=== PATIENT | female | born 1935 | race African-American/Black ===

== ENCOUNTER 2020-01-30 13:42 | Inpatient (IN) | payer OTHER ==
[~2020-01-30] VITALS: Ht 154.9 cm; Wt 57.8 kg
[2020-01-30 13:50] VITALS: BP 86/47
[2020-01-30] MEDS ORDERED: AMLODIPINE BESY10 MG ORAL (13:59)
[2020-01-30] MEDS ORDERED: ATORVASTATIN CA40 MG GT (14:00)
--- NOTE | 2020-01-30 14:12 | Emergency Room Report ---
History of Present Illness General Chief Complaint: General Complaint Source: Medical Record, EMS Present Illness HPI Patient is a 84-year-old female brought in by EMS from her extended care facility past medical history of CVA, hemiplegia, diabetes, COPD, renal insufficiency, hyperlipidemia, hypothyroidism, GERD, CHF, and pacemaker in place who was brought into the ER for hypotension. Patient is nonverbal and therefore unable to obtain further history at this time. Patient given 300 cc of IV fluids by EMS. Patient now has blood pressure in the 90s. COVID-19 risk:Travel to affect: No Has patient experienced bliss: No Coronavirus symptoms experienc: Fever (T>100.4F or >38C) Allergies: Coded Allergies: No Known Allergies (Unverified , 01/30/20) Patient History Reviewed Nursing Documentation: PMH: Agreed; PSxH: Agreed Review of Systems All Other Systems: negative except mentioned in HPI Physical Exam Vital Signs Date Time Temp Pulse Resp B/P (MAP) Pulse Ox O2 Delivery O2 Flow Rate FiO2 01/30/20 13:43 98.1 102 18 86/47 (60) 95 Room Air Sp02 EP Interpretation: reviewed, normal General Appearance: other - Contracted elderly female nonverbal responsive to pain Head: normocephalic, atraumatic Eyes: bilateral eye normal inspection, bilateral eye PERRL ENT: normal ENT inspection Neck: full range of motion, supple/symm/no masses Respiratory: chest non-tender, lungs clear, normal breath sounds, speaking full sentences Cardiovascular #1: tachycardia Gastrointestinal: non tender, soft, other - Tube in place Rectal: deferred Genitourinary: other - Tovar catheter in place Psychiatric: other - Able to assess due to the fact the patient is nonverbal Skin: no rash Medical Decision Making Last Vital Signs Date Time Temp Pulse Resp B/P (MAP) Pulse Ox O2 Delivery O2 Flow Rate FiO2 01/30/20 13:43 98.1 102 18 86/47 (60) 95 Room Air Tamia Kruse M.D. Jan 30, 2020 14:12
[2020-01-30 14:15] VITALS: BP 90/53
[2020-01-30] MEDS ORDERED: LEVOTHYROXINE75 MCG GT (14:19)
[2020-01-30] MEDS ORDERED: DOCUSATE SODIU100 MG ORAL (14:19)
[2020-01-30] MEDS ORDERED: LACTULOSE20 GM/301 GT (14:19)
[2020-01-30] MEDS ORDERED: TYLENOL325 MG GT (14:19)
[2020-01-30] MEDS ORDERED: FAMOTIDINE20 MG ORAL (14:19)
[2020-01-30] MEDS ORDERED: LOVENOX10 M3 SUBQ (14:19)
[2020-01-30] MEDS ORDERED: MULTIVITAMINS1 EAC8 GT (14:19)
[2020-01-30] MEDS ORDERED: BISACODYL10 M1 RC (14:19)
[2020-01-30] MEDS ORDERED: CATAPRES0.1 MG GT (14:19)
[2020-01-30] MEDS ORDERED: IPRATROPIU0.2 MG/1 M HHN (14:19)
--- NOTE | 2020-01-30 14:32 | Emergency Room Report ---
History of Present Illness General Chief Complaint: General Complaint Source: Medical Record, EMS Present Illness COVID-19 risk:Travel to affect: No Has patient experienced bliss: No Coronavirus symptoms experienc: Fever (T>100.4F or >38C) Allergies: Coded Allergies: No Known Allergies (Unverified , 01/30/20) Physical Exam Vital Signs Date Time Temp Pulse Resp B/P (MAP) Pulse Ox O2 Delivery O2 Flow Rate FiO2 01/30/20 13:43 98.1 102 18 86/47 (60) 95 Room Air Procedures Critical Care Time Critical Care Time Total critical care time: Approximately 40 minutes. Due to a high probability of clinically significant, life threatening deterioration, the patient required my highest level of preparedness to intervene emergently and I personally spent this critical care time directly and personally managing the patient. This critical care time included obtaining a history; examining the patient; pulse oximetry; ordering and review of studies; arranging urgent treatment with development of a management plan; evaluation of patient's response to treatment ; frequent reassessment; and, discussions with other providers.This critical care time was performed to assess and manage the high probability of imminent, life-threatening deterioration that could result in multi-organ failure. It was exclusive of separately billable procedures and treating other patients and teaching time. Please see MDM section and the rest of the note for further information on patient assessment and treatment. Medical Decision Making Diagnostic Impression: Primary Impression: Septic shock Additional Impressions: Elevated troponin Anemia ER Course Patient has been pancultured. Patient's blood pressure improved with IV fluids. Patient's chest x-ray demonstrates no acute cardiopulmonary pathology. Patient started on vancomycin as well as cefepime for sepsis.Covid-19 swab sent. Patient also has elevated troponin. EKG demonstrates no ST elevation. Patient given aspirin. Patient has anemia not currently requiring emergent blood transfusion. Patient to be admitted to stepdown floor in critical but improved condition Laboratory Tests Test 01/30/20 15:00 01/30/20 15:50 01/30/20 16:00 Arterial Blood pH 7.482 (7.350-7.450) Arterial Blood Partial Pressure CO2 34.5 mmHg (35.0-45.0) L Arterial Blood Partial Pressure O2 96.7 mmHg (75.0-100.0) Arterial Blood HCO3 25.2 mmol/L (22.0-26.0) Arterial Blood Oxygen Saturation 97.8 % (95-100) Arterial Blood Base Excess 1.8 (-2-2) Lakhwinder Test Positive White Blood Count 31.5 K/UL (4.8-10.8) *H Red Blood Count 2.85 M/UL (4.20-5.40) L Hemoglobin 8.2 G/DL (12.0-16.0) L Hematocrit 25.0 % (37.0-47.0) L Mean Corpuscular Volume 88 FL (80-99) Mean Corpuscular Hemoglobin 28.7 PG (27.0-31.0) Mean Corpuscular Hemoglobin Concent 32.7 G/DL (32.0-36.0) Red Cell Distribution Width 15.6 % (11.6-14.8) H Platelet Count 153 K/UL (150-450) Mean Platelet Volume 8.6 FL (6.5-10.1) Neutrophils (%) (Auto) % (45.0-75.0) Lymphocytes (%) (Auto) % (20.0-45.0) Monocytes (%) (Auto) % (1.0-10.0) Eosinophils (%) (Auto) % (0.0-3.0) Basophils (%) (Auto) % (0.0-2.0) Neutrophils % (Manual) Pending Lymphocytes % (Manual) Pending Platelet Estimate Pending Platelet Morphology Pending Prothrombin Time 11.9 SEC (9.30-11.50) H Prothrombin Time INR 1.1 (0.9-1.1) Activated Partial Thromboplast Time 32 SEC (23-33) Sodium Level 137 MMOL/L (136-145) Potassium Level 5.1 MMOL/L (3.5-5.1) Chloride Level 103 MMOL/L (98-107) Carbon Dioxide Level 26 MMOL/L (21-32) Anion Gap 8 mmol/L (5-15) Blood Urea Nitrogen 49 mg/dL (7-18) H Creatinine 1.1 MG/DL (0.55-1.30) Estimated Glomerular Filtration Rate 57.7 mL/min (>60) Glucose Level 89 MG/DL (74-106) Lactic Acid Level 2.30 mmol/L (0.4-2.0) H Calcium Level 8.1 MG/DL (8.5-10.1) L Phosphorus Level 3.0 MG/DL (2.5-4.9) Magnesium Level 2.0 MG/DL (1.8-2.4) Total Bilirubin 0.2 MG/DL (0.2-1.0) Aspartate Amino Transferase (AST) 57 U/L (15-37) H Alanine Aminotransferase (ALT) 38 U/L (12-78) Alkaline Phosphatase 135 U/L (46-116) H Troponin I 0.128 ng/mL (0.000-0.056) Pro-B-Type Natriuretic Peptide > 92901 pg/mL (0-125) H Total Protein 5.6 G/DL (6.4-8.2) L Albumin 1.4 G/DL (3.4-5.0) L Globulin 4.2 g/dL Albumin/Globulin Ratio 0.3 (1.0-2.7) L Urine Color Pending Urine Appearance Pending Urine pH Pending Urine Specific [place] Pending Urine Protein Pending Urine Glucose (UA) Pending Urine Ketones Pending Urine Blood Pending Urine Nitrite Pending Urine Bilirubin Pending Urine Urobilinogen Pending Urine Leukocyte Esterase Pending Microbiology Date/Time Source Procedure Growth Status 01/30/20 15:40 Nasal Nares - Final Complete 01/30/20 15:40 Nasal Nares - Final Complete EKG Diagnostic Results EKG Time: 14:21 EP Interpretation: MD Aixa Rate: normal Rhythm: other - atrial sensed v-paced rhythm ST Segments: no acute changes ASA given to the pt in ED: No Rhythm Strip Diag. Results Rhythm Strip Time: 14:31 EP Interpretation: yes - MD Aixa Rate: 96 Rhythm: no PVC's, no ectopy, other - paced rhythm Last Vital Signs Date Time Temp Pulse Resp B/P (MAP) Pulse Ox O2 Delivery O2 Flow Rate FiO2 01/30/20 13:43 98.1 102 18 86/47 (60) 95 Room Air Disposition: ADMITTED INPATIENT Condition: Serious Physician Consult: Dr. Poly MD to admit to Step down unit in critical improved condition Sepsis Event Note Focused Exam Allergies: Coded Allergies: No Known Allergies (Unverified , 01/30/20) Date Exam Occurred: Jan 30, 2020 Time Exam Occurred: 16:00 Laboratory Studies Laboratory Tests Test 01/30/20 15:00 3/18/20 15:50 01/30/20 16:00 Arterial Blood pH 7.482 (7.350-7.450) Arterial Blood Partial Pressure CO2 34.5 mmHg (35.0-45.0) L Arterial Blood Partial Pressure O2 96.7 mmHg (75.0-100.0) Arterial Blood HCO3 25.2 mmol/L (22.0-26.0) Arterial Blood Oxygen Saturation 97.8 % (95-100) Arterial Blood Base Excess 1.8 (-2-2) Lakhwinder Test Positive White Blood Count 31.5 K/UL (4.8-10.8) *H Red Blood Count 2.85 M/UL (4.20-5.40) L Hemoglobin 8.2 G/DL (12.0-16.0) L Hematocrit 25.0 % (37.0-47.0) L Mean Corpuscular Volume 88 FL (80-99) Mean Corpuscular Hemoglobin 28.7 PG (27.0-31.0) Mean Corpuscular Hemoglobin Concent 32.7 G/DL (32.0-36.0) Red Cell Distribution Width 15.6 % (11.6-14.8) H Platelet Count 153 K/UL (150-450) Mean Platelet Volume 8.6 FL (6.5-10.1) Neutrophils (%) (Auto) % (45.0-75.0) Lymphocytes (%) (Auto) % (20.0-45.0) Monocytes (%) (Auto) % (1.0-10.0) Eosinophils (%) (Auto) % (0.0-3.0) Basophils (%) (Auto) % (0.0-2.0) Neutrophils % (Manual) Pending Lymphocytes % (Manual) Pending Platelet Estimate Pending Platelet Morphology Pending Prothrombin Time 11.9 SEC (9.30-11.50) H Prothromb Time International Ratio 1.1 (0.9-1.1) Activated Partial Thromboplast Time 32 SEC (23-33) Sodium Level 137 MMOL/L (136-145) Potassium Level 5.1 MMOL/L (3.5-5.1) Chloride Level 103 MMOL/L (98-107) Carbon Dioxide Level 26 MMOL/L (21-32) Anion Gap 8 mmol/L (5-15) Blood Urea Nitrogen 49 mg/dL (7-18) H Creatinine 1.1 MG/DL (0.55-1.30) Estimat Glomerular Filtration Rate 57.7 mL/min (>60) Glucose Level 89 MG/DL (74-106) Lactic Acid Level 2.30 mmol/L (0.4-2.0) H Calcium Level 8.1 MG/DL (8.5-10.1) L Phosphorus Level 3.0 MG/DL (2.5-4.9) Magnesium Level 2.0 MG/DL (1.8-2.4) Total Bilirubin 0.2 MG/DL (0.2-1.0) Aspartate Amino Transf (AST/SGOT) 57 U/L (15-37) H Alanine Aminotransferase (ALT/SGPT) 38 U/L (12-78) Alkaline Phosphatase 135 U/L (46-116) H Troponin I 0.128 ng/mL (0.000-0.056) Pro-B-Type Natriuretic Peptide > 49879 pg/mL (0-125) H Total Protein 5.6 G/DL (6.4-8.2) L Albumin 1.4 G/DL (3.4-5.0) L Globulin 4.2 g/dL Albumin/Globulin Ratio 0.3 (1.0-2.7) L Urine Color Pending Urine Appearance Pending Urine pH Pending Urine Specific [place] Pending Urine Protein Pending Urine Glucose (UA) Pending Urine Ketones Pending Urine Blood Pending Urine Nitrite Pending Urine Bilirubin Pending Urine Urobilinogen Pending Urine Leukocyte Esterase Pending Vital Signs Last 24 Hour Vital Signs Date Time Temp Pulse Resp B/P (MAP) Pulse Ox O2 Delivery O2 Flow Rate FiO2 01/30/20 13:50 98 18 Room Air 01/30/20 13:50 98.1 98 18 86/47 95 Room Air 01/30/20 13:43 98.1 102 18 86/47 (60) 95 Room Air Respiratory Exam: Clear Cardiovascular Exam: RRR Capillary Refill: Less Than 2 Seconds Peripheral Pulse: Strong Pulse Location: Carotid Skin Exam: Normal Tamia Gonzalez M.D. Jan 30, 2020 14:32
--- NOTE | 2020-01-30 15:04 | Diagnostic Imaging Report ---
Indication: Dyspnea Comparison: None A single view chest radiograph was obtained. Findings: No definite infiltrate or pulmonary vascular congestion identified. There is a pacemaker on the right. The heart is enlarged. The aorta is mildly enlarged consistent with atherosclerotic vascular disease. The bones are osteopenic. There are thoracic vertebral enthesophytes at multiple levels. Impression: No acute disease
[2020-01-30 15:30] VITALS: BP 92/48
[2020-01-30 16:41] LABS: ANION GAP 8 mmol/L (5-15); BLOOD UREA NITROGEN 49 mg/dL (7-18); CALCIUM 8.1 MG/DL (8.5-10.1); CARBON DIOXIDE 26 MMOL/L (21-32); CHLORIDE 103 MMOL/L (98-107); CREATININE 1.1 MG/DL (0.55-1.30); POTASSIUM 5.1 MMOL/L (3.5-5.1); SODIUM 137 MMOL/L (136-145)
[2020-01-30 16:45] LABS: HEMOGLOBIN 8.2 G/DL (12.0-16.0); INR 1.1 (0.9-1.1); MEAN CORPUSCULAR VOLUME 88 FL (80-99); PLATELET COUNT 153 K/UL (150-450); RED BLOOD COUNT 2.85 M/UL (4.20-5.40); RED CELL DISTRIBUTION WIDTH 15.6 % (11.6-14.8)
[2020-01-30 16:48] LABS: WHITE BLOOD COUNT 31.5 K/UL (4.8-10.8)
[2020-01-30 16:51] LABS: ALANINE AMINOTRANSFERASE 38 U/L (12-78); ALBUMIN 1.4 G/DL (3.4-5.0); ALBUMIN/GLOBULIN RATIO 0.3 (1.0-2.7); ALKALINE PHOSPHATASE 135 U/L (46-116); ASPARTATE AMINO TRANSFERASE 57 U/L (15-37); BILIRUBIN,TOTAL 0.2 MG/DL (0.2-1.0)
[2020-01-30] MEDS ORDERED: Cefepime 2gm ONE ×2 (16:56→17:30)
[2020-01-30] MEDS ORDERED: Cefepime HCl 2 GM in D5W 55 ML IVPB ONE (17:00)
[2020-01-30] MEDS ORDERED: Vancomycin 1.25gm/NS Premix 275 ML IVPB ONE (17:00)
[2020-01-30] MEDS ORDERED: Vancomycin 1.25gm/NS Premix 275 ML IVPB SCH (17:00)
[2020-01-30 17:10] VITALS: BP 101/52
[2020-01-30] MEDS ORDERED: Aspirin Baby 81mg NG STA (17:11)
[2020-01-30 18:07] LABS: APPEARANCE,URINE CLEAR; BILIRUBIN, URINE NEGATIVE (NEGATIVE); COLOR,URINE PALE YELLOW; GLUCOSE, URINE (UA) NEGATIVE (NEGATIVE); KETONES,URINE NEGATIVE (NEGATIVE); LEUKOCYTE ESTERASE ,URINE 3+ (NEGATIVE); NITRITE,URINE NEGATIVE (NEGATIVE); PH,URINE 6 (4.5-8.0); PROTEIN,URINE 3+ (NEGATIVE); UROBILINOGEN,URINE NORMAL MG/DL (0.0-1.0)
--- NOTE | 2020-01-30 18:48 | History and Physical ---
History of Present Illness General Date patient seen: Jan 30, 2020 Time patient seen: 18:41 Reason for Hospitalization: General Complaint Present Illness HPI 84-year-old female brought in by EMS from SNF with hypotension, she has past medical history of CVA, hemiplegia, DM, COPD, CKD, hyperlipidemia, hypothyroidism, GERD, unspecified CHF, S/p PPM Patient is nonverbal and therefore unable to obtain further history at this time. Information obtained from ED physician and chart review. Patient given fluid bolus in ED with improvement in hypotension. Lactate found to be elevated, also found to have minimal pyuria. CXR clear. Influenza swab negative. Given vanco and cefepime and referred for admission. Of note, COVID19 also sent in ER. Allergies: Coded Allergies: No Known Allergies (Unverified , 01/30/20) Medication History Scheduled Amlodipine Besylate* (Amlodipine Besylate*), 10 MG ORAL DAILY, (Reported) Atorvastatin Calcium* (Atorvastatin Calcium*), 40 MG GT BEDTIME, (Reported) Bisacodyl (Bisacodyl), 10 MG RC DAILY, (Reported) Clonidine Hcl* (Catapres*), 0.1 MG GT EVERY 6 HOURS, (Reported) Docusate Sodium* (Docusate Sodium*), 100 MG ORAL DAILY, (Reported) Enoxaparin* (Lovenox*), 300 MG SUBQ DAILY, (Reported) Famotidine* (Pepcid 20mg tablet*), 20 MG ORAL DAILY, (Reported) Levothyroxine Sodium* (Levothyroxine Sodium*), 25 MCG GT DAILY, (Reported) Multivitamin With Minerals (Multivitamins With Minerals*), 1 TAB GT DAILY, ( Reported) Scheduled PRN Acetaminophen (Tylenol), 650 MG GT Q6H PRN for Prn Pain/Headache/Temp > 101, ( Reported) Ipratropium Barry 0.5MG/2.5ML (Ipratropium Barry 0.5MG/2.5ML), 0.5 MG HHN Q6H PRN for Shortness of Breath, (Reported) Miscellaneous Medications Lactulose (Lactulose*), 20 ML GT, (Reported) Patient History Healthcare decision maker N Resuscitation status Advanced Directive on File Review of Systems ROS Narrative Unable to obtain due to medical condition Physical Exam General Appearance: alert, lethargic, confused HEENT: atraumatic, anicteric Neck: supple, normal inspection Respiratory/Chest: lungs clear, normal breath sounds, no respiratory distress Cardiovascular/Chest: normal rate, regular rhythm Abdomen: non tender, soft, no organomegaly Extremities: non-tender, normal inspection Neurologic: no motor/sensory deficits, alert Last 24 Hour Vital Signs Date Time Temp Pulse Resp B/P (MAP) Pulse Ox O2 Delivery O2 Flow Rate FiO2 01/30/20 17:10 97.9 89 18 101/52 99 Nasal Cannula 2.0 01/30/20 15:30 98.0 92 17 92/48 97 Nasal Cannula 2.0 01/30/20 14:15 95 18 90/53 100 Nasal Cannula 2.0 01/30/20 13:50 98 18 Room Air 01/30/20 13:50 98.1 98 18 86/47 95 Room Air 01/30/20 13:43 98.1 102 18 86/47 (60) 95 Room Air Laboratory Tests Test 01/30/20 15:00 01/30/20 15:50 01/30/20 16:40 Arterial Blood pH 7.482 (7.350-7.450) Arterial Blood Partial Pressure CO2 34.5 mmHg (35.0-45.0) L Arterial Blood Partial Pressure O2 96.7 mmHg (75.0-100.0) Arterial Blood HCO3 25.2 mmol/L (22.0-26.0) Arterial Blood Oxygen Saturation 97.8 % (95-100) Arterial Blood Base Excess 1.8 (-2-2) Lakhwinder Test Positive White Blood Count 31.5 K/UL (4.8-10.8) *H Red Blood Count 2.85 M/UL (4.20-5.40) L Hemoglobin 8.2 G/DL (12.0-16.0) L Hematocrit 25.0 % (37.0-47.0) L Mean Corpuscular Volume 88 FL (80-99) Mean Corpuscular Hemoglobin 28.7 PG (27.0-31.0) Mean Corpuscular Hemoglobin Concent 32.7 G/DL (32.0-36.0) Red Cell Distribution Width 15.6 % (11.6-14.8) H Platelet Count 153 K/UL (150-450) Mean Platelet Volume 8.6 FL (6.5-10.1) Neutrophils (%) (Auto) % (45.0-75.0) Lymphocytes (%) (Auto) % (20.0-45.0) Monocytes (%) (Auto) % (1.0-10.0) Eosinophils (%) (Auto) % (0.0-3.0) Basophils (%) (Auto) % (0.0-2.0) Differential Total Cells Counted 100 Neutrophils % (Manual) 65 % (45-75) Lymphocytes % (Manual) 7 % (20-45) L Monocytes % (Manual) 6 % (1-10) Eosinophils % (Manual) 0 % (0-3) Basophils % (Manual) 1 % (0-2) Band Neutrophils 21 % (0-8) H Platelet Estimate Adequate Platelet Morphology Normal Hypochromasia 1+ Anisocytosis 1+ Prothrombin Time 11.9 SEC (9.30-11.50) H Prothromb Time International Ratio 1.1 (0.9-1.1) Activated Partial Thromboplast Time 32 SEC (23-33) Sodium Level 137 MMOL/L (136-145) Potassium Level 5.1 MMOL/L (3.5-5.1) Chloride Level 103 MMOL/L (98-107) Carbon Dioxide Level 26 MMOL/L (21-32) Anion Gap 8 mmol/L (5-15) Blood Urea Nitrogen 49 mg/dL (7-18) H Creatinine 1.1 MG/DL (0.55-1.30) Estimat Glomerular Filtration Rate 57.7 mL/min (>60) Glucose Level 89 MG/DL (74-106) Lactic Acid Level 2.30 mmol/L (0.4-2.0) H Calcium Level 8.1 MG/DL (8.5-10.1) L Phosphorus Level 3.0 MG/DL (2.5-4.9) Magnesium Level 2.0 MG/DL (1.8-2.4) Total Bilirubin 0.2 MG/DL (0.2-1.0) Aspartate Amino Transf (AST/SGOT) 57 U/L (15-37) H Alanine Aminotransferase (ALT/SGPT) 38 U/L (12-78) Alkaline Phosphatase 135 U/L (46-116) H Troponin I 0.128 ng/mL (0.000-0.056) Pro-B-Type Natriuretic Peptide > 59139 pg/mL (0-125) H Total Protein 5.6 G/DL (6.4-8.2) L Albumin 1.4 G/DL (3.4-5.0) L Globulin 4.2 g/dL Albumin/Globulin Ratio 0.3 (1.0-2.7) L Urine Color Pale yellow Urine Appearance Clear Urine pH 6 (4.5-8.0) Urine Specific [place] 1.010 (1.005-1.035) Urine Protein 3+ (NEGATIVE) H Urine Glucose (UA) Negative (NEGATIVE) Urine Ketones Negative (NEGATIVE) Urine Blood 4+ (NEGATIVE) H Urine Nitrite Negative (NEGATIVE) Urine Bilirubin Negative (NEGATIVE) Urine Urobilinogen Normal MG/DL (0.0-1.0) Urine Leukocyte Esterase 3+ (NEGATIVE) H Urine RBC 0-2 /HPF (0 - 2) Urine WBC 2-4 /HPF (0 - 2) Urine Squamous Epithelial Cells Few /LPF (NONE/OCC) Urine Bacteria Few /HPF (NONE) Microbiology Date/Time Source Procedure Growth Status 01/30/20 15:40 Nasal Nares - Final Complete 01/30/20 15:40 Nasal Nares - Final Complete Height (Feet): 5 Height (Inches): 2.00 Weight (Pounds): 130 Assessment/Plan Assessment/Plan: 84 year old woman with history of CVA, hemiplegia, DM, COPD, CKD, hyperlipidemia , hypothyroidism, GERD, unspecified CHF, S/p PPM brought in from SNF with hypotension, found to be septic with leukocytosis and minimal pyuria #Sepsis #Possible UTI #Hypotension #Elevated lactate #Leukocytosis -admitted to [facility], inpatient -cardiac monitoring -continue broad spectrum antibiotics, IV saline -hold anti-hypertensives -follow up COVID 19 sent in ED, less likely -Droplet precautions for now -ID consulted #HTN #HLD #Uncspecifed CHF #Elevated BNP #S/p PPM -hold BP meds as above -check TTE -monitor closely for evidence of fluid overload -consult Cardiology #history of CVA #Likely underlying dementia #Possible acute metabolic encephalopathy due to sepsis -supportive care -monitor mentation -fall precautions, aspiration precautions -PT/OT/SUGAR TRUCKER -Frequent orienting #Unspecified CKD -monitor renal function #Hypothyroidism -cont levothyroxine I spent 70 minutes on this patient's case, and >50% was dedicated to counseling and/or care coordination. Carmine Major MD Jan 30, 2020 18:48
[2020-01-30] MEDS ORDERED: Albuterol/Ipratropium 3ml neb HHN PRN (19:00)
[2020-01-30] MEDS ORDERED: DiphenhydrAMINE 25mg Tab ORAL PRN (19:00)
[2020-01-30 20:00] VITALS: BP 130/71
[2020-01-30] MEDS ORDERED: Vancomycin 1.25gm/NS Premix IVPB ONE (20:30)
[2020-01-30] MEDS: Docusate 100mg cap ORAL SCH (20:30)
[2020-01-30] MEDS ORDERED: Cefepime HCl 1 GM in D5W 55 ML IVPB SCH (21:00)
[2020-01-30] MEDS: Heparin 5000 units/ml inj SUBQ SCH (21:00)
[2020-01-30] MEDS: Atorvastatin 20mg tab ORAL SCH (21:14)
[2020-01-31] VITALS: BP 125/51
[2020-01-31 04:00] VITALS: BP 101/47
[2020-01-31 05:10] LABS: HEMATOCRIT 23.4 % (37.0-47.0); HEMOGLOBIN 7.8 G/DL (12.0-16.0); MEAN CORPUSCULAR VOLUME 85 FL (80-99); PLATELET COUNT 140 K/UL (150-450); RED BLOOD COUNT 2.74 M/UL (4.20-5.40); RED CELL DISTRIBUTION WIDTH 13.7 % (11.6-14.8)
[2020-01-31 05:29] LABS: WHITE BLOOD COUNT 34.5 K/UL (4.8-10.8)
[2020-01-31 05:32] LABS: ANION GAP 12 mmol/L (5-15); BLOOD UREA NITROGEN 41 mg/dL (7-18); CALCIUM 8.3 MG/DL (8.5-10.1); CARBON DIOXIDE 23 MMOL/L (21-32); CHLORIDE 108 MMOL/L (98-107); POTASSIUM 3.6 MMOL/L (3.5-5.1); SODIUM 143 MMOL/L (136-145)
[2020-01-31] MEDS: Levothyroxine 25mcg tab ORAL SCH (06:07)
[2020-01-31 07:48] VITALS: BP 128/67
[2020-01-31] MEDS: Docusate 100mg cap ORAL SCH ×2 (09:00→20:22)
[2020-01-31] MEDS: Heparin 5000 units/ml inj SUBQ SCH ×2 (09:43→20:22)
--- NOTE | 2020-01-31 11:28 | Consultation ---
History of Present Illness General Date patient seen: Jan 31, 2020 Time patient seen: 11:20 Chief Complaint: General Complaint Present Illness HPI 84-year-old female brought in by EMS from SNF with hypotension, she has past medical history of CVA, hemiplegia, DM, COPD, CKD, hyperlipidemia, hypothyroidism, GERD, unspecified CHF, S/p PPM Patient is nonverbal Patient given fluid bolus in ED with improvement in hypotension. Lactate found to be elevated, also found to have minimal pyuria. CXR clear. Influenza swab negative. Given vanco and cefepime and referred for admission. Cardiology consulted for CHF Allergies: Coded Allergies: No Known Allergies (Unverified , 01/30/20) Medication History Scheduled Amlodipine Besylate* (Amlodipine Besylate*), 10 MG ORAL DAILY, (Reported) Atorvastatin Calcium* (Atorvastatin Calcium*), 40 MG GT BEDTIME, (Reported) Bisacodyl (Bisacodyl), 10 MG RC DAILY, (Reported) Clonidine Hcl* (Catapres*), 0.1 MG GT EVERY 6 HOURS, (Reported) Docusate Sodium* (Docusate Sodium*), 100 MG ORAL DAILY, (Reported) Enoxaparin* (Lovenox*), 300 MG SUBQ DAILY, (Reported) Famotidine* (Pepcid 20mg tablet*), 20 MG ORAL DAILY, (Reported) Levothyroxine Sodium* (Levothyroxine Sodium*), 25 MCG GT DAILY, (Reported) Multivitamin With Minerals (Multivitamins With Minerals*), 1 TAB GT DAILY, ( Reported) Scheduled PRN Acetaminophen (Tylenol), 650 MG GT Q6H PRN for Prn Pain/Headache/Temp > 101, ( Reported) Ipratropium [place] 0.5MG/2.5ML (Ipratropium [place] 0.5MG/2.5ML), 0.5 MG HHN Q6H PRN for Shortness of Breath, (Reported) Miscellaneous Medications Lactulose (Lactulose*), 20 ML GT, (Reported) Patient History Healthcare decision maker N Resuscitation status Full Code Advanced Directive on File Review of Systems Constitutional: Reports: no symptoms Eye: Reports: no symptoms ENT: Reports: no symptoms Respiratory: Reports: no symptoms Cardiovascular: Reports: no symptoms Gastrointestinal: Reports: no symptoms Genitourinary: Reports: no symptoms Musculoskeletal: Reports: no symptoms Skin: Reports: no symptoms Psychiatric: Reports: no symptoms Neurological: Reports: no symptoms Endocrine: Reports: no symptoms Hematologic/Lymphatic: Reports: no symptoms Physical Exam General Appearance: lethargic, confused Lines, tubes and drains: peripheral HEENT: normocephalic, atraumatic, anicteric, mucous membranes moist, PERRL Neck: non-tender, normal alignment, supple, normal inspection Respiratory/Chest: chest wall non-tender, lungs clear Cardiovascular/Chest: normal peripheral pulses, normal rate, regular rhythm Abdomen: normal bowel sounds, non tender, soft, no organomegaly, no mass Extremities: normal range of motion, non-tender, normal inspection, no calf tenderness, normal capillary refill, non-pitting Skin Exam: normal pigmentation, warm/dry, cyanotic Neurologic: marker delivery II-XII grossly normal, no motor/sensory deficits Last 24 Hour Vital Signs Date Time Temp Pulse Resp B/P (MAP) Pulse Ox O2 Delivery O2 Flow Rate FiO2 01/31/20 08:00 Nasal Cannula 2.0 01/31/20 08:00 107 01/31/20 07:48 98.1 109 22 128/67 (87) 100 01/31/20 04:00 Nasal Cannula 2.0 01/31/20 04:00 118 01/31/20 04:00 98.6 118 22 101/47 (65) 96 01/31/20 00:00 115 01/31/20 00:00 98.2 119 24 125/51 (75) 96 01/31/20 00:00 Nasal Cannula 2.0 01/30/20 20:58 Nasal Cannula 2.0 01/30/20 20:36 121 01/30/20 20:00 98.0 118 24 130/71 (90) 96 01/30/20 19:45 97.9 89 18 101/52 99 Nasal Cannula 2.0 01/30/20 17:10 97.9 89 18 101/52 99 Nasal Cannula 2.0 01/30/20 15:30 98.0 92 17 92/48 97 Nasal Cannula 2.0 01/30/20 14:15 95 18 90/53 100 Nasal Cannula 2.0 01/30/20 13:50 98 18 Room Air 01/30/20 13:50 98.1 98 18 86/47 95 Room Air 01/30/20 13:43 98.1 102 18 86/47 (60) 95 Room Air Intake and Output 01/30/20 01/31/20 19:00 07:00 Intake Total 0 ml 640 ml Output Total 1000 ml Balance 0 ml -360 ml Intake Oral 0 ml IV Total 600 ml Tube Feeding 40 ml Output Urine Total 1000 ml # Bowel Movements 3 Laboratory Tests Test 01/30/20 15:00 01/30/20 15:50 01/30/20 16:40 01/30/20 19:30 Arterial Blood pH 7.482 (7.350-7.450) Arterial Blood Partial Pressure CO2 34.5 mmHg (35.0-45.0) L Arterial Blood Partial Pressure O2 96.7 mmHg (75.0-100.0) Arterial Blood HCO3 25.2 mmol/L (22.0-26.0) Arterial Blood Oxygen Saturation 97.8 % (95-100) Arterial Blood Base Excess 1.8 (-2-2) Lakhwinder Test Positive White Blood Count 31.5 K/UL (4.8-10.8) *H Red Blood Count 2.85 M/UL (4.20-5.40) L Hemoglobin 8.2 G/DL (12.0-16.0) L Hematocrit 25.0 % (37.0-47.0) L Mean Corpuscular Volume 88 FL (80-99) Mean Corpuscular Hemoglobin 28.7 PG (27.0-31.0) Mean Corpuscular Hemoglobin Concent 32.7 G/DL (32.0-36.0) Red Cell Distribution Width 15.6 % (11.6-14.8) H Platelet Count 153 K/UL (150-450) Mean Platelet Volume 8.6 FL (6.5-10.1) Neutrophils (%) (Auto) % (45.0-75.0) Lymphocytes (%) (Auto) % (20.0-45.0) Monocytes (%) (Auto) % (1.0-10.0) Eosinophils (%) (Auto) % (0.0-3.0) Basophils (%) (Auto) % (0.0-2.0) Differential Total Cells Counted 100 Neutrophils % (Manual) 65 % (45-75) Lymphocytes % (Manual) 7 % (20-45) L Monocytes % (Manual) 6 % (1-10) Eosinophils % (Manual) 0 % (0-3) Basophils % (Manual) 1 % (0-2) Band Neutrophils 21 % (0-8) H Platelet Estimate Adequate Platelet Morphology Normal Hypochromasia 1+ Anisocytosis 1+ Prothrombin Time 11.9 SEC (9.30-11.50) H Prothromb Time International Ratio 1.1 (0.9-1.1) Activated Partial Thromboplast Time 32 SEC (23-33) Sodium Level 137 MMOL/L (136-145) Potassium Level 5.1 MMOL/L (3.5-5.1) Chloride Level 103 MMOL/L (98-107) Carbon Dioxide Level 26 MMOL/L (21-32) Anion Gap 8 mmol/L (5-15) Blood Urea Nitrogen 49 mg/dL (7-18) H Creatinine 1.1 MG/DL (0.55-1.30) Estimat Glomerular Filtration Rate 57.7 mL/min (>60) Glucose Level 89 MG/DL (74-106) Lactic Acid Level 2.30 mmol/L (0.4-2.0) H 3.20 mmol/L (0.66-2.22) H Calcium Level 8.1 MG/DL (8.5-10.1) L Phosphorus Level 3.0 MG/DL (2.5-4.9) Magnesium Level 2.0 MG/DL (1.8-2.4) Total Bilirubin 0.2 MG/DL (0.2-1.0) Aspartate Amino Transf (AST/SGOT) 57 U/L (15-37) H Alanine Aminotransferase (ALT/SGPT) 38 U/L (12-78) Alkaline Phosphatase 135 U/L (46-116) H Troponin I 0.128 ng/mL (0.000-0.056) Pro-B-Type Natriuretic Peptide > 46133 pg/mL (0-125) H Total Protein 5.6 G/DL (6.4-8.2) L Albumin 1.4 G/DL (3.4-5.0) L Globulin 4.2 g/dL Albumin/Globulin Ratio 0.3 (1.0-2.7) L Urine Color Pale yellow Urine Appearance Clear Urine pH 6 (4.5-8.0) Urine Specific [place] 1.010 (1.005-1.035) Urine Protein 3+ (NEGATIVE) H Urine Glucose (UA) Negative (NEGATIVE) Urine Ketones Negative (NEGATIVE) Urine Blood 4+ (NEGATIVE) H Urine Nitrite Negative (NEGATIVE) Urine Bilirubin Negative (NEGATIVE) Urine Urobilinogen Normal MG/DL (0.0-1.0) Urine Leukocyte Esterase 3+ (NEGATIVE) H Urine RBC 0-2 /HPF (0 - 2) Urine WBC 2-4 /HPF (0 - 2) Urine Squamous Epithelial Cells Few /LPF (NONE/OCC) Urine Bacteria Few /HPF (NONE) Test 01/31/20 04:00 White Blood Count 34.5 K/UL (4.8-10.8) *H Red Blood Count 2.74 M/UL (4.20-5.40) L Hemoglobin 7.8 G/DL (12.0-16.0) L Hematocrit 23.4 % (37.0-47.0) L Mean Corpuscular Volume 85 FL (80-99) Mean Corpuscular Hemoglobin 28.4 PG (27.0-31.0) Mean Corpuscular Hemoglobin Concent 33.2 G/DL (32.0-36.0) Red Cell Distribution Width 13.7 % (11.6-14.8) Platelet Count 140 K/UL (150-450) L Mean Platelet Volume 7.1 FL (6.5-10.1) Neutrophils (%) (Auto) % (45.0-75.0) Lymphocytes (%) (Auto) % (20.0-45.0) Monocytes (%) (Auto) % (1.0-10.0) Eosinophils (%) (Auto) % (0.0-3.0) Basophils (%) (Auto) % (0.0-2.0) Differential Total Cells Counted 100 Neutrophils % (Manual) 64 % (45-75) Lymphocytes % (Manual) 2 % (20-45) L Monocytes % (Manual) 6 % (1-10) Eosinophils % (Manual) 2 % (0-3) Basophils % (Manual) 1 % (0-2) Promyelocytes % % (0-0) Band Neutrophils 25 % (0-8) H Platelet Estimate Decreased L Platelet Morphology Normal Hypochromasia 1+ Sodium Level 143 MMOL/L (136-145) Potassium Level 3.6 MMOL/L (3.5-5.1) Chloride Level 108 MMOL/L (98-107) H Carbon Dioxide Level 23 MMOL/L (21-32) Anion Gap 12 mmol/L (5-15) Blood Urea Nitrogen 41 mg/dL (7-18) H Creatinine 1.0 MG/DL (0.55-1.30) Estimat Glomerular Filtration Rate > 60 mL/min (>60) Glucose Level 58 MG/DL (74-106) L Lactic Acid Level 1.10 mmol/L (0.4-2.0) Calcium Level 8.3 MG/DL (8.5-10.1) L Microbiology Date/Time Source Procedure Growth Status 01/30/20 16:40 Blood Blood Culture - Preliminary Resulted 01/30/20 16:40 Blood Blood Culture - Preliminary Resulted 01/30/20 15:40 Nasal Nares - Final Complete 01/30/20 15:40 Nasal Nares - Final Complete Height (Feet): 5 Height (Inches): 2.00 Weight (Pounds): 115 Medications Current Medications Medications (Trade) Dose Ordered Sig/[place] Route PRN Reason Start Time Stop Time Status Last Admin Dose Admin Acetaminophen (Tylenol) 650 mg Q4H PRN ORAL Mild Pain (Pain Scale 1-3) 01/30/20 19:00 02/29/20 18:59 Albuterol/ Ipratropium (Albuterol/ Ipratropium) 3 ml Q6H PRN HHN Shortness of Breath 01/30/20 19:00 02/04/20 18:59 Atorvastatin Calcium (Lipitor) 40 mg BEDTIME ORAL 01/30/20 21:00 04/29/20 20:59 01/30/20 21:14 Cefepime HCl 2 gm/ Dextrose 110 ml @ 220 mls/hr Q12H IV 01/31/20 17:00 02/07/20 16:59 Dextrose (Dextrose 50%) 25 ml Q30M PRN IV Hypoglycemia 01/30/20 19:00 04/29/20 18:59 Dextrose (Dextrose 50%) 50 ml Q30M PRN IV Hypoglycemia 01/30/20 19:00 04/29/20 18:59 Diphenhydramine HCl (Benadryl) 25 mg Q6H PRN ORAL Itching/Pruritis 01/30/20 19:00 02/29/20 18:59 Docusate Sodium (Colace) 100 mg EVERY 12 HOURS ORAL 01/30/20 21:00 02/29/20 20:59 Heparin Sodium (Porcine) (Heparin 5000 units/ml) 5,000 units EVERY 12 HOURS SUBQ 01/30/20 21:00 03/15/20 20:59 01/31/20 09:43 Levothyroxine Sodium (Synthroid) 25 mcg DAILY@0630 ORAL 01/31/20 06:30 03/01/20 06:29 01/31/20 06:07 Ondansetron HCl (Zofran) 4 mg Q6H PRN IVP Nausea & Vomiting 01/30/20 19:00 02/29/20 18:59 Sodium Chloride 1,000 ml @ 100 mls/hr Q10H IVLG 01/30/20 19:48 02/29/20 19:47 01/31/20 06:07 Vancomycin HCl (Vanco rx to dose) 1 ea DAILY PRN MISC Per rx protocol 01/30/20 19:00 02/29/20 18:59 Vancomycin HCl 750 mg/Sodium Chloride 275 ml @ 183.333 mls/hr Q24H IVPB 01/31/20 21:00 02/05/20 20:59 Assessment/Plan Status: stable Assessment/Plan: Assessment/Plan Assessment/Plan: CVA Non verbal DM COPD CKD CHF GERD Pacemaker Hypotension Sepsis -Monitor on telemetry -IV fluids for hypotension -Hold blood pressure medications -Hold diuresis for now - no signs of volume overload -Echocardiogram pending -Continue to trend troponin/EKG -If patient develops dynamic ECG changes will start heparin, no signs of ACS at this time -Empiric IV abx for elevated WBC, unlikey COVID due to lack of CXR findings and lack of leukopenia Dennis Crain MD Jan 31, 2020 11:28
[2020-01-31 12:00] VITALS: BP 126/59
--- NOTE | 2020-01-31 12:08 | Consultation ---
History of Present Illness General Date patient seen: Jan 31, 2020 Chief Complaint: General Complaint Present Illness HPI This is a 84-year-old female with multiple medical comorbidities who was brought in by EMS from her care facility for evaluation of hypotension. Patient with past medical history of CVA, hemiplegia, diabetes, COPD, renal insufficiency, hyperlipidemia, hypothyroidism, GERD, CHF, and pacemaker. Med list as below.. Patient is nonverbal and therefore unable to obtain further history at this time. She is seemingly comfortable tracking with eyes but no significant verbal aspects. On admission identified to have severe leukocytosis , lactic acidosis, abnormal labs. Given IV fluid resuscitation and admitted further care management. Potentially with abdominal pain on examination as during abdominal exam she retracts. Surgery called to evaluate and assist with care. Patient seen, patient evaluated, chart reviewed Allergies: Coded Allergies: No Known Allergies (Unverified , 01/30/20) Medication History Scheduled Amlodipine Besylate* (Amlodipine Besylate*), 10 MG ORAL DAILY, (Reported) Atorvastatin Calcium* (Atorvastatin Calcium*), 40 MG GT BEDTIME, (Reported) Bisacodyl (Bisacodyl), 10 MG RC DAILY, (Reported) Clonidine Hcl* (Catapres*), 0.1 MG GT EVERY 6 HOURS, (Reported) Docusate Sodium* (Docusate Sodium*), 100 MG ORAL DAILY, (Reported) Enoxaparin* (Lovenox*), 300 MG SUBQ DAILY, (Reported) Famotidine* (Pepcid 20mg tablet*), 20 MG ORAL DAILY, (Reported) Levothyroxine Sodium* (Levothyroxine Sodium*), 25 MCG GT DAILY, (Reported) Multivitamin With Minerals (Multivitamins With Minerals*), 1 TAB GT DAILY, ( Reported) Scheduled PRN Acetaminophen (Tylenol), 650 MG GT Q6H PRN for Prn Pain/Headache/Temp > 101, ( Reported) Ipratropium [place] 0.5MG/2.5ML (Ipratropium [place] 0.5MG/2.5ML), 0.5 MG HHN Q6H PRN for Shortness of Breath, (Reported) Miscellaneous Medications Lactulose (Lactulose*), 20 ML GT, (Reported) Patient History Limited by: medical condition History Provided By: Medical Record, PMD Healthcare decision maker N Resuscitation status Full Code Advanced Directive on File Past Medical/Surgical History Past Medical/Surgical History: (1) Septic shock (2) Anemia (3) Elevated troponin (4) Sepsis Review of Systems ROS Narrative Cannot obtain given patient's baseline medical condition and mental status currently Physical Exam General Appearance: mild distress Lines, tubes and drains: peripheral HEENT: normocephalic, atraumatic, anicteric, mucous membranes moist Neck: supple, normal inspection Respiratory/Chest: no respiratory distress, no accessory muscle use, decreased breath sounds Cardiovascular/Chest: normal rate, regular rhythm Abdomen: soft, no organomegaly, no mass Genitourinary/Rectal: normal rectal exam Extremities: non-tender, normal inspection, normal capillary refill Skin Exam: warm/dry Neurologic: no motor/sensory deficits, alert, unresponsiveness Last 24 Hour Vital Signs Date Time Temp Pulse Resp B/P (MAP) Pulse Ox O2 Delivery O2 Flow Rate FiO2 01/31/20 08:00 Nasal Cannula 2.0 01/31/20 08:00 107 01/31/20 07:48 98.1 109 22 128/67 (87) 100 01/31/20 04:00 Nasal Cannula 2.0 01/31/20 04:00 118 01/31/20 04:00 98.6 118 22 101/47 (65) 96 01/31/20 00:00 115 01/31/20 00:00 98.2 119 24 125/51 (75) 96 01/31/20 00:00 Nasal Cannula 2.0 01/30/20 20:58 Nasal Cannula 2.0 01/30/20 20:36 121 01/30/20 20:00 98.0 118 24 130/71 (90) 96 01/30/20 19:45 97.9 89 18 101/52 99 Nasal Cannula 2.0 01/30/20 17:10 97.9 89 18 101/52 99 Nasal Cannula 2.0 01/30/20 15:30 98.0 92 17 92/48 97 Nasal Cannula 2.0 01/30/20 14:15 95 18 90/53 100 Nasal Cannula 2.0 01/30/20 13:50 98 18 Room Air 01/30/20 13:50 98.1 98 18 86/47 95 Room Air 01/30/20 13:43 98.1 102 18 86/47 (60) 95 Room Air Intake and Output 01/30/20 01/31/20 19:00 07:00 Intake Total 0 ml 640 ml Output Total 1000 ml Balance 0 ml -360 ml Intake Oral 0 ml IV Total 600 ml Tube Feeding 40 ml Output Urine Total 1000 ml # Bowel Movements 3 Laboratory Tests Test 01/30/20 15:00 01/30/20 15:50 01/30/20 16:40 01/30/20 19:30 Arterial Blood pH 7.482 (7.350-7.450) Arterial Blood Partial Pressure CO2 34.5 mmHg (35.0-45.0) L Arterial Blood Partial Pressure O2 96.7 mmHg (75.0-100.0) Arterial Blood HCO3 25.2 mmol/L (22.0-26.0) Arterial Blood Oxygen Saturation 97.8 % (95-100) Arterial Blood Base Excess 1.8 (-2-2) Lakhwinder Test Positive White Blood Count 31.5 K/UL (4.8-10.8) *H Red Blood Count 2.85 M/UL (4.20-5.40) L Hemoglobin 8.2 G/DL (12.0-16.0) L Hematocrit 25.0 % (37.0-47.0) L Mean Corpuscular Volume 88 FL (80-99) Mean Corpuscular Hemoglobin 28.7 PG (27.0-31.0) Mean Corpuscular Hemoglobin Concent 32.7 G/DL (32.0-36.0) Red Cell Distribution Width 15.6 % (11.6-14.8) H Platelet Count 153 K/UL (150-450) Mean Platelet Volume 8.6 FL (6.5-10.1) Neutrophils (%) (Auto) % (45.0-75.0) Lymphocytes (%) (Auto) % (20.0-45.0) Monocytes (%) (Auto) % (1.0-10.0) Eosinophils (%) (Auto) % (0.0-3.0) Basophils (%) (Auto) % (0.0-2.0) Differential Total Cells Counted 100 Neutrophils % (Manual) 65 % (45-75) Lymphocytes % (Manual) 7 % (20-45) L Monocytes % (Manual) 6 % (1-10) Eosinophils % (Manual) 0 % (0-3) Basophils % (Manual) 1 % (0-2) Band Neutrophils 21 % (0-8) H Platelet Estimate Adequate Platelet Morphology Normal Hypochromasia 1+ Anisocytosis 1+ Prothrombin Time 11.9 SEC (9.30-11.50) H Prothromb Time International Ratio 1.1 (0.9-1.1) Activated Partial Thromboplast Time 32 SEC (23-33) Sodium Level 137 MMOL/L (136-145) Potassium Level 5.1 MMOL/L (3.5-5.1) Chloride Level 103 MMOL/L (98-107) Carbon Dioxide Level 26 MMOL/L (21-32) Anion Gap 8 mmol/L (5-15) Blood Urea Nitrogen 49 mg/dL (7-18) H Creatinine 1.1 MG/DL (0.55-1.30) Estimat Glomerular Filtration Rate 57.7 mL/min (>60) Glucose Level 89 MG/DL (74-106) Lactic Acid Level 2.30 mmol/L (0.4-2.0) H 3.20 mmol/L (0.66-2.22) H Calcium Level 8.1 MG/DL (8.5-10.1) L Phosphorus Level 3.0 MG/DL (2.5-4.9) Magnesium Level 2.0 MG/DL (1.8-2.4) Total Bilirubin 0.2 MG/DL (0.2-1.0) Aspartate Amino Transf (AST/SGOT) 57 U/L (15-37) H Alanine Aminotransferase (ALT/SGPT) 38 U/L (12-78) Alkaline Phosphatase 135 U/L (46-116) H Troponin I 0.128 ng/mL (0.000-0.056) Pro-B-Type Natriuretic Peptide > 69283 pg/mL (0-125) H Total Protein 5.6 G/DL (6.4-8.2) L Albumin 1.4 G/DL (3.4-5.0) L Globulin 4.2 g/dL Albumin/Globulin Ratio 0.3 (1.0-2.7) L Urine Color Pale yellow Urine Appearance Clear Urine pH 6 (4.5-8.0) Urine Specific [place] 1.010 (1.005-1.035) Urine Protein 3+ (NEGATIVE) H Urine Glucose (UA) Negative (NEGATIVE) Urine Ketones Negative (NEGATIVE) Urine Blood 4+ (NEGATIVE) H Urine Nitrite Negative (NEGATIVE) Urine Bilirubin Negative (NEGATIVE) Urine Urobilinogen Normal MG/DL (0.0-1.0) Urine Leukocyte Esterase 3+ (NEGATIVE) H Urine RBC 0-2 /HPF (0 - 2) Urine WBC 2-4 /HPF (0 - 2) Urine Squamous Epithelial Cells Few /LPF (NONE/OCC) Urine Bacteria Few /HPF (NONE) Test 01/31/20 04:00 White Blood Count 34.5 K/UL (4.8-10.8) *H Red Blood Count 2.74 M/UL (4.20-5.40) L Hemoglobin 7.8 G/DL (12.0-16.0) L Hematocrit 23.4 % (37.0-47.0) L Mean Corpuscular Volume 85 FL (80-99) Mean Corpuscular Hemoglobin 28.4 PG (27.0-31.0) Mean Corpuscular Hemoglobin Concent 33.2 G/DL (32.0-36.0) Red Cell Distribution Width 13.7 % (11.6-14.8) Platelet Count 140 K/UL (150-450) L Mean Platelet Volume 7.1 FL (6.5-10.1) Neutrophils (%) (Auto) % (45.0-75.0) Lymphocytes (%) (Auto) % (20.0-45.0) Monocytes (%) (Auto) % (1.0-10.0) Eosinophils (%) (Auto) % (0.0-3.0) Basophils (%) (Auto) % (0.0-2.0) Differential Total Cells Counted 100 Neutrophils % (Manual) 64 % (45-75) Lymphocytes % (Manual) 2 % (20-45) L Monocytes % (Manual) 6 % (1-10) Eosinophils % (Manual) 2 % (0-3) Basophils % (Manual) 1 % (0-2) Promyelocytes % % (0-0) Band Neutrophils 25 % (0-8) H Platelet Estimate Decreased L Platelet Morphology Normal Hypochromasia 1+ Sodium Level 143 MMOL/L (136-145) Potassium Level 3.6 MMOL/L (3.5-5.1) Chloride Level 108 MMOL/L (98-107) H Carbon Dioxide Level 23 MMOL/L (21-32) Anion Gap 12 mmol/L (5-15) Blood Urea Nitrogen 41 mg/dL (7-18) H Creatinine 1.0 MG/DL (0.55-1.30) Estimat Glomerular Filtration Rate > 60 mL/min (>60) Glucose Level 58 MG/DL (74-106) L Lactic Acid Level 1.10 mmol/L (0.4-2.0) Calcium Level 8.3 MG/DL (8.5-10.1) L Microbiology Date/Time Source Procedure Growth Status 01/30/20 16:40 Blood Blood Culture - Preliminary Resulted 01/30/20 16:40 Blood Blood Culture - Preliminary Resulted 01/30/20 15:40 Nasal Nares - Final Complete 01/30/20 15:40 Nasal Nares - Final Complete Height (Feet): 5 Height (Inches): 2.00 Weight (Pounds): 115 Medications Current Medications Medications (Trade) Dose Ordered Sig/[place] Route PRN Reason Start Time Stop Time Status Last Admin Dose Admin Acetaminophen (Tylenol) 650 mg Q4H PRN ORAL Mild Pain (Pain Scale 1-3) 01/30/20 19:00 02/29/20 18:59 Albuterol/ Ipratropium (Albuterol/ Ipratropium) 3 ml Q6H PRN HHN Shortness of Breath 01/30/20 19:00 02/04/20 18:59 Atorvastatin Calcium (Lipitor) 40 mg BEDTIME ORAL 01/30/20 21:00 04/29/20 20:59 01/30/20 21:14 Cefepime HCl 2 gm/ Dextrose 110 ml @ 220 mls/hr Q12H IV 01/31/20 17:00 02/07/20 16:59 Dextrose (Dextrose 50%) 25 ml Q30M PRN IV Hypoglycemia 01/30/20 19:00 04/29/20 18:59 Dextrose (Dextrose 50%) 50 ml Q30M PRN IV Hypoglycemia 01/30/20 19:00 04/29/20 18:59 Diphenhydramine HCl (Benadryl) 25 mg Q6H PRN ORAL Itching/Pruritis 01/30/20 19:00 02/29/20 18:59 Docusate Sodium (Colace) 100 mg EVERY 12 HOURS ORAL 01/30/20 21:00 02/29/20 20:59 Heparin Sodium (Porcine) (Heparin 5000 units/ml) 5,000 units EVERY 12 HOURS SUBQ 01/30/20 21:00 03/15/20 20:59 01/31/20 09:43 Levothyroxine Sodium (Synthroid) 25 mcg DAILY@0630 ORAL 01/31/20 06:30 03/01/20 06:29 01/31/20 06:07 Ondansetron HCl (Zofran) 4 mg Q6H PRN IVP Nausea & Vomiting 01/30/20 19:00 02/29/20 18:59 Sodium Chloride 1,000 ml @ 100 mls/hr Q10H IVLG 01/30/20 19:48 02/29/20 19:47 01/31/20 06:07 Vancomycin HCl (Vanco rx to dose) 1 ea DAILY PRN MISC Per rx protocol 01/30/20 19:00 02/29/20 18:59 Vancomycin HCl 750 mg/Sodium Chloride 275 ml @ 183.333 mls/hr Q24H IVPB 01/31/20 21:00 02/05/20 20:59 Assessment/Plan Problem List: (1) Septic shock Assessment & Plan: Patient presented to emergency department with sepsis hypotension tachycardia lactic acidosis leukocytosis. On IV antibiotics Labs improving IV hydration Continue tube feeds advance goal as tolerated Abdominal exam does elicit patient to retract a bit but she is not tender peritonitis or without rebound or significant guarding. Likely startle effect rather than intra-abdominal pathology will follow with serial exams continue with current care plan thank you for let me participate in patient's care ICD Codes: A41.9 - Sepsis, unspecified organism; R65.21 - Severe sepsis with septic shock SNOMED: 43355804 (2) Decubitus skin ulcer Assessment & Plan: 84-year-old female presented on admission with multiple decubitus skin ulcers and skin concerns. Patient identified to have a unstageable sacral lower back decubitus ulcer, periwound maceration, area of necrotic eschar soft, no drainage, no abscess, no foul odor ICD Codes: L89.90 - Pressure ulcer of unspecified site, unspecified stage SNOMED: 912280808 Luther Mercedes Jan 31, 2020 12:08
--- NOTE | 2020-01-31 13:13 | General Progress Note ---
Assessment/Plan Status: stable Assessment/Plan: 84 year old woman with history of CVA, hemiplegia, DM, COPD, CKD, hyperlipidemia , hypothyroidism, GERD, unspecified CHF, S/p PPM brought in from SNF with hypotension, found to be septic with leukocytosis and minimal pyuria #Sepsis #Possible UTI #Hypotension #Elevated lactate, improved #Leukocytosis, increased to 34K -continue inpatient level of care -cardiac monitoring -continue broad spectrum antibiotics, IV fluids -hold anti-hypertensives -follow up COVID 19 sent in ED, less likely -Droplet precautions for now -ID consult #HTN #HLD #Uncspecifed CHF #Elevated BNP #S/p PPM -hold BP meds as above -TTE pending -monitor closely for evidence of fluid overload -Cards eval appreciated #history of CVA #Likely underlying dementia #Possible acute metabolic encephalopathy due to sepsis -supportive care -monitor mentation -fall precautions, aspiration precautions -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 Subjective Date patient seen: Jan 31, 2020 ROS Limited/Unobtainable: Yes Allergies: Coded Allergies: No Known Allergies (Unverified , 01/30/20) Subjective Follow up for sepsis, unclear source. No acute events overnight. WBC remains elevated. Objective Last 24 Hour Vital Signs Date Time Temp Pulse Resp B/P (MAP) Pulse Ox O2 Delivery O2 Flow Rate FiO2 01/31/20 12:00 Nasal Cannula 2.0 01/31/20 11:53 113 01/31/20 08:00 Nasal Cannula 2.0 01/31/20 08:00 107 01/31/20 07:48 98.1 109 22 128/67 (87) 100 01/31/20 04:00 Nasal Cannula 2.0 01/31/20 04:00 118 01/31/20 04:00 98.6 118 22 101/47 (65) 96 01/31/20 00:00 115 01/31/20 00:00 98.2 119 24 125/51 (75) 96 01/31/20 00:00 Nasal Cannula 2.0 01/30/20 20:58 Nasal Cannula 2.0 01/30/20 20:36 121 01/30/20 20:00 98.0 118 24 130/71 (90) 96 01/30/20 19:45 97.9 89 18 101/52 99 Nasal Cannula 2.0 01/30/20 17:10 97.9 89 18 101/52 99 Nasal Cannula 2.0 01/30/20 15:30 98.0 92 17 92/48 97 Nasal Cannula 2.0 01/30/20 14:15 95 18 90/53 100 Nasal Cannula 2.0 01/30/20 13:50 98 18 Room Air 01/30/20 13:50 98.1 98 18 86/47 95 Room Air 01/30/20 13:43 98.1 102 18 86/47 (60) 95 Room Air Intake and Output 01/30/20 01/31/20 19:00 07:00 Intake Total 0 ml 640 ml Output Total 1000 ml Balance 0 ml -360 ml Intake Oral 0 ml IV Total 600 ml Tube Feeding 40 ml Output Urine Total 1000 ml # Bowel Movements 3 Laboratory Tests 01/30/20 15:00: Arterial Blood pH 7.482H, Arterial Blood Partial Pressure CO2 34.5L, Arterial Blood Partial Pressure O2 96.7, Arterial Blood HCO3 25.2, Arterial Blood Oxygen Saturation 97.8, Arterial Blood Base Excess 1.8, Lakhwinder Test Positive 01/30/20 15:50: White Blood Count 31.5*H, Red Blood Count 2.85L, Hemoglobin 8.2L, Hematocrit 25.0L, Mean Corpuscular Volume 88, Mean Corpuscular Hemoglobin 28.7, Mean Corpuscular Hemoglobin Concent 32.7, Red Cell Distribution Width 15.6H, Platelet Count 153, Mean Platelet Volume 8.6, Neutrophils (%) (Auto) , Lymphocytes (%) (Auto) , Monocytes (%) (Auto) , Eosinophils (%) (Auto) , Basophils (%) (Auto) , Differential Total Cells Counted 100, Neutrophils % ( Manual) 65, Lymphocytes % (Manual) 7L, Monocytes % (Manual) 6, Eosinophils % ( Manual) 0, Basophils % (Manual) 1, Band Neutrophils 21H, Platelet Estimate Adequate, Platelet Morphology Normal, Hypochromasia 1+, Anisocytosis 1+, Prothrombin Time 11.9H, Prothromb Time International Ratio 1.1, Activated Partial Thromboplast Time 32, Sodium Level 137, Potassium Level 5.1, Chloride Level 103, Carbon Dioxide Level 26, Anion Gap 8, Blood Urea Nitrogen 49H, Creatinine 1.1, Estimat Glomerular Filtration Rate 57.7, Glucose Level 89, Lactic Acid Level 2.30H, Calcium Level 8.1L, Phosphorus Level 3.0, Magnesium Level 2.0, Total Bilirubin 0.2, Aspartate Amino Transf (AST/SGOT) 57H, Alanine Aminotransferase (ALT/SGPT) 38, Alkaline Phosphatase 135H, Troponin I 0.128H, Pro-B-Type Natriuretic Peptide > 82795H, Total Protein 5.6L, Albumin 1.4L, Globulin 4.2, Albumin/Globulin Ratio 0.3L 01/30/20 16:40: Urine Color Pale yellow, Urine Appearance Clear, Urine pH 6, Urine Specific [place] 1.010, Urine Protein 3+H, Urine Glucose (UA) Negative, Urine Ketones Negative, Urine Blood 4+H, Urine Nitrite Negative, Urine Bilirubin Negative, Urine Urobilinogen Normal, Urine Leukocyte Esterase 3+H, Urine RBC 0-2, Urine WBC 2-4, Urine Squamous Epithelial Cells Few, Urine Bacteria Few 01/30/20 19:30: Lactic Acid Level 3.20H 01/31/20 04:00: White Blood Count 34.5*H, Red Blood Count 2.74L, Hemoglobin 7.8L, Hematocrit 23.4L, Mean Corpuscular Volume 85, Mean Corpuscular Hemoglobin 28.4, Mean Corpuscular Hemoglobin Concent 33.2, Red Cell Distribution Width 13.7, Platelet Count 140L, Mean Platelet Volume 7.1, Neutrophils (%) (Auto) , Lymphocytes (%) ( Auto) , Monocytes (%) (Auto) , Eosinophils (%) (Auto) , Basophils (%) (Auto) , Differential Total Cells Counted 100, Neutrophils % (Manual) 64, Lymphocytes % ( Manual) 2L, Monocytes % (Manual) 6, Eosinophils % (Manual) 2, Basophils % ( Manual) 1, Promyelocytes % , Band Neutrophils 25H, Platelet Estimate DecreasedL , Platelet Morphology Normal, Hypochromasia 1+, Sodium Level 143, Potassium Level 3.6, Chloride Level 108H, Carbon Dioxide Level 23, Anion Gap 12, Blood Urea Nitrogen 41H, Creatinine 1.0, Estimat Glomerular Filtration Rate > 60, Glucose Level 58L, Lactic Acid Level 1.10, Calcium Level 8.3L Height (Feet): 5 Height (Inches): 2.00 Weight (Pounds): 115 General Appearance: alert, confused Neck: supple Cardiovascular: normal rate, regular rhythm Respiratory/Chest: lungs clear, normal breath sounds Abdomen: non tender, soft Carmine Major MD Jan 31, 2020 13:13
[2020-01-31 16:00] VITALS: BP 137/87
[2020-01-31] MEDS ORDERED: Cefepime 2gm/D5W 110ml IV SCH ×4 (17:00)
[2020-01-31 20:00] VITALS: BP 133/82
[2020-01-31] MEDS: Atorvastatin 20mg tab ORAL SCH (20:40)
[2020-01-31] MEDS: Vancomycin 750mg/NS 275ml IVPB SCH ×2 (20:40)
--- NOTE | 2020-01-31 21:04 | Consultation ---
History of Present Illness General Date patient seen: Jan 31, 2020 Reason for Hospitalization: lethargy Present Illness HPI 84-year-old female brought in by EMS from SNF with hypotension, she has past medical history of CVA, hemiplegia, DM, COPD, CKD, hyperlipidemia, hypothyroidism, GERD, unspecified CHF, S/p PPM Patient is nonverbal and therefore unable to obtain further history at this time. Information obtained from ED physician and chart review. Patient given fluid bolus in ED with improvement in hypotension. Lactate found to be elevated, also found to have minimal pyuria. CXR clear. Influenza swab negative. Given vanco and cefepime and referred for admission Unable to give much history Allergies: Coded Allergies: No Known Allergies (Unverified , 01/30/20) Medication History Scheduled Amlodipine Besylate* (Amlodipine Besylate*), 10 MG ORAL DAILY, (Reported) Atorvastatin Calcium* (Atorvastatin Calcium*), 40 MG GT BEDTIME, (Reported) Bisacodyl (Bisacodyl), 10 MG RC DAILY, (Reported) Clonidine Hcl* (Catapres*), 0.1 MG GT EVERY 6 HOURS, (Reported) Docusate Sodium* (Docusate Sodium*), 100 MG ORAL DAILY, (Reported) Enoxaparin* (Lovenox*), 300 MG SUBQ DAILY, (Reported) Famotidine* (Pepcid 20mg tablet*), 20 MG ORAL DAILY, (Reported) Levothyroxine Sodium* (Levothyroxine Sodium*), 25 MCG GT DAILY, (Reported) Multivitamin With Minerals (Multivitamins With Minerals*), 1 TAB GT DAILY, ( Reported) Scheduled PRN Acetaminophen (Tylenol), 650 MG GT Q6H PRN for Prn Pain/Headache/Temp > 101, ( Reported) Ipratropium [place] 0.5MG/2.5ML (Ipratropium [place] 0.5MG/2.5ML), 0.5 MG HHN Q6H PRN for Shortness of Breath, (Reported) Miscellaneous Medications Lactulose (Lactulose*), 20 ML GT, (Reported) Patient History Healthcare decision maker N Resuscitation status Full Code Advanced Directive on File Review of Systems Review of Symptoms unable Physical Exam Physical Exam General appearance: lethargic Head: Normocephalic, without obvious abnormality, atraumatic Eyes: conjunctivae/corneas clear. PERRL, EOM's intact. Fundi benign Throat: Lips, mucosa, and tongue normal. Teeth and gums normal Neck: supple, symmetrical, trachea midline, no adenopathy, thyroid: not enlarged, symmetric, no tenderness/mass/nodules, no carotid bruit and no JVD Lungs: clear to auscultation bilaterally Heart: regular rate and rhythm, S1, S2 normal, no murmur, click, rub or gallop Abdomen: soft, non-tender. Bowel sounds normal. No masses, no organomegaly Extremities: extremities normal, atraumatic, no cyanosis or edema Pulses: 2+ and symmetric Skin: Skin color, texture, turgor normal. No rashes or lesions Neurologic: withdraws all UEs, TP in LEs, lethargic cc 35 min Last 24 Hour Vital Signs Date Time Temp Pulse Resp B/P (MAP) Pulse Ox O2 Delivery O2 Flow Rate FiO2 01/31/20 20:00 Nasal Cannula 2.0 01/31/20 20:00 97.0 108 18 133/82 (99) 98 01/31/20 16:00 96.8 118 22 137/87 (104) 100 01/31/20 16:00 Nasal Cannula 2.0 01/31/20 15:08 110 01/31/20 12:00 Nasal Cannula 2.0 01/31/20 12:00 96.8 110 20 126/59 (81) 100 01/31/20 11:53 113 01/31/20 08:00 Nasal Cannula 2.0 01/31/20 08:00 107 01/31/20 07:48 98.1 109 22 128/67 (87) 100 01/31/20 04:00 Nasal Cannula 2.0 01/31/20 04:00 118 01/31/20 04:00 98.6 118 22 101/47 (65) 96 01/31/20 00:00 115 01/31/20 00:00 98.2 119 24 125/51 (75) 96 01/31/20 00:00 Nasal Cannula 2.0 Intake and Output 01/30/20 01/31/20 19:00 07:00 Intake Total 0 ml 640 ml Output Total 1000 ml Balance 0 ml -360 ml Intake Oral 0 ml IV Total 600 ml Tube Feeding 40 ml Output Urine Total 1000 ml # Bowel Movements 3 Laboratory Tests Test 01/31/20 04:00 White Blood Count 34.5 K/UL (4.8-10.8) *H Red Blood Count 2.74 M/UL (4.20-5.40) L Hemoglobin 7.8 G/DL (12.0-16.0) L Hematocrit 23.4 % (37.0-47.0) L Mean Corpuscular Volume 85 FL (80-99) Mean Corpuscular Hemoglobin 28.4 PG (27.0-31.0) Mean Corpuscular Hemoglobin Concent 33.2 G/DL (32.0-36.0) Red Cell Distribution Width 13.7 % (11.6-14.8) Platelet Count 140 K/UL (150-450) L Mean Platelet Volume 7.1 FL (6.5-10.1) Neutrophils (%) (Auto) % (45.0-75.0) Lymphocytes (%) (Auto) % (20.0-45.0) Monocytes (%) (Auto) % (1.0-10.0) Eosinophils (%) (Auto) % (0.0-3.0) Basophils (%) (Auto) % (0.0-2.0) Differential Total Cells Counted 100 Neutrophils % (Manual) 64 % (45-75) Lymphocytes % (Manual) 2 % (20-45) L Monocytes % (Manual) 6 % (1-10) Eosinophils % (Manual) 2 % (0-3) Basophils % (Manual) 1 % (0-2) Promyelocytes % % (0-0) Band Neutrophils 25 % (0-8) H Platelet Estimate Decreased L Platelet Morphology Normal Hypochromasia 1+ Sodium Level 143 MMOL/L (136-145) Potassium Level 3.6 MMOL/L (3.5-5.1) Chloride Level 108 MMOL/L (98-107) H Carbon Dioxide Level 23 MMOL/L (21-32) Anion Gap 12 mmol/L (5-15) Blood Urea Nitrogen 41 mg/dL (7-18) H Creatinine 1.0 MG/DL (0.55-1.30) Estimat Glomerular Filtration Rate > 60 mL/min (>60) Glucose Level 58 MG/DL (74-106) L Lactic Acid Level 1.10 mmol/L (0.4-2.0) Calcium Level 8.3 MG/DL (8.5-10.1) L Height (Feet): 5 Height (Inches): 2.00 Weight (Pounds): 115 Medications Current Medications Medications (Trade) Dose Ordered Sig/More[place] Route PRN Reason Start Time Stop Time Status Last Admin Dose Admin Acetaminophen (Tylenol) 650 mg Q4H PRN ORAL Mild Pain (Pain Scale 1-3) 01/30/20 19:00 02/29/20 18:59 Albuterol/ Ipratropium (Albuterol/ Ipratropium) 3 ml Q6H PRN HHN Shortness of Breath 01/30/20 19:00 02/04/20 18:59 Atorvastatin Calcium (Lipitor) 40 mg BEDTIME ORAL 01/30/20 21:00 04/29/20 20:59 01/31/20 20:40 Cefepime HCl 2 gm/ Dextrose 110 ml @ 220 mls/hr Q12H IV 01/31/20 17:00 02/07/20 16:59 01/31/20 16:21 Dextrose (Dextrose 50%) 25 ml Q30M PRN IV Hypoglycemia 01/30/20 19:00 04/29/20 18:59 Dextrose (Dextrose 50%) 50 ml Q30M PRN IV Hypoglycemia 01/30/20 19:00 04/29/20 18:59 Diphenhydramine HCl (Benadryl) 25 mg Q6H PRN ORAL Itching/Pruritis 01/30/20 19:00 02/29/20 18:59 Docusate Sodium (Colace) 100 mg EVERY 12 HOURS ORAL 01/30/20 21:00 02/29/20 20:59 Heparin Sodium (Porcine) (Heparin 5000 units/ml) 5,000 units EVERY 12 HOURS SUBQ 01/30/20 21:00 03/15/20 20:59 01/31/20 09:43 Levothyroxine Sodium (Synthroid) 25 mcg DAILY@0630 ORAL 01/31/20 06:30 03/01/20 06:29 01/31/20 06:07 Ondansetron HCl (Zofran) 4 mg Q6H PRN IVP Nausea & Vomiting 01/30/20 19:00 02/29/20 18:59 Vancomycin HCl (Vanco rx to dose) 1 ea DAILY PRN MISC Per rx protocol 01/30/20 19:00 02/29/20 18:59 Vancomycin HCl 750 mg/Sodium Chloride 275 ml @ 183.333 mls/hr Q24H IVPB 01/31/20 21:00 02/05/20 20:59 01/31/20 20:40 Assessment/Plan Problem List: (1) Septic shock ICD Codes: A41.9 - Sepsis, unspecified organism; R65.21 - Severe sepsis with septic shock SNOMED: 64767097 (2) Anemia ICD Codes: D64.9 - Anemia, unspecified SNOMED: 091282711 (3) Elevated troponin ICD Codes: R79.89 - Other specified abnormal findings of blood chemistry; R65.21 - Severe sepsis with septic shock SNOMED: 146485478, 955849798, 642856036 (4) Sepsis ICD Codes: A41.9 - Sepsis, unspecified organism SNOMED: 07919692 (5) Decubitus skin ulcer ICD Codes: L89.90 - Pressure ulcer of unspecified site, unspecified stage SNOMED: 721673196 Assessment/Plan: Acute encephalopathy in the context of sepsis Dementia, likely vascular Hx of strokes Monitor neuro exam Delirium precautions atb m, broad spectrum FU cultures asa daily MIPS Hospital declaration INPATIENT level of care is warranted for this patient because patient is a 89 year old with who presents with suspicion of . I have a high level of concern because . Patient is at high risk for . Plan of care/treatment include . Patient care is expected to be greater than 2 midnights. OBSERVATION level of care is warranted for this patient. Patient is a 89 year old with who presents with . Patient will be admitted for 1 midnight, but if additional night(s) is/are necessary, patient will be converted to inpatient status for the entire hospitalization Disposition: Once the patient is stable to leave the hospital, I anticipate the patient will likely be discharged to the following environment: Estimated discharge date: I spent 70 minutes on this patient's case, and minutes was dedicated to counseling and/or care coordination. MIPS ([employer]it-based Incentive Payment System) Applicable CPT: 23657, 56236 CHECK ALL THAT ARE MET: Measure #5 (CHF): All ages. Prescribe JOVON/ARB upon discharge for patients with left ventricular systolic dysfunction. If not, the reason is clearly documented in the medical chart. Measure #8 (CHF): All ages. Prescribe a beta олег upon discharge for patients with left ventricular systolic dysfunction. If not, the reason is clearly documented in the medical chart. Measure #47 Advance care plan or surrogate decision maker documented in the medical record. Measure #130 The provider has documented, updated, or reviewed the patients current medication list and has documented it in the patients note. Measure #374 (All): Send report to referring provider. Measure #407(Sepsis due to MSSA bacteremia): Age 18+ Patient treated with a beta-lactam antibiotic (Nafcillin, Oxacillin or Cefazolin) as definitive therapy. MEDICAL COMPLEXITY High complexity medical decision making (need 2/3 categories) Problem - need 4 points Acute/new problem with new plan for workup (4 points, 1 max) Acute/new problem without additional workup (3 points, 1 max) Unstable chronic problem actively being managed (2 point each, 2 max) Stable chronic problem actively being managed (1 point each, 2 max) Self-limited/transient process (constipation, muscle ache, etc) (1 point each , 2 max) Data - need 4 points Reviewed labs/imaging studies (1 points, 2 max) Independent review of imaging (EKG, xrays, etc) (2 points, 2 max) Discussed case with consult/other MD/RN (2 points, 2 max) High Risk - qualify if have one of the following: Severe exacerbation of acute problem, acute mental status change, IV narcotics , monitoring drug levels (vancomycin, INR, tacrolimus etc) Luis Nash MD Jan 31, 2020 21:04
--- NOTE | 2020-01-31 21:31 | Infectious Diseases Prog Note ---
Assessment/Plan Assessment/Plan Full consult dictated: A) 1) gram neg bacteremia, ? uti, ? other source, severe leukocytosis, sepsis 2) being ruled out for covid-19 - low clinical suspicion 3) pmn noted P) 1) meropenem and vancomycin 2) f/u labs, check cultures 3) consider CT abdomen and pelvis once covid-19 ruled out 4) thank you Subjective Allergies: Coded Allergies: No Known Allergies (Unverified , 01/30/20) Objective Vital Signs Last 24 Hour Vital Signs Date Time Temp Pulse Resp B/P (MAP) Pulse Ox O2 Delivery O2 Flow Rate FiO2 01/31/20 20:00 Nasal Cannula 2.0 01/31/20 20:00 97.0 108 18 133/82 (99) 98 01/31/20 19:05 108 01/31/20 16:00 96.8 118 22 137/87 (104) 100 01/31/20 16:00 Nasal Cannula 2.0 01/31/20 15:08 110 01/31/20 12:00 Nasal Cannula 2.0 01/31/20 12:00 96.8 110 20 126/59 (81) 100 01/31/20 11:53 113 01/31/20 08:00 Nasal Cannula 2.0 01/31/20 08:00 107 01/31/20 07:48 98.1 109 22 128/67 (87) 100 01/31/20 04:00 Nasal Cannula 2.0 01/31/20 04:00 118 01/31/20 04:00 98.6 118 22 101/47 (65) 96 01/31/20 00:00 115 01/31/20 00:00 98.2 119 24 125/51 (75) 96 01/31/20 00:00 Nasal Cannula 2.0 Height (Feet): 5 Height (Inches): 2.00 Weight (Pounds): 115 Microbiology Date/Time Source Procedure Growth Status 01/30/20 16:40 Blood Blood Culture - Preliminary Resulted 01/30/20 16:40 Blood Blood Culture - Preliminary Resulted 01/30/20 15:40 Nasal Nares - Final Complete 01/30/20 15:40 Nasal Nares - Final Complete Laboratory Tests Test 01/31/20 04:00 White Blood Count 34.5 K/UL (4.8-10.8) *H Red Blood Count 2.74 M/UL (4.20-5.40) L Hemoglobin 7.8 G/DL (12.0-16.0) L Hematocrit 23.4 % (37.0-47.0) L Mean Corpuscular Volume 85 FL (80-99) Mean Corpuscular Hemoglobin 28.4 PG (27.0-31.0) Mean Corpuscular Hemoglobin Concent 33.2 G/DL (32.0-36.0) Red Cell Distribution Width 13.7 % (11.6-14.8) Platelet Count 140 K/UL (150-450) L Mean Platelet Volume 7.1 FL (6.5-10.1) Neutrophils (%) (Auto) % (45.0-75.0) Lymphocytes (%) (Auto) % (20.0-45.0) Monocytes (%) (Auto) % (1.0-10.0) Eosinophils (%) (Auto) % (0.0-3.0) Basophils (%) (Auto) % (0.0-2.0) Differential Total Cells Counted 100 Neutrophils % (Manual) 64 % (45-75) Lymphocytes % (Manual) 2 % (20-45) L Monocytes % (Manual) 6 % (1-10) Eosinophils % (Manual) 2 % (0-3) Basophils % (Manual) 1 % (0-2) Promyelocytes % % (0-0) Band Neutrophils 25 % (0-8) H Platelet Estimate Decreased L Platelet Morphology Normal Hypochromasia 1+ Sodium Level 143 MMOL/L (136-145) Potassium Level 3.6 MMOL/L (3.5-5.1) Chloride Level 108 MMOL/L (98-107) H Carbon Dioxide Level 23 MMOL/L (21-32) Anion Gap 12 mmol/L (5-15) Blood Urea Nitrogen 41 mg/dL (7-18) H Creatinine 1.0 MG/DL (0.55-1.30) Estimat Glomerular Filtration Rate > 60 mL/min (>60) Glucose Level 58 MG/DL (74-106) L Lactic Acid Level 1.10 mmol/L (0.4-2.0) Calcium Level 8.3 MG/DL (8.5-10.1) L Current Medications Medications (Trade) Dose Ordered Sig/[place] Route PRN Reason Start Time Stop Time Status Last Admin Dose Admin Acetaminophen (Tylenol) 650 mg Q4H PRN ORAL Mild Pain (Pain Scale 1-3) 01/30/20 19:00 02/29/20 18:59 Albuterol/ Ipratropium (Albuterol/ Ipratropium) 3 ml Q6H PRN HHN Shortness of Breath 01/30/20 19:00 02/04/20 18:59 Atorvastatin Calcium (Lipitor) 40 mg BEDTIME ORAL 01/30/20 21:00 04/29/20 20:59 01/31/20 20:40 Cefepime HCl 2 gm/ Dextrose 110 ml @ 220 mls/hr Q12H IV 01/31/20 17:00 02/07/20 16:59 01/31/20 16:21 Dextrose (Dextrose 50%) 25 ml Q30M PRN IV Hypoglycemia 01/30/20 19:00 04/29/20 18:59 Dextrose (Dextrose 50%) 50 ml Q30M PRN IV Hypoglycemia 01/30/20 19:00 04/29/20 18:59 Diphenhydramine HCl (Benadryl) 25 mg Q6H PRN ORAL Itching/Pruritis 01/30/20 19:00 02/29/20 18:59 Docusate Sodium (Colace) 100 mg EVERY 12 HOURS ORAL 01/30/20 21:00 02/29/20 20:59 Heparin Sodium (Porcine) (Heparin 5000 units/ml) 5,000 units EVERY 12 HOURS SUBQ 01/30/20 21:00 03/15/20 20:59 01/31/20 09:43 Levothyroxine Sodium (Synthroid) 25 mcg DAILY@0630 ORAL 01/31/20 06:30 03/01/20 06:29 01/31/20 06:07 Ondansetron HCl (Zofran) 4 mg Q6H PRN IVP Nausea & Vomiting 01/30/20 19:00 02/29/20 18:59 Vancomycin HCl (Vanco rx to dose) 1 ea DAILY PRN MISC Per rx protocol 01/30/20 19:00 02/29/20 18:59 Vancomycin HCl 750 mg/Sodium Chloride 275 ml @ 183.333 mls/hr Q24H IVPB 01/31/20 21:00 02/05/20 20:59 01/31/20 20:40 Abiodun Jacobo MD Jan 31, 2020 21:31
[2020-02-01] VITALS: BP 128/69
[2020-02-01 04:00] VITALS: BP 126/74
[2020-02-01 05:10] LABS: HEMATOCRIT 26.8 % (37.0-47.0); HEMOGLOBIN 8.9 G/DL (12.0-16.0); MEAN CORPUSCULAR VOLUME 85 FL (80-99); PLATELET COUNT 144 K/UL (150-450); RED BLOOD COUNT 3.16 M/UL (4.20-5.40); RED CELL DISTRIBUTION WIDTH 14.1 % (11.6-14.8)
[2020-02-01 05:22] LABS: WHITE BLOOD COUNT 38.2 K/UL (4.8-10.8)
[2020-02-01 05:43] LABS: ALANINE AMINOTRANSFERASE 43 U/L (12-78); ALBUMIN 1.5 G/DL (3.4-5.0); ALBUMIN/GLOBULIN RATIO 0.3 (1.0-2.7); ALKALINE PHOSPHATASE 175 U/L (46-116); AMYLASE 18 U/L (25-115); ANION GAP 11 mmol/L (5-15); ASPARTATE AMINO TRANSFERASE 93 U/L (15-37); BILIRUBIN,TOTAL 0.3 MG/DL (0.2-1.0); BLOOD UREA NITROGEN 32 mg/dL (7-18); CARBON DIOXIDE 24 MMOL/L (21-32); CHLORIDE 113 MMOL/L (98-107); CREATININE 0.8 MG/DL (0.55-1.30); POTASSIUM 3.4 MMOL/L (3.5-5.1); SODIUM 148 MMOL/L (136-145)
[2020-02-01] MEDS: Levothyroxine 25mcg tab ORAL SCH (05:59)
[2020-02-01 07:56] VITALS: BP 120/64
[2020-02-01] MEDS: Docusate 100mg cap ORAL SCH ×2 (09:00→20:01)
[2020-02-01] MEDS: Heparin 5000 units/ml inj SUBQ SCH ×2 (09:14→20:02)
--- NOTE | 2020-02-01 09:45 | Cardiology Progress Note ---
Assessment/Plan Status: stable Assessment/Plan Assessment/Plan Assessment/Plan: CVA Non verbal DM COPD CKD CHF GERD Pacemaker Hypotension Sepsis -Monitor on telemetry -IV fluids for hypotension -Hold blood pressure medications -Hold diuresis for now - no signs of volume overload -Echocardiogram normal LV function, PA pressure mild 38 mmHg, no significant valvular disease -Continue to trend troponin/EKG -If patient develops dynamic ECG changes will start heparin, no signs of ACS at this time -Empiric IV abx for elevated WBC, unlikey COVID due to lack of CXR findings and lack of leukopenia Subjective Cardiovascular: Reports: no symptoms Respiratory: Reports: no symptoms Gastrointestinal/Abdominal: Reports: no symptoms Genitourinary: Reports: no symptoms Subjective No acute events, Patient AAOx1 no distress tolerating tube feeds, WBC remains elevated, tachycardic Objective Last 24 Hour Vital Signs Date Time Temp Pulse Resp B/P (MAP) Pulse Ox O2 Delivery O2 Flow Rate FiO2 02/01/20 08:00 Nasal Cannula 2.0 02/01/20 08:00 2.0 02/01/20 07:56 98.1 118 20 120/64 (82) 100 02/01/20 04:00 97.8 105 20 126/74 (91) 99 02/01/20 04:00 Nasal Cannula 2.0 02/01/20 04:00 2.0 02/01/20 03:39 121 02/01/20 00:00 120 02/01/20 00:00 2.0 02/01/20 00:00 Nasal Cannula 2.0 02/01/20 00:00 97.5 101 18 128/69 (88) 98 01/31/20 20:00 2.0 01/31/20 20:00 Nasal Cannula 2.0 01/31/20 20:00 97.0 108 18 133/82 (99) 98 01/31/20 19:20 97 Nasal Cannula 2.0 28 01/31/20 19:20 81 24 97 Nasal Cannula 2.0 28 01/31/20 19:05 108 01/31/20 16:00 96.8 118 22 137/87 (104) 100 01/31/20 16:00 Nasal Cannula 2.0 01/31/20 15:08 110 01/31/20 12:00 Nasal Cannula 2.0 01/31/20 12:00 96.8 110 20 126/59 (81) 100 01/31/20 11:53 113 General Appearance: no apparent distress, alert EENT: PERRL/EOMI, normal ENT inspection Neck: non-tender, normal alignment, supple, normal inspection, no JVD Rhythm: NSR Cardiovascular: normal peripheral pulses, normal rate, regular rhythm Respiratory/Chest: chest wall non-tender, lungs clear, normal breath sounds, no respiratory distress, no accessory muscle use Abdomen: normal bowel sounds, non tender, soft, no organomegaly, no mass Extremities: normal range of motion, non-tender, normal inspection, no swelling 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 normal, no motor/sensory deficits Intake and Output 01/31/20 02/01/20 19:00 07:00 Intake Total 410 ml 986.666 ml Output Total 1200 ml 875 ml Balance -790 ml 111.666 ml Free Water 50 ml 50 ml IV Total 466.666 ml Tube Feeding 360 ml 470 ml Output Urine Total 1200 ml 875 ml # Bowel Movements 1 Laboratory Tests Test 02/01/20 04:10 White Blood Count 38.2 K/UL (4.8-10.8) *H Red Blood Count 3.16 M/UL (4.20-5.40) L Hemoglobin 8.9 G/DL (12.0-16.0) L Hematocrit 26.8 % (37.0-47.0) L Mean Corpuscular Volume 85 FL (80-99) Mean Corpuscular Hemoglobin 28.2 PG (27.0-31.0) Mean Corpuscular Hemoglobin Concent 33.3 G/DL (32.0-36.0) Red Cell Distribution Width 14.1 % (11.6-14.8) Platelet Count 144 K/UL (150-450) L Mean Platelet Volume 7.3 FL (6.5-10.1) Neutrophils (%) (Auto) % (45.0-75.0) Lymphocytes (%) (Auto) % (20.0-45.0) Monocytes (%) (Auto) % (1.0-10.0) Eosinophils (%) (Auto) % (0.0-3.0) Basophils (%) (Auto) % (0.0-2.0) Differential Total Cells Counted 100 Neutrophils % (Manual) 85 % (45-75) H Lymphocytes % (Manual) 3 % (20-45) L Monocytes % (Manual) 2 % (1-10) Eosinophils % (Manual) 0 % (0-3) Basophils % (Manual) 0 % (0-2) Band Neutrophils 10 % (0-8) H Platelet Estimate Decreased L Platelet Morphology Normal Anisocytosis 1+ Erythrocyte Sedimentation Rate 4 MM/HR (0-30) Prothrombin Time 10.8 SEC (9.30-11.50) Prothromb Time International Ratio 1.0 (0.9-1.1) Activated Partial Thromboplast Time 30 SEC (23-33) Sodium Level 148 MMOL/L (136-145) H Potassium Level 3.4 MMOL/L (3.5-5.1) L Chloride Level 113 MMOL/L (98-107) H Carbon Dioxide Level 24 MMOL/L (21-32) Anion Gap 11 mmol/L (5-15) Blood Urea Nitrogen 32 mg/dL (7-18) H Creatinine 0.8 MG/DL (0.55-1.30) Estimat Glomerular Filtration Rate > 60 mL/min (>60) Glucose Level 134 MG/DL (74-106) H Lactic Acid Level 1.10 mmol/L (0.4-2.0) Calcium Level 9.0 MG/DL (8.5-10.1) Total Bilirubin 0.3 MG/DL (0.2-1.0) Aspartate Amino Transf (AST/SGOT) 93 U/L (15-37) H Alanine Aminotransferase (ALT/SGPT) 43 U/L (12-78) Alkaline Phosphatase 175 U/L (46-116) H C-Reactive Protein, Quantitative 27.4 mg/dL (0.00-0.90) H Total Protein 6.4 G/DL (6.4-8.2) Albumin 1.5 G/DL (3.4-5.0) L Globulin 4.9 g/dL Albumin/Globulin Ratio 0.3 (1.0-2.7) L Amylase Level 18 U/L (25-115) L Lipase 102 U/L (73-393) Microbiology Date/Time Source Procedure Growth Status 01/30/20 16:40 Blood Blood Culture - Preliminary Gram Negative Bacillus 1 Resulted 01/30/20 16:40 Blood Blood Culture - Preliminary Gram Negative Bacillus 1 Resulted 01/30/20 15:40 Nasal Nares - Final Complete 01/30/20 15:40 Nasal Nares - Final Complete Dennis Crain MD Feb 01, 2020 09:45
--- NOTE | 2020-02-01 10:23 | Neurology Progress Note ---
Interim History Interim History ROS Limited/Unobtainable: Yes Interim History remains lethargic, vitals better Objective Physical Exam Last Vital Signs Date Time Temp Pulse Resp B/P (MAP) Pulse Ox O2 Delivery O2 Flow Rate FiO2 02/01/20 08:00 Nasal Cannula 2.0 02/01/20 08:00 122 02/01/20 07:56 98.1 20 120/64 (82) 100 01/31/20 19:20 28 Laboratory Tests Test 02/01/20 04:10 White Blood Count 38.2 K/UL (4.8-10.8) *H Red Blood Count 3.16 M/UL (4.20-5.40) L Hemoglobin 8.9 G/DL (12.0-16.0) L Hematocrit 26.8 % (37.0-47.0) L Mean Corpuscular Volume 85 FL (80-99) Mean Corpuscular Hemoglobin 28.2 PG (27.0-31.0) Mean Corpuscular Hemoglobin Concent 33.3 G/DL (32.0-36.0) Red Cell Distribution Width 14.1 % (11.6-14.8) Platelet Count 144 K/UL (150-450) L Mean Platelet Volume 7.3 FL (6.5-10.1) Neutrophils (%) (Auto) % (45.0-75.0) Lymphocytes (%) (Auto) % (20.0-45.0) Monocytes (%) (Auto) % (1.0-10.0) Eosinophils (%) (Auto) % (0.0-3.0) Basophils (%) (Auto) % (0.0-2.0) Differential Total Cells Counted 100 Neutrophils % (Manual) 85 % (45-75) H Lymphocytes % (Manual) 3 % (20-45) L Monocytes % (Manual) 2 % (1-10) Eosinophils % (Manual) 0 % (0-3) Basophils % (Manual) 0 % (0-2) Band Neutrophils 10 % (0-8) H Platelet Estimate Decreased L Platelet Morphology Normal Anisocytosis 1+ Erythrocyte Sedimentation Rate 4 MM/HR (0-30) Prothrombin Time 10.8 SEC (9.30-11.50) Prothromb Time International Ratio 1.0 (0.9-1.1) Activated Partial Thromboplast Time 30 SEC (23-33) Sodium Level 148 MMOL/L (136-145) H Potassium Level 3.4 MMOL/L (3.5-5.1) L Chloride Level 113 MMOL/L (98-107) H Carbon Dioxide Level 24 MMOL/L (21-32) Anion Gap 11 mmol/L (5-15) Blood Urea Nitrogen 32 mg/dL (7-18) H Creatinine 0.8 MG/DL (0.55-1.30) Estimat Glomerular Filtration Rate > 60 mL/min (>60) Glucose Level 134 MG/DL (74-106) H Lactic Acid Level 1.10 mmol/L (0.4-2.0) Calcium Level 9.0 MG/DL (8.5-10.1) Total Bilirubin 0.3 MG/DL (0.2-1.0) Aspartate Amino Transf (AST/SGOT) 93 U/L (15-37) H Alanine Aminotransferase (ALT/SGPT) 43 U/L (12-78) Alkaline Phosphatase 175 U/L (46-116) H C-Reactive Protein, Quantitative 27.4 mg/dL (0.00-0.90) H Total Protein 6.4 G/DL (6.4-8.2) Albumin 1.5 G/DL (3.4-5.0) L Globulin 4.9 g/dL Albumin/Globulin Ratio 0.3 (1.0-2.7) L Amylase Level 18 U/L (25-115) L Lipase 102 U/L (73-393) Head: normocophalic, atraumatic Neck: no rigidity EENT: benign Neurologic Exam Sensory: other - cc 35 min Objective lethargic, minimal withdraw in all 4 Impression/Recommendations Problems: (1) Septic shock (2) Anemia (3) Elevated troponin (4) Sepsis (5) Decubitus skin ulcer Status: stable Diagnostic Impression Acute encephalopathy in the context of sepsis Dementia, likely vascular Hx of strokes Monitor neuro exam Delirium precautions atb m, broad spectrum FU cultures asa daily Luis Nash MD Feb 01, 2020 10:23
--- NOTE | 2020-02-01 11:06 | Diagnostic Imaging Report ---
Indication: Abdominal pain Technique: Supine view of the abdomen Comparison: None Findings: There is a gastrostomy. Bowel gas pattern is unremarkable. No masses or unusual calcifications. Biventricular pacemaker is noted in the lower chest Impression: No acute process
--- NOTE | 2020-02-01 11:07 | Diagnostic Imaging Report ---
Indication: Cough Technique: One view of the chest Comparison: 01/30/2020 Findings: Lungs and pleural spaces are clear. The heart size is normal. There is a right chest biventricular pacemaker Impression: No acute process
[2020-02-01 11:36] VITALS: BP 140/76
--- NOTE | 2020-02-01 13:42 | General Progress Note ---
Assessment/Plan Status: stable Assessment/Plan: 84 year old woman with history of CVA, hemiplegia, DM, COPD, CKD, hyperlipidemia , hypothyroidism, GERD, unspecified CHF, S/p PPM brought in from SNF with hypotension, found to be septic with leukocytosis and minimal pyuria #Sepsis #Gram negative bacteremia, unclear sournce #Hypotension #Elevated lactate, improved #Leukocytosis -continue inpatient level of care -cardiac monitoring -continue broad spectrum antibiotics, IV fluids -hold anti-hypertensives -follow up COVID 19 sent in ED -follow up final blood cultures -Droplet precautions for now -ID consult appreciated #HTN #HLD #Uncspecifed CHF #Elevated BNP #S/p PPM -hold BP meds as above -monitor closely for evidence of fluid overload -Cards eval appreciated #history of CVA #Likely underlying dementia #Possible acute metabolic encephalopathy due to sepsis -supportive care -monitor mentation -fall precautions, aspiration precautions -PT/OT/RN PACU -Frequent 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 Subjective Date patient seen: Feb 01, 2020 Time patient seen: 13:00 ROS Limited/Unobtainable: Yes Allergies: Coded Allergies: No Known Allergies (Unverified , 01/30/20) Subjective Follow up for sepsis, gram negative bacteremia. No acute events overnight. WBC continues in increase Objective Last 24 Hour Vital Signs Date Time Temp Pulse Resp B/P (MAP) Pulse Ox O2 Delivery O2 Flow Rate FiO2 02/01/20 12:00 2.0 02/01/20 12:00 Nasal Cannula 2.0 02/01/20 11:36 97.7 109 20 140/76 (97) 100 02/01/20 08:00 Nasal Cannula 2.0 02/01/20 08:00 2.0 02/01/20 08:00 122 02/01/20 07:56 98.1 118 20 120/64 (82) 100 02/01/20 04:00 97.8 105 20 126/74 (91) 99 02/01/20 04:00 Nasal Cannula 2.0 02/01/20 04:00 2.0 02/01/20 03:39 121 02/01/20 00:00 120 3/20/20 00:00 2.0 02/01/20 00:00 Nasal Cannula 2.0 02/01/20 00:00 97.5 101 18 128/69 (88) 98 01/31/20 20:00 2.0 01/31/20 20:00 Nasal Cannula 2.0 01/31/20 20:00 97.0 108 18 133/82 (99) 98 01/31/20 19:20 97 Nasal Cannula 2.0 28 01/31/20 19:20 81 24 97 Nasal Cannula 2.0 28 01/31/20 19:05 108 01/31/20 16:00 96.8 118 22 137/87 (104) 100 01/31/20 16:00 Nasal Cannula 2.0 01/31/20 15:08 110 Intake and Output 01/31/20 02/01/20 19:00 07:00 Intake Total 410 ml 986.666 ml Output Total 1200 ml 875 ml Balance -790 ml 111.666 ml Free Water 50 ml 50 ml IV Total 466.666 ml Tube Feeding 360 ml 470 ml Output Urine Total 1200 ml 875 ml # Bowel Movements 1 Laboratory Tests 02/01/20 04:10: White Blood Count 38.2*H, Red Blood Count 3.16L, Hemoglobin 8.9L, Hematocrit 26.8L, Mean Corpuscular Volume 85, Mean Corpuscular Hemoglobin 28.2, Mean Corpuscular Hemoglobin Concent 33.3, Red Cell Distribution Width 14.1, Platelet Count 144L, Mean Platelet Volume 7.3, Neutrophils (%) (Auto) , Lymphocytes (%) ( Auto) , Monocytes (%) (Auto) , Eosinophils (%) (Auto) , Basophils (%) (Auto) , Differential Total Cells Counted 100, Neutrophils % (Manual) 85H, Lymphocytes % (Manual) 3L, Monocytes % (Manual) 2, Eosinophils % (Manual) 0, Basophils % ( Manual) 0, Band Neutrophils 10H, Platelet Estimate DecreasedL, Platelet Morphology Normal, Anisocytosis 1+, Erythrocyte Sedimentation Rate 4, Prothrombin Time 10.8, Prothromb Time International Ratio 1.0, Activated Partial Thromboplast Time 30, Sodium Level 148H, Potassium Level 3.4L, Chloride Level 113H, Carbon Dioxide Level 24, Anion Gap 11, Blood Urea Nitrogen 32H, Creatinine 0.8, Estimat Glomerular Filtration Rate > 60, Glucose Level 134H, Lactic Acid Level 1.10, Calcium Level 9.0, Total Bilirubin 0.3, Aspartate Amino Transf (AST/SGOT) 93H, Alanine Aminotransferase (ALT/SGPT) 43, Alkaline Phosphatase 175H, C-Reactive Protein, Quantitative 27.4H, Total Protein 6.4, Albumin 1.5L, Globulin 4.9, Albumin/Globulin Ratio 0.3L, Amylase Level 18L, Lipase 102 Height (Feet): 5 Height (Inches): 2.00 Weight (Pounds): 115 General Appearance: alert, confused Neck: normal alignment, supple Respiratory/Chest: lungs clear, normal breath sounds, no respiratory distress Abdomen: non tender, soft Carmine Major MD Feb 01, 2020 13:42
--- NOTE | 2020-02-01 15:18 | Surgery Progress Note ---
Surgery Progress Note Subjective Additional Comments no acute events exam stable labs noted Objective Last 24 Hour Vital Signs Date Time Temp Pulse Resp B/P (MAP) Pulse Ox O2 Delivery O2 Flow Rate FiO2 02/01/20 12:00 2.0 02/01/20 12:00 Nasal Cannula 2.0 02/01/20 12:00 117 02/01/20 11:36 97.7 109 20 140/76 (97) 100 02/01/20 08:00 Nasal Cannula 2.0 02/01/20 08:00 2.0 02/01/20 08:00 122 02/01/20 07:56 98.1 118 20 120/64 (82) 100 02/01/20 04:00 97.8 105 20 126/74 (91) 99 02/01/20 04:00 Nasal Cannula 2.0 02/01/20 04:00 2.0 02/01/20 03:39 121 02/01/20 00:00 120 02/01/20 00:00 2.0 02/01/20 00:00 Nasal Cannula 2.0 02/01/20 00:00 97.5 101 18 128/69 (88) 98 01/31/20 20:00 2.0 01/31/20 20:00 Nasal Cannula 2.0 01/31/20 20:00 97.0 108 18 133/82 (99) 98 01/31/20 19:20 97 Nasal Cannula 2.0 28 01/31/20 19:20 81 24 97 Nasal Cannula 2.0 28 01/31/20 19:05 108 01/31/20 16:00 96.8 118 22 137/87 (104) 100 01/31/20 16:00 Nasal Cannula 2.0 I&O Intake and Output 01/31/20 02/01/20 19:00 07:00 Intake Total 410 ml 1046.666 ml Output Total 1200 ml 875 ml Balance -790 ml 171.666 ml Free Water 50 ml 50 ml IV Total 466.666 ml Tube Feeding 360 ml 530 ml Output Urine Total 1200 ml 875 ml # Bowel Movements 1 Dressing: other Wound: other Drains: other Cardiovascular: RSR Respiratory: decreased breath sounds Abdomen: soft, non-tender, present bowel sounds Extremities: no cyanosis Laboratory Tests Test 02/01/20 04:10 White Blood Count 38.2 K/UL (4.8-10.8) *H Red Blood Count 3.16 M/UL (4.20-5.40) L Hemoglobin 8.9 G/DL (12.0-16.0) L Hematocrit 26.8 % (37.0-47.0) L Mean Corpuscular Volume 85 FL (80-99) Mean Corpuscular Hemoglobin 28.2 PG (27.0-31.0) Mean Corpuscular Hemoglobin Concent 33.3 G/DL (32.0-36.0) Red Cell Distribution Width 14.1 % (11.6-14.8) Platelet Count 144 K/UL (150-450) L Mean Platelet Volume 7.3 FL (6.5-10.1) Neutrophils (%) (Auto) % (45.0-75.0) Lymphocytes (%) (Auto) % (20.0-45.0) Monocytes (%) (Auto) % (1.0-10.0) Eosinophils (%) (Auto) % (0.0-3.0) Basophils (%) (Auto) % (0.0-2.0) Differential Total Cells Counted 100 Neutrophils % (Manual) 85 % (45-75) H Lymphocytes % (Manual) 3 % (20-45) L Monocytes % (Manual) 2 % (1-10) Eosinophils % (Manual) 0 % (0-3) Basophils % (Manual) 0 % (0-2) Band Neutrophils 10 % (0-8) H Platelet Estimate Decreased L Platelet Morphology Normal Anisocytosis 1+ Erythrocyte Sedimentation Rate 4 MM/HR (0-30) Prothrombin Time 10.8 SEC (9.30-11.50) Prothromb Time International Ratio 1.0 (0.9-1.1) Activated Partial Thromboplast Time 30 SEC (23-33) Sodium Level 148 MMOL/L (136-145) H Potassium Level 3.4 MMOL/L (3.5-5.1) L Chloride Level 113 MMOL/L (98-107) H Carbon Dioxide Level 24 MMOL/L (21-32) Anion Gap 11 mmol/L (5-15) Blood Urea Nitrogen 32 mg/dL (7-18) H Creatinine 0.8 MG/DL (0.55-1.30) Estimat Glomerular Filtration Rate > 60 mL/min (>60) Glucose Level 134 MG/DL (74-106) H Lactic Acid Level 1.10 mmol/L (0.4-2.0) Calcium Level 9.0 MG/DL (8.5-10.1) Total Bilirubin 0.3 MG/DL (0.2-1.0) Aspartate Amino Transf (AST/SGOT) 93 U/L (15-37) H Alanine Aminotransferase (ALT/SGPT) 43 U/L (12-78) Alkaline Phosphatase 175 U/L (46-116) H C-Reactive Protein, Quantitative 27.4 mg/dL (0.00-0.90) H Total Protein 6.4 G/DL (6.4-8.2) Albumin 1.5 G/DL (3.4-5.0) L Globulin 4.9 g/dL Albumin/Globulin Ratio 0.3 (1.0-2.7) L Amylase Level 18 U/L (25-115) L Lipase 102 U/L (73-393) Plan Problems: (1) Septic shock Assessment & Plan: Patient presented to emergency department with sepsis hypotension tachycardia lactic acidosis leukocytosis. On IV antibiotics Labs improving IV hydration Continue tube feeds advance goal as tolerated Abdominal exam does elicit patient to retract a bit but she is not tender peritonitis or without rebound or significant guarding. Likely startle effect rather than intra-abdominal pathology will follow with serial exams continue with current care plan thank you for let me participate in patient's care (2) Decubitus skin ulcer Assessment & Plan: 84-year-old female presented on admission with multiple decubitus skin ulcers and skin concerns. Patient identified to have a unstageable sacral lower back decubitus ulcer, periwound maceration, area of necrotic eschar soft, no drainage, no abscess, no foul odor Pt presented on admission with contractures, Multiple Pressure injuries.open DTPI sacrum.Wound is open at sacrococcygeal area(40%), with soft necrotic base ( L)5.5cm x (W)4.5cm. Surrounding base of wound is maroon and indurated. Total area of sacral DTPI measures(L) 12.5cm x (W)15cm. Non-blanching erythema periwound.In addition several small partial thickness wounds noted along Perineum.` Areas of hyperpigmentation noted to L and R trochanteric. Full thickness wound R knee.(L)1.1cm x (W)1.5cm.1 Base of wound 90% pink granulation,10% slough noted in center of wound. Borders are macerated.small amt serous exudate. No odor noted. No erythema or fluctuance noted periwound. Non-blanching erythema with fluctuance R heel. Unstageable pressure injury R hallux. Base of wound is 100% soft necrosis. Edges adherent and dry.No odor or exudate noted.Surrounding darker skin tone without erythema or fluctuance(L)2.6cm x (W)3cm. DTPI R Ankle(L)0.9cm x (W)1.6cm. Base of wound is fluctuant, maroon with marginal erythema. Periwound without erythema or fluctuance. Unstageable pressure injury distal/lateral R foot. Base of wound 100% soft necrosis with surrounding non-blanching erythema with fluctuance.(L)2cm x (W) 0.9cm. Stable dry eschar medial/lateral R foot (L)0.4cm x (W)0.8cm. Stable dry eschar lateral L heel.(L)1.9cm x (W)2.2cm. No erythema or fluctuance periwound. Unstable pressure injury medial/lateral L foot. Base of wound is 100% necrotic but dry.(L)0.7cm x (W)0.8cm. Unstageable pressure injury distal/lateral L foot. Base of wound is 100% necrotic but dry. (L)1.2cm x (W)1.6cm.non-blanching erythema without fluctuance periwound. Non-blanching erythema without fluctuance lateral L 5th metatarsal.(L)1.5cm x (W )0.5cm. Open DTPI L Hallux.Base of wound has mixed necrosis and slough with surrounding base of wound maroon with fluctuance. Non-blanching erythema without elevation in skin temp,or fluctuance periwound. Tx.plan: Cleanse Sacral wound with Saline. Apply TheraHoney. Apply Moisture Barrier Paste Periwound. Cover with Optifoam drsg. Change Daily and prn. Swab R nee with Betadine. Cover with Optifoam drsg every 3 days and prn. Swab wounds R foot with Betadine. Cover each wound with Optifoam drsg. Change every 3 days and prn. Swab wounds L foot with Betadine. Cover each wound with Optifoam drsg. Change every 3 days and prn. Reposition at least every 2hours or as tolerated. Place pillow between knees. Off-load heels with Pillow. APM/ARIEL Mattress. Luther Mercedes Feb 01, 2020 15:18
[2020-02-01 16:00] VITALS: BP 148/72
[2020-02-01 20:00] VITALS: BP 146/64
[2020-02-01] MEDS: Atorvastatin 20mg tab ORAL SCH (20:01)
[2020-02-01] MEDS: Vancomycin 750mg/NS 275ml IVPB SCH ×2 (20:01)
[2020-02-02] VITALS: BP 136/73
[2020-02-02 04:00] VITALS: BP 134/74
[2020-02-02 05:11] LABS: HEMATOCRIT 29.8 % (37.0-47.0); HEMOGLOBIN 10.1 G/DL (12.0-16.0); MEAN CORPUSCULAR VOLUME 85 FL (80-99); PLATELET COUNT 165 K/UL (150-450); RED CELL DISTRIBUTION WIDTH 14.3 % (11.6-14.8)
[2020-02-02 05:27] LABS: ANION GAP 9 mmol/L (5-15); BLOOD UREA NITROGEN 31 mg/dL (7-18); CALCIUM 8.9 MG/DL (8.5-10.1); CARBON DIOXIDE 29 MMOL/L (21-32); CHLORIDE 114 MMOL/L (98-107); CREATININE 0.7 MG/DL (0.55-1.30); POTASSIUM 3.5 MMOL/L (3.5-5.1); SODIUM 152 MMOL/L (136-145)
[2020-02-02 05:44] LABS: WHITE BLOOD COUNT 29.6 K/UL (4.8-10.8)
[2020-02-02] MEDS: Levothyroxine 25mcg tab ORAL SCH (05:59)
[2020-02-02 08:00] VITALS: BP 120/66
[2020-02-02] MEDS: Heparin 5000 units/ml inj SUBQ SCH ×2 (08:19→21:23)
[2020-02-02] MEDS: Docusate 100mg cap ORAL SCH (08:20)
[2020-02-02] MEDS ORDERED: Tubing IV Secondary IV ONE (10:12)
[2020-02-02] MEDS ORDERED: NS 275ml ONE ×2 (10:12→20:45)
[2020-02-02 12:00] VITALS: BP 137/68
[2020-02-02] MEDS ORDERED: Docusate 100mg cap ORAL PRN (12:45)
--- NOTE | 2020-02-02 13:16 | General Progress Note ---
Assessment/Plan Status: stable Assessment/Plan: 84 year old woman with history of CVA, hemiplegia, DM, COPD, CKD, hyperlipidemia , hypothyroidism, GERD, unspecified CHF, S/p PPM brought in from SNF with hypotension, found to be septic with leukocytosis and minimal pyuria #Sepsis #Gram negative bacteremia, unclear source #Hypotension - resolved #Elevated lactate, improved #Leukocytosis - downtrending -continue inpatient level of care -cardiac monitoring -continue broad spectrum antibiotics, IV fluids -hold anti-hypertensives -follow up COVID 19 sent in ED, pending -BCx + citrobacter -Droplet precautions for now -ID following - vanc/meropenum #Hypernatremia -Na 152 on 02/01 -start FWF 100 cc q6h -cont. 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 Subjective Allergies: Coded Allergies: No Known Allergies (Unverified , 01/30/20) Subjective Follow up for sepsis, gram negative bacteremia. No acute events overnight. WBC remains elevated, downtrending. Patient minimally verbal, denies any pain at this time. Per nurse, patient tolerating tube feeds. Objective Last 24 Hour Vital Signs Date Time Temp Pulse Resp B/P (MAP) Pulse Ox O2 Delivery O2 Flow Rate FiO2 02/02/20 12:00 2.0 02/02/20 12:00 Nasal Cannula 2.0 02/02/20 12:00 98.2 123 18 137/68 (91) 100 02/02/20 12:00 116 02/02/20 08:00 120 02/02/20 08:00 2.0 02/02/20 08:00 Nasal Cannula 2.0 02/02/20 08:00 98.1 119 18 120/66 (84) 99 02/02/20 04:00 Nasal Cannula 2.0 02/02/20 04:00 2.0 02/02/20 04:00 98.1 112 18 134/74 (94) 99 02/02/20 03:51 117 02/02/20 00:00 98.0 105 20 136/73 (94) 100 02/02/20 00:00 2.0 02/02/20 00:00 Nasal Cannula 2.0 02/01/20 23:36 110 02/01/20 20:00 129 02/01/20 20:00 97.9 108 20 146/64 (91) 100 02/01/20 20:00 Nasal Cannula 2.0 02/01/20 20:00 2.0 02/01/20 19:04 85 22 96 Nasal Cannula 2.0 28 02/01/20 19:04 96 Nasal Cannula 2.0 28 02/01/20 16:00 2.0 02/01/20 16:00 Nasal Cannula 2.0 02/01/20 16:00 123 02/01/20 16:00 97.7 110 20 148/72 (97) 100 Intake and Output 02/01/20 02/02/20 19:00 07:00 Intake Total 710 ml 1116.666 ml Output Total 750 ml 700 ml Balance -40 ml 416.666 ml Free Water 50 ml 50 ml IV Total 466.666 ml Tube Feeding 660 ml 600 ml Output Urine Total 750 ml 700 ml # Bowel Movements 3 4 Laboratory Tests 02/02/20 04:00: White Blood Count 29.6*H, Red Blood Count 3.50L, Hemoglobin 10.1L, Hematocrit 29.8L, Mean Corpuscular Volume 85, Mean Corpuscular Hemoglobin 28.8, Mean Corpuscular Hemoglobin Concent 33.8, Red Cell Distribution Width 14.3, Platelet Count 165, Mean Platelet Volume 7.1, Neutrophils (%) (Auto) , Lymphocytes (%) ( Auto) , Monocytes (%) (Auto) , Eosinophils (%) (Auto) , Basophils (%) (Auto) , Differential Total Cells Counted 100, Neutrophils % (Manual) 88H, Lymphocytes % (Manual) 4L, Monocytes % (Manual) 2, Eosinophils % (Manual) 0, Basophils % ( Manual) 0, Band Neutrophils 6, Platelet Estimate Adequate, Platelet Morphology Normal, Hypochromasia 1+, Sodium Level 152H, Potassium Level 3.5, Chloride Level 114H, Carbon Dioxide Level 29, Anion Gap 9, Blood Urea Nitrogen 31H, Creatinine 0.7, Estimat Glomerular Filtration Rate > 60, Glucose Level 123H, Calcium Level 8.9 Height (Feet): 5 Height (Inches): 2.00 Weight (Pounds): 115 Objective General Appearance: NAD, otherwise awake, alert, confused Neck: normal alignment, supple CV: RRR Respiratory: lungs clear, normal breath sounds, no respiratory distress Abdomen: non tender, soft, +PEG tube, c/d/i Ext: Contracted bilaterally, multiple abrasions wrapped in bandages C/D/I Lorna Uribe M.D. Feb 02, 2020 13:16
[2020-02-02 15:56] VITALS: BP 122/58
--- NOTE | 2020-02-02 17:47 | Neurology Progress Note ---
Interim History Interim History ROS Limited/Unobtainable: Yes Interim History Poor response, remains high NA Objective Physical Exam Last Vital Signs Date Time Temp Pulse Resp B/P (MAP) Pulse Ox O2 Delivery O2 Flow Rate FiO2 02/02/20 16:00 113 02/02/20 16:00 2.0 02/02/20 15:59 Nasal Cannula 02/02/20 15:56 99.5 18 122/58 (79) 100 02/01/20 19:04 28 Laboratory Tests Test 02/02/20 04:00 White Blood Count 29.6 K/UL (4.8-10.8) *H Red Blood Count 3.50 M/UL (4.20-5.40) L Hemoglobin 10.1 G/DL (12.0-16.0) L Hematocrit 29.8 % (37.0-47.0) L Mean Corpuscular Volume 85 FL (80-99) Mean Corpuscular Hemoglobin 28.8 PG (27.0-31.0) Mean Corpuscular Hemoglobin Concent 33.8 G/DL (32.0-36.0) Red Cell Distribution Width 14.3 % (11.6-14.8) Platelet Count 165 K/UL (150-450) Mean Platelet Volume 7.1 FL (6.5-10.1) Neutrophils (%) (Auto) % (45.0-75.0) Lymphocytes (%) (Auto) % (20.0-45.0) Monocytes (%) (Auto) % (1.0-10.0) Eosinophils (%) (Auto) % (0.0-3.0) Basophils (%) (Auto) % (0.0-2.0) Differential Total Cells Counted 100 Neutrophils % (Manual) 88 % (45-75) H Lymphocytes % (Manual) 4 % (20-45) L Monocytes % (Manual) 2 % (1-10) Eosinophils % (Manual) 0 % (0-3) Basophils % (Manual) 0 % (0-2) Band Neutrophils 6 % (0-8) Platelet Estimate Adequate Platelet Morphology Normal Hypochromasia 1+ Sodium Level 152 MMOL/L (136-145) H Potassium Level 3.5 MMOL/L (3.5-5.1) Chloride Level 114 MMOL/L (98-107) H Carbon Dioxide Level 29 MMOL/L (21-32) Anion Gap 9 mmol/L (5-15) Blood Urea Nitrogen 31 mg/dL (7-18) H Creatinine 0.7 MG/DL (0.55-1.30) Estimat Glomerular Filtration Rate > 60 mL/min (>60) Glucose Level 123 MG/DL (74-106) H Calcium Level 8.9 MG/DL (8.5-10.1) Head: normocophalic, atraumatic Neck: no rigidity EENT: benign Neurologic Exam Sensory: other - cc 35 min Objective lethargic, minimal withdraw in all 4 cc 35 min Impression/Recommendations Problems: (1) Septic shock (2) Anemia (3) Elevated troponin (4) Sepsis (5) Decubitus skin ulcer Status: stable Diagnostic Impression Acute encephalopathy in the context of sepsis Dementia, likely vascular Hx of strokes Monitor neuro exam Delirium precautions atb broad spectrum asa daily Luis Nash MD Feb 02, 2020 17:47
--- NOTE | 2020-02-02 18:49 | Infectious Diseases Prog Note ---
Assessment/Plan Assessment/Plan A) 1) citrobacter bacteremia, ? uti, ? other source, severe leukocytosis, sepsis 2) being ruled out for covid-19 - low clinical suspicion 3) dm, hyperlipidemia, ? htn, hypothyroidism, cva, anemia, hemiplegia, ckd, gerd , copd, chf, ppm 4) allergies - nkda, fh-nc, sh-negative, mar noted, notes and records noted 5) d/w RN P) 1) change to zosyn 2) await covid-19 testing 3) consider CT abdomen and pelvis once covid-19 ruled out - rule other source of citrobacter bacteremia 4) monitor labs 5) will f/u Subjective Constitutional: Denies: fever HEENT: Denies: congestion Respiratory: Denies: shortness of breath Cardiovascular: Denies: chest pain Gastrointestinal/Abdominal: Denies: nausea, vomiting, diarrhea Genitourinary: Reports: other - + john Neurologic: Denies: headache Psychiatric: Denies: depression Skin: Denies: rash Hematologic: Denies: bleeding Musculoskeletal: Denies: pain Allergies: Coded Allergies: No Known Allergies (Unverified , 01/30/20) Objective Vital Signs Last 24 Hour Vital Signs Date Time Temp Pulse Resp B/P (MAP) Pulse Ox O2 Delivery O2 Flow Rate FiO2 02/02/20 16:00 113 02/02/20 16:00 2.0 02/02/20 15:59 Nasal Cannula 2.0 02/02/20 15:56 99.5 126 18 122/58 (79) 100 02/02/20 12:00 2.0 02/02/20 12:00 Nasal Cannula 2.0 02/02/20 12:00 98.2 123 18 137/68 (91) 100 02/02/20 12:00 116 02/02/20 08:00 120 02/02/20 08:00 2.0 02/02/20 08:00 Nasal Cannula 2.0 02/02/20 08:00 98.1 119 18 120/66 (84) 99 02/02/20 04:00 Nasal Cannula 2.0 02/02/20 04:00 2.0 02/02/20 04:00 98.1 112 18 134/74 (94) 99 02/02/20 03:51 117 02/02/20 00:00 98.0 105 20 136/73 (94) 100 02/02/20 00:00 2.0 02/02/20 00:00 Nasal Cannula 2.0 02/01/20 23:36 110 02/01/20 20:00 129 02/01/20 20:00 97.9 108 20 146/64 (91) 100 02/01/20 20:00 Nasal Cannula 2.0 02/01/20 20:00 2.0 02/01/20 19:04 85 22 96 Nasal Cannula 2.0 28 02/01/20 19:04 96 Nasal Cannula 2.0 28 Height (Feet): 5 Height (Inches): 2.00 Weight (Pounds): 115 General Appearance: no acute distress HEENT: normocephalic, atraumatic, anicteric, mucous membranes moist Respiratory/Chest: lungs clear, normal breath sounds, no respiratory distress, no accessory muscle use Cardiovascular: normal rate, regular rhythm, no gallop/murmur, no JVD Abdomen: normal bowel sounds, soft, non tender, no organomegaly Genitourinary: other - + john - urine slt cloudy Extremities: no cyanosis Skin: no rash Neurologic/Psychiatric: religious healer II-XII grossly normal, alert, responsive, other - weak but reponsive Lymphatic: no neck adenopathy Musculoskeletal: no effusion Objective Chest x-ray - 02/01/20 - Procedure: XRAY Chest 1v Indication: Cough Technique: One view of the chest Comparison: 01/30/2020 Findings: Lungs and pleural spaces are clear. The heart size is normal. There is a right chest biventricular pacemaker Impression: No acute process Microbiology Date/Time Source Procedure Growth Status 01/30/20 16:40 Blood Blood Culture - Final Citrobacter Koseri Complete 01/30/20 15:45 Nasal Nares MRSA Culture - Final NO METHICILLIN RESISTANT STAPH AUREUS... Complete 01/30/20 15:45 Rectum VRE Culture - Final NO VANCOMYCIN RESISTANT ENTEROCOCCUS ... Complete Laboratory Tests Test 02/02/20 04:00 White Blood Count 29.6 K/UL (4.8-10.8) *H Red Blood Count 3.50 M/UL (4.20-5.40) L Hemoglobin 10.1 G/DL (12.0-16.0) L Hematocrit 29.8 % (37.0-47.0) L Mean Corpuscular Volume 85 FL (80-99) Mean Corpuscular Hemoglobin 28.8 PG (27.0-31.0) Mean Corpuscular Hemoglobin Concent 33.8 G/DL (32.0-36.0) Red Cell Distribution Width 14.3 % (11.6-14.8) Platelet Count 165 K/UL (150-450) Mean Platelet Volume 7.1 FL (6.5-10.1) Neutrophils (%) (Auto) % (45.0-75.0) Lymphocytes (%) (Auto) % (20.0-45.0) Monocytes (%) (Auto) % (1.0-10.0) Eosinophils (%) (Auto) % (0.0-3.0) Basophils (%) (Auto) % (0.0-2.0) Differential Total Cells Counted 100 Neutrophils % (Manual) 88 % (45-75) H Lymphocytes % (Manual) 4 % (20-45) L Monocytes % (Manual) 2 % (1-10) Eosinophils % (Manual) 0 % (0-3) Basophils % (Manual) 0 % (0-2) Band Neutrophils 6 % (0-8) Platelet Estimate Adequate Platelet Morphology Normal Hypochromasia 1+ Sodium Level 152 MMOL/L (136-145) H Potassium Level 3.5 MMOL/L (3.5-5.1) Chloride Level 114 MMOL/L (98-107) H Carbon Dioxide Level 29 MMOL/L (21-32) Anion Gap 9 mmol/L (5-15) Blood Urea Nitrogen 31 mg/dL (7-18) H Creatinine 0.7 MG/DL (0.55-1.30) Estimat Glomerular Filtration Rate > 60 mL/min (>60) Glucose Level 123 MG/DL (74-106) H Calcium Level 8.9 MG/DL (8.5-10.1) Current Medications Medications (Trade) Dose Ordered Sig/Moreno Route PRN Reason Start Time Stop Time Status Last Admin Dose Admin Acetaminophen (Tylenol) 650 mg Q4H PRN ORAL Mild Pain (Pain Scale 1-3) 01/30/20 19:00 02/29/20 18:59 Albuterol/ Ipratropium (Albuterol/ Ipratropium) 3 ml Q6H PRN HHN Shortness of Breath 3/18/20 19:00 02/04/20 18:59 Atorvastatin Calcium (Lipitor) 40 mg BEDTIME ORAL 01/30/20 21:00 04/29/20 20:59 02/01/20 20:01 Dextrose (Dextrose 50%) 25 ml Q30M PRN IV Hypoglycemia 01/30/20 19:00 04/29/20 18:59 Dextrose (Dextrose 50%) 50 ml Q30M PRN IV Hypoglycemia 01/30/20 19:00 04/29/20 18:59 Diphenhydramine HCl (Benadryl) 25 mg Q6H PRN ORAL Itching/Pruritis 01/30/20 19:00 02/29/20 18:59 Docusate Sodium (Colace) 100 mg Q12H PRN ORAL Constipation 02/02/20 12:45 03/03/20 12:44 Heparin Sodium (Porcine) (Heparin 5000 units/ml) 5,000 units EVERY 12 HOURS SUBQ 01/30/20 21:00 03/15/20 20:59 02/02/20 08:19 Levothyroxine Sodium (Synthroid) 25 mcg DAILY@0630 ORAL 01/31/20 06:30 03/01/20 06:29 02/02/20 05:59 Meropenem 1 gm/ Sodium Chloride 100 ml @ 200 mls/hr Q12H IVPB 01/31/20 22:00 02/05/20 21:59 02/02/20 10:47 Ondansetron HCl (Zofran) 4 mg Q6H PRN IVP Nausea & Vomiting 01/30/20 19:00 02/29/20 18:59 Vancomycin HCl (Vanco rx to dose) 1 ea DAILY PRN MISC Per rx protocol 01/30/20 19:00 02/29/20 18:59 Vancomycin HCl 750 mg/Sodium Chloride 275 ml @ 183.333 mls/hr Q24H IVPB 01/31/20 21:00 02/05/20 20:59 02/01/20 20:01 Abiodun Jacobo MD Feb 02, 2020 18:49
[2020-02-02] MEDS ORDERED: cefTRIAXone 1 GM in D5W 50 ML IVPB SCH (19:15)
--- NOTE | 2020-02-02 19:32 | Surgery Progress Note ---
Surgery Progress Note Subjective Additional Comments no acute events labs noted exam stable Objective Last 24 Hour Vital Signs Date Time Temp Pulse Resp B/P (MAP) Pulse Ox O2 Delivery O2 Flow Rate FiO2 02/02/20 16:00 113 02/02/20 16:00 2.0 02/02/20 15:59 Nasal Cannula 2.0 02/02/20 15:56 99.5 126 18 122/58 (79) 100 02/02/20 12:00 2.0 02/02/20 12:00 Nasal Cannula 2.0 02/02/20 12:00 98.2 123 18 137/68 (91) 100 02/02/20 12:00 116 02/02/20 08:00 120 02/02/20 08:00 2.0 02/02/20 08:00 Nasal Cannula 2.0 02/02/20 08:00 98.1 119 18 120/66 (84) 99 02/02/20 04:00 Nasal Cannula 2.0 02/02/20 04:00 2.0 02/02/20 04:00 98.1 112 18 134/74 (94) 99 02/02/20 03:51 117 02/02/20 00:00 98.0 105 20 136/73 (94) 100 02/02/20 00:00 2.0 02/02/20 00:00 Nasal Cannula 2.0 02/01/20 23:36 110 02/01/20 20:00 129 02/01/20 20:00 97.9 108 20 146/64 (91) 100 02/01/20 20:00 Nasal Cannula 2.0 02/01/20 20:00 2.0 I&O Intake and Output 02/01/20 02/02/20 19:00 07:00 Intake Total 710 ml 1116.666 ml Output Total 750 ml 700 ml Balance -40 ml 416.666 ml Free Water 50 ml 50 ml IV Total 466.666 ml Tube Feeding 660 ml 600 ml Output Urine Total 750 ml 700 ml # Bowel Movements 3 4 Dressing: other Wound: other Drains: other Cardiovascular: RSR Respiratory: decreased breath sounds Abdomen: soft, non-tender, present bowel sounds Extremities: no tenderness, no cyanosis Laboratory Tests Test 02/02/20 04:00 White Blood Count 29.6 K/UL (4.8-10.8) *H Red Blood Count 3.50 M/UL (4.20-5.40) L Hemoglobin 10.1 G/DL (12.0-16.0) L Hematocrit 29.8 % (37.0-47.0) L Mean Corpuscular Volume 85 FL (80-99) Mean Corpuscular Hemoglobin 28.8 PG (27.0-31.0) Mean Corpuscular Hemoglobin Concent 33.8 G/DL (32.0-36.0) Red Cell Distribution Width 14.3 % (11.6-14.8) Platelet Count 165 K/UL (150-450) Mean Platelet Volume 7.1 FL (6.5-10.1) Neutrophils (%) (Auto) % (45.0-75.0) Lymphocytes (%) (Auto) % (20.0-45.0) Monocytes (%) (Auto) % (1.0-10.0) Eosinophils (%) (Auto) % (0.0-3.0) Basophils (%) (Auto) % (0.0-2.0) Differential Total Cells Counted 100 Neutrophils % (Manual) 88 % (45-75) H Lymphocytes % (Manual) 4 % (20-45) L Monocytes % (Manual) 2 % (1-10) Eosinophils % (Manual) 0 % (0-3) Basophils % (Manual) 0 % (0-2) Band Neutrophils 6 % (0-8) Platelet Estimate Adequate Platelet Morphology Normal Hypochromasia 1+ Sodium Level 152 MMOL/L (136-145) H Potassium Level 3.5 MMOL/L (3.5-5.1) Chloride Level 114 MMOL/L (98-107) H Carbon Dioxide Level 29 MMOL/L (21-32) Anion Gap 9 mmol/L (5-15) Blood Urea Nitrogen 31 mg/dL (7-18) H Creatinine 0.7 MG/DL (0.55-1.30) Estimat Glomerular Filtration Rate > 60 mL/min (>60) Glucose Level 123 MG/DL (74-106) H Calcium Level 8.9 MG/DL (8.5-10.1) Plan Problems: (1) Septic shock Assessment & Plan: Patient presented to emergency department with sepsis hypotension tachycardia lactic acidosis leukocytosis. On IV antibiotics Labs improving IV hydration Continue tube feeds advance goal as tolerated Abdominal exam does elicit patient to retract a bit but she is not tender peritonitis or without rebound or significant guarding. Likely startle effect rather than intra-abdominal pathology will follow with serial exams continue with current care plan thank you for let me participate in patient's care (2) Decubitus skin ulcer Assessment & Plan: 84-year-old female presented on admission with multiple decubitus skin ulcers and skin concerns. Patient identified to have a unstageable sacral lower back decubitus ulcer, periwound maceration, area of necrotic eschar soft, no drainage, no abscess, no foul odor Pt presented on admission with contractures, Multiple Pressure injuries.open DTPI sacrum.Wound is open at sacrococcygeal area(40%), with soft necrotic base ( L)5.5cm x (W)4.5cm. Surrounding base of wound is maroon and indurated. Total area of sacral DTPI measures(L) 12.5cm x (W)15cm. Non-blanching erythema periwound.In addition several small partial thickness wounds noted along Perineum.` Areas of hyperpigmentation noted to L and R trochanteric. Full thickness wound R knee.(L)1.1cm x (W)1.5cm.1 Base of wound 90% pink granulation,10% slough noted in center of wound. Borders are macerated.small amt serous exudate. No odor noted. No erythema or fluctuance noted periwound. Non-blanching erythema with fluctuance R heel. Unstageable pressure injury R hallux. Base of wound is 100% soft necrosis. Edges adherent and dry.No odor or exudate noted.Surrounding darker skin tone without erythema or fluctuance(L)2.6cm x (W)3cm. DTPI R Ankle(L)0.9cm x (W)1.6cm. Base of wound is fluctuant, maroon with marginal erythema. Periwound without erythema or fluctuance. Unstageable pressure injury distal/lateral R foot. Base of wound 100% soft necrosis with surrounding non-blanching erythema with fluctuance.(L)2cm x (W) 0.9cm. Stable dry eschar medial/lateral R foot (L)0.4cm x (W)0.8cm. Stable dry eschar lateral L heel.(L)1.9cm x (W)2.2cm. No erythema or fluctuance periwound. Unstable pressure injury medial/lateral L foot. Base of wound is 100% necrotic but dry.(L)0.7cm x (W)0.8cm. Unstageable pressure injury distal/lateral L foot. Base of wound is 100% necrotic but dry. (L)1.2cm x (W)1.6cm.non-blanching erythema without fluctuance periwound. Non-blanching erythema without fluctuance lateral L 5th metatarsal.(L)1.5cm x (W )0.5cm. Open DTPI L Hallux.Base of wound has mixed necrosis and slough with surrounding base of wound maroon with fluctuance. Non-blanching erythema without elevation in skin temp,or fluctuance periwound. Tx.plan: Cleanse Sacral wound with Saline. Apply TheraHoney. Apply Moisture Barrier Paste Periwound. Cover with Optifoam drsg. Change Daily and prn. Swab R nee with Betadine. Cover with Optifoam drsg every 3 days and prn. Swab wounds R foot with Betadine. Cover each wound with Optifoam drsg. Change every 3 days and prn. Swab wounds L foot with Betadine. Cover each wound with Optifoam drsg. Change every 3 days and prn. Reposition at least every 2hours or as tolerated. Place pillow between knees. Off-load heels with Pillow. APM/ARIEL Mattress. DAILY ESTIMATED NEEDS: Needs based on Wounds, underweight 50kg 30-35 kcals/kg 6287-0021 total kcals 1.25-2 g protein/kg 63-100 g total protein 25-30 mL/kg 2713-5851 total fluid mLs NUTRITION DIAGNOSIS: Increased kcal and pro needs r/t underweight status and wound healing as evidenced by pt @85% [place] Body Weight w/ multiple wounds, eval pending, pt is PEG dep. CURRENT TF:Glucerna 1.5 @60ml x20 hrs ENTERAL NUTRITION RECOMMENDATIONS: Maintain current TF as tolerated: Glucerna 1.5 @60ml/hr x20 hrs to provide 1200ml, 1800 kcal, 99g pro, 911ml free H2o -> Monitor for hypoglycemia and need to change to non carb control formula -> Flush per MD. HOB over 30 degrees ADDITIONAL RECOMMENDATIONS: 1) On iso, per SNF pt is: 65 inches + 110#/50kg 2) Wound care: add MATT in 4oz H2O BID via GT F/up w/ WC eval 3) Maintain calibrated bed scale wts 4) Monitor for continued hypoglycemic events, need for D5 or TF change Luther Mercedes Feb 02, 2020 19:32
--- NOTE | 2020-02-02 19:45 | Consultation ---
DATE OF CONSULTATION: 02/02/2020 NOTE: CANCELED DICTATION Abiodun Jacobo M.D. DR: DIVYA JOB#: [id number] CC:
[2020-02-02 20:00] VITALS: BP 123/55
--- NOTE | 2020-02-02 20:00 | Consultation ---
DATE OF CONSULTATION: 01/31/2020 INFECTIOUS DISEASE CONSULTATION CONSULTING PHYSICIAN: Abiodun Jacobo M.D. ATTENDING PHYSICIAN: Isa Ponce M.D. REFERRING PHYSICIAN: Dr. Carmine Salgado. REASON FOR CONSULTATION: Gram-negative bacteremia, possible urinary tract infection, and severe leukocytosis and sepsis. CHIEF COMPLAINT: The patient's chief complaint coming into the hospital is sepsis, leukocytosis, rule out COVID-19 infection, also hypotension. HISTORY OF PRESENT ILLNESS: This is an 84-year-old female, who comes into [facility] with hypotension. She had an elevated lactic acid and possible urinary tract infection. Workup shows she had gram-negative bacteremia. The patient had a white count of over 30,000. Infectious Disease consultation is requested. The patient initially was started on vancomycin and meropenem for the gram-negative bacteremia, sepsis, and elevated white count. Initial chest x-ray showed no obvious pneumonia. MAR was noted. Orders were noted. Notes and records were reviewed. Case was discussed with RN. The patient is COVID-19 isolation. The patient will continue on vancomycin and meropenem for gram-negative bacteremia and sepsis for now. REVIEW OF SYSTEMS: CONSTITUTIONAL: The patient is not a very good historian. She has generalized fatigue and weakness. She is minimally responsive. She does have a Tovar. I do not think she has a central line. HEAD AND NECK: Could not be assessed. CARDIAC: No pressors. GASTROINTESTINAL: No nausea, vomiting, or diarrhea. GENITOURINARY: She has a Tovar. PULMONARY: Mild shortness of breath and cough. SKIN: No rash. NEUROLOGIC: No seizures. Generalized fatigue. Poorly responsive. She does have wounds that were reviewed. No seizure activity or maculopapular rash. PAST MEDICAL HISTORY: The patient's past medical history includes the following. The patient has a past medical history of diabetes, hyperlipidemia, possible hypertension, hypothyroidism, CVA, anemia, hemiplegia, wounds, chronic kidney disease, gastroesophageal reflux disease, chronic obstructive pulmonary disease, congestive heart failure, and permanent pacemaker. MEDICATIONS: Upon reviewing the MAR, he is on the following medications. He is on docusate, meropenem, vancomycin, levothyroxine, atorvastatin, heparin, albuterol treatments, acetaminophen, Zofran, diphenhydramine, and IV fluids. Outside medications were noted and reconciliated. ALLERGIES: No known drug allergies. No antibiotic allergies. SOCIAL HISTORY: Negative for smoking, alcohol, or drug abuse. FAMILY HISTORY: Noncontributory. PHYSICAL EXAMINATION: VITAL SIGNS: Temperature 98.1, pulse rate 109, respiratory rate 22, blood pressure 128/67, and saturation 100%. Respiratory rate as high as 24. GENERAL: Weak and lethargic. HEAD AND NECK: Oral exam, no thrush. Eye exam, no icterus. Normocephalic. Neck is supple. HEART: Regular. No gallop or murmur. ABDOMEN: Soft. Positive bowel sounds and nontender. LUNGS: Fairly clear bilaterally. No rhonchi or rales. SKIN: No rash. MUSCULOSKELETAL: No effusions. Legs are without cellulitis. PERIPHERAL VASCULAR: No cyanosis. GENITOURINARY: She has a Tovar. Urine is cloudy. LINE SITES: Without phlebitis. NEUROLOGIC: General weakness and lethargic. Multiple wounds were noted and reviewed. LABORATORY DATA: Laboratory data is as follows. White count 34.5 and hemoglobin 7.8. Creatinine is 1.0. CULTURES: Blood cultures grew out gram-negative rods. Identification is pending. UA had 3+ leukocyte esterase and only 0 to 2 white blood cells. IMAGING STUDIES: Chest x-ray showed no acute disease. Noted and reviewed. ASSESSMENT AND PLAN: 1. The patient has severe sepsis, elevated white count, SIRS criteria, and elevated lactic acid level. The patient's lactic acid was 3.2. The patient has gram-negative bacteremia and gram-negative sepsis. Most likely source is urine. She has had 3+ leukocyte esterase, however, she did not have any white cells. At this time, we will continue antibiotics, vancomycin and meropenem empirically for gram-negative bacteremia, sepsis, severe leukocytosis, SIRS criteria, questionable urinary tract infection, rule out other source. With regards to COVID-19, she is being ruled out for this. I have low suspicion for COVID-19 infection. Continue vancomycin and meropenem for gram-negative bacteremia and sepsis. Check cultures and laboratories. I would also consider a CT scan of the pelvis to rule out other source of gram-negative bacteremia once the patient's COVID-19 testing is back and the patient is being ruled out for COVID-19 infection. 2. The patient has history of diabetes. 3. Questionable hypertension. 4. Hyperlipidemia. 5. Blood pressure treatment per primary care team. 6. Hypothyroidism. 7. Thyroid supplementation and lipid treatment per primary care team. 8. CVA. 9. Weakness. 10. Anemia. 11. Chronic kidney disease. 12. Gastroesophageal reflux disease. 13. COPD. 14. Congestive heart failure. 15. Permanent pacemaker. 16. MAR is noted. 17. Case was discussed with RN. 18. Family history is noncontributory. 19. Social history is negative. 20. No known drug allergies. Abiodun Jacobo M.D. DR: JESSIE JOB#: [id number] CC:
[2020-02-02] MEDS: Atorvastatin 20mg tab ORAL SCH (21:22)
[2020-02-03] VITALS: BP 137/54
[2020-02-03 04:00] VITALS: BP 142/58
[2020-02-03 06:07] LABS: BASOPHILS % (AUTO) 0.8 % (0.0-2.0); EOSINOPHILS % (AUTO) 0.5 % (0.0-3.0); HEMATOCRIT 24.5 % (37.0-47.0); HEMOGLOBIN 8.2 G/DL (12.0-16.0); LYMPHOCYTES % (AUTO) 8.8 % (20.0-45.0); MEAN CORPUSCULAR VOLUME 87 FL (80-99); MONOCYTES % (AUTO) 7.4 % (1.0-10.0); NEUTROPHILS % (AUTO) 82.4 % (45.0-75.0); PLATELET COUNT 156 K/UL (150-450); RED BLOOD COUNT 2.83 M/UL (4.20-5.40); RED CELL DISTRIBUTION WIDTH 14.6 % (11.6-14.8); WHITE BLOOD COUNT 15.7 K/UL (4.8-10.8)
[2020-02-03] MEDS: Levothyroxine 25mcg tab ORAL SCH (06:30)
[2020-02-03 06:46] LABS: ALANINE AMINOTRANSFERASE 37 U/L (12-78); ALBUMIN 1.4 G/DL (3.4-5.0); ALBUMIN/GLOBULIN RATIO 0.3 (1.0-2.7); ALKALINE PHOSPHATASE 146 U/L (46-116); ANION GAP 10 mmol/L (5-15); ASPARTATE AMINO TRANSFERASE 36 U/L (15-37); BILIRUBIN,TOTAL 0.3 MG/DL (0.2-1.0); BLOOD UREA NITROGEN 34 mg/dL (7-18); CARBON DIOXIDE 27 MMOL/L (21-32); CHLORIDE 114 MMOL/L (98-107); CREATININE 0.9 MG/DL (0.55-1.30); POTASSIUM 3.9 MMOL/L (3.5-5.1); SODIUM 151 MMOL/L (136-145)
[2020-02-03 08:00] VITALS: BP 124/88
[2020-02-03] MEDS: Heparin 5000 units/ml inj SUBQ SCH ×2 (08:36→21:02)
--- NOTE | 2020-02-03 08:47 | General Progress Note ---
Assessment/Plan Status: stable Assessment/Plan: 84 year old woman with history of CVA, hemiplegia, DM, COPD, CKD, hyperlipidemia , hypothyroidism, GERD, unspecified CHF, S/p PPM brought in from SNF with hypotension, found to be septic with leukocytosis and minimal pyuria #Sepsis #Gram negative bacteremia, unclear source #Hypotension - resolved #Elevated lactate, improved #Leukocytosis - downtrending -continue inpatient level of care -cardiac monitoring -continue broad spectrum antibiotics, IV fluids -hold anti-hypertensives -follow up COVID 19 sent in ED, pending -BCx + citrobacter -Droplet precautions for now -ID following - d/c vanc/meropenum, start Zosyn #Hypernatremia -Na 152 on 02/01, 151 on -increase FWF 100 to 200 cc q6h -cont. 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 Subjective Allergies: Coded Allergies: No Known Allergies (Unverified , 01/30/20) Subjective Follow up for sepsis, gram negative bacteremia. No acute events overnight. WBC remains elevated, downtrending. Patient aphasic/non-verbal. At b/l per nurse. Objective Last 24 Hour Vital Signs Date Time Temp Pulse Resp B/P (MAP) Pulse Ox O2 Delivery O2 Flow Rate FiO2 02/03/20 08:00 98.1 126 18 124/88 (100) 100 02/03/20 04:00 98.3 110 18 142/58 (86) 98 02/03/20 04:00 Nasal Cannula 2.0 02/03/20 04:00 105 02/03/20 04:00 2.0 02/03/20 00:00 97.8 105 18 137/54 (81) 99 02/03/20 00:00 124 02/03/20 00:00 Nasal Cannula 2.0 02/03/20 00:00 2.0 02/02/20 20:00 Nasal Cannula 2.0 02/02/20 20:00 97.9 100 18 123/55 (77) 100 02/02/20 20:00 2.0 02/02/20 20:00 107 02/02/20 19:58 100 Nasal Cannula 2.0 28 02/02/20 19:58 107 20 100 Nasal Cannula 2.0 28 02/02/20 16:00 113 02/02/20 16:00 2.0 02/02/20 15:59 Nasal Cannula 2.0 02/02/20 15:56 99.5 126 18 122/58 (79) 100 02/02/20 12:00 2.0 02/02/20 12:00 Nasal Cannula 2.0 02/02/20 12:00 98.2 123 18 137/68 (91) 100 02/02/20 12:00 116 Intake and Output 02/02/20 02/03/20 19:00 07:00 Intake Total 860 ml 840 ml Output Total 625 ml 500 ml Balance 235 ml 340 ml Free Water 200 ml 200 ml IV Total 100 ml Tube Feeding 660 ml 540 ml Output Urine Total 625 ml 500 ml # Bowel Movements 2 1 Laboratory Tests 02/02/20 19:55: Vancomycin Level Trough 12.8H 02/03/20 05:00: White Blood Count 15.7H, Red Blood Count 2.83L, Hemoglobin 8.2L, Hematocrit 24.5L, Mean Corpuscular Volume 87, Mean Corpuscular Hemoglobin 29.0, Mean Corpuscular Hemoglobin Concent 33.4, Red Cell Distribution Width 14.6, Platelet Count 156, Mean Platelet Volume 6.9, Neutrophils (%) (Auto) 82.4H, Lymphocytes ( %) (Auto) 8.8L, Monocytes (%) (Auto) 7.4, Eosinophils (%) (Auto) 0.5, Basophils (%) (Auto) 0.8, Sodium Level 151H, Potassium Level 3.9, Chloride Level 114H, Carbon Dioxide Level 27, Anion Gap 10, Blood Urea Nitrogen 34H, Creatinine 0.9, Estimat Glomerular Filtration Rate > 60, Glucose Level 116H, Calcium Level 9.0, Total Bilirubin 0.3, Aspartate Amino Transf (AST/SGOT) 36, Alanine Aminotransferase (ALT/SGPT) 37, Alkaline Phosphatase 146H, Total Protein 6.1L, Albumin 1.4L, Globulin 4.7, Albumin/Globulin Ratio 0.3L Height (Feet): 5 Height (Inches): 2.00 Weight (Pounds): 115 Objective General Appearance: NAD, non-verbal, otherwise awake, alert Neck: normal alignment, supple CV: RRR Respiratory: lungs clear, normal breath sounds, no respiratory distress Abdomen: non tender, soft, +PEG tube, c/d/i Ext: Contracted bilaterally, multiple abrasions wrapped in bandages C/D/I Lorna Uribe M.D. Feb 03, 2020 08:47
--- NOTE | 2020-02-03 09:51 | Consultation ---
History of Present Illness General Date patient seen: Feb 03, 2020 Time patient seen: 09:51 Chief Complaint: General Complaint Reason for Consultation: Hypernatremia Present Illness HPI This is a 84 year old female with the past medical history of CVA, hemiplegia, DM, COPD, CKD, hyperlipidemia, hypothyroidism, GERD, unspecified CHF, S/p PPM brought in from SNF with hypotension, found to be septic with leukocytosis. she has been hypernatremic over the past few days. She has been tolerating tubefeeds. Further history limited due to baseline condition. Allergies: Coded Allergies: No Known Allergies (Unverified , 01/30/20) Medication History Scheduled Amlodipine Besylate* (Amlodipine Besylate*), 10 MG ORAL DAILY, (Reported) Atorvastatin Calcium* (Atorvastatin Calcium*), 40 MG GT BEDTIME, (Reported) Bisacodyl (Bisacodyl), 10 MG RC DAILY, (Reported) Clonidine Hcl* (Catapres*), 0.1 MG GT EVERY 6 HOURS, (Reported) Docusate Sodium* (Docusate Sodium*), 100 MG ORAL DAILY, (Reported) Enoxaparin* (Lovenox*), 300 MG SUBQ DAILY, (Reported) Famotidine* (Pepcid 20mg tablet*), 20 MG ORAL DAILY, (Reported) Levothyroxine Sodium* (Levothyroxine Sodium*), 25 MCG GT DAILY, (Reported) Multivitamin With Minerals (Multivitamins With Minerals*), 1 TAB GT DAILY, ( Reported) Scheduled PRN Acetaminophen (Tylenol), 650 MG GT Q6H PRN for Prn Pain/Headache/Temp > 101, ( Reported) Ipratropium Mccloud 0.5MG/2.5ML (Ipratropium Mccloud 0.5MG/2.5ML), 0.5 MG HHN Q6H PRN for Shortness of Breath, (Reported) Miscellaneous Medications Lactulose (Lactulose*), 20 ML GT, (Reported) Patient History Limited by: medical condition History Provided By: Medical Record Healthcare decision maker N Resuscitation status Full Code Advanced Directive on File Past Medical/Surgical History Past Medical/Surgical History: (1) Septic shock (2) Anemia (3) Elevated troponin (4) Sepsis (5) Decubitus skin ulcer Review of Systems ROS Narrative Unable to obtain due to AMS Physical Exam Last 24 Hour Vital Signs Date Time Temp Pulse Resp B/P (MAP) Pulse Ox O2 Delivery O2 Flow Rate FiO2 02/03/20 08:00 Nasal Cannula 2.0 02/03/20 08:00 98.1 126 18 124/88 (100) 100 02/03/20 08:00 2.0 02/03/20 08:00 126 02/03/20 04:00 98.3 110 18 142/58 (86) 98 02/03/20 04:00 Nasal Cannula 2.0 02/03/20 04:00 105 02/03/20 04:00 2.0 02/03/20 00:00 97.8 105 18 137/54 (81) 99 02/03/20 00:00 124 02/03/20 00:00 Nasal Cannula 2.0 02/03/20 00:00 2.0 02/02/20 20:00 Nasal Cannula 2.0 02/02/20 20:00 97.9 100 18 123/55 (77) 100 02/02/20 20:00 2.0 02/02/20 20:00 107 02/02/20 19:58 100 Nasal Cannula 2.0 28 02/02/20 19:58 107 20 100 Nasal Cannula 2.0 28 02/02/20 16:00 113 02/02/20 16:00 2.0 02/02/20 15:59 Nasal Cannula 2.0 02/02/20 15:56 99.5 126 18 122/58 (79) 100 02/02/20 12:00 2.0 02/02/20 12:00 Nasal Cannula 2.0 02/02/20 12:00 98.2 123 18 137/68 (91) 100 02/02/20 12:00 116 Intake and Output 02/02/20 02/03/20 19:00 07:00 Intake Total 860 ml 852.5 ml Output Total 625 ml 500 ml Balance 235 ml 352.5 ml Free Water 200 ml 200 ml IV Total 112.5 ml Tube Feeding 660 ml 540 ml Output Urine Total 625 ml 500 ml # Bowel Movements 2 1 Laboratory Tests Test 02/02/20 19:55 02/03/20 05:00 Vancomycin Level Trough 12.8 ug/mL (5.0-12.0) H White Blood Count 15.7 K/UL (4.8-10.8) H Red Blood Count 2.83 M/UL (4.20-5.40) L Hemoglobin 8.2 G/DL (12.0-16.0) L Hematocrit 24.5 % (37.0-47.0) L Mean Corpuscular Volume 87 FL (80-99) Mean Corpuscular Hemoglobin 29.0 PG (27.0-31.0) Mean Corpuscular Hemoglobin Concent 33.4 G/DL (32.0-36.0) Red Cell Distribution Width 14.6 % (11.6-14.8) Platelet Count 156 K/UL (150-450) Mean Platelet Volume 6.9 FL (6.5-10.1) Neutrophils (%) (Auto) 82.4 % (45.0-75.0) H Lymphocytes (%) (Auto) 8.8 % (20.0-45.0) L Monocytes (%) (Auto) 7.4 % (1.0-10.0) Eosinophils (%) (Auto) 0.5 % (0.0-3.0) Basophils (%) (Auto) 0.8 % (0.0-2.0) Sodium Level 151 MMOL/L (136-145) H Potassium Level 3.9 MMOL/L (3.5-5.1) Chloride Level 114 MMOL/L (98-107) H Carbon Dioxide Level 27 MMOL/L (21-32) Anion Gap 10 mmol/L (5-15) Blood Urea Nitrogen 34 mg/dL (7-18) H Creatinine 0.9 MG/DL (0.55-1.30) Estimat Glomerular Filtration Rate > 60 mL/min (>60) Glucose Level 116 MG/DL (74-106) H Calcium Level 9.0 MG/DL (8.5-10.1) Total Bilirubin 0.3 MG/DL (0.2-1.0) Aspartate Amino Transf (AST/SGOT) 36 U/L (15-37) Alanine Aminotransferase (ALT/SGPT) 37 U/L (12-78) Alkaline Phosphatase 146 U/L (46-116) H Total Protein 6.1 G/DL (6.4-8.2) L Albumin 1.4 G/DL (3.4-5.0) L Globulin 4.7 g/dL Albumin/Globulin Ratio 0.3 (1.0-2.7) L Height (Feet): 5 Height (Inches): 2.00 Weight (Pounds): 115 Medications Current Medications Medications (Trade) Dose Ordered Sig/More[place] Route PRN Reason Start Time Stop Time Status Last Admin Dose Admin Acetaminophen (Tylenol) 650 mg Q4H PRN ORAL Mild Pain (Pain Scale 1-3) 01/30/20 19:00 02/29/20 18:59 Albuterol/ Ipratropium (Albuterol/ Ipratropium) 3 ml Q6H PRN HHN Shortness of Breath 01/30/20 19:00 02/04/20 18:59 Atorvastatin Calcium (Lipitor) 40 mg BEDTIME ORAL 01/30/20 21:00 04/29/20 20:59 02/02/20 21:22 Dextrose (Dextrose 50%) 25 ml Q30M PRN IV Hypoglycemia 01/30/20 19:00 04/29/20 18:59 Dextrose (Dextrose 50%) 50 ml Q30M PRN IV Hypoglycemia 01/30/20 19:00 04/29/20 18:59 Diphenhydramine HCl (Benadryl) 25 mg Q6H PRN ORAL Itching/Pruritis 01/30/20 19:00 02/29/20 18:59 Docusate Sodium (Colace) 100 mg Q12H PRN ORAL Constipation 02/02/20 12:45 03/03/20 12:44 Heparin Sodium (Porcine) (Heparin 5000 units/ml) 5,000 units EVERY 12 HOURS SUBQ 01/30/20 21:00 03/15/20 20:59 02/03/20 08:36 Levothyroxine Sodium (Synthroid) 25 mcg DAILY@0630 ORAL 01/31/20 06:30 03/01/20 06:29 02/03/20 06:30 Ondansetron HCl (Zofran) 4 mg Q6H PRN IVP Nausea & Vomiting 01/30/20 19:00 02/29/20 18:59 Piperacillin Sod/ Tazobactam Sod 3.375 gm/Dextrose 100 ml @ 25 mls/hr EVERY 8 HOURS IVPB 02/02/20 22:00 02/07/20 21:59 02/03/20 06:30 Objective Narrative General Appearance: NAD, otherwise awake, alert, confused Neck: normal alignment, supple CV: RRR Respiratory: lungs clear, normal breath sounds, no respiratory distress Abdomen: non tender, soft, +PEG tube, c/d/i Ext: Contracted bilaterally, multiple abrasions wrapped in bandages C/D/I Assessment/Plan Diagnosis [place] I: #hypernatremia due to free water deficit of close to 3L #sepsis #h/o CVA with hemiplegia #DM #COPD # hyperlipidemia #hypothyroidism # GERD # unspecified CHF, S/p PPM - d5w 500cc x1 - increase free water flushes to [id number] - monitor bmp daily - continue abx - avoid nephrotoxins - strict I&Os - daily weights - monitor Cathy Petit M.D. Feb 03, 2020 09:51
[2020-02-03 12:00] VITALS: BP 143/80
--- NOTE | 2020-02-03 14:51 | Surgery Progress Note ---
Surgery Progress Note Subjective Additional Comments no acute events comfortable labs reviewed exam stale Objective Last 24 Hour Vital Signs Date Time Temp Pulse Resp B/P (MAP) Pulse Ox O2 Delivery O2 Flow Rate FiO2 02/03/20 12:00 98.2 115 20 143/80 (101) 100 02/03/20 12:00 2.0 02/03/20 12:00 117 02/03/20 12:00 Nasal Cannula 2.0 02/03/20 08:00 Nasal Cannula 2.0 02/03/20 08:00 98.1 126 18 124/88 (100) 100 02/03/20 08:00 2.0 02/03/20 08:00 126 02/03/20 04:00 98.3 110 18 142/58 (86) 98 02/03/20 04:00 Nasal Cannula 2.0 02/03/20 04:00 105 02/03/20 04:00 2.0 02/03/20 00:00 97.8 105 18 137/54 (81) 99 02/03/20 00:00 124 02/03/20 00:00 Nasal Cannula 2.0 02/03/20 00:00 2.0 02/02/20 20:00 Nasal Cannula 2.0 02/02/20 20:00 97.9 100 18 123/55 (77) 100 02/02/20 20:00 2.0 02/02/20 20:00 107 02/02/20 19:58 100 Nasal Cannula 2.0 28 02/02/20 19:58 107 20 100 Nasal Cannula 2.0 28 02/02/20 16:00 113 02/02/20 16:00 2.0 02/02/20 15:59 Nasal Cannula 2.0 02/02/20 15:56 99.5 126 18 122/58 (79) 100 I&O Intake and Output 02/02/20 02/03/20 19:00 07:00 Intake Total 860 ml 852.5 ml Output Total 625 ml 500 ml Balance 235 ml 352.5 ml Free Water 200 ml 200 ml IV Total 112.5 ml Tube Feeding 660 ml 540 ml Output Urine Total 625 ml 500 ml # Bowel Movements 2 1 Dressing: saturated, other Wound: other Drains: other Cardiovascular: RSR, other Respiratory: clear, decreased breath sounds, other Abdomen: non-tender, present bowel sounds Extremities: no cyanosis Laboratory Tests Test 02/02/20 19:55 02/03/20 05:00 Vancomycin Level Trough 12.8 ug/mL (5.0-12.0) H White Blood Count 15.7 K/UL (4.8-10.8) H Red Blood Count 2.83 M/UL (4.20-5.40) L Hemoglobin 8.2 G/DL (12.0-16.0) L Hematocrit 24.5 % (37.0-47.0) L Mean Corpuscular Volume 87 FL (80-99) Mean Corpuscular Hemoglobin 29.0 PG (27.0-31.0) Mean Corpuscular Hemoglobin Concent 33.4 G/DL (32.0-36.0) Red Cell Distribution Width 14.6 % (11.6-14.8) Platelet Count 156 K/UL (150-450) Mean Platelet Volume 6.9 FL (6.5-10.1) Neutrophils (%) (Auto) 82.4 % (45.0-75.0) H Lymphocytes (%) (Auto) 8.8 % (20.0-45.0) L Monocytes (%) (Auto) 7.4 % (1.0-10.0) Eosinophils (%) (Auto) 0.5 % (0.0-3.0) Basophils (%) (Auto) 0.8 % (0.0-2.0) Sodium Level 151 MMOL/L (136-145) H Potassium Level 3.9 MMOL/L (3.5-5.1) Chloride Level 114 MMOL/L (98-107) H Carbon Dioxide Level 27 MMOL/L (21-32) Anion Gap 10 mmol/L (5-15) Blood Urea Nitrogen 34 mg/dL (7-18) H Creatinine 0.9 MG/DL (0.55-1.30) Estimat Glomerular Filtration Rate > 60 mL/min (>60) Glucose Level 116 MG/DL (74-106) H Calcium Level 9.0 MG/DL (8.5-10.1) Total Bilirubin 0.3 MG/DL (0.2-1.0) Aspartate Amino Transf (AST/SGOT) 36 U/L (15-37) Alanine Aminotransferase (ALT/SGPT) 37 U/L (12-78) Alkaline Phosphatase 146 U/L (46-116) H Total Protein 6.1 G/DL (6.4-8.2) L Albumin 1.4 G/DL (3.4-5.0) L Globulin 4.7 g/dL Albumin/Globulin Ratio 0.3 (1.0-2.7) L Plan Problems: (1) Septic shock Assessment & Plan: Patient presented to emergency department with sepsis hypotension tachycardia lactic acidosis leukocytosis. On IV antibiotics Labs improving IV hydration Continue tube feeds advance goal as tolerated Abdominal exam does elicit patient to retract a bit but she is not tender peritonitis or without rebound or significant guarding. exam improved Likely startle effect rather than intra-abdominal pathology will follow with serial exams continue with current care plan thank you for let me participate in patient's care (2) Decubitus skin ulcer Assessment & Plan: 84-year-old female presented on admission with multiple decubitus skin ulcers and skin concerns. Patient identified to have a unstageable sacral lower back decubitus ulcer, periwound maceration, area of necrotic eschar soft, no drainage, no abscess, no foul odor Pt presented on admission with contractures, Multiple Pressure injuries.open DTPI sacrum.Wound is open at sacrococcygeal area(40%), with soft necrotic base ( L)5.5cm x (W)4.5cm. Surrounding base of wound is maroon and indurated. Total area of sacral DTPI measures(L) 12.5cm x (W)15cm. Non-blanching erythema periwound.In addition several small partial thickness wounds noted along Perineum.` Areas of hyperpigmentation noted to L and R trochanteric. Full thickness wound R knee.(L)1.1cm x (W)1.5cm.1 Base of wound 90% pink granulation,10% slough noted in center of wound. Borders are macerated.small amt serous exudate. No odor noted. No erythema or fluctuance noted periwound. Non-blanching erythema with fluctuance R heel. Unstageable pressure injury R hallux. Base of wound is 100% soft necrosis. Edges adherent and dry.No odor or exudate noted.Surrounding darker skin tone without erythema or fluctuance(L)2.6cm x (W)3cm. DTPI R Ankle(L)0.9cm x (W)1.6cm. Base of wound is fluctuant, maroon with marginal erythema. Periwound without erythema or fluctuance. Unstageable pressure injury distal/lateral R foot. Base of wound 100% soft necrosis with surrounding non-blanching erythema with fluctuance.(L)2cm x (W) 0.9cm. Stable dry eschar medial/lateral R foot (L)0.4cm x (W)0.8cm. Stable dry eschar lateral L heel.(L)1.9cm x (W)2.2cm. No erythema or fluctuance periwound. Unstable pressure injury medial/lateral L foot. Base of wound is 100% necrotic but dry.(L)0.7cm x (W)0.8cm. Unstageable pressure injury distal/lateral L foot. Base of wound is 100% necrotic but dry. (L)1.2cm x (W)1.6cm.non-blanching erythema without fluctuance periwound. Non-blanching erythema without fluctuance lateral L 5th metatarsal.(L)1.5cm x (W )0.5cm. Open DTPI L Hallux.Base of wound has mixed necrosis and slough with surrounding base of wound maroon with fluctuance. Non-blanching erythema without elevation in skin temp,or fluctuance periwound. Tx.plan: Cleanse Sacral wound with Saline. Apply TheraHoney. Apply Moisture Barrier Paste Periwound. Cover with Optifoam drsg. Change Daily and prn. Swab R nee with Betadine. Cover with Optifoam drsg every 3 days and prn. Swab wounds R foot with Betadine. Cover each wound with Optifoam drsg. Change every 3 days and prn. Swab wounds L foot with Betadine. Cover each wound with Optifoam drsg. Change every 3 days and prn. Reposition at least every 2hours or as tolerated. Place pillow between knees. Off-load heels with Pillow. APM/ARIEL Mattress. DAILY ESTIMATED NEEDS: Needs based on Wounds, underweight 50kg 30-35 kcals/kg 3211-8077 total kcals 1.25-2 g protein/kg 63-100 g total protein 25-30 mL/kg 2133-8099 total fluid mLs NUTRITION DIAGNOSIS: Increased kcal and pro needs r/t underweight status and wound healing as evidenced by pt @85% [place] Body Weight w/ multiple wounds, eval pending, pt is PEG dep. CURRENT TF:Glucerna 1.5 @60ml x20 hrs ENTERAL NUTRITION RECOMMENDATIONS: Maintain current TF as tolerated: Glucerna 1.5 @60ml/hr x20 hrs to provide 1200ml, 1800 kcal, 99g pro, 911ml free H2o -> Monitor for hypoglycemia and need to change to non carb control formula -> Flush per MD. HOB over 30 degrees ADDITIONAL RECOMMENDATIONS: 1) On iso, per SNF pt is: 65 inches + 110#/50kg 2) Wound care: add MATT in 4oz H2O BID via GT F/up w/ WC eval 3) Maintain calibrated bed scale wts 4) Monitor for continued hypoglycemic events, need for D5 or TF change Luther Mercedes Feb 03, 2020 14:51
[2020-02-03 16:00] VITALS: BP 124/61
--- NOTE | 2020-02-03 16:53 | Neurology Progress Note ---
Interim History Interim History ROS Limited/Unobtainable: Yes Interim History remains somnolent, open eyes only Objective Physical Exam Last Vital Signs Date Time Temp Pulse Resp B/P (MAP) Pulse Ox O2 Delivery O2 Flow Rate FiO2 02/03/20 12:00 98.2 115 20 143/80 (101) 100 02/03/20 12:00 2.0 02/03/20 12:00 Nasal Cannula 02/02/20 19:58 28 Laboratory Tests Test 02/02/20 19:55 02/03/20 05:00 Vancomycin Level Trough 12.8 ug/mL (5.0-12.0) H White Blood Count 15.7 K/UL (4.8-10.8) H Red Blood Count 2.83 M/UL (4.20-5.40) L Hemoglobin 8.2 G/DL (12.0-16.0) L Hematocrit 24.5 % (37.0-47.0) L Mean Corpuscular Volume 87 FL (80-99) Mean Corpuscular Hemoglobin 29.0 PG (27.0-31.0) Mean Corpuscular Hemoglobin Concent 33.4 G/DL (32.0-36.0) Red Cell Distribution Width 14.6 % (11.6-14.8) Platelet Count 156 K/UL (150-450) Mean Platelet Volume 6.9 FL (6.5-10.1) Neutrophils (%) (Auto) 82.4 % (45.0-75.0) H Lymphocytes (%) (Auto) 8.8 % (20.0-45.0) L Monocytes (%) (Auto) 7.4 % (1.0-10.0) Eosinophils (%) (Auto) 0.5 % (0.0-3.0) Basophils (%) (Auto) 0.8 % (0.0-2.0) Sodium Level 151 MMOL/L (136-145) H Potassium Level 3.9 MMOL/L (3.5-5.1) Chloride Level 114 MMOL/L (98-107) H Carbon Dioxide Level 27 MMOL/L (21-32) Anion Gap 10 mmol/L (5-15) Blood Urea Nitrogen 34 mg/dL (7-18) H Creatinine 0.9 MG/DL (0.55-1.30) Estimat Glomerular Filtration Rate > 60 mL/min (>60) Glucose Level 116 MG/DL (74-106) H Calcium Level 9.0 MG/DL (8.5-10.1) Total Bilirubin 0.3 MG/DL (0.2-1.0) Aspartate Amino Transf (AST/SGOT) 36 U/L (15-37) Alanine Aminotransferase (ALT/SGPT) 37 U/L (12-78) Alkaline Phosphatase 146 U/L (46-116) H Total Protein 6.1 G/DL (6.4-8.2) L Albumin 1.4 G/DL (3.4-5.0) L Globulin 4.7 g/dL Albumin/Globulin Ratio 0.3 (1.0-2.7) L Head: normocophalic, atraumatic Neck: no rigidity EENT: benign Neurologic Exam Sensory: other - cc 35 min Objective lethargic, minimal withdraw in all 4 cc 35 min Impression/Recommendations Problems: (1) Septic shock (2) Anemia (3) Elevated troponin (4) Sepsis (5) Decubitus skin ulcer Status: stable Diagnostic Impression Acute encephalopathy in the context of sepsis Dementia, likely vascular Hx of strokes Monitor neuro exam Delirium precautions atb broad spectrum asa daily Luis Nash MD Feb 03, 2020 16:53
[2020-02-03] MEDS ORDERED: Tubing IV Secondary IV ONE (18:38)
--- NOTE | 2020-02-03 18:42 | Cardiology Progress Note ---
Assessment/Plan Status: stable Assessment/Plan Assessment/Plan Assessment/Plan: CVA Non verbal DM COPD CKD CHF GERD Pacemaker Hypotension Sepsis -Monitor on telemetry -IV fluids for hypotension -Hold blood pressure medications -Hold diuresis for now - no signs of volume overload -Echocardiogram normal LV function, PA pressure mild 38 mmHg, no significant valvular disease -Continue to trend troponin/EKG -If patient develops dynamic ECG changes will start heparin, no signs of ACS at this time -Empiric IV abx for elevated WBC, unlikey COVID due to lack of CXR findings and lack of leukopenia Subjective Cardiovascular: Reports: no symptoms Respiratory: Reports: no symptoms Gastrointestinal/Abdominal: Reports: no symptoms Genitourinary: Reports: no symptoms Subjective No acute events, Patient AAOx1 no distress tolerating tube feeds, WBC remains elevated but has come down, tachycardic Objective Last 24 Hour Vital Signs Date Time Temp Pulse Resp B/P (MAP) Pulse Ox O2 Delivery O2 Flow Rate FiO2 02/03/20 16:00 98.6 117 18 124/61 (82) 100 02/03/20 16:00 127 02/03/20 16:00 Nasal Cannula 2.0 02/03/20 16:00 2.0 02/03/20 12:00 98.2 115 20 143/80 (101) 100 02/03/20 12:00 2.0 02/03/20 12:00 117 02/03/20 12:00 Nasal Cannula 2.0 02/03/20 08:00 Nasal Cannula 2.0 02/03/20 08:00 98.1 126 18 124/88 (100) 100 02/03/20 08:00 2.0 02/03/20 08:00 126 02/03/20 04:00 98.3 110 18 142/58 (86) 98 02/03/20 04:00 Nasal Cannula 2.0 02/03/20 04:00 105 02/03/20 04:00 2.0 02/03/20 00:00 97.8 105 18 137/54 (81) 99 02/03/20 00:00 124 02/03/20 00:00 Nasal Cannula 2.0 02/03/20 00:00 2.0 02/02/20 20:00 Nasal Cannula 2.0 02/02/20 20:00 97.9 100 18 123/55 (77) 100 02/02/20:00 2.0 02/02/20 20:00 107 02/02/20 19:58 100 Nasal Cannula 2.0 28 02/02/20 19:58 107 20 100 Nasal Cannula 2.0 28 General Appearance: no apparent distress, alert EENT: PERRL/EOMI, normal ENT inspection, TMs normal, pharynx normal Neck: non-tender, normal alignment, supple, normal inspection, no JVD Rhythm: NSR Cardiovascular: normal peripheral pulses, normal rate, regular rhythm Respiratory/Chest: chest wall non-tender, lungs clear, normal breath sounds, no respiratory distress Abdomen: normal bowel sounds, non tender, soft, no organomegaly 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, no motor/sensory deficits Intake and Output 02/02/20 02/03/20 19:00 07:00 Intake Total 860 ml 852.5 ml Output Total 625 ml 500 ml Balance 235 ml 352.5 ml Free Water 200 ml 200 ml IV Total 112.5 ml Tube Feeding 660 ml 540 ml Output Urine Total 625 ml 500 ml # Bowel Movements 2 1 Laboratory Tests Test 02/02/20 19:55 02/03/20 05:00 Vancomycin Level Trough 12.8 ug/mL (5.0-12.0) H White Blood Count 15.7 K/UL (4.8-10.8) H Red Blood Count 2.83 M/UL (4.20-5.40) L Hemoglobin 8.2 G/DL (12.0-16.0) L Hematocrit 24.5 % (37.0-47.0) L Mean Corpuscular Volume 87 FL (80-99) Mean Corpuscular Hemoglobin 29.0 PG (27.0-31.0) Mean Corpuscular Hemoglobin Concent 33.4 G/DL (32.0-36.0) Red Cell Distribution Width 14.6 % (11.6-14.8) Platelet Count 156 K/UL (150-450) Mean Platelet Volume 6.9 FL (6.5-10.1) Neutrophils (%) (Auto) 82.4 % (45.0-75.0) H Lymphocytes (%) (Auto) 8.8 % (20.0-45.0) L Monocytes (%) (Auto) 7.4 % (1.0-10.0) Eosinophils (%) (Auto) 0.5 % (0.0-3.0) Basophils (%) (Auto) 0.8 % (0.0-2.0) Sodium Level 151 MMOL/L (136-145) H Potassium Level 3.9 MMOL/L (3.5-5.1) Chloride Level 114 MMOL/L (98-107) H Carbon Dioxide Level 27 MMOL/L (21-32) Anion Gap 10 mmol/L (5-15) Blood Urea Nitrogen 34 mg/dL (7-18) H Creatinine 0.9 MG/DL (0.55-1.30) Estimat Glomerular Filtration Rate > 60 mL/min (>60) Glucose Level 116 MG/DL (74-106) H Calcium Level 9.0 MG/DL (8.5-10.1) Total Bilirubin 0.3 MG/DL (0.2-1.0) Aspartate Amino Transf (AST/SGOT) 36 U/L (15-37) Alanine Aminotransferase (ALT/SGPT) 37 U/L (12-78) Alkaline Phosphatase 146 U/L (46-116) H Total Protein 6.1 G/DL (6.4-8.2) L Albumin 1.4 G/DL (3.4-5.0) L Globulin 4.7 g/dL Albumin/Globulin Ratio 0.3 (1.0-2.7) L Dennis Crain MD Feb 03, 2020 18:42
[2020-02-03 20:00] VITALS: BP 139/79
[2020-02-03] MEDS: Atorvastatin 20mg tab ORAL SCH (21:00)
[2020-02-04] VITALS: BP 136/77
[2020-02-04 04:00] VITALS: BP 132/80
[2020-02-04] MEDS: Levothyroxine 25mcg tab ORAL SCH (05:48)
[2020-02-04 06:11] LABS: BASOPHILS % (AUTO) 1.7 % (0.0-2.0); EOSINOPHILS % (AUTO) 1.1 % (0.0-3.0); HEMATOCRIT 25.1 % (37.0-47.0); HEMOGLOBIN 8.3 G/DL (12.0-16.0); LYMPHOCYTES % (AUTO) 10.6 % (20.0-45.0); MEAN CORPUSCULAR VOLUME 86 FL (80-99); NEUTROPHILS % (AUTO) 77.6 % (45.0-75.0); PLATELET COUNT 192 K/UL (150-450); RED BLOOD COUNT 2.93 M/UL (4.20-5.40); RED CELL DISTRIBUTION WIDTH 14.3 % (11.6-14.8); WHITE BLOOD COUNT 12.5 K/UL (4.8-10.8)
[2020-02-04 06:23] LABS: ALANINE AMINOTRANSFERASE 41 U/L (12-78); ALBUMIN 1.4 G/DL (3.4-5.0); ALBUMIN/GLOBULIN RATIO 0.3 (1.0-2.7); ALKALINE PHOSPHATASE 119 U/L (46-116); ANION GAP 8 mmol/L (5-15); ASPARTATE AMINO TRANSFERASE 37 U/L (15-37); BILIRUBIN,TOTAL 0.3 MG/DL (0.2-1.0); BLOOD UREA NITROGEN 31 mg/dL (7-18); CALCIUM 8.9 MG/DL (8.5-10.1); CARBON DIOXIDE 30 MMOL/L (21-32); CHLORIDE 109 MMOL/L (98-107); CREATININE 0.8 MG/DL (0.55-1.30); POTASSIUM 4.2 MMOL/L (3.5-5.1); SODIUM 147 MMOL/L (136-145)
[2020-02-04 08:00] VITALS: BP 140/80
[2020-02-04] MEDS: Heparin 5000 units/ml inj SUBQ SCH ×2 (08:24→20:28)
--- NOTE | 2020-02-04 10:23 | Nephrology Progress Note ---
Assessment/Plan Plan #hypernatremia due to free water deficit of close to 3L #sepsis #h/o CVA with hemiplegia #DM #COPD # hyperlipidemia #hypothyroidism # GERD # unspecified CHF, S/p PPM - increased free water flushes to [id number] - monitor bmp daily - continue abx - avoid nephrotoxins - strict I&Os - daily weights - monitor lytes Subjective ROS Limited/Unobtainable: Yes Subjective No acute events overnight sodium downtrending WBC downtrending Objective Objective Last 24 Hour Vital Signs Date Time Temp Pulse Resp B/P (MAP) Pulse Ox O2 Delivery O2 Flow Rate FiO2 02/04/20 08:00 105 02/04/20 08:00 Nasal Cannula 2.0 02/04/20 08:00 2.0 02/04/20 08:00 98.1 112 18 140/80 (100) 100 02/04/20 07:00 112 20 100 Nasal Cannula 2.0 28 02/04/20 07:00 100 Nasal Cannula 2.0 28 02/04/20 04:00 Nasal Cannula 2.0 02/04/20 04:00 98.2 113 18 132/80 (97) 100 02/04/20 04:00 2.0 02/04/20 03:25 105 02/04/20 00:00 Nasal Cannula 2.0 02/04/20 00:00 98.6 115 19 136/77 (96) 100 02/03/20 23:35 113 02/03/20 20:02 Nasal Cannula 2.0 02/03/20 20:00 2.0 02/03/20 20:00 98.8 113 20 139/79 (99) 98 02/03/20 20:00 97 Nasal Cannula 2.0 28 02/03/20 20:00 110 20 97 Nasal Cannula 2.0 28 02/03/20 19:39 126 02/03/20 16:00 98.6 117 18 124/61 (82) 100 02/03/20 16:00 127 02/03/20 16:00 Nasal Cannula 2.0 02/03/20 16:00 2.0 02/03/20 12:00 98.2 115 20 143/80 (101) 100 02/03/20 12:00 2.0 02/03/20 12:00 117 02/03/20 12:00 Nasal Cannula 2.0 Intake and Output 02/03/20 02/04/20 19:00 07:00 Intake Total 1837.5 ml 1250.000 ml Output Total 750 ml 700 ml Balance 1087.5 ml 550.000 ml Free Water 400 ml 400 ml IV Total 717.5 ml 130.000 ml Tube Feeding 720 ml 720 ml Output Urine Total 750 ml 600 ml Stool Total 100 ml # Voids 1 # Bowel Movements 2 2 Laboratory Tests 02/04/20 05:15: White Blood Count 12.5H, Red Blood Count 2.93L, Hemoglobin 8.3L, Hematocrit 25.1L, Mean Corpuscular Volume 86, Mean Corpuscular Hemoglobin 28.4, Mean Corpuscular Hemoglobin Concent 33.2, Red Cell Distribution Width 14.3, Platelet Count 192, Mean Platelet Volume 6.8, Neutrophils (%) (Auto) 77.6H, Lymphocytes ( %) (Auto) 10.6L, Monocytes (%) (Auto) 9.0, Eosinophils (%) (Auto) 1.1, Basophils (%) (Auto) 1.7, Erythrocyte Sedimentation Rate 130H, Sodium Level 147H , Potassium Level 4.2, Chloride Level 109H, Carbon Dioxide Level 30, Anion Gap 8 , Blood Urea Nitrogen 31H, Creatinine 0.8, Estimat Glomerular Filtration Rate > 60, Glucose Level 126H, Calcium Level 8.9, Total Bilirubin 0.3, Aspartate Amino Transf (AST/SGOT) 37, Alanine Aminotransferase (ALT/SGPT) 41, Alkaline Phosphatase 119H, C-Reactive Protein, Quantitative 12.9H, Total Protein 6.0L, Albumin 1.4L, Globulin 4.6, Albumin/Globulin Ratio 0.3L Height (Feet): 5 Height (Inches): 2.00 Weight (Pounds): 115 Objective General Appearance: NAD, otherwise awake, alert, confused Neck: normal alignment, supple CV: RRR Respiratory: lungs clear, normal breath sounds, no respiratory distress Abdomen: non tender, soft, +PEG tube, c/d/i Ext: Contracted bilaterally, multiple abrasions wrapped in bandages C/D/I Cathy Fuller M.D. Feb 04, 2020 10:23
[2020-02-04 12:00] VITALS: BP 139/76
--- NOTE | 2020-02-04 15:20 | Surgery Progress Note ---
Surgery Progress Note Subjective Additional Comments [place] cute events comfortable stable labs noted exam unchanged Objective Last 24 Hour Vital Signs Date Time Temp Pulse Resp B/P (MAP) Pulse Ox O2 Delivery O2 Flow Rate FiO2 02/04/20 12:00 Nasal Cannula 2.0 02/04/20 12:00 107 02/04/20 12:00 98.6 116 18 139/76 (97) 100 02/04/20 12:00 2.0 02/04/20 08:00 105 02/04/20 08:00 Nasal Cannula 2.0 02/04/20 08:00 2.0 02/04/20 08:00 98.1 112 18 140/80 (100) 100 02/04/20 07:00 112 20 100 Nasal Cannula 2.0 28 02/04/20 07:00 100 Nasal Cannula 2.0 28 02/04/20 04:00 Nasal Cannula 2.0 02/04/20 04:00 98.2 113 18 132/80 (97) 100 02/04/20 04:00 2.0 02/04/20 03:25 105 02/04/20 00:00 Nasal Cannula 2.0 02/04/20 00:00 98.6 115 19 136/77 (96) 100 02/03/20 23:35 113 02/03/20 20:02 Nasal Cannula 2.0 02/03/20 20:00 2.0 02/03/20 20:00 98.8 113 20 139/79 (99) 98 02/03/20 20:00 97 Nasal Cannula 2.0 28 02/03/20 20:00 110 20 97 Nasal Cannula 2.0 28 02/03/20 19:39 126 02/03/20 16:00 98.6 117 18 124/61 (82) 100 02/03/20 16:00 127 02/03/20 16:00 Nasal Cannula 2.0 02/03/20 16:00 2.0 I&O Intake and Output 02/03/20 02/04/20 19:00 07:00 Intake Total 1837.5 ml 1250.000 ml Output Total 750 ml 700 ml Balance 1087.5 ml 550.000 ml Free Water 400 ml 400 ml IV Total 717.5 ml 130.000 ml Tube Feeding 720 ml 720 ml Output Urine Total 750 ml 600 ml Stool Total 100 ml # Voids 1 # Bowel Movements 2 2 Dressing: other Wound: other Drains: other Cardiovascular: RSR Respiratory: decreased breath sounds Abdomen: soft, non-tender, present bowel sounds Extremities: no cyanosis Laboratory Tests Test 02/04/20 05:15 White Blood Count 12.5 K/UL (4.8-10.8) H Red Blood Count 2.93 M/UL (4.20-5.40) L Hemoglobin 8.3 G/DL (12.0-16.0) L Hematocrit 25.1 % (37.0-47.0) L Mean Corpuscular Volume 86 FL (80-99) Mean Corpuscular Hemoglobin 28.4 PG (27.0-31.0) Mean Corpuscular Hemoglobin Concent 33.2 G/DL (32.0-36.0) Red Cell Distribution Width 14.3 % (11.6-14.8) Platelet Count 192 K/UL (150-450) Mean Platelet Volume 6.8 FL (6.5-10.1) Neutrophils (%) (Auto) 77.6 % (45.0-75.0) H Lymphocytes (%) (Auto) 10.6 % (20.0-45.0) L Monocytes (%) (Auto) 9.0 % (1.0-10.0) Eosinophils (%) (Auto) 1.1 % (0.0-3.0) Basophils (%) (Auto) 1.7 % (0.0-2.0) Erythrocyte Sedimentation Rate 130 MM/HR (0-30) H Sodium Level 147 MMOL/L (136-145) H Potassium Level 4.2 MMOL/L (3.5-5.1) Chloride Level 109 MMOL/L (98-107) H Carbon Dioxide Level 30 MMOL/L (21-32) Anion Gap 8 mmol/L (5-15) Blood Urea Nitrogen 31 mg/dL (7-18) H Creatinine 0.8 MG/DL (0.55-1.30) Estimat Glomerular Filtration Rate > 60 mL/min (>60) Glucose Level 126 MG/DL (74-106) H Calcium Level 8.9 MG/DL (8.5-10.1) Total Bilirubin 0.3 MG/DL (0.2-1.0) Aspartate Amino Transf (AST/SGOT) 37 U/L (15-37) Alanine Aminotransferase (ALT/SGPT) 41 U/L (12-78) Alkaline Phosphatase 119 U/L (46-116) H C-Reactive Protein, Quantitative 12.9 mg/dL (0.00-0.90) H Total Protein 6.0 G/DL (6.4-8.2) L Albumin 1.4 G/DL (3.4-5.0) L Globulin 4.6 g/dL Albumin/Globulin Ratio 0.3 (1.0-2.7) L Plan Problems: (1) Septic shock Assessment & Plan: Patient presented to emergency department with sepsis hypotension tachycardia lactic acidosis leukocytosis. On IV antibiotics Labs improving IV hydration Continue tube feeds advance goal as tolerated Abdominal exam does elicit patient to retract a bit but she is not tender peritonitis or without rebound or significant guarding. exam improved Likely startle effect rather than intra-abdominal pathology will follow with serial exams continue with current care plan thank you for let me participate in patient's care (2) Decubitus skin ulcer Assessment & Plan: 84-year-old female presented on admission with multiple decubitus skin ulcers and skin concerns. Patient identified to have a unstageable sacral lower back decubitus ulcer, periwound maceration, area of necrotic eschar soft, no drainage, no abscess, no foul odor Pt presented on admission with contractures, Multiple Pressure injuries.open DTPI sacrum.Wound is open at sacrococcygeal area(40%), with soft necrotic base ( L)5.5cm x (W)4.5cm. Surrounding base of wound is maroon and indurated. Total area of sacral DTPI measures(L) 12.5cm x (W)15cm. Non-blanching erythema periwound.In addition several small partial thickness wounds noted along Perineum.` Areas of hyperpigmentation noted to L and R trochanteric. Full thickness wound R knee.(L)1.1cm x (W)1.5cm.1 Base of wound 90% pink granulation,10% slough noted in center of wound. Borders are macerated.small amt serous exudate. No odor noted. No erythema or fluctuance noted periwound. Non-blanching erythema with fluctuance R heel. Unstageable pressure injury R hallux. Base of wound is 100% soft necrosis. Edges adherent and dry.No odor or exudate noted.Surrounding darker skin tone without erythema or fluctuance(L)2.6cm x (W)3cm. DTPI R Ankle(L)0.9cm x (W)1.6cm. Base of wound is fluctuant, maroon with marginal erythema. Periwound without erythema or fluctuance. Unstageable pressure injury distal/lateral R foot. Base of wound 100% soft necrosis with surrounding non-blanching erythema with fluctuance.(L)2cm x (W) 0.9cm. Stable dry eschar medial/lateral R foot (L)0.4cm x (W)0.8cm. Stable dry eschar lateral L heel.(L)1.9cm x (W)2.2cm. No erythema or fluctuance periwound. Unstable pressure injury medial/lateral L foot. Base of wound is 100% necrotic but dry.(L)0.7cm x (W)0.8cm. Unstageable pressure injury distal/lateral L foot. Base of wound is 100% necrotic but dry. (L)1.2cm x (W)1.6cm.non-blanching erythema without fluctuance periwound. Non-blanching erythema without fluctuance lateral L 5th metatarsal.(L)1.5cm x (W )0.5cm. Open DTPI L Hallux.Base of wound has mixed necrosis and slough with surrounding base of wound maroon with fluctuance. Non-blanching erythema without elevation in skin temp,or fluctuance periwound. Tx.plan: Cleanse Sacral wound with Saline. Apply TheraHoney. Apply Moisture Barrier Paste Periwound. Cover with Optifoam drsg. Change Daily and prn. Swab R nee with Betadine. Cover with Optifoam drsg every 3 days and prn. Swab wounds R foot with Betadine. Cover each wound with Optifoam drsg. Change every 3 days and prn. Swab wounds L foot with Betadine. Cover each wound with Optifoam drsg. Change every 3 days and prn. Reposition at least every 2hours or as tolerated. Place pillow between knees. Off-load heels with Pillow. APM/ARIEL Mattress. DAILY ESTIMATED NEEDS: Needs based on Wounds, underweight 50kg 30-35 kcals/kg 4045-9630 total kcals 1.25-2 g protein/kg 63-100 g total protein 25-30 mL/kg 3029-1695 total fluid mLs NUTRITION DIAGNOSIS: Increased kcal and pro needs r/t underweight status and wound healing as evidenced by pt @85% [place] Body Weight w/ multiple wounds, eval pending, pt is PEG dep. CURRENT TF:Glucerna 1.5 @60ml x20 hrs ENTERAL NUTRITION RECOMMENDATIONS: Maintain current TF as tolerated: Glucerna 1.5 @60ml/hr x20 hrs to provide 1200ml, 1800 kcal, 99g pro, 911ml free H2o -> Monitor for hypoglycemia and need to change to non carb control formula -> Flush per MD. HOB over 30 degrees ADDITIONAL RECOMMENDATIONS: 1) On iso, per SNF pt is: 65 inches + 110#/50kg 2) Wound care: add MATT in 4oz H2O BID via GT F/up w/ WC eval 3) Maintain calibrated bed scale wts 4) Monitor for continued hypoglycemic events, need for D5 or TF change Luther Mercedes Feb 04, 2020 15:20
[2020-02-04 16:00] VITALS: BP 135/75
--- NOTE | 2020-02-04 17:36 | General Progress Note ---
Assessment/Plan Status: stable Assessment/Plan: 84 year old woman with history of CVA, hemiplegia, DM, COPD, CKD, hyperlipidemia , hypothyroidism, GERD, unspecified CHF, S/p PPM brought in from SNF with hypotension, found to be septic with leukocytosis and minimal pyuria #Sepsis #Citrobacter bacteremia #Hypotension #Elevated lactate, improved #Leukocytosis, resolving -continue inpatient level of care -cardiac monitoring -continue ceftriaxone -cont to hold anti-hypertensives -follow up COVID 19 -Droplet precautions for now -ID following #HTN #HLD #Uncspecifed CHF #Elevated BNP #S/p PPM -cont to hold BP meds as above, will resume if pressures going up -monitor closely for evidence of fluid overload -Cards eval appreciated #history of CVA #Likely underlying dementia #Possible acute metabolic encephalopathy due to sepsis -supportive care -monitor mentation -fall precautions, aspiration precautions -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 Subjective Date patient seen: Feb 04, 2020 Time patient seen: 17:34 ROS Limited/Unobtainable: Yes Allergies: Coded Allergies: No Known Allergies (Unverified , 01/30/20) Subjective Follow up for sepsis, Citrobacter bacteremia. No acute events overnight. WBC improving. Objective Last 24 Hour Vital Signs Date Time Temp Pulse Resp B/P (MAP) Pulse Ox O2 Delivery O2 Flow Rate FiO2 02/04/20 16:00 Nasal Cannula 2.0 02/04/20 16:00 2.0 02/04/20 16:00 99.5 109 18 135/75 (95) 100 02/04/20 12:00 Nasal Cannula 2.0 02/04/20 12:00 107 02/04/20 12:00 98.6 116 18 139/76 (97) 100 02/04/20 12:00 2.0 02/04/20 08:00 105 02/04/20 08:00 Nasal Cannula 2.0 02/04/20 08:00 2.0 02/04/20 08:00 98.1 112 18 140/80 (100) 100 02/04/20 07:00 112 20 100 Nasal Cannula 2.0 28 02/04/20 07:00 100 Nasal Cannula 2.0 28 02/04/20 04:00 Nasal Cannula 2.0 02/04/20 04:00 98.2 113 18 132/80 (97) 100 02/04/20 04:00 2.0 02/04/20 03:25 105 02/04/20 00:00 Nasal Cannula 2.0 02/04/20 00:00 98.6 115 19 136/77 (96) 100 02/03/20 23:35 113 02/03/20 20:02 Nasal Cannula 2.0 02/03/20 20:00 2.0 02/03/20 20:00 98.8 113 20 139/79 (99) 98 02/03/20 20:00 97 Nasal Cannula 2.0 28 02/03/20 20:00 110 20 97 Nasal Cannula 2.0 28 02/03/20 19:39 126 Intake and Output 02/03/20 02/04/20 19:00 07:00 Intake Total 1837.5 ml 1250.000 ml Output Total 750 ml 700 ml Balance 1087.5 ml 550.000 ml Free Water 400 ml 400 ml IV Total 717.5 ml 130.000 ml Tube Feeding 720 ml 720 ml Output Urine Total 750 ml 600 ml Stool Total 100 ml # Voids 1 # Bowel Movements 2 2 Laboratory Tests 02/04/20 05:15: White Blood Count 12.5H, Red Blood Count 2.93L, Hemoglobin 8.3L, Hematocrit 25.1L, Mean Corpuscular Volume 86, Mean Corpuscular Hemoglobin 28.4, Mean Corpuscular Hemoglobin Concent 33.2, Red Cell Distribution Width 14.3, Platelet Count 192, Mean Platelet Volume 6.8, Neutrophils (%) (Auto) 77.6H, Lymphocytes ( %) (Auto) 10.6L, Monocytes (%) (Auto) 9.0, Eosinophils (%) (Auto) 1.1, Basophils (%) (Auto) 1.7, Erythrocyte Sedimentation Rate 130H, Sodium Level 147H , Potassium Level 4.2, Chloride Level 109H, Carbon Dioxide Level 30, Anion Gap 8 , Blood Urea Nitrogen 31H, Creatinine 0.8, Estimat Glomerular Filtration Rate > 60, Glucose Level 126H, Calcium Level 8.9, Total Bilirubin 0.3, Aspartate Amino Transf (AST/SGOT) 37, Alanine Aminotransferase (ALT/SGPT) 41, Alkaline Phosphatase 119H, C-Reactive Protein, Quantitative 12.9H, Total Protein 6.0L, Albumin 1.4L, Globulin 4.6, Albumin/Globulin Ratio 0.3L Height (Feet): 5 Height (Inches): 2.00 Weight (Pounds): 115 General Appearance: no apparent distress, alert, confused Cardiovascular: normal rate, regular rhythm Respiratory/Chest: lungs clear, normal breath sounds Abdomen: non tender, soft Carmine Major MD Feb 04, 2020 17:36
--- NOTE | 2020-02-04 19:16 | Infectious Diseases Prog Note ---
Assessment/Plan Assessment/Plan A) 1) citrobacter bacteremia, ? uti, ? other source, severe leukocytosis, sepsis, diarrhea, ? c.diff. 2) being ruled out for covid-19 - low clinical suspicion 3) dm, hyperlipidemia, ? htn, hypothyroidism, cva, anemia, hemiplegia, ckd, gerd , copd, chf, ppm 4) allergies - nkda, fh-nc, sh-negative, mar noted, notes and records noted 5) d/w RN P) 1) change to ceftriaxone and flagyl - day # 5 abx 2) await covid-19 testing 3) consider CT abdomen and pelvis once covid-19 ruled out - rule other source of citrobacter bacteremia 4) monitor labs 5) check c.diff. for diarrhea 6) will f/u Subjective Constitutional: Denies: fever HEENT: Denies: congestion Respiratory: Denies: shortness of breath Cardiovascular: Denies: chest pain Gastrointestinal/Abdominal: Denies: nausea, vomiting, diarrhea Genitourinary: Reports: other - + john Neurologic: Denies: headache Psychiatric: Denies: depression Skin: Denies: rash Hematologic: Denies: bleeding Musculoskeletal: Denies: pain Allergies: Coded Allergies: No Known Allergies (Unverified , 01/30/20) Objective Vital Signs Last 24 Hour Vital Signs Date Time Temp Pulse Resp B/P (MAP) Pulse Ox O2 Delivery O2 Flow Rate FiO2 02/04/20 16:00 Nasal Cannula 2.0 02/04/20 16:00 2.0 02/04/20 16:00 99.5 109 18 135/75 (95) 100 02/04/20 16:00 113 02/04/20 12:00 Nasal Cannula 2.0 02/04/20 12:00 107 02/04/20 12:00 98.6 116 18 139/76 (97) 100 02/04/20 12:00 2.0 02/04/20 08:00 105 02/04/20 08:00 Nasal Cannula 2.0 02/04/20 08:00 2.0 02/04/20 08:00 98.1 112 18 140/80 (100) 100 02/04/20 07:00 112 20 100 Nasal Cannula 2.0 28 02/04/20 07:00 100 Nasal Cannula 2.0 28 02/04/20 04:00 Nasal Cannula 2.0 02/04/20 04:00 98.2 113 18 132/80 (97) 100 02/04/20 04:00 2.0 02/04/20 03:25 105 02/04/20 00:00 Nasal Cannula 2.0 02/04/20 00:00 98.6 115 19 136/77 (96) 100 02/03/20 23:35 113 02/03/20 20:02 Nasal Cannula 2.0 02/03/20 20:00 2.0 02/03/20 20:00 98.8 113 20 139/79 (99) 98 02/03/20 20:00 97 Nasal Cannula 2.0 28 02/03/20 20:00 110 20 97 Nasal Cannula 2.0 28 02/03/20 19:39 126 Height (Feet): 5 Height (Inches): 2.00 Weight (Pounds): 115 General Appearance: no acute distress HEENT: normocephalic, atraumatic, anicteric, mucous membranes moist Respiratory/Chest: lungs clear, normal breath sounds, no respiratory distress Cardiovascular: normal rate, regular rhythm, no gallop/murmur, no JVD Abdomen: normal bowel sounds, soft, non tender, no organomegaly, non distended Genitourinary: other - + john Extremities: no cyanosis Skin: no rash 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 The heart size is normal. There is a right chest biventricular pacemaker Impression: No acute process Microbiology Date/Time Source Procedure Growth Status 01/30/20 16:40 Blood Blood Culture - Final Citrobacter Koseri Complete 01/30/20 15:45 Nasal Nares MRSA Culture - Final NO METHICILLIN RESISTANT STAPH AUREUS... Complete 01/30/20 15:45 Rectum VRE Culture - Final NO VANCOMYCIN RESISTANT ENTEROCOCCUS ... Complete Laboratory Tests Test 02/04/20 05:15 White Blood Count 12.5 K/UL (4.8-10.8) H Red Blood Count 2.93 M/UL (4.20-5.40) L Hemoglobin 8.3 G/DL (12.0-16.0) L Hematocrit 25.1 % (37.0-47.0) L Mean Corpuscular Volume 86 FL (80-99) Mean Corpuscular Hemoglobin 28.4 PG (27.0-31.0) Mean Corpuscular Hemoglobin Concent 33.2 G/DL (32.0-36.0) Red Cell Distribution Width 14.3 % (11.6-14.8) Platelet Count 192 K/UL (150-450) Mean Platelet Volume 6.8 FL (6.5-10.1) Neutrophils (%) (Auto) 77.6 % (45.0-75.0) H Lymphocytes (%) (Auto) 10.6 % (20.0-45.0) L Monocytes (%) (Auto) 9.0 % (1.0-10.0) Eosinophils (%) (Auto) 1.1 % (0.0-3.0) Basophils (%) (Auto) 1.7 % (0.0-2.0) Erythrocyte Sedimentation Rate 130 MM/HR (0-30) H Sodium Level 147 MMOL/L (136-145) H Potassium Level 4.2 MMOL/L (3.5-5.1) Chloride Level 109 MMOL/L (98-107) H Carbon Dioxide Level 30 MMOL/L (21-32) Anion Gap 8 mmol/L (5-15) Blood Urea Nitrogen 31 mg/dL (7-18) H Creatinine 0.8 MG/DL (0.55-1.30) Estimat Glomerular Filtration Rate > 60 mL/min (>60) Glucose Level 126 MG/DL (74-106) H Calcium Level 8.9 MG/DL (8.5-10.1) Total Bilirubin 0.3 MG/DL (0.2-1.0) Aspartate Amino Transf (AST/SGOT) 37 U/L (15-37) Alanine Aminotransferase (ALT/SGPT) 41 U/L (12-78) Alkaline Phosphatase 119 U/L (46-116) H C-Reactive Protein, Quantitative 12.9 mg/dL (0.00-0.90) H Total Protein 6.0 G/DL (6.4-8.2) L Albumin 1.4 G/DL (3.4-5.0) L Globulin 4.6 g/dL Albumin/Globulin Ratio 0.3 (1.0-2.7) L Current Medications Medications (Trade) Dose Ordered Sig/Moreno Route PRN Reason Start Time Stop Time Status Last Admin Dose Admin Acetaminophen (Tylenol) 650 mg Q4H PRN ORAL Mild Pain (Pain Scale 1-3) 01/30/20 19:00 02/29/20 18:59 Atorvastatin Calcium (Lipitor) 40 mg BEDTIME ORAL 01/30/20 21:00 04/29/20 20:59 02/03/20 21:00 Dextrose (Dextrose 50%) 25 ml Q30M PRN IV Hypoglycemia 01/30/20 19:00 04/29/20 18:59 Dextrose (Dextrose 50%) 50 ml Q30M PRN IV Hypoglycemia 01/30/20 19:00 04/29/20 18:59 Diphenhydramine HCl (Benadryl) 25 mg Q6H PRN ORAL Itching/Pruritis 01/30/20 19:00 02/29/20 18:59 Docusate Sodium (Colace) 100 mg Q12H PRN ORAL Constipation 02/02/20 12:45 03/03/20 12:44 Heparin Sodium (Porcine) (Heparin 5000 units/ml) 5,000 units EVERY 12 HOURS SUBQ 01/30/20 21:00 03/15/20 20:59 02/03/20 21:02 Levothyroxine Sodium (Synthroid) 25 mcg DAILY@0630 ORAL 01/31/20 06:30 03/01/20 06:29 02/04/20 05:48 Ondansetron HCl (Zofran) 4 mg Q6H PRN IVP Nausea & Vomiting 01/30/20 19:00 02/29/20 18:59 Piperacillin Sod/ Tazobactam Sod 3.375 gm/Dextrose 100 ml @ 25 mls/hr EVERY 8 HOURS IVPB 02/02/20 22:00 02/07/20 21:59 02/04/20 13:01 Abiodun Jacobo MD Feb 04, 2020 19:16
[2020-02-04 20:00] VITALS: BP 131/70
[2020-02-04] MEDS: cefTRIAXone 1 GM in D5W 50 ML IVPB SCH (20:36)
[2020-02-04] MEDS: Atorvastatin 20mg tab ORAL SCH (20:37)
--- NOTE | 2020-02-04 20:43 | Neurology Progress Note ---
Interim History Interim History ROS Limited/Unobtainable: Yes Interim History open eyes, does not follow, wbc improved Objective Physical Exam Last Vital Signs Date Time Temp Pulse Resp B/P (MAP) Pulse Ox O2 Delivery O2 Flow Rate FiO2 02/04/20 20:00 2.0 02/04/20 20:00 Nasal Cannula 02/04/20 20:00 99.5 112 16 131/70 (90) 100 02/04/20 19:08 28 Laboratory Tests Test 02/04/20 05:15 White Blood Count 12.5 K/UL (4.8-10.8) H Red Blood Count 2.93 M/UL (4.20-5.40) L Hemoglobin 8.3 G/DL (12.0-16.0) L Hematocrit 25.1 % (37.0-47.0) L Mean Corpuscular Volume 86 FL (80-99) Mean Corpuscular Hemoglobin 28.4 PG (27.0-31.0) Mean Corpuscular Hemoglobin Concent 33.2 G/DL (32.0-36.0) Red Cell Distribution Width 14.3 % (11.6-14.8) Platelet Count 192 K/UL (150-450) Mean Platelet Volume 6.8 FL (6.5-10.1) Neutrophils (%) (Auto) 77.6 % (45.0-75.0) H Lymphocytes (%) (Auto) 10.6 % (20.0-45.0) L Monocytes (%) (Auto) 9.0 % (1.0-10.0) Eosinophils (%) (Auto) 1.1 % (0.0-3.0) Basophils (%) (Auto) 1.7 % (0.0-2.0) Erythrocyte Sedimentation Rate 130 MM/HR (0-30) H Sodium Level 147 MMOL/L (136-145) H Potassium Level 4.2 MMOL/L (3.5-5.1) Chloride Level 109 MMOL/L (98-107) H Carbon Dioxide Level 30 MMOL/L (21-32) Anion Gap 8 mmol/L (5-15) Blood Urea Nitrogen 31 mg/dL (7-18) H Creatinine 0.8 MG/DL (0.55-1.30) Estimat Glomerular Filtration Rate > 60 mL/min (>60) Glucose Level 126 MG/DL (74-106) H Calcium Level 8.9 MG/DL (8.5-10.1) Total Bilirubin 0.3 MG/DL (0.2-1.0) Aspartate Amino Transf (AST/SGOT) 37 U/L (15-37) Alanine Aminotransferase (ALT/SGPT) 41 U/L (12-78) Alkaline Phosphatase 119 U/L (46-116) H C-Reactive Protein, Quantitative 12.9 mg/dL (0.00-0.90) H Total Protein 6.0 G/DL (6.4-8.2) L Albumin 1.4 G/DL (3.4-5.0) L Globulin 4.6 g/dL Albumin/Globulin Ratio 0.3 (1.0-2.7) L Head: normocophalic, atraumatic Neck: no rigidity EENT: benign Neurologic Exam Sensory: other - cc 35 min Objective lethargic, minimal withdraw in all 4 cc 35 min Impression/Recommendations Problems: (1) Septic shock (2) Anemia (3) Elevated troponin (4) Sepsis (5) Decubitus skin ulcer Status: stable Diagnostic Impression Acute encephalopathy in the context of sepsis Dementia, likely vascular Hx of strokes Monitor neuro exam Delirium precautions atb broad spectrum asa daily Luis Nash MD Feb 04, 2020 20:43
[2020-02-05] VITALS: BP 131/72
[2020-02-05 03:59] VITALS: BP_SYST 110; BP_SYST 148; BP_DIAS 67; BP_DIAS 76
[2020-02-05 05:14] LABS: EOSINOPHILS % (AUTO) 1.1 % (0.0-3.0); HEMATOCRIT 25.5 % (37.0-47.0); HEMOGLOBIN 8.4 G/DL (12.0-16.0); LYMPHOCYTES % (AUTO) 10.5 % (20.0-45.0); MEAN CORPUSCULAR VOLUME 85 FL (80-99); NEUTROPHILS % (AUTO) 78.4 % (45.0-75.0); PLATELET COUNT 259 K/UL (150-450); RED BLOOD COUNT 3.01 M/UL (4.20-5.40); RED CELL DISTRIBUTION WIDTH 14.5 % (11.6-14.8); WHITE BLOOD COUNT 14.4 K/UL (4.8-10.8)
[2020-02-05 05:46] LABS: ALANINE AMINOTRANSFERASE 54 U/L (12-78); ALBUMIN 1.4 G/DL (3.4-5.0); ALBUMIN/GLOBULIN RATIO 0.3 (1.0-2.7); ALKALINE PHOSPHATASE 120 U/L (46-116); ANION GAP 9 mmol/L (5-15); ASPARTATE AMINO TRANSFERASE 46 U/L (15-37); BILIRUBIN,TOTAL 0.1 MG/DL (0.2-1.0); BLOOD UREA NITROGEN 27 mg/dL (7-18); CALCIUM 8.5 MG/DL (8.5-10.1); CARBON DIOXIDE 27 MMOL/L (21-32); CHLORIDE 108 MMOL/L (98-107); CREATININE 0.8 MG/DL (0.55-1.30); PHOSPHORUS 3.2 MG/DL (2.5-4.9); POTASSIUM 4.4 MMOL/L (3.5-5.1); SODIUM 144 MMOL/L (136-145)
[2020-02-05] MEDS: Levothyroxine 25mcg tab ORAL SCH (05:55)
[2020-02-05 08:00] VITALS: BP 143/82
[2020-02-05] MEDS: Heparin 5000 units/ml inj SUBQ SCH ×2 (08:46→20:42)
--- NOTE | 2020-02-05 10:29 | Nephrology Progress Note ---
Assessment/Plan Plan #hypernatremia due to free water deficit of close to 3L #sepsis #h/o CVA with hemiplegia #DM #COPD # hyperlipidemia #hypothyroidism # GERD # unspecified CHF, S/p PPM - increase free water flushes to [id number] - monitor bmp daily - continue abx - avoid nephrotoxins - strict I&Os - daily weights - monitor lytes Subjective Subjective No acute events overnight sodium downtrending WBC 14.4 Objective Objective Last 24 Hour Vital Signs Date Time Temp Pulse Resp B/P (MAP) Pulse Ox O2 Delivery O2 Flow Rate FiO2 02/05/20 08:00 97.9 105 22 143/82 (102) 100 02/05/20 08:00 2.0 02/05/20 08:00 Nasal Cannula 2.0 02/05/20 07:43 112 02/05/20 04:00 2.0 02/05/20 04:00 108 02/05/20 04:00 Nasal Cannula 2.0 02/05/20 03:59 98.2 108 20 148/76 (100) 100 02/05/20 00:00 113 02/05/20 00:00 Nasal Cannula 2.0 02/05/20 00:00 98.4 110 18 131/72 (91) 100 02/04/20 20:00 2.0 02/04/20 20:00 114 02/04/20 20:00 Nasal Cannula 2.0 02/04/20 20:00 99.5 112 16 131/70 (90) 100 02/04/20 19:08 97 Nasal Cannula 2.0 28 02/04/20 19:08 108 20 97 Nasal Cannula 2.0 28 02/04/20 16:00 Nasal Cannula 2.0 02/04/20 16:00 2.0 02/04/20 16:00 99.5 109 18 135/75 (95) 100 02/04/20 16:00 113 02/04/20 12:00 Nasal Cannula 2.0 02/04/20 12:00 107 02/04/20 12:00 98.6 116 18 139/76 (97) 100 02/04/20 12:00 2.0 Intake and Output 02/04/20 02/05/20 19:00 07:00 Intake Total 640 ml 990 ml Output Total 1000 ml 605 ml Balance -360 ml 385 ml Free Water 100 ml 200 ml IV Total 250 ml Tube Feeding 540 ml 540 ml Output Urine Total 800 ml 600 ml Stool Total 200 ml 5 ml # Voids 1 # Bowel Movements 3 3 Laboratory Tests 02/05/20 03:40: White Blood Count 14.4H, Red Blood Count 3.01L, Hemoglobin 8.4L, Hematocrit 25.5L, Mean Corpuscular Volume 85, Mean Corpuscular Hemoglobin 27.8, Mean Corpuscular Hemoglobin Concent 32.8, Red Cell Distribution Width 14.5, Platelet Count 259, Mean Platelet Volume 6.3L, Neutrophils (%) (Auto) 78.4H, Lymphocytes (%) (Auto) 10.5L, Monocytes (%) (Auto) 9.0, Eosinophils (%) (Auto) 1.1, Basophils (%) (Auto) 1.0, Sodium Level 144, Potassium Level 4.4, Chloride Level 108H, Carbon Dioxide Level 27, Anion Gap 9, Blood Urea Nitrogen 27H, Creatinine 0.8, Estimat Glomerular Filtration Rate > 60, Glucose Level 108H, Calcium Level 8.5, Phosphorus Level 3.2, Magnesium Level 1.9, Total Bilirubin 0.1L, Aspartate Amino Transf (AST/SGOT) 46H, Alanine Aminotransferase (ALT/SGPT) 54, Alkaline Phosphatase 120H, Total Protein 6.6, Albumin 1.4L, Globulin 5.2, Albumin/ Globulin Ratio 0.3L Height (Feet): 5 Height (Inches): 2.00 Weight (Pounds): 120 Objective General Appearance: NAD, otherwise awake, alert, confused Neck: normal alignment, supple CV: RRR Respiratory: lungs clear, normal breath sounds, no respiratory distress Abdomen: non tender, soft, +PEG tube, c/d/i Ext: Contracted bilaterally, multiple abrasions wrapped in bandages C/D/I Cathy Fuller M.D. Feb 05, 2020 10:29
--- NOTE | 2020-02-05 11:13 | General Progress Note ---
Assessment/Plan Status: stable Assessment/Plan: 84 year old woman with history of CVA, hemiplegia, DM, COPD, CKD, hyperlipidemia , hypothyroidism, GERD, unspecified CHF, S/p PPM brought in from SNF with hypotension, found to be septic with leukocytosis and minimal pyuria #Sepsis #Citrobacter bacteremia #Hypotension #Elevated lactate, improved #Leukocytosis, resolving -continue inpatient level of care -cardiac monitoring -cont to hold anti-hypertensives -follow up COVID 19 -Droplet precautions for now -ID following: cont. 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 Subjective Allergies: Coded Allergies: No Known Allergies (Unverified , 01/30/20) Subjective Follow up for sepsis, gram negative bacteremia. No acute events overnight. Patient aphasic/non-verbal. At b/l per nurse. Objective Last 24 Hour Vital Signs Date Time Temp Pulse Resp B/P (MAP) Pulse Ox O2 Delivery O2 Flow Rate FiO2 02/05/20 08:00 97.9 105 22 143/82 (102) 100 02/05/20 08:00 2.0 02/05/20 08:00 Nasal Cannula 2.0 02/05/20 07:43 112 02/05/20 04:00 2.0 02/05/20 04:00 108 02/05/20 04:00 Nasal Cannula 2.0 02/05/20 03:59 98.2 108 20 148/76 (100) 100 02/05/20 00:00 113 02/05/20 00:00 Nasal Cannula 2.0 02/05/20 00:00 98.4 110 18 131/72 (91) 100 02/04/20 20:00 2.0 02/04/20 20:00 114 02/04/20 20:00 Nasal Cannula 2.0 02/04/20 20:00 99.5 112 16 131/70 (90) 100 02/04/20 19:08 97 Nasal Cannula 2.0 28 02/04/20 19:08 108 20 97 Nasal Cannula 2.0 28 02/04/20 16:00 Nasal Cannula 2.0 02/04/20 16:00 2.0 02/04/20 16:00 99.5 109 18 135/75 (95) 100 02/04/20 16:00 113 02/04/20 12:00 Nasal Cannula 2.0 02/04/20 12:00 107 02/04/20 12:00 98.6 116 18 139/76 (97) 100 02/04/20 12:00 2.0 Intake and Output 02/04/20 02/05/20 19:00 07:00 Intake Total 640 ml 990 ml Output Total 1000 ml 605 ml Balance -360 ml 385 ml Free Water 100 ml 200 ml IV Total 250 ml Tube Feeding 540 ml 540 ml Output Urine Total 800 ml 600 ml Stool Total 200 ml 5 ml # Voids 1 # Bowel Movements 3 3 Laboratory Tests 02/05/20 03:40: White Blood Count 14.4H, Red Blood Count 3.01L, Hemoglobin 8.4L, Hematocrit 25.5L, Mean Corpuscular Volume 85, Mean Corpuscular Hemoglobin 27.8, Mean Corpuscular Hemoglobin Concent 32.8, Red Cell Distribution Width 14.5, Platelet Count 259, Mean Platelet Volume 6.3L, Neutrophils (%) (Auto) 78.4H, Lymphocytes (%) (Auto) 10.5L, Monocytes (%) (Auto) 9.0, Eosinophils (%) (Auto) 1.1, Basophils (%) (Auto) 1.0, Sodium Level 144, Potassium Level 4.4, Chloride Level 108H, Carbon Dioxide Level 27, Anion Gap 9, Blood Urea Nitrogen 27H, Creatinine 0.8, Estimat Glomerular Filtration Rate > 60, Glucose Level 108H, Calcium Level 8.5, Phosphorus Level 3.2, Magnesium Level 1.9, Total Bilirubin 0.1L, Aspartate Amino Transf (AST/SGOT) 46H, Alanine Aminotransferase (ALT/SGPT) 54, Alkaline Phosphatase 120H, Total Protein 6.6, Albumin 1.4L, Globulin 5.2, Albumin/ Globulin Ratio 0.3L Height (Feet): 5 Height (Inches): 2.00 Weight (Pounds): 120 Objective General Appearance: NAD, non-verbal, otherwise awake, alert Neck: normal alignment, supple CV: RRR Respiratory: lungs clear, normal breath sounds, no respiratory distress Abdomen: non tender, soft, +PEG tube, c/d/i Ext: Contracted bilaterally, multiple abrasions wrapped in bandages C/D/I Lorna Uribe M.D. Feb 05, 2020 11:13
[2020-02-05 12:00] VITALS: BP 132/75
--- NOTE | 2020-02-05 13:24 | Surgery Progress Note ---
Surgery Progress Note Subjective Additional Comments no acute events labs noted exam stable eyes open but not meaningful responses Objective Last 24 Hour Vital Signs Date Time Temp Pulse Resp B/P (MAP) Pulse Ox O2 Delivery O2 Flow Rate FiO2 02/05/20 12:00 2.0 02/05/20 12:00 Nasal Cannula 2.0 02/05/20 12:00 98.4 115 20 132/75 (94) 100 02/05/20 08:00 97.9 105 22 143/82 (102) 100 02/05/20 08:00 2.0 02/05/20 08:00 Nasal Cannula 2.0 02/05/20 07:43 112 02/05/20 04:00 2.0 02/05/20 04:00 108 02/05/20 04:00 Nasal Cannula 2.0 02/05/20 03:59 98.2 108 20 148/76 (100) 100 02/05/20 00:00 113 02/05/20 00:00 Nasal Cannula 2.0 02/05/20 00:00 98.4 110 18 131/72 (91) 100 02/04/20 20:00 2.0 02/04/20 20:00 114 02/04/20 20:00 Nasal Cannula 2.0 02/04/20 20:00 99.5 112 16 131/70 (90) 100 02/04/20 19:08 97 Nasal Cannula 2.0 28 02/04/20 19:08 108 20 97 Nasal Cannula 2.0 28 02/04/20 16:00 Nasal Cannula 2.0 02/04/20 16:00 2.0 02/04/20 16:00 99.5 109 18 135/75 (95) 100 02/04/20 16:00 113 I&O Intake and Output 02/04/20 02/05/20 19:00 07:00 Intake Total 640 ml 990 ml Output Total 1000 ml 605 ml Balance -360 ml 385 ml Free Water 100 ml 200 ml IV Total 250 ml Tube Feeding 540 ml 540 ml Output Urine Total 800 ml 600 ml Stool Total 200 ml 5 ml # Voids 1 # Bowel Movements 3 3 Dressing: other Wound: other Drains: other Cardiovascular: RSR Respiratory: decreased breath sounds Abdomen: soft, non-tender Extremities: no cyanosis Laboratory Tests Test 02/05/20 03:40 White Blood Count 14.4 K/UL (4.8-10.8) H Red Blood Count 3.01 M/UL (4.20-5.40) L Hemoglobin 8.4 G/DL (12.0-16.0) L Hematocrit 25.5 % (37.0-47.0) L Mean Corpuscular Volume 85 FL (80-99) Mean Corpuscular Hemoglobin 27.8 PG (27.0-31.0) Mean Corpuscular Hemoglobin Concent 32.8 G/DL (32.0-36.0) Red Cell Distribution Width 14.5 % (11.6-14.8) Platelet Count 259 K/UL (150-450) Mean Platelet Volume 6.3 FL (6.5-10.1) L Neutrophils (%) (Auto) 78.4 % (45.0-75.0) H Lymphocytes (%) (Auto) 10.5 % (20.0-45.0) L Monocytes (%) (Auto) 9.0 % (1.0-10.0) Eosinophils (%) (Auto) 1.1 % (0.0-3.0) Basophils (%) (Auto) 1.0 % (0.0-2.0) Sodium Level 144 MMOL/L (136-145) Potassium Level 4.4 MMOL/L (3.5-5.1) Chloride Level 108 MMOL/L (98-107) H Carbon Dioxide Level 27 MMOL/L (21-32) Anion Gap 9 mmol/L (5-15) Blood Urea Nitrogen 27 mg/dL (7-18) H Creatinine 0.8 MG/DL (0.55-1.30) Estimat Glomerular Filtration Rate > 60 mL/min (>60) Glucose Level 108 MG/DL (74-106) H Calcium Level 8.5 MG/DL (8.5-10.1) Phosphorus Level 3.2 MG/DL (2.5-4.9) Magnesium Level 1.9 MG/DL (1.8-2.4) Total Bilirubin 0.1 MG/DL (0.2-1.0) L Aspartate Amino Transf (AST/SGOT) 46 U/L (15-37) H Alanine Aminotransferase (ALT/SGPT) 54 U/L (12-78) Alkaline Phosphatase 120 U/L (46-116) H Total Protein 6.6 G/DL (6.4-8.2) Albumin 1.4 G/DL (3.4-5.0) L Globulin 5.2 g/dL Albumin/Globulin Ratio 0.3 (1.0-2.7) L Plan Problems: (1) Septic shock Assessment & Plan: Patient presented to emergency department with sepsis hypotension tachycardia lactic acidosis leukocytosis. On IV antibiotics Labs improving IV hydration Continue tube feeds advance goal as tolerated Abdominal exam does elicit patient to retract a bit but she is not tender peritonitis or without rebound or significant guarding. exam improved Likely startle effect rather than intra-abdominal pathology will follow with serial exams continue with current care plan thank you for let me participate in patient's care (2) Decubitus skin ulcer Assessment & Plan: 84-year-old female presented on admission with multiple decubitus skin ulcers and skin concerns. Patient identified to have a unstageable sacral lower back decubitus ulcer, periwound maceration, area of necrotic eschar soft, no drainage, no abscess, no foul odor Pt presented on admission with contractures, Multiple Pressure injuries.open DTPI sacrum.Wound is open at sacrococcygeal area(40%), with soft necrotic base ( L)5.5cm x (W)4.5cm. Surrounding base of wound is maroon and indurated. Total area of sacral DTPI measures(L) 12.5cm x (W)15cm. Non-blanching erythema periwound.In addition several small partial thickness wounds noted along Perineum.` Areas of hyperpigmentation noted to L and R trochanteric. Full thickness wound R knee.(L)1.1cm x (W)1.5cm.1 Base of wound 90% pink granulation,10% slough noted in center of wound. Borders are macerated.small amt serous exudate. No odor noted. No erythema or fluctuance noted periwound. Non-blanching erythema with fluctuance R heel. Unstageable pressure injury R hallux. Base of wound is 100% soft necrosis. Edges adherent and dry.No odor or exudate noted.Surrounding darker skin tone without erythema or fluctuance(L)2.6cm x (W)3cm. DTPI R Ankle(L)0.9cm x (W)1.6cm. Base of wound is fluctuant, maroon with marginal erythema. Periwound without erythema or fluctuance. Unstageable pressure injury distal/lateral R foot. Base of wound 100% soft necrosis with surrounding non-blanching erythema with fluctuance.(L)2cm x (W) 0.9cm. Stable dry eschar medial/lateral R foot (L)0.4cm x (W)0.8cm. Stable dry eschar lateral L heel.(L)1.9cm x (W)2.2cm. No erythema or fluctuance periwound. Unstable pressure injury medial/lateral L foot. Base of wound is 100% necrotic but dry.(L)0.7cm x (W)0.8cm. Unstageable pressure injury distal/lateral L foot. Base of wound is 100% necrotic but dry. (L)1.2cm x (W)1.6cm.non-blanching erythema without fluctuance periwound. Non-blanching erythema without fluctuance lateral L 5th metatarsal.(L)1.5cm x (W )0.5cm. Open DTPI L Hallux.Base of wound has mixed necrosis and slough with surrounding base of wound maroon with fluctuance. Non-blanching erythema without elevation in skin temp,or fluctuance periwound. Tx.plan: Cleanse Sacral wound with Saline. Apply TheraHoney. Apply Moisture Barrier Paste Periwound. Cover with Optifoam drsg. Change Daily and prn. Swab R nee with Betadine. Cover with Optifoam drsg every 3 days and prn. Swab wounds R foot with Betadine. Cover each wound with Optifoam drsg. Change every 3 days and prn. Swab wounds L foot with Betadine. Cover each wound with Optifoam drsg. Change every 3 days and prn. Reposition at least every 2hours or as tolerated. Place pillow between knees. Off-load heels with Pillow. APM/ARIEL Mattress. DAILY ESTIMATED NEEDS: Needs based on Wounds, underweight 50kg 30-35 kcals/kg 1418-8705 total kcals 1.25-2 g protein/kg 63-100 g total protein 25-30 mL/kg 0144-4416 total fluid mLs NUTRITION DIAGNOSIS: Increased kcal and pro needs r/t underweight status and wound healing as evidenced by pt @85% [place] Body Weight w/ multiple wounds, eval pending, pt is PEG dep. CURRENT TF:Glucerna 1.5 @60ml x20 hrs ENTERAL NUTRITION RECOMMENDATIONS: Maintain current TF as tolerated: Glucerna 1.5 @60ml/hr x20 hrs to provide 1200ml, 1800 kcal, 99g pro, 911ml free H2o -> Monitor for hypoglycemia and need to change to non carb control formula -> Flush per MD. HOB over 30 degrees ADDITIONAL RECOMMENDATIONS: 1) On iso, per SNF pt is: 65 inches + 110#/50kg 2) Wound care: add MATT in 4oz H2O BID via GT F/up w/ WC eval 3) Maintain calibrated bed scale wts 4) Monitor for continued hypoglycemic events, need for D5 or TF change Luther Mercedes Feb 05, 2020 13:24
[2020-02-05 16:00] VITALS: BP 138/77
--- NOTE | 2020-02-05 17:20 | Neurology Progress Note ---
Interim History Interim History ROS Limited/Unobtainable: Yes Interim History open eyes, non verbal Objective Physical Exam Last Vital Signs Date Time Temp Pulse Resp B/P (MAP) Pulse Ox O2 Delivery O2 Flow Rate FiO2 02/05/20 16:00 99.1 117 22 138/77 (97) 100 02/05/20 16:00 Nasal Cannula 2.0 02/04/20 19:08 28 Laboratory Tests Test 02/05/20 03:40 White Blood Count 14.4 K/UL (4.8-10.8) H Red Blood Count 3.01 M/UL (4.20-5.40) L Hemoglobin 8.4 G/DL (12.0-16.0) L Hematocrit 25.5 % (37.0-47.0) L Mean Corpuscular Volume 85 FL (80-99) Mean Corpuscular Hemoglobin 27.8 PG (27.0-31.0) Mean Corpuscular Hemoglobin Concent 32.8 G/DL (32.0-36.0) Red Cell Distribution Width 14.5 % (11.6-14.8) Platelet Count 259 K/UL (150-450) Mean Platelet Volume 6.3 FL (6.5-10.1) L Neutrophils (%) (Auto) 78.4 % (45.0-75.0) H Lymphocytes (%) (Auto) 10.5 % (20.0-45.0) L Monocytes (%) (Auto) 9.0 % (1.0-10.0) Eosinophils (%) (Auto) 1.1 % (0.0-3.0) Basophils (%) (Auto) 1.0 % (0.0-2.0) Sodium Level 144 MMOL/L (136-145) Potassium Level 4.4 MMOL/L (3.5-5.1) Chloride Level 108 MMOL/L (98-107) H Carbon Dioxide Level 27 MMOL/L (21-32) Anion Gap 9 mmol/L (5-15) Blood Urea Nitrogen 27 mg/dL (7-18) H Creatinine 0.8 MG/DL (0.55-1.30) Estimat Glomerular Filtration Rate > 60 mL/min (>60) Glucose Level 108 MG/DL (74-106) H Calcium Level 8.5 MG/DL (8.5-10.1) Phosphorus Level 3.2 MG/DL (2.5-4.9) Magnesium Level 1.9 MG/DL (1.8-2.4) Total Bilirubin 0.1 MG/DL (0.2-1.0) L Aspartate Amino Transf (AST/SGOT) 46 U/L (15-37) H Alanine Aminotransferase (ALT/SGPT) 54 U/L (12-78) Alkaline Phosphatase 120 U/L (46-116) H Total Protein 6.6 G/DL (6.4-8.2) Albumin 1.4 G/DL (3.4-5.0) L Globulin 5.2 g/dL Albumin/Globulin Ratio 0.3 (1.0-2.7) L Head: normocophalic, atraumatic Neck: no rigidity EENT: benign Neurologic Exam Sensory: other - cc 35 min Objective lethargic, minimal withdraw in all 4 cc 35 min Impression/Recommendations Problems: (1) Septic shock (2) Anemia (3) Elevated troponin (4) Sepsis (5) Decubitus skin ulcer Status: stable Diagnostic Impression Acute encephalopathy in the context of sepsis Dementia, likely vascular Hx of strokes Monitor neuro exam Delirium precautions atb broad spectrum asa daily Luis Nash MD Feb 05, 2020 17:20
[2020-02-05 20:00] VITALS: BP 143/72
[2020-02-05] MEDS: cefTRIAXone 1 GM in D5W 50 ML IVPB SCH (20:41)
[2020-02-05] MEDS: Atorvastatin 20mg tab ORAL SCH (20:41)
--- NOTE | 2020-02-05 21:34 | Cardiology Progress Note ---
Assessment/Plan Status: stable Assessment/Plan Assessment/Plan Assessment/Plan: CVA Non verbal DM COPD CKD CHF GERD Pacemaker Hypotension Sepsis -Monitor on telemetry -IV fluids for hypotension -Hold blood pressure medications -Hold diuresis for now - no signs of volume overload -Echocardiogram normal LV function, PA pressure mild 38 mmHg, no significant valvular disease -Continue to trend troponin/EKG -If patient develops dynamic ECG changes will start heparin, no signs of ACS at this time -Empiric IV abx for elevated WBC, unlikey COVID due to lack of CXR findings and lack of leukopenia Subjective Cardiovascular: Reports: no symptoms Respiratory: Reports: no symptoms Gastrointestinal/Abdominal: Reports: no symptoms Genitourinary: Reports: no symptoms Subjective No acute events, Patient AAOx1 no distress tolerating tube feeds, WBC has cone, tachycardic remains albeit mild, No shortness of breath or distress Objective Last 24 Hour Vital Signs Date Time Temp Pulse Resp B/P (MAP) Pulse Ox O2 Delivery O2 Flow Rate FiO2 02/05/20 20:03 98 Nasal Cannula 2.0 28 02/05/20 20:03 109 19 98 Nasal Cannula 2.0 28 02/05/20 20:00 Nasal Cannula 2.0 02/05/20 20:00 2.0 02/05/20 20:00 98.4 110 20 143/72 (95) 100 02/05/20 19:31 110 02/05/20 16:00 99.1 117 22 138/77 (97) 100 02/05/20 16:00 Nasal Cannula 2.0 02/05/20 16:00 2.0 02/05/20 15:44 111 02/05/20 12:00 2.0 02/05/20 12:00 Nasal Cannula 2.0 02/05/20 12:00 98.4 115 20 132/75 (94) 100 02/05/20 11:52 108 02/05/20 08:00 97.9 105 22 143/82 (102) 100 02/05/20 08:00 2.0 02/05/20 08:00 Nasal Cannula 2.0 02/05/20 07:43 112 02/05/20 04:00 2.0 02/05/20 04:00 108 02/05/20 04:00 Nasal Cannula 2.0 02/05/20 03:59 98.2 108 20 148/76 (100) 100 02/05/20 00:00 113 02/05/20 00:00 Nasal Cannula 2.0 02/05/20 00:00 98.4 110 18 131/72 (91) 100 General Appearance: no apparent distress, lethargic EENT: PERRL/EOMI, normal ENT inspection, TMs normal, pharynx normal Neck: non-tender, normal alignment, supple, normal inspection, no JVD Cardiovascular: normal peripheral pulses, normal rate, regular rhythm, regularly irregular Respiratory/Chest: chest wall non-tender, lungs clear, normal breath sounds, no respiratory distress, no accessory muscle use, respiratory distress Abdomen: normal bowel sounds, non tender, soft, no organomegaly Extremities: normal range of motion, non-tender, normal inspection, no calf tenderness, no swelling 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0) Mean Corpuscular Hemoglobin Concent 32.8 G/DL (32.0-36.0) Red Cell Distribution Width 14.5 % (11.6-14.8) Platelet Count 259 K/UL (150-450) Mean Platelet Volume 6.3 FL (6.5-10.1) L Neutrophils (%) (Auto) 78.4 % (45.0-75.0) H Lymphocytes (%) (Auto) 10.5 % (20.0-45.0) L Monocytes (%) (Auto) 9.0 % (1.0-10.0) Eosinophils (%) (Auto) 1.1 % (0.0-3.0) Basophils (%) (Auto) 1.0 % (0.0-2.0) Sodium Level 144 MMOL/L (136-145) Potassium Level 4.4 MMOL/L (3.5-5.1) Chloride Level 108 MMOL/L (98-107) H Carbon Dioxide Level 27 MMOL/L (21-32) Anion Gap 9 mmol/L (5-15) Blood Urea Nitrogen 27 mg/dL (7-18) H Creatinine 0.8 MG/DL (0.55-1.30) Estimat Glomerular Filtration Rate > 60 mL/min (>60) Glucose Level 108 MG/DL (74-106) H Calcium Level 8.5 MG/DL (8.5-10.1) Phosphorus Level 3.2 MG/DL (2.5-4.9) Magnesium Level 1.9 MG/DL (1.8-2.4) Total Bilirubin 0.1 MG/DL (0.2-1.0) L Aspartate Amino Transf (AST/SGOT) 46 U/L (15-37) H Alanine Aminotransferase (ALT/SGPT) 54 U/L (12-78) Alkaline Phosphatase 120 U/L (46-116) H Total Protein 6.6 G/DL (6.4-8.2) Albumin 1.4 G/DL (3.4-5.0) L Globulin 5.2 g/dL Albumin/Globulin Ratio 0.3 (1.0-2.7) L Microbiology Date/Time Source Procedure Growth Status 02/03/20 04:15 Blood Blood Culture - Preliminary NO GROWTH AFTER 24 HOURS Resulted 02/04/20 19:00 Stool Clostridium difficile Toxin Assay - Final Complete FilsoDennis fletcher MD Feb 05, 2020 21:34
[2020-02-06] VITALS: BP 138/69
[2020-02-06 04:00] VITALS: BP 139/74
[2020-02-06 05:17] LABS: BASOPHILS % (AUTO) 0.7 % (0.0-2.0); EOSINOPHILS % (AUTO) 0.7 % (0.0-3.0); HEMATOCRIT 24.4 % (37.0-47.0); LYMPHOCYTES % (AUTO) 9.5 % (20.0-45.0); MEAN CORPUSCULAR VOLUME 85 FL (80-99); MONOCYTES % (AUTO) 6.7 % (1.0-10.0); NEUTROPHILS % (AUTO) 82.4 % (45.0-75.0); PLATELET COUNT 331 K/UL (150-450); RED BLOOD COUNT 2.87 M/UL (4.20-5.40); RED CELL DISTRIBUTION WIDTH 14.6 % (11.6-14.8); WHITE BLOOD COUNT 14.6 K/UL (4.8-10.8)
[2020-02-06 05:40] LABS: ALANINE AMINOTRANSFERASE 43 U/L (12-78); ALBUMIN 1.4 G/DL (3.4-5.0); ALBUMIN/GLOBULIN RATIO 0.3 (1.0-2.7); ALKALINE PHOSPHATASE 108 U/L (46-116); ANION GAP 5 mmol/L (5-15); ASPARTATE AMINO TRANSFERASE 38 U/L (15-37); BILIRUBIN,TOTAL 0.2 MG/DL (0.2-1.0); BLOOD UREA NITROGEN 34 mg/dL (7-18); CALCIUM 8.9 MG/DL (8.5-10.1); CARBON DIOXIDE 30 MMOL/L (21-32); CHLORIDE 109 MMOL/L (98-107); CREATININE 0.8 MG/DL (0.55-1.30); POTASSIUM 4.7 MMOL/L (3.5-5.1); SODIUM 144 MMOL/L (136-145)
[2020-02-06] MEDS: Levothyroxine 25mcg tab ORAL SCH (06:01)
[2020-02-06 08:00] VITALS: BP 123/69
[2020-02-06] MEDS: Heparin 5000 units/ml inj SUBQ SCH ×2 (08:03→20:18)
--- NOTE | 2020-02-06 09:15 | General Progress Note ---
Assessment/Plan Status: stable Assessment/Plan: 84 year old woman with history of CVA, hemiplegia, DM, COPD, CKD, hyperlipidemia , hypothyroidism, GERD, unspecified CHF, S/p PPM brought in from SNF with hypotension, found to be septic with leukocytosis and minimal pyuria #Sepsis #Citrobacter bacteremia #Hypotension #Elevated lactate, improved #Leukocytosis remains elevated #diarrhea -continue inpatient level of care -cardiac monitoring -suspect intraabdominal source -c diff negative -start imodium -cont to hold anti-hypertensives -follow up COVID 19 -Droplet precautions for now -ID following: cont. CTX, flagyl for possible GI source, if COVID negative, will obtain ct abd/pelvis #HTN #HLD #Uncspecifed CHF #Elevated BNP #S/p PPM -cont to hold BP meds as above, will resume if pressures going up -monitor closely for evidence of fluid overload -Echo w/normal EF -Cards eval appreciated #Hypernatremia - resolved -FWF at 200 cc q6 hr -Nephro following, appreciate recs #history of CVA #Likely underlying dementia #Possible acute metabolic encephalopathy due to sepsis -supportive care -monitor mentation -fall precautions, aspiration precautions -PT/OT/TRANSIT PLANNING DIRECTOR -Frequent orienting -Neurology following: recs appreciated #Unspecified CKD -monitor renal function #Hypothyroidism -cont levothyroxine I spent 35 minutes on this patient's case, and >50% was dedicated to counseling and/or care coordination. Subjective Allergies: Coded Allergies: No Known Allergies (Unverified , 01/30/20) Subjective Follow up for sepsis, gram negative bacteremia. No acute events overnight. Patient aphasic/non-verbal. Pt still w/loose stools otherwise at b/l per nurse. Objective Last 24 Hour Vital Signs Date Time Temp Pulse Resp B/P (MAP) Pulse Ox O2 Delivery O2 Flow Rate FiO2 02/06/20 08:00 97.7 114 18 123/69 (87) 100 02/06/20 07:26 100 Nasal Cannula 2.0 28 02/06/20 07:25 114 18 100 Nasal Cannula 2.0 28 02/06/20 04:00 4.0 02/06/20 04:00 98.0 116 18 139/74 (95) 100 02/06/20 04:00 Simple Mask 4.0 02/06/20 03:40 114 02/06/20 00:00 98.1 115 18 138/69 (92) 100 02/06/20 00:00 2.0 02/06/20 00:00 Simple Mask 4.0 02/05/20 23:27 115 02/05/20 20:03 98 Nasal Cannula 2.0 28 02/05/20 20:03 109 19 98 Nasal Cannula 2.0 28 02/05/20 20:00 Nasal Cannula 2.0 02/05/20 20:00 2.0 02/05/20 20:00 98.4 110 20 143/72 (95) 100 02/05/20 19:31 110 02/05/20 16:00 99.1 117 22 138/77 (97) 100 02/05/20 16:00 Nasal Cannula 2.0 02/05/20 16:00 2.0 02/05/20 15:44 111 02/05/20 12:00 2.0 02/05/20 12:00 Nasal Cannula 2.0 02/05/20 12:00 98.4 115 20 132/75 (94) 100 02/05/20 11:52 108 Intake and Output 02/05/20 02/06/20 19:00 07:00 Intake Total 1220 ml 1250 ml Output Total 900 ml 725 ml Balance 320 ml 525 ml Free Water 400 ml 400 ml IV Total 100 ml 250 ml Tube Feeding 720 ml 600 ml Output Urine Total 700 ml 525 ml Stool Total 200 ml 200 ml Laboratory Tests 02/06/20 04:40: White Blood Count 14.6H, Red Blood Count 2.87L, Hemoglobin 8.0L, Hematocrit 24.4L, Mean Corpuscular Volume 85, Mean Corpuscular Hemoglobin 28.0, Mean Corpuscular Hemoglobin Concent 32.9, Red Cell Distribution Width 14.6, Platelet Count 331, Mean Platelet Volume 6.2L, Neutrophils (%) (Auto) 82.4H, Lymphocytes (%) (Auto) 9.5L, Monocytes (%) (Auto) 6.7, Eosinophils (%) (Auto) 0.7, Basophils (%) (Auto) 0.7, Sodium Level 144, Potassium Level 4.7, Chloride Level 109H, Carbon Dioxide Level 30, Anion Gap 5, Blood Urea Nitrogen 34H, Creatinine 0.8, Estimat Glomerular Filtration Rate > 60, Glucose Level 150H, Calcium Level 8.9, Magnesium Level 1.9, Total Bilirubin 0.2, Aspartate Amino Transf (AST/SGOT ) 38H, Alanine Aminotransferase (ALT/SGPT) 43, Alkaline Phosphatase 108, Total Protein 6.2L, Albumin 1.4L, Globulin 4.8, Albumin/Globulin Ratio 0.3L Height (Feet): 5 Height (Inches): 2.00 Weight (Pounds): 128 Objective General Appearance: NAD, non-verbal, otherwise awake, alert Neck: normal alignment, supple CV: RRR Respiratory: lungs clear, normal breath sounds, no respiratory distress Abdomen: non tender, soft, +PEG tube, c/d/i Ext: Contracted bilaterally, multiple abrasions wrapped in bandages C/D/I Lorna Uribe M.D. Feb 06, 2020 09:15
--- NOTE | 2020-02-06 11:40 | Surgery Progress Note ---
Surgery Progress Note Subjective Additional Comments no acute events labs reviewed exam stable Objective Last 24 Hour Vital Signs Date Time Temp Pulse Resp B/P (MAP) Pulse Ox O2 Delivery O2 Flow Rate FiO2 02/06/20 08:00 97.7 114 18 123/69 (87) 100 02/06/20 08:00 2.0 02/06/20 08:00 Nasal Cannula 2.0 02/06/20 08:00 116 02/06/20 07:26 100 Nasal Cannula 2.0 28 02/06/20 07:25 114 18 100 Nasal Cannula 2.0 28 02/06/20 04:00 4.0 02/06/20 04:00 98.0 116 18 139/74 (95) 100 02/06/20 04:00 Simple Mask 4.0 02/06/20 03:40 114 02/06/20 00:00 98.1 115 18 138/69 (92) 100 02/06/20 00:00 2.0 02/06/20 00:00 Simple Mask 4.0 02/05/20 23:27 115 02/05/20 20:03 98 Nasal Cannula 2.0 28 02/05/20 20:03 109 19 98 Nasal Cannula 2.0 28 02/05/20 20:00 Nasal Cannula 2.0 02/05/20 20:00 2.0 02/05/20 20:00 98.4 110 20 143/72 (95) 100 02/05/20 19:31 110 02/05/20 16:00 99.1 117 22 138/77 (97) 100 02/05/20 16:00 Nasal Cannula 2.0 02/05/20 16:00 2.0 02/05/20 15:44 111 02/05/20 12:00 2.0 02/05/20 12:00 Nasal Cannula 2.0 02/05/20 12:00 98.4 115 20 132/75 (94) 100 02/05/20 11:52 108 I&O Intake and Output 02/05/20 02/06/20 19:00 07:00 Intake Total 1220 ml 1250 ml Output Total 900 ml 725 ml Balance 320 ml 525 ml Free Water 400 ml 400 ml IV Total 100 ml 250 ml Tube Feeding 720 ml 600 ml Output Urine Total 700 ml 525 ml Stool Total 200 ml 200 ml Dressing: saturated Wound: other Drains: other Cardiovascular: RSR Respiratory: decreased breath sounds Abdomen: soft, non-tender, present bowel sounds Extremities: no cyanosis Laboratory Tests Test 02/06/20 04:40 White Blood Count 14.6 K/UL (4.8-10.8) H Red Blood Count 2.87 M/UL (4.20-5.40) L Hemoglobin 8.0 G/DL (12.0-16.0) L Hematocrit 24.4 % (37.0-47.0) L Mean Corpuscular Volume 85 FL (80-99) Mean Corpuscular Hemoglobin 28.0 PG (27.0-31.0) Mean Corpuscular Hemoglobin Concent 32.9 G/DL (32.0-36.0) Red Cell Distribution Width 14.6 % (11.6-14.8) Platelet Count 331 K/UL (150-450) Mean Platelet Volume 6.2 FL (6.5-10.1) L Neutrophils (%) (Auto) 82.4 % (45.0-75.0) H Lymphocytes (%) (Auto) 9.5 % (20.0-45.0) L Monocytes (%) (Auto) 6.7 % (1.0-10.0) Eosinophils (%) (Auto) 0.7 % (0.0-3.0) Basophils (%) (Auto) 0.7 % (0.0-2.0) Sodium Level 144 MMOL/L (136-145) Potassium Level 4.7 MMOL/L (3.5-5.1) Chloride Level 109 MMOL/L (98-107) H Carbon Dioxide Level 30 MMOL/L (21-32) Anion Gap 5 mmol/L (5-15) Blood Urea Nitrogen 34 mg/dL (7-18) H Creatinine 0.8 MG/DL (0.55-1.30) Estimat Glomerular Filtration Rate > 60 mL/min (>60) Glucose Level 150 MG/DL (74-106) H Calcium Level 8.9 MG/DL (8.5-10.1) Magnesium Level 1.9 MG/DL (1.8-2.4) Total Bilirubin 0.2 MG/DL (0.2-1.0) Aspartate Amino Transf (AST/SGOT) 38 U/L (15-37) H Alanine Aminotransferase (ALT/SGPT) 43 U/L (12-78) Alkaline Phosphatase 108 U/L (46-116) Total Protein 6.2 G/DL (6.4-8.2) L Albumin 1.4 G/DL (3.4-5.0) L Globulin 4.8 g/dL Albumin/Globulin Ratio 0.3 (1.0-2.7) L Plan Problems: (1) Septic shock Assessment & Plan: Patient presented to emergency department with sepsis hypotension tachycardia lactic acidosis leukocytosis. On IV antibiotics Labs improving IV hydration Continue tube feeds advance goal as tolerated Abdominal exam does elicit patient to retract a bit but she is not tender peritonitis or without rebound or significant guarding. exam improved Likely startle effect rather than intra-abdominal pathology will follow with serial exams continue with current care plan thank you for let me participate in patient's care (2) Decubitus skin ulcer Assessment & Plan: 84-year-old female presented on admission with multiple decubitus skin ulcers and skin concerns. Patient identified to have a unstageable sacral lower back decubitus ulcer, periwound maceration, area of necrotic eschar soft, no drainage, no abscess, no foul odor Pt presented on admission with contractures, Multiple Pressure injuries.open DTPI sacrum.Wound is open at sacrococcygeal area(40%), with soft necrotic base ( L)5.5cm x (W)4.5cm. Surrounding base of wound is maroon and indurated. Total area of sacral DTPI measures(L) 12.5cm x (W)15cm. Non-blanching erythema periwound.In addition several small partial thickness wounds noted along Perineum.` Areas of hyperpigmentation noted to L and R trochanteric. Full thickness wound R knee.(L)1.1cm x (W)1.5cm.1 Base of wound 90% pink granulation,10% slough noted in center of wound. Borders are macerated.small amt serous exudate. No odor noted. No erythema or fluctuance noted periwound. Non-blanching erythema with fluctuance R heel. Unstageable pressure injury R hallux. Base of wound is 100% soft necrosis. Edges adherent and dry.No odor or exudate noted.Surrounding darker skin tone without erythema or fluctuance(L)2.6cm x (W)3cm. DTPI R Ankle(L)0.9cm x (W)1.6cm. Base of wound is fluctuant, maroon with marginal erythema. Periwound without erythema or fluctuance. Unstageable pressure injury distal/lateral R foot. Base of wound 100% soft necrosis with surrounding non-blanching erythema with fluctuance.(L)2cm x (W) 0.9cm. Stable dry eschar medial/lateral R foot (L)0.4cm x (W)0.8cm. Stable dry eschar lateral L heel.(L)1.9cm x (W)2.2cm. No erythema or fluctuance periwound. Unstable pressure injury medial/lateral L foot. Base of wound is 100% necrotic but dry.(L)0.7cm x (W)0.8cm. Unstageable pressure injury distal/lateral L foot. Base of wound is 100% necrotic but dry. (L)1.2cm x (W)1.6cm.non-blanching erythema without fluctuance periwound. Non-blanching erythema without fluctuance lateral L 5th metatarsal.(L)1.5cm x (W )0.5cm. Open DTPI L Hallux.Base of wound has mixed necrosis and slough with surrounding base of wound maroon with fluctuance. Non-blanching erythema without elevation in skin temp,or fluctuance periwound. Tx.plan: Cleanse Sacral wound with Saline. Apply TheraHoney. Apply Moisture Barrier Paste Periwound. Cover with Optifoam drsg. Change Daily and prn. Swab R nee with Betadine. Cover with Optifoam drsg every 3 days and prn. Swab wounds R foot with Betadine. Cover each wound with Optifoam drsg. Change every 3 days and prn. Swab wounds L foot with Betadine. Cover each wound with Optifoam drsg. Change every 3 days and prn. Reposition at least every 2hours or as tolerated. Place pillow between knees. Off-load heels with Pillow. APM/ARIEL Mattress. DAILY ESTIMATED NEEDS: Needs based on Wounds, underweight 50kg 30-35 kcals/kg 8735-2959 total kcals 1.25-2 g protein/kg 63-100 g total protein 25-30 mL/kg 9337-9584 total fluid mLs NUTRITION DIAGNOSIS: Increased kcal and pro needs r/t underweight status and wound healing as evidenced by pt @85% [place] Body Weight w/ multiple wounds, eval pending, pt is PEG dep. CURRENT TF:Glucerna 1.5 @60ml x20 hrs ENTERAL NUTRITION RECOMMENDATIONS: Maintain current TF as tolerated: Glucerna 1.5 @60ml/hr x20 hrs to provide 1200ml, 1800 kcal, 99g pro, 911ml free H2o -> Monitor for hypoglycemia and need to change to non carb control formula -> Flush per MD. HOB over 30 degrees ADDITIONAL RECOMMENDATIONS: 1) On iso, per SNF pt is: 65 inches + 110#/50kg 2) Wound care: add MATT in 4oz H2O BID via GT F/up w/ WC eval 3) Maintain calibrated bed scale wts 4) Monitor for continued hypoglycemic events, need for D5 or TF change Luther Mercedes Feb 06, 2020 11:40
[2020-02-06 12:00] VITALS: BP 121/72
--- NOTE | 2020-02-06 13:06 | Nephrology Progress Note ---
Assessment/Plan Plan #hypernatremia due to free water deficit of close to 3L #sepsis #h/o CVA with hemiplegia #DM #COPD # hyperlipidemia #hypothyroidism # GERD # unspecified CHF, S/p PPM - increased free water flushes to [id number] - monitor bmp daily - continue abx - avoid nephrotoxins - strict I&Os - daily weights - monitor lytes Subjective Subjective No acute events overnight continues to have loose stools labs reviewed Objective Objective Last 24 Hour Vital Signs Date Time Temp Pulse Resp B/P (MAP) Pulse Ox O2 Delivery O2 Flow Rate FiO2 02/06/20 12:00 2.0 02/06/20 12:00 Nasal Cannula 2.0 02/06/20 08:00 97.7 114 18 123/69 (87) 100 02/06/20 08:00 2.0 02/06/20 08:00 Nasal Cannula 2.0 02/06/20 08:00 116 02/06/20 07:26 100 Nasal Cannula 2.0 28 02/06/20 07:25 114 18 100 Nasal Cannula 2.0 28 02/06/20 04:00 4.0 02/06/20 04:00 98.0 116 18 139/74 (95) 100 02/06/20 04:00 Simple Mask 4.0 02/06/20 03:40 114 02/06/20 00:00 98.1 115 18 138/69 (92) 100 02/06/20 00:00 2.0 02/06/20 00:00 Simple Mask 4.0 02/05/20 23:27 115 02/05/20 20:03 98 Nasal Cannula 2.0 28 02/05/20 20:03 109 19 98 Nasal Cannula 2.0 28 02/05/20 20:00 Nasal Cannula 2.0 02/05/20 20:00 2.0 02/05/20 20:00 98.4 110 20 143/72 (95) 100 02/05/20 19:31 110 02/05/20 16:00 99.1 117 22 138/77 (97) 100 02/05/20 16:00 Nasal Cannula 2.0 02/05/20 16:00 2.0 02/05/20 15:44 111 Intake and Output 02/05/20 02/06/20 19:00 07:00 Intake Total 1220 ml 1250 ml Output Total 900 ml 725 ml Balance 320 ml 525 ml Free Water 400 ml 400 ml IV Total 100 ml 250 ml Tube Feeding 720 ml 600 ml Output Urine Total 700 ml 525 ml Stool Total 200 ml 200 ml Laboratory Tests 02/06/20 04:40: White Blood Count 14.6H, Red Blood Count 2.87L, Hemoglobin 8.0L, Hematocrit 24.4L, Mean Corpuscular Volume 85, Mean Corpuscular Hemoglobin 28.0, Mean Corpuscular Hemoglobin Concent 32.9, Red Cell Distribution Width 14.6, Platelet Count 331, Mean Platelet Volume 6.2L, Neutrophils (%) (Auto) 82.4H, Lymphocytes (%) (Auto) 9.5L, Monocytes (%) (Auto) 6.7, Eosinophils (%) (Auto) 0.7, Basophils (%) (Auto) 0.7, Sodium Level 144, Potassium Level 4.7, Chloride Level 109H, Carbon Dioxide Level 30, Anion Gap 5, Blood Urea Nitrogen 34H, Creatinine 0.8, Estimat Glomerular Filtration Rate > 60, Glucose Level 150H, Calcium Level 8.9, Magnesium Level 1.9, Total Bilirubin 0.2, Aspartate Amino Transf (AST/SGOT ) 38H, Alanine Aminotransferase (ALT/SGPT) 43, Alkaline Phosphatase 108, Total Protein 6.2L, Albumin 1.4L, Globulin 4.8, Albumin/Globulin Ratio 0.3L Height (Feet): 5 Height (Inches): 2.00 Weight (Pounds): 128 Objective General Appearance: NAD, otherwise awake, alert, confused Neck: normal alignment, supple CV: RRR Respiratory: lungs clear, normal breath sounds, no respiratory distress Abdomen: non tender, soft, +PEG tube, c/d/i Ext: Contracted bilaterally, multiple abrasions wrapped in bandages C/D/I Cathy Fuller M.D. Feb 06, 2020 13:06
[2020-02-06 16:00] VITALS: BP 124/68
--- NOTE | 2020-02-06 17:04 | Infectious Diseases Prog Note ---
Assessment/Plan Assessment/Plan A) 1) citrobacter bacteremia, ? uti, ? other source, severe leukocytosis, sepsis, diarrhea, ? c.diff. 2) being ruled out for covid-19 - low clinical suspicion, results pending 3) dm, hyperlipidemia, ? htn, hypothyroidism, cva, anemia, hemiplegia, ckd, gerd , copd, chf, ppm 4) allergies - nkda, fh-nc, sh-negative, mar noted, notes and records noted 5) d/w RN P) 1) ceftriaxone and flagyl - day # 7 abx 2) await covid-19 testing 3) consider CT abdomen and pelvis once covid-19 ruled out - rule other source of citrobacter bacteremia 4) monitor labs 5) check c.diff. for diarrhea 6) will f/u Subjective Constitutional: Denies: fever HEENT: Denies: congestion Respiratory: Denies: shortness of breath Cardiovascular: Denies: chest pain Gastrointestinal/Abdominal: Reports: diarrhea; Denies: nausea, vomiting Psychiatric: Reports: other - NA Skin: Denies: rash Hematologic: Denies: bleeding Musculoskeletal: Denies: pain Allergies: Coded Allergies: No Known Allergies (Unverified , 01/30/20) Objective Vital Signs Last 24 Hour Vital Signs Date Time Temp Pulse Resp B/P (MAP) Pulse Ox O2 Delivery O2 Flow Rate FiO2 02/06/20 16:00 Nasal Cannula 2.0 02/06/20 16:00 97.7 109 18 124/68 (86) 100 02/06/20 16:00 2.0 02/06/20 12:00 2.0 02/06/20 12:00 104 02/06/20 12:00 Nasal Cannula 2.0 02/06/20 12:00 97.7 108 18 121/72 (88) 100 02/06/20 08:00 97.7 114 18 123/69 (87) 100 02/06/20 08:00 2.0 02/06/20 08:00 Nasal Cannula 2.0 02/06/20 08:00 116 02/06/20 07:26 100 Nasal Cannula 2.0 28 02/06/20 07:25 114 18 100 Nasal Cannula 2.0 28 02/06/20 04:00 4.0 02/06/20 04:00 98.0 116 18 139/74 (95) 100 02/06/20 04:00 Simple Mask 4.0 02/06/20 03:40 114 02/06/20 00:00 98.1 115 18 138/69 (92) 100 02/06/20 00:00 2.0 02/06/20 00:00 Simple Mask 4.0 02/05/20 23:27 115 02/05/20 20:03 98 Nasal Cannula 2.0 28 02/05/20 20:03 109 19 98 Nasal Cannula 2.0 28 02/05/20 20:00 Nasal Cannula 2.0 02/05/20 20:00 2.0 02/05/20 20:00 98.4 110 20 143/72 (95) 100 02/05/20 19:31 110 Height (Feet): 5 Height (Inches): 2.00 Weight (Pounds): 128 General Appearance: no acute distress HEENT: normocephalic, atraumatic, anicteric Respiratory/Chest: lungs clear, normal breath sounds, no respiratory distress Cardiovascular: normal rate, regular rhythm, no gallop/murmur, no JVD Abdomen: normal bowel sounds, soft, non tender, no organomegaly, non distended Genitourinary: other - + john Extremities: no cyanosis Skin: no rash 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 The heart size is normal. There is a right chest biventricular pacemaker Impression: No acute process Microbiology Date/Time Source Procedure Growth Status 02/03/20 04:15 Blood Blood Culture - Preliminary NO GROWTH AFTER 48 HOURS Resulted 01/30/20 15:45 Nasal Nares MRSA Culture - Final NO METHICILLIN RESISTANT STAPH AUREUS... Complete 02/04/20 19:00 Stool Clostridium difficile Toxin Assay - Final Complete 01/30/20 15:45 Rectum VRE Culture - Final NO VANCOMYCIN RESISTANT ENTEROCOCCUS ... Complete Microbiology Date/Time Source Procedure Growth Status 02/04/20 19:00 Stool Clostridium difficile Toxin Assay - Final Complete Laboratory Tests Test 02/06/20 04:40 White Blood Count 14.6 K/UL (4.8-10.8) H Red Blood Count 2.87 M/UL (4.20-5.40) L Hemoglobin 8.0 G/DL (12.0-16.0) L Hematocrit 24.4 % (37.0-47.0) L Mean Corpuscular Volume 85 FL (80-99) Mean Corpuscular Hemoglobin 28.0 PG (27.0-31.0) Mean Corpuscular Hemoglobin Concent 32.9 G/DL (32.0-36.0) Red Cell Distribution Width 14.6 % (11.6-14.8) Platelet Count 331 K/UL (150-450) Mean Platelet Volume 6.2 FL (6.5-10.1) L Neutrophils (%) (Auto) 82.4 % (45.0-75.0) H Lymphocytes (%) (Auto) 9.5 % (20.0-45.0) L Monocytes (%) (Auto) 6.7 % (1.0-10.0) Eosinophils (%) (Auto) 0.7 % (0.0-3.0) Basophils (%) (Auto) 0.7 % (0.0-2.0) Sodium Level 144 MMOL/L (136-145) Potassium Level 4.7 MMOL/L (3.5-5.1) Chloride Level 109 MMOL/L (98-107) H Carbon Dioxide Level 30 MMOL/L (21-32) Anion Gap 5 mmol/L (5-15) Blood Urea Nitrogen 34 mg/dL (7-18) H Creatinine 0.8 MG/DL (0.55-1.30) Estimat Glomerular Filtration Rate > 60 mL/min (>60) Glucose Level 150 MG/DL (74-106) H Calcium Level 8.9 MG/DL (8.5-10.1) Magnesium Level 1.9 MG/DL (1.8-2.4) Total Bilirubin 0.2 MG/DL (0.2-1.0) Aspartate Amino Transf (AST/SGOT) 38 U/L (15-37) H Alanine Aminotransferase (ALT/SGPT) 43 U/L (12-78) Alkaline Phosphatase 108 U/L (46-116) Total Protein 6.2 G/DL (6.4-8.2) L Albumin 1.4 G/DL (3.4-5.0) L Globulin 4.8 g/dL Albumin/Globulin Ratio 0.3 (1.0-2.7) L Current Medications Medications (Trade) Dose Ordered Sig/Moreno Route PRN Reason Start Time Stop Time Status Last Admin Dose Admin Acetaminophen (Tylenol) 650 mg Q4H PRN ORAL Mild Pain (Pain Scale 1-3) 01/30/20 19:00 02/29/20 18:59 Atorvastatin Calcium (Lipitor) 40 mg BEDTIME ORAL 01/30/20 21:00 04/29/20 20:59 02/05/20 20:41 Ceftriaxone Sodium 1 gm/ Dextrose 50 ml @ 100 mls/hr Q24H IVPB 02/04/20 21:00 02/11/20 20:59 02/05/20 20:41 Dextrose (Dextrose 50%) 25 ml Q30M PRN IV Hypoglycemia 01/30/20 19:00 04/29/20 18:59 Dextrose (Dextrose 50%) 50 ml Q30M PRN IV Hypoglycemia 01/30/20 19:00 04/29/20 18:59 Diphenhydramine HCl (Benadryl) 25 mg Q6H PRN ORAL Itching/Pruritis 01/30/20 19:00 02/29/20 18:59 Docusate Sodium (Colace) 100 mg Q12H PRN ORAL Constipation 02/02/20 12:45 03/03/20 12:44 Heparin Sodium (Porcine) (Heparin 5000 units/ml) 5,000 units EVERY 12 HOURS SUBQ 01/30/20 21:00 03/15/20 20:59 02/05/20 20:42 Levothyroxine Sodium (Synthroid) 25 mcg DAILY@0630 ORAL 01/31/20 06:30 03/01/20 06:29 02/06/20 06:01 Loperamide HCl (Imodium) 2 mg PRN PRN NG Diarrhea 02/06/20 12:45 03/07/20 12:44 02/06/20 13:24 Metronidazole 100 ml @ 100 mls/hr Q8HR IVPB 02/04/20 22:00 02/11/20 21:59 02/06/20 13:24 Ondansetron HCl (Zofran) 4 mg Q6H PRN IVP Nausea & Vomiting 01/30/20 19:00 02/29/20 18:59 Abiodun Jacobo MD Feb 06, 2020 17:03
--- NOTE | 2020-02-06 18:21 | Neurology Progress Note ---
Interim History Interim History ROS Limited/Unobtainable: Yes Interim History remains somnolent, lose stools persist, non verbal Objective Physical Exam Last Vital Signs Date Time Temp Pulse Resp B/P (MAP) Pulse Ox O2 Delivery O2 Flow Rate FiO2 02/06/20 16:00 111 02/06/20 16:00 Nasal Cannula 2.0 02/06/20 16:00 97.7 18 124/68 (86) 100 02/06/20 07:26 28 Laboratory Tests Test 02/06/20 04:40 White Blood Count 14.6 K/UL (4.8-10.8) H Red Blood Count 2.87 M/UL (4.20-5.40) L Hemoglobin 8.0 G/DL (12.0-16.0) L Hematocrit 24.4 % (37.0-47.0) L Mean Corpuscular Volume 85 FL (80-99) Mean Corpuscular Hemoglobin 28.0 PG (27.0-31.0) Mean Corpuscular Hemoglobin Concent 32.9 G/DL (32.0-36.0) Red Cell Distribution Width 14.6 % (11.6-14.8) Platelet Count 331 K/UL (150-450) Mean Platelet Volume 6.2 FL (6.5-10.1) L Neutrophils (%) (Auto) 82.4 % (45.0-75.0) H Lymphocytes (%) (Auto) 9.5 % (20.0-45.0) L Monocytes (%) (Auto) 6.7 % (1.0-10.0) Eosinophils (%) (Auto) 0.7 % (0.0-3.0) Basophils (%) (Auto) 0.7 % (0.0-2.0) Sodium Level 144 MMOL/L (136-145) Potassium Level 4.7 MMOL/L (3.5-5.1) Chloride Level 109 MMOL/L (98-107) H Carbon Dioxide Level 30 MMOL/L (21-32) Anion Gap 5 mmol/L (5-15) Blood Urea Nitrogen 34 mg/dL (7-18) H Creatinine 0.8 MG/DL (0.55-1.30) Estimat Glomerular Filtration Rate > 60 mL/min (>60) Glucose Level 150 MG/DL (74-106) H Calcium Level 8.9 MG/DL (8.5-10.1) Magnesium Level 1.9 MG/DL (1.8-2.4) Total Bilirubin 0.2 MG/DL (0.2-1.0) Aspartate Amino Transf (AST/SGOT) 38 U/L (15-37) H Alanine Aminotransferase (ALT/SGPT) 43 U/L (12-78) Alkaline Phosphatase 108 U/L (46-116) Total Protein 6.2 G/DL (6.4-8.2) L Albumin 1.4 G/DL (3.4-5.0) L Globulin 4.8 g/dL Albumin/Globulin Ratio 0.3 (1.0-2.7) L Head: normocophalic, atraumatic Neck: no rigidity EENT: benign Neurologic Exam Sensory: other - cc 35 min Objective lethargic, minimal withdraw in all 4 cc 35 min Impression/Recommendations Problems: (1) Septic shock (2) Anemia (3) Elevated troponin (4) Sepsis (5) Decubitus skin ulcer Status: stable Diagnostic Impression Acute encephalopathy in the context of sepsis Dementia, likely vascular Hx of strokes Monitor neuro exam Delirium precautions atb broad spectrum asa daily Luis Nash MD Feb 06, 2020 18:21
[2020-02-06 20:00] VITALS: BP 133/71
[2020-02-06] MEDS: Atorvastatin 20mg tab ORAL SCH (20:30)
[2020-02-06] MEDS: cefTRIAXone 1 GM in D5W 50 ML IVPB SCH (20:31)
[2020-02-07] VITALS: BP 141/71
[2020-02-07 04:00] VITALS: BP 116/60
[2020-02-07 04:38] LABS: HEMATOCRIT 22.9 % (37.0-47.0); HEMOGLOBIN 7.5 G/DL (12.0-16.0); MEAN CORPUSCULAR VOLUME 85 FL (80-99); PLATELET COUNT 367 K/UL (150-450); RED BLOOD COUNT 2.68 M/UL (4.20-5.40); RED CELL DISTRIBUTION WIDTH 14.3 % (11.6-14.8); WHITE BLOOD COUNT 14.9 K/UL (4.8-10.8)
[2020-02-07 05:16] LABS: ALANINE AMINOTRANSFERASE 34 U/L (12-78); ALBUMIN 1.4 G/DL (3.4-5.0); ALBUMIN/GLOBULIN RATIO 0.3 (1.0-2.7); ALKALINE PHOSPHATASE 102 U/L (46-116); ANION GAP 5 mmol/L (5-15); ASPARTATE AMINO TRANSFERASE 32 U/L (15-37); BILIRUBIN,TOTAL 0.1 MG/DL (0.2-1.0); BLOOD UREA NITROGEN 37 mg/dL (7-18); CALCIUM 8.7 MG/DL (8.5-10.1); CARBON DIOXIDE 30 MMOL/L (21-32); CHLORIDE 110 MMOL/L (98-107); CREATININE 0.8 MG/DL (0.55-1.30); POTASSIUM 4.7 MMOL/L (3.5-5.1); SODIUM 145 MMOL/L (136-145)
[2020-02-07] MEDS: Levothyroxine 25mcg tab ORAL SCH (05:56)
[2020-02-07 08:00] VITALS: BP 140/89
[2020-02-07] MEDS: Heparin 5000 units/ml inj SUBQ SCH (09:00)
[2020-02-07] MEDS: Acetaminophen 650mg/20.3ml GT PRN (10:52)
--- NOTE | 2020-02-07 10:57 | Nephrology Progress Note ---
Assessment/Plan Plan #hypernatremia due to free water deficit of close to 3L #sepsis #h/o CVA with hemiplegia #DM #COPD # hyperlipidemia #hypothyroidism # GERD # unspecified CHF, S/p PPM - increased free water flushes to [id number] - monitor bmp daily - continue abx - avoid nephrotoxins - strict I&Os - daily weights - monitor lytes Subjective Subjective No acute events overnight continues to have loose stools- 6 today documented labs reviewed Objective Objective Last 24 Hour Vital Signs Date Time Temp Pulse Resp B/P (MAP) Pulse Ox O2 Delivery O2 Flow Rate FiO2 02/07/20 08:01 115 02/07/20 08:00 97.9 116 18 140/89 (106) 99 02/07/20 04:00 2.0 02/07/20 04:00 98.2 112 18 116/60 (78) 100 02/07/20 04:00 Nasal Cannula 2.0 02/07/20 03:33 112 02/07/20 00:00 Nasal Cannula 2.0 02/07/20 00:00 98.0 114 18 141/71 (94) 99 02/07/20 00:00 2.0 02/06/20 23:25 117 02/06/20 20:00 2.0 02/06/20 20:00 97.9 115 18 133/71 (91) 99 02/06/20 20:00 98 Nasal Cannula 2.0 28 02/06/20 20:00 Nasal Cannula 2.0 02/06/20 19:15 114 02/06/20 16:00 111 02/06/20 16:00 Nasal Cannula 2.0 02/06/20 16:00 97.7 109 18 124/68 (86) 100 02/06/20 16:00 2.0 02/06/20 12:00 2.0 02/06/20 12:00 104 02/06/20 12:00 Nasal Cannula 2.0 02/06/20 12:00 97.7 108 18 121/72 (88) 100 Intake and Output 02/06/20 02/07/20 19:00 07:00 Intake Total 1000 ml 1250 ml Output Total 1100 ml 900 ml Balance -100 ml 350 ml Free Water 400 ml 400 ml IV Total 250 ml Tube Feeding 600 ml 600 ml Output Urine Total 800 ml 725 ml Stool Total 300 ml 175 ml # Bowel Movements 3 3 Laboratory Tests 02/07/20 03:17: White Blood Count 14.9H, Red Blood Count 2.68L, Hemoglobin 7.5L, Hematocrit 22.9L, Mean Corpuscular Volume 85, Mean Corpuscular Hemoglobin 28.1, Mean Corpuscular Hemoglobin Concent 33.0, Red Cell Distribution Width 14.3, Platelet Count 367, Mean Platelet Volume 6.1L, Neutrophils (%) (Auto) , Lymphocytes (%) ( Auto) , Monocytes (%) (Auto) , Eosinophils (%) (Auto) , Basophils (%) (Auto) , Sodium Level 145, Potassium Level 4.7, Chloride Level 110H, Carbon Dioxide Level 30, Anion Gap 5, Blood Urea Nitrogen 37H, Creatinine 0.8, Estimat Glomerular Filtration Rate > 60, Glucose Level 140H, Calcium Level 8.7, Total Bilirubin 0.1L, Aspartate Amino Transf (AST/SGOT) 32, Alanine Aminotransferase ( ALT/SGPT) 34, Alkaline Phosphatase 102, Total Protein 6.2L, Albumin 1.4L, Globulin 4.8, Albumin/Globulin Ratio 0.3L 02/07/20 08:00: Stool Occult Blood [Pending] Height (Feet): 5 Height (Inches): 2.00 Weight (Pounds): 128 Objective General Appearance: NAD, otherwise awake, alert, confused Neck: normal alignment, supple CV: RRR Respiratory: lungs clear, normal breath sounds, no respiratory distress Abdomen: non tender, soft, +PEG tube, c/d/i Ext: Contracted bilaterally, multiple abrasions wrapped in bandages C/D/I Cathy Fuller M.D. Feb 07, 2020 10:57
[2020-02-07 12:00] VITALS: BP 120/60
--- NOTE | 2020-02-07 12:02 | Surgery Progress Note ---
Surgery Progress Note Subjective Additional Comments leukocytosis labs reviewed c diff negative micro noted blood cultures Objective Last 24 Hour Vital Signs Date Time Temp Pulse Resp B/P (MAP) Pulse Ox O2 Delivery O2 Flow Rate FiO2 02/07/20 08:01 115 02/07/20 08:00 97.9 116 18 140/89 (106) 99 02/07/20 08:00 Nasal Cannula 2.0 02/07/20 08:00 2.0 02/07/20 04:00 2.0 02/07/20 04:00 98.2 112 18 116/60 (78) 100 02/07/20 04:00 Nasal Cannula 2.0 02/07/20 03:33 112 02/07/20 00:00 Nasal Cannula 2.0 02/07/20 00:00 98.0 114 18 141/71 (94) 99 02/07/20 00:00 2.0 02/06/20 23:25 117 02/06/20 20:00 2.0 02/06/20 20:00 97.9 115 18 133/71 (91) 99 02/06/20 20:00 98 Nasal Cannula 2.0 28 02/06/20 20:00 Nasal Cannula 2.0 02/06/20 19:15 114 02/06/20 16:00 111 02/06/20 16:00 Nasal Cannula 2.0 02/06/20 16:00 97.7 109 18 124/68 (86) 100 02/06/20 16:00 2.0 I&O Intake and Output 02/06/20 02/07/20 19:00 07:00 Intake Total 1000 ml 1250 ml Output Total 1100 ml 900 ml Balance -100 ml 350 ml Free Water 400 ml 400 ml IV Total 250 ml Tube Feeding 600 ml 600 ml Output Urine Total 800 ml 725 ml Stool Total 300 ml 175 ml # Bowel Movements 3 3 Dressing: other Wound: other Drains: other Cardiovascular: RSR Respiratory: decreased breath sounds Abdomen: soft, non-tender, present bowel sounds Extremities: no tenderness, no cyanosis, other Laboratory Tests Test 02/07/20 03:17 02/07/20 08:00 White Blood Count 14.9 K/UL (4.8-10.8) H Red Blood Count 2.68 M/UL (4.20-5.40) L Hemoglobin 7.5 G/DL (12.0-16.0) L Hematocrit 22.9 % (37.0-47.0) L Mean Corpuscular Volume 85 FL (80-99) Mean Corpuscular Hemoglobin 28.1 PG (27.0-31.0) Mean Corpuscular Hemoglobin Concent 33.0 G/DL (32.0-36.0) Red Cell Distribution Width 14.3 % (11.6-14.8) Platelet Count 367 K/UL (150-450) Mean Platelet Volume 6.1 FL (6.5-10.1) L Neutrophils (%) (Auto) % (45.0-75.0) Lymphocytes (%) (Auto) % (20.0-45.0) Monocytes (%) (Auto) % (1.0-10.0) Eosinophils (%) (Auto) % (0.0-3.0) Basophils (%) (Auto) % (0.0-2.0) Sodium Level 145 MMOL/L (136-145) Potassium Level 4.7 MMOL/L (3.5-5.1) Chloride Level 110 MMOL/L (98-107) H Carbon Dioxide Level 30 MMOL/L (21-32) Anion Gap 5 mmol/L (5-15) Blood Urea Nitrogen 37 mg/dL (7-18) H Creatinine 0.8 MG/DL (0.55-1.30) Estimat Glomerular Filtration Rate > 60 mL/min (>60) Glucose Level 140 MG/DL (74-106) H Calcium Level 8.7 MG/DL (8.5-10.1) Total Bilirubin 0.1 MG/DL (0.2-1.0) L Aspartate Amino Transf (AST/SGOT) 32 U/L (15-37) Alanine Aminotransferase (ALT/SGPT) 34 U/L (12-78) Alkaline Phosphatase 102 U/L (46-116) Total Protein 6.2 G/DL (6.4-8.2) L Albumin 1.4 G/DL (3.4-5.0) L Globulin 4.8 g/dL Albumin/Globulin Ratio 0.3 (1.0-2.7) L Stool Occult Blood Positive (NEGATIVE) Plan Problems: (1) Septic shock Assessment & Plan: Patient presented to emergency department with sepsis hypotension tachycardia lactic acidosis leukocytosis. On IV antibiotics Labs improving IV hydration Continue tube feeds advance goal as tolerated Abdominal exam does elicit patient to retract a bit but she is not tender peritonitis or without rebound or significant guarding. exam improved Likely startle effect rather than intra-abdominal pathology will follow with serial exams continue with current care plan thank you for let me participate in patient's care leukocytosis. c diff negative. blood cultures noted abx as per ID (2) Decubitus skin ulcer Assessment & Plan: 84-year-old female presented on admission with multiple decubitus skin ulcers and skin concerns. Patient identified to have a unstageable sacral lower back decubitus ulcer, periwound maceration, area of necrotic eschar soft, no drainage, no abscess, no foul odor Pt presented on admission with contractures, Multiple Pressure injuries.open DTPI sacrum.Wound is open at sacrococcygeal area(40%), with soft necrotic base ( L)5.5cm x (W)4.5cm. Surrounding base of wound is maroon and indurated. Total area of sacral DTPI measures(L) 12.5cm x (W)15cm. Non-blanching erythema periwound.In addition several small partial thickness wounds noted along Perineum.` Areas of hyperpigmentation noted to L and R trochanteric. Full thickness wound R knee.(L)1.1cm x (W)1.5cm.1 Base of wound 90% pink granulation,10% slough noted in center of wound. Borders are macerated.small amt serous exudate. No odor noted. No erythema or fluctuance noted periwound. Non-blanching erythema with fluctuance R heel. Unstageable pressure injury R hallux. Base of wound is 100% soft necrosis. Edges adherent and dry.No odor or exudate noted.Surrounding darker skin tone without erythema or fluctuance(L)2.6cm x (W)3cm. DTPI R Ankle(L)0.9cm x (W)1.6cm. Base of wound is fluctuant, maroon with marginal erythema. Periwound without erythema or fluctuance. Unstageable pressure injury distal/lateral R foot. Base of wound 100% soft necrosis with surrounding non-blanching erythema with fluctuance.(L)2cm x (W) 0.9cm. Stable dry eschar medial/lateral R foot (L)0.4cm x (W)0.8cm. Stable dry eschar lateral L heel.(L)1.9cm x (W)2.2cm. No erythema or fluctuance periwound. Unstable pressure injury medial/lateral L foot. Base of wound is 100% necrotic but dry.(L)0.7cm x (W)0.8cm. Unstageable pressure injury distal/lateral L foot. Base of wound is 100% necrotic but dry. (L)1.2cm x (W)1.6cm.non-blanching erythema without fluctuance periwound. Non-blanching erythema without fluctuance lateral L 5th metatarsal.(L)1.5cm x (W )0.5cm. Open DTPI L Hallux.Base of wound has mixed necrosis and slough with surrounding base of wound maroon with fluctuance. Non-blanching erythema without elevation in skin temp,or fluctuance periwound. Tx.plan: Cleanse Sacral wound with Saline. Apply TheraHoney. Apply Moisture Barrier Paste Periwound. Cover with Optifoam drsg. Change Daily and prn. Swab R nee with Betadine. Cover with Optifoam drsg every 3 days and prn. Swab wounds R foot with Betadine. Cover each wound with Optifoam drsg. Change every 3 days and prn. Swab wounds L foot with Betadine. Cover each wound with Optifoam drsg. Change every 3 days and prn. Reposition at least every 2hours or as tolerated. Place pillow between knees. Off-load heels with Pillow. APM/ARIEL Mattress. DAILY ESTIMATED NEEDS: Needs based on Wounds, underweight 50kg 30-35 kcals/kg 5083-7449 total kcals 1.25-2 g protein/kg 63-100 g total protein 25-30 mL/kg 4190-5712 total fluid mLs NUTRITION DIAGNOSIS: Increased kcal and pro needs r/t underweight status and wound healing as evidenced by pt @85% [place] Body Weight w/ multiple wounds, eval pending, pt is PEG dep. CURRENT TF:Glucerna 1.5 @60ml x20 hrs ENTERAL NUTRITION RECOMMENDATIONS: Maintain current TF as tolerated: Glucerna 1.5 @60ml/hr x20 hrs to provide 1200ml, 1800 kcal, 99g pro, 911ml free H2o -> Monitor for hypoglycemia and need to change to non carb control formula -> Flush per MD. HOB over 30 degrees ADDITIONAL RECOMMENDATIONS: 1) On iso, per SNF pt is: 65 inches + 110#/50kg 2) Wound care: add MATT in 4oz H2O BID via GT F/up w/ WC eval 3) Maintain calibrated bed scale wts 4) Monitor for continued hypoglycemic events, need for D5 or TF change Luther Mercedes Feb 07, 2020 12:02
--- NOTE | 2020-02-07 12:13 | General Progress Note ---
Assessment/Plan Problem List: (1) Diarrhea ICD Codes: R19.7 - Diarrhea, unspecified SNOMED: 63985422 (2) GI (gastrointestinal bleed) ICD Codes: K92.2 - Gastrointestinal hemorrhage, unspecified SNOMED: 71219606 (3) Elevated troponin ICD Codes: R79.89 - Other specified abnormal findings of blood chemistry; R65.21 - Severe sepsis with septic shock SNOMED: 553854851, 004844164, 810321524 (4) Anemia ICD Codes: D64.9 - Anemia, unspecified SNOMED: 999692506 (5) Septic shock ICD Codes: A41.9 - Sepsis, unspecified organism; R65.21 - Severe sepsis with septic shock SNOMED: 06863834 Status: stable Assessment/Plan: dc heparin dc colace add lomotil neg stool C.diff ppi pending blood transfusion COVID isolation GI procedures if needed Subjective Allergies: Coded Allergies: No Known Allergies (Unverified , 01/30/20) Objective Last 24 Hour Vital Signs Date Time Temp Pulse Resp B/P (MAP) Pulse Ox O2 Delivery O2 Flow Rate FiO2 02/07/20 08:01 115 02/07/20 08:00 97.9 116 18 140/89 (106) 99 02/07/20 08:00 Nasal Cannula 2.0 02/07/20 08:00 2.0 02/07/20 04:00 2.0 02/07/20 04:00 98.2 112 18 116/60 (78) 100 02/07/20 04:00 Nasal Cannula 2.0 02/07/20 03:33 112 02/07/20 00:00 Nasal Cannula 2.0 02/07/20 00:00 98.0 114 18 141/71 (94) 99 02/07/20 00:00 2.0 02/06/20 23:25 117 02/06/20 20:00 2.0 02/06/20 20:00 97.9 115 18 133/71 (91) 99 02/06/20 20:00 98 Nasal Cannula 2.0 28 02/06/20 20:00 Nasal Cannula 2.0 02/06/20 19:15 114 02/06/20 16:00 111 02/06/20 16:00 Nasal Cannula 2.0 02/06/20 16:00 97.7 109 18 124/68 (86) 100 02/06/20 16:00 2.0 Intake and Output 02/06/20 02/07/20 19:00 07:00 Intake Total 1000 ml 1250 ml Output Total 1100 ml 900 ml Balance -100 ml 350 ml Free Water 400 ml 400 ml IV Total 250 ml Tube Feeding 600 ml 600 ml Output Urine Total 800 ml 725 ml Stool Total 300 ml 175 ml # Bowel Movements 3 3 Laboratory Tests 02/07/20 03:17: White Blood Count 14.9H, Red Blood Count 2.68L, Hemoglobin 7.5L, Hematocrit 22.9L, Mean Corpuscular Volume 85, Mean Corpuscular Hemoglobin 28.1, Mean Corpuscular Hemoglobin Concent 33.0, Red Cell Distribution Width 14.3, Platelet Count 367, Mean Platelet Volume 6.1L, Neutrophils (%) (Auto) , Lymphocytes (%) ( Auto) , Monocytes (%) (Auto) , Eosinophils (%) (Auto) , Basophils (%) (Auto) , Sodium Level 145, Potassium Level 4.7, Chloride Level 110H, Carbon Dioxide Level 30, Anion Gap 5, Blood Urea Nitrogen 37H, Creatinine 0.8, Estimat Glomerular Filtration Rate > 60, Glucose Level 140H, Calcium Level 8.7, Total Bilirubin 0.1L, Aspartate Amino Transf (AST/SGOT) 32, Alanine Aminotransferase ( ALT/SGPT) 34, Alkaline Phosphatase 102, Total Protein 6.2L, Albumin 1.4L, Globulin 4.8, Albumin/Globulin Ratio 0.3L 02/07/20 08:00: Stool Occult Blood Positive Height (Feet): 5 Height (Inches): 2.00 Weight (Pounds): 128 General Appearance: alert EENT: normal ENT inspection Neck: supple Cardiovascular: normal rate Respiratory/Chest: decreased breath sounds Abdomen: normal bowel sounds, non tender, soft Extremities: non-tender Herminio Rodriguez MD Feb 07, 2020 12:13
[2020-02-07] MEDS ORDERED: Lomotil 2.5mg tab ORAL PRN (12:15)
[2020-02-07] MEDS ORDERED: Lomotil 2.5mg tab GT PRN (12:30)
[2020-02-07 16:00] VITALS: BP 147/77
[2020-02-07 16:05] LABS: BASOPHILS % (AUTO) 0.9 % (0.0-2.0); EOSINOPHILS % (AUTO) 0.5 % (0.0-3.0); HEMATOCRIT 29.8 % (37.0-47.0); HEMOGLOBIN 9.6 G/DL (12.0-16.0); LYMPHOCYTES % (AUTO) 10.6 % (20.0-45.0); MEAN CORPUSCULAR VOLUME 85 FL (80-99); MONOCYTES % (AUTO) 6.4 % (1.0-10.0); NEUTROPHILS % (AUTO) 81.6 % (45.0-75.0); PLATELET COUNT 384 K/UL (150-450); RED BLOOD COUNT 3.49 M/UL (4.20-5.40); RED CELL DISTRIBUTION WIDTH 16.2 % (11.6-14.8); WHITE BLOOD COUNT 15.7 K/UL (4.8-10.8)
--- NOTE | 2020-02-07 16:22 | General Progress Note ---
Assessment/Plan Status: stable Assessment/Plan: 84 year old woman with history of CVA, hemiplegia, DM, COPD, CKD, hyperlipidemia , hypothyroidism, GERD, unspecified CHF, S/p PPM brought in from SNF with hypotension, found to be septic with leukocytosis and minimal pyuria #Sepsis #Citrobacter bacteremia #Hypotension #Elevated lactate, improved #Leukocytosis remains elevated #diarrhea -continue inpatient level of care -cardiac monitoring -suspect intraabdominal source -BCx 01/29 +citrobacter -repeat BC 02/02 negative -c diff negative -start imodium -cont to hold anti-hypertensives -follow up COVID 19 -Droplet precautions for now -ID following: cont. 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 Additional 40 mins was spent with family counseling and advanced care planning discussion Subjective Allergies: Coded Allergies: No Known Allergies (Unverified , 01/30/20) Subjective Follow up for sepsis, gram negative bacteremia. No acute events overnight. Patient aphasic/non-verbal, at b/l per nurse. Hgb 7.5 this AM, 1 U PRBC ordered. Objective Last 24 Hour Vital Signs Date Time Temp Pulse Resp B/P (MAP) Pulse Ox O2 Delivery O2 Flow Rate FiO2 02/07/20 12:00 97.7 94 18 120/60 (80) 100 02/07/20 12:00 Nasal Cannula 2.0 02/07/20 12:00 109 02/07/20 12:00 2.0 02/07/20 08:01 115 02/07/20 08:00 97.9 116 18 140/89 (106) 99 02/07/20 08:00 Nasal Cannula 2.0 02/07/20 08:00 2.0 02/07/20 04:00 2.0 02/07/20 04:00 98.2 112 18 116/60 (78) 100 02/07/20 04:00 Nasal Cannula 2.0 02/07/20 03:33 112 02/07/20 00:00 Nasal Cannula 2.0 02/07/20 00:00 98.0 114 18 141/71 (94) 99 02/07/20 00:00 2.0 02/06/20 23:25 117 02/06/20 20:00 2.0 02/06/20 20:00 97.9 115 18 133/71 (91) 99 02/06/20 20:00 98 Nasal Cannula 2.0 28 02/06/20 20:00 Nasal Cannula 2.0 02/06/20 19:15 114 Intake and Output 02/06/20 02/07/20 19:00 07:00 Intake Total 1000 ml 1250 ml Output Total 1100 ml 900 ml Balance -100 ml 350 ml Free Water 400 ml 400 ml IV Total 250 ml Tube Feeding 600 ml 600 ml Output Urine Total 800 ml 725 ml Stool Total 300 ml 175 ml # Bowel Movements 3 3 Laboratory Tests 02/07/20 03:17: White Blood Count 14.9H, Red Blood Count 2.68L, Hemoglobin 7.5L, Hematocrit 22.9L, Mean Corpuscular Volume 85, Mean Corpuscular Hemoglobin 28.1, Mean Corpuscular Hemoglobin Concent 33.0, Red Cell Distribution Width 14.3, Platelet Count 367, Mean Platelet Volume 6.1L, Neutrophils (%) (Auto) , Lymphocytes (%) ( Auto) , Monocytes (%) (Auto) , Eosinophils (%) (Auto) , Basophils (%) (Auto) , Sodium Level 145, Potassium Level 4.7, Chloride Level 110H, Carbon Dioxide Level 30, Anion Gap 5, Blood Urea Nitrogen 37H, Creatinine 0.8, Estimat Glomerular Filtration Rate > 60, Glucose Level 140H, Calcium Level 8.7, Total Bilirubin 0.1L, Aspartate Amino Transf (AST/SGOT) 32, Alanine Aminotransferase ( ALT/SGPT) 34, Alkaline Phosphatase 102, Total Protein 6.2L, Albumin 1.4L, Globulin 4.8, Albumin/Globulin Ratio 0.3L 02/07/20 08:00: Stool Occult Blood Positive 02/07/20 15:30: White Blood Count 15.7H, Red Blood Count 3.49L, Hemoglobin 9.6L, Hematocrit 29.8 #L, Mean Corpuscular Volume 85, Mean Corpuscular Hemoglobin 27.5, Mean Corpuscular Hemoglobin Concent 32.3, Red Cell Distribution Width 16.2H, Platelet Count 384, Mean Platelet Volume 7.0, Neutrophils (%) (Auto) 81.6H, Lymphocytes (%) (Auto) 10.6L, Monocytes (%) (Auto) 6.4, Eosinophils (%) (Auto) 0.5, Basophils (%) (Auto) 0.9 Height (Feet): 5 Height (Inches): 2.00 Weight (Pounds): 128 Objective General Appearance: NAD, non-verbal, otherwise awake, alert Neck: normal alignment, supple CV: RRR Respiratory: lungs clear, normal breath sounds, no respiratory distress Abdomen: non tender, soft, +PEG tube, c/d/i Ext: Contracted bilaterally, multiple abrasions wrapped in bandages C/D/I Lorna Uribe M.D. Feb 07, 2020 16:22
[2020-02-07 20:00] VITALS: BP 132/75
[2020-02-07] MEDS: Pantoprazole Inj IVP SCH (20:10)
[2020-02-07] MEDS: cefTRIAXone 1 GM in D5W 50 ML IVPB SCH (20:10)
[2020-02-07] MEDS: Atorvastatin 20mg tab ORAL SCH (20:10)
--- NOTE | 2020-02-07 22:01 | Neurology Progress Note ---
Interim History Interim History ROS Limited/Unobtainable: Yes Interim History somnolent, poor prognosis, lower hb, pending transfusion Objective Physical Exam Last Vital Signs Date Time Temp Pulse Resp B/P (MAP) Pulse Ox O2 Delivery O2 Flow Rate FiO2 02/07/20 20:00 102 02/07/20 20:00 97.5 18 132/75 (94) 100 02/07/20 20:00 2.0 02/07/20 20:00 Nasal Cannula 02/07/20 19:19 28 Laboratory Tests Test 02/07/20 03:17 02/07/20 08:00 02/07/20 15:30 White Blood Count 14.9 K/UL (4.8-10.8) H 15.7 K/UL (4.8-10.8) H Red Blood Count 2.68 M/UL (4.20-5.40) L 3.49 M/UL (4.20-5.40) L Hemoglobin 7.5 G/DL (12.0-16.0) L 9.6 G/DL (12.0-16.0) L Hematocrit 22.9 % (37.0-47.0) L 29.8 % (37.0-47.0) #L Mean Corpuscular Volume 85 FL (80-99) 85 FL (80-99) Mean Corpuscular Hemoglobin 28.1 PG (27.0-31.0) 27.5 PG (27.0-31.0) Mean Corpuscular Hemoglobin Concent 33.0 G/DL (32.0-36.0) 32.3 G/DL (32.0-36.0) Red Cell Distribution Width 14.3 % (11.6-14.8) 16.2 % (11.6-14.8) H Platelet Count 367 K/UL (150-450) 384 K/UL (150-450) Mean Platelet Volume 6.1 FL (6.5-10.1) L 7.0 FL (6.5-10.1) Neutrophils (%) (Auto) % (45.0-75.0) 81.6 % (45.0-75.0) H Lymphocytes (%) (Auto) % (20.0-45.0) 10.6 % (20.0-45.0) L Monocytes (%) (Auto) % (1.0-10.0) 6.4 % (1.0-10.0) Eosinophils (%) (Auto) % (0.0-3.0) 0.5 % (0.0-3.0) Basophils (%) (Auto) % (0.0-2.0) 0.9 % (0.0-2.0) Sodium Level 145 MMOL/L (136-145) Potassium Level 4.7 MMOL/L (3.5-5.1) Chloride Level 110 MMOL/L (98-107) H Carbon Dioxide Level 30 MMOL/L (21-32) Anion Gap 5 mmol/L (5-15) Blood Urea Nitrogen 37 mg/dL (7-18) H Creatinine 0.8 MG/DL (0.55-1.30) Estimat Glomerular Filtration Rate > 60 mL/min (>60) Glucose Level 140 MG/DL (74-106) H Calcium Level 8.7 MG/DL (8.5-10.1) Total Bilirubin 0.1 MG/DL (0.2-1.0) L Aspartate Amino Transf (AST/SGOT) 32 U/L (15-37) Alanine Aminotransferase (ALT/SGPT) 34 U/L (12-78) Alkaline Phosphatase 102 U/L (46-116) Total Protein 6.2 G/DL (6.4-8.2) L Albumin 1.4 G/DL (3.4-5.0) L Globulin 4.8 g/dL Albumin/Globulin Ratio 0.3 (1.0-2.7) L Stool Occult Blood Positive (NEGATIVE) Head: normocophalic, atraumatic Neck: no rigidity EENT: benign Neurologic Exam Sensory: other - cc 35 min Objective lethargic, minimal withdraw in all 4 cc 35 min Impression/Recommendations Problems: (1) Septic shock (2) Anemia (3) Elevated troponin (4) Sepsis (5) Decubitus skin ulcer Status: stable Diagnostic Impression Acute encephalopathy in the context of sepsis Dementia, likely vascular Hx of strokes Monitor neuro exam Delirium precautions atb broad spectrum asa daily Luis Nash MD Feb 07, 2020 22:01
[2020-02-08] VITALS: BP 141/68
[2020-02-08 04:00] VITALS: BP 130/89
[2020-02-08] MEDS: Levothyroxine 25mcg tab ORAL SCH (06:35)
[2020-02-08 08:00] VITALS: BP 133/62
[2020-02-08] MEDS: Pantoprazole Inj IVP SCH ×2 (08:13→21:03)
--- NOTE | 2020-02-08 09:49 | General Progress Note ---
Assessment/Plan Problem List: (1) Diarrhea ICD Codes: R19.7 - Diarrhea, unspecified SNOMED: 93946150 (2) GI (gastrointestinal bleed) ICD Codes: K92.2 - Gastrointestinal hemorrhage, unspecified SNOMED: 82001105 (3) Elevated troponin ICD Codes: R79.89 - Other specified abnormal findings of blood chemistry; R65.21 - Severe sepsis with septic shock SNOMED: 091409933, 331253055, 699162329 (4) Anemia ICD Codes: D64.9 - Anemia, unspecified SNOMED: 474201037 (5) Septic shock ICD Codes: A41.9 - Sepsis, unspecified organism; R65.21 - Severe sepsis with septic shock SNOMED: 41070325 Status: stable Assessment/Plan: off heparin diarrhea is better with Lomotil and Imodium neg stool C.diff ppi change TF to Glucerna 1.2 s/p blood transfusion COVID isolation GI procedures if needed Subjective Allergies: Coded Allergies: No Known Allergies (Unverified , 01/30/20) Objective Last 24 Hour Vital Signs Date Time Temp Pulse Resp B/P (MAP) Pulse Ox O2 Delivery O2 Flow Rate FiO2 02/08/20 08:00 98.4 118 18 133/62 (85) 99 02/08/20 08:00 Nasal Cannula 2.0 02/08/20 07:55 115 02/08/20 04:00 Nasal Cannula 2.0 02/08/20 04:00 97.9 111 18 130/89 (103) 100 02/08/20 04:00 2.0 02/08/20 03:44 110 02/08/20 00:00 97.8 104 20 141/68 (92) 99 02/08/20 00:00 Nasal Cannula 2.0 02/08/20 00:00 2.0 02/07/20 23:52 111 02/07/20 20:00 102 02/07/20 20:00 97.5 108 18 132/75 (94) 100 02/07/20 20:00 2.0 02/07/20 20:00 Nasal Cannula 2.0 02/07/20 19:19 98 Nasal Cannula 2.0 28 02/07/20 16:00 109 02/07/20 16:00 97.3 104 18 147/77 (100) 100 02/07/20 16:00 2.0 02/07/20 16:00 Nasal Cannula 2.0 02/07/20 12:00 97.7 94 18 120/60 (80) 100 02/07/20 12:00 Nasal Cannula 2.0 02/07/20 12:00 109 02/07/20 12:00 2.0 Intake and Output 02/07/20 02/08/20 19:00 07:00 Intake Total 1000 ml 1300 ml Output Total 950 ml 1025 ml Balance 50 ml 275 ml Free Water 400 ml 400 ml IV Total 300 ml Tube Feeding 600 ml 600 ml Output Urine Total 900 ml 800 ml Stool Total 50 ml 225 ml # Bowel Movements 3 3 Laboratory Tests 02/07/20 15:30: White Blood Count 15.7H, Red Blood Count 3.49L, Hemoglobin 9.6L, Hematocrit 29.8 #L, Mean Corpuscular Volume 85, Mean Corpuscular Hemoglobin 27.5, Mean Corpuscular Hemoglobin Concent 32.3, Red Cell Distribution Width 16.2H, Platelet Count 384, Mean Platelet Volume 7.0, Neutrophils (%) (Auto) 81.6H, Lymphocytes (%) (Auto) 10.6L, Monocytes (%) (Auto) 6.4, Eosinophils (%) (Auto) 0.5, Basophils (%) (Auto) 0.9 Height (Feet): 5 Height (Inches): 2.00 Weight (Pounds): 128 General Appearance: alert EENT: normal ENT inspection Neck: supple Cardiovascular: normal rate Respiratory/Chest: decreased breath sounds Abdomen: normal bowel sounds, non tender, soft Extremities: non-tender Herminio Rodriguez MD Feb 08, 2020 09:49
--- NOTE | 2020-02-08 09:55 | Neurology Progress Note ---
Interim History Interim History ROS Limited/Unobtainable: Yes Interim History lethargic Objective Physical Exam Last Vital Signs Date Time Temp Pulse Resp B/P (MAP) Pulse Ox O2 Delivery O2 Flow Rate FiO2 02/08/20 08:00 98.4 118 18 133/62 (85) 99 02/08/20 08:00 Nasal Cannula 2.0 02/07/20 19:19 28 Laboratory Tests Test 02/07/20 15:30 White Blood Count 15.7 K/UL (4.8-10.8) H Red Blood Count 3.49 M/UL (4.20-5.40) L Hemoglobin 9.6 G/DL (12.0-16.0) L Hematocrit 29.8 % (37.0-47.0) #L Mean Corpuscular Volume 85 FL (80-99) Mean Corpuscular Hemoglobin 27.5 PG (27.0-31.0) Mean Corpuscular Hemoglobin Concent 32.3 G/DL (32.0-36.0) Red Cell Distribution Width 16.2 % (11.6-14.8) H Platelet Count 384 K/UL (150-450) Mean Platelet Volume 7.0 FL (6.5-10.1) Neutrophils (%) (Auto) 81.6 % (45.0-75.0) H Lymphocytes (%) (Auto) 10.6 % (20.0-45.0) L Monocytes (%) (Auto) 6.4 % (1.0-10.0) Eosinophils (%) (Auto) 0.5 % (0.0-3.0) Basophils (%) (Auto) 0.9 % (0.0-2.0) Head: normocophalic, atraumatic Neck: no rigidity EENT: benign Neurologic Exam Sensory: other - cc 35 min Objective lethargic, minimal withdraw in all 4 cc 35 min Impression/Recommendations Problems: (1) Septic shock (2) Anemia (3) Elevated troponin (4) Sepsis (5) Decubitus skin ulcer Status: stable Diagnostic Impression Acute encephalopathy in the context of sepsis Dementia, likely vascular Hx of strokes Monitor neuro exam Delirium precautions atb broad spectrum asa daily Luis Nash MD Feb 08, 2020 09:55
[2020-02-08 10:52] LABS: ANION GAP 4 mmol/L (5-15); BLOOD UREA NITROGEN 36 mg/dL (7-18); CALCIUM 8.5 MG/DL (8.5-10.1); CARBON DIOXIDE 29 MMOL/L (21-32); CHLORIDE 111 MMOL/L (98-107); CREATININE 0.8 MG/DL (0.55-1.30); POTASSIUM 4.5 MMOL/L (3.5-5.1); SODIUM 144 MMOL/L (136-145)
[2020-02-08 10:54] LABS: HEMATOCRIT 27.8 % (37.0-47.0); HEMOGLOBIN 9.4 G/DL (12.0-16.0); MEAN CORPUSCULAR VOLUME 84 FL (80-99); PLATELET COUNT 418 K/UL (150-450); RED CELL DISTRIBUTION WIDTH 14.1 % (11.6-14.8); WHITE BLOOD COUNT 14.2 K/UL (4.8-10.8)
--- NOTE | 2020-02-08 11:35 | Nephrology Progress Note ---
Assessment/Plan Plan #hypernatremia due to free water deficit of close to 3L #sepsis #h/o CVA with hemiplegia #DM #COPD # hyperlipidemia #hypothyroidism # GERD # unspecified CHF, S/p PPM - increased free water flushes to [id number] - monitor bmp daily - continue abx - avoid nephrotoxins - strict I&Os - daily weights - monitor lytes Subjective Subjective No acute events overnight less diarrhea labs reviewed Objective Objective Last 24 Hour Vital Signs Date Time Temp Pulse Resp B/P (MAP) Pulse Ox O2 Delivery O2 Flow Rate FiO2 02/08/20 08:00 98.4 118 18 133/62 (85) 99 02/08/20 08:00 Nasal Cannula 2.0 02/08/20 07:55 115 02/08/20 04:00 Nasal Cannula 2.0 02/08/20 04:00 97.9 111 18 130/89 (103) 100 02/08/20 04:00 2.0 02/08/20 03:44 110 02/08/20 00:00 97.8 104 20 141/68 (92) 99 02/08/20 00:00 Nasal Cannula 2.0 02/08/20 00:00 2.0 02/07/20 23:52 111 02/07/20 20:00 102 02/07/20 20:00 97.5 108 18 132/75 (94) 100 02/07/20 20:00 2.0 02/07/20 20:00 Nasal Cannula 2.0 02/07/20 19:19 98 Nasal Cannula 2.0 28 02/07/20 16:00 109 02/07/20 16:00 97.3 104 18 147/77 (100) 100 02/07/20 16:00 2.0 02/07/20 16:00 Nasal Cannula 2.0 02/07/20 12:00 97.7 94 18 120/60 (80) 100 02/07/20 12:00 Nasal Cannula 2.0 02/07/20 12:00 109 02/07/20 12:00 2.0 Intake and Output 02/07/20 02/08/20 19:00 07:00 Intake Total 1000 ml 1300 ml Output Total 950 ml 1025 ml Balance 50 ml 275 ml Free Water 400 ml 400 ml IV Total 300 ml Tube Feeding 600 ml 600 ml Output Urine Total 900 ml 800 ml Stool Total 50 ml 225 ml # Bowel Movements 3 3 Laboratory Tests 02/07/20 15:30: White Blood Count 15.7H, Red Blood Count 3.49L, Hemoglobin 9.6L, Hematocrit 29.8 #L, Mean Corpuscular Volume 85, Mean Corpuscular Hemoglobin 27.5, Mean Corpuscular Hemoglobin Concent 32.3, Red Cell Distribution Width 16.2H, Platelet Count 384, Mean Platelet Volume 7.0, Neutrophils (%) (Auto) 81.6H, Lymphocytes (%) (Auto) 10.6L, Monocytes (%) (Auto) 6.4, Eosinophils (%) (Auto) 0.5, Basophils (%) (Auto) 0.9 02/08/20 10:00: White Blood Count 14.2H, Red Blood Count 3.30L, Hemoglobin 9.4L, Hematocrit 27.8L, Mean Corpuscular Volume 84, Mean Corpuscular Hemoglobin 28.4, Mean Corpuscular Hemoglobin Concent 33.8, Red Cell Distribution Width 14.1, Platelet Count 418, Mean Platelet Volume 6.0L, Neutrophils (%) (Auto) , Lymphocytes (%) ( Auto) , Monocytes (%) (Auto) , Eosinophils (%) (Auto) , Basophils (%) (Auto) , Neutrophils % (Manual) [Pending], Lymphocytes % (Manual) [Pending], Platelet Estimate [Pending], Platelet Morphology [Pending], Sodium Level 144, Potassium Level 4.5, Chloride Level 111H, Carbon Dioxide Level 29, Anion Gap 4L, Blood Urea Nitrogen 36H, Creatinine 0.8, Estimat Glomerular Filtration Rate > 60, Glucose Level 136H, Calcium Level 8.5 Height (Feet): 5 Height (Inches): 2.00 Weight (Pounds): 128 Objective General Appearance: NAD, otherwise awake, alert, confused Neck: normal alignment, supple CV: RRR Respiratory: lungs clear, normal breath sounds, no respiratory distress Abdomen: non tender, soft, +PEG tube, c/d/i Ext: Contracted bilaterally, multiple abrasions wrapped in bandages C/D/I Cathy Fuller M.D. Feb 08, 2020 11:34
[2020-02-08 12:00] VITALS: BP 118/76
--- NOTE | 2020-02-08 12:30 | General Progress Note ---
Assessment/Plan Status: stable Assessment/Plan: 84 year old woman with history of CVA, hemiplegia, DM, COPD, CKD, hyperlipidemia , hypothyroidism, GERD, unspecified CHF, S/p PPM brought in from SNF with hypotension, found to be septic with leukocytosis and minimal pyuria #Sepsis #Citrobacter bacteremia #Hypotension #Elevated lactate, improved #Leukocytosis - remains elevated #diarrhea -continue inpatient level of care -cardiac monitoring -suspect intraabdominal source -BCx 01/29 +citrobacter -repeat BC 02/02 negative -c diff negative -Cont. imodium PRN -cont to hold anti-hypertensives -follow up COVID 19 -Droplet precautions for now -ID following: cont. CTX, flagyl for possible GI source, if COVID negative, will obtain ct abd/pelvis #HTN #HLD #Elevated BNP #S/p PPM #Sinus tachycardia -cont to hold BP meds as above, will resume if pressures going up -monitor closely for evidence of fluid overload -Echo w/normal EF -start MTP 25 mg PO q daily, hold for SBP <110 or HR<65 -Cards eval appreciated #Hypernatremia - resolved #Unspecified CKD -FWF at 200 cc q6 hr -monitor renal function -Nephro following, appreciate recs #Hypothyroidism -cont levothyroxine #Decubitus Ulcer -Wound care follwing, appreciate recs #Dementia #h/o CVA -AOx1 at b/l -supportive care, monitor mentation -fall precautions, aspiration precautions -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 Subjective Allergies: Coded Allergies: No Known Allergies (Unverified , 01/30/20) Subjective Follow up for sepsis, gram negative bacteremia. No acute events overnight. Patient aphasic/non-verbal, at b/l per nurse. Pending COVID testing. Objective Last 24 Hour Vital Signs Date Time Temp Pulse Resp B/P (MAP) Pulse Ox O2 Delivery O2 Flow Rate FiO2 02/08/20 08:00 98.4 118 18 133/62 (85) 99 02/08/20 08:00 Nasal Cannula 2.0 02/08/20 07:55 115 02/08/20 04:00 Nasal Cannula 2.0 02/08/20 04:00 97.9 111 18 130/89 (103) 100 02/08/20 04:00 2.0 02/08/20 03:44 110 02/08/20 00:00 97.8 104 20 141/68 (92) 99 02/08/20 00:00 Nasal Cannula 2.0 02/08/20 00:00 2.0 02/07/20 23:52 111 02/07/20 20:00 102 02/07/20 20:00 97.5 108 18 132/75 (94) 100 02/07/20 20:00 2.0 02/07/20 20:00 Nasal Cannula 2.0 02/07/20 19:19 98 Nasal Cannula 2.0 28 02/07/20 16:00 109 02/07/20 16:00 97.3 104 18 147/77 (100) 100 02/07/20 16:00 2.0 02/07/20 16:00 Nasal Cannula 2.0 Intake and Output 02/07/20 02/08/20 19:00 07:00 Intake Total 1000 ml 1300 ml Output Total 950 ml 1025 ml Balance 50 ml 275 ml Free Water 400 ml 400 ml IV Total 300 ml Tube Feeding 600 ml 600 ml Output Urine Total 900 ml 800 ml Stool Total 50 ml 225 ml # Bowel Movements 3 3 Laboratory Tests 02/07/20 15:30: White Blood Count 15.7H, Red Blood Count 3.49L, Hemoglobin 9.6L, Hematocrit 29.8 #L, Mean Corpuscular Volume 85, Mean Corpuscular Hemoglobin 27.5, Mean Corpuscular Hemoglobin Concent 32.3, Red Cell Distribution Width 16.2H, Platelet Count 384, Mean Platelet Volume 7.0, Neutrophils (%) (Auto) 81.6H, Lymphocytes (%) (Auto) 10.6L, Monocytes (%) (Auto) 6.4, Eosinophils (%) (Auto) 0.5, Basophils (%) (Auto) 0.9 02/08/20 10:00: White Blood Count 14.2H, Red Blood Count 3.30L, Hemoglobin 9.4L, Hematocrit 27.8L, Mean Corpuscular Volume 84, Mean Corpuscular Hemoglobin 28.4, Mean Corpuscular Hemoglobin Concent 33.8, Red Cell Distribution Width 14.1, Platelet Count 418, Mean Platelet Volume 6.0L, Neutrophils (%) (Auto) , Lymphocytes (%) ( Auto) , Monocytes (%) (Auto) , Eosinophils (%) (Auto) , Basophils (%) (Auto) , Differential Total Cells Counted 100, Neutrophils % (Manual) 86H, Lymphocytes % (Manual) 7L, Monocytes % (Manual) 6, Eosinophils % (Manual) 1, Basophils % ( Manual) 0, Band Neutrophils 0, Platelet Estimate Adequate, Platelet Morphology Normal, Hypochromasia 1+, Sodium Level 144, Potassium Level 4.5, Chloride Level 111H, Carbon Dioxide Level 29, Anion Gap 4L, Blood Urea Nitrogen 36H, Creatinine 0.8, Estimat Glomerular Filtration Rate > 60, Glucose Level 136H, Calcium Level 8.5 Height (Feet): 5 Height (Inches): 2.00 Weight (Pounds): 128 Objective General Appearance: NAD, non-verbal, otherwise awake, alert, cachetic Neck: normal alignment, supple CV: RRR Respiratory: lungs clear, normal breath sounds, no respiratory distress Abdomen: non tender, soft, +PEG tube, c/d/i Ext: Contracted bilaterally, multiple abrasions wrapped in bandages C/D/I Lorna Uribe M.D. Feb 08, 2020 12:30
--- NOTE | 2020-02-08 12:54 | Surgery Progress Note ---
Surgery Progress Note Subjective Additional Comments no acute events stable labs noted comfortable Objective Last 24 Hour Vital Signs Date Time Temp Pulse Resp B/P (MAP) Pulse Ox O2 Delivery O2 Flow Rate FiO2 02/08/20 12:00 Nasal Cannula 2.0 02/08/20 11:33 120 02/08/20 08:00 98.4 118 18 133/62 (85) 99 02/08/20 08:00 Nasal Cannula 2.0 02/08/20 07:55 115 02/08/20 04:00 Nasal Cannula 2.0 02/08/20 04:00 97.9 111 18 130/89 (103) 100 02/08/20 04:00 2.0 02/08/20 03:44 110 02/08/20 00:00 97.8 104 20 141/68 (92) 99 02/08/20 00:00 Nasal Cannula 2.0 02/08/20 00:00 2.0 02/07/20 23:52 111 02/07/20 20:00 102 02/07/20 20:00 97.5 108 18 132/75 (94) 100 02/07/20 20:00 2.0 02/07/20 20:00 Nasal Cannula 2.0 02/07/20 19:19 98 Nasal Cannula 2.0 28 02/07/20 16:00 109 02/07/20 16:00 97.3 104 18 147/77 (100) 100 02/07/20 16:00 2.0 02/07/20 16:00 Nasal Cannula 2.0 I&O Intake and Output 02/07/20 02/08/20 19:00 07:00 Intake Total 1000 ml 1300 ml Output Total 950 ml 1025 ml Balance 50 ml 275 ml Free Water 400 ml 400 ml IV Total 300 ml Tube Feeding 600 ml 600 ml Output Urine Total 900 ml 800 ml Stool Total 50 ml 225 ml # Bowel Movements 3 3 Dressing: other Wound: other Drains: other Cardiovascular: RSR Respiratory: decreased breath sounds Abdomen: soft, non-tender, present bowel sounds Extremities: no cyanosis Laboratory Tests Test 02/07/20 15:30 02/08/20 10:00 White Blood Count 15.7 K/UL (4.8-10.8) H 14.2 K/UL (4.8-10.8) H Red Blood Count 3.49 M/UL (4.20-5.40) L 3.30 M/UL (4.20-5.40) L Hemoglobin 9.6 G/DL (12.0-16.0) L 9.4 G/DL (12.0-16.0) L Hematocrit 29.8 % (37.0-47.0) #L 27.8 % (37.0-47.0) L Mean Corpuscular Volume 85 FL (80-99) 84 FL (80-99) Mean Corpuscular Hemoglobin 27.5 PG (27.0-31.0) 28.4 PG (27.0-31.0) Mean Corpuscular Hemoglobin Concent 32.3 G/DL (32.0-36.0) 33.8 G/DL (32.0-36.0) Red Cell Distribution Width 16.2 % (11.6-14.8) H 14.1 % (11.6-14.8) Platelet Count 384 K/UL (150-450) 418 K/UL (150-450) Mean Platelet Volume 7.0 FL (6.5-10.1) 6.0 FL (6.5-10.1) L Neutrophils (%) (Auto) 81.6 % (45.0-75.0) H % (45.0-75.0) Lymphocytes (%) (Auto) 10.6 % (20.0-45.0) L % (20.0-45.0) Monocytes (%) (Auto) 6.4 % (1.0-10.0) % (1.0-10.0) Eosinophils (%) (Auto) 0.5 % (0.0-3.0) % (0.0-3.0) Basophils (%) (Auto) 0.9 % (0.0-2.0) % (0.0-2.0) Differential Total Cells Counted 100 Neutrophils % (Manual) 86 % (45-75) H Lymphocytes % (Manual) 7 % (20-45) L Monocytes % (Manual) 6 % (1-10) Eosinophils % (Manual) 1 % (0-3) Basophils % (Manual) 0 % (0-2) Band Neutrophils 0 % (0-8) Platelet Estimate Adequate Platelet Morphology Normal Hypochromasia 1+ Sodium Level 144 MMOL/L (136-145) Potassium Level 4.5 MMOL/L (3.5-5.1) Chloride Level 111 MMOL/L (98-107) H Carbon Dioxide Level 29 MMOL/L (21-32) Anion Gap 4 mmol/L (5-15) L Blood Urea Nitrogen 36 mg/dL (7-18) H Creatinine 0.8 MG/DL (0.55-1.30) Estimat Glomerular Filtration Rate > 60 mL/min (>60) Glucose Level 136 MG/DL (74-106) H Calcium Level 8.5 MG/DL (8.5-10.1) Plan Problems: (1) Septic shock Assessment & Plan: Patient presented to emergency department with sepsis hypotension tachycardia lactic acidosis leukocytosis. On IV antibiotics Labs improving IV hydration Continue tube feeds advance goal as tolerated Abdominal exam does elicit patient to retract a bit but she is not tender peritonitis or without rebound or significant guarding. exam improved Likely startle effect rather than intra-abdominal pathology will follow with serial exams continue with current care plan thank you for let me participate in patient's care leukocytosis. c diff negative. blood cultures noted abx as per ID (2) Decubitus skin ulcer Assessment & Plan: 84-year-old female presented on admission with multiple decubitus skin ulcers and skin concerns. Patient identified to have a unstageable sacral lower back decubitus ulcer, periwound maceration, area of necrotic eschar soft, no drainage, no abscess, no foul odor Pt presented on admission with contractures, Multiple Pressure injuries.open DTPI sacrum.Wound is open at sacrococcygeal area(40%), with soft necrotic base ( L)5.5cm x (W)4.5cm. Surrounding base of wound is maroon and indurated. Total area of sacral DTPI measures(L) 12.5cm x (W)15cm. Non-blanching erythema periwound.In addition several small partial thickness wounds noted along Perineum.` Areas of hyperpigmentation noted to L and R trochanteric. Full thickness wound R knee.(L)1.1cm x (W)1.5cm.1 Base of wound 90% pink granulation,10% slough noted in center of wound. Borders are macerated.small amt serous exudate. No odor noted. No erythema or fluctuance noted periwound. Non-blanching erythema with fluctuance R heel. Unstageable pressure injury R hallux. Base of wound is 100% soft necrosis. Edges adherent and dry.No odor or exudate noted.Surrounding darker skin tone without erythema or fluctuance(L)2.6cm x (W)3cm. DTPI R Ankle(L)0.9cm x (W)1.6cm. Base of wound is fluctuant, maroon with marginal erythema. Periwound without erythema or fluctuance. Unstageable pressure injury distal/lateral R foot. Base of wound 100% soft necrosis with surrounding non-blanching erythema with fluctuance.(L)2cm x (W) 0.9cm. Stable dry eschar medial/lateral R foot (L)0.4cm x (W)0.8cm. Stable dry eschar lateral L heel.(L)1.9cm x (W)2.2cm. No erythema or fluctuance periwound. Unstable pressure injury medial/lateral L foot. Base of wound is 100% necrotic but dry.(L)0.7cm x (W)0.8cm. Unstageable pressure injury distal/lateral L foot. Base of wound is 100% necrotic but dry. (L)1.2cm x (W)1.6cm.non-blanching erythema without fluctuance periwound. Non-blanching erythema without fluctuance lateral L 5th metatarsal.(L)1.5cm x (W )0.5cm. Open DTPI L Hallux.Base of wound has mixed necrosis and slough with surrounding base of wound maroon with fluctuance. Non-blanching erythema without elevation in skin temp,or fluctuance periwound. Tx.plan: Cleanse Sacral wound with Saline. Apply TheraHoney. Apply Moisture Barrier Paste Periwound. Cover with Optifoam drsg. Change Daily and prn. Swab R nee with Betadine. Cover with Optifoam drsg every 3 days and prn. Swab wounds R foot with Betadine. Cover each wound with Optifoam drsg. Change every 3 days and prn. Swab wounds L foot with Betadine. Cover each wound with Optifoam drsg. Change every 3 days and prn. Reposition at least every 2hours or as tolerated. Place pillow between knees. Off-load heels with Pillow. APM/ARIEL Mattress. DAILY ESTIMATED NEEDS: Needs based on Wounds, underweight 50kg 30-35 kcals/kg [id number] total kcals 1.25-2 g protein/kg 63-100 g total protein 25-30 mL/kg [id number] total fluid mLs NUTRITION DIAGNOSIS: Increased kcal and pro needs r/t underweight status and wound healing as evidenced by pt @85% Trail Body Weight w/ multiple wounds, eval pending, pt is PEG dep. CURRENT TF:Glucerna 1.5 @60ml x20 hrs ENTERAL NUTRITION RECOMMENDATIONS: Maintain current TF as tolerated: Glucerna 1.5 @60ml/hr x20 hrs to provide 1200ml, 1800 kcal, 99g pro, 911ml free H2o -> Monitor for hypoglycemia and need to change to non carb control formula -> Flush per MD. HOB over 30 degrees ADDITIONAL RECOMMENDATIONS: 1) On iso, per SNF pt is: 65 inches + 110#/50kg 2) Wound care: add MATT in 4oz H2O BID via GT F/up w/ WC eval 3) Maintain calibrated bed scale wts 4) Monitor for continued hypoglycemic events, need for D5 or TF change Luther Mercedes Feb 08, 2020 12:54
[2020-02-08] MEDS: Acetaminophen 650mg/20.3ml GT PRN ×2 (13:42→21:59)
[2020-02-08 16:00] VITALS: BP 114/62
--- NOTE | 2020-02-08 17:31 | Infectious Diseases Prog Note ---
Assessment/Plan Assessment/Plan A) 1) citrobacter bacteremia, ? uti, ? other source, severe leukocytosis, sepsis, diarrhea 2) being ruled out for covid-19 - low clinical suspicion, results pending 3) dm, hyperlipidemia, ? htn, hypothyroidism, cva, anemia, hemiplegia, ckd, gerd , copd, chf, ppm 4) allergies - nkda, fh-nc, sh-negative, mar noted, notes and records noted 5) d/w RN P) 1) ceftriaxone and flagyl - day # 9 abx 2) await covid-[address] testing 3) consider CT abdomen and pelvis once covid-19 ruled out - rule other source of citrobacter bacteremia 4) monitor labs, leukocytosis somewhat improved 5) c.diff. negative 6) will f/u Subjective Constitutional: Denies: fever HEENT: Denies: congestion Respiratory: Denies: shortness of breath Cardiovascular: Denies: chest pain Gastrointestinal/Abdominal: Reports: diarrhea, other - + rectal tube ; Denies: nausea, vomiting Genitourinary: Reports: other - + john Neurologic: Denies: weakness Psychiatric: Reports: other - NA Skin: Denies: rash Hematologic: Denies: bleeding Musculoskeletal: Denies: pain Allergies: Coded Allergies: No Known Allergies (Unverified , 01/30/20) Objective Vital Signs Last 24 Hour Vital Signs Date Time Temp Pulse Resp B/P (MAP) Pulse Ox O2 Delivery O2 Flow Rate FiO2 02/08/20 14:12 99.8 02/08/20 13:18 100.7 02/08/20 12:00 Nasal Cannula 2.0 02/08/20 12:00 100.4 125 18 118/76 (90) 99 02/08/20 11:33 120 02/08/20 08:00 98.4 118 18 133/62 (85) 99 02/08/20 08:00 Nasal Cannula 2.0 02/08/20 07:55 115 02/08/20 04:00 Nasal Cannula 2.0 02/08/20 04:00 97.9 111 18 130/89 (103) 100 02/08/20 04:00 2.0 02/08/20 03:44 110 02/08/20 00:00 97.8 104 20 141/68 (92) 99 02/08/20 00:00 Nasal Cannula 2.0 02/08/20 00:00 2.0 02/07/20 23:52 111 02/07/20 20:00 102 02/07/20 20:00 97.5 108 18 132/75 (94) 100 02/07/20 20:00 2.0 02/07/20 20:00 Nasal Cannula 2.0 02/07/20 19:19 98 Nasal Cannula 2.0 28 Height (Feet): 5 Height (Inches): 2.00 Weight (Pounds): 128 General Appearance: no acute distress HEENT: normocephalic, atraumatic, anicteric Respiratory/Chest: crackles/rales, rhonchi - bilaterally Cardiovascular: normal rate, regular rhythm, no gallop/murmur Abdomen: normal bowel sounds, soft, non tender, no organomegaly, other - + rectal tube Genitourinary: other - + john - urine cldar Extremities: no cyanosis Skin: no rash 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 The heart size is normal. There is a right chest biventricular pacemaker Impression: No acute process Microbiology Date/Time Source Procedure Growth Status 02/03/20 04:15 Blood Blood Culture - Final NO GROWTH AFTER 5 DAYS Complete 01/30/20 15:45 Nasal Nares MRSA Culture - Final NO METHICILLIN RESISTANT STAPH AUREUS... Complete 02/04/20 19:00 Stool Clostridium difficile Toxin Assay - Final Complete 01/30/20 15:45 Rectum VRE Culture - Final NO VANCOMYCIN RESISTANT ENTEROCOCCUS ... Complete Microbiology Date/Time Source Procedure Growth Status 02/03/20 04:15 Blood Blood Culture - Final NO GROWTH AFTER 5 DAYS Complete 01/30/20 15:45 Nasal Nares MRSA Culture - Final NO METHICILLIN RESISTANT STAPH AUREUS... Complete 02/04/20 19:00 Stool Clostridium difficile Toxin Assay - Final Complete 01/30/20 15:45 Rectum VRE Culture - Final NO VANCOMYCIN RESISTANT ENTEROCOCCUS ... Complete Laboratory Tests Test 02/08/20 10:00 White Blood Count 14.2 K/UL (4.8-10.8) H Red Blood Count 3.30 M/UL (4.20-5.40) L Hemoglobin 9.4 G/DL (12.0-16.0) L Hematocrit 27.8 % (37.0-47.0) L Mean Corpuscular Volume 84 FL (80-99) Mean Corpuscular Hemoglobin 28.4 PG (27.0-31.0) Mean Corpuscular Hemoglobin Concent 33.8 G/DL (32.0-36.0) Red Cell Distribution Width 14.1 % (11.6-14.8) Platelet Count 418 K/UL (150-450) Mean Platelet Volume 6.0 FL (6.5-10.1) L Neutrophils (%) (Auto) % (45.0-75.0) Lymphocytes (%) (Auto) % (20.0-45.0) Monocytes (%) (Auto) % (1.0-10.0) Eosinophils (%) (Auto) % (0.0-3.0) Basophils (%) (Auto) % (0.0-2.0) Differential Total Cells Counted 100 Neutrophils % (Manual) 86 % (45-75) H Lymphocytes % (Manual) 7 % (20-45) L Monocytes % (Manual) 6 % (1-10) Eosinophils % (Manual) 1 % (0-3) Basophils % (Manual) 0 % (0-2) Band Neutrophils 0 % (0-8) Platelet Estimate Adequate Platelet Morphology Normal Hypochromasia 1+ Sodium Level 144 MMOL/L (136-145) Potassium Level 4.5 MMOL/L (3.5-5.1) Chloride Level 111 MMOL/L (98-107) H Carbon Dioxide Level 29 MMOL/L (21-32) Anion Gap 4 mmol/L (5-15) L Blood Urea Nitrogen 36 mg/dL (7-18) H Creatinine 0.8 MG/DL (0.55-1.30) Estimat Glomerular Filtration Rate > 60 mL/min (>60) Glucose Level 136 MG/DL (74-106) H Calcium Level 8.5 MG/DL (8.5-10.1) Current Medications Medications (Trade) Dose Ordered Sig/Moreno Route PRN Reason Start Time Stop Time Status Last Admin Dose Admin Acetaminophen (Tylenol) 650 mg Q4H PRN GT Mild Pain/Temp > 100.5 02/07/20 10:30 03/08/20 10:29 02/08/20 13:42 Atorvastatin Calcium (Lipitor) 40 mg BEDTIME ORAL 01/30/20 21:00 04/29/20 20:59 02/07/20 20:10 Ceftriaxone Sodium 1 gm/ Dextrose 50 ml @ 100 mls/hr Q24H IVPB 02/04/20 21:00 02/11/20 20:59 02/07/20 20:10 Dextrose (Dextrose 50%) 25 ml Q30M PRN IV Hypoglycemia 01/30/20 19:00 04/29/20 18:59 Dextrose (Dextrose 50%) 50 ml Q30M PRN IV Hypoglycemia 01/30/20 19:00 04/29/20 18:59 Diphenhydramine HCl (Benadryl) 25 mg Q6H PRN ORAL Itching/Pruritis 01/30/20 19:00 02/29/20 18:59 Diphenoxylate HCl/ Atropine (Lomotil) 2.5 mg Q4H PRN GT Diarrhea 02/07/20 12:30 03/08/20 12:29 02/07/20 13:44 Levothyroxine Sodium (Synthroid) 25 mcg DAILY@0630 ORAL 01/31/20 06:30 03/01/20 06:29 02/08/20 06:35 Loperamide HCl (Imodium) 2 mg PRN PRN NG Diarrhea 02/06/20 12:45 03/07/20 12:44 02/07/20 09:05 Metoprolol Succinate (Toprol XL) 25 mg DAILY ORAL 02/09/20 09:00 05/09/20 08:59 Metronidazole 100 ml @ 100 mls/hr Q8HR IVPB 02/04/20 22:00 02/11/20 21:59 02/08/20 13:10 Ondansetron HCl (Zofran) 4 mg Q6H PRN IVP Nausea & Vomiting 01/30/20 19:00 02/29/20 18:59 Pantoprazole (Protonix) 40 mg EVERY 12 HOURS IVP 02/07/20 21:00 03/08/20 20:59 02/08/20 08:13 Abiodun Jacobo MD Feb 08, 2020 17:31
[2020-02-08 20:00] VITALS: BP 130/75
[2020-02-08] MEDS: cefTRIAXone 1 GM in D5W 50 ML IVPB SCH (21:03)
[2020-02-08] MEDS: Atorvastatin 20mg tab ORAL SCH (21:04)
[2020-02-09] VITALS: BP 137/73
[2020-02-09 04:00] VITALS: BP 129/77
[2020-02-09] MEDS: Acetaminophen 650mg/20.3ml GT PRN (04:44)
[2020-02-09] MEDS: Levothyroxine 25mcg tab ORAL SCH (05:50)
[2020-02-09 06:10] LABS: BASOPHILS % (AUTO) 0.8 % (0.0-2.0); EOSINOPHILS % (AUTO) 0.7 % (0.0-3.0); LYMPHOCYTES % (AUTO) 9.8 % (20.0-45.0); MEAN CORPUSCULAR VOLUME 84 FL (80-99); MONOCYTES % (AUTO) 5.7 % (1.0-10.0); PLATELET COUNT 428 K/UL (150-450); RED BLOOD COUNT 3.22 M/UL (4.20-5.40); RED CELL DISTRIBUTION WIDTH 14.6 % (11.6-14.8); WHITE BLOOD COUNT 15.3 K/UL (4.8-10.8)
[2020-02-09 06:17] LABS: ANION GAP 5 mmol/L (5-15); BLOOD UREA NITROGEN 31 mg/dL (7-18); CALCIUM 8.3 MG/DL (8.5-10.1); CARBON DIOXIDE 28 MMOL/L (21-32); CHLORIDE 109 MMOL/L (98-107); CREATININE 0.8 MG/DL (0.55-1.30); POTASSIUM 4.5 MMOL/L (3.5-5.1); SODIUM 142 MMOL/L (136-145)
[2020-02-09 08:00] VITALS: BP 129/87
[2020-02-09] MEDS: Pantoprazole Inj IVP SCH ×2 (08:19→21:00)
[2020-02-09] MEDS ORDERED: Metoprolol Succinate XL 25mg tab ORAL SCH (09:00)
--- NOTE | 2020-02-09 11:14 | Diagnostic Imaging Report ---
EXAM: CT Abdomen and Pelvis Without Intravenous Contrast CLINICAL HISTORY: ABSCESS TECHNIQUE: Axial computed tomography images of the abdomen and pelvis without intravenous contrast. CTDI is 9.0 mGy and DLP is 425.6 mGy-cm. One or more of the following dose reduction techniques were used: automated exposure control, adjustment of the mA and/or kV according to patient size, use of iterative reconstruction technique. COMPARISON: Abdominal radiograph on 02/01/2020 FINDINGS: Limitations: Examination is limited by motion artifact. Lung bases: Mild bibasilar atelectasis. Pleural space: Trace left pleural effusion. ABDOMEN: Liver: Unremarkable. Gallbladder and bile ducts: Prior cholecystectomy. No ductal dilation. Pancreas: Unremarkable. No ductal dilation. Spleen: Unremarkable. No splenomegaly. Adrenals: Unremarkable. No mass. Kidneys and ureters: Severe left hydronephrosis versus parapelvic cysts. No definite obstructing stone. Left renal cyst. Stomach and bowel: No bowel obstruction. No mucosal thickening. PELVIS: Appendix: Normal appendix. Bladder: Mild bladder wall thickening with small gas foci in the bladder, concerning for cystitis. Please correlate with urinalysis. No stones. Reproductive: Prior hysterectomy. ABDOMEN and PELVIS: Intraperitoneal space: Unremarkable. No free air. No significant fluid collection. Bones/joints: Degenerative changes of the spine. No acute fracture. No dislocation. Soft tissues: Body wall edema. Vasculature: Atherosclerotic changes of the vasculature. No aortic aneurysm. Lymph nodes: Unremarkable. No enlarged lymph nodes. Tubes, lines and devices: Pacer wires partially visualized in the heart. Rectal tube noted. G-tube in place. IMPRESSION: 1. Examination is limited by motion artifact. 2. Trace left pleural effusion. 3. Severe left hydronephrosis versus parapelvic cysts. No definite obstructing stone. 4. Mild bladder wall thickening with small gas foci in the bladder, concerning for cystitis. Please correlate with urinalysis.
[2020-02-09 12:00] VITALS: BP 134/68
--- NOTE | 2020-02-09 12:12 | General Progress Note ---
Assessment/Plan Status: stable Assessment/Plan: 84 year old woman with history of CVA, hemiplegia, DM, COPD, CKD, hyperlipidemia , hypothyroidism, GERD, unspecified CHF, S/p PPM brought in from SNF with hypotension, found to be septic with leukocytosis and minimal pyuria #Sepsis #Citrobacter bacteremia #Hypotension #Elevated lactate, improved #Leukocytosis - remains elevated #diarrhea -continue inpatient level of care -cardiac monitoring -suspect intraabdominal source -BCx 01/29 +citrobacter -repeat BC 02/02 negative -c diff negative -Cont.imodium PRN -cont to hold anti-hypertensives -fCOVID 19 negative -CT A/p showing possible hydro and cystitis -Will consult Urology, Dr. 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 Subjective Date patient seen: Feb 09, 2020 Time patient seen: 11:58 ROS Limited/Unobtainable: Yes Allergies: Coded Allergies: No Known Allergies (Unverified , 01/30/20) Subjective Follow up for sepsis, Citrobacter bacteremia. Persistent leukocytosis. CT A/P done today showing severe left hydronephrosis versus parapelvic cysts. No definite obstructing stone + bladder wall thickening Objective Last 24 Hour Vital Signs Date Time Temp Pulse Resp B/P (MAP) Pulse Ox O2 Delivery O2 Flow Rate FiO2 02/09/20 08:19 111 129/87 02/09/20 08:00 Room Air 02/09/20 08:00 98.1 111 18 129/87 (101) 98 02/09/20 07:47 109 02/09/20 05:14 97.9 02/09/20 04:00 Nasal Cannula 2.0 02/09/20 04:00 100.0 110 18 129/77 (94) 99 02/09/20 04:00 106 02/09/20 00:00 97.7 112 18 137/73 (94) 98 02/09/20 00:00 Nasal Cannula 2.0 02/09/20 00:00 111 02/08/20 20:00 100.2 110 18 130/75 (93) 99 02/08/20 20:00 110 02/08/20 20:00 Nasal Cannula 2.0 02/08/20 16:00 Nasal Cannula 2.0 02/08/20 16:00 99.5 117 18 114/62 (79) 98 02/08/20 15:17 115 02/08/20 13:18 100.7 02/08/20 12:00 Nasal Cannula 2.0 02/08/20 12:00 100.4 125 18 118/76 (90) 99 Intake and Output 02/08/20 02/09/20 19:00 07:00 Intake Total 1220 ml 1210 ml Output Total 1200 ml 1100 ml Balance 20 ml 110 ml Free Water 400 ml 400 ml IV Total 100 ml 150 ml Tube Feeding 720 ml 660 ml Output Urine Total 1000 ml 800 ml Stool Total 200 ml 300 ml # Bowel Movements 3 3 Laboratory Tests 02/09/20 05:00: White Blood Count 15.3H, Red Blood Count 3.22L, Hemoglobin 9.0L, Hematocrit 27.0L, Mean Corpuscular Volume 84, Mean Corpuscular Hemoglobin 27.8, Mean Corpuscular Hemoglobin Concent 33.2, Red Cell Distribution Width 14.6, Platelet Count 428, Mean Platelet Volume 5.8L, Neutrophils (%) (Auto) 83.0H, Lymphocytes (%) (Auto) 9.8L, Monocytes (%) (Auto) 5.7, Eosinophils (%) (Auto) 0.7, Basophils (%) (Auto) 0.8, Sodium Level 142, Potassium Level 4.5, Chloride Level 109H, Carbon Dioxide Level 28, Anion Gap 5, Blood Urea Nitrogen 31H, Creatinine 0.8, Estimat Glomerular Filtration Rate > 60, Glucose Level 141H, Calcium Level 8.3L Height (Feet): 5 Height (Inches): 2.00 Weight (Pounds): 128 General Appearance: alert, confused Cardiovascular: normal rate, regular rhythm Respiratory/Chest: lungs clear, normal breath sounds Abdomen: non tender, soft Carmine Major MD Feb 09, 2020 12:12
--- NOTE | 2020-02-09 13:22 | Surgery Progress Note ---
Surgery Progress Note Subjective Additional Comments [place] events Objective Last 24 Hour Vital Signs Date Time Temp Pulse Resp B/P (MAP) Pulse Ox O2 Delivery O2 Flow Rate FiO2 02/09/20 12:00 97.7 100 18 134/68 (90) 98 02/09/20 12:00 Room Air 02/09/20 11:34 113 02/09/20 08:19 111 129/87 02/09/20 08:00 Room Air 02/09/20 08:00 98.1 111 18 129/87 (101) 98 02/09/20 07:47 109 02/09/20 05:14 97.9 02/09/20 04:00 Nasal Cannula 2.0 02/09/20 04:00 100.0 110 18 129/77 (94) 99 02/09/20 04:00 106 02/09/20 00:00 97.7 112 18 137/73 (94) 98 02/09/20 00:00 Nasal Cannula 2.0 02/09/20 00:00 111 02/08/20 20:00 100.2 110 18 130/75 (93) 99 02/08/20 20:00 110 02/08/20 20:00 Nasal Cannula 2.0 02/08/20 16:00 Nasal Cannula 2.0 02/08/20 16:00 99.5 117 18 114/62 (79) 98 02/08/20 15:17 115 I&O Intake and Output 02/08/20 02/09/20 19:00 07:00 Intake Total 1220 ml 1210 ml Output Total 1200 ml 1100 ml Balance 20 ml 110 ml Free Water 400 ml 400 ml IV Total 100 ml 150 ml Tube Feeding 720 ml 660 ml Output Urine Total 1000 ml 800 ml Stool Total 200 ml 300 ml # Bowel Movements 3 3 Dressing: saturated Wound: other Drains: other Cardiovascular: RSR Respiratory: decreased breath sounds Abdomen: soft, non-tender, present bowel sounds Extremities: no cyanosis Laboratory Tests Test 02/09/20 05:00 White Blood Count 15.3 K/UL (4.8-10.8) H Red Blood Count 3.22 M/UL (4.20-5.40) L Hemoglobin 9.0 G/DL (12.0-16.0) L Hematocrit 27.0 % (37.0-47.0) L Mean Corpuscular Volume 84 FL (80-99) Mean Corpuscular Hemoglobin 27.8 PG (27.0-31.0) Mean Corpuscular Hemoglobin Concent 33.2 G/DL (32.0-36.0) Red Cell Distribution Width 14.6 % (11.6-14.8) Platelet Count 428 K/UL (150-450) Mean Platelet Volume 5.8 FL (6.5-10.1) L Neutrophils (%) (Auto) 83.0 % (45.0-75.0) H Lymphocytes (%) (Auto) 9.8 % (20.0-45.0) L Monocytes (%) (Auto) 5.7 % (1.0-10.0) Eosinophils (%) (Auto) 0.7 % (0.0-3.0) Basophils (%) (Auto) 0.8 % (0.0-2.0) Sodium Level 142 MMOL/L (136-145) Potassium Level 4.5 MMOL/L (3.5-5.1) Chloride Level 109 MMOL/L (98-107) H Carbon Dioxide Level 28 MMOL/L (21-32) Anion Gap 5 mmol/L (5-15) Blood Urea Nitrogen 31 mg/dL (7-18) H Creatinine 0.8 MG/DL (0.55-1.30) Estimat Glomerular Filtration Rate > 60 mL/min (>60) Glucose Level 141 MG/DL (74-106) H Calcium Level 8.3 MG/DL (8.5-10.1) L Plan Problems: (1) Septic shock Assessment & Plan: Patient presented to emergency department with sepsis hypotension tachycardia lactic acidosis leukocytosis. On IV antibiotics Labs improving IV hydration Continue tube feeds advance goal as tolerated Abdominal exam does elicit patient to retract a bit but she is not tender peritonitis or without rebound or significant guarding. exam improved Likely startle effect rather than intra-abdominal pathology will follow with serial exams continue with current care plan thank you for let me participate in patient's care leukocytosis. c diff negative. blood cultures noted abx as per ID (2) Decubitus skin ulcer Assessment & Plan: 84-year-old female presented on admission with multiple decubitus skin ulcers and skin concerns. Patient identified to have a unstageable sacral lower back decubitus ulcer, periwound maceration, area of necrotic eschar soft, no drainage, no abscess, no foul odor Pt presented on admission with contractures, Multiple Pressure injuries.open DTPI sacrum.Wound is open at sacrococcygeal area(40%), with soft necrotic base ( L)5.5cm x (W)4.5cm. Surrounding base of wound is maroon and indurated. Total area of sacral DTPI measures(L) 12.5cm x (W)15cm. Non-blanching erythema periwound.In addition several small partial thickness wounds noted along Perineum.` Areas of hyperpigmentation noted to L and R trochanteric. Full thickness wound R knee.(L)1.1cm x (W)1.5cm.1 Base of wound 90% pink granulation,10% slough noted in center of wound. Borders are macerated.small amt serous exudate. No odor noted. No erythema or fluctuance noted periwound. Non-blanching erythema with fluctuance R heel. Unstageable pressure injury R hallux. Base of wound is 100% soft necrosis. Edges adherent and dry.No odor or exudate noted.Surrounding darker skin tone without erythema or fluctuance(L)2.6cm x (W)3cm. DTPI R Ankle(L)0.9cm x (W)1.6cm. Base of wound is fluctuant, maroon with marginal erythema. Periwound without erythema or fluctuance. Unstageable pressure injury distal/lateral R foot. Base of wound 100% soft necrosis with surrounding non-blanching erythema with fluctuance.(L)2cm x (W) 0.9cm. Stable dry eschar medial/lateral R foot (L)0.4cm x (W)0.8cm. Stable dry eschar lateral L heel.(L)1.9cm x (W)2.2cm. No erythema or fluctuance periwound. Unstable pressure injury medial/lateral L foot. Base of wound is 100% necrotic but dry.(L)0.7cm x (W)0.8cm. Unstageable pressure injury distal/lateral L foot. Base of wound is 100% necrotic but dry. (L)1.2cm x (W)1.6cm.non-blanching erythema without fluctuance periwound. Non-blanching erythema without fluctuance lateral L 5th metatarsal.(L)1.5cm x (W )0.5cm. Open DTPI L Hallux.Base of wound has mixed necrosis and slough with surrounding base of wound maroon with fluctuance. Non-blanching erythema without elevation in skin temp,or fluctuance periwound. Tx.plan: Cleanse Sacral wound with Saline. Apply TheraHoney. Apply Moisture Barrier Paste Periwound. Cover with Optifoam drsg. Change Daily and prn. Swab R nee with Betadine. Cover with Optifoam drsg every 3 days and prn. Swab wounds R foot with Betadine. Cover each wound with Optifoam drsg. Change every 3 days and prn. Swab wounds L foot with Betadine. Cover each wound with Optifoam drsg. Change every 3 days and prn. Reposition at least every 2hours or as tolerated. Place pillow between knees. Off-load heels with Pillow. APM/ARIEL Mattress. DAILY ESTIMATED NEEDS: Needs based on Wounds, underweight 50kg 30-35 kcals/kg 4124-6265 total kcals 1.25-2 g protein/kg 63-100 g total protein 25-30 mL/kg 8038-5513 total fluid mLs NUTRITION DIAGNOSIS: Increased kcal and pro needs r/t underweight status and wound healing as evidenced by pt @85% [place] Body Weight w/ multiple wounds, eval pending, pt is PEG dep. CURRENT TF:Glucerna 1.5 @60ml x20 hrs ENTERAL NUTRITION RECOMMENDATIONS: Maintain current TF as tolerated: Glucerna 1.5 @60ml/hr x20 hrs to provide 1200ml, 1800 kcal, 99g pro, 911ml free H2o -> Monitor for hypoglycemia and need to change to non carb control formula -> Flush per MD. HOB over 30 degrees ADDITIONAL RECOMMENDATIONS: 1) On iso, per SNF pt is: 65 inches + 110#/50kg 2) Wound care: add MATT in 4oz H2O BID via GT F/up w/ WC eval 3) Maintain calibrated bed scale wts 4) Monitor for continued hypoglycemic events, need for D5 or TF change Luther Mercedes Feb 09, 2020 13:22
[2020-02-09] MEDS ORDERED: Acetaminophen 650mg/20.3ml GT PRN (14:30)
[2020-02-09] MEDS ORDERED: DiphenhydrAMINE 25mg Tab ORAL PRN (15:00)
[2020-02-09] MEDS ORDERED: Lomotil 2.5mg tab GT PRN (15:00)
[2020-02-09 16:00] VITALS: BP 122/85
--- NOTE | 2020-02-09 16:20 | General Progress Note ---
Assessment/Plan Status: stable Assessment/Plan: Assessment (1) Diarrhea ICD Codes: R19.7 - Diarrhea, unspecified SNOMED: 44561448 (2) GI (gastrointestinal bleed) and epistaxis ICD Codes: K92.2 - Gastrointestinal hemorrhage, unspecified SNOMED: 91385083 (3) Elevated troponin ICD Codes: R79.89 - Other specified abnormal findings of blood chemistry; R65.21 - Severe sepsis with septic shock SNOMED: 097546052, 627778804, 260764288 (4) Anemia ICD Codes: D64.9 - Anemia, unspecified SNOMED: 839010951 (5) Septic shock ICD Codes: A41.9 - Sepsis, unspecified organism; R65.21 - Severe sepsis with septic shock SNOMED: 70626910 Recommendations off heparin diarrhea is better with Lomotil and Imodium neg stool C.diff ppi change TF to Glucerna 1.2 s/p blood transfusion COVID isolation GI procedures if needed Subjective Allergies: Coded Allergies: No Known Allergies (Unverified , 01/30/20) Subjective above noted d/w RN patietn OB (+) also with nose bleed last night heparin held overnight Objective Last 24 Hour Vital Signs Date Time Temp Pulse Resp B/P (MAP) Pulse Ox O2 Delivery O2 Flow Rate FiO2 02/09/20 12:00 97.7 100 18 134/68 (90) 98 02/09/20 12:00 Room Air 02/09/20 11:34 113 02/09/20 08:19 111 129/87 02/09/20 08:00 Room Air 02/09/20 08:00 98.1 111 18 129/87 (101) 98 02/09/20 07:47 109 02/09/20 05:14 97.9 02/09/20 04:00 Nasal Cannula 2.0 02/09/20 04:00 100.0 110 18 129/77 (94) 99 02/09/20 04:00 106 02/09/20 00:00 97.7 112 18 137/73 (94) 98 02/09/20 00:00 Nasal Cannula 2.0 02/09/20 00:00 111 02/08/20 20:00 100.2 110 18 130/75 (93) 99 02/08/20 20:00 110 02/08/20 20:00 Nasal Cannula 2.0 Intake and Output 02/08/20 02/09/20 19:00 07:00 Intake Total 1220 ml 1260 ml Output Total 1200 ml 1100 ml Balance 20 ml 160 ml Free Water 400 ml 450 ml IV Total 100 ml 150 ml Tube Feeding 720 ml 660 ml Output Urine Total 1000 ml 800 ml Stool Total 200 ml 300 ml # Bowel Movements 3 3 Laboratory Tests 02/09/20 05:00: White Blood Count 15.3H, Red Blood Count 3.22L, Hemoglobin 9.0L, Hematocrit 27.0L, Mean Corpuscular Volume 84, Mean Corpuscular Hemoglobin 27.8, Mean Corpuscular Hemoglobin Concent 33.2, Red Cell Distribution Width 14.6, Platelet Count 428, Mean Platelet Volume 5.8L, Neutrophils (%) (Auto) 83.0H, Lymphocytes (%) (Auto) 9.8L, Monocytes (%) (Auto) 5.7, Eosinophils (%) (Auto) 0.7, Basophils (%) (Auto) 0.8, Sodium Level 142, Potassium Level 4.5, Chloride Level 109H, Carbon Dioxide Level 28, Anion Gap 5, Blood Urea Nitrogen 31H, Creatinine 0.8, Estimat Glomerular Filtration Rate > 60, Glucose Level 141H, Calcium Level 8.3L Height (Feet): 5 Height (Inches): 2.00 Weight (Pounds): 128 Objective Elderly AA woman NCAT supple CTA RR abd soft (+) rectal tube Radha Baker MD Feb 09, 2020 16:20
[2020-02-09 20:00] VITALS: BP 131/83
--- NOTE | 2020-02-09 20:08 | Nephrology Progress Note ---
Assessment/Plan Plan #hypernatremia due to free water deficit of close to 3L #sepsis #h/o CVA with hemiplegia #DM #COPD # hyperlipidemia #hypothyroidism # GERD # unspecified CHF, S/p PPM - increased free water flushes to [id number] - monitor bmp daily - continue abx - avoid nephrotoxins - strict I&Os - daily weights - monitor lytes Subjective ROS Limited/Unobtainable: Yes Subjective No acute events overnight continues with loose stools labs reviewed C diff neg Objective Objective Last 24 Hour Vital Signs Date Time Temp Pulse Resp B/P (MAP) Pulse Ox O2 Delivery O2 Flow Rate FiO2 02/09/20 16:00 103 02/09/20 16:00 98.3 103 16 122/85 (97) 97 02/09/20 12:00 97.7 100 18 134/68 (90) 98 02/09/20 12:00 Room Air 02/09/20 11:34 113 02/09/20 08:19 111 129/87 02/09/20 08:00 Room Air 02/09/20 08:00 98.1 111 18 129/87 (101) 98 02/09/20 07:47 109 02/09/20 05:14 97.9 02/09/20 04:00 Nasal Cannula 2.0 02/09/20 04:00 100.0 110 18 129/77 (94) 99 02/09/20 04:00 106 02/09/20 00:00 97.7 112 18 137/73 (94) 98 02/09/20 00:00 Nasal Cannula 2.0 02/09/20 00:00 111 Intake and Output 02/08/20 02/09/20 19:00 07:00 Intake Total 1220 ml 1260 ml Output Total 1200 ml 1100 ml Balance 20 ml 160 ml Free Water 400 ml 450 ml IV Total 100 ml 150 ml Tube Feeding 720 ml 660 ml Output Urine Total 1000 ml 800 ml Stool Total 200 ml 300 ml # Bowel Movements 3 3 Laboratory Tests 02/09/20 05:00: White Blood Count 15.3H, Red Blood Count 3.22L, Hemoglobin 9.0L, Hematocrit 27.0L, Mean Corpuscular Volume 84, Mean Corpuscular Hemoglobin 27.8, Mean Corpuscular Hemoglobin Concent 33.2, Red Cell Distribution Width 14.6, Platelet Count 428, Mean Platelet Volume 5.8L, Neutrophils (%) (Auto) 83.0H, Lymphocytes (%) (Auto) 9.8L, Monocytes (%) (Auto) 5.7, Eosinophils (%) (Auto) 0.7, Basophils (%) (Auto) 0.8, Sodium Level 142, Potassium Level 4.5, Chloride Level 109H, Carbon Dioxide Level 28, Anion Gap 5, Blood Urea Nitrogen 31H, Creatinine 0.8, Estimat Glomerular Filtration Rate > 60, Glucose Level 141H, Calcium Level 8.3L Height (Feet): 5 Height (Inches): 2.00 Weight (Pounds): 128 Objective General Appearance: NAD, otherwise awake, alert, confused Neck: normal alignment, supple CV: RRR Respiratory: lungs clear, normal breath sounds, no respiratory distress Abdomen: non tender, soft, +PEG tube, c/d/i Ext: Contracted bilaterally, multiple abrasions wrapped in bandages C/D/I Cathy Fuller M.D. Feb 09, 2020 20:08
[2020-02-09] MEDS: Atorvastatin 20mg tab ORAL SCH (21:00)
[2020-02-09] MEDS ORDERED: cefTRIAXone 1 GM in D5W 50 ML IVPB SCH (21:00)
--- NOTE | 2020-02-09 21:30 | Neurology Progress Note ---
Interim History Interim History ROS Limited/Unobtainable: Yes Interim History ct with left hydro. Remains lethargic Objective Physical Exam Last Vital Signs Date Time Temp Pulse Resp B/P (MAP) Pulse Ox O2 Delivery O2 Flow Rate FiO2 02/09/20 20:00 98.3 129 18 131/83 (99) 94 02/09/20 12:00 Room Air 02/09/20 04:00 2.0 02/07/20 19:19 28 Laboratory Tests Test 02/09/20 05:00 White Blood Count 15.3 K/UL (4.8-10.8) H Red Blood Count 3.22 M/UL (4.20-5.40) L Hemoglobin 9.0 G/DL (12.0-16.0) L Hematocrit 27.0 % (37.0-47.0) L Mean Corpuscular Volume 84 FL (80-99) Mean Corpuscular Hemoglobin 27.8 PG (27.0-31.0) Mean Corpuscular Hemoglobin Concent 33.2 G/DL (32.0-36.0) Red Cell Distribution Width 14.6 % (11.6-14.8) Platelet Count 428 K/UL (150-450) Mean Platelet Volume 5.8 FL (6.5-10.1) L Neutrophils (%) (Auto) 83.0 % (45.0-75.0) H Lymphocytes (%) (Auto) 9.8 % (20.0-45.0) L Monocytes (%) (Auto) 5.7 % (1.0-10.0) Eosinophils (%) (Auto) 0.7 % (0.0-3.0) Basophils (%) (Auto) 0.8 % (0.0-2.0) Sodium Level 142 MMOL/L (136-145) Potassium Level 4.5 MMOL/L (3.5-5.1) Chloride Level 109 MMOL/L (98-107) H Carbon Dioxide Level 28 MMOL/L (21-32) Anion Gap 5 mmol/L (5-15) Blood Urea Nitrogen 31 mg/dL (7-18) H Creatinine 0.8 MG/DL (0.55-1.30) Estimat Glomerular Filtration Rate > 60 mL/min (>60) Glucose Level 141 MG/DL (74-106) H Calcium Level 8.3 MG/DL (8.5-10.1) L Head: normocophalic, atraumatic Neck: no rigidity EENT: benign Neurologic Exam Sensory: other - cc 35 min Objective lethargic, minimal withdraw in all 4 cc 35 min Impression/Recommendations Problems: (1) Septic shock (2) Anemia (3) Elevated troponin (4) Sepsis (5) Decubitus skin ulcer Status: stable Diagnostic Impression Acute encephalopathy in the context of sepsis Dementia, likely vascular Hx of strokes Monitor neuro exam Delirium precautions atb broad spectrum asa daily Luis Nash MD Feb 09, 2020 21:30
--- NOTE | 2020-02-09 22:14 | Consultation ---
DATE OF CONSULTATION: 02/09/2020 CONSULTING PHYSICIAN: Timothy Leos M.D. REFERRING PHYSICIAN: Carmine Pang M.D. REASON FOR CONSULTATION: For evaluation of hydronephrosis. HISTORY OF PRESENT ILLNESS: This is an 84-year-old female that is a resident of a care home. She was admitted with hypotension. She was noted to have sepsis with positive blood cultures. She had a workup including a CT scan of the abdomen and pelvis, which showed left-sided hydronephrosis. Urology evaluation has been requested. I am not able to get much history from the patient. Most of the history was obtained from the chart. At this time, the patient does not appear to be in distress or having any flank pain. She has a Tovar catheter indwelling currently. PAST MEDICAL HISTORY: Significant for CVA, hemiplegia, diabetes, COPD, hyperlipidemia, hypothyroidism, and GERD. PAST SURGICAL HISTORY: Unknown. MEDICATIONS: Current medication list in the hospital was reviewed. ALLERGIES: No known drug allergies. SOCIAL HISTORY: Resident of a care home. REVIEW OF SYSTEMS: As above. PHYSICAL EXAMINATION: GENERAL: An elderly female, cachectic, appears contracted. VITAL SIGNS: Temperature is 97.7, blood pressure 134/68, pulse 100, and respirations 18. HEENT: Normocephalic. NECK: Supple. ABDOMEN: Soft. GENITOURINARY: Reveals Tovar in place. Urine is yellowish evangelina. EXTREMITIES: Contracted. LABORATORY DATA: BUN is 31, creatinine 0.8. White count is 15.3, hemoglobin 9.0, and platelets . Admission UA showed 3+ protein, 4+ blood, 3+ leukocyte esterase. I do not see a urine culture on record. She did have a blood culture from admission that showed Citrobacter koseri. She had a followup blood culture from the that was negative. DIAGNOSTIC IMAGING STUDIES: The patient had a CT scan of the abdomen and pelvis earlier today. This was a noncontrast study and there was mention of severe left-sided hydronephrosis versus parapelvic renal cyst. No stones. Possible cystitis with bladder wall thickening. IMPRESSION: 1. Possible left-sided hydronephrosis versus parapelvic cyst. 2. Urinary retention. 3. Neurogenic bladder. 4. Proteinuria. 5. Hematuria. 6. Pyuria. 7. Sepsis history. 8. Cystitis. PLAN AND DISCUSSION: Again, it is questionable left-sided hydronephrosis versus parapelvic cyst and the only way to tell the difference is to do a study with IV contrast. If this is hydronephrosis, it could be a chronic UPJ obstruction and at this time the patient appears to be asymptomatic. I am not sure if this sepsis is a related. However, if there is no other possible source and she continues to have a persistent leukocytosis, we can consider proceeding with CT with IV contrast and in fact if she does have hydronephrosis, we can consider nephrostomy tube if necessary and medically feasible given her other comorbidities. Tovar catheter is to remain indwelling. She is on antibiotics per ID. I will follow the patient and any other recommendations will be forthcoming. Thank you for this consultation. Timothy Leos M.D. DR: MIRIAN JOB#: [id number] CC:
[2020-02-10] VITALS (7 sets, daily range): BP systolic 117–158; BP diastolic 50–85
[2020-02-10] MEDS: Levothyroxine 25mcg tab ORAL SCH (06:17)
[2020-02-10 07:44] LABS: BASOPHILS % (AUTO) 0.5 % (0.0-2.0); EOSINOPHILS % (AUTO) 0.6 % (0.0-3.0); HEMATOCRIT 28.1 % (37.0-47.0); HEMOGLOBIN 9.4 G/DL (12.0-16.0); LYMPHOCYTES % (AUTO) 9.8 % (20.0-45.0); MEAN CORPUSCULAR VOLUME 83 FL (80-99); MONOCYTES % (AUTO) 6.5 % (1.0-10.0); NEUTROPHILS % (AUTO) 82.6 % (45.0-75.0); PLATELET COUNT 489 K/UL (150-450); RED BLOOD COUNT 3.38 M/UL (4.20-5.40); RED CELL DISTRIBUTION WIDTH 13.8 % (11.6-14.8); WHITE BLOOD COUNT 14.4 K/UL (4.8-10.8)
[2020-02-10 08:18] LABS: ANION GAP 8 mmol/L (5-15); BLOOD UREA NITROGEN 34 mg/dL (7-18); CALCIUM 8.4 MG/DL (8.5-10.1); CARBON DIOXIDE 27 MMOL/L (21-32); CHLORIDE 108 MMOL/L (98-107); POTASSIUM 4.2 MMOL/L (3.5-5.1); SODIUM 143 MMOL/L (136-145)
[2020-02-10] MEDS: Metoprolol Succinate XL 25mg tab ORAL SCH (09:28)
[2020-02-10] MEDS: Pantoprazole Inj IVP SCH ×2 (09:29→22:05)
--- NOTE | 2020-02-10 09:51 | General Progress Note ---
Assessment/Plan Status: stable Assessment/Plan: 84 year old woman with history of CVA, hemiplegia, DM, COPD, CKD, hyperlipidemia , hypothyroidism, GERD, unspecified CHF, S/p PPM brought in from SNF with hypotension, found to be septic with leukocytosis and minimal pyuria #Sepsis #Citrobacter bacteremia #Hypotension #Elevated lactate, improved #Leukocytosis - remains elevated #diarrhea -continue inpatient level of care -cardiac monitoring -suspect intraabdominal source -BCx 01/29 +citrobacter -repeat BC 02/02 negative -c diff negative -Cont.imodium PRN -cont to hold anti-hypertensives -fCOVID 19 negative -CT A/p showing possible hydro and cystitis -Will consult Urology, Dr. Leos #HTN #HLD #Elevated BNP #S/p PPM #Sinus tachycardia -cont Toprol -monitor closely for evidence of fluid overload -Echo w/normal EF -EP consulted #Hypernatremia - resolved #Unspecified CKD -FWF at 200 cc q6 hr -monitor renal function -Nephro following, appreciate recs #Hypothyroidism -cont levothyroxine #Decubitus Ulcer -Wound care follwing, appreciate recs #Dementia #h/o CVA -AOx1 at b/l -supportive care, monitor mentation -fall precautions, aspiration precautions -PT/OT/BACTERIOLOGY RESEARCH ASSISTANT -Frequent orienting -Neurology following: recs appreciated I spent 35 minutes on this patient's case, and >50% was dedicated to counseling and/or care coordination. Subjective Date patient seen: Feb 10, 2020 Time patient seen: 09:34 Allergies: Coded Allergies: No Known Allergies (Unverified , 01/30/20) Subjective Follow up for sepsis, Citrobacter bacteremia. Persistent leukocytosis. Tachycardic to 120s, paced rhythm, afebrile. Seen by Urology regarding possible hydronephrosis on CT Objective Last 24 Hour Vital Signs Date Time Temp Pulse Resp B/P (MAP) Pulse Ox O2 Delivery O2 Flow Rate FiO2 02/10/20 04:00 112 02/10/20 04:00 98.8 121 18 130/73 (92) 91 02/10/20 00:22 97.9 86 16 145/56 (85) 92 02/10/20 00:00 131 02/09/20 21:00 Room Air 02/09/20 20:00 98.3 129 18 131/83 (99) 94 02/09/20 20:00 127 02/09/20 16:00 103 02/09/20 16:00 98.3 103 16 122/85 (97) 97 02/09/20 12:00 97.7 100 18 134/68 (90) 98 02/09/20 12:00 Room Air 02/09/20 11:34 113 Intake and Output 02/09/20 02/10/20 19:00 07:00 Intake Total 930 ml 50 ml Output Total 5600 ml 200 ml Balance -4670 ml -150 ml Free Water 450 ml IV Total 50 ml Tube Feeding 480 ml Output Urine Total 5450 ml 200 ml Stool Total 150 ml # Bowel Movements 2 1 Laboratory Tests 02/10/20 05:30: White Blood Count 14.4H, Red Blood Count 3.38L, Hemoglobin 9.4L, Hematocrit 28.1L, Mean Corpuscular Volume 83, Mean Corpuscular Hemoglobin 27.9, Mean Corpuscular Hemoglobin Concent 33.5, Red Cell Distribution Width 13.8, Platelet Count 489H, Mean Platelet Volume 5.7L, Neutrophils (%) (Auto) 82.6H, Lymphocytes (%) (Auto) 9.8L, Monocytes (%) (Auto) 6.5, Eosinophils (%) (Auto) 0.6, Basophils (%) (Auto) 0.5, Sodium Level 143, Potassium Level 4.2, Chloride Level 108H, Carbon Dioxide Level 27, Anion Gap 8, Blood Urea Nitrogen 34H, Creatinine 1.0, Estimat Glomerular Filtration Rate > 60, Glucose Level 146H, Calcium Level 8.4L Height (Feet): 5 Height (Inches): 2.00 Weight (Pounds): 128 General Appearance: alert, confused Neck: normal alignment, normal inspection Cardiovascular: regular rhythm, tachycardia Respiratory/Chest: lungs clear, normal breath sounds Abdomen: non tender, soft Carmine Major MD Feb 10, 2020 09:51
--- NOTE | 2020-02-10 11:20 | Urology Progress Note ---
Assessment/Plan Status: stable Assessment/Plan: 1. Possible left-sided hydronephrosis versus parapelvic cyst. 2. Urinary retention. 3. Neurogenic bladder. 4. Proteinuria. 5. Hematuria. 6. Pyuria. 7. Sepsis history. 8. Cystitis. monitor clinically john indwelling hand irrigated and do PRN monitor renal fxn and WBC consider CT A/P with IV contrast cysto at some point on abx voiding trial later Subjective Allergies: Coded Allergies: No Known Allergies (Unverified , 01/30/20) Subjective all noted Objective Last 24 Hour Vital Signs Date Time Temp Pulse Resp B/P (MAP) Pulse Ox O2 Delivery O2 Flow Rate FiO2 02/10/20 09:28 112 130/73 02/10/20 09:00 Room Air 02/10/20 08:00 117 02/10/20 08:00 97.1 126 20 137/77 (97) 94 02/10/20 04:00 112 02/10/20 04:00 98.8 121 18 130/73 (92) 91 02/10/20 00:22 97.9 86 16 145/56 (85) 92 02/10/20 00:00 131 02/09/20 21:00 Room Air 02/09/20 20:00 98.3 129 18 131/83 (99) 94 02/09/20 20:00 127 02/09/20 16:00 103 02/09/20 16:00 98.3 103 16 122/85 (97) 97 02/09/20 12:00 97.7 100 18 134/68 (90) 98 02/09/20 12:00 Room Air 02/09/20 11:34 113 Intake and Output 02/09/20 02/10/20 19:00 07:00 Intake Total 930 ml 50 ml Output Total 5600 ml 200 ml Balance -4670 ml -150 ml Free Water 450 ml IV Total 50 ml Tube Feeding 480 ml Output Urine Total 5450 ml 200 ml Stool Total 150 ml # Bowel Movements 2 1 Microbiology Date/Time Source Procedure Growth Status 02/03/20 04:15 Blood Blood Culture - Final NO GROWTH AFTER 5 DAYS Complete 01/30/20 15:45 Nasal Nares MRSA Culture - Final NO METHICILLIN RESISTANT STAPH AUREUS... Complete 02/04/20 19:00 Stool Clostridium difficile Toxin Assay - Final Complete 01/30/20 15:45 Rectum VRE Culture - Final NO VANCOMYCIN RESISTANT ENTEROCOCCUS ... Complete Current Medications Medications (Trade) Dose Ordered Sig/Moreno Route PRN Reason Start Time Stop Time Status Last Admin Dose Admin Acetaminophen (Tylenol) 650 mg Q4H PRN GT Mild Pain/Temp > 100.5 02/09/20 14:30 03/08/20 10:29 Atorvastatin Calcium (Lipitor) 40 mg BEDTIME ORAL 02/09/20 21:00 04/29/20 20:59 02/09/20 21:00 Barium Sulfate (Readi-Cat 2) 450 ml NOW PRN ORAL Radiology Procedure 02/10/20 09:00 02/11/20 08:46 Ceftriaxone Sodium 1 gm/ Dextrose 50 ml @ 100 mls/hr Q24H IVPB 02/09/20 21:00 02/11/20 20:59 02/09/20 21:00 Dextrose (Dextrose 50%) 25 ml Q30M PRN IV Hypoglycemia 02/09/20 14:30 04/29/20 18:59 Dextrose (Dextrose 50%) 50 ml Q30M PRN IV Hypoglycemia 02/09/20 14:30 04/29/20 18:59 Diphenhydramine HCl (Benadryl) 25 mg Q6H PRN ORAL Itching/Pruritis 02/09/20 15:00 03/10/20 14:59 Diphenoxylate HCl/ Atropine (Lomotil) 2.5 mg Q4H PRN GT Diarrhea 02/09/20 15:00 03/08/20 14:59 Levothyroxine Sodium (Synthroid) 25 mcg DAILY@0630 ORAL 02/10/20 06:30 03/01/20 06:29 02/10/20 06:17 Loperamide HCl (Imodium) 2 mg Q3H PRN NG Diarrhea 02/10/20 12:45 03/11/20 12:44 Metoprolol Succinate (Toprol XL) 25 mg DAILY ORAL 02/10/20 09:00 05/09/20 08:59 02/10/20 09:28 Ondansetron HCl (Zofran) 4 mg Q6H PRN IVP Nausea & Vomiting 02/09/20 15:00 02/29/20 14:59 Pantoprazole (Protonix) 40 mg EVERY 12 HOURS IVP 02/09/20 21:00 03/08/20 20:59 02/10/20 09:29 Laboratory Tests 02/10/20 05:30: White Blood Count 14.4H, Red Blood Count 3.38L, Hemoglobin 9.4L, Hematocrit 28.1L, Mean Corpuscular Volume 83, Mean Corpuscular Hemoglobin 27.9, Mean Corpuscular Hemoglobin Concent 33.5, Red Cell Distribution Width 13.8, Platelet Count 489H, Mean Platelet Volume 5.7L, Neutrophils (%) (Auto) 82.6H, Lymphocytes (%) (Auto) 9.8L, Monocytes (%) (Auto) 6.5, Eosinophils (%) (Auto) 0.6, Basophils (%) (Auto) 0.5, Sodium Level 143, Potassium Level 4.2, Chloride Level 108H, Carbon Dioxide Level 27, Anion Gap 8, Blood Urea Nitrogen 34H, Creatinine 1.0, Estimat Glomerular Filtration Rate > 60, Glucose Level 146H, Calcium Level 8.4L Height (Feet): 5 Height (Inches): 2.00 Weight (Pounds): 128 Objective exam stable Timothy Leos MD Feb 10, 2020 11:20
--- NOTE | 2020-02-10 12:13 | Nephrology Progress Note ---
Assessment/Plan Plan #hypernatremia due to free water deficit of close to 3L #sepsis due to Citrobacter bacteremia #h/o CVA with hemiplegia #DM #COPD # hyperlipidemia #hypothyroidism # GERD # unspecified CHF, S/p PPM # possible hydronephrosis on CT - increased free water flushes to [id number] - monitor bmp daily - continue abx - avoid nephrotoxins - strict I&Os - daily weights - monitor lytes - urology eval - consider CT with IV contrast Subjective Subjective No acute events overnight continues with loose stools labs reviewed C diff neg Seen by Urology regarding possible hydronephrosis on CT Objective Objective Last 24 Hour Vital Signs Date Time Temp Pulse Resp B/P (MAP) Pulse Ox O2 Delivery O2 Flow Rate FiO2 02/10/20 09:28 112 130/73 02/10/20 09:00 Room Air 02/10/20 08:00 117 02/10/20 08:00 97.1 126 20 137/77 (97) 94 02/10/20 04:00 112 02/10/20 04:00 98.8 121 18 130/73 (92) 91 02/10/20 00:22 97.9 86 16 145/56 (85) 92 02/10/20 00:00 131 02/09/20 21:00 Room Air 02/09/20 20:00 98.3 129 18 131/83 (99) 94 02/09/20 20:00 127 02/09/20 16:00 103 02/09/20 16:00 98.3 103 16 122/85 (97) 97 Intake and Output 02/09/20 02/10/20 19:00 07:00 Intake Total 930 ml 50 ml Output Total 5600 ml 200 ml Balance -4670 ml -150 ml Free Water 450 ml IV Total 50 ml Tube Feeding 480 ml Output Urine Total 5450 ml 200 ml Stool Total 150 ml # Bowel Movements 2 1 Laboratory Tests 02/10/20 05:30: White Blood Count 14.4H, Red Blood Count 3.38L, Hemoglobin 9.4L, Hematocrit 28.1L, Mean Corpuscular Volume 83, Mean Corpuscular Hemoglobin 27.9, Mean Corpuscular Hemoglobin Concent 33.5, Red Cell Distribution Width 13.8, Platelet Count 489H, Mean Platelet Volume 5.7L, Neutrophils (%) (Auto) 82.6H, Lymphocytes (%) (Auto) 9.8L, Monocytes (%) (Auto) 6.5, Eosinophils (%) (Auto) 0.6, Basophils (%) (Auto) 0.5, Sodium Level 143, Potassium Level 4.2, Chloride Level 108H, Carbon Dioxide Level 27, Anion Gap 8, Blood Urea Nitrogen 34H, Creatinine 1.0, Estimat Glomerular Filtration Rate > 60, Glucose Level 146H, Calcium Level 8.4L Height (Feet): 5 Height (Inches): 2.00 Weight (Pounds): 128 Objective General Appearance: NAD, otherwise awake, alert, confused Neck: normal alignment, supple CV: RRR Respiratory: lungs clear, normal breath sounds, no respiratory distress Abdomen: non tender, soft, +PEG tube, c/d/i Ext: Contracted bilaterally, multiple abrasions wrapped in bandages C/D/I Cathy Fuller M.D. Feb 10, 2020 12:13
--- NOTE | 2020-02-10 13:00 | General Progress Note ---
Assessment/Plan Status: stable Assessment/Plan: Assessment (1) Diarrhea ICD Codes: R19.7 - Diarrhea, unspecified SNOMED: 54188474 (2) GI (gastrointestinal bleed) and epistaxis ICD Codes: K92.2 - Gastrointestinal hemorrhage, unspecified SNOMED: 42582639 (3) Elevated troponin ICD Codes: R79.89 - Other specified abnormal findings of blood chemistry; R65.21 - Severe sepsis with septic shock SNOMED: 721642723, 086551876, 414616046 (4) Anemia ICD Codes: D64.9 - Anemia, unspecified SNOMED: 604923007 (5) Septic shock ICD Codes: A41.9 - Sepsis, unspecified organism; R65.21 - Severe sepsis with septic shock SNOMED: 98527139 Recommendations follow stool volume - declining neg stool C.diff ppi change TF to Glucerna 1.2 s/p blood transfusion - H&H stable GI procedures if needed Subjective Allergies: Coded Allergies: No Known Allergies (Unverified , 01/30/20) Subjective above noted d/w RN Tolerating TF liquid stool in rectal tube Objective Last 24 Hour Vital Signs Date Time Temp Pulse Resp B/P (MAP) Pulse Ox O2 Delivery O2 Flow Rate FiO2 02/10/20 12:00 122 02/10/20 12:00 97.9 126 20 138/83 (101) 99 02/10/20 09:28 112 130/73 02/10/20 09:00 Room Air 02/10/20 08:00 117 02/10/20 08:00 97.1 126 20 137/77 (97) 94 02/10/20 04:00 112 02/10/20 04:00 98.8 121 18 130/73 (92) 91 02/10/20 00:22 97.9 86 16 145/56 (85) 92 02/10/20 00:00 131 02/09/20 21:00 Room Air 02/09/20 20:00 98.3 129 18 131/83 (99) 94 02/09/20 20:00 127 02/09/20 16:00 103 02/09/20 16:00 98.3 103 16 122/85 (97) 97 Intake and Output 02/09/20 02/10/20 19:00 07:00 Intake Total 930 ml 50 ml Output Total 5600 ml 200 ml Balance -4670 ml -150 ml Free Water 450 ml IV Total 50 ml Tube Feeding 480 ml Output Urine Total 5450 ml 200 ml Stool Total 150 ml # Bowel Movements 2 1 Laboratory Tests 02/10/20 05:30: White Blood Count 14.4H, Red Blood Count 3.38L, Hemoglobin 9.4L, Hematocrit 28.1L, Mean Corpuscular Volume 83, Mean Corpuscular Hemoglobin 27.9, Mean Corpuscular Hemoglobin Concent 33.5, Red Cell Distribution Width 13.8, Platelet Count 489H, Mean Platelet Volume 5.7L, Neutrophils (%) (Auto) 82.6H, Lymphocytes (%) (Auto) 9.8L, Monocytes (%) (Auto) 6.5, Eosinophils (%) (Auto) 0.6, Basophils (%) (Auto) 0.5, Sodium Level 143, Potassium Level 4.2, Chloride Level 108H, Carbon Dioxide Level 27, Anion Gap 8, Blood Urea Nitrogen 34H, Creatinine 1.0, Estimat Glomerular Filtration Rate > 60, Glucose Level 146H, Calcium Level 8.4L Height (Feet): 5 Height (Inches): 2.00 Weight (Pounds): 128 Objective Elderly AA woman NCAT supple CTA RR abd soft (+) rectal tube Radha Baker MD Feb 10, 2020 13:00
--- NOTE | 2020-02-10 14:47 | Cardiac Electrophysiology PN ---
Subjective Subjective EP consult dictated [id number] Objective Last 24 Hour Vital Signs Date Time Temp Pulse Resp B/P (MAP) Pulse Ox O2 Delivery O2 Flow Rate FiO2 02/10/20 12:00 122 02/10/20 12:00 97.9 126 20 138/83 (101) 99 02/10/20 09:28 112 130/73 02/10/20 09:00 Room Air 02/10/20 08:00 117 02/10/20 08:00 97.1 126 20 137/77 (97) 94 02/10/20 04:00 112 02/10/20 04:00 98.8 121 18 130/73 (92) 91 02/10/20 00:22 97.9 86 16 145/56 (85) 92 02/10/20 00:00 131 02/09/20 21:00 Room Air 02/09/20 20:00 98.3 129 18 131/83 (99) 94 02/09/20 20:00 127 02/09/20 16:00 103 02/09/20 16:00 98.3 103 16 122/85 (97) 97 Intake and Output 02/09/20 02/10/20 19:00 07:00 Intake Total 930 ml 50 ml Output Total 5600 ml 200 ml Balance -4670 ml -150 ml Free Water 450 ml IV Total 50 ml Tube Feeding 480 ml Output Urine Total 5450 ml 200 ml Stool Total 150 ml # Bowel Movements 2 1 Laboratory Tests Test 02/10/20 05:30 White Blood Count 14.4 K/UL (4.8-10.8) H Red Blood Count 3.38 M/UL (4.20-5.40) L Hemoglobin 9.4 G/DL (12.0-16.0) L Hematocrit 28.1 % (37.0-47.0) L Mean Corpuscular Volume 83 FL (80-99) Mean Corpuscular Hemoglobin 27.9 PG (27.0-31.0) Mean Corpuscular Hemoglobin Concent 33.5 G/DL (32.0-36.0) Red Cell Distribution Width 13.8 % (11.6-14.8) Platelet Count 489 K/UL (150-450) H Mean Platelet Volume 5.7 FL (6.5-10.1) L Neutrophils (%) (Auto) 82.6 % (45.0-75.0) H Lymphocytes (%) (Auto) 9.8 % (20.0-45.0) L Monocytes (%) (Auto) 6.5 % (1.0-10.0) Eosinophils (%) (Auto) 0.6 % (0.0-3.0) Basophils (%) (Auto) 0.5 % (0.0-2.0) Sodium Level 143 MMOL/L (136-145) Potassium Level 4.2 MMOL/L (3.5-5.1) Chloride Level 108 MMOL/L (98-107) H Carbon Dioxide Level 27 MMOL/L (21-32) Anion Gap 8 mmol/L (5-15) Blood Urea Nitrogen 34 mg/dL (7-18) H Creatinine 1.0 MG/DL (0.55-1.30) Estimat Glomerular Filtration Rate > 60 mL/min (>60) Glucose Level 146 MG/DL (74-106) H Calcium Level 8.4 MG/DL (8.5-10.1) Oscar Huertas MD Feb 10, 2020 14:47
--- NOTE | 2020-02-10 15:31 | Infectious Diseases Prog Note ---
Assessment/Plan Assessment/Plan A) 1) citrobacter bacteremia, likely source, CT noted, sepsis, leukocytosis 2) being ruled out for covid-19 - low clinical suspicion, results pending 3) dm, hyperlipidemia, ? htn, hypothyroidism, cva, anemia, hemiplegia, ckd, gerd , copd, chf, ppm 4) allergies - nkda, fh-nc, sh-negative, mar noted, notes and records noted 5) d/w RN P) 1) ceftriaxone and flagyl - day # 11 abx 2) covid-10 testing - negative 3) CT abdomen and pelvis - severe hydronephrosis and cystitis, no abscess 4) monitor labs, leukocytosis improved 5) c.diff. negative 6) urology f/u 7) will f/u Subjective Constitutional: Reports: fatigue; Denies: fever HEENT: Denies: congestion Respiratory: Denies: shortness of breath Cardiovascular: Denies: chest pain Gastrointestinal/Abdominal: Denies: nausea, vomiting, diarrhea Genitourinary: Reports: other - + john Neurologic: Denies: headache Psychiatric: Denies: depression Skin: Denies: rash Hematologic: Denies: bleeding Musculoskeletal: Denies: pain Allergies: Coded Allergies: No Known Allergies (Unverified , 01/30/20) Objective Vital Signs Last 24 Hour Vital Signs Date Time Temp Pulse Resp B/P (MAP) Pulse Ox O2 Delivery O2 Flow Rate FiO2 02/10/20 12:00 122 02/10/20 12:00 97.9 126 20 138/83 (101) 99 02/10/20 09:28 112 130/73 02/10/20 09:00 Room Air 02/10/20 08:00 117 02/10/20 08:00 97.1 126 20 137/77 (97) 94 02/10/20 04:00 112 02/10/20 04:00 98.8 121 18 130/73 (92) 91 02/10/20 00:22 97.9 86 16 145/56 (85) 92 02/10/20 00:00 131 02/09/20 21:00 Room Air 02/09/20 20:00 98.3 129 18 131/83 (99) 94 02/09/20 20:00 127 02/09/20 16:00 103 02/09/20 16:00 98.3 103 16 122/85 (97) 97 Height (Feet): 5 Height (Inches): 2.00 Weight (Pounds): 128 General Appearance: no acute distress HEENT: normocephalic, atraumatic, anicteric, mucous membranes moist Respiratory/Chest: lungs clear, normal breath sounds Cardiovascular: normal rate, regular rhythm, no gallop/murmur, no JVD Abdomen: normal bowel sounds, soft, non tender, no organomegaly, non distended Genitourinary: other - + john Extremities: no cyanosis Skin: no rash Neurologic/Psychiatric: 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 The heart size is normal. There is a right chest biventricular pacemaker Impression: No acute process CT abdomen and pelvis: IMPRESSION: 1. Examination is limited by motion artifact. 2. Trace left pleural effusion. 3. Severe left hydronephrosis versus parapelvic cysts. No definite obstructing stone. 4. Mild bladder wall thickening with small gas foci in the bladder, concerning for cystitis. Please correlate with urinalysis. Microbiology Date/Time Source Procedure Growth Status 02/03/20 04:15 Blood Blood Culture - Final NO GROWTH AFTER 5 DAYS Complete 01/30/20 15:45 Nasal Nares MRSA Culture - Final NO METHICILLIN RESISTANT STAPH AUREUS... Complete 02/04/20 19:00 Stool Clostridium difficile Toxin Assay - Final Complete 01/30/20 15:45 Rectum VRE Culture - Final NO VANCOMYCIN RESISTANT ENTEROCOCCUS ... Complete Laboratory Tests Test 02/10/20 05:30 White Blood Count 14.4 K/UL (4.8-10.8) H Red Blood Count 3.38 M/UL (4.20-5.40) L Hemoglobin 9.4 G/DL (12.0-16.0) L Hematocrit 28.1 % (37.0-47.0) L Mean Corpuscular Volume 83 FL (80-99) Mean Corpuscular Hemoglobin 27.9 PG (27.0-31.0) Mean Corpuscular Hemoglobin Concent 33.5 G/DL (32.0-36.0) Red Cell Distribution Width 13.8 % (11.6-14.8) Platelet Count 489 K/UL (150-450) H Mean Platelet Volume 5.7 FL (6.5-10.1) L Neutrophils (%) (Auto) 82.6 % (45.0-75.0) H Lymphocytes (%) (Auto) 9.8 % (20.0-45.0) L Monocytes (%) (Auto) 6.5 % (1.0-10.0) Eosinophils (%) (Auto) 0.6 % (0.0-3.0) Basophils (%) (Auto) 0.5 % (0.0-2.0) Sodium Level 143 MMOL/L (136-145) Potassium Level 4.2 MMOL/L (3.5-5.1) Chloride Level 108 MMOL/L (98-107) H Carbon Dioxide Level 27 MMOL/L (21-32) Anion Gap 8 mmol/L (5-15) Blood Urea Nitrogen 34 mg/dL (7-18) H Creatinine 1.0 MG/DL (0.55-1.30) Estimat Glomerular Filtration Rate > 60 mL/min (>60) Glucose Level 146 MG/DL (74-106) H Calcium Level 8.4 MG/DL (8.5-10.1) L Current Medications Medications (Trade) Dose Ordered Sig/Moreno Route PRN Reason Start Time Stop Time Status Last Admin Dose Admin Acetaminophen (Tylenol) 650 mg Q4H PRN GT Mild Pain/Temp > 100.5 02/09/20 14:30 03/08/20 10:29 Atorvastatin Calcium (Lipitor) 40 mg BEDTIME ORAL 02/09/20 21:00 04/29/20 20:59 02/09/20 21:00 Barium Sulfate (Readi-Cat 2) 450 ml NOW PRN ORAL Radiology Procedure 02/10/20 09:00 02/11/20 08:46 Ceftriaxone Sodium 1 gm/ Dextrose 50 ml @ 100 mls/hr Q24H IVPB 02/09/20 21:00 02/11/20 20:59 02/09/20 21:00 Dextrose (Dextrose 50%) 25 ml Q30M PRN IV Hypoglycemia 02/09/20 14:30 04/29/20 18:59 Dextrose (Dextrose 50%) 50 ml Q30M PRN IV Hypoglycemia 02/09/20 14:30 04/29/20 18:59 Diphenhydramine HCl (Benadryl) 25 mg Q6H PRN ORAL Itching/Pruritis 02/09/20 15:00 03/10/20 14:59 Diphenoxylate HCl/ Atropine (Lomotil) 2.5 mg Q4H PRN GT Diarrhea 02/09/20 15:00 03/08/20 14:59 Levothyroxine Sodium (Synthroid) 25 mcg DAILY@0630 ORAL 02/10/20 06:30 03/01/20 06:29 02/10/20 06:17 Loperamide HCl (Imodium) 2 mg Q3H PRN NG Diarrhea 02/10/20 12:45 03/11/20 12:44 Metoprolol Succinate (Toprol XL) 25 mg DAILY ORAL 02/10/20 09:00 05/09/20 08:59 02/10/20 09:28 Ondansetron HCl (Zofran) 4 mg Q6H PRN IVP Nausea & Vomiting 02/09/20 15:00 02/29/20 14:59 Pantoprazole (Protonix) 40 mg EVERY 12 HOURS IVP 02/09/20 21:00 03/08/20 20:59 02/10/20 09:29 Abiodun Jacobo MD Feb 10, 2020 15:31
--- NOTE | 2020-02-10 16:55 | Surgery Progress Note ---
Surgery Progress Note Subjective Additional Comments ill appearing non responsive CT noted leukocytosis IMPRESSION: 1. Examination is limited by motion artifact. 2. Trace left pleural effusion. 3. Severe left hydronephrosis versus parapelvic cysts. No definite obstructing stone. 4. Mild bladder wall thickening with small gas foci in the bladder, concerning for cystitis. Please correlate with urinalysis. Objective Last 24 Hour Vital Signs Date Time Temp Pulse Resp B/P (MAP) Pulse Ox O2 Delivery O2 Flow Rate FiO2 02/10/20 12:00 122 02/10/20 12:00 97.9 126 20 138/83 (101) 99 02/10/20 09:28 112 130/73 02/10/20 09:00 Room Air 02/10/20 08:00 117 02/10/20 08:00 97.1 126 20 137/77 (97) 94 02/10/20 04:00 112 02/10/20 04:00 98.8 121 18 130/73 (92) 91 02/10/20 00:22 97.9 86 16 145/56 (85) 92 02/10/20 00:00 131 02/09/20 21:00 Room Air 02/09/20 20:00 98.3 129 18 131/83 (99) 94 02/09/20 20:00 127 I&O Intake and Output 02/09/20 02/10/20 19:00 07:00 Intake Total 930 ml 50 ml Output Total 5600 ml 200 ml Balance -4670 ml -150 ml Free Water 450 ml IV Total 50 ml Tube Feeding 480 ml Output Urine Total 5450 ml 200 ml Stool Total 150 ml # Bowel Movements 2 1 Dressing: saturated Cardiovascular: RSR Respiratory: clear Abdomen: soft, non-tender, present bowel sounds Extremities: edema, no tenderness, no cyanosis Laboratory Tests Test 02/10/20 05:30 White Blood Count 14.4 K/UL (4.8-10.8) H Red Blood Count 3.38 M/UL (4.20-5.40) L Hemoglobin 9.4 G/DL (12.0-16.0) L Hematocrit 28.1 % (37.0-47.0) L Mean Corpuscular Volume 83 FL (80-99) Mean Corpuscular Hemoglobin 27.9 PG (27.0-31.0) Mean Corpuscular Hemoglobin Concent 33.5 G/DL (32.0-36.0) Red Cell Distribution Width 13.8 % (11.6-14.8) Platelet Count 489 K/UL (150-450) H Mean Platelet Volume 5.7 FL (6.5-10.1) L Neutrophils (%) (Auto) 82.6 % (45.0-75.0) H Lymphocytes (%) (Auto) 9.8 % (20.0-45.0) L Monocytes (%) (Auto) 6.5 % (1.0-10.0) Eosinophils (%) (Auto) 0.6 % (0.0-3.0) Basophils (%) (Auto) 0.5 % (0.0-2.0) Sodium Level 143 MMOL/L (136-145) Potassium Level 4.2 MMOL/L (3.5-5.1) Chloride Level 108 MMOL/L (98-107) H Carbon Dioxide Level 27 MMOL/L (21-32) Anion Gap 8 mmol/L (5-15) Blood Urea Nitrogen 34 mg/dL (7-18) H Creatinine 1.0 MG/DL (0.55-1.30) Estimat Glomerular Filtration Rate > 60 mL/min (>60) Glucose Level 146 MG/DL (74-106) H Calcium Level 8.4 MG/DL (8.5-10.1) L Plan Problems: (1) Septic shock Assessment & Plan: Patient presented to emergency department with sepsis hypotension tachycardia lactic acidosis leukocytosis. On IV antibiotics Labs improving IV hydration Continue tube feeds advance goal as tolerated Abdominal exam does elicit patient to retract a bit but she is not tender peritonitis or without rebound or significant guarding. exam improved Likely startle effect rather than intra-abdominal pathology will follow with serial exams continue with current care plan thank you for let me participate in patient's care leukocytosis. c diff negative. blood cultures noted abx as per ID Severe left hydronephrosis versus parapelvic cysts. No definite obstructing stone. Mild bladder wall thickening with small gas foci in the bladder, concerning for cystitis. Please correlate with urinalysis. (2) Decubitus skin ulcer Assessment & Plan: 84-year-old female presented on admission with multiple decubitus skin ulcers and skin concerns. Patient identified to have a unstageable sacral lower back decubitus ulcer, periwound maceration, area of necrotic eschar soft, no drainage, no abscess, no foul odor Pt presented on admission with contractures, Multiple Pressure injuries.open DTPI sacrum.Wound is open at sacrococcygeal area(40%), with soft necrotic base ( L)5.5cm x (W)4.5cm. Surrounding base of wound is maroon and indurated. Total area of sacral DTPI measures(L) 12.5cm x (W)15cm. Non-blanching erythema periwound.In addition several small partial thickness wounds noted along Perineum.` Areas of hyperpigmentation noted to L and R trochanteric. Full thickness wound R knee.(L)1.1cm x (W)1.5cm.1 Base of wound 90% pink granulation,10% slough noted in center of wound. Borders are macerated.small amt serous exudate. No odor noted. No erythema or fluctuance noted periwound. Non-blanching erythema with fluctuance R heel. Unstageable pressure injury R hallux. Base of wound is 100% soft necrosis. Edges adherent and dry.No odor or exudate noted.Surrounding darker skin tone without erythema or fluctuance(L)2.6cm x (W)3cm. DTPI R Ankle(L)0.9cm x (W)1.6cm. Base of wound is fluctuant, maroon with marginal erythema. Periwound without erythema or fluctuance. Unstageable pressure injury distal/lateral R foot. Base of wound 100% soft necrosis with surrounding non-blanching erythema with fluctuance.(L)2cm x (W) 0.9cm. Stable dry eschar medial/lateral R foot (L)0.4cm x (W)0.8cm. Stable dry eschar lateral L heel.(L)1.9cm x (W)2.2cm. No erythema or fluctuance periwound. Unstable pressure injury medial/lateral L foot. Base of wound is 100% necrotic but dry.(L)0.7cm x (W)0.8cm. Unstageable pressure injury distal/lateral L foot. Base of wound is 100% necrotic but dry. (L)1.2cm x (W)1.6cm.non-blanching erythema without fluctuance periwound. Non-blanching erythema without fluctuance lateral L 5th metatarsal.(L)1.5cm x (W )0.5cm. Open DTPI L Hallux.Base of wound has mixed necrosis and slough with surrounding base of wound maroon with fluctuance. Non-blanching erythema without elevation in skin temp,or fluctuance periwound. Tx.plan: Cleanse Sacral wound with Saline. Apply TheraHoney. Apply Moisture Barrier Paste Periwound. Cover with Optifoam drsg. Change Daily and prn. Swab R nee with Betadine. Cover with Optifoam drsg every 3 days and prn. Swab wounds R foot with Betadine. Cover each wound with Optifoam drsg. Change every 3 days and prn. Swab wounds L foot with Betadine. Cover each wound with Optifoam drsg. Change every 3 days and prn. Reposition at least every 2hours or as tolerated. Place pillow between knees. Off-load heels with Pillow. APM/ARIEL Mattress. DAILY ESTIMATED NEEDS: Needs based on Wounds, underweight 50kg 30-35 kcals/kg 9987-1887 total kcals 1.25-2 g protein/kg 63-100 g total protein 25-30 mL/kg 8659-6438 total fluid mLs NUTRITION DIAGNOSIS: Increased kcal and pro needs r/t underweight status and wound healing as evidenced by pt @85% [place] Body Weight w/ multiple wounds, eval pending, pt is PEG dep. CURRENT TF:Glucerna 1.5 @60ml x20 hrs ENTERAL NUTRITION RECOMMENDATIONS: Maintain current TF as tolerated: Glucerna 1.5 @60ml/hr x20 hrs to provide 1200ml, 1800 kcal, 99g pro, 911ml free H2o -> Monitor for hypoglycemia and need to change to non carb control formula -> Flush per MD. HOB over 30 degrees ADDITIONAL RECOMMENDATIONS: 1) On iso, per SNF pt is: 65 inches + 110#/50kg 2) Wound care: add MATT in 4oz H2O BID via GT F/up w/ WC eval 3) Maintain calibrated bed scale wts 4) Monitor for continued hypoglycemic events, need for D5 or TF change Luther Mercedes Feb 10, 2020 16:55
[2020-02-10] MEDS ORDERED: NS 275ml ONE ×2 (17:29→17:32)
[2020-02-10] MEDS ORDERED: Tubing IV Secondary IV ONE ×3 (17:29→17:43)
--- NOTE | 2020-02-10 18:30 | Consultation ---
DATE OF CONSULTATION: 02/10/2020 CARDIAC ELECTROPHYSIOLOGY CONSULTATION CONSULTING PHYSICIAN: Oscar Corley M.D. REFERRING PHYSICIAN: Isa Ponce M.D. REASON FOR CONSULTATION: Tachycardia and evaluation for pacemaker malfunction. The patient 130 beats per minute. HISTORY OF PRESENT ILLNESS: The patient is an 84-year-old lady with history of hypertension, diabetes, CVA, dysphagia status post G-tube placement, hyperlipidemia, COPD, dementia, history of [employer] pacemaker implantation who was admitted to the hospital for hypotension. The patient was noted to have sepsis, positive blood cultures. CT of abdomen and pelvis showed left-sided hydronephrosis and evaluated by Dr. Leos. The patient was started on broad-spectrum antibiotics. The patient was evaluated by Cardiology by Dr. Crain as well. The patient noted that she has been persistently tachycardic with heart rate in the 130s and cardiac electrophysiology consultation was requested today for further evaluation and management. REVIEW OF SYSTEMS: Cannot be obtained. PAST MEDICAL HISTORY: As mentioned above. FAMILY HISTORY: Noncontributory. SOCIAL HISTORY: assisted resident. Does not smoke or drink alcohol. MEDICATIONS: Include Toprol-XL 25 mg daily, Synthroid, Lipitor, Zofran, Imodium, and ceftriaxone. PHYSICAL EXAMINATION: VITAL SIGNS: Show blood pressure 138/83, pulse is 130, respirations 18, temperature 98. HEAD AND NECK: Shows no JVD. LUNGS: Coarse rhonchi. CARDIOVASCULAR: Regular S1 and S2. Tachycardic. Pacemaker is in the right subclavian. ABDOMEN: Soft. EXTREMITIES: Contracted. LABORATORY AND DIAGNOSTIC DATA: Labs show white count of 14.4, hemoglobin of 9.4, hematocrit of 28, and platelet count is 489. Sodium 142, potassium 4.2, BUN of 34, creatinine 1.0, and glucose of 146. INR is 1. Chest x-ray on 02/01/2020 showed right-sided dual-chamber pacemaker. Telemetry and a 12-lead EKG showed atrially sensed ventricular paced rhythm, rate of 130. ASSESSMENT AND PLAN: 1. Status post right-sided dual-chamber pacemaker implantation. This is a [employer] pacemaker. This is likely due to sinus tachycardia or it is being tracked by the pacemaker or it could be pacemaker-mediated tachycardia. We will interrogate the pacemaker for further evaluation. the patient on metoprolol. 2. Normal left ventricular systolic function. EF of 55% by echocardiogram. 3. Hypertension, on Toprol. 4. Dysphagia, status post PEG placement. 5. Status post septic shock that was resolved after IV antibiotics. 6. Severe anemia. Hemoglobin improved from 7.5 to 9.4. 7. Dementia. 8. CVA. 9. Diabetes. 10. COPD. 11. Chronic kidney disease. Thank you very much for allowing me to participate in the care of this patient. Please do not hesitate to contact me for any questions regarding my evaluation. Oscar Corley M.D. DR: ROMAINE JOB#: [id number] CC:
--- NOTE | 2020-02-10 19:25 | Neurology Progress Note ---
Interim History Interim History ROS Limited/Unobtainable: Yes Interim History no fevers, remains somnolent Objective Physical Exam Last Vital Signs Date Time Temp Pulse Resp B/P (MAP) Pulse Ox O2 Delivery O2 Flow Rate FiO2 02/10/20 16:00 118 02/10/20 16:00 97.6 18 129/85 (100) 96 02/10/20 09:00 Room Air 02/09/20 04:00 2.0 02/07/20 19:19 28 Laboratory Tests Test 02/10/20 05:30 02/10/20 18:50 White Blood Count 14.4 K/UL (4.8-10.8) H Red Blood Count 3.38 M/UL (4.20-5.40) L Hemoglobin 9.4 G/DL (12.0-16.0) L Hematocrit 28.1 % (37.0-47.0) L Mean Corpuscular Volume 83 FL (80-99) Mean Corpuscular Hemoglobin 27.9 PG (27.0-31.0) Mean Corpuscular Hemoglobin Concent 33.5 G/DL (32.0-36.0) Red Cell Distribution Width 13.8 % (11.6-14.8) Platelet Count 489 K/UL (150-450) H Mean Platelet Volume 5.7 FL (6.5-10.1) L Neutrophils (%) (Auto) 82.6 % (45.0-75.0) H Lymphocytes (%) (Auto) 9.8 % (20.0-45.0) L Monocytes (%) (Auto) 6.5 % (1.0-10.0) Eosinophils (%) (Auto) 0.6 % (0.0-3.0) Basophils (%) (Auto) 0.5 % (0.0-2.0) Sodium Level 143 MMOL/L (136-145) Potassium Level 4.2 MMOL/L (3.5-5.1) Chloride Level 108 MMOL/L (98-107) H Carbon Dioxide Level 27 MMOL/L (21-32) Anion Gap 8 mmol/L (5-15) Blood Urea Nitrogen 34 mg/dL (7-18) H Creatinine 1.0 MG/DL (0.55-1.30) Estimat Glomerular Filtration Rate > 60 mL/min (>60) Glucose Level 146 MG/DL (74-106) H Calcium Level 8.4 MG/DL (8.5-10.1) L Troponin I Pending Head: normocophalic, atraumatic Neck: no rigidity EENT: benign Neurologic Exam Sensory: other - cc 35 min Objective lethargic, minimal withdraw in all 4 cc 35 min Impression/Recommendations Problems: (1) Septic shock (2) Anemia (3) Elevated troponin (4) Sepsis (5) Decubitus skin ulcer Status: stable Diagnostic Impression Acute encephalopathy in the context of sepsis Dementia, likely vascular Hx of strokes Monitor neuro exam Delirium precautions atb broad spectrum asa daily Luis Nash MD Feb 10, 2020 19:25
[2020-02-10] MEDS: cefTRIAXone 1 GM in D5W 50 ML IVPB SCH (22:06)
[2020-02-10] MEDS: Atorvastatin 20mg tab ORAL SCH (22:07)
[2020-02-10] MEDS ORDERED: Heparin 25,000u/D5W 500ml 500 ML IV SCH ×2 (23:00→23:30)
[2020-02-11 00:23] LABS: BASOPHILS % (AUTO) 0.9 % (0.0-2.0); EOSINOPHILS % (AUTO) 0.3 % (0.0-3.0); HEMATOCRIT 28.8 % (37.0-47.0); HEMOGLOBIN 9.6 G/DL (12.0-16.0); LYMPHOCYTES % (AUTO) 7.7 % (20.0-45.0); MEAN CORPUSCULAR VOLUME 83 FL (80-99); MONOCYTES % (AUTO) 7.3 % (1.0-10.0); NEUTROPHILS % (AUTO) 83.9 % (45.0-75.0); PLATELET COUNT 520 K/UL (150-450); RED BLOOD COUNT 3.48 M/UL (4.20-5.40); RED CELL DISTRIBUTION WIDTH 13.9 % (11.6-14.8)
[2020-02-11 03:16] LABS: BASOPHILS % (AUTO) 0.6 % (0.0-2.0); EOSINOPHILS % (AUTO) 0.3 % (0.0-3.0); HEMATOCRIT 28.5 % (37.0-47.0); HEMOGLOBIN 9.5 G/DL (12.0-16.0); LYMPHOCYTES % (AUTO) 7.5 % (20.0-45.0); MEAN CORPUSCULAR VOLUME 82 FL (80-99); MONOCYTES % (AUTO) 7.1 % (1.0-10.0); NEUTROPHILS % (AUTO) 84.5 % (45.0-75.0); PLATELET COUNT 530 K/UL (150-450); RED BLOOD COUNT 3.46 M/UL (4.20-5.40); RED CELL DISTRIBUTION WIDTH 14.3 % (11.6-14.8); WHITE BLOOD COUNT 17.5 K/UL (4.8-10.8)
[2020-02-11 03:20] LABS: ANION GAP 8 mmol/L (5-15); BLOOD UREA NITROGEN 33 mg/dL (7-18); CALCIUM 8.2 MG/DL (8.5-10.1); CARBON DIOXIDE 26 MMOL/L (21-32); CHLORIDE 112 MMOL/L (98-107); CREATININE 1.1 MG/DL (0.55-1.30); POTASSIUM 4.4 MMOL/L (3.5-5.1); SODIUM 146 MMOL/L (136-145)
[2020-02-11 04:00] VITALS: BP 139/72
[2020-02-11] MEDS: Levothyroxine 25mcg tab ORAL SCH (06:14)
[2020-02-11] MEDS ORDERED: Heparin 25,000u/D5W 500ml 500 ML IV SCH (07:00)
[2020-02-11] MEDS ORDERED: Heparin 5000 units/ml inj IV SCH ×2 (07:00)
[2020-02-11 08:00] VITALS: BP 128/61
--- NOTE | 2020-02-11 08:26 | Urology Progress Note ---
Assessment/Plan Status: stable Assessment/Plan: 1. Possible left-sided hydronephrosis versus parapelvic cyst. 2. Urinary retention. 3. Neurogenic bladder. 4. Proteinuria. 5. Hematuria. 6. Pyuria. 7. Sepsis history. 8. Cystitis. monitor clinically john indwelling hand irrigated and do PRN monitor renal fxn and WBC consider CT A/P with IV contrast cysto at some point on abx voiding trial later Subjective Allergies: Coded Allergies: No Known Allergies (Unverified , 01/30/20) Subjective all noted Objective Last 24 Hour Vital Signs Date Time Temp Pulse Resp B/P (MAP) Pulse Ox O2 Delivery O2 Flow Rate FiO2 02/11/20 08:00 100.3 90 16 128/61 (83) 96 02/11/20 04:00 99.1 94 17 139/72 (94) 95 02/11/20 04:00 88 02/11/20 00:00 91 02/10/20 23:27 100.0 91 16 158/50 (86) 95 02/10/20 22:40 99.5 02/10/20 22:37 99.5 02/10/20 21:00 Room Air 02/10/20 20:00 101.0 91 16 117/71 (86) 96 02/10/20 20:00 120 02/10/20 16:00 118 02/10/20 16:00 97.6 119 18 129/85 (100) 96 02/10/20 12:00 122 02/10/20 12:00 97.9 126 20 138/83 (101) 99 02/10/20 09:28 112 130/73 02/10/20 09:00 Room Air Intake and Output 02/10/20 02/11/20 19:00 07:00 Intake Total 860 ml 133.934 ml Output Total 8800 ml 1200 ml Balance -7940 ml -1066.066 ml Free Water 200 ml IV Total 133.934 ml Tube Feeding 660 ml Output Urine Total 8800 ml 1200 ml # Voids 1 # Bowel Movements 1 1 Microbiology Date/Time Source Procedure Growth Status 02/03/20 04:15 Blood Blood Culture - Final NO GROWTH AFTER 5 DAYS Complete 01/30/20 15:45 Nasal Nares MRSA Culture - Final NO METHICILLIN RESISTANT STAPH AUREUS... Complete 02/04/20 19:00 Stool Clostridium difficile Toxin Assay - Final Complete 01/30/20 15:45 Rectum VRE Culture - Final NO VANCOMYCIN RESISTANT ENTEROCOCCUS ... Complete Current Medications Medications (Trade) Dose Ordered Sig/Moreno Route PRN Reason Start Time Stop Time Status Last Admin Dose Admin Acetaminophen (Tylenol) 650 mg Q4H PRN GT Mild Pain/Temp > 100.5 02/09/20 14:30 03/08/20 10:29 02/10/20 22:07 Aspirin (ASA) 81 mg DAILY GT 02/11/20 09:00 03/27/20 08:59 Atorvastatin Calcium (Lipitor) 40 mg BEDTIME ORAL 02/09/20 21:00 04/29/20 20:59 02/10/20 22:07 Barium Sulfate (Readi-Cat 2) 450 ml NOW PRN ORAL Radiology Procedure 02/10/20 09:00 02/11/20 08:46 Ceftriaxone Sodium 1 gm/ Dextrose 50 ml @ 100 mls/hr Q24H IVPB 02/10/20 21:00 02/12/20 20:59 02/10/20 22:06 Dextrose (Dextrose 50%) 25 ml Q30M PRN IV Hypoglycemia 02/09/20 14:30 04/29/20 18:59 Dextrose (Dextrose 50%) 50 ml Q30M PRN IV Hypoglycemia 02/09/20 14:30 04/29/20 18:59 Diphenhydramine HCl (Benadryl) 25 mg Q6H PRN ORAL Itching/Pruritis 02/09/20 15:00 03/10/20 14:59 Diphenoxylate HCl/ Atropine (Lomotil) 2.5 mg Q4H PRN GT Diarrhea 02/09/20 15:00 03/08/20 14:59 Heparin Sodium/ Dextrose 500 ml @ 18.652 mls/ hr ADJUST PER PROTOCOL IV 02/11/20 07:00 03/12/20 06:59 Levothyroxine Sodium (Synthroid) 25 mcg DAILY@0630 ORAL 02/10/20 06:30 03/01/20 06:29 02/11/20 06:14 Loperamide HCl (Imodium) 2 mg Q3H PRN NG Diarrhea 02/10/20 12:45 03/11/20 12:44 Metoprolol Succinate (Toprol XL) 25 mg DAILY ORAL 02/10/20 09:00 05/09/20 08:59 02/10/20 09:28 Ondansetron HCl (Zofran) 4 mg Q6H PRN IVP Nausea & Vomiting 02/09/20 15:00 02/29/20 14:59 Pantoprazole (Protonix) 40 mg EVERY 12 HOURS IVP 02/09/20 21:00 03/08/20 20:59 02/10/20 22:05 Laboratory Tests 02/10/20 20:05: Troponin I 31.161H 02/11/20 00:00: White Blood Count 17.0H, Red Blood Count 3.48L, Hemoglobin 9.6L, Hematocrit 28.8L, Mean Corpuscular Volume 83, Mean Corpuscular Hemoglobin 27.6, Mean Corpuscular Hemoglobin Concent 33.4, Red Cell Distribution Width 13.9, Platelet Count 520H, Mean Platelet Volume 5.3L, Neutrophils (%) (Auto) 83.9H, Lymphocytes (%) (Auto) 7.7L, Monocytes (%) (Auto) 7.3, Eosinophils (%) (Auto) 0.3, Basophils (%) (Auto) 0.9, Activated Partial Thromboplast Time 30 02/11/20 02:50: Troponin I 26.877H, White Blood Count 17.5H, Red Blood Count 3.46L, Hemoglobin 9.5L, Hematocrit 28.5L, Mean Corpuscular Volume 82, Mean Corpuscular Hemoglobin 27.6, Mean Corpuscular Hemoglobin Concent 33.5, Red Cell Distribution Width 14.3 , Platelet Count 530H, Mean Platelet Volume 5.6L, Neutrophils (%) (Auto) 84.5H, Lymphocytes (%) (Auto) 7.5L, Monocytes (%) (Auto) 7.1, Eosinophils (%) (Auto) 0.3, Basophils (%) (Auto) 0.6, Sodium Level 146H, Potassium Level 4.4, Chloride Level 112H, Carbon Dioxide Level 26, Anion Gap 8, Blood Urea Nitrogen 33H, Creatinine 1.1, Estimat Glomerular Filtration Rate 57.7, Glucose Level 178H, Calcium Level 8.2L 02/11/20 06:10: Activated Partial Thromboplast Time 42H Height (Feet): 5 Height (Inches): 2.00 Weight (Pounds): 123 Objective exam stable Timothy Leos MD Feb 11, 2020 08:26
[2020-02-11] MEDS: Metoprolol Succinate XL 25mg tab ORAL SCH (09:00)
[2020-02-11] MEDS: Pantoprazole Inj IVP SCH ×2 (09:00→22:18)
[2020-02-11] MEDS: Aspirin Baby 81mg GT SCH (09:00)
--- NOTE | 2020-02-11 10:00 | General Progress Note ---
Assessment/Plan Status: stable Assessment/Plan: 84 year old woman with history of CVA, hemiplegia, DM, COPD, CKD, hyperlipidemia , hypothyroidism, GERD, unspecified CHF, S/p PPM brought in from SNF with hypotension, found to be septic with leukocytosis and minimal pyuria #Sepsis #Citrobacter bacteremia #Hypotension #Elevated lactate, improved #Leukocytosis - remains elevated #diarrhea #Fever -continue inpatient level of care -cardiac monitoring -suspect intraabdominal source -BCx 01/29 +citrobacter -repeat BC 02/02 negative -c diff negative -Cont.imodium PRN -cont to hold anti-hypertensives -COVID 19 negative -CT abd/pel reviewed -pt w/fever this AM, repeat BCx, UA, UCx, CXR -ID following: CTX, flagyl #Left Hydronephrosis #Cystitis -CT A/p showing possible hydro and cystitis -UA and UCx ordered -Urology Consulted, Dr. Leos, reccs appreciated #elevated troponins #NSTEMI, likely type II VA #HTN #HLD #Elevated BNP #S/p PPM #Sinus tachycardia -cont Toprol -monitor closely for evidence of fluid overload -Echo w/normal EF -heparin ggt initiated -transfer to SDU -PPM interrogation ordered -EP consulted #Hypernatremia - resolved #Unspecified CKD -FWF at 200 cc q6 hr -monitor renal function -Nephro following, appreciate recs #Hypothyroidism -cont levothyroxine #Decubitus Ulcer -Wound care follwing, appreciate recs #Dementia #h/o CVA -AOx1 at b/l -supportive care, monitor mentation -fall precautions, aspiration precautions -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 Additional 30 mins was spent on chart review. Subjective ROS Limited/Unobtainable: Yes - pt is aphasic Allergies: Coded Allergies: No Known Allergies (Unverified , 01/30/20) Subjective Follow up for sepsis, gram negative bacteremia, leukocytosis. COVID 19 Negative. Pt w/elevated troponins overnight, started on heparin ggt and Cardiology notified. No signs of bleeding. W/Fever this AM. Patient aphasic/non-verbal at b/l. Objective Last 24 Hour Vital Signs Date Time Temp Pulse Resp B/P (MAP) Pulse Ox O2 Delivery O2 Flow Rate FiO2 02/11/20 08:00 100.3 90 16 128/61 (83) 96 02/11/20 04:00 99.1 94 17 139/72 (94) 95 02/11/20 04:00 88 02/11/20 00:00 91 02/10/20 23:27 100.0 91 16 158/50 (86) 95 02/10/20 22:40 99.5 02/10/20 22:37 99.5 02/10/20 21:00 Room Air 02/10/20 20:00 101.0 91 16 117/71 (86) 96 02/10/20 20:00 120 02/10/20 16:00 118 02/10/20 16:00 97.6 119 18 129/85 (100) 96 02/10/20 12:00 122 02/10/20 12:00 97.9 126 20 138/83 (101) 99 Intake and Output 02/10/20 02/11/20 19:00 07:00 Intake Total 860 ml 133.934 ml Output Total 8800 ml 1200 ml Balance -7940 ml -1066.066 ml Free Water 200 ml IV Total 133.934 ml Tube Feeding 660 ml Output Urine Total 8800 ml 1200 ml # Voids 1 # Bowel Movements 1 1 Laboratory Tests 02/10/20 20:05: Troponin I 31.161H 02/11/20 00:00: White Blood Count 17.0H, Red Blood Count 3.48L, Hemoglobin 9.6L, Hematocrit 28.8L, Mean Corpuscular Volume 83, Mean Corpuscular Hemoglobin 27.6, Mean Corpuscular Hemoglobin Concent 33.4, Red Cell Distribution Width 13.9, Platelet Count 520H, Mean Platelet Volume 5.3L, Neutrophils (%) (Auto) 83.9H, Lymphocytes (%) (Auto) 7.7L, Monocytes (%) (Auto) 7.3, Eosinophils (%) (Auto) 0.3, Basophils (%) (Auto) 0.9, Activated Partial Thromboplast Time 30 02/11/20 02:50: Troponin I 26.877H, White Blood Count 17.5H, Red Blood Count 3.46L, Hemoglobin 9.5L, Hematocrit 28.5L, Mean Corpuscular Volume 82, Mean Corpuscular Hemoglobin 27.6, Mean Corpuscular Hemoglobin Concent 33.5, Red Cell Distribution Width 14.3 , Platelet Count 530H, Mean Platelet Volume 5.6L, Neutrophils (%) (Auto) 84.5H, Lymphocytes (%) (Auto) 7.5L, Monocytes (%) (Auto) 7.1, Eosinophils (%) (Auto) 0.3, Basophils (%) (Auto) 0.6, Sodium Level 146H, Potassium Level 4.4, Chloride Level 112H, Carbon Dioxide Level 26, Anion Gap 8, Blood Urea Nitrogen 33H, Creatinine 1.1, Estimat Glomerular Filtration Rate 57.7, Glucose Level 178H, Calcium Level 8.2L 02/11/20 06:10: Activated Partial Thromboplast Time 42H 02/11/20 09:10: Troponin I [Pending] Height (Feet): 5 Height (Inches): 2.00 Weight (Pounds): 123 Objective General Appearance: NAD, non-verbal, awake, alert, cachetic HEENT: NCAT, dry MM CV: RRR Respiratory: lungs clear, normal breath sounds, no respiratory distress Abdomen: non tender, soft, +PEG tube, c/d/i Ext: Contracted bilaterally, multiple abrasions wrapped in bandages C/D/I Lorna Uribe M.D. Feb 11, 2020 10:00
--- NOTE | 2020-02-11 10:45 | Nephrology Progress Note ---
Assessment/Plan Plan #hypernatremia due to free water deficit of close to 3L-improved #sepsis due to Citrobacter bacteremia #h/o CVA with hemiplegia #DM #COPD # hyperlipidemia #hypothyroidism # GERD # unspecified CHF, S/p PPM # possible hydronephrosis on CT - continue free water flushes to [id number] - monitor bmp daily - continue abx - avoid nephrotoxins - strict I&Os - daily weights - monitor lytes - urology eval - consider CT with IV contrast - monitor Cr closely Subjective Subjective Continues to have low grade temps labs reviewed-> WBC 17.5 sodium 146 C diff neg Seen by Urology regarding possible hydronephrosis on CT Objective Objective Last 24 Hour Vital Signs Date Time Temp Pulse Resp B/P (MAP) Pulse Ox O2 Delivery O2 Flow Rate FiO2 02/11/20 09:00 Room Air 02/11/20 08:00 100.3 90 16 128/61 (83) 96 02/11/20 04:00 99.1 94 17 139/72 (94) 95 02/11/20 04:00 88 02/11/20 00:00 91 02/10/20 23:27 100.0 91 16 158/50 (86) 95 02/10/20 22:40 99.5 02/10/20 22:37 99.5 02/10/20 21:00 Room Air 02/10/20 20:00 101.0 91 16 117/71 (86) 96 02/10/20 20:00 120 02/10/20 16:00 118 02/10/20 16:00 97.6 119 18 129/85 (100) 96 02/10/20 12:00 122 02/10/20 12:00 97.9 126 20 138/83 (101) 99 Intake and Output 02/10/20 02/11/20 19:00 07:00 Intake Total 860 ml 133.934 ml Output Total 8800 ml 1200 ml Balance -7940 ml -1066.066 ml Free Water 200 ml IV Total 133.934 ml Tube Feeding 660 ml Output Urine Total 8800 ml 1200 ml # Voids 1 # Bowel Movements 1 1 Laboratory Tests 02/10/20 20:05: Troponin I 31.161H 02/11/20 00:00: White Blood Count 17.0H, Red Blood Count 3.48L, Hemoglobin 9.6L, Hematocrit 28.8L, Mean Corpuscular Volume 83, Mean Corpuscular Hemoglobin 27.6, Mean Corpuscular Hemoglobin Concent 33.4, Red Cell Distribution Width 13.9, Platelet Count 520H, Mean Platelet Volume 5.3L, Neutrophils (%) (Auto) 83.9H, Lymphocytes (%) (Auto) 7.7L, Monocytes (%) (Auto) 7.3, Eosinophils (%) (Auto) 0.3, Basophils (%) (Auto) 0.9, Activated Partial Thromboplast Time 30 02/11/20 02:50: Troponin I 26.877H, White Blood Count 17.5H, Red Blood Count 3.46L, Hemoglobin 9.5L, Hematocrit 28.5L, Mean Corpuscular Volume 82, Mean Corpuscular Hemoglobin 27.6, Mean Corpuscular Hemoglobin Concent 33.5, Red Cell Distribution Width 14.3 , Platelet Count 530H, Mean Platelet Volume 5.6L, Neutrophils (%) (Auto) 84.5H, Lymphocytes (%) (Auto) 7.5L, Monocytes (%) (Auto) 7.1, Eosinophils (%) (Auto) 0.3, Basophils (%) (Auto) 0.6, Sodium Level 146H, Potassium Level 4.4, Chloride Level 112H, Carbon Dioxide Level 26, Anion Gap 8, Blood Urea Nitrogen 33H, Creatinine 1.1, Estimat Glomerular Filtration Rate 57.7, Glucose Level 178H, Calcium Level 8.2L 02/11/20 06:10: Activated Partial Thromboplast Time 42H 02/11/20 09:10: Troponin I 23.539H Height (Feet): 5 Height (Inches): 2.00 Weight (Pounds): 123 Objective General Appearance: NAD, otherwise awake, alert, confused Neck: normal alignment, supple CV: RRR Respiratory: lungs clear, normal breath sounds, no respiratory distress Abdomen: non tender, soft, +PEG tube, c/d/i Ext: Contracted bilaterally, multiple abrasions wrapped in bandages C/D/I Cathy Fuller M.D. Feb 11, 2020 10:45
--- NOTE | 2020-02-11 10:53 | General Progress Note ---
Assessment/Plan Problem List: (1) Diarrhea ICD Codes: R19.7 - Diarrhea, unspecified SNOMED: 13559945 (2) GI (gastrointestinal bleed) ICD Codes: K92.2 - Gastrointestinal hemorrhage, unspecified SNOMED: 58728646 (3) Elevated troponin ICD Codes: R79.89 - Other specified abnormal findings of blood chemistry; R65.21 - Severe sepsis with septic shock SNOMED: 112990144, 586830208, 454588391 (4) Anemia ICD Codes: D64.9 - Anemia, unspecified SNOMED: 120716179 (5) Septic shock ICD Codes: A41.9 - Sepsis, unspecified organism; R65.21 - Severe sepsis with septic shock SNOMED: 69421862 Status: stable Assessment/Plan: diarrhea is better with Lomotil and Imodium neg stool C.diff ppi TF to Glucerna 1.2 s/p blood transfusion last week COVID >>> neg given active FL and stable H&H will hold GI procedures for now repeat stool ob repeat CBC fu ID regarding ABX treatment of Pylo CT reviewed Subjective Allergies: Coded Allergies: No Known Allergies (Unverified , 01/30/20) Objective Last 24 Hour Vital Signs Date Time Temp Pulse Resp B/P (MAP) Pulse Ox O2 Delivery O2 Flow Rate FiO2 02/11/20 09:00 Room Air 02/11/20 08:00 100.3 90 16 128/61 (83) 96 02/11/20 04:00 99.1 94 17 139/72 (94) 95 02/11/20 04:00 88 02/11/20 00:00 91 02/10/20 23:27 100.0 91 16 158/50 (86) 95 02/10/20 22:40 99.5 02/10/20 22:37 99.5 02/10/20 21:00 Room Air 02/10/20 20:00 101.0 91 16 117/71 (86) 96 02/10/20 20:00 120 02/10/20 16:00 118 02/10/20 16:00 97.6 119 18 129/85 (100) 96 02/10/20 12:00 122 02/10/20 12:00 97.9 126 20 138/83 (101) 99 Intake and Output 02/10/20 02/11/20 19:00 07:00 Intake Total 860 ml 133.934 ml Output Total 8800 ml 1200 ml Balance -7940 ml -1066.066 ml Free Water 200 ml IV Total 133.934 ml Tube Feeding 660 ml Output Urine Total 8800 ml 1200 ml # Voids 1 # Bowel Movements 1 1 Laboratory Tests 02/10/20 20:05: Troponin I 31.161H 02/11/20 00:00: White Blood Count 17.0H, Red Blood Count 3.48L, Hemoglobin 9.6L, Hematocrit 28.8L, Mean Corpuscular Volume 83, Mean Corpuscular Hemoglobin 27.6, Mean Corpuscular Hemoglobin Concent 33.4, Red Cell Distribution Width 13.9, Platelet Count 520H, Mean Platelet Volume 5.3L, Neutrophils (%) (Auto) 83.9H, Lymphocytes (%) (Auto) 7.7L, Monocytes (%) (Auto) 7.3, Eosinophils (%) (Auto) 0.3, Basophils (%) (Auto) 0.9, Activated Partial Thromboplast Time 30 02/11/20 02:50: Troponin I 26.877H, White Blood Count 17.5H, Red Blood Count 3.46L, Hemoglobin 9.5L, Hematocrit 28.5L, Mean Corpuscular Volume 82, Mean Corpuscular Hemoglobin 27.6, Mean Corpuscular Hemoglobin Concent 33.5, Red Cell Distribution Width 14.3 , Platelet Count 530H, Mean Platelet Volume 5.6L, Neutrophils (%) (Auto) 84.5H, Lymphocytes (%) (Auto) 7.5L, Monocytes (%) (Auto) 7.1, Eosinophils (%) (Auto) 0.3, Basophils (%) (Auto) 0.6, Sodium Level 146H, Potassium Level 4.4, Chloride Level 112H, Carbon Dioxide Level 26, Anion Gap 8, Blood Urea Nitrogen 33H, Creatinine 1.1, Estimat Glomerular Filtration Rate 57.7, Glucose Level 178H, Calcium Level 8.2L 02/11/20 06:10: Activated Partial Thromboplast Time 42H 02/11/20 09:10: Troponin I 23.539H Height (Feet): 5 Height (Inches): 2.00 Weight (Pounds): 123 General Appearance: no apparent distress EENT: normal ENT inspection Neck: supple Cardiovascular: normal rate Respiratory/Chest: decreased breath sounds Abdomen: normal bowel sounds, non tender, soft Extremities: non-tender Herminio Rodriguez MD Feb 11, 2020 10:53
[2020-02-11 12:00] VITALS: BP 161/69
--- NOTE | 2020-02-11 12:51 | Cardiac Electrophysiology PN ---
Assessment/Plan Assessment/Plan 1. Status post right-sided [employer] dual-chamber pacemaker implantation. Interrogated the pacemaker and showed No Pacer Mediated tachycardia Just sinus tach likely due to acute PR with troponin 31. 2. Acute NSTEMI with peak troponin 31. Down to 23. Non verbal. Treat medically with aspirin, Lopressor and Lipitor DC heparin drip. 3. Normal left ventricular systolic function. EF of 55%. repeat echo 4. Hypertension, on Toprol. 5. Status post septic shock that was resolved after IV antibiotics. 6. Severe anemia. Hemoglobin improved from 7.5 to 9.4. 7. Dementia. 8. CVA. 9. Diabetes. 10. COPD. 11. Chronic kidney disease. 12. Dysphagia, status post PEG placement. LAKIA RN Subjective Subjective Nonverbal. HR now in 80s after pacer reprogramming.Comfortable in NAD. Objective Last 24 Hour Vital Signs Date Time Temp Pulse Resp B/P (MAP) Pulse Ox O2 Delivery O2 Flow Rate FiO2 02/11/20 09:00 90 128/61 02/11/20 09:00 Room Air 02/11/20 08:00 100.3 90 16 128/61 (83) 96 02/11/20 04:00 99.1 94 17 139/72 (94) 95 02/11/20 04:00 88 02/11/20 00:00 91 02/10/20 23:27 100.0 91 16 158/50 (86) 95 02/10/20 22:40 99.5 02/10/20 22:37 99.5 02/10/20 21:00 Room Air 02/10/20 20:00 101.0 91 16 117/71 (86) 96 02/10/20 20:00 120 02/10/20 16:00 118 02/10/20 16:00 97.6 119 18 129/85 (100) 96 Intake and Output 02/10/20 02/11/20 19:00 07:00 Intake Total 860 ml 133.934 ml Output Total 8800 ml 1200 ml Balance -7940 ml -1066.066 ml Free Water 200 ml IV Total 133.934 ml Tube Feeding 660 ml Output Urine Total 8800 ml 1200 ml # Voids 1 # Bowel Movements 1 1 Laboratory Tests Test 02/10/20 20:05 02/11/20 00:00 02/11/20 02:50 02/11/20 06:10 Troponin I 31.161 ng/mL (0.000-0.056) 26.877 ng/mL (0.000-0.056) White Blood Count 17.0 K/UL (4.8-10.8) H 17.5 K/UL (4.8-10.8) H Red Blood Count 3.48 M/UL (4.20-5.40) L 3.46 M/UL (4.20-5.40) L Hemoglobin 9.6 G/DL (12.0-16.0) L 9.5 G/DL (12.0-16.0) L Hematocrit 28.8 % (37.0-47.0) L 28.5 % (37.0-47.0) L Mean Corpuscular Volume 83 FL (80-99) 82 FL (80-99) Mean Corpuscular Hemoglobin 27.6 PG (27.0-31.0) 27.6 PG (27.0-31.0) Mean Corpuscular Hemoglobin Concent 33.4 G/DL (32.0-36.0) 33.5 G/DL (32.0-36.0) Red Cell Distribution Width 13.9 % (11.6-14.8) 14.3 % (11.6-14.8) Platelet Count 520 K/UL (150-450) H 530 K/UL (150-450) H Mean Platelet Volume 5.3 FL (6.5-10.1) L 5.6 FL (6.5-10.1) L Neutrophils (%) (Auto) 83.9 % (45.0-75.0) H 84.5 % (45.0-75.0) H Lymphocytes (%) (Auto) 7.7 % (20.0-45.0) L 7.5 % (20.0-45.0) L Monocytes (%) (Auto) 7.3 % (1.0-10.0) 7.1 % (1.0-10.0) Eosinophils (%) (Auto) 0.3 % (0.0-3.0) 0.3 % (0.0-3.0) Basophils (%) (Auto) 0.9 % (0.0-2.0) 0.6 % (0.0-2.0) Activated Partial Thromboplast Time 30 SEC (23-33) 42 SEC (23-33) H Sodium Level 146 MMOL/L (136-145) H Potassium Level 4.4 MMOL/L (3.5-5.1) Chloride Level 112 MMOL/L (98-107) H Carbon Dioxide Level 26 MMOL/L (21-32) Anion Gap 8 mmol/L (5-15) Blood Urea Nitrogen 33 mg/dL (7-18) H Creatinine 1.1 MG/DL (0.55-1.30) Estimat Glomerular Filtration Rate 57.7 mL/min (>60) Glucose Level 178 MG/DL (74-106) H Calcium Level 8.2 MG/DL (8.5-10.1) L Test 02/11/20 09:10 Troponin I 23.539 ng/mL (0.000-0.056) Objective HEAD AND NECK: Shows no JVD. LUNGS: Coarse rhonchi. CARDIOVASCULAR: Regular S1 and S2. Tachycardic. Pacemaker is in the right subclavian. ABDOMEN: Soft.PEG in place EXTREMITIES: Contracted. Oscar Corley MD Feb 11, 2020 12:51
--- NOTE | 2020-02-11 12:53 | Diagnostic Imaging Report ---
Indication: Dyspnea Comparison: 02/01/2020 A single view chest radiograph was obtained. Findings: No definite infiltrate or pulmonary vascular congestion identified. Pacemaker noted on the right. The heart is enlarged. The aorta is mildly enlarged consistent with atherosclerotic vascular disease. The bones are osteopenic. There are thoracic vertebral enthesophytes at multiple levels. Impression: No acute disease
--- NOTE | 2020-02-11 14:08 | Surgery Progress Note ---
Surgery Progress Note Subjective Additional Comments leukocytosis febrile trop noted ill Objective Last 24 Hour Vital Signs Date Time Temp Pulse Resp B/P (MAP) Pulse Ox O2 Delivery O2 Flow Rate FiO2 02/11/20 09:00 90 128/61 02/11/20 09:00 Room Air 02/11/20 08:00 100.3 90 16 128/61 (83) 96 02/11/20 04:00 99.1 94 17 139/72 (94) 95 02/11/20 04:00 88 02/11/20 00:00 91 02/10/20 23:27 100.0 91 16 158/50 (86) 95 02/10/20 22:40 99.5 02/10/20 22:37 99.5 02/10/20 21:00 Room Air 02/10/20 20:00 101.0 91 16 117/71 (86) 96 02/10/20 20:00 120 02/10/20 16:00 118 02/10/20 16:00 97.6 119 18 129/85 (100) 96 I&O Intake and Output 02/10/20 02/11/20 19:00 07:00 Intake Total 860 ml 133.934 ml Output Total 8800 ml 1200 ml Balance -7940 ml -1066.066 ml Free Water 200 ml IV Total 133.934 ml Tube Feeding 660 ml Output Urine Total 8800 ml 1200 ml # Voids 1 # Bowel Movements 1 1 Dressing: other Wound: other Drains: other Cardiovascular: RSR Respiratory: decreased breath sounds Abdomen: soft, non-tender, present bowel sounds Extremities: no cyanosis Laboratory Tests Test 02/10/20 20:05 02/11/20 00:00 02/11/20 02:50 02/11/20 06:10 Troponin I 31.161 ng/mL (0.000-0.056) 26.877 ng/mL (0.000-0.056) White Blood Count 17.0 K/UL (4.8-10.8) H 17.5 K/UL (4.8-10.8) H Red Blood Count 3.48 M/UL (4.20-5.40) L 3.46 M/UL (4.20-5.40) L Hemoglobin 9.6 G/DL (12.0-16.0) L 9.5 G/DL (12.0-16.0) L Hematocrit 28.8 % (37.0-47.0) L 28.5 % (37.0-47.0) L Mean Corpuscular Volume 83 FL (80-99) 82 FL (80-99) Mean Corpuscular Hemoglobin 27.6 PG (27.0-31.0) 27.6 PG (27.0-31.0) Mean Corpuscular Hemoglobin Concent 33.4 G/DL (32.0-36.0) 33.5 G/DL (32.0-36.0) Red Cell Distribution Width 13.9 % (11.6-14.8) 14.3 % (11.6-14.8) Platelet Count 520 K/UL (150-450) H 530 K/UL (150-450) H Mean Platelet Volume 5.3 FL (6.5-10.1) L 5.6 FL (6.5-10.1) L Neutrophils (%) (Auto) 83.9 % (45.0-75.0) H 84.5 % (45.0-75.0) H Lymphocytes (%) (Auto) 7.7 % (20.0-45.0) L 7.5 % (20.0-45.0) L Monocytes (%) (Auto) 7.3 % (1.0-10.0) 7.1 % (1.0-10.0) Eosinophils (%) (Auto) 0.3 % (0.0-3.0) 0.3 % (0.0-3.0) Basophils (%) (Auto) 0.9 % (0.0-2.0) 0.6 % (0.0-2.0) Activated Partial Thromboplast Time 30 SEC (23-33) 42 SEC (23-33) H Sodium Level 146 MMOL/L (136-145) H Potassium Level 4.4 MMOL/L (3.5-5.1) Chloride Level 112 MMOL/L (98-107) H Carbon Dioxide Level 26 MMOL/L (21-32) Anion Gap 8 mmol/L (5-15) Blood Urea Nitrogen 33 mg/dL (7-18) H Creatinine 1.1 MG/DL (0.55-1.30) Estimat Glomerular Filtration Rate 57.7 mL/min (>60) Glucose Level 178 MG/DL (74-106) H Calcium Level 8.2 MG/DL (8.5-10.1) L Test 02/11/20 09:10 Troponin I 23.539 ng/mL (0.000-0.056) Plan Problems: (1) Septic shock Assessment & Plan: Patient presented to emergency department with sepsis hypotension tachycardia lactic acidosis leukocytosis. On IV antibiotics Labs improving IV hydration Continue tube feeds advance goal as tolerated Abdominal exam does elicit patient to retract a bit but she is not tender peritonitis or without rebound or significant guarding. exam improved Likely startle effect rather than intra-abdominal pathology will follow with serial exams continue with current care plan thank you for let me participate in patient's care leukocytosis. c diff negative. blood cultures noted abx as per ID Severe left hydronephrosis versus parapelvic cysts. No definite obstructing stone. Mild bladder wall thickening with small gas foci in the bladder, concerning for cystitis. Please correlate with urinalysis. Acute NSTEMI with peak troponin 31 as per cardiology wbc fever micro (2) Decubitus skin ulcer Assessment & Plan: 84-year-old female presented on admission with multiple decubitus skin ulcers and skin concerns. Patient identified to have a unstageable sacral lower back decubitus ulcer, periwound maceration, area of necrotic eschar soft, no drainage, no abscess, no foul odor Pt presented on admission with contractures, Multiple Pressure injuries.open DTPI sacrum.Wound is open at sacrococcygeal area(40%), with soft necrotic base ( L)5.5cm x (W)4.5cm. Surrounding base of wound is maroon and indurated. Total area of sacral DTPI measures(L) 12.5cm x (W)15cm. Non-blanching erythema periwound.In addition several small partial thickness wounds noted along Perineum.` Areas of hyperpigmentation noted to L and R trochanteric. Full thickness wound R knee.(L)1.1cm x (W)1.5cm.1 Base of wound 90% pink granulation,10% slough noted in center of wound. Borders are macerated.small amt serous exudate. No odor noted. No erythema or fluctuance noted periwound. Non-blanching erythema with fluctuance R heel. Unstageable pressure injury R hallux. Base of wound is 100% soft necrosis. Edges adherent and dry.No odor or exudate noted.Surrounding darker skin tone without erythema or fluctuance(L)2.6cm x (W)3cm. DTPI R Ankle(L)0.9cm x (W)1.6cm. Base of wound is fluctuant, maroon with marginal erythema. Periwound without erythema or fluctuance. Unstageable pressure injury distal/lateral R foot. Base of wound 100% soft necrosis with surrounding non-blanching erythema with fluctuance.(L)2cm x (W) 0.9cm. Stable dry eschar medial/lateral R foot (L)0.4cm x (W)0.8cm. Stable dry eschar lateral L heel.(L)1.9cm x (W)2.2cm. No erythema or fluctuance periwound. Unstable pressure injury medial/lateral L foot. Base of wound is 100% necrotic but dry.(L)0.7cm x (W)0.8cm. Unstageable pressure injury distal/lateral L foot. Base of wound is 100% necrotic but dry. (L)1.2cm x (W)1.6cm.non-blanching erythema without fluctuance periwound. Non-blanching erythema without fluctuance lateral L 5th metatarsal.(L)1.5cm x (W )0.5cm. Open DTPI L Hallux.Base of wound has mixed necrosis and slough with surrounding base of wound maroon with fluctuance. Non-blanching erythema without elevation in skin temp,or fluctuance periwound. Tx.plan: Cleanse Sacral wound with Saline. Apply TheraHoney. Apply Moisture Barrier Paste Periwound. Cover with Optifoam drsg. Change Daily and prn. Swab R nee with Betadine. Cover with Optifoam drsg every 3 days and prn. Swab wounds R foot with Betadine. Cover each wound with Optifoam drsg. Change every 3 days and prn. Swab wounds L foot with Betadine. Cover each wound with Optifoam drsg. Change every 3 days and prn. Reposition at least every 2hours or as tolerated. Place pillow between knees. Off-load heels with Pillow. APM/AREIL Mattress. DAILY ESTIMATED NEEDS: Needs based on Wounds, underweight 50kg 30-35 kcals/kg 3430-0027 total kcals 1.25-2 g protein/kg 63-100 g total protein 25-30 mL/kg 2729-8073 total fluid mLs NUTRITION DIAGNOSIS: Increased kcal and pro needs r/t underweight status and wound healing as evidenced by pt @85% [place] Body Weight w/ multiple wounds, eval pending, pt is PEG dep. CURRENT TF:Glucerna 1.5 @60ml x20 hrs ENTERAL NUTRITION RECOMMENDATIONS: Maintain current TF as tolerated: Glucerna 1.5 @60ml/hr x20 hrs to provide 1200ml, 1800 kcal, 99g pro, 911ml free H2o -> Monitor for hypoglycemia and need to change to non carb control formula -> Flush per MD. HOB over 30 degrees ADDITIONAL RECOMMENDATIONS: 1) On iso, per SNF pt is: 65 inches + 110#/50kg 2) Wound care: add MATT in 4oz H2O BID via GT F/up w/ WC eval 3) Maintain calibrated bed scale wts 4) Monitor for continued hypoglycemic events, need for D5 or TF change Luther Mercedes Feb 11, 2020 14:08
[2020-02-11 15:15] LABS: APPEARANCE,URINE CLEAR; BILIRUBIN, URINE NEGATIVE (NEGATIVE); GLUCOSE, URINE (UA) NEGATIVE (NEGATIVE); KETONES,URINE NEGATIVE (NEGATIVE); LEUKOCYTE ESTERASE ,URINE NEGATIVE (NEGATIVE); NITRITE,URINE NEGATIVE (NEGATIVE); PH,URINE 7 (4.5-8.0); PROTEIN,URINE 3+ (NEGATIVE); UROBILINOGEN,URINE NORMAL MG/DL (0.0-1.0)
[2020-02-11 15:19] LABS: COLOR,URINE YELLOW
[2020-02-11 16:00] VITALS: BP 142/83
[2020-02-11 20:00] VITALS: BP 148/84
[2020-02-11] MEDS: cefTRIAXone 1 GM in D5W 50 ML IVPB SCH (21:00)
--- NOTE | 2020-02-11 21:47 | Neurology Progress Note ---
Interim History Interim History ROS Limited/Unobtainable: Yes - pt is aphasic Interim History still with fevers and high wbc Objective Physical Exam Last Vital Signs Date Time Temp Pulse Resp B/P (MAP) Pulse Ox O2 Delivery O2 Flow Rate FiO2 02/11/20 20:00 94 02/11/20 20:00 99.0 20 148/84 (105) 96 02/11/20 09:00 Room Air 02/09/20 04:00 2.0 02/07/20 19:19 28 Laboratory Tests Test 02/11/20 00:00 02/11/20 02:50 02/11/20 06:10 02/11/20 09:10 White Blood Count 17.0 K/UL (4.8-10.8) H 17.5 K/UL (4.8-10.8) H Red Blood Count 3.48 M/UL (4.20-5.40) L 3.46 M/UL (4.20-5.40) L Hemoglobin 9.6 G/DL (12.0-16.0) L 9.5 G/DL (12.0-16.0) L Hematocrit 28.8 % (37.0-47.0) L 28.5 % (37.0-47.0) L Mean Corpuscular Volume 83 FL (80-99) 82 FL (80-99) Mean Corpuscular Hemoglobin 27.6 PG (27.0-31.0) 27.6 PG (27.0-31.0) Mean Corpuscular Hemoglobin Concent 33.4 G/DL (32.0-36.0) 33.5 G/DL (32.0-36.0) Red Cell Distribution Width 13.9 % (11.6-14.8) 14.3 % (11.6-14.8) Platelet Count 520 K/UL (150-450) H 530 K/UL (150-450) H Mean Platelet Volume 5.3 FL (6.5-10.1) L 5.6 FL (6.5-10.1) L Neutrophils (%) (Auto) 83.9 % (45.0-75.0) H 84.5 % (45.0-75.0) H Lymphocytes (%) (Auto) 7.7 % (20.0-45.0) L 7.5 % (20.0-45.0) L Monocytes (%) (Auto) 7.3 % (1.0-10.0) 7.1 % (1.0-10.0) Eosinophils (%) (Auto) 0.3 % (0.0-3.0) 0.3 % (0.0-3.0) Basophils (%) (Auto) 0.9 % (0.0-2.0) 0.6 % (0.0-2.0) Activated Partial Thromboplast Time 30 SEC (23-33) 42 SEC (23-33) H Sodium Level 146 MMOL/L (136-145) H Potassium Level 4.4 MMOL/L (3.5-5.1) Chloride Level 112 MMOL/L (98-107) H Carbon Dioxide Level 26 MMOL/L (21-32) Anion Gap 8 mmol/L (5-15) Blood Urea Nitrogen 33 mg/dL (7-18) H Creatinine 1.1 MG/DL (0.55-1.30) Estimat Glomerular Filtration Rate 57.7 mL/min (>60) Glucose Level 178 MG/DL (74-106) H Calcium Level 8.2 MG/DL (8.5-10.1) L Troponin I 26.877 ng/mL (0.000-0.056) 23.539 ng/mL (0.000-0.056) Test 02/11/20 14:30 Urine Color Yellow Urine Appearance Clear Urine pH 7 (4.5-8.0) Urine Specific [place] 1.005 (1.005-1.035) Urine Protein 3+ (NEGATIVE) H Urine Glucose (UA) Negative (NEGATIVE) Urine Ketones Negative (NEGATIVE) Urine Blood 1+ (NEGATIVE) H Urine Nitrite Negative (NEGATIVE) Urine Bilirubin Negative (NEGATIVE) Urine Urobilinogen Normal MG/DL (0.0-1.0) Urine Leukocyte Esterase Negative (NEGATIVE) Urine RBC 0-2 /HPF (0 - 2) Urine WBC 0-2 /HPF (0 - 2) Urine Squamous Epithelial Cells Occasional /LPF Urine Bacteria Moderate /HPF (NONE) H Urine Yeast Moderate /HPF (NONE) H Stool Occult Blood Pending Head: normocophalic, atraumatic Neck: no rigidity EENT: benign Neurologic Exam Sensory: other - cc 35 min Objective lethargic, minimal withdraw in all 4 cc 35 min Impression/Recommendations Problems: (1) Septic shock (2) Anemia (3) Elevated troponin (4) Sepsis (5) Decubitus skin ulcer Status: stable Diagnostic Impression Acute encephalopathy in the context of sepsis Dementia, likely vascular Hx of strokes Monitor neuro exam Delirium precautions atb broad spectrum asa daily Luis Nash MD Feb 11, 2020 21:47
[2020-02-11] MEDS: Atorvastatin 20mg tab ORAL SCH (22:18)
[2020-02-11] MEDS ORDERED: cefTRIAXone 1 GM in D5W 55 ML IVPB ONE (23:00)
[2020-02-12] VITALS: BP 141/57
[2020-02-12 04:00] VITALS: BP 145/59
[2020-02-12] MEDS: Levothyroxine 25mcg tab ORAL SCH (06:19)
[2020-02-12 07:17] LABS: BASOPHILS % (AUTO) 0.7 % (0.0-2.0); EOSINOPHILS % (AUTO) 0.5 % (0.0-3.0); HEMOGLOBIN 8.9 G/DL (12.0-16.0); LYMPHOCYTES % (AUTO) 10.2 % (20.0-45.0); MEAN CORPUSCULAR VOLUME 83 FL (80-99); MONOCYTES % (AUTO) 7.5 % (1.0-10.0); NEUTROPHILS % (AUTO) 81.1 % (45.0-75.0); PLATELET COUNT 539 K/UL (150-450); RED BLOOD COUNT 3.24 M/UL (4.20-5.40); RED CELL DISTRIBUTION WIDTH 14.5 % (11.6-14.8); WHITE BLOOD COUNT 13.6 K/UL (4.8-10.8)
[2020-02-12 07:23] LABS: ALANINE AMINOTRANSFERASE 32 U/L (12-78); ALBUMIN 1.4 G/DL (3.4-5.0); ALBUMIN/GLOBULIN RATIO 0.3 (1.0-2.7); ALKALINE PHOSPHATASE 88 U/L (46-116); ANION GAP 12 mmol/L (5-15); ASPARTATE AMINO TRANSFERASE 51 U/L (15-37); BILIRUBIN,TOTAL 0.1 MG/DL (0.2-1.0); BLOOD UREA NITROGEN 26 mg/dL (7-18); CALCIUM 8.4 MG/DL (8.5-10.1); CARBON DIOXIDE 24 MMOL/L (21-32); CHLORIDE 115 MMOL/L (98-107); POTASSIUM 4.1 MMOL/L (3.5-5.1); SODIUM 151 MMOL/L (136-145)
[2020-02-12 08:00] VITALS: BP 125/70
[2020-02-12] MEDS: Metoprolol Succinate XL 25mg tab ORAL SCH ×2 (09:00→09:22)
[2020-02-12] MEDS: Pantoprazole Inj IVP SCH ×2 (09:23→21:23)
[2020-02-12] MEDS: Aspirin Baby 81mg GT SCH (09:23)
--- NOTE | 2020-02-12 10:07 | General Progress Note ---
Assessment/Plan Status: stable Assessment/Plan: 84 year old woman with history of CVA, hemiplegia, DM, COPD, CKD, hyperlipidemia , hypothyroidism, GERD, unspecified CHF, S/p PPM brought in from SNF with hypotension, found to be septic with leukocytosis and minimal pyuria #Sepsis #Citrobacter bacteremia #Hypotension #Elevated lactate, improved #Leukocytosis - remains elevated #diarrhea #Fever -continue inpatient level of care -cardiac monitoring -suspect intraabdominal source -BCx 01/29 +citrobacter -repeat BC 02/02 negative -c diff negative -Cont.imodium PRN -cont to hold anti-hypertensives -COVID 19 negative -CT abd/pel reviewed -pt w/fever on 02/10, repeat BCx, UA, UCx, CXR -ID following: CTX -d/w son, stated patient has 1 functioning kidney, unsure which kidney -We will hold off on CT abdomen/pelvis with contrast for now -Renal US ordered #Left Hydronephrosis #Cystitis #Possible UTI #?one kidney -CT A/p showing possible hydro and cystitis -UA w/bacteria/yeast -UCx pending -Urology Consulted, Dr. Leos, reccs appreciated -d/w nephro/urology -management as above #NSTEMI, likely type II MD #HTN #HLD #Elevated BNP #S/p PPM #Sinus tachycardia -cont Toprol -monitor closely for evidence of fluid overload -Echo w/normal EF -PPM interrogated, showed sinus tach -EP consulted: heparin ggt d/c, cont. 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 Additional 30 mins was spent on updating family POC, counseling. Subjective ROS Limited/Unobtainable: Yes - pt is aphasic Allergies: Coded Allergies: No Known Allergies (Unverified , 01/30/20) Subjective Follow up for NSTEMI, gram negative bacteremia, leukocytosis. COVID 19 Negative. No acute events overnight. Troponins downtrending. Off heparin ggt, Cardiology following. No signs of bleeding. Patient aphasic/non-verbal at b/l. D/w son, Terry, on phone at length with medical updates, POC. Son informed me pt has one functioning kidney. Answered all questions and concerns. Objective Last 24 Hour Vital Signs Date Time Temp Pulse Resp B/P (MAP) Pulse Ox O2 Delivery O2 Flow Rate FiO2 02/12/20 09:00 62 125/70 02/12/20 08:00 98.2 62 18 125/70 (88) 93 02/12/20 07:47 94 02/12/20 04:00 95 02/12/20 04:00 98.0 87 20 145/59 (87) 97 02/12/20 00:00 93 02/12/20 00:00 98.2 88 20 141/57 (85) 97 02/11/20 21:00 Room Air 02/11/20 20:00 94 02/11/20 20:00 99.0 84 20 148/84 (105) 96 02/11/20 16:00 98.7 84 18 142/83 (102) 95 02/11/20 16:00 87 02/11/20 12:00 92 02/11/20 12:00 98.2 86 20 161/69 (99) 95 Intake and Output 02/11/20 02/12/20 19:00 07:00 Intake Total 920 ml Output Total 9600 ml 300 ml Balance -8680 ml -300 ml Free Water 200 ml Tube Feeding 720 ml Output Urine Total 9600 ml 300 ml # Bowel Movements 1 1 Laboratory Tests 02/11/20 14:30: Urine Color Yellow, Urine Appearance Clear, Urine pH 7, Urine Specific [place] 1.005, Urine Protein 3+H, Urine Glucose (UA) Negative, Urine Ketones Negative, Urine Blood 1+H, Urine Nitrite Negative, Urine Bilirubin Negative, Urine Urobilinogen Normal, Urine Leukocyte Esterase Negative, Urine RBC 0-2, Urine WBC 0-2, Urine Squamous Epithelial Cells Occasional, Urine Bacteria ModerateH, Urine Yeast ModerateH, Stool Occult Blood [Pending] 02/12/20 05:48: White Blood Count 13.6H, Red Blood Count 3.24L, Hemoglobin 8.9L, Hematocrit 27.0L, Mean Corpuscular Volume 83, Mean Corpuscular Hemoglobin 27.5, Mean Corpuscular Hemoglobin Concent 33.0, Red Cell Distribution Width 14.5, Platelet Count 539H, Mean Platelet Volume 5.9L, Neutrophils (%) (Auto) 81.1H, Lymphocytes (%) (Auto) 10.2L, Monocytes (%) (Auto) 7.5, Eosinophils (%) (Auto) 0.5, Basophils (%) (Auto) 0.7, Sodium Level 151H, Potassium Level 4.1, Chloride Level 115H, Carbon Dioxide Level 24, Anion Gap 12, Blood Urea Nitrogen 26H, Creatinine 1.0, Estimat Glomerular Filtration Rate > 60, Glucose Level 133H, Calcium Level 8.4L, Total Bilirubin 0.1L, Aspartate Amino Transf (AST/SGOT) 51H , Alanine Aminotransferase (ALT/SGPT) 32, Alkaline Phosphatase 88, Total Protein 6.7, Albumin 1.4L, Globulin 5.3, Albumin/Globulin Ratio 0.3L Height (Feet): 5 Height (Inches): 2.00 Weight (Pounds): 123 Objective General Appearance: NAD, non-verbal, awake, alert, cachetic HEENT: NCAT, dry MM CV: RRR Respiratory: lungs clear, normal breath sounds, no respiratory distress Abdomen: non tender, soft, +PEG tube, c/d/i Ext: Contracted bilaterally, multiple abrasions wrapped in bandages C/D/I Lorna Uribe M.D. Feb 12, 2020 10:07
--- NOTE | 2020-02-12 10:39 | General Progress Note ---
Assessment/Plan Problem List: (1) Diarrhea ICD Codes: R19.7 - Diarrhea, unspecified SNOMED: 17237823 (2) GI (gastrointestinal bleed) ICD Codes: K92.2 - Gastrointestinal hemorrhage, unspecified SNOMED: 43625733 (3) Elevated troponin ICD Codes: R79.89 - Other specified abnormal findings of blood chemistry; R65.21 - Severe sepsis with septic shock SNOMED: 927872006, 868863045, 454670135 (4) Anemia ICD Codes: D64.9 - Anemia, unspecified SNOMED: 351967591 (5) Septic shock ICD Codes: A41.9 - Sepsis, unspecified organism; R65.21 - Severe sepsis with septic shock SNOMED: 84958424 Status: stable Assessment/Plan: diarrhea is better with Lomotil and Imodium neg stool C.diff ppi TF to Glucerna 1.2 s/p blood transfusion last week COVID >>> neg given active VT and stable H&H will hold GI procedures for now repeat stool ob repeat CBC fu ID regarding ABX treatment of [place] CT reviewed Subjective Allergies: Coded Allergies: No Known Allergies (Unverified , 01/30/20) Objective Last 24 Hour Vital Signs Date Time Temp Pulse Resp B/P (MAP) Pulse Ox O2 Delivery O2 Flow Rate FiO2 02/12/20 09:00 62 125/70 02/12/20 09:00 Room Air 02/12/20 08:00 98.2 62 18 125/70 (88) 93 02/12/20 07:47 94 02/12/20 04:00 95 02/12/20 04:00 98.0 87 20 145/59 (87) 97 02/12/20 00:00 93 02/12/20 00:00 98.2 88 20 141/57 (85) 97 02/11/20 21:00 Room Air 02/11/20 20:00 94 02/11/20 20:00 99.0 84 20 148/84 (105) 96 02/11/20 16:00 98.7 84 18 142/83 (102) 95 02/11/20 16:00 87 02/11/20 12:00 92 02/11/20 12:00 98.2 86 20 161/69 (99) 95 Intake and Output 02/11/20 02/12/20 19:00 07:00 Intake Total 920 ml Output Total 9600 ml 300 ml Balance -8680 ml -300 ml Free Water 200 ml Tube Feeding 720 ml Output Urine Total 9600 ml 300 ml # Bowel Movements 1 1 Laboratory Tests 02/11/20 14:30: Urine Color Yellow, Urine Appearance Clear, Urine pH 7, Urine Specific [place] 1.005, Urine Protein 3+H, Urine Glucose (UA) Negative, Urine Ketones Negative, Urine Blood 1+H, Urine Nitrite Negative, Urine Bilirubin Negative, Urine Urobilinogen Normal, Urine Leukocyte Esterase Negative, Urine RBC 0-2, Urine WBC 0-2, Urine Squamous Epithelial Cells Occasional, Urine Bacteria ModerateH, Urine Yeast ModerateH, Stool Occult Blood [Pending] 02/12/20 05:48: White Blood Count 13.6H, Red Blood Count 3.24L, Hemoglobin 8.9L, Hematocrit 27.0L, Mean Corpuscular Volume 83, Mean Corpuscular Hemoglobin 27.5, Mean Corpuscular Hemoglobin Concent 33.0, Red Cell Distribution Width 14.5, Platelet Count 539H, Mean Platelet Volume 5.9L, Neutrophils (%) (Auto) 81.1H, Lymphocytes (%) (Auto) 10.2L, Monocytes (%) (Auto) 7.5, Eosinophils (%) (Auto) 0.5, Basophils (%) (Auto) 0.7, Sodium Level 151H, Potassium Level 4.1, Chloride Level 115H, Carbon Dioxide Level 24, Anion Gap 12, Blood Urea Nitrogen 26H, Creatinine 1.0, Estimat Glomerular Filtration Rate > 60, Glucose Level 133H, Calcium Level 8.4L, Total Bilirubin 0.1L, Aspartate Amino Transf (AST/SGOT) 51H , Alanine Aminotransferase (ALT/SGPT) 32, Alkaline Phosphatase 88, Total Protein 6.7, Albumin 1.4L, Globulin 5.3, Albumin/Globulin Ratio 0.3L Height (Feet): 5 Height (Inches): 2.00 Weight (Pounds): 123 General Appearance: no apparent distress EENT: normal ENT inspection Neck: supple Cardiovascular: normal rate Respiratory/Chest: decreased breath sounds Abdomen: normal bowel sounds, non tender, soft Extremities: non-tender Herminio Rodriguez MD Feb 12, 2020 10:39
[2020-02-12] MEDS ORDERED: Omnipaque-300 100ml vial INJ PRN (10:45)
[2020-02-12 12:00] VITALS: BP 141/69
--- NOTE | 2020-02-12 12:59 | Urology Progress Note ---
Assessment/Plan Status: stable Assessment/Plan: 1. Possible left-sided hydronephrosis versus parapelvic cyst. 2. Urinary retention. 3. Neurogenic bladder. 4. Proteinuria. 5. Hematuria. 6. Pyuria. 7. Sepsis history. 8. Cystitis. monitor clinically john indwelling hand irrigated and do PRN monitor renal fxn and WBC consider CT A/P with IV contrast d/w Dr. Uribe, will wait for now to limit contrast toxicity cysto at some point on abx voiding trial later f/u on last urine cx Subjective Allergies: Coded Allergies: No Known Allergies (Unverified , 01/30/20) Subjective all noted Objective Last 24 Hour Vital Signs Date Time Temp Pulse Resp B/P (MAP) Pulse Ox O2 Delivery O2 Flow Rate FiO2 02/12/20 09:00 62 125/70 02/12/20 09:00 Room Air 02/12/20 08:00 98.2 62 18 125/70 (88) 93 02/12/20 07:47 94 02/12/20 04:00 95 02/12/20 04:00 98.0 87 20 145/59 (87) 97 02/12/20 00:00 93 02/12/20 00:00 98.2 88 20 141/57 (85) 97 02/11/20 21:00 Room Air 02/11/20 20:00 94 02/11/20 20:00 99.0 84 20 148/84 (105) 96 02/11/20 16:00 98.7 84 18 142/83 (102) 95 02/11/20 16:00 87 Intake and Output 02/11/20 02/12/20 19:00 07:00 Intake Total 920 ml Output Total 9600 ml 300 ml Balance -8680 ml -300 ml Free Water 200 ml Tube Feeding 720 ml Output Urine Total 9600 ml 300 ml # Bowel Movements 1 1 Microbiology Date/Time Source Procedure Growth Status 02/03/20 04:15 Blood Blood Culture - Final NO GROWTH AFTER 5 DAYS Complete 01/30/20 15:45 Nasal Nares MRSA Culture - Final NO METHICILLIN RESISTANT STAPH AUREUS... Complete 02/04/20 19:00 Stool Clostridium difficile Toxin Assay - Final Complete 02/11/20 14:30 Urine,Clean Catch Urine Culture - Preliminary Resulted 01/30/20 15:45 Rectum VRE Culture - Final NO VANCOMYCIN RESISTANT ENTEROCOCCUS ... Complete Current Medications Medications (Trade) Dose Ordered Sig/[place] Route PRN Reason Start Time Stop Time Status Last Admin Dose Admin Acetaminophen (Tylenol) 650 mg Q4H PRN GT Mild Pain/Temp > 100.5 02/09/20 14:30 03/08/20 10:29 02/10/20 22:07 Aspirin (ASA) 81 mg DAILY GT 02/11/20 09:00 03/27/20 08:59 02/12/20 09:23 Atorvastatin Calcium (Lipitor) 40 mg BEDTIME ORAL 02/09/20 21:00 04/29/20 20:59 02/11/20 22:18 Ceftriaxone Sodium 1 gm/ Dextrose 50 ml @ 100 mls/hr Q24H IVPB 02/10/20 21:00 02/12/20 20:59 02/10/20 22:06 Dextrose (Dextrose 50%) 25 ml Q30M PRN IV Hypoglycemia 02/09/20 14:30 04/29/20 18:59 Dextrose (Dextrose 50%) 50 ml Q30M PRN IV Hypoglycemia 02/09/20 14:30 04/29/20 18:59 Diphenhydramine HCl (Benadryl) 25 mg Q6H PRN ORAL Itching/Pruritis 02/09/20 15:00 03/10/20 14:59 Diphenoxylate HCl/ Atropine (Lomotil) 2.5 mg Q4H PRN GT Diarrhea 02/09/20 15:00 03/08/20 14:59 Levothyroxine Sodium (Synthroid) 25 mcg DAILY@0630 ORAL 02/10/20 06:30 03/01/20 06:29 02/12/20 06:19 Loperamide HCl (Imodium) 2 mg Q3H PRN NG Diarrhea 02/10/20 12:45 03/11/20 12:44 Metoprolol Succinate (Toprol XL) 25 mg DAILY ORAL 02/10/20 09:00 05/09/20 08:59 02/11/20 09:00 Ondansetron HCl (Zofran) 4 mg Q6H PRN IVP Nausea & Vomiting 02/09/20 15:00 02/29/20 14:59 Pantoprazole (Protonix) 40 mg EVERY 12 HOURS IVP 3/28/20 21:00 03/08/20 20:59 02/12/20 09:23 Laboratory Tests 02/11/20 14:30: Urine Color Yellow, Urine Appearance Clear, Urine pH 7, Urine Specific [place] 1.005, Urine Protein 3+H, Urine Glucose (UA) Negative, Urine Ketones Negative, Urine Blood 1+H, Urine Nitrite Negative, Urine Bilirubin Negative, Urine Urobilinogen Normal, Urine Leukocyte Esterase Negative, Urine RBC 0-2, Urine WBC 0-2, Urine Squamous Epithelial Cells Occasional, Urine Bacteria ModerateH, Urine Yeast ModerateH, Stool Occult Blood Negative 02/12/20 05:48: White Blood Count 13.6H, Red Blood Count 3.24L, Hemoglobin 8.9L, Hematocrit 27.0L, Mean Corpuscular Volume 83, Mean Corpuscular Hemoglobin 27.5, Mean Corpuscular Hemoglobin Concent 33.0, Red Cell Distribution Width 14.5, Platelet Count 539H, Mean Platelet Volume 5.9L, Neutrophils (%) (Auto) 81.1H, Lymphocytes (%) (Auto) 10.2L, Monocytes (%) (Auto) 7.5, Eosinophils (%) (Auto) 0.5, Basophils (%) (Auto) 0.7, Sodium Level 151H, Potassium Level 4.1, Chloride Level 115H, Carbon Dioxide Level 24, Anion Gap 12, Blood Urea Nitrogen 26H, Creatinine 1.0, Estimat Glomerular Filtration Rate > 60, Glucose Level 133H, Calcium Level 8.4L, Total Bilirubin 0.1L, Aspartate Amino Transf (AST/SGOT) 51H , Alanine Aminotransferase (ALT/SGPT) 32, Alkaline Phosphatase 88, Total Protein 6.7, Albumin 1.4L, Globulin 5.3, Albumin/Globulin Ratio 0.3L Height (Feet): 5 Height (Inches): 2.00 Weight (Pounds): 123 Objective exam stable Timothy Leos MD Feb 12, 2020 12:59
--- NOTE | 2020-02-12 13:06 | Nephrology Progress Note ---
Assessment/Plan Plan #hypernatremia due to free water deficit of close to 3L-improved #sepsis due to Citrobacter bacteremia #h/o CVA with hemiplegia #DM #COPD # hyperlipidemia #hypothyroidism # GERD # unspecified CHF, S/p PPM # possible hydronephrosis on CT sodium 151 will give 1L D5W bolus over 5 hours Cr 1.0 per son- one kidney non- function order renal US with doppler- consider mag 3 scan pending renal US - continue free water flushes to [id number] - monitor bmp daily - continue abx - avoid nephrotoxins - strict I&Os - daily weights - monitor lytes - urology eval - consider CT with IV contrast - monitor Cr closely Subjective ROS Limited/Unobtainable: Yes Subjective afebrile overnight labs reviewed-> WBC down to 13.5 sodium 151 will give 1L D5W bolus Cr 1.0 per son- one kidney non- function order renal US with doppler Seen by Urology regarding possible hydronephrosis on CT Objective Objective Last 24 Hour Vital Signs Date Time Temp Pulse Resp B/P (MAP) Pulse Ox O2 Delivery O2 Flow Rate FiO2 02/12/20 09:00 62 125/70 02/12/20 09:00 Room Air 02/12/20 08:00 98.2 62 18 125/70 (88) 93 02/12/20 07:47 94 02/12/20 04:00 95 02/12/20 04:00 98.0 87 20 145/59 (87) 97 02/12/20 00:00 93 02/12/20 00:00 98.2 88 20 141/57 (85) 97 02/11/20 21:00 Room Air 02/11/20 20:00 94 02/11/20 20:00 99.0 84 20 148/84 (105) 96 02/11/20 16:00 98.7 84 18 142/83 (102) 95 02/11/20 16:00 87 Intake and Output 02/11/20 02/12/20 19:00 07:00 Intake Total 920 ml Output Total 9600 ml 300 ml Balance -8680 ml -300 ml Free Water 200 ml Tube Feeding 720 ml Output Urine Total 9600 ml 300 ml # Bowel Movements 1 1 Laboratory Tests 02/11/20 14:30: Urine Color Yellow, Urine Appearance Clear, Urine pH 7, Urine Specific [place] 1.005, Urine Protein 3+H, Urine Glucose (UA) Negative, Urine Ketones Negative, Urine Blood 1+H, Urine Nitrite Negative, Urine Bilirubin Negative, Urine Urobilinogen Normal, Urine Leukocyte Esterase Negative, Urine RBC 0-2, Urine WBC 0-2, Urine Squamous Epithelial Cells Occasional, Urine Bacteria ModerateH, Urine Yeast ModerateH, Stool Occult Blood Negative 02/12/20 05:48: White Blood Count 13.6H, Red Blood Count 3.24L, Hemoglobin 8.9L, Hematocrit 27.0L, Mean Corpuscular Volume 83, Mean Corpuscular Hemoglobin 27.5, Mean Corpuscular Hemoglobin Concent 33.0, Red Cell Distribution Width 14.5, Platelet Count 539H, Mean Platelet Volume 5.9L, Neutrophils (%) (Auto) 81.1H, Lymphocytes (%) (Auto) 10.2L, Monocytes (%) (Auto) 7.5, Eosinophils (%) (Auto) 0.5, Basophils (%) (Auto) 0.7, Sodium Level 151H, Potassium Level 4.1, Chloride Level 115H, Carbon Dioxide Level 24, Anion Gap 12, Blood Urea Nitrogen 26H, Creatinine 1.0, Estimat Glomerular Filtration Rate > 60, Glucose Level 133H, Calcium Level 8.4L, Total Bilirubin 0.1L, Aspartate Amino Transf (AST/SGOT) 51H , Alanine Aminotransferase (ALT/SGPT) 32, Alkaline Phosphatase 88, Total Protein 6.7, Albumin 1.4L, Globulin 5.3, Albumin/Globulin Ratio 0.3L Height (Feet): 5 Height (Inches): 2.00 Weight (Pounds): 123 Objective General Appearance: NAD, otherwise awake, alert, confused Neck: normal alignment, supple CV: RRR Respiratory: lungs clear, normal breath sounds, no respiratory distress Abdomen: non tender, soft, +PEG tube, c/d/i Ext: Contracted bilaterally, multiple abrasions wrapped in bandages C/D/I Cathy Fuller M.D. Feb 12, 2020 13:06
--- NOTE | 2020-02-12 13:53 | Surgery Progress Note ---
Surgery Progress Note Subjective Symptoms: improved, tolerating diet, passing flatus Objective Last 24 Hour Vital Signs Date Time Temp Pulse Resp B/P (MAP) Pulse Ox O2 Delivery O2 Flow Rate FiO2 02/12/20 09:00 62 125/70 02/12/20 09:00 Room Air 02/12/20 08:00 98.2 62 18 125/70 (88) 93 02/12/20 07:47 94 02/12/20 04:00 95 02/12/20 04:00 98.0 87 20 145/59 (87) 97 02/12/20 00:00 93 02/12/20 00:00 98.2 88 20 141/57 (85) 97 02/11/20 21:00 Room Air 02/11/20 20:00 94 02/11/20 20:00 99.0 84 20 148/84 (105) 96 02/11/20 16:00 98.7 84 18 142/83 (102) 95 02/11/20 16:00 87 I&O Intake and Output 02/11/20 02/12/20 19:00 07:00 Intake Total 920 ml Output Total 9600 ml 300 ml Balance -8680 ml -300 ml Free Water 200 ml Tube Feeding 720 ml Output Urine Total 9600 ml 300 ml # Bowel Movements 1 1 Dressing: saturated Cardiovascular: RSR Respiratory: decreased breath sounds Abdomen: soft, non-tender, present bowel sounds Extremities: no cyanosis Laboratory Tests Test 02/11/20 14:30 02/12/20 05:48 Urine Color Yellow Urine Appearance Clear Urine pH 7 (4.5-8.0) Urine Specific [place] 1.005 (1.005-1.035) Urine Protein 3+ (NEGATIVE) H Urine Glucose (UA) Negative (NEGATIVE) Urine Ketones Negative (NEGATIVE) Urine Blood 1+ (NEGATIVE) H Urine Nitrite Negative (NEGATIVE) Urine Bilirubin Negative (NEGATIVE) Urine Urobilinogen Normal MG/DL (0.0-1.0) Urine Leukocyte Esterase Negative (NEGATIVE) Urine RBC 0-2 /HPF (0 - 2) Urine WBC 0-2 /HPF (0 - 2) Urine Squamous Epithelial Cells Occasional /LPF Urine Bacteria Moderate /HPF (NONE) H Urine Yeast Moderate /HPF (NONE) H Stool Occult Blood Negative (NEGATIVE) White Blood Count 13.6 K/UL (4.8-10.8) H Red Blood Count 3.24 M/UL (4.20-5.40) L Hemoglobin 8.9 G/DL (12.0-16.0) L Hematocrit 27.0 % (37.0-47.0) L Mean Corpuscular Volume 83 FL (80-99) Mean Corpuscular Hemoglobin 27.5 PG (27.0-31.0) Mean Corpuscular Hemoglobin Concent 33.0 G/DL (32.0-36.0) Red Cell Distribution Width 14.5 % (11.6-14.8) Platelet Count 539 K/UL (150-450) H Mean Platelet Volume 5.9 FL (6.5-10.1) L Neutrophils (%) (Auto) 81.1 % (45.0-75.0) H Lymphocytes (%) (Auto) 10.2 % (20.0-45.0) L Monocytes (%) (Auto) 7.5 % (1.0-10.0) Eosinophils (%) (Auto) 0.5 % (0.0-3.0) Basophils (%) (Auto) 0.7 % (0.0-2.0) Sodium Level 151 MMOL/L (136-145) H Potassium Level 4.1 MMOL/L (3.5-5.1) Chloride Level 115 MMOL/L (98-107) H Carbon Dioxide Level 24 MMOL/L (21-32) Anion Gap 12 mmol/L (5-15) Blood Urea Nitrogen 26 mg/dL (7-18) H Creatinine 1.0 MG/DL (0.55-1.30) Estimat Glomerular Filtration Rate > 60 mL/min (>60) Glucose Level 133 MG/DL (74-106) H Calcium Level 8.4 MG/DL (8.5-10.1) L Total Bilirubin 0.1 MG/DL (0.2-1.0) L Aspartate Amino Transf (AST/SGOT) 51 U/L (15-37) H Alanine Aminotransferase (ALT/SGPT) 32 U/L (12-78) Alkaline Phosphatase 88 U/L (46-116) Total Protein 6.7 G/DL (6.4-8.2) Albumin 1.4 G/DL (3.4-5.0) L Globulin 5.3 g/dL Albumin/Globulin Ratio 0.3 (1.0-2.7) L Plan Problems: (1) Septic shock Assessment & Plan: Patient presented to emergency department with sepsis hypotension tachycardia lactic acidosis leukocytosis. On IV antibiotics Labs improving IV hydration Continue tube feeds advance goal as tolerated Abdominal exam does elicit patient to retract a bit but she is not tender peritonitis or without rebound or significant guarding. exam improved Likely startle effect rather than intra-abdominal pathology will follow with serial exams continue with current care plan thank you for let me participate in patient's care leukocytosis. c diff negative. blood cultures noted abx as per ID Severe left hydronephrosis versus parapelvic cysts. No definite obstructing stone. Mild bladder wall thickening with small gas foci in the bladder, concerning for cystitis. Please correlate with urinalysis. Acute NSTEMI with peak troponin 31 as per cardiology wbc fever micro (2) Decubitus skin ulcer Assessment & Plan: 84-year-old female presented on admission with multiple decubitus skin ulcers and skin concerns. Patient identified to have a unstageable sacral lower back decubitus ulcer, periwound maceration, area of necrotic eschar soft, no drainage, no abscess, no foul odor Pt presented on admission with contractures, Multiple Pressure injuries.open DTPI sacrum.Wound is open at sacrococcygeal area(40%), with soft necrotic base ( L)5.5cm x (W)4.5cm. Surrounding base of wound is maroon and indurated. Total area of sacral DTPI measures(L) 12.5cm x (W)15cm. Non-blanching erythema periwound.In addition several small partial thickness wounds noted along Perineum.` Areas of hyperpigmentation noted to L and R trochanteric. Full thickness wound R knee.(L)1.1cm x (W)1.5cm.1 Base of wound 90% pink granulation,10% slough noted in center of wound. Borders are macerated.small amt serous exudate. No odor noted. No erythema or fluctuance noted periwound. Non-blanching erythema with fluctuance R heel. Unstageable pressure injury R hallux. Base of wound is 100% soft necrosis. Edges adherent and dry.No odor or exudate noted.Surrounding darker skin tone without erythema or fluctuance(L)2.6cm x (W)3cm. DTPI R Ankle(L)0.9cm x (W)1.6cm. Base of wound is fluctuant, maroon with marginal erythema. Periwound without erythema or fluctuance. Unstageable pressure injury distal/lateral R foot. Base of wound 100% soft necrosis with surrounding non-blanching erythema with fluctuance.(L)2cm x (W) 0.9cm. Stable dry eschar medial/lateral R foot (L)0.4cm x (W)0.8cm. Stable dry eschar lateral L heel.(L)1.9cm x (W)2.2cm. No erythema or fluctuance periwound. Unstable pressure injury medial/lateral L foot. Base of wound is 100% necrotic but dry.(L)0.7cm x (W)0.8cm. Unstageable pressure injury distal/lateral L foot. Base of wound is 100% necrotic but dry. (L)1.2cm x (W)1.6cm.non-blanching erythema without fluctuance periwound. Non-blanching erythema without fluctuance lateral L 5th metatarsal.(L)1.5cm x (W )0.5cm. Open DTPI L Hallux.Base of wound has mixed necrosis and slough with surrounding base of wound maroon with fluctuance. Non-blanching erythema without elevation in skin temp,or fluctuance periwound. Tx.plan: Cleanse Sacral wound with Saline. Apply TheraHoney. Apply Moisture Barrier Paste Periwound. Cover with Optifoam drsg. Change Daily and prn. Swab R nee with Betadine. Cover with Optifoam drsg every 3 days and prn. Swab wounds R foot with Betadine. Cover each wound with Optifoam drsg. Change every 3 days and prn. Swab wounds L foot with Betadine. Cover each wound with Optifoam drsg. Change every 3 days and prn. Reposition at least every 2hours or as tolerated. Place pillow between knees. Off-load heels with Pillow. APM/ARIEL Mattress. DAILY ESTIMATED NEEDS: Needs based on Wounds, underweight 50kg 30-35 kcals/kg 9578-1893 total kcals 1.25-2 g protein/kg 63-100 g total protein 25-30 mL/kg 0154-6212 total fluid mLs NUTRITION DIAGNOSIS: Increased kcal and pro needs r/t underweight status and wound healing as evidenced by pt @85% [place] Body Weight w/ multiple wounds, eval pending, pt is PEG dep. CURRENT TF:Glucerna 1.5 @60ml x20 hrs ENTERAL NUTRITION RECOMMENDATIONS: Maintain current TF as tolerated: Glucerna 1.5 @60ml/hr x20 hrs to provide 1200ml, 1800 kcal, 99g pro, 911ml free H2o -> Monitor for hypoglycemia and need to change to non carb control formula -> Flush per MD. HOB over 30 degrees ADDITIONAL RECOMMENDATIONS: 1) On iso, per SNF pt is: 65 inches + 110#/50kg 2) Wound care: add MATT in 4oz H2O BID via GT F/up w/ WC eval 3) Maintain calibrated bed scale wts 4) Monitor for continued hypoglycemic events, need for D5 or TF change Luther Mercedes Feb 12, 2020 13:53
--- NOTE | 2020-02-12 15:24 | Diagnostic Imaging Report ---
Indication: Abnormal renal function tests, flank pain Technique: Grayscale and duplex images of the kidneys, retroperitoneum, and bladder were obtained. Comparison: No comparison sonograms. Reference made to abdomen pelvis CT dated 02/09/2020 Findings: Right kidney measures 7.3 cm in length. Left kidney measures 12.1 cm in length. Both kidneys demonstrate normal echogenicity. Right kidney demonstrates mild collecting system fullness. Left kidney demonstrates moderate to severe hydronephrosis versus multiple parapelvic cysts versus combination of both. No calculi. There is some thinning of the left renal cortex. Normal inferior vena cava. Bladder demonstrates 156 mL volume, despite presence and apparent adequate position of a Tovar catheter. Impression: Moderate to severe left hydronephrosis versus parapelvic cysts mimicking hydronephrosis, versus combination of both. This also described on recent CT scan Atrophic right kidney. Mild right renal collecting system fullness, significance/etiology uncertain 156 mL bladder volume, despite a Tovar catheter being present.
[2020-02-12 16:00] VITALS: BP 137/69
--- NOTE | 2020-02-12 17:02 | Cardiac Electrophysiology PN ---
Assessment/Plan Assessment/Plan 1. Status post right-sided [employer] dual-chamber pacemaker implantation. Interrogation showed No Pacer Mediated tachycardia Just sinus tach likely due to acute TX with troponin 31. 2. Acute NSTEMI with peak troponin 31. Down to 23. Non verbal. Treat medically with aspirin, Lopressor and Lipitor. Repeat Echo on 02/11/20 EF 40-45% 3. Diabetes. 4. Hypertension, on Toprol 25 daily. 5. Status post septic shock 6. Severe anemia. Hemoglobin improved from 7.5 to 9.4. 7. Dementia. 8. CVA. 10. COPD. 11. Chronic kidney disease. 12. Dysphagia, status post PEG placement. DW RN Subjective Subjective Nonverbal.No further tachy after pacer reprogramming.Comfortable in NAD.Troponin level down now Objective Last 24 Hour Vital Signs Date Time Temp Pulse Resp B/P (MAP) Pulse Ox O2 Delivery O2 Flow Rate FiO2 02/12/20 16:00 97.8 86 18 137/69 (91) 95 02/12/20 12:00 98.2 82 18 141/69 (93) 96 02/12/20 11:42 92 02/12/20 09:00 62 125/70 02/12/20 09:00 Room Air 02/12/20 08:00 98.2 62 18 125/70 (88) 93 02/12/20 07:47 94 02/12/20 04:00 95 02/12/20 04:00 98.0 87 20 145/59 (87) 97 02/12/20 00:00 93 02/12/20 00:00 98.2 88 20 141/57 (85) 97 02/11/20 21:00 Room Air 02/11/20 20:00 94 02/11/20 20:00 99.0 84 20 148/84 (105) 96 Intake and Output 02/11/20 02/12/20 19:00 07:00 Intake Total 920 ml Output Total 9600 ml 300 ml Balance -8680 ml -300 ml Free Water 200 ml Tube Feeding 720 ml Output Urine Total 9600 ml 300 ml # Bowel Movements 1 1 Laboratory Tests Test 02/12/20 05:48 White Blood Count 13.6 K/UL (4.8-10.8) H Red Blood Count 3.24 M/UL (4.20-5.40) L Hemoglobin 8.9 G/DL (12.0-16.0) L Hematocrit 27.0 % (37.0-47.0) L Mean Corpuscular Volume 83 FL (80-99) Mean Corpuscular Hemoglobin 27.5 PG (27.0-31.0) Mean Corpuscular Hemoglobin Concent 33.0 G/DL (32.0-36.0) Red Cell Distribution Width 14.5 % (11.6-14.8) Platelet Count 539 K/UL (150-450) H Mean Platelet Volume 5.9 FL (6.5-10.1) L Neutrophils (%) (Auto) 81.1 % (45.0-75.0) H Lymphocytes (%) (Auto) 10.2 % (20.0-45.0) L Monocytes (%) (Auto) 7.5 % (1.0-10.0) Eosinophils (%) (Auto) 0.5 % (0.0-3.0) Basophils (%) (Auto) 0.7 % (0.0-2.0) Sodium Level 151 MMOL/L (136-145) H Potassium Level 4.1 MMOL/L (3.5-5.1) Chloride Level 115 MMOL/L (98-107) H Carbon Dioxide Level 24 MMOL/L (21-32) Anion Gap 12 mmol/L (5-15) Blood Urea Nitrogen 26 mg/dL (7-18) H Creatinine 1.0 MG/DL (0.55-1.30) Estimat Glomerular Filtration Rate > 60 mL/min (>60) Glucose Level 133 MG/DL (74-106) H Calcium Level 8.4 MG/DL (8.5-10.1) L Total Bilirubin 0.1 MG/DL (0.2-1.0) L Aspartate Amino Transf (AST/SGOT) 51 U/L (15-37) H Alanine Aminotransferase (ALT/SGPT) 32 U/L (12-78) Alkaline Phosphatase 88 U/L (46-116) Total Protein 6.7 G/DL (6.4-8.2) Albumin 1.4 G/DL (3.4-5.0) L Globulin 5.3 g/dL Albumin/Globulin Ratio 0.3 (1.0-2.7) L Microbiology Date/Time Source Procedure Growth Status 3/30/20 14:30 Urine,Clean Catch Urine Culture - Preliminary Resulted Objective HEAD AND NECK: Shows no JVD. LUNGS: Coarse rhonchi. CARDIOVASCULAR: Regular S1 and S2. Tachycardic. Pacemaker is in the right subclavian. ABDOMEN: Soft.PEG in place EXTREMITIES: Contracted. Oscar Corley MD Feb 12, 2020 17:02
--- NOTE | 2020-02-12 19:15 | Infectious Diseases Prog Note ---
Assessment/Plan Assessment/Plan A) 1) citrobacter bacteremia, likely source, CT noted, sepsis, leukocytosis 2) covid testing - negative 3) dm, hyperlipidemia, ? htn, hypothyroidism, cva, anemia, hemiplegia, ckd, gerd , copd, chf, ppm 4) allergies - nkda, fh-nc, sh-negative, mar noted, notes and records noted 5) d/w RN P) 1) ceftriaxone - day # 13/14 2) leukocytosis improved today 3) CT abdomen and pelvis - severe hydronephrosis and cystitis, no abscess 4) monitor labs, leukocytosis 5) c.diff. negative 6) urology f/u 7) will f/u Subjective Constitutional: Denies: fever HEENT: Denies: congestion Respiratory: Denies: shortness of breath Cardiovascular: Reports: other - no pressors Gastrointestinal/Abdominal: Denies: nausea, vomiting Genitourinary: Reports: other - + john Neurologic: Denies: headache Psychiatric: Denies: depression Skin: Denies: rash Hematologic: Denies: bleeding Musculoskeletal: Denies: pain Allergies: Coded Allergies: No Known Allergies (Unverified , 01/30/20) Objective Vital Signs Last 24 Hour Vital Signs Date Time Temp Pulse Resp B/P (MAP) Pulse Ox O2 Delivery O2 Flow Rate FiO2 02/12/20 16:00 97.8 86 18 137/69 (91) 95 02/12/20 15:35 102 02/12/20 12:00 98.2 82 18 141/69 (93) 96 02/12/20 11:42 92 02/12/20 09:00 62 125/70 02/12/20 09:00 Room Air 02/12/20 08:00 98.2 62 18 125/70 (88) 93 02/12/20 07:47 94 02/12/20 04:00 95 02/12/20 04:00 98.0 87 20 145/59 (87) 97 02/12/20 00:00 93 02/12/20 00:00 98.2 88 20 141/57 (85) 97 02/11/20 21:00 Room Air 02/11/20 20:00 94 02/11/20 20:00 99.0 84 20 148/84 (105) 96 Height (Feet): 5 Height (Inches): 2.00 Weight (Pounds): 123 General Appearance: no acute distress HEENT: normocephalic, atraumatic, anicteric, mucous membranes moist Respiratory/Chest: no respiratory distress, no accessory muscle use, crackles/ rales, rhonchi - bilaterally, rhonchi - left Cardiovascular: normal rate, regular rhythm, no gallop/murmur, no JVD Abdomen: normal bowel sounds, soft, non tender, no organomegaly, non distended Genitourinary: other - + john - urine slt cloudy Extremities: no cyanosis Skin: no rash Neurologic/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 The heart size is normal. There is a right chest biventricular pacemaker Impression: No acute process CT abdomen and pelvis: IMPRESSION: 1. Examination is limited by motion artifact. 2. Trace left pleural effusion. 3. Severe left hydronephrosis versus parapelvic cysts. No definite obstructing stone. 4. Mild bladder wall thickening with small gas foci in the bladder, concerning for cystitis. Please correlate with urinalysis. Microbiology Date/Time Source Procedure Growth Status 02/03/20 04:15 Blood Blood Culture - Final NO GROWTH AFTER 5 DAYS Complete 01/30/20 15:45 Nasal Nares MRSA Culture - Final NO METHICILLIN RESISTANT STAPH AUREUS... Complete 02/04/20 19:00 Stool Clostridium difficile Toxin Assay - Final Complete 02/11/20 14:30 Urine,Clean Catch Urine Culture - Preliminary Resulted 01/30/20 15:45 Rectum VRE Culture - Final NO VANCOMYCIN RESISTANT ENTEROCOCCUS ... Complete Microbiology Date/Time Source Procedure Growth Status 02/11/20 14:30 Urine,Clean Catch Urine Culture - Preliminary Resulted Laboratory Tests Test 02/12/20 05:48 White Blood Count 13.6 K/UL (4.8-10.8) H Red Blood Count 3.24 M/UL (4.20-5.40) L Hemoglobin 8.9 G/DL (12.0-16.0) L Hematocrit 27.0 % (37.0-47.0) L Mean Corpuscular Volume 83 FL (80-99) Mean Corpuscular Hemoglobin 27.5 PG (27.0-31.0) Mean Corpuscular Hemoglobin Concent 33.0 G/DL (32.0-36.0) Red Cell Distribution Width 14.5 % (11.6-14.8) Platelet Count 539 K/UL (150-450) H Mean Platelet Volume 5.9 FL (6.5-10.1) L Neutrophils (%) (Auto) 81.1 % (45.0-75.0) H Lymphocytes (%) (Auto) 10.2 % (20.0-45.0) L Monocytes (%) (Auto) 7.5 % (1.0-10.0) Eosinophils (%) (Auto) 0.5 % (0.0-3.0) Basophils (%) (Auto) 0.7 % (0.0-2.0) Sodium Level 151 MMOL/L (136-145) H Potassium Level 4.1 MMOL/L (3.5-5.1) Chloride Level 115 MMOL/L (98-107) H Carbon Dioxide Level 24 MMOL/L (21-32) Anion Gap 12 mmol/L (5-15) Blood Urea Nitrogen 26 mg/dL (7-18) H Creatinine 1.0 MG/DL (0.55-1.30) Estimat Glomerular Filtration Rate > 60 mL/min (>60) Glucose Level 133 MG/DL (74-106) H Calcium Level 8.4 MG/DL (8.5-10.1) L Total Bilirubin 0.1 MG/DL (0.2-1.0) L Aspartate Amino Transf (AST/SGOT) 51 U/L (15-37) H Alanine Aminotransferase (ALT/SGPT) 32 U/L (12-78) Alkaline Phosphatase 88 U/L (46-116) Total Protein 6.7 G/DL (6.4-8.2) Albumin 1.4 G/DL (3.4-5.0) L Globulin 5.3 g/dL Albumin/Globulin Ratio 0.3 (1.0-2.7) L Current Medications Medications (Trade) Dose Ordered Sig/Moreno Route PRN Reason Start Time Stop Time Status Last Admin Dose Admin Acetaminophen (Tylenol) 650 mg Q4H PRN GT Mild Pain/Temp > 100.5 02/09/20 14:30 03/08/20 10:29 02/10/20 22:07 Aspirin (ASA) 81 mg DAILY GT 02/11/20 09:00 03/27/20 08:59 02/12/20 09:23 Atorvastatin Calcium (Lipitor) 40 mg BEDTIME ORAL 02/09/20 21:00 04/29/20 20:59 02/11/20 22:18 Ceftriaxone Sodium 1 gm/ Dextrose 50 ml @ 100 mls/hr Q24H IVPB 02/10/20 21:00 02/12/20 20:59 02/10/20 22:06 Dextrose (Dextrose 50%) 25 ml Q30M PRN IV Hypoglycemia 02/09/20 14:30 04/29/20 18:59 Dextrose (Dextrose 50%) 50 ml Q30M PRN IV Hypoglycemia 02/09/20 14:30 04/29/20 18:59 Diphenhydramine HCl (Benadryl) 25 mg Q6H PRN ORAL Itching/Pruritis 02/09/20 15:00 03/10/20 14:59 Diphenoxylate HCl/ Atropine (Lomotil) 2.5 mg Q4H PRN GT Diarrhea 02/09/20 15:00 03/08/20 14:59 Levothyroxine Sodium (Synthroid) 25 mcg DAILY@0630 ORAL 02/10/20 06:30 03/01/20 06:29 02/12/20 06:19 Loperamide HCl (Imodium) 2 mg Q3H PRN NG Diarrhea 02/10/20 12:45 03/11/20 12:44 Metoprolol Succinate (Toprol XL) 25 mg DAILY ORAL 02/10/20 09:00 05/09/20 08:59 02/11/20 09:00 Ondansetron HCl (Zofran) 4 mg Q6H PRN IVP Nausea & Vomiting 02/09/20 15:00 02/29/20 14:59 Pantoprazole (Protonix) 40 mg EVERY 12 HOURS IVP 02/09/20 21:00 03/08/20 20:59 02/12/20 09:23 Abiodun Jacobo MD Feb 12, 2020 19:15
[2020-02-12 20:00] VITALS: BP 134/80
[2020-02-12] MEDS ORDERED: cefTRIAXone 1 GM in D5W 50 ML IVPB SCH (21:00)
--- NOTE | 2020-02-12 21:08 | Neurology Progress Note ---
Interim History Interim History ROS Limited/Unobtainable: Yes Interim History no fevers and wbc down Objective Physical Exam Last Vital Signs Date Time Temp Pulse Resp B/P (MAP) Pulse Ox O2 Delivery O2 Flow Rate FiO2 02/12/20 16:00 97.8 86 18 137/69 (91) 95 02/12/20 09:00 Room Air 02/09/20 04:00 2.0 02/07/20 19:19 28 Laboratory Tests Test 02/12/20 05:48 White Blood Count 13.6 K/UL (4.8-10.8) H Red Blood Count 3.24 M/UL (4.20-5.40) L Hemoglobin 8.9 G/DL (12.0-16.0) L Hematocrit 27.0 % (37.0-47.0) L Mean Corpuscular Volume 83 FL (80-99) Mean Corpuscular Hemoglobin 27.5 PG (27.0-31.0) Mean Corpuscular Hemoglobin Concent 33.0 G/DL (32.0-36.0) Red Cell Distribution Width 14.5 % (11.6-14.8) Platelet Count 539 K/UL (150-450) H Mean Platelet Volume 5.9 FL (6.5-10.1) L Neutrophils (%) (Auto) 81.1 % (45.0-75.0) H Lymphocytes (%) (Auto) 10.2 % (20.0-45.0) L Monocytes (%) (Auto) 7.5 % (1.0-10.0) Eosinophils (%) (Auto) 0.5 % (0.0-3.0) Basophils (%) (Auto) 0.7 % (0.0-2.0) Sodium Level 151 MMOL/L (136-145) H Potassium Level 4.1 MMOL/L (3.5-5.1) Chloride Level 115 MMOL/L (98-107) H Carbon Dioxide Level 24 MMOL/L (21-32) Anion Gap 12 mmol/L (5-15) Blood Urea Nitrogen 26 mg/dL (7-18) H Creatinine 1.0 MG/DL (0.55-1.30) Estimat Glomerular Filtration Rate > 60 mL/min (>60) Glucose Level 133 MG/DL (74-106) H Calcium Level 8.4 MG/DL (8.5-10.1) L Total Bilirubin 0.1 MG/DL (0.2-1.0) L Aspartate Amino Transf (AST/SGOT) 51 U/L (15-37) H Alanine Aminotransferase (ALT/SGPT) 32 U/L (12-78) Alkaline Phosphatase 88 U/L (46-116) Total Protein 6.7 G/DL (6.4-8.2) Albumin 1.4 G/DL (3.4-5.0) L Globulin 5.3 g/dL Albumin/Globulin Ratio 0.3 (1.0-2.7) L Head: normocophalic, atraumatic Neck: no rigidity EENT: benign Neurologic Exam Sensory: other - cc 35 min Objective lethargic, minimal withdraw in all 4 cc 35 min Impression/Recommendations Problems: (1) Septic shock (2) Anemia (3) Elevated troponin (4) Sepsis (5) Decubitus skin ulcer Status: stable Diagnostic Impression Acute encephalopathy in the context of sepsis Dementia, likely vascular Hx of strokes Monitor neuro exam Delirium precautions atb broad spectrum asa daily Luis Nash MD Feb 12, 2020 21:08
[2020-02-12] MEDS: Atorvastatin 20mg tab ORAL SCH (21:24)
[2020-02-13] VITALS: BP 132/62
[2020-02-13 04:00] VITALS: BP 144/96
[2020-02-13] MEDS: Levothyroxine 25mcg tab ORAL SCH (06:17)
[2020-02-13 06:53] LABS: HEMATOCRIT 29.6 % (37.0-47.0); HEMOGLOBIN 9.5 G/DL (12.0-16.0); MEAN CORPUSCULAR VOLUME 84 FL (80-99); PLATELET COUNT 572 K/UL (150-450); RED BLOOD COUNT 3.53 M/UL (4.20-5.40); RED CELL DISTRIBUTION WIDTH 14.3 % (11.6-14.8); WHITE BLOOD COUNT 18.3 K/UL (4.8-10.8)
--- NOTE | 2020-02-13 07:04 | General Progress Note ---
Assessment/Plan Problem List: (1) Diarrhea ICD Codes: R19.7 - Diarrhea, unspecified SNOMED: 50940964 (2) GI (gastrointestinal bleed) ICD Codes: K92.2 - Gastrointestinal hemorrhage, unspecified SNOMED: 19572274 (3) Elevated troponin ICD Codes: R79.89 - Other specified abnormal findings of blood chemistry; R65.21 - Severe sepsis with septic shock SNOMED: 923891643, 650721562, 101102070 (4) Anemia ICD Codes: D64.9 - Anemia, unspecified SNOMED: 839142809 (5) Septic shock ICD Codes: A41.9 - Sepsis, unspecified organism; R65.21 - Severe sepsis with septic shock SNOMED: 07545867 Status: stable Assessment/Plan: diarrhea is better with Lomotil and Imodium neg stool C.diff ppi TF , Glucerna 1.2 s/p blood transfusion last week COVID >>> neg given active GA and stable H&H will hold GI procedures for now repeat stool ob repeat CBC iron panel fu ID regarding ABX treatment of Pylo CT reviewed Subjective Allergies: Coded Allergies: No Known Allergies (Unverified , 01/30/20) Objective Last 24 Hour Vital Signs Date Time Temp Pulse Resp B/P (MAP) Pulse Ox O2 Delivery O2 Flow Rate FiO2 02/13/20 04:00 99.0 93 16 144/96 (112) 98 02/13/20 04:00 88 02/13/20 00:00 96 02/13/20 00:00 99.3 92 21 132/62 (85) 94 02/12/20 21:00 Room Air 02/12/20 20:00 98 02/12/20 20:00 99.3 105 20 134/80 (98) 95 02/12/20 16:00 97.8 86 18 137/69 (91) 95 02/12/20 15:35 102 02/12/20 12:00 98.2 82 18 141/69 (93) 96 02/12/20 11:42 92 02/12/20 09:00 62 125/70 02/12/20 09:00 Room Air 02/12/20 08:00 98.2 62 18 125/70 (88) 93 02/12/20 07:47 94 Intake and Output 02/12/20 02/13/20 19:00 07:00 Output Total 375 ml 500 ml Balance -375 ml -500 ml Output Urine Total 375 ml 500 ml # Bowel Movements 1 1 Laboratory Tests 02/13/20 05:59: White Blood Count 18.3H, Red Blood Count 3.53L, Hemoglobin 9.5L, Hematocrit 29.6L, Mean Corpuscular Volume 84, Mean Corpuscular Hemoglobin 27.1, Mean Corpuscular Hemoglobin Concent 32.2, Red Cell Distribution Width 14.3, Platelet Count 572H, Mean Platelet Volume 5.7L, Neutrophils (%) (Auto) , Lymphocytes (%) (Auto) , Monocytes (%) (Auto) , Eosinophils (%) (Auto) , Basophils (%) (Auto) , Neutrophils % (Manual) [Pending], Lymphocytes % (Manual) [Pending], Platelet Estimate [Pending], Platelet Morphology [Pending], Sodium Level [Pending], Potassium Level [Pending], Chloride Level [Pending], Carbon Dioxide Level [ Pending], Blood Urea Nitrogen [Pending], Creatinine [Pending], Estimat Glomerular Filtration Rate [Pending], Glucose Level [Pending], Calcium Level [ Pending] Height (Feet): 5 Height (Inches): 2.00 Weight (Pounds): 127 General Appearance: no apparent distress EENT: normal ENT inspection Neck: supple Cardiovascular: normal rate Respiratory/Chest: respiratory distress, decreased breath sounds Abdomen: normal bowel sounds, non tender, soft Extremities: non-tender Herminio Rodriguez MD Feb 13, 2020 07:04
[2020-02-13 07:17] LABS: ANION GAP 16 mmol/L (5-15); BLOOD UREA NITROGEN 24 mg/dL (7-18); CALCIUM 8.5 MG/DL (8.5-10.1); CARBON DIOXIDE 21 MMOL/L (21-32); CHLORIDE 110 MMOL/L (98-107); SODIUM 147 MMOL/L (136-145)
[2020-02-13 08:00] VITALS: BP 130/75
[2020-02-13] MEDS: Aspirin Baby 81mg GT SCH (09:15)
[2020-02-13] MEDS: Pantoprazole Inj IVP SCH ×2 (09:15→21:01)
--- NOTE | 2020-02-13 10:03 | Urology Progress Note ---
Assessment/Plan Status: stable Assessment/Plan: 1. Possible left-sided hydronephrosis versus parapelvic cyst. 2. Urinary retention. 3. Neurogenic bladder. 4. Proteinuria. 5. Hematuria. 6. Pyuria. 7. Sepsis history. 8. Cystitis. monitor clinically john indwelling hand irrigated and do PRN monitor renal fxn and WBC will proceed wwith CT A/P with IV contrast d/w Dr. Jojo lamb at some point on abx voiding trial later f/u on last cx's Subjective Allergies: Coded Allergies: No Known Allergies (Unverified , 01/30/20) Subjective all noted Objective Last 24 Hour Vital Signs Date Time Temp Pulse Resp B/P (MAP) Pulse Ox O2 Delivery O2 Flow Rate FiO2 02/13/20 09:15 82 130/75 02/13/20 08:00 97.9 82 22 130/75 (93) 95 02/13/20 07:28 90 02/13/20 04:00 99.0 93 16 144/96 (112) 98 02/13/20 04:00 88 02/13/20 00:00 96 02/13/20 00:00 99.3 92 21 132/62 (85) 94 02/12/20 21:00 Room Air 02/12/20 20:00 98 02/12/20 20:00 99.3 105 20 134/80 (98) 95 02/12/20 16:00 97.8 86 18 137/69 (91) 95 02/12/20 15:35 102 02/12/20 12:00 98.2 82 18 141/69 (93) 96 02/12/20 11:42 92 Intake and Output 02/12/20 02/13/20 19:00 07:00 Output Total 375 ml 500 ml Balance -375 ml -500 ml Output Urine Total 375 ml 500 ml # Bowel Movements 1 1 Microbiology Date/Time Source Procedure Growth Status 02/11/20 10:00 Blood Blood Culture - Preliminary NO GROWTH AFTER 24 HOURS Resulted 01/30/20 15:45 Nasal Nares MRSA Culture - Final NO METHICILLIN RESISTANT STAPH AUREUS... Complete 02/04/20 19:00 Stool Clostridium difficile Toxin Assay - Final Complete 02/11/20 14:30 Urine,Clean Catch Urine Culture - Preliminary Streptococcus Species Resulted 01/30/20 15:45 Rectum VRE Culture - Final NO VANCOMYCIN RESISTANT ENTEROCOCCUS ... Complete Current Medications Medications (Trade) Dose Ordered Sig/Moreno Route PRN Reason Start Time Stop Time Status Last Admin Dose Admin Acetaminophen (Tylenol) 650 mg Q4H PRN GT Mild Pain/Temp > 100.5 02/09/20 14:30 03/08/20 10:29 02/10/20 22:07 Aspirin (ASA) 81 mg DAILY GT 02/11/20 09:00 03/27/20 08:59 02/13/20 09:15 Atorvastatin Calcium (Lipitor) 40 mg BEDTIME ORAL 02/09/20 21:00 04/29/20 20:59 02/12/20 21:24 Ceftriaxone Sodium 1 gm/ Dextrose 50 ml @ 100 mls/hr Q24H IVPB 02/12/20 21:00 02/14/20 20:59 02/12/20 21:23 Dextrose (Dextrose 50%) 25 ml Q30M PRN IV Hypoglycemia 02/09/20 14:30 04/29/20 18:59 Dextrose (Dextrose 50%) 50 ml Q30M PRN IV Hypoglycemia 02/09/20 14:30 04/29/20 18:59 Diphenhydramine HCl (Benadryl) 25 mg Q6H PRN ORAL Itching/Pruritis 02/09/20 15:00 03/10/20 14:59 Diphenoxylate HCl/ Atropine (Lomotil) 2.5 mg Q4H PRN GT Diarrhea 02/09/20 15:00 03/08/20 14:59 Levothyroxine Sodium (Synthroid) 25 mcg DAILY@0630 ORAL 02/10/20 06:30 03/01/20 06:29 02/13/20 06:17 Loperamide HCl (Imodium) 2 mg Q3H PRN NG Diarrhea 02/10/20 12:45 03/11/20 12:44 Metoprolol Tartrate (Lopressor) 25 mg Q12HR GT 02/13/20 09:00 05/13/20 08:59 02/13/20 09:15 Ondansetron HCl (Zofran) 4 mg Q6H PRN IVP Nausea & Vomiting 02/09/20 15:00 02/29/20 14:59 Pantoprazole (Protonix) 40 mg EVERY 12 HOURS IVP 02/09/20 21:00 03/08/20 20:59 02/13/20 09:15 Laboratory Tests 02/13/20 05:59: White Blood Count 18.3H, Red Blood Count 3.53L, Hemoglobin 9.5L, Hematocrit 29.6L, Mean Corpuscular Volume 84, Mean Corpuscular Hemoglobin 27.1, Mean Corpuscular Hemoglobin Concent 32.2, Red Cell Distribution Width 14.3, Platelet Count 572H, Mean Platelet Volume 5.7L, Neutrophils (%) (Auto) , Lymphocytes (%) (Auto) , Monocytes (%) (Auto) , Eosinophils (%) (Auto) , Basophils (%) (Auto) , Differential Total Cells Counted 100, Neutrophils % (Manual) 92H, Lymphocytes % (Manual) 3L, Monocytes % (Manual) 3, Eosinophils % (Manual) 1, Basophils % ( Manual) 1, Band Neutrophils 0, Platelet Estimate Adequate, Platelet Morphology Normal, Hypochromasia 2+, Anisocytosis 1+, Sodium Level 147H, Potassium Level 4.0, Chloride Level 110H, Carbon Dioxide Level 21, Anion Gap 16H, Blood Urea Nitrogen 24H, Creatinine 1.0, Estimat Glomerular Filtration Rate > 60, Glucose Level 155H, Calcium Level 8.5 Height (Feet): 5 Height (Inches): 2.00 Weight (Pounds): 127 Objective exam stable renal u/s (02/11) noted Timothy Leos MD Feb 13, 2020 10:03
--- NOTE | 2020-02-13 10:53 | Surgery Progress Note ---
Surgery Progress Note Subjective Additional Comments covid neg exam stable comfortable no n/v/f/c labs noted Objective Last 24 Hour Vital Signs Date Time Temp Pulse Resp B/P (MAP) Pulse Ox O2 Delivery O2 Flow Rate FiO2 02/13/20 09:15 82 130/75 02/13/20 09:00 Room Air 02/13/20 08:00 97.9 82 22 130/75 (93) 95 02/13/20 07:28 90 02/13/20 04:00 99.0 93 16 144/96 (112) 98 02/13/20 04:00 88 02/13/20 00:00 96 02/13/20 00:00 99.3 92 21 132/62 (85) 94 02/12/20 21:00 Room Air 02/12/20 20:00 98 02/12/20 20:00 99.3 105 20 134/80 (98) 95 02/12/20 16:00 97.8 86 18 137/69 (91) 95 02/12/20 15:35 102 02/12/20 12:00 98.2 82 18 141/69 (93) 96 02/12/20 11:42 92 I&O Intake and Output 02/12/20 02/13/20 19:00 07:00 Output Total 375 ml 500 ml Balance -375 ml -500 ml Output Urine Total 375 ml 500 ml # Bowel Movements 1 1 Dressing: saturated Wound: clean Cardiovascular: RSR Respiratory: clear Abdomen: flat, non-tender, present bowel sounds Extremities: no cyanosis Laboratory Tests Test 02/13/20 05:59 02/13/20 10:30 White Blood Count 18.3 K/UL (4.8-10.8) H Red Blood Count 3.53 M/UL (4.20-5.40) L Hemoglobin 9.5 G/DL (12.0-16.0) L Hematocrit 29.6 % (37.0-47.0) L Mean Corpuscular Volume 84 FL (80-99) Mean Corpuscular Hemoglobin 27.1 PG (27.0-31.0) Mean Corpuscular Hemoglobin Concent 32.2 G/DL (32.0-36.0) Red Cell Distribution Width 14.3 % (11.6-14.8) Platelet Count 572 K/UL (150-450) H Mean Platelet Volume 5.7 FL (6.5-10.1) L Neutrophils (%) (Auto) % (45.0-75.0) Lymphocytes (%) (Auto) % (20.0-45.0) Monocytes (%) (Auto) % (1.0-10.0) Eosinophils (%) (Auto) % (0.0-3.0) Basophils (%) (Auto) % (0.0-2.0) Differential Total Cells Counted 100 Neutrophils % (Manual) 92 % (45-75) H Lymphocytes % (Manual) 3 % (20-45) L Monocytes % (Manual) 3 % (1-10) Eosinophils % (Manual) 1 % (0-3) Basophils % (Manual) 1 % (0-2) Band Neutrophils 0 % (0-8) Platelet Estimate Adequate Platelet Morphology Normal Hypochromasia 2+ Anisocytosis 1+ Sodium Level 147 MMOL/L (136-145) H Potassium Level 4.0 MMOL/L (3.5-5.1) Chloride Level 110 MMOL/L (98-107) H Carbon Dioxide Level 21 MMOL/L (21-32) Anion Gap 16 mmol/L (5-15) H Blood Urea Nitrogen 24 mg/dL (7-18) H Creatinine 1.0 MG/DL (0.55-1.30) Estimat Glomerular Filtration Rate > 60 mL/min (>60) Glucose Level 155 MG/DL (74-106) H Calcium Level 8.5 MG/DL (8.5-10.1) Troponin I Pending Plan Problems: (1) Septic shock Assessment & Plan: Patient presented to emergency department with sepsis hypotension tachycardia lactic acidosis leukocytosis. On IV antibiotics Labs improving IV hydration Continue tube feeds advance goal as tolerated Abdominal exam does elicit patient to retract a bit but she is not tender peritonitis or without rebound or significant guarding. exam improved Likely startle effect rather than intra-abdominal pathology will follow with serial exams continue with current care plan thank you for let me participate in patient's care leukocytosis. c diff negative. blood cultures noted abx as per ID Severe left hydronephrosis versus parapelvic cysts. No definite obstructing stone. Mild bladder wall thickening with small gas foci in the bladder, concerning for cystitis. Please correlate with urinalysis. Acute NSTEMI with peak troponin 31 as per cardiology wbc fever micro (2) Decubitus skin ulcer Assessment & Plan: 84-year-old female presented on admission with multiple decubitus skin ulcers and skin concerns. Patient identified to have a unstageable sacral lower back decubitus ulcer, periwound maceration, area of necrotic eschar soft, no drainage, no abscess, no foul odor Pt presented on admission with contractures, Multiple Pressure injuries.open DTPI sacrum.Wound is open at sacrococcygeal area(40%), with soft necrotic base ( L)5.5cm x (W)4.5cm. Surrounding base of wound is maroon and indurated. Total area of sacral DTPI measures(L) 12.5cm x (W)15cm. Non-blanching erythema periwound.In addition several small partial thickness wounds noted along Perineum.` Areas of hyperpigmentation noted to L and R trochanteric. Full thickness wound R knee.(L)1.1cm x (W)1.5cm.1 Base of wound 90% pink granulation,10% slough noted in center of wound. Borders are macerated.small amt serous exudate. No odor noted. No erythema or fluctuance noted periwound. Non-blanching erythema with fluctuance R heel. Unstageable pressure injury R hallux. Base of wound is 100% soft necrosis. Edges adherent and dry.No odor or exudate noted.Surrounding darker skin tone without erythema or fluctuance(L)2.6cm x (W)3cm. DTPI R Ankle(L)0.9cm x (W)1.6cm. Base of wound is fluctuant, maroon with marginal erythema. Periwound without erythema or fluctuance. Unstageable pressure injury distal/lateral R foot. Base of wound 100% soft necrosis with surrounding non-blanching erythema with fluctuance.(L)2cm x (W) 0.9cm. Stable dry eschar medial/lateral R foot (L)0.4cm x (W)0.8cm. Stable dry eschar lateral L heel.(L)1.9cm x (W)2.2cm. No erythema or fluctuance periwound. Unstable pressure injury medial/lateral L foot. Base of wound is 100% necrotic but dry.(L)0.7cm x (W)0.8cm. Unstageable pressure injury distal/lateral L foot. Base of wound is 100% necrotic but dry. (L)1.2cm x (W)1.6cm.non-blanching erythema without fluctuance periwound. Non-blanching erythema without fluctuance lateral L 5th metatarsal.(L)1.5cm x (W )0.5cm. Open DTPI L Hallux.Base of wound has mixed necrosis and slough with surrounding base of wound maroon with fluctuance. Non-blanching erythema without elevation in skin temp,or fluctuance periwound. Tx.plan: Cleanse Sacral wound with Saline. Apply TheraHoney. Apply Moisture Barrier Paste Periwound. Cover with Optifoam drsg. Change Daily and prn. Swab R nee with Betadine. Cover with Optifoam drsg every 3 days and prn. Swab wounds R foot with Betadine. Cover each wound with Optifoam drsg. Change every 3 days and prn. Swab wounds L foot with Betadine. Cover each wound with Optifoam drsg. Change every 3 days and prn. Reposition at least every 2hours or as tolerated. Place pillow between knees. Off-load heels with Pillow. APM/ARIEL Mattress. DAILY ESTIMATED NEEDS: Needs based on Wounds, underweight 50kg 30-35 kcals/kg 4887-3258 total kcals 1.25-2 g protein/kg 63-100 g total protein 25-30 mL/kg 7551-0819 total fluid mLs NUTRITION DIAGNOSIS: Increased kcal and pro needs r/t underweight status and wound healing as evidenced by pt @85% [place] Body Weight w/ multiple wounds, eval pending, pt is PEG dep. CURRENT TF:Glucerna 1.5 @60ml x20 hrs ENTERAL NUTRITION RECOMMENDATIONS: Maintain current TF as tolerated: Glucerna 1.5 @60ml/hr x20 hrs to provide 1200ml, 1800 kcal, 99g pro, 911ml free H2o -> Monitor for hypoglycemia and need to change to non carb control formula -> Flush per MD. HOB over 30 degrees ADDITIONAL RECOMMENDATIONS: 1) On iso, per SNF pt is: 65 inches + 110#/50kg 2) Wound care: add MATT in 4oz H2O BID via GT F/up w/ WC eval 3) Maintain calibrated bed scale wts 4) Monitor for continued hypoglycemic events, need for D5 or TF change Luther Mercedes Feb 13, 2020 10:53
--- NOTE | 2020-02-13 11:21 | General Progress Note ---
Assessment/Plan Status: stable Assessment/Plan: 84 year old woman with history of CVA, hemiplegia, DM, COPD, CKD, hyperlipidemia , hypothyroidism, GERD, unspecified CHF, S/p PPM brought in from SNF with hypotension, found to be septic with leukocytosis and minimal pyuria #Sepsis #Citrobacter bacteremia #Hypotension #Elevated lactate, improved #Leukocytosis - remains elevated #diarrhea - improved #Fever - resolved -continue inpatient level of care -cardiac monitoring -BCx 01/29 +citrobacter -repeat BC 02/02 negative -c diff negative -Cont.imodium PRN -cont to hold anti-hypertensives -COVID 19 negative -CT abd/pel reviewed -pt w/fever on 02/10, repeat BCx, UA, UCx, CXR -ID following: CTX -d/w son 02/10, stated patient has 1 functioning kidney, unsure which kidney -Renal US 02/11: Moderate to severe left hydronephrosis vs parapelvic cysts, atrophic right kidney -given worsening WBC, will obtain CT abd/pel w/IV contrast -suspect renal source -UCx prelim +strep, follow up with sensitivites -BCx 02/10: NGTD -d/w sonTerry, , POC, risks and benefits of IV contrast, which may lead to kidney damage/failure, explained will give IVF to help protect kidneys. Son expressed understanding and is agreeable to CT abd/pel w/contrast. Nurse, Mayuri, present. -case d/w Renal (Dr. Fuller)/Urology (Dr. Leos)- plan to hydrate pt w/NS 75 cc and mucomyst for 1-[address]d/pel w/contrast #Left Hydronephrosis #Cystitis #Possible UTI #one kidney -CT A/p showing possible hydro and cystitis -Renal US: Moderate to severe left hydronephrosis vs parapelvic cysts, atrophic right kidney -UA w/bacteria/yeast -UCx +strep -Urology Consulted, Dr. Leos, reccs appreciated -d/w nephro/urology -management as above #NSTEMI, likely type II MT #HTN #HLD #Elevated BNP #S/p PPM #Sinus tachycardia -cont Toprol -monitor closely for evidence of fluid overload -Echo 02/10: EF 40-45% -PPM interrogated, showed sinus tach -EP consulted: heparin ggt d/c, cont. 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 Additional 25 mins was spent on updating family POC, and counseling. Subjective Allergies: Coded Allergies: No Known Allergies (Unverified , 01/30/20) Subjective Follow up for NSTEMI, gram negative bacteremia, worsening leukocytosis. COVID 19 Negative. No acute events overnight. Patient aphasic/non-verbal at b/l. Called pt's son, Terry, updated on POC. Stated to son that CT abd held for concern of kidney function, however today pt w/worsening leukocytosis and will need to hydrate pt prior to CT abd w/IV. Explained to son that IV contrast can cause damage to kidneys, however CT is necessary r/o source of infection/ elevated WBCs. Son stated he agrees to obtaining scan, was confirmed by KELLIE Westfall. Objective Last 24 Hour Vital Signs Date Time Temp Pulse Resp B/P (MAP) Pulse Ox O2 Delivery O2 Flow Rate FiO2 02/13/20 09:15 82 130/75 02/13/20 09:00 Room Air 02/13/20 08:00 97.9 82 22 130/75 (93) 95 02/13/20 07:28 90 02/13/20 04:00 99.0 93 16 144/96 (112) 98 02/13/20 04:00 88 02/13/20 00:00 96 02/13/20 00:00 99.3 92 21 132/62 (85) 94 02/12/20 21:00 Room Air 02/12/20 20:00 98 02/12/20 20:00 99.3 105 20 134/80 (98) 95 02/12/20 16:00 97.8 86 18 137/69 (91) 95 02/12/20 15:35 102 02/12/20 12:00 98.2 82 18 141/69 (93) 96 02/12/20 11:42 92 Intake and Output 02/12/20 02/13/20 19:00 07:00 Output Total 375 ml 500 ml Balance -375 ml -500 ml Output Urine Total 375 ml 500 ml # Bowel Movements 1 1 Laboratory Tests 02/13/20 05:59: White Blood Count 18.3H, Red Blood Count 3.53L, Hemoglobin 9.5L, Hematocrit 29.6L, Mean Corpuscular Volume 84, Mean Corpuscular Hemoglobin 27.1, Mean Corpuscular Hemoglobin Concent 32.2, Red Cell Distribution Width 14.3, Platelet Count 572H, Mean Platelet Volume 5.7L, Neutrophils (%) (Auto) , Lymphocytes (%) (Auto) , Monocytes (%) (Auto) , Eosinophils (%) (Auto) , Basophils (%) (Auto) , Differential Total Cells Counted 100, Neutrophils % (Manual) 92H, Lymphocytes % (Manual) 3L, Monocytes % (Manual) 3, Eosinophils % (Manual) 1, Basophils % ( Manual) 1, Band Neutrophils 0, Platelet Estimate Adequate, Platelet Morphology Normal, Hypochromasia 2+, Anisocytosis 1+, Sodium Level 147H, Potassium Level 4.0, Chloride Level 110H, Carbon Dioxide Level 21, Anion Gap 16H, Blood Urea Nitrogen 24H, Creatinine 1.0, Estimat Glomerular Filtration Rate > 60, Glucose Level 155H, Calcium Level 8.5 02/13/20 10:30: Troponin I 8.192H Height (Feet): 5 Height (Inches): 2.00 Weight (Pounds): 127 Objective General Appearance: NAD, non-verbal, awake, alert, cachetic HEENT: NCAT, MMM, EOMi CV: RRR Respiratory: lungs clear, normal breath sounds, no respiratory distress Abdomen: non tender, soft, +PEG tube, c/d/i Ext: Contracted bilaterally, multiple abrasions wrapped in bandages C/D/I Lorna Uribe M.D. Feb 13, 2020 11:21
--- NOTE | 2020-02-13 11:42 | Cardiac Electrophysiology PN ---
Assessment/Plan Assessment/Plan 1. Status post right-sided [facility] DDD pacer implantation. Interrogation showed No Pacer Mediated tachycardia Just sinus tach likely due to acute UT with troponin 31. 2. Acute NSTEMI with peak troponin 31. Down to 8. Non verbal. Continue aspirin, Lopressor and Lipitor. Repeat Echo on 02/11/20 EF 40-45% 3. Diabetes. 4. Hypertension, on Toprol 25 daily. 5. Status post septic shock. WBC increased to 18K. On iv Abx 6. Severe anemia. Hemoglobin improved from 7.5 to 9.4. 7. Dementia. 8. CVA. 10. COPD. 11. ARF, Cr now normal 12. Dysphagia, status post PEG placement. DW RN Subjective Subjective Nonverbal.No further tachy after pacer reprogramming.Comfortable in NAD.Troponin level down to 8. Objective Last 24 Hour Vital Signs Date Time Temp Pulse Resp B/P (MAP) Pulse Ox O2 Delivery O2 Flow Rate FiO2 02/13/20 09:15 82 130/75 02/13/20 09:00 Room Air 02/13/20 08:00 97.9 82 22 130/75 (93) 95 02/13/20 07:28 90 02/13/20 04:00 99.0 93 16 144/96 (112) 98 02/13/20 04:00 88 02/13/20 00:00 96 02/13/20 00:00 99.3 92 21 132/62 (85) 94 02/12/20 21:00 Room Air 02/12/20 20:00 98 02/12/20 20:00 99.3 105 20 134/80 (98) 95 02/12/20 16:00 97.8 86 18 137/69 (91) 95 02/12/20 15:35 102 02/12/20 12:00 98.2 82 18 141/69 (93) 96 02/12/20 11:42 92 Intake and Output 02/12/20 02/13/20 19:00 07:00 Output Total 375 ml 500 ml Balance -375 ml -500 ml Output Urine Total 375 ml 500 ml # Bowel Movements 1 1 Laboratory Tests Test 02/13/20 05:59 02/13/20 10:30 White Blood Count 18.3 K/UL (4.8-10.8) H Red Blood Count 3.53 M/UL (4.20-5.40) L Hemoglobin 9.5 G/DL (12.0-16.0) L Hematocrit 29.6 % (37.0-47.0) L Mean Corpuscular Volume 84 FL (80-99) Mean Corpuscular Hemoglobin 27.1 PG (27.0-31.0) Mean Corpuscular Hemoglobin Concent 32.2 G/DL (32.0-36.0) Red Cell Distribution Width 14.3 % (11.6-14.8) Platelet Count 572 K/UL (150-450) H Mean Platelet Volume 5.7 FL (6.5-10.1) L Neutrophils (%) (Auto) % (45.0-75.0) Lymphocytes (%) (Auto) % (20.0-45.0) Monocytes (%) (Auto) % (1.0-10.0) Eosinophils (%) (Auto) % (0.0-3.0) Basophils (%) (Auto) % (0.0-2.0) Differential Total Cells Counted 100 Neutrophils % (Manual) 92 % (45-75) H Lymphocytes % (Manual) 3 % (20-45) L Monocytes % (Manual) 3 % (1-10) Eosinophils % (Manual) 1 % (0-3) Basophils % (Manual) 1 % (0-2) Band Neutrophils 0 % (0-8) Platelet Estimate Adequate Platelet Morphology Normal Hypochromasia 2+ Anisocytosis 1+ Sodium Level 147 MMOL/L (136-145) H Potassium Level 4.0 MMOL/L (3.5-5.1) Chloride Level 110 MMOL/L (98-107) H Carbon Dioxide Level 21 MMOL/L (21-32) Anion Gap 16 mmol/L (5-15) H Blood Urea Nitrogen 24 mg/dL (7-18) H Creatinine 1.0 MG/DL (0.55-1.30) Estimat Glomerular Filtration Rate > 60 mL/min (>60) Glucose Level 155 MG/DL (74-106) H Calcium Level 8.5 MG/DL (8.5-10.1) Troponin I 8.192 ng/mL (0.000-0.056) Microbiology Date/Time Source Procedure Growth Status 02/11/20 10:00 Blood Blood Culture - Preliminary NO GROWTH AFTER 24 HOURS Resulted 3/30/20 09:45 Blood Blood Culture - Preliminary NO GROWTH AFTER 24 HOURS Resulted 02/11/20 14:30 Urine,Clean Catch Urine Culture - Preliminary Streptococcus Species Resulted Objective HEAD AND NECK: Shows no JVD. LUNGS: Coarse rhonchi. CARDIOVASCULAR: Regular S1 and S2. Pacemaker is in the right subclavian. ABDOMEN: Soft.PEG in place EXTREMITIES: Contracted. Oscar Corley MD Feb 13, 2020 11:42
[2020-02-13 12:00] VITALS: BP 113/61
--- NOTE | 2020-02-13 12:46 | Nephrology Progress Note ---
Assessment/Plan Plan #hypernatremia due to free water deficit of close to 3L-improved #sepsis due to Citrobacter bacteremia #h/o CVA with hemiplegia #DM #COPD # hyperlipidemia #hypothyroidism # GERD # unspecified CHF, S/p PPM # possible hydronephrosis on CT hydrate today prior to CT Cr 1.0- stable - increase free water flushes to 250 q6hr - monitor bmp daily - continue abx - avoid nephrotoxins - strict I&Os - daily weights - monitor lytes - urology eval - consider CT with IV contrast - monitor Cr closely Subjective Subjective afebrile overnight WBC uptrending plan for CT abd/pelvis w con will hydrate today Renal US: Impression: Moderate to severe left hydronephrosis versus parapelvic cysts mimicking hydronephrosis, versus combination of both. This also described on recent CT scan Atrophic right kidney. Mild right renal collecting system fullness, significance/etiology uncertain Objective Objective Last 24 Hour Vital Signs Date Time Temp Pulse Resp B/P (MAP) Pulse Ox O2 Delivery O2 Flow Rate FiO2 02/13/20 12:00 98.6 109 22 113/61 (78) 94 02/13/20 09:15 82 130/75 02/13/20 09:00 Room Air 02/13/20 08:00 97.9 82 22 130/75 (93) 95 02/13/20 07:28 90 02/13/20 04:00 99.0 93 16 144/96 (112) 98 02/13/20 04:00 88 02/13/20 00:00 96 02/13/20 00:00 99.3 92 21 132/62 (85) 94 02/12/20 21:00 Room Air 02/12/20 20:00 98 02/12/20 20:00 99.3 105 20 134/80 (98) 95 02/12/20 16:00 97.8 86 18 137/69 (91) 95 02/12/20 15:35 102 Intake and Output 02/12/20 02/13/20 19:00 07:00 Output Total 375 ml 500 ml Balance -375 ml -500 ml Output Urine Total 375 ml 500 ml # Bowel Movements 1 1 Laboratory Tests 02/13/20 05:59: White Blood Count 18.3H, Red Blood Count 3.53L, Hemoglobin 9.5L, Hematocrit 29.6L, Mean Corpuscular Volume 84, Mean Corpuscular Hemoglobin 27.1, Mean Corpuscular Hemoglobin Concent 32.2, Red Cell Distribution Width 14.3, Platelet Count 572H, Mean Platelet Volume 5.7L, Neutrophils (%) (Auto) , Lymphocytes (%) (Auto) , Monocytes (%) (Auto) , Eosinophils (%) (Auto) , Basophils (%) (Auto) , Differential Total Cells Counted 100, Neutrophils % (Manual) 92H, Lymphocytes % (Manual) 3L, Monocytes % (Manual) 3, Eosinophils % (Manual) 1, Basophils % ( Manual) 1, Band Neutrophils 0, Platelet Estimate Adequate, Platelet Morphology Normal, Hypochromasia 2+, Anisocytosis 1+, Sodium Level 147H, Potassium Level 4.0, Chloride Level 110H, Carbon Dioxide Level 21, Anion Gap 16H, Blood Urea Nitrogen 24H, Creatinine 1.0, Estimat Glomerular Filtration Rate > 60, Glucose Level 155H, Calcium Level 8.5 02/13/20 10:30: Troponin I 8.192H Height (Feet): 5 Height (Inches): 2.00 Weight (Pounds): 127 Objective General Appearance: NAD, otherwise awake, alert, confused Neck: normal alignment, supple CV: RRR Respiratory: lungs clear, normal breath sounds, no respiratory distress Abdomen: non tender, soft, +PEG tube, c/d/i Ext: Contracted bilaterally, multiple abrasions wrapped in bandages C/D/I Cathy Fuller M.D. Feb 13, 2020 12:46
[2020-02-13] MEDS ORDERED: Varibar Pudding 230ml MC PRN (13:45)
[2020-02-13] MEDS ORDERED: Varibar Nectar 240ml MC PRN (13:45)
[2020-02-13] MEDS ORDERED: Varibar Honey 250ml MC PRN (13:45)
[2020-02-13 15:52] VITALS: BP 149/65
[2020-02-13] MEDS: Acetylcysteine 20% Soln 4ml ORAL SCH (17:30)
[2020-02-13 20:00] VITALS: BP 142/68
[2020-02-13] MEDS: Atorvastatin 20mg tab ORAL SCH (21:02)
[2020-02-13] MEDS ORDERED: cefTRIAXone 1 GM in D5W 55 ML IVPB SCH (21:15)
--- NOTE | 2020-02-13 22:26 | Neurology Progress Note ---
Interim History Interim History ROS Limited/Unobtainable: Yes Interim History remains lethargic, source of infection being worked up Objective Physical Exam Last Vital Signs Date Time Temp Pulse Resp B/P (MAP) Pulse Ox O2 Delivery O2 Flow Rate FiO2 02/13/20 21:02 110 142/68 02/13/20 20:00 98.6 18 97 02/13/20 09:00 Room Air 02/09/20 04:00 2.0 02/07/20 19:19 28 Laboratory Tests Test 02/13/20 05:59 02/13/20 10:30 White Blood Count 18.3 K/UL (4.8-10.8) H Red Blood Count 3.53 M/UL (4.20-5.40) L Hemoglobin 9.5 G/DL (12.0-16.0) L Hematocrit 29.6 % (37.0-47.0) L Mean Corpuscular Volume 84 FL (80-99) Mean Corpuscular Hemoglobin 27.1 PG (27.0-31.0) Mean Corpuscular Hemoglobin Concent 32.2 G/DL (32.0-36.0) Red Cell Distribution Width 14.3 % (11.6-14.8) Platelet Count 572 K/UL (150-450) H Mean Platelet Volume 5.7 FL (6.5-10.1) L Neutrophils (%) (Auto) % (45.0-75.0) Lymphocytes (%) (Auto) % (20.0-45.0) Monocytes (%) (Auto) % (1.0-10.0) Eosinophils (%) (Auto) % (0.0-3.0) Basophils (%) (Auto) % (0.0-2.0) Differential Total Cells Counted 100 Neutrophils % (Manual) 92 % (45-75) H Lymphocytes % (Manual) 3 % (20-45) L Monocytes % (Manual) 3 % (1-10) Eosinophils % (Manual) 1 % (0-3) Basophils % (Manual) 1 % (0-2) Band Neutrophils 0 % (0-8) Platelet Estimate Adequate Platelet Morphology Normal Hypochromasia 2+ Anisocytosis 1+ Sodium Level 147 MMOL/L (136-145) H Potassium Level 4.0 MMOL/L (3.5-5.1) Chloride Level 110 MMOL/L (98-107) H Carbon Dioxide Level 21 MMOL/L (21-32) Anion Gap 16 mmol/L (5-15) H Blood Urea Nitrogen 24 mg/dL (7-18) H Creatinine 1.0 MG/DL (0.55-1.30) Estimat Glomerular Filtration Rate > 60 mL/min (>60) Glucose Level 155 MG/DL (74-106) H Calcium Level 8.5 MG/DL (8.5-10.1) Troponin I 8.192 ng/mL (0.000-0.056) Head: normocophalic, atraumatic Neck: no rigidity EENT: benign Neurologic Exam Sensory: other - cc 35 min Objective lethargic, minimal withdraw in all 4 cc 35 min Impression/Recommendations Problems: (1) Septic shock (2) Anemia (3) Elevated troponin (4) Sepsis (5) Decubitus skin ulcer Status: stable Diagnostic Impression Acute encephalopathy in the context of sepsis Dementia, likely vascular Hx of strokes Monitor neuro exam Delirium precautions atb broad spectrum asa daily Luis Nash MD Feb 13, 2020 22:26
[2020-02-14] VITALS: BP 124/7
[2020-02-14 04:00] VITALS: BP 150/62
[2020-02-14] MEDS: Levothyroxine 25mcg tab ORAL SCH (06:29)
[2020-02-14 07:38] LABS: % IRON SATURATION 10 % (15-50); IRON 13 ug/dL (50-175); TOTAL IRON BINDING CAPACITY 127 ug/dL (250-450)
[2020-02-14 07:40] LABS: ALANINE AMINOTRANSFERASE 28 U/L (12-78); ALBUMIN 1.4 G/DL (3.4-5.0); ALBUMIN/GLOBULIN RATIO 0.3 (1.0-2.7); ALKALINE PHOSPHATASE 83 U/L (46-116); ANION GAP 10 mmol/L (5-15); ASPARTATE AMINO TRANSFERASE 39 U/L (15-37); BILIRUBIN,TOTAL 0.1 MG/DL (0.2-1.0); BLOOD UREA NITROGEN 24 mg/dL (7-18); CALCIUM 8.2 MG/DL (8.5-10.1); CARBON DIOXIDE 24 MMOL/L (21-32); CHLORIDE 108 MMOL/L (98-107); CREATININE 0.9 MG/DL (0.55-1.30); POTASSIUM 4.2 MMOL/L (3.5-5.1); SODIUM 142 MMOL/L (136-145)
[2020-02-14 07:47] LABS: HEMATOCRIT 26.8 % (37.0-47.0); HEMOGLOBIN 8.8 G/DL (12.0-16.0); MEAN CORPUSCULAR VOLUME 84 FL (80-99); PLATELET COUNT 503 K/UL (150-450); RED BLOOD COUNT 3.21 M/UL (4.20-5.40); RED CELL DISTRIBUTION WIDTH 14.1 % (11.6-14.8); WHITE BLOOD COUNT 20.3 K/UL (4.8-10.8)
[2020-02-14 08:00] VITALS: BP 126/61
[2020-02-14] MEDS: Acetylcysteine 20% Soln 4ml ORAL SCH ×2 (09:00→18:35)
--- NOTE | 2020-02-14 09:52 | General Progress Note ---
Assessment/Plan Status: stable Assessment/Plan: 84 year old woman with history of CVA, hemiplegia, DM, COPD, CKD, hyperlipidemia , hypothyroidism, GERD, unspecified CHF, S/p PPM brought in from SNF with hypotension, found to be septic with leukocytosis and minimal pyuria #Sepsis #Citrobacter bacteremia #Enterococcus UTI #Cystitis #Hypotension #Elevated lactate, improved #Leukocytosis - remains elevated #diarrhea - improved #Fever - resolved -continue inpatient level of care -cardiac monitoring -BCx 01/29 +citrobacter -repeat BC 02/02 negative -c diff negative -Cont.imodium PRN -cont to hold anti-hypertensives -COVID 19 negative -CT abd/pel reviewed -pt w/fever on 02/10, repeat BCx NGTD, UA + for UTI, UCx w/enterococcus -given worsening WBC, will obtain CT abd/pel w/IV contrast after hydration per nephro -d/w sonTerry, , on 02/12, POC, risks and benefits of IV contrast, which may lead to kidney damage/failure, explained will give IVF to help protect kidneys. Son expressed understanding and is agreeable to CT abd/pel w/ contrast. Nurse, Mayuri, present. -case d/w Renal (Dr. Fuller)/Urology (Dr. Leos) - fluids per Nephro, NS 75 cc and mucomyst for 1-[address]d/pel w/contrast -d/w ID, will give pt one time dose of zyvox #Left Hydronephrosis -CT A/p showing possible hydro and cystitis -Renal US: Moderate to severe left hydronephrosis vs parapelvic cysts, atrophic right kidney -UA w/bacteria/yeast -UCx + for enterococcus -Urology Consulted, Dr. Leos, reccs appreciated -d/w nephro/urology -management as above #NSTEMI, likely type II NM #HTN #HLD #Elevated BNP #S/p PPM, [facility] DDD #Sinus tachycardia -trop peak 31, down to 8 -cont Toprol -monitor closely for evidence of fluid overload -Echo 02/10: EF 40-45% -PPM interrogated, showed sinus tach -EP consulted: heparin ggt d/c, cont. 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 Subjective ROS Limited/Unobtainable: Yes - pt aphasic Allergies: Coded Allergies: No Known Allergies (Unverified , 01/30/20) Subjective Follow up for NSTEMI, gram negative bacteremia, worsening leukocytosis. COVID 19 Negative. No acute events overnight. WBC increased. UCx positive for Enterococcus. Patient aphasic/non-verbal at b/l. Objective Last 24 Hour Vital Signs Date Time Temp Pulse Resp B/P (MAP) Pulse Ox O2 Delivery O2 Flow Rate FiO2 02/14/20 08:00 98.5 104 20 126/61 (82) 97 02/14/20 04:00 93 02/14/20 04:00 99.7 107 18 150/62 (91) 95 02/14/20 00:00 101 02/14/20 00:00 99.3 111 20 124/7 (46) 95 02/13/20 21:02 110 142/68 02/13/20 21:00 Room Air 02/13/20 20:00 98.6 110 18 142/68 (92) 97 02/13/20 19:03 101 02/13/20 15:52 98.4 108 20 149/65 (93) 94 02/13/20 15:00 100 02/13/20 12:00 98.6 109 22 113/61 (78) 94 02/13/20 11:35 99 Intake and Output 02/13/20 02/14/20 19:00 07:00 Intake Total 795 ml 2000 ml Output Total 350 ml 500 ml Balance 445 ml 1500 ml Free Water 500 ml IV Total 75 ml 900 ml Tube Feeding 720 ml 600 ml Output Urine Total 350 ml 500 ml Stool Total 0 ml # Bowel Movements 1 1 Laboratory Tests 02/13/20 10:30: Troponin I 8.192H 02/14/20 06:06: White Blood Count 20.3H, Red Blood Count 3.21L, Hemoglobin 8.8L, Hematocrit 26.8L, Mean Corpuscular Volume 84, Mean Corpuscular Hemoglobin 27.6, Mean Corpuscular Hemoglobin Concent 33.0, Red Cell Distribution Width 14.1, Platelet Count 503H, Mean Platelet Volume 5.7L, Neutrophils (%) (Auto) , Lymphocytes (%) (Auto) , Monocytes (%) (Auto) , Eosinophils (%) (Auto) , Basophils (%) (Auto) , Neutrophils % (Manual) [Pending], Lymphocytes % (Manual) [Pending], Platelet Estimate [Pending], Platelet Morphology [Pending], Sodium Level 142, Potassium Level 4.2, Chloride Level 108H, Carbon Dioxide Level 24, Anion Gap 10, Blood Urea Nitrogen 24H, Creatinine 0.9, Estimat Glomerular Filtration Rate > 60, Glucose Level 128H, Calcium Level 8.2L, Iron Level 13L, Total Iron Binding Capacity 127L, Percent Iron Saturation 10L, Unsaturated Iron Binding 114, Total Bilirubin 0.1L, Aspartate Amino Transf (AST/SGOT) 39H, Alanine Aminotransferase (ALT/SGPT) 28, Alkaline Phosphatase 83, Total Protein 6.5, Albumin 1.4L, Globulin 5.1, Albumin/Globulin Ratio 0.3L Height (Feet): 5 Height (Inches): 2.00 Weight (Pounds): 127 Objective General Appearance: NAD, non-verbal, awake, alert, cachetic HEENT: NCAT, MMM, EOMi CV: RRR Respiratory: lungs clear, normal breath sounds, no respiratory distress Abdomen: non tender, soft, +PEG tube, c/d/i Ext: Contracted bilaterally, multiple abrasions wrapped in bandages C/D/I Lorna Uribe M.D. Feb 14, 2020 09:52
[2020-02-14] MEDS: Aspirin Baby 81mg GT SCH (10:08)
[2020-02-14] MEDS: Pantoprazole Inj IVP SCH ×2 (10:08→20:35)
--- NOTE | 2020-02-14 10:57 | Nephrology Progress Note ---
Assessment/Plan Plan #hypernatremia due to free water deficit of close to 3L-improved #sepsis due to Citrobacter bacteremia #h/o CVA with hemiplegia #DM #COPD # hyperlipidemia #hypothyroidism # GERD # unspecified CHF, S/p PPM # possible hydronephrosis on CT hydrate today prior to CT- OK to proceed today with CT abd/pelvis W IV contrast Continue mucomyst for one more day Cr 1.0- stable - increase free water flushes to 250 q6hr - monitor bmp daily - continue abx - avoid nephrotoxins - strict I&Os - daily weights - monitor lytes - urology eval - consider CT with IV contrast - monitor Cr closely Subjective Subjective afebrile overnight WBC uptrending plan for CT abd/pelvis w con- On hydration will hydrate today Renal US: Impression: Moderate to severe left hydronephrosis versus parapelvic cysts mimicking hydronephrosis, versus combination of both. This also described on recent CT scan Atrophic right kidney. Mild right renal collecting system fullness, significance/etiology uncertain Objective Objective Last 24 Hour Vital Signs Date Time Temp Pulse Resp B/P (MAP) Pulse Ox O2 Delivery O2 Flow Rate FiO2 02/14/20 10:08 104 126/61 02/14/20 08:00 98.5 104 20 126/61 (82) 97 02/14/20 04:00 93 02/14/20 04:00 99.7 107 18 150/62 (91) 95 02/14/20 00:00 101 02/14/20 00:00 99.3 111 20 124/7 (46) 95 02/13/20 21:02 110 142/68 02/13/20 21:00 Room Air 02/13/20 20:00 98.6 110 18 142/68 (92) 97 02/13/20 19:03 101 02/13/20 15:52 98.4 108 20 149/65 (93) 94 02/13/20 15:00 100 02/13/20 12:00 98.6 109 22 113/61 (78) 94 02/13/20 11:35 99 Intake and Output 02/13/20 02/14/20 19:00 07:00 Intake Total 795 ml 2000 ml Output Total 350 ml 500 ml Balance 445 ml 1500 ml Free Water 500 ml IV Total 75 ml 900 ml Tube Feeding 720 ml 600 ml Output Urine Total 350 ml 500 ml Stool Total 0 ml # Bowel Movements 1 1 Laboratory Tests 02/14/20 06:06: White Blood Count 20.3H, Red Blood Count 3.21L, Hemoglobin 8.8L, Hematocrit 26.8L, Mean Corpuscular Volume 84, Mean Corpuscular Hemoglobin 27.6, Mean Corpuscular Hemoglobin Concent 33.0, Red Cell Distribution Width 14.1, Platelet Count 503H, Mean Platelet Volume 5.7L, Neutrophils (%) (Auto) , Lymphocytes (%) (Auto) , Monocytes (%) (Auto) , Eosinophils (%) (Auto) , Basophils (%) (Auto) , Differential Total Cells Counted 100, Neutrophils % (Manual) 84H, Lymphocytes % (Manual) 9L, Monocytes % (Manual) 5, Eosinophils % (Manual) 1, Basophils % ( Manual) 1, Band Neutrophils 0, Platelet Estimate Adequate, Platelet Morphology Normal, Hypochromasia 2+, Anisocytosis 1+, Spherocytes 1+, Sodium Level 142, Potassium Level 4.2, Chloride Level 108H, Carbon Dioxide Level 24, Anion Gap 10 , Blood Urea Nitrogen 24H, Creatinine 0.9, Estimat Glomerular Filtration Rate > 60, Glucose Level 128H, Calcium Level 8.2L, Iron Level 13L, Total Iron Binding Capacity 127L, Percent Iron Saturation 10L, Unsaturated Iron Binding 114, Total Bilirubin 0.1L, Aspartate Amino Transf (AST/SGOT) 39H, Alanine Aminotransferase (ALT/SGPT) 28, Alkaline Phosphatase 83, Total Protein 6.5, Albumin 1.4L, Globulin 5.1, Albumin/Globulin Ratio 0.3L Height (Feet): 5 Height (Inches): 2.00 Weight (Pounds): 127 Objective General Appearance: NAD, otherwise awake, alert, confused Neck: normal alignment, supple CV: RRR Respiratory: lungs clear, normal breath sounds, no respiratory distress Abdomen: non tender, soft, +PEG tube, c/d/i Ext: Contracted bilaterally, multiple abrasions wrapped in bandages C/D/I Cathy Fuller M.D. Feb 14, 2020 10:57
--- NOTE | 2020-02-14 10:58 | Urology Progress Note ---
Assessment/Plan Status: stable Assessment/Plan: 1. Possible left-sided hydronephrosis versus parapelvic cyst. 2. Urinary retention. 3. Neurogenic bladder. 4. Proteinuria. 5. Hematuria. 6. Pyuria. 7. Sepsis history. 8. Cystitis. monitor clinically john indwelling hand irrigated and do PRN monitor renal fxn and WBC await CT A/P with IV contrast d/w Dr. Jojo lamb at some point on abx voiding trial later f/u on blood cx Subjective Allergies: Coded Allergies: No Known Allergies (Unverified , 01/30/20) Subjective all noted Objective Last 24 Hour Vital Signs Date Time Temp Pulse Resp B/P (MAP) Pulse Ox O2 Delivery O2 Flow Rate FiO2 02/14/20 10:08 104 126/61 02/14/20 08:00 98.5 104 20 126/61 (82) 97 02/14/20 04:00 93 02/14/20 04:00 99.7 107 18 150/62 (91) 95 02/14/20 00:00 101 02/14/20 00:00 99.3 111 20 124/7 (46) 95 02/13/20 21:02 110 142/68 02/13/20 21:00 Room Air 02/13/20 20:00 98.6 110 18 142/68 (92) 97 02/13/20 19:03 101 02/13/20 15:52 98.4 108 20 149/65 (93) 94 02/13/20 15:00 100 02/13/20 12:00 98.6 109 22 113/61 (78) 94 02/13/20 11:35 99 Intake and Output 02/13/20 02/14/20 19:00 07:00 Intake Total 795 ml 2000 ml Output Total 350 ml 500 ml Balance 445 ml 1500 ml Free Water 500 ml IV Total 75 ml 900 ml Tube Feeding 720 ml 600 ml Output Urine Total 350 ml 500 ml Stool Total 0 ml # Bowel Movements 1 1 Microbiology Date/Time Source Procedure Growth Status 02/11/20 10:00 Blood Blood Culture - Preliminary NO GROWTH AFTER 48 HOURS Resulted 01/30/20 15:45 Nasal Nares MRSA Culture - Final NO METHICILLIN RESISTANT STAPH AUREUS... Complete 02/04/20 19:00 Stool Clostridium difficile Toxin Assay - Final Complete 02/11/20 14:30 Urine,Clean Catch Urine Culture - Final Enterococcus Faecium - Vre Complete 01/30/20 15:45 Rectum VRE Culture - Final NO VANCOMYCIN RESISTANT ENTEROCOCCUS ... Complete Current Medications Medications (Trade) Dose Ordered Sig/Moreno Route PRN Reason Start Time Stop Time Status Last Admin Dose Admin Acetaminophen (Tylenol) 650 mg Q4H PRN GT Mild Pain/Temp > 100.5 02/09/20 14:30 03/08/20 10:29 02/10/20 22:07 Acetylcysteine (Mucomyst) 600 mg TWICE A DAY ORAL 02/13/20 18:00 02/15/20 18:00 02/13/20 17:30 Aspirin (ASA) 81 mg DAILY GT 02/11/20 09:00 03/27/20 08:59 02/14/20 10:08 Atorvastatin Calcium (Lipitor) 40 mg BEDTIME ORAL 02/09/20 21:00 04/29/20 20:59 02/13/20 21:02 Barium Sulfate (Varibar Honey) 250 ml NOW PRN MC RAD 02/13/20 13:45 02/16/20 13:34 Barium Sulfate (Varibar Hugo) 240 ml NOW PRN MC RAD 02/13/20 13:45 02/16/20 13:34 Barium Sulfate (Varibar Pudding) 230 ml NOW PRN MC RAD 02/13/20 13:45 02/16/20 13:34 Ceftriaxone Sodium 1 gm/ Dextrose 55 ml @ 110 mls/hr Q24H IVPB 02/13/20 21:15 02/14/20 20:59 02/13/20 21:06 Dextrose (Dextrose 50%) 25 ml Q30M PRN IV Hypoglycemia 02/09/20 14:30 04/29/20 18:59 Dextrose (Dextrose 50%) 50 ml Q30M PRN IV Hypoglycemia 02/09/20 14:30 04/29/20 18:59 Diphenhydramine HCl (Benadryl) 25 mg Q6H PRN ORAL Itching/Pruritis 02/09/20 15:00 03/10/20 14:59 Diphenoxylate HCl/ Atropine (Lomotil) 2.5 mg Q4H PRN GT Diarrhea 02/09/20 15:00 03/08/20 14:59 Levothyroxine Sodium (Synthroid) 25 mcg DAILY@0630 ORAL 02/10/20 06:30 03/01/20 06:29 02/14/20 06:29 Linezolid 300 ml @ 300 mls/hr ONCE ONCE IVPB 02/14/20 11:00 02/14/20 11:59 Loperamide HCl (Imodium) 2 mg Q3H PRN NG Diarrhea 02/10/20 12:45 03/11/20 12:44 Metoprolol Tartrate (Lopressor) 25 mg Q12HR GT 02/13/20 09:00 05/13/20 08:59 02/14/20 10:08 Ondansetron HCl (Zofran) 4 mg Q6H PRN IVP Nausea & Vomiting 02/09/20 15:00 02/29/20 14:59 Pantoprazole (Protonix) 40 mg EVERY 12 HOURS IVP 02/09/20 21:00 03/08/20 20:59 02/14/20 10:08 Sodium Chloride 1,000 ml @ 75 mls/hr [id number] IV 02/13/20 13:00 03/14/20 12:59 02/14/20 03:17 Laboratory Tests 02/14/20 06:06: White Blood Count 20.3H, Red Blood Count 3.21L, Hemoglobin 8.8L, Hematocrit 26.8L, Mean Corpuscular Volume 84, Mean Corpuscular Hemoglobin 27.6, Mean Corpuscular Hemoglobin Concent 33.0, Red Cell Distribution Width 14.1, Platelet Count 503H, Mean Platelet Volume 5.7L, Neutrophils (%) (Auto) , Lymphocytes (%) (Auto) , Monocytes (%) (Auto) , Eosinophils (%) (Auto) , Basophils (%) (Auto) , Differential Total Cells Counted 100, Neutrophils % (Manual) 84H, Lymphocytes % (Manual) 9L, Monocytes % (Manual) 5, Eosinophils % (Manual) 1, Basophils % ( Manual) 1, Band Neutrophils 0, Platelet Estimate Adequate, Platelet Morphology Normal, Hypochromasia 2+, Anisocytosis 1+, Spherocytes 1+, Sodium Level 142, Potassium Level 4.2, Chloride Level 108H, Carbon Dioxide Level 24, Anion Gap 10 , Blood Urea Nitrogen 24H, Creatinine 0.9, Estimat Glomerular Filtration Rate > 60, Glucose Level 128H, Calcium Level 8.2L, Iron Level 13L, Total Iron Binding Capacity 127L, Percent Iron Saturation 10L, Unsaturated Iron Binding 114, Total Bilirubin 0.1L, Aspartate Amino Transf (AST/SGOT) 39H, Alanine Aminotransferase (ALT/SGPT) 28, Alkaline Phosphatase 83, Total Protein 6.5, Albumin 1.4L, Globulin 5.1, Albumin/Globulin Ratio 0.3L Height (Feet): 5 Height (Inches): 2.00 Weight (Pounds): 127 Objective exam stable renal u/s (02/11) noted Timothy Leos MD Feb 14, 2020 10:58
--- NOTE | 2020-02-14 11:23 | General Progress Note ---
Assessment/Plan Problem List: (1) Diarrhea ICD Codes: R19.7 - Diarrhea, unspecified SNOMED: 49903632 (2) GI (gastrointestinal bleed) ICD Codes: K92.2 - Gastrointestinal hemorrhage, unspecified SNOMED: 77347841 (3) Elevated troponin ICD Codes: R79.89 - Other specified abnormal findings of blood chemistry; R65.21 - Severe sepsis with septic shock SNOMED: 792754120, 853193896, 620086818 (4) Anemia ICD Codes: D64.9 - Anemia, unspecified SNOMED: 160342430 (5) Septic shock ICD Codes: A41.9 - Sepsis, unspecified organism; R65.21 - Severe sepsis with septic shock SNOMED: 98427184 Status: stable Assessment/Plan: diarrhea is better with Lomotil and Imodium neg stool C.diff ppi TF , Glucerna 1.2 s/p blood transfusion last week COVID >>> neg given active AL and stable H&H will hold GI procedures for now repeat stool ob repeat CBC iron panel fu ID regarding ABX treatment of Pylo CT reviewed Subjective ROS Limited/Unobtainable: No Allergies: Coded Allergies: No Known Allergies (Unverified , 01/30/20) Objective Last 24 Hour Vital Signs Date Time Temp Pulse Resp B/P (MAP) Pulse Ox O2 Delivery O2 Flow Rate FiO2 02/14/20 10:08 104 126/61 02/14/20 08:00 98.5 104 20 126/61 (82) 97 02/14/20 04:00 93 02/14/20 04:00 99.7 107 18 150/62 (91) 95 02/14/20 00:00 101 02/14/20 00:00 99.3 111 20 124/7 (46) 95 02/13/20 21:02 110 142/68 02/13/20 21:00 Room Air 02/13/20 20:00 98.6 110 18 142/68 (92) 97 02/13/20 19:03 101 02/13/20 15:52 98.4 108 20 149/65 (93) 94 02/13/20 15:00 100 02/13/20 12:00 98.6 109 22 113/61 (78) 94 02/13/20 11:35 99 Intake and Output 02/13/20 02/14/20 19:00 07:00 Intake Total 795 ml 2000 ml Output Total 350 ml 500 ml Balance 445 ml 1500 ml Free Water 500 ml IV Total 75 ml 900 ml Tube Feeding 720 ml 600 ml Output Urine Total 350 ml 500 ml Stool Total 0 ml # Bowel Movements 1 1 Laboratory Tests 02/14/20 06:06: White Blood Count 20.3H, Red Blood Count 3.21L, Hemoglobin 8.8L, Hematocrit 26.8L, Mean Corpuscular Volume 84, Mean Corpuscular Hemoglobin 27.6, Mean Corpuscular Hemoglobin Concent 33.0, Red Cell Distribution Width 14.1, Platelet Count 503H, Mean Platelet Volume 5.7L, Neutrophils (%) (Auto) , Lymphocytes (%) (Auto) , Monocytes (%) (Auto) , Eosinophils (%) (Auto) , Basophils (%) (Auto) , Differential Total Cells Counted 100, Neutrophils % (Manual) 84H, Lymphocytes % (Manual) 9L, Monocytes % (Manual) 5, Eosinophils % (Manual) 1, Basophils % ( Manual) 1, Band Neutrophils 0, Platelet Estimate Adequate, Platelet Morphology Normal, Hypochromasia 2+, Anisocytosis 1+, Spherocytes 1+, Sodium Level 142, Potassium Level 4.2, Chloride Level 108H, Carbon Dioxide Level 24, Anion Gap 10 , Blood Urea Nitrogen 24H, Creatinine 0.9, Estimat Glomerular Filtration Rate > 60, Glucose Level 128H, Calcium Level 8.2L, Iron Level 13L, Total Iron Binding Capacity 127L, Percent Iron Saturation 10L, Unsaturated Iron Binding 114, Total Bilirubin 0.1L, Aspartate Amino Transf (AST/SGOT) 39H, Alanine Aminotransferase (ALT/SGPT) 28, Alkaline Phosphatase 83, Total Protein 6.5, Albumin 1.4L, Globulin 5.1, Albumin/Globulin Ratio 0.3L Height (Feet): 5 Height (Inches): 2.00 Weight (Pounds): 127 General Appearance: alert EENT: normal ENT inspection Neck: supple Cardiovascular: normal rate Respiratory/Chest: decreased breath sounds Abdomen: normal bowel sounds, non tender, soft Extremities: non-tender Herminio Rodriguez MD Feb 14, 2020 11:23
--- NOTE | 2020-02-14 11:31 | Cardiac Electrophysiology PN ---
Assessment/Plan Assessment/Plan 1. Status post right-sided [facility] DDD pacer implantation. Interrogation showed No Pacer Mediated tachycardia Just sinus tach likely due to acute AR with troponin 31. Continue Lopressor 2. Acute NSTEMI with peak troponin 31. Down to 8. Non verbal. Continue aspirin, Lopressor and Lipitor. Repeat Echo on 02/11/20 EF 40-45% 3. Diabetes. 4. Hypertension, on Toprol 25 daily. 5. Status post septic shock. WBC increased to 20 K. On iv Abx 6. Severe anemia. Hemoglobin improved from 7.5 to 9.4. 7. Dementia. 8. CVA. 10. COPD. 11. ARF, Cr now normal 12. Dysphagia, status post PEG placement. LAKIA RN and Dr Uribe Subjective Subjective Nonverbal but responsive. No further tachy after pacer reprogramming. Comfortable in NAD.Troponin level down to 8. Objective Last 24 Hour Vital Signs Date Time Temp Pulse Resp B/P (MAP) Pulse Ox O2 Delivery O2 Flow Rate FiO2 02/14/20 10:08 104 126/61 02/14/20 08:00 98.5 104 20 126/61 (82) 97 02/14/20 04:00 93 02/14/20 04:00 99.7 107 18 150/62 (91) 95 02/14/20 00:00 101 02/14/20 00:00 99.3 111 20 124/7 (46) 95 02/13/20 21:02 110 142/68 02/13/20 21:00 Room Air 02/13/20 20:00 98.6 110 18 142/68 (92) 97 02/13/20 19:03 101 02/13/20 15:52 98.4 108 20 149/65 (93) 94 02/13/20 15:00 100 02/13/20 12:00 98.6 109 22 113/61 (78) 94 02/13/20 11:35 99 Intake and Output 02/13/20 02/14/20 19:00 07:00 Intake Total 795 ml 2000 ml Output Total 350 ml 500 ml Balance 445 ml 1500 ml Free Water 500 ml IV Total 75 ml 900 ml Tube Feeding 720 ml 600 ml Output Urine Total 350 ml 500 ml Stool Total 0 ml # Bowel Movements 1 1 Laboratory Tests Test 02/14/20 06:06 White Blood Count 20.3 K/UL (4.8-10.8) H Red Blood Count 3.21 M/UL (4.20-5.40) L Hemoglobin 8.8 G/DL (12.0-16.0) L Hematocrit 26.8 % (37.0-47.0) L Mean Corpuscular Volume 84 FL (80-99) Mean Corpuscular Hemoglobin 27.6 PG (27.0-31.0) Mean Corpuscular Hemoglobin Concent 33.0 G/DL (32.0-36.0) Red Cell Distribution Width 14.1 % (11.6-14.8) Platelet Count 503 K/UL (150-450) H Mean Platelet Volume 5.7 FL (6.5-10.1) L Neutrophils (%) (Auto) % (45.0-75.0) Lymphocytes (%) (Auto) % (20.0-45.0) Monocytes (%) (Auto) % (1.0-10.0) Eosinophils (%) (Auto) % (0.0-3.0) Basophils (%) (Auto) % (0.0-2.0) Differential Total Cells Counted 100 Neutrophils % (Manual) 84 % (45-75) H Lymphocytes % (Manual) 9 % (20-45) L Monocytes % (Manual) 5 % (1-10) Eosinophils % (Manual) 1 % (0-3) Basophils % (Manual) 1 % (0-2) Band Neutrophils 0 % (0-8) Platelet Estimate Adequate Platelet Morphology Normal Hypochromasia 2+ Anisocytosis 1+ Spherocytes 1+ Sodium Level 142 MMOL/L (136-145) Potassium Level 4.2 MMOL/L (3.5-5.1) Chloride Level 108 MMOL/L (98-107) H Carbon Dioxide Level 24 MMOL/L (21-32) Anion Gap 10 mmol/L (5-15) Blood Urea Nitrogen 24 mg/dL (7-18) H Creatinine 0.9 MG/DL (0.55-1.30) Estimat Glomerular Filtration Rate > 60 mL/min (>60) Glucose Level 128 MG/DL (74-106) H Calcium Level 8.2 MG/DL (8.5-10.1) L Iron Level 13 ug/dL (50-175) L Total Iron Binding Capacity 127 ug/dL (250-450) L Percent Iron Saturation 10 % (15-50) L Unsaturated Iron Binding 114 ug/dL (112-346) Total Bilirubin 0.1 MG/DL (0.2-1.0) L Aspartate Amino Transf (AST/SGOT) 39 U/L (15-37) H Alanine Aminotransferase (ALT/SGPT) 28 U/L (12-78) Alkaline Phosphatase 83 U/L (46-116) Total Protein 6.5 G/DL (6.4-8.2) Albumin 1.4 G/DL (3.4-5.0) L Globulin 5.1 g/dL Albumin/Globulin Ratio 0.3 (1.0-2.7) L Microbiology Date/Time Source Procedure Growth Status 02/11/20 14:30 Urine,Clean Catch Urine Culture - Final Enterococcus Faecium - Vre Complete Objective HEAD AND NECK: Shows no JVD. LUNGS: Coarse rhonchi. CARDIOVASCULAR: Regular S1 and S2. Pacemaker is in the right subclavian. ABDOMEN: Soft.PEG in place EXTREMITIES: Contracted. Oscar Corley MD Feb 14, 2020 11:31
--- NOTE | 2020-02-14 14:18 | Surgery Progress Note ---
Surgery Progress Note Subjective Additional Comments worsening leukocytosis exam stable Objective Last 24 Hour Vital Signs Date Time Temp Pulse Resp B/P (MAP) Pulse Ox O2 Delivery O2 Flow Rate FiO2 02/14/20 11:40 100 02/14/20 10:08 104 126/61 02/14/20 08:00 98.5 104 20 126/61 (82) 97 02/14/20 07:40 93 02/14/20 04:00 93 02/14/20 04:00 99.7 107 18 150/62 (91) 95 02/14/20 00:00 101 02/14/20 00:00 99.3 111 20 124/7 (46) 95 02/13/20 21:02 110 142/68 02/13/20 21:00 Room Air 02/13/20 20:00 98.6 110 18 142/68 (92) 97 02/13/20 19:03 101 02/13/20 15:52 98.4 108 20 149/65 (93) 94 02/13/20 15:00 100 I&O Intake and Output 02/13/20 02/14/20 19:00 07:00 Intake Total 795 ml 2000 ml Output Total 350 ml 500 ml Balance 445 ml 1500 ml Free Water 500 ml IV Total 75 ml 900 ml Tube Feeding 720 ml 600 ml Output Urine Total 350 ml 500 ml Stool Total 0 ml # Bowel Movements 1 1 Dressing: saturated Wound: clean Cardiovascular: RSR Respiratory: clear Abdomen: soft, non-tender, present bowel sounds Extremities: no cyanosis Laboratory Tests Test 02/14/20 06:06 White Blood Count 20.3 K/UL (4.8-10.8) H Red Blood Count 3.21 M/UL (4.20-5.40) L Hemoglobin 8.8 G/DL (12.0-16.0) L Hematocrit 26.8 % (37.0-47.0) L Mean Corpuscular Volume 84 FL (80-99) Mean Corpuscular Hemoglobin 27.6 PG (27.0-31.0) Mean Corpuscular Hemoglobin Concent 33.0 G/DL (32.0-36.0) Red Cell Distribution Width 14.1 % (11.6-14.8) Platelet Count 503 K/UL (150-450) H Mean Platelet Volume 5.7 FL (6.5-10.1) L Neutrophils (%) (Auto) % (45.0-75.0) Lymphocytes (%) (Auto) % (20.0-45.0) Monocytes (%) (Auto) % (1.0-10.0) Eosinophils (%) (Auto) % (0.0-3.0) Basophils (%) (Auto) % (0.0-2.0) Differential Total Cells Counted 100 Neutrophils % (Manual) 84 % (45-75) H Lymphocytes % (Manual) 9 % (20-45) L Monocytes % (Manual) 5 % (1-10) Eosinophils % (Manual) 1 % (0-3) Basophils % (Manual) 1 % (0-2) Band Neutrophils 0 % (0-8) Platelet Estimate Adequate Platelet Morphology Normal Hypochromasia 2+ Anisocytosis 1+ Spherocytes 1+ Sodium Level 142 MMOL/L (136-145) Potassium Level 4.2 MMOL/L (3.5-5.1) Chloride Level 108 MMOL/L (98-107) H Carbon Dioxide Level 24 MMOL/L (21-32) Anion Gap 10 mmol/L (5-15) Blood Urea Nitrogen 24 mg/dL (7-18) H Creatinine 0.9 MG/DL (0.55-1.30) Estimat Glomerular Filtration Rate > 60 mL/min (>60) Glucose Level 128 MG/DL (74-106) H Calcium Level 8.2 MG/DL (8.5-10.1) L Iron Level 13 ug/dL (50-175) L Total Iron Binding Capacity 127 ug/dL (250-450) L Percent Iron Saturation 10 % (15-50) L Unsaturated Iron Binding 114 ug/dL (112-346) Total Bilirubin 0.1 MG/DL (0.2-1.0) L Aspartate Amino Transf (AST/SGOT) 39 U/L (15-37) H Alanine Aminotransferase (ALT/SGPT) 28 U/L (12-78) Alkaline Phosphatase 83 U/L (46-116) Total Protein 6.5 G/DL (6.4-8.2) Albumin 1.4 G/DL (3.4-5.0) L Globulin 5.1 g/dL Albumin/Globulin Ratio 0.3 (1.0-2.7) L Plan Problems: (1) Septic shock Assessment & Plan: Patient presented to emergency department with sepsis hypotension tachycardia lactic acidosis leukocytosis. On IV antibiotics Labs improving IV hydration Continue tube feeds advance goal as tolerated Abdominal exam does elicit patient to retract a bit but she is not tender peritonitis or without rebound or significant guarding. exam improved Likely startle effect rather than intra-abdominal pathology will follow with serial exams continue with current care plan thank you for let me participate in patient's care leukocytosis. c diff negative. blood cultures noted abx as per ID Severe left hydronephrosis versus parapelvic cysts. No definite obstructing stone. Mild bladder wall thickening with small gas foci in the bladder, concerning for cystitis. Please correlate with urinalysis. Acute NSTEMI with peak troponin 31 as per cardiology wbc fever micro worsening leukocytosis (2) Decubitus skin ulcer Assessment & Plan: 84-year-old female presented on admission with multiple decubitus skin ulcers and skin concerns. Patient identified to have a unstageable sacral lower back decubitus ulcer, periwound maceration, area of necrotic eschar soft, no drainage, no abscess, no foul odor Pt presented on admission with contractures, Multiple Pressure injuries.open DTPI sacrum.Wound is open at sacrococcygeal area(40%), with soft necrotic base ( L)5.5cm x (W)4.5cm. Surrounding base of wound is maroon and indurated. Total area of sacral DTPI measures(L) 12.5cm x (W)15cm. Non-blanching erythema periwound.In addition several small partial thickness wounds noted along Perineum.` Areas of hyperpigmentation noted to L and R trochanteric. Full thickness wound R knee.(L)1.1cm x (W)1.5cm.1 Base of wound 90% pink granulation,10% slough noted in center of wound. Borders are macerated.small amt serous exudate. No odor noted. No erythema or fluctuance noted periwound. Non-blanching erythema with fluctuance R heel. Unstageable pressure injury R hallux. Base of wound is 100% soft necrosis. Edges adherent and dry.No odor or exudate noted.Surrounding darker skin tone without erythema or fluctuance(L)2.6cm x (W)3cm. DTPI R Ankle(L)0.9cm x (W)1.6cm. Base of wound is fluctuant, maroon with marginal erythema. Periwound without erythema or fluctuance. Unstageable pressure injury distal/lateral R foot. Base of wound 100% soft necrosis with surrounding non-blanching erythema with fluctuance.(L)2cm x (W) 0.9cm. Stable dry eschar medial/lateral R foot (L)0.4cm x (W)0.8cm. Stable dry eschar lateral L heel.(L)1.9cm x (W)2.2cm. No erythema or fluctuance periwound. Unstable pressure injury medial/lateral L foot. Base of wound is 100% necrotic but dry.(L)0.7cm x (W)0.8cm. Unstageable pressure injury distal/lateral L foot. Base of wound is 100% necrotic but dry. (L)1.2cm x (W)1.6cm.non-blanching erythema without fluctuance periwound. Non-blanching erythema without fluctuance lateral L 5th metatarsal.(L)1.5cm x (W )0.5cm. Open DTPI L Hallux.Base of wound has mixed necrosis and slough with surrounding base of wound maroon with fluctuance. Non-blanching erythema without elevation in skin temp,or fluctuance periwound. Tx.plan: Cleanse Sacral wound with Saline. Apply TheraHoney. Apply Moisture Barrier Paste Periwound. Cover with Optifoam drsg. Change Daily and prn. Swab R nee with Betadine. Cover with Optifoam drsg every 3 days and prn. Swab wounds R foot with Betadine. Cover each wound with Optifoam drsg. Change every 3 days and prn. Swab wounds L foot with Betadine. Cover each wound with Optifoam drsg. Change every 3 days and prn. Reposition at least every 2hours or as tolerated. Place pillow between knees. Off-load heels with Pillow. APM/ARIEL Mattress. DAILY ESTIMATED NEEDS: Needs based on Wounds, underweight 50kg 30-35 kcals/kg 5200-8008 total kcals 1.25-2 g protein/kg 63-100 g total protein 25-30 mL/kg 4583-6125 total fluid mLs NUTRITION DIAGNOSIS: Increased kcal and pro needs r/t underweight status and wound healing as evidenced by pt @85% Amity Body Weight w/ multiple wounds, eval pending, pt is PEG dep. CURRENT TF:Glucerna 1.5 @60ml x20 hrs ENTERAL NUTRITION RECOMMENDATIONS: Maintain current TF as tolerated: Glucerna 1.5 @60ml/hr x20 hrs to provide 1200ml, 1800 kcal, 99g pro, 911ml free H2o -> Monitor for hypoglycemia and need to change to non carb control formula -> Flush per MD. HOB over 30 degrees ADDITIONAL RECOMMENDATIONS: 1) On iso, per SNF pt is: 65 inches + 110#/50kg 2) Wound care: add MATT in 4oz H2O BID via GT F/up w/ WC eval 3) Maintain calibrated bed scale wts 4) Monitor for continued hypoglycemic events, need for D5 or TF change Luther Mercedes Feb 14, 2020 14:18
[2020-02-14 16:00] VITALS: BP 117/69
[2020-02-14 18:00] VITALS: BP 117/69
[2020-02-14 20:00] VITALS: BP 115/60
--- NOTE | 2020-02-14 20:05 | Infectious Diseases Prog Note ---
Assessment/Plan Assessment/Plan A) 1) citrobacter bacteremia, likely source, CT noted, sepsis, leukocytosis worse, vre/enterococcus uti, fungemia risk 2) covid testing - negative 3) dm, hyperlipidemia, ? htn, hypothyroidism, cva, anemia, hemiplegia, ckd, gerd , copd, chf, ppm 4) allergies - nkda, fh-nc, sh-negative, mar noted, notes and records noted 5) d/w RN P) 1) change to zosyn and zyvox, diflucan 2) recheck cultures for worsening leukocytosis 3) CT abdomen and pelvis - severe hydronephrosis and cystitis, no abscess 4) monitor labs, leukocytosis 5) c.diff. negative 6) urology f/u 7) will f/u 8) d/w Dr. Uribe and pharmacy Subjective Constitutional: Denies: fever HEENT: Denies: congestion Respiratory: Reports: shortness of breath Cardiovascular: Denies: chest pain Gastrointestinal/Abdominal: Denies: nausea, vomiting Psychiatric: Reports: other - NA Skin: Denies: rash Hematologic: Denies: bleeding Allergies: Coded Allergies: No Known Allergies (Unverified , 01/30/20) Objective Vital Signs Last 24 Hour Vital Signs Date Time Temp Pulse Resp B/P (MAP) Pulse Ox O2 Delivery O2 Flow Rate FiO2 02/14/20 18:00 98.3 108 24 117/69 (85) 97 02/14/20 16:00 97.9 108 24 117/69 (85) 97 02/14/20 15:43 110 02/14/20 11:40 100 02/14/20 10:08 104 126/61 02/14/20 08:00 98.5 104 20 126/61 (82) 97 02/14/20 07:40 93 02/14/20 04:00 93 02/14/20 04:00 99.7 107 18 150/62 (91) 95 02/14/20 00:00 101 02/14/20 00:00 99.3 111 20 124/7 (46) 95 02/13/20 21:02 110 142/68 02/13/20 21:00 Room Air 02/13/20 20:00 98.6 110 18 142/68 (92) 97 Height (Feet): 5 Height (Inches): 2.00 Weight (Pounds): 127 General Appearance: no acute distress HEENT: normocephalic, atraumatic, anicteric Respiratory/Chest: lungs clear, normal breath sounds, no respiratory distress, rhonchi - bilaterally Cardiovascular: normal rate, regular rhythm Abdomen: normal bowel sounds, soft, non tender, no organomegaly, non distended Genitourinary: other - + john Extremities: no cyanosis Skin: no rash 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 The heart size is normal. There is a right chest biventricular pacemaker Impression: No acute process CT abdomen and pelvis: IMPRESSION: 1. Examination is limited by motion artifact. 2. Trace left pleural effusion. 3. Severe left hydronephrosis versus parapelvic cysts. No definite obstructing stone. 4. Mild bladder wall thickening with small gas foci in the bladder, concerning for cystitis. Please correlate with urinalysis. Microbiology Date/Time Source Procedure Growth Status 02/11/20 10:00 Blood Blood Culture - Preliminary NO GROWTH AFTER 48 HOURS Resulted 01/30/20 15:45 Nasal Nares MRSA Culture - Final NO METHICILLIN RESISTANT STAPH AUREUS... Complete 02/04/20 19:00 Stool Clostridium difficile Toxin Assay - Final Complete 02/11/20 14:30 Urine,Clean Catch Urine Culture - Final Enterococcus Faecium - Vre Complete 01/30/20 15:45 Rectum VRE Culture - Final NO VANCOMYCIN RESISTANT ENTEROCOCCUS ... Complete Laboratory Tests Test 02/14/20 06:06 White Blood Count 20.3 K/UL (4.8-10.8) H Red Blood Count 3.21 M/UL (4.20-5.40) L Hemoglobin 8.8 G/DL (12.0-16.0) L Hematocrit 26.8 % (37.0-47.0) L Mean Corpuscular Volume 84 FL (80-99) Mean Corpuscular Hemoglobin 27.6 PG (27.0-31.0) Mean Corpuscular Hemoglobin Concent 33.0 G/DL (32.0-36.0) Red Cell Distribution Width 14.1 % (11.6-14.8) Platelet Count 503 K/UL (150-450) H Mean Platelet Volume 5.7 FL (6.5-10.1) L Neutrophils (%) (Auto) % (45.0-75.0) Lymphocytes (%) (Auto) % (20.0-45.0) Monocytes (%) (Auto) % (1.0-10.0) Eosinophils (%) (Auto) % (0.0-3.0) Basophils (%) (Auto) % (0.0-2.0) Differential Total Cells Counted 100 Neutrophils % (Manual) 84 % (45-75) H Lymphocytes % (Manual) 9 % (20-45) L Monocytes % (Manual) 5 % (1-10) Eosinophils % (Manual) 1 % (0-3) Basophils % (Manual) 1 % (0-2) Band Neutrophils 0 % (0-8) Platelet Estimate Adequate Platelet Morphology Normal Hypochromasia 2+ Anisocytosis 1+ Spherocytes 1+ Sodium Level 142 MMOL/L (136-145) Potassium Level 4.2 MMOL/L (3.5-5.1) Chloride Level 108 MMOL/L (98-107) H Carbon Dioxide Level 24 MMOL/L (21-32) Anion Gap 10 mmol/L (5-15) Blood Urea Nitrogen 24 mg/dL (7-18) H Creatinine 0.9 MG/DL (0.55-1.30) Estimat Glomerular Filtration Rate > 60 mL/min (>60) Glucose Level 128 MG/DL (74-106) H Calcium Level 8.2 MG/DL (8.5-10.1) L Iron Level 13 ug/dL (50-175) L Total Iron Binding Capacity 127 ug/dL (250-450) L Percent Iron Saturation 10 % (15-50) L Unsaturated Iron Binding 114 ug/dL (112-346) Total Bilirubin 0.1 MG/DL (0.2-1.0) L Aspartate Amino Transf (AST/SGOT) 39 U/L (15-37) H Alanine Aminotransferase (ALT/SGPT) 28 U/L (12-78) Alkaline Phosphatase 83 U/L (46-116) Total Protein 6.5 G/DL (6.4-8.2) Albumin 1.4 G/DL (3.4-5.0) L Globulin 5.1 g/dL Albumin/Globulin Ratio 0.3 (1.0-2.7) L Current Medications Medications (Trade) Dose Ordered Sig/[place] Route PRN Reason Start Time Stop Time Status Last Admin Dose Admin Acetaminophen (Tylenol) 650 mg Q4H PRN GT Mild Pain/Temp > 100.5 02/09/20 14:30 03/08/20 10:29 02/10/20 22:07 Acetylcysteine (Mucomyst) 600 mg TWICE A DAY ORAL 02/14/20 18:15 02/15/20 18:01 02/14/20 18:35 Aspirin (ASA) 81 mg DAILY GT 02/11/20 09:00 03/27/20 08:59 02/14/20 10:08 Atorvastatin Calcium (Lipitor) 40 mg BEDTIME ORAL 02/09/20 21:00 04/29/20 20:59 02/13/20 21:02 Barium Sulfate (Varibar Honey) 250 ml NOW PRN MC RAD 02/13/20 13:45 02/16/20 13:34 Barium Sulfate (Varibar [place]) 240 ml NOW PRN MC RAD 02/13/20 13:45 02/16/20 13:34 Barium Sulfate (Varibar Pudding) 230 ml NOW PRN MC RAD 02/13/20 13:45 02/16/20 13:34 Dextrose (Dextrose 50%) 25 ml Q30M PRN IV Hypoglycemia 02/09/20 14:30 04/29/20 18:59 Dextrose (Dextrose 50%) 50 ml Q30M PRN IV Hypoglycemia 02/09/20 14:30 04/29/20 18:59 Diphenhydramine HCl (Benadryl) 25 mg Q6H PRN ORAL Itching/Pruritis 02/09/20 15:00 03/10/20 14:59 Diphenoxylate HCl/ Atropine (Lomotil) 2.5 mg Q4H PRN GT Diarrhea 02/09/20 15:00 03/08/20 14:59 Iron Sucrose 100 mg/Sodium Chloride 60 ml @ 240 mls/hr BEDTIME IV 02/14/20 21:00 02/18/20 21:14 Levothyroxine Sodium (Synthroid) 25 mcg DAILY@0630 ORAL 02/10/20 06:30 03/01/20 06:29 02/14/20 06:29 Linezolid 300 ml @ 300 mls/hr EVERY 12 HOURS IVPB 02/14/20 19:30 02/21/20 19:29 Loperamide HCl (Imodium) 2 mg Q3H PRN NG Diarrhea 02/10/20 12:45 03/11/20 12:44 Metoprolol Tartrate (Lopressor) 25 mg Q12HR GT 02/13/20 09:00 05/13/20 08:59 02/14/20 10:08 Ondansetron HCl (Zofran) 4 mg Q6H PRN IVP Nausea & Vomiting 02/09/20 15:00 02/29/20 14:59 Pantoprazole (Protonix) 40 mg EVERY 12 HOURS IVP 02/09/20 21:00 03/08/20 20:59 02/14/20 10:08 Sodium Chloride 1,000 ml @ 75 mls/hr [id number] IV 02/13/20 13:00 03/14/20 12:59 02/14/20 03:17 Abiodun Jacobo MD Feb 14, 2020 20:05
[2020-02-14] MEDS: Iron Sucrose 100 MG in NS 55 ML IV SCH (20:35)
[2020-02-14] MEDS: Atorvastatin 20mg tab ORAL SCH (20:36)
[2020-02-14] MEDS ORDERED: cefTRIAXone 2gm/D5W 110ml IVPB SCH ×2 (21:00)
[2020-02-14] MEDS ORDERED: Cefepime 2gm/D5W 110ml IV SCH ×2 (21:30)
--- NOTE | 2020-02-14 21:40 | Neurology Progress Note ---
Interim History Interim History ROS Limited/Unobtainable: Yes - pt aphasic Interim History somnolent non verbal Objective Physical Exam Last Vital Signs Date Time Temp Pulse Resp B/P (MAP) Pulse Ox O2 Delivery O2 Flow Rate FiO2 02/14/20 20:37 95 115/60 02/14/20 18:00 98.3 24 97 02/13/20 21:00 Room Air 02/09/20 04:00 2.0 02/07/20 19:19 28 Laboratory Tests Test 02/14/20 06:06 White Blood Count 20.3 K/UL (4.8-10.8) H Red Blood Count 3.21 M/UL (4.20-5.40) L Hemoglobin 8.8 G/DL (12.0-16.0) L Hematocrit 26.8 % (37.0-47.0) L Mean Corpuscular Volume 84 FL (80-99) Mean Corpuscular Hemoglobin 27.6 PG (27.0-31.0) Mean Corpuscular Hemoglobin Concent 33.0 G/DL (32.0-36.0) Red Cell Distribution Width 14.1 % (11.6-14.8) Platelet Count 503 K/UL (150-450) H Mean Platelet Volume 5.7 FL (6.5-10.1) L Neutrophils (%) (Auto) % (45.0-75.0) Lymphocytes (%) (Auto) % (20.0-45.0) Monocytes (%) (Auto) % (1.0-10.0) Eosinophils (%) (Auto) % (0.0-3.0) Basophils (%) (Auto) % (0.0-2.0) Differential Total Cells Counted 100 Neutrophils % (Manual) 84 % (45-75) H Lymphocytes % (Manual) 9 % (20-45) L Monocytes % (Manual) 5 % (1-10) Eosinophils % (Manual) 1 % (0-3) Basophils % (Manual) 1 % (0-2) Band Neutrophils 0 % (0-8) Platelet Estimate Adequate Platelet Morphology Normal Hypochromasia 2+ Anisocytosis 1+ Spherocytes 1+ Sodium Level 142 MMOL/L (136-145) Potassium Level 4.2 MMOL/L (3.5-5.1) Chloride Level 108 MMOL/L (98-107) H Carbon Dioxide Level 24 MMOL/L (21-32) Anion Gap 10 mmol/L (5-15) Blood Urea Nitrogen 24 mg/dL (7-18) H Creatinine 0.9 MG/DL (0.55-1.30) Estimat Glomerular Filtration Rate > 60 mL/min (>60) Glucose Level 128 MG/DL (74-106) H Calcium Level 8.2 MG/DL (8.5-10.1) L Iron Level 13 ug/dL (50-175) L Total Iron Binding Capacity 127 ug/dL (250-450) L Percent Iron Saturation 10 % (15-50) L Unsaturated Iron Binding 114 ug/dL (112-346) Total Bilirubin 0.1 MG/DL (0.2-1.0) L Aspartate Amino Transf (AST/SGOT) 39 U/L (15-37) H Alanine Aminotransferase (ALT/SGPT) 28 U/L (12-78) Alkaline Phosphatase 83 U/L (46-116) Total Protein 6.5 G/DL (6.4-8.2) Albumin 1.4 G/DL (3.4-5.0) L Globulin 5.1 g/dL Albumin/Globulin Ratio 0.3 (1.0-2.7) L Head: normocophalic, atraumatic Neck: no rigidity EENT: benign Neurologic Exam Sensory: other - cc 35 min Objective lethargic, minimal withdraw in all 4 cc 35 min Impression/Recommendations Problems: (1) Septic shock (2) Anemia (3) Elevated troponin (4) Sepsis (5) Decubitus skin ulcer Status: stable Diagnostic Impression Acute encephalopathy in the context of sepsis Dementia, likely vascular Hx of strokes Monitor neuro exam Delirium precautions atb broad spectrum asa daily Luis Nash MD Feb 14, 2020 21:40
[2020-02-14] MEDS: metroNIDAZOLE 500mg tab ORAL SCH (21:49)
[2020-02-15] VITALS: BP 131/72
[2020-02-15 02:12] LABS: APPEARANCE,URINE CLEAR; BILIRUBIN, URINE NEGATIVE (NEGATIVE); COLOR,URINE PALE YELLOW; GLUCOSE, URINE (UA) NEGATIVE (NEGATIVE); KETONES,URINE NEGATIVE (NEGATIVE); LEUKOCYTE ESTERASE ,URINE NEGATIVE (NEGATIVE); NITRITE,URINE NEGATIVE (NEGATIVE); PH,URINE 7 (4.5-8.0); PROTEIN,URINE 2+ (NEGATIVE); UROBILINOGEN,URINE NORMAL MG/DL (0.0-1.0)
[2020-02-15 04:00] VITALS: BP 143/72
[2020-02-15] MEDS: metroNIDAZOLE 500mg tab ORAL SCH (05:32)
[2020-02-15] MEDS: Levothyroxine 25mcg tab ORAL SCH (05:32)
[2020-02-15 07:38] LABS: HEMATOCRIT 25.8 % (37.0-47.0); HEMOGLOBIN 8.7 G/DL (12.0-16.0); MEAN CORPUSCULAR VOLUME 83 FL (80-99); PLATELET COUNT 455 K/UL (150-450)
[2020-02-15 07:55] LABS: WHITE BLOOD COUNT 27.4 K/UL (4.8-10.8)
[2020-02-15 07:56] LABS: ANION GAP 8 mmol/L (5-15); BLOOD UREA NITROGEN 20 mg/dL (7-18); CALCIUM 8.1 MG/DL (8.5-10.1); CARBON DIOXIDE 25 MMOL/L (21-32); CHLORIDE 100 MMOL/L (98-107); CREATININE 0.8 MG/DL (0.55-1.30); POTASSIUM 3.5 MMOL/L (3.5-5.1); SODIUM 133 MMOL/L (136-145)
[2020-02-15 08:00] VITALS: BP 125/66
--- NOTE | 2020-02-15 09:43 | General Progress Note ---
Assessment/Plan Status: stable Assessment/Plan: 84 year old woman with history of CVA, hemiplegia, DM, COPD, CKD, hyperlipidemia , hypothyroidism, GERD, unspecified CHF, S/p PPM brought in from SNF with hypotension, found to be septic with leukocytosis and minimal pyuria #Sepsis #Citrobacter bacteremia #Enterococcus UTI #Yeast UTI #Left Hydronephrosis #Leukocytosis - remains elevated #Hypotension - resolved #Elevated lactate - resolved #diarrhea - improved #Fever - resolved -continue inpatient level of care, cardiac monitoring -01/29 BCx +citrobacter -02/02 BCx negative -pt w/fever on 02/10: BCx NGTD, UA + for UTI, UCx + enterococcus -c diff negative -Cont.imodium, lomotil per ID -COVID 19 negative -CT A/p showing possible hydro and cystitis -Renal US: Moderate to severe left hydronephrosis vs parapelvic cysts, atrophic right kidney -d/w sonTerry, , on 02/12, POC, risks and benefits of IV contrast, which may lead to kidney damage/failure, explained will give IVF to help protect kidneys. Son expressed understanding and is agreeable to CT abd/pel w/ contrast. Nurse, Mayuri, present. -fluids per Nephro - NS and mucomyst -ID following: zyvox, cefepime, flagyl, fluconazole -plan for CT abd/pelvis today -repeat BCx/UCx given worsening leukocytosis #NSTEMI #HTN #HLD #Elevated BNP #S/p PPM, [facility] DDD #Sinus tachycardia -Echo 02/10: EF 40-45% -PPM interrogated: sinus tach -trop peak 31>> 8 >> 2.23 -monitor closely for evidence of fluid overload -cont Toprol -restart home amlodipine 10 mg -cont. medical management ASA, lipitor, lopressor -EP, Dr. Corley, following, recs appreciated #Hypernatremia - resolved #Hyponatremia #Unspecified CKD #One Kidney -Na 133 today, decrease FWF from 250 to 200 cc q6 hr -monitor renal function -Nephro following, appreciate recs #Thrombocytosis -likely 2/2 to infectious process -downtrending -cont. to monitor -Heme, Dr. 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 D/w Dr. Fuller. Subjective Allergies: Coded Allergies: No Known Allergies (Unverified , 01/30/20) Subjective Follow up for NSTEMI, gram negative bacteremia, worsening leukocytosis. WBC elevated today, Na 133. Unable to obtain ROS 2/2 clinical picture, pt aphasic, appears comfortable. Objective Last 24 Hour Vital Signs Date Time Temp Pulse Resp B/P (MAP) Pulse Ox O2 Delivery O2 Flow Rate FiO2 02/15/20 04:00 98.8 111 20 143/72 (95) 98 02/15/20 04:00 105 02/15/20 00:00 99.0 81 18 131/72 (91) 99 02/15/20 00:00 101 02/14/20 20:37 95 115/60 02/14/20 20:00 92 02/14/20 20:00 97.9 95 20 115/60 (78) 96 02/14/20 18:00 98.3 108 24 117/69 (85) 97 02/14/20 16:00 97.9 108 24 117/69 (85) 97 02/14/20 15:43 110 02/14/20 11:40 100 02/14/20 10:08 104 126/61 Intake and Output 02/14/20 02/15/20 19:00 07:00 Intake Total 985 ml 957.50 ml Balance 985 ml 957.50 ml Free Water 250 ml IV Total 75 ml 957.50 ml Tube Feeding 660 ml # Bowel Movements 1 2 Laboratory Tests 02/15/20 02:00: Urine Color Pale yellow, Urine Appearance Clear, Urine pH 7, Urine Specific [place] 1.005, Urine Protein 2+H, Urine Glucose (UA) Negative, Urine Ketones Negative, Urine Blood 1+H, Urine Nitrite Negative, Urine Bilirubin Negative, Urine Urobilinogen Normal, Urine Leukocyte Esterase Negative, Urine RBC 0-2, Urine WBC 0, Urine Squamous Epithelial Cells Few, Urine Bacteria None 02/15/20 06:22: Troponin I [Pending] 02/15/20 06:27: White Blood Count 27.4*H, Red Blood Count 3.10L, Hemoglobin 8.7L, Hematocrit 25.8L, Mean Corpuscular Volume 83, Mean Corpuscular Hemoglobin 28.2, Mean Corpuscular Hemoglobin Concent 33.9, Red Cell Distribution Width 14.0, Platelet Count 455H, Mean Platelet Volume 5.8L, Neutrophils (%) (Auto) , Lymphocytes (%) (Auto) , Monocytes (%) (Auto) , Eosinophils (%) (Auto) , Basophils (%) (Auto) , Differential Total Cells Counted 100, Neutrophils % (Manual) 95H, Lymphocytes % (Manual) 1L, Monocytes % (Manual) 4, Eosinophils % (Manual) 0, Basophils % ( Manual) 0, Band Neutrophils 0, Platelet Estimate IncreasedH, Platelet Morphology Normal, Sodium Level 133L, Potassium Level 3.5, Chloride Level 100, Carbon Dioxide Level 25, Anion Gap 8, Blood Urea Nitrogen 20H, Creatinine 0.8, Estimat Glomerular Filtration Rate > 60, Glucose Level 138H, Calcium Level 8.1L Height (Feet): 5 Height (Inches): 2.00 Weight (Pounds): 127 Objective General Appearance: NAD, non-verbal, awake, alert, cachetic, appears comfortable in bed HEENT: NCAT, MMM, EOMi CV: RRR Respiratory: lungs clear, normal breath sounds, no respiratory distress Abdomen: non tender, soft, +PEG tube, c/d/i Ext: Contracted bilaterally, multiple abrasions wrapped in bandages C/D/I Lorna Uribe M.D. Feb 15, 2020 09:42
[2020-02-15] MEDS ORDERED: Omnipaque-300 100ml vial INJ PRN (09:45)
[2020-02-15] MEDS: Acetylcysteine 20% Soln 4ml ORAL SCH ×2 (09:50→18:15)
[2020-02-15] MEDS: Pantoprazole Inj IVP SCH ×2 (09:50→20:48)
[2020-02-15] MEDS: Aspirin Baby 81mg GT SCH (09:53)
--- NOTE | 2020-02-15 10:06 | Nephrology Progress Note ---
Assessment/Plan Plan #hypernatremia due to free water deficit of close to 3L-improved #sepsis due to Citrobacter bacteremia #h/o CVA with hemiplegia #DM #COPD # hyperlipidemia #hypothyroidism # GERD # unspecified CHF, S/p PPM # possible hydronephrosis on CT -> CT- OK to proceed today with CT abd/pelvis W IV contrast Continue mucomyst for one more day switch to NS at 75cc/hr - decrease free water flushes to 200 q6hr - monitor bmp daily - continue abx - avoid nephrotoxins - strict I&Os - daily weights - monitor lytes - urology eval - consider CT with IV contrast - monitor Cr closely Subjective Subjective WBC uptrending plan for CT abd/pelvis w con today sodium 133 Renal US: Impression: Moderate to severe left hydronephrosis versus parapelvic cysts mimicking hydronephrosis, versus combination of both. This also described on recent CT scan Atrophic right kidney. Mild right renal collecting system fullness, significance/etiology uncertain Objective Objective Last 24 Hour Vital Signs Date Time Temp Pulse Resp B/P (MAP) Pulse Ox O2 Delivery O2 Flow Rate FiO2 02/15/20 09:53 108 125/66 02/15/20 04:00 98.8 111 20 143/72 (95) 98 02/15/20 04:00 105 02/15/20 00:00 99.0 81 18 131/72 (91) 99 02/15/20 00:00 101 02/14/20 20:37 95 115/60 02/14/20 20:00 92 02/14/20 20:00 97.9 95 20 115/60 (78) 96 02/14/20 18:00 98.3 108 24 117/69 (85) 97 02/14/20 16:00 97.9 108 24 117/69 (85) 97 02/14/20 15:43 110 02/14/20 11:40 100 02/14/20 10:08 104 126/61 Intake and Output 02/14/20 02/15/20 19:00 07:00 Intake Total 985 ml 957.50 ml Balance 985 ml 957.50 ml Free Water 250 ml IV Total 75 ml 957.50 ml Tube Feeding 660 ml # Bowel Movements 1 2 Laboratory Tests 02/15/20 02:00: Urine Color Pale yellow, Urine Appearance Clear, Urine pH 7, Urine Specific [place] 1.005, Urine Protein 2+H, Urine Glucose (UA) Negative, Urine Ketones Negative, Urine Blood 1+H, Urine Nitrite Negative, Urine Bilirubin Negative, Urine Urobilinogen Normal, Urine Leukocyte Esterase Negative, Urine RBC 0-2, Urine WBC 0, Urine Squamous Epithelial Cells Few, Urine Bacteria None 02/15/20 06:22: Troponin I 2.269H 02/15/20 06:27: White Blood Count 27.4*H, Red Blood Count 3.10L, Hemoglobin 8.7L, Hematocrit 25.8L, Mean Corpuscular Volume 83, Mean Corpuscular Hemoglobin 28.2, Mean Corpuscular Hemoglobin Concent 33.9, Red Cell Distribution Width 14.0, Platelet Count 455H, Mean Platelet Volume 5.8L, Neutrophils (%) (Auto) , Lymphocytes (%) (Auto) , Monocytes (%) (Auto) , Eosinophils (%) (Auto) , Basophils (%) (Auto) , Differential Total Cells Counted 100, Neutrophils % (Manual) 95H, Lymphocytes % (Manual) 1L, Monocytes % (Manual) 4, Eosinophils % (Manual) 0, Basophils % ( Manual) 0, Band Neutrophils 0, Platelet Estimate IncreasedH, Platelet Morphology Normal, Sodium Level 133L, Potassium Level 3.5, Chloride Level 100, Carbon Dioxide Level 25, Anion Gap 8, Blood Urea Nitrogen 20H, Creatinine 0.8, Estimat Glomerular Filtration Rate > 60, Glucose Level 138H, Calcium Level 8.1L Height (Feet): 5 Height (Inches): 2.00 Weight (Pounds): 127 Objective General Appearance: NAD, otherwise awake, alert, confused Neck: normal alignment, supple CV: RRR Respiratory: lungs clear, normal breath sounds, no respiratory distress Abdomen: non tender, soft, +PEG tube, c/d/i Ext: Contracted bilaterally, multiple abrasions wrapped in bandages C/D/I Cathy Fuller M.D. Feb 15, 2020 10:06
--- NOTE | 2020-02-15 10:14 | General Progress Note ---
Assessment/Plan Problem List: (1) Diarrhea ICD Codes: R19.7 - Diarrhea, unspecified SNOMED: 69026217 (2) GI (gastrointestinal bleed) ICD Codes: K92.2 - Gastrointestinal hemorrhage, unspecified SNOMED: 80339497 (3) Elevated troponin ICD Codes: R79.89 - Other specified abnormal findings of blood chemistry; R65.21 - Severe sepsis with septic shock SNOMED: 930601326, 071392561, 791328685 (4) Anemia ICD Codes: D64.9 - Anemia, unspecified SNOMED: 263759597 (5) Septic shock ICD Codes: A41.9 - Sepsis, unspecified organism; R65.21 - Severe sepsis with septic shock SNOMED: 68768638 Status: stable Assessment/Plan: diarrhea is better with Lomotil and Imodium neg stool C.diff ppi TF , Glucerna 1.2 s/p blood transfusion last week COVID >>> neg given active [facility] and stable H&H will hold GI procedures for now repeat stool ob repeat CBC fu ID regarding ABX treatment of [place] fu repeat CT Subjective ROS Limited/Unobtainable: No Allergies: Coded Allergies: No Known Allergies (Unverified , 01/30/20) Objective Last 24 Hour Vital Signs Date Time Temp Pulse Resp B/P (MAP) Pulse Ox O2 Delivery O2 Flow Rate FiO2 02/15/20 09:53 108 125/66 02/15/20 04:00 98.8 111 20 143/72 (95) 98 02/15/20 04:00 105 02/15/20 00:00 99.0 81 18 131/72 (91) 99 02/15/20 00:00 101 02/14/20 20:37 95 115/60 02/14/20 20:00 92 02/14/20 20:00 97.9 95 20 115/60 (78) 96 02/14/20 18:00 98.3 108 24 117/69 (85) 97 02/14/20 16:00 97.9 108 24 117/69 (85) 97 02/14/20 15:43 110 02/14/20 11:40 100 Intake and Output 02/14/20 02/15/20 19:00 07:00 Intake Total 985 ml 957.50 ml Balance 985 ml 957.50 ml Free Water 250 ml IV Total 75 ml 957.50 ml Tube Feeding 660 ml # Bowel Movements 1 2 Laboratory Tests 02/15/20 02:00: Urine Color Pale yellow, Urine Appearance Clear, Urine pH 7, Urine Specific [place] 1.005, Urine Protein 2+H, Urine Glucose (UA) Negative, Urine Ketones Negative, Urine Blood 1+H, Urine Nitrite Negative, Urine Bilirubin Negative, Urine Urobilinogen Normal, Urine Leukocyte Esterase Negative, Urine RBC 0-2, Urine WBC 0, Urine Squamous Epithelial Cells Few, Urine Bacteria None 02/15/20 06:22: Troponin I 2.269H 02/15/20 06:27: White Blood Count 27.4*H, Red Blood Count 3.10L, Hemoglobin 8.7L, Hematocrit 25.8L, Mean Corpuscular Volume 83, Mean Corpuscular Hemoglobin 28.2, Mean Corpuscular Hemoglobin Concent 33.9, Red Cell Distribution Width 14.0, Platelet Count 455H, Mean Platelet Volume 5.8L, Neutrophils (%) (Auto) , Lymphocytes (%) (Auto) , Monocytes (%) (Auto) , Eosinophils (%) (Auto) , Basophils (%) (Auto) , Differential Total Cells Counted 100, Neutrophils % (Manual) 95H, Lymphocytes % (Manual) 1L, Monocytes % (Manual) 4, Eosinophils % (Manual) 0, Basophils % ( Manual) 0, Band Neutrophils 0, Platelet Estimate IncreasedH, Platelet Morphology Normal, Sodium Level 133L, Potassium Level 3.5, Chloride Level 100, Carbon Dioxide Level 25, Anion Gap 8, Blood Urea Nitrogen 20H, Creatinine 0.8, Estimat Glomerular Filtration Rate > 60, Glucose Level 138H, Calcium Level 8.1L Height (Feet): 5 Height (Inches): 2.00 Weight (Pounds): 127 General Appearance: lethargic EENT: normal ENT inspection Neck: supple Cardiovascular: normal rate Respiratory/Chest: decreased breath sounds Abdomen: normal bowel sounds, non tender, soft Extremities: non-tender Herminio Rodriguez MD Feb 15, 2020 10:14
--- NOTE | 2020-02-15 11:31 | Cardiology Progress Note ---
Assessment/Plan Status: stable Assessment/Plan Assessment/Plan Assessment/Plan: CVA Non verbal DM COPD CKD CHF GERD Pacemaker Hypotension Sepsis -Troponin down trending -Monitor for arrhythmias -No indication for cath at this time. -Continue IV fluids -Continue aspirin/statin/metoprolol -PPM with normal function Subjective Cardiovascular: Reports: no symptoms Respiratory: Reports: no symptoms Gastrointestinal/Abdominal: Reports: no symptoms Genitourinary: Reports: no symptoms Subjective No acute events, Patient AAOx1 no distress tolerating tube feeds, WBC has come down, troponin down trending, tachycardic remains albeit mild, No shortness of breath or distress Objective Last 24 Hour Vital Signs Date Time Temp Pulse Resp B/P (MAP) Pulse Ox O2 Delivery O2 Flow Rate FiO2 02/15/20 09:53 108 125/66 02/15/20 08:00 98.3 108 20 125/66 (85) 99 02/15/20 08:00 108 02/15/20 04:00 98.8 111 20 143/72 (95) 98 02/15/20 04:00 105 02/15/20 00:00 99.0 81 18 131/72 (91) 99 02/15/20 00:00 101 02/14/20 20:37 95 115/60 02/14/20 20:00 92 02/14/20 20:00 97.9 95 20 115/60 (78) 96 02/14/20 18:00 98.3 108 24 117/69 (85) 97 02/14/20 16:00 97.9 108 24 117/69 (85) 97 02/14/20 15:43 110 02/14/20 11:40 100 General Appearance: no apparent distress, lethargic EENT: PERRL/EOMI, normal ENT inspection, TMs normal, pharynx normal Neck: non-tender, normal alignment, supple, normal inspection, no JVD Rhythm: NSR Cardiovascular: normal peripheral pulses, normal rate Respiratory/Chest: chest wall non-tender, lungs clear, normal breath sounds, no respiratory distress, no accessory muscle use Abdomen: normal bowel sounds, non tender, soft, no organomegaly Extremities: normal range of motion, non-tender, normal inspection Neurologic: logging assistant II-XII grossly normal, no motor/sensory deficits Intake and Output 02/14/20 02/15/20 19:00 07:00 Intake Total 985 ml 957.50 ml Balance 985 ml 957.50 ml Free Water 250 ml IV Total 75 ml 957.50 ml Tube Feeding 660 ml # Bowel Movements 1 2 Laboratory Tests Test 02/15/20 02:00 02/15/20 06:22 02/15/20 06:27 Urine Color Pale yellow Urine Appearance Clear Urine pH 7 (4.5-8.0) Urine Specific [place] 1.005 (1.005-1.035) Urine Protein 2+ (NEGATIVE) H Urine Glucose (UA) Negative (NEGATIVE) Urine Ketones Negative (NEGATIVE) Urine Blood 1+ (NEGATIVE) H Urine Nitrite Negative (NEGATIVE) Urine Bilirubin Negative (NEGATIVE) Urine Urobilinogen Normal MG/DL (0.0-1.0) Urine Leukocyte Esterase Negative (NEGATIVE) Urine RBC 0-2 /HPF (0 - 2) Urine WBC 0 /HPF (0 - 2) Urine Squamous Epithelial Cells Few /LPF (NONE/OCC) Urine Bacteria None /HPF (NONE) Troponin I 2.269 ng/mL (0.000-0.056) White Blood Count 27.4 K/UL (4.8-10.8) *H Red Blood Count 3.10 M/UL (4.20-5.40) L Hemoglobin 8.7 G/DL (12.0-16.0) L Hematocrit 25.8 % (37.0-47.0) L Mean Corpuscular Volume 83 FL (80-99) Mean Corpuscular Hemoglobin 28.2 PG (27.0-31.0) Mean Corpuscular Hemoglobin Concent 33.9 G/DL (32.0-36.0) Red Cell Distribution Width 14.0 % (11.6-14.8) Platelet Count 455 K/UL (150-450) H Mean Platelet Volume 5.8 FL (6.5-10.1) L Neutrophils (%) (Auto) % (45.0-75.0) Lymphocytes (%) (Auto) % (20.0-45.0) Monocytes (%) (Auto) % (1.0-10.0) Eosinophils (%) (Auto) % (0.0-3.0) Basophils (%) (Auto) % (0.0-2.0) Differential Total Cells Counted 100 Neutrophils % (Manual) 95 % (45-75) H Lymphocytes % (Manual) 1 % (20-45) L Monocytes % (Manual) 4 % (1-10) Eosinophils % (Manual) 0 % (0-3) Basophils % (Manual) 0 % (0-2) Band Neutrophils 0 % (0-8) Platelet Estimate Increased H Platelet Morphology Normal Sodium Level 133 MMOL/L (136-145) L Potassium Level 3.5 MMOL/L (3.5-5.1) Chloride Level 100 MMOL/L (98-107) Carbon Dioxide Level 25 MMOL/L (21-32) Anion Gap 8 mmol/L (5-15) Blood Urea Nitrogen 20 mg/dL (7-18) H Creatinine 0.8 MG/DL (0.55-1.30) Estimat Glomerular Filtration Rate > 60 mL/min (>60) Glucose Level 138 MG/DL (74-106) H Calcium Level 8.1 MG/DL (8.5-10.1) L Dennis Crain MD Feb 15, 2020 11:31
--- NOTE | 2020-02-15 11:38 | Cardiac Electrophysiology PN ---
Assessment/Plan Assessment/Plan 1. Status post right-sided [facility] DDD pacer implantation. Interrogation showed No Pacer Mediated tachycardia Just sinus tach likely due to acute PA with troponin 31. Continue Lopressor 2. Acute NSTEMI with peak troponin 31. Down to 2. Non verbal. Continue aspirin, Lopressor and Lipitor. Repeat Echo on 02/11/20 EF 40-45% 3. Diabetes. 4. Hypertension, on Toprol 25 daily. 5. Status post septic shock. WBC today increased to 27 K. On iv Abx per Dr Naylor 6. Severe anemia. Hemoglobin improved from 7.5 to 9.4. 7. Dementia. 8. CVA. 10. COPD. 11. ARF and possible hydrnephrosis, Cr now normal. CT abdomen and pelvis pending 12. S/P PEG placement. LAKIA RN and Dr. Uribe Subjective Subjective Nonverbal but responsive. Is sinus with V tracking at around 100-110. Comfortable in NAD.Troponin level down to 2. Objective Last 24 Hour Vital Signs Date Time Temp Pulse Resp B/P (MAP) Pulse Ox O2 Delivery O2 Flow Rate FiO2 02/15/20 09:53 108 125/66 02/15/20 08:00 98.3 108 20 125/66 (85) 99 02/15/20 08:00 108 02/15/20 04:00 98.8 111 20 143/72 (95) 98 02/15/20 04:00 105 02/15/20 00:00 99.0 81 18 131/72 (91) 99 02/15/20 00:00 101 02/14/20 20:37 95 115/60 02/14/20 20:00 92 02/14/20 20:00 97.9 95 20 115/60 (78) 96 02/14/20 18:00 98.3 108 24 117/69 (85) 97 02/14/20 16:00 97.9 108 24 117/69 (85) 97 02/14/20 15:43 110 02/14/20 11:40 100 Intake and Output 02/14/20 02/15/20 19:00 07:00 Intake Total 985 ml 957.50 ml Balance 985 ml 957.50 ml Free Water 250 ml IV Total 75 ml 957.50 ml Tube Feeding 660 ml # Bowel Movements 1 2 Laboratory Tests Test 02/15/20 02:00 02/15/20 06:22 02/15/20 06:27 Urine Color Pale yellow Urine Appearance Clear Urine pH 7 (4.5-8.0) Urine Specific [place] 1.005 (1.005-1.035) Urine Protein 2+ (NEGATIVE) H Urine Glucose (UA) Negative (NEGATIVE) Urine Ketones Negative (NEGATIVE) Urine Blood 1+ (NEGATIVE) H Urine Nitrite Negative (NEGATIVE) Urine Bilirubin Negative (NEGATIVE) Urine Urobilinogen Normal MG/DL (0.0-1.0) Urine Leukocyte Esterase Negative (NEGATIVE) Urine RBC 0-2 /HPF (0 - 2) Urine WBC 0 /HPF (0 - 2) Urine Squamous Epithelial Cells Few /LPF (NONE/OCC) Urine Bacteria None /HPF (NONE) Troponin I 2.269 ng/mL (0.000-0.056) White Blood Count 27.4 K/UL (4.8-10.8) *H Red Blood Count 3.10 M/UL (4.20-5.40) L Hemoglobin 8.7 G/DL (12.0-16.0) L Hematocrit 25.8 % (37.0-47.0) L Mean Corpuscular Volume 83 FL (80-99) Mean Corpuscular Hemoglobin 28.2 PG (27.0-31.0) Mean Corpuscular Hemoglobin Concent 33.9 G/DL (32.0-36.0) Red Cell Distribution Width 14.0 % (11.6-14.8) Platelet Count 455 K/UL (150-450) H Mean Platelet Volume 5.8 FL (6.5-10.1) L Neutrophils (%) (Auto) % (45.0-75.0) Lymphocytes (%) (Auto) % (20.0-45.0) Monocytes (%) (Auto) % (1.0-10.0) Eosinophils (%) (Auto) % (0.0-3.0) Basophils (%) (Auto) % (0.0-2.0) Differential Total Cells Counted 100 Neutrophils % (Manual) 95 % (45-75) H Lymphocytes % (Manual) 1 % (20-45) L Monocytes % (Manual) 4 % (1-10) Eosinophils % (Manual) 0 % (0-3) Basophils % (Manual) 0 % (0-2) Band Neutrophils 0 % (0-8) Platelet Estimate Increased H Platelet Morphology Normal Sodium Level 133 MMOL/L (136-145) L Potassium Level 3.5 MMOL/L (3.5-5.1) Chloride Level 100 MMOL/L (98-107) Carbon Dioxide Level 25 MMOL/L (21-32) Anion Gap 8 mmol/L (5-15) Blood Urea Nitrogen 20 mg/dL (7-18) H Creatinine 0.8 MG/DL (0.55-1.30) Estimat Glomerular Filtration Rate > 60 mL/min (>60) Glucose Level 138 MG/DL (74-106) H Calcium Level 8.1 MG/DL (8.5-10.1) L Objective HEAD AND NECK: Shows no JVD. LUNGS: Coarse rhonchi. CARDIOVASCULAR: Regular S1 and S2. Pacemaker is in the right subclavian. ABDOMEN: Soft.PEG in place EXTREMITIES: Contracted. Oscar Corley MD Feb 15, 2020 11:38
[2020-02-15 12:00] VITALS: BP 128/76
--- NOTE | 2020-02-15 12:51 | Diagnostic Imaging Report ---
Indication: Dyspnea Comparison: 02/11/2020 A single view chest radiograph was obtained. Findings: No definite infiltrate or pulmonary vascular congestion identified. The heart is enlarged. The aorta is mildly enlarged consistent with atherosclerotic vascular disease. The bones are osteopenic. There are thoracic vertebral enthesophytes at multiple levels. Pacemaker noted on the right. Impression: No acute disease
--- NOTE | 2020-02-15 13:25 | Neurology Progress Note ---
Interim History Interim History ROS Limited/Unobtainable: No Interim History not at baseline unable to say name Objective Physical Exam Last Vital Signs Date Time Temp Pulse Resp B/P (MAP) Pulse Ox O2 Delivery O2 Flow Rate FiO2 02/15/20 12:00 98.4 102 20 128/76 (93) 97 02/13/20 21:00 Room Air 02/09/20 04:00 2.0 02/07/20 19:19 28 Laboratory Tests Test 02/15/20 02:00 02/15/20 06:22 02/15/20 06:27 Urine Color Pale yellow Urine Appearance Clear Urine pH 7 (4.5-8.0) Urine Specific [place] 1.005 (1.005-1.035) Urine Protein 2+ (NEGATIVE) H Urine Glucose (UA) Negative (NEGATIVE) Urine Ketones Negative (NEGATIVE) Urine Blood 1+ (NEGATIVE) H Urine Nitrite Negative (NEGATIVE) Urine Bilirubin Negative (NEGATIVE) Urine Urobilinogen Normal MG/DL (0.0-1.0) Urine Leukocyte Esterase Negative (NEGATIVE) Urine RBC 0-2 /HPF (0 - 2) Urine WBC 0 /HPF (0 - 2) Urine Squamous Epithelial Cells Few /LPF (NONE/OCC) Urine Bacteria None /HPF (NONE) Troponin I 2.269 ng/mL (0.000-0.056) White Blood Count 27.4 K/UL (4.8-10.8) *H Red Blood Count 3.10 M/UL (4.20-5.40) L Hemoglobin 8.7 G/DL (12.0-16.0) L Hematocrit 25.8 % (37.0-47.0) L Mean Corpuscular Volume 83 FL (80-99) Mean Corpuscular Hemoglobin 28.2 PG (27.0-31.0) Mean Corpuscular Hemoglobin Concent 33.9 G/DL (32.0-36.0) Red Cell Distribution Width 14.0 % (11.6-14.8) Platelet Count 455 K/UL (150-450) H Mean Platelet Volume 5.8 FL (6.5-10.1) L Neutrophils (%) (Auto) % (45.0-75.0) Lymphocytes (%) (Auto) % (20.0-45.0) Monocytes (%) (Auto) % (1.0-10.0) Eosinophils (%) (Auto) % (0.0-3.0) Basophils (%) (Auto) % (0.0-2.0) Differential Total Cells Counted 100 Neutrophils % (Manual) 95 % (45-75) H Lymphocytes % (Manual) 1 % (20-45) L Monocytes % (Manual) 4 % (1-10) Eosinophils % (Manual) 0 % (0-3) Basophils % (Manual) 0 % (0-2) Band Neutrophils 0 % (0-8) Platelet Estimate Increased H Platelet Morphology Normal Sodium Level 133 MMOL/L (136-145) L Potassium Level 3.5 MMOL/L (3.5-5.1) Chloride Level 100 MMOL/L (98-107) Carbon Dioxide Level 25 MMOL/L (21-32) Anion Gap 8 mmol/L (5-15) Blood Urea Nitrogen 20 mg/dL (7-18) H Creatinine 0.8 MG/DL (0.55-1.30) Estimat Glomerular Filtration Rate > 60 mL/min (>60) Glucose Level 138 MG/DL (74-106) H Calcium Level 8.1 MG/DL (8.5-10.1) L Head: normocophalic, atraumatic Neck: no rigidity EENT: benign Neurologic Exam Sensory: other - cc 35 min Objective lethargic, minimal withdraw in all 4 cc 35 min Impression/Recommendations Problems: (1) Septic shock (2) Anemia (3) Elevated troponin (4) Sepsis (5) Decubitus skin ulcer Status: stable Diagnostic Impression Acute encephalopathy in the context of sepsis Dementia, likely vascular Hx of strokes Monitor neuro exam Delirium precautions atb broad spectrum asa daily Luis Nash MD Feb 15, 2020 13:25
--- NOTE | 2020-02-15 13:38 | Urology Progress Note ---
Assessment/Plan Status: stable Assessment/Plan: 1. Possible left-sided hydronephrosis versus parapelvic cyst. 2. Urinary retention. 3. Neurogenic bladder. 4. Proteinuria. 5. Hematuria. 6. Pyuria. 7. Sepsis history. 8. Cystitis. monitor clinically john indwelling hand irrigated and do PRN monitor renal fxn and WBC await CT A/P with IV contrast d/w Dr. Jojo lamb at some point on abx voiding trial later f/u on blood cx Subjective Allergies: Coded Allergies: No Known Allergies (Unverified , 01/30/20) Subjective all noted Objective Last 24 Hour Vital Signs Date Time Temp Pulse Resp B/P (MAP) Pulse Ox O2 Delivery O2 Flow Rate FiO2 02/15/20 12:00 98.4 102 20 128/76 (93) 97 02/15/20 12:00 101 02/15/20 09:53 108 125/66 02/15/20 08:00 98.3 108 20 125/66 (85) 99 02/15/20 08:00 108 02/15/20 04:00 98.8 111 20 143/72 (95) 98 02/15/20 04:00 105 02/15/20 00:00 99.0 81 18 131/72 (91) 99 02/15/20 00:00 101 02/14/20 20:37 95 115/60 02/14/20 20:00 92 02/14/20 20:00 97.9 95 20 115/60 (78) 96 02/14/20 18:00 98.3 108 24 117/69 (85) 97 02/14/20 16:00 97.9 108 24 117/69 (85) 97 02/14/20 15:43 110 Intake and Output 02/14/20 02/15/20 19:00 07:00 Intake Total 985 ml 957.50 ml Balance 985 ml 957.50 ml Free Water 250 ml IV Total 75 ml 957.50 ml Tube Feeding 660 ml # Bowel Movements 1 2 Microbiology Date/Time Source Procedure Growth Status 02/11/20 10:00 Blood Blood Culture - Preliminary NO GROWTH AFTER 72 HOURS Resulted 01/30/20 15:45 Nasal Nares MRSA Culture - Final NO METHICILLIN RESISTANT STAPH AUREUS... Complete 02/04/20 19:00 Stool Clostridium difficile Toxin Assay - Final Complete 02/11/20 14:30 Urine,Clean Catch Urine Culture - Final Enterococcus Faecium - Vre Complete 01/30/20 15:45 Rectum VRE Culture - Final NO VANCOMYCIN RESISTANT ENTEROCOCCUS ... Complete Current Medications Medications (Trade) Dose Ordered Sig/[place] Route PRN Reason Start Time Stop Time Status Last Admin Dose Admin Acetaminophen (Tylenol) 650 mg Q4H PRN GT Mild Pain/Temp > 100.5 02/09/20 14:30 03/08/20 10:29 02/10/20 22:07 Acetylcysteine (Mucomyst) 600 mg TWICE A DAY ORAL 02/14/20 18:15 02/15/20 18:01 02/15/20 09:50 Amlodipine Besylate (Norvasc) 10 mg DAILY ORAL 02/16/20 09:00 03/17/20 08:59 Aspirin (ASA) 81 mg DAILY GT 02/11/20 09:00 03/27/20 08:59 02/15/20 09:53 Atorvastatin Calcium (Lipitor) 40 mg BEDTIME ORAL 02/09/20 21:00 04/29/20 20:59 02/14/20 20:36 Barium Sulfate (Readi-Cat 2) 450 ml NOW PRN ORAL Radiology Procedure 02/15/20 09:45 02/17/20 09:38 Barium Sulfate (Varibar Honey) 250 ml NOW PRN MC RAD 02/13/20 13:45 02/16/20 13:34 Barium Sulfate (Varibar [place]) 240 ml NOW PRN MC RAD 02/13/20 13:45 02/16/20 13:34 Barium Sulfate (Varibar Pudding) 230 ml NOW PRN MC RAD 02/13/20 13:45 02/16/20 13:34 Dextrose (Dextrose 50%) 25 ml Q30M PRN IV Hypoglycemia 02/09/20 14:30 04/29/20 18:59 Dextrose (Dextrose 50%) 50 ml Q30M PRN IV Hypoglycemia 02/09/20 14:30 04/29/20 18:59 Diphenhydramine HCl (Benadryl) 25 mg Q6H PRN ORAL Itching/Pruritis 02/09/20 15:00 03/10/20 14:59 Diphenoxylate HCl/ Atropine (Lomotil) 2.5 mg Q4H PRN GT Diarrhea 02/09/20 15:00 03/08/20 14:59 Fluconazole/ Sodium Chloride 100 ml @ 100 mls/hr Q24H IV 02/14/20 22:00 02/21/20 21:59 02/14/20 22:46 Iohexol (OMNIPAQUE-300 100ml) 100 ml NOW PRN INJ Radiology Procedure 02/15/20 09:45 02/17/20 09:38 Iron Sucrose 100 mg/Sodium Chloride 60 ml @ 240 mls/hr BEDTIME IV 02/14/20 21:00 02/18/20 21:14 02/14/20 20:35 Levothyroxine Sodium (Synthroid) 25 mcg DAILY@0630 ORAL 02/10/20 06:30 03/01/20 06:29 02/15/20 05:32 Linezolid 300 ml @ 300 mls/hr EVERY 12 HOURS IVPB 02/14/20 19:30 02/21/20 19:29 02/15/20 09:49 Loperamide HCl (Imodium) 2 mg Q3H PRN NG Diarrhea 02/10/20 12:45 03/11/20 12:44 Meropenem 1 gm/ Sodium Chloride 55 ml @ 110 mls/hr Q12H IVPB 02/15/20 14:00 02/20/20 13:59 Metoprolol Tartrate (Lopressor) 37.5 mg Q12HR GT 02/15/20 21:00 05/13/20 08:59 Ondansetron HCl (Zofran) 4 mg Q6H PRN IVP Nausea & Vomiting 02/09/20 15:00 02/29/20 14:59 Pantoprazole (Protonix) 40 mg EVERY 12 HOURS IVP 02/09/20 21:00 03/08/20 20:59 02/15/20 09:50 Sodium Chloride 1,000 ml @ 75 mls/hr [id number] IV 02/15/20 10:15 02/16/20 10:15 02/15/20 10:26 Vancomycin HCl (Firvanq) 125 mg FOUR TIMES A DAY ORAL 02/15/20 13:00 02/22/20 12:59 Laboratory Tests 02/15/20 02:00: Urine Color Pale yellow, Urine Appearance Clear, Urine pH 7, Urine Specific [place] 1.005, Urine Protein 2+H, Urine Glucose (UA) Negative, Urine Ketones Negative, Urine Blood 1+H, Urine Nitrite Negative, Urine Bilirubin Negative, Urine Urobilinogen Normal, Urine Leukocyte Esterase Negative, Urine RBC 0-2, Urine WBC 0, Urine Squamous Epithelial Cells Few, Urine Bacteria None 02/15/20 06:22: Troponin I 2.269H 02/15/20 06:27: White Blood Count 27.4*H, Red Blood Count 3.10L, Hemoglobin 8.7L, Hematocrit 25.8L, Mean Corpuscular Volume 83, Mean Corpuscular Hemoglobin 28.2, Mean Corpuscular Hemoglobin Concent 33.9, Red Cell Distribution Width 14.0, Platelet Count 455H, Mean Platelet Volume 5.8L, Neutrophils (%) (Auto) , Lymphocytes (%) (Auto) , Monocytes (%) (Auto) , Eosinophils (%) (Auto) , Basophils (%) (Auto) , Differential Total Cells Counted 100, Neutrophils % (Manual) 95H, Lymphocytes % (Manual) 1L, Monocytes % (Manual) 4, Eosinophils % (Manual) 0, Basophils % ( Manual) 0, Band Neutrophils 0, Platelet Estimate IncreasedH, Platelet Morphology Normal, Sodium Level 133L, Potassium Level 3.5, Chloride Level 100, Carbon Dioxide Level 25, Anion Gap 8, Blood Urea Nitrogen 20H, Creatinine 0.8, Estimat Glomerular Filtration Rate > 60, Glucose Level 138H, Calcium Level 8.1L Height (Feet): 5 Height (Inches): 2.00 Weight (Pounds): 127 Objective exam stable renal u/s (02/11) noted Timothy Leos MD Feb 15, 2020 13:37
[2020-02-15] MEDS: Vancomycin oral 125mg/2.5ml ORAL SCH ×3 (13:59→20:53)
[2020-02-15] MEDS: Meropenem 1 GM in NS 55 ML IVPB SCH (14:15)
[2020-02-15 16:00] VITALS: BP 126/79
--- NOTE | 2020-02-15 17:37 | Diagnostic Imaging Report ---
Clinical Indication: Abdominal pain Technique: Patient given enteric contrast. IV administration nonionic contrast. Venous phase spiral acquisition obtained through the abdomen and pelvis. Multiplanar reconstructions were generated. Total dose length product recurrent 30 mGycm. CTDIvol(s) 5 mGy. 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 The lower pole collecting system is markedly hydronephrotic. The upper pole collecting system is normal in appearance. There is inflammatory change surrounding the lower pole of the left kidney, with some fluid tracking caudad along Gerota's fascia. There is either a cyst or dilated calyx in the left lower pole, suspect the latter as this appears to communicate with the collecting system along the anterior border of the kidney, best visualized on the sagittal reconstructed images. No obstructing stone or mass is demonstrated. There is no hydroureter. The upper pole collecting system is nondilated. There is probably only a single left ureter, but this cannot be stated for certain. The right kidney demonstrates subcentimeter low-attenuation lesions which are too small to characterize, most likely benign simple cysts. There is a Tovar catheter within the bladder, which contains some gas presumably related to the Tovar catheterization. There are retrococcygeal decubitus changes and suspicion for some ulceration. This is more evident than on the prior exam. No definite osseous destruction. The liver, gallbladder, bile ducts, pancreas, spleen, adrenals are unremarkable. No retroperitoneal or mesenteric mass or adenopathy. No pelvic mass or adenopathy. The uterus is absent. Ingested contrast has reached the distal colon, and there is some evidence of rectal fecal incontinence. No evidence of colonic diverticulosis or diverticulitis. The appendix is normal. No small bowel distention. No small bowel wall thickening. There is a small amount of free pelvic fluid. Distal esophagus is unremarkable. The stomach contains a gastrostomy which appears to be well positioned. Fairly extensive chronic degenerative changes are seen about both hips. There is some infiltration of the subcutaneous fat in the bilateral neck regions which is nonspecific. There are degenerative changes of the lumbar spine Included lung bases demonstrate small bilateral pleural effusions. Hazy parenchymal disease is seen in the bilateral lower lobes. 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 Inflammatory change is seen surrounding the lower pole left kidney. This is new since the prior exam, could inflammation secondary to acute obstruction versus infection, suspect the latter. Etiology of obstruction not demonstrated, could a congenital ureteropelvic junction obstruction Retrococcygeal decubitus changes and possibly ulceration. Correlate with clinical findings Bilateral pleural effusions. This is new since the previous study. 1.6 cm left adrenal mass, much more clearly demonstrated on the previous exam. Consider follow-up with adrenal protocol CT if this would affect management Gastrostomy, Tovar catheter, pacemaker incidentally noted Evidence of prior hysterectomy Incidental findings of degenerative disc disease, bilateral hip degenerative changes This agrees with the preliminary interpretation provided overnight by [facility] teleradiology service. Findings also discussed by phone earlier today with Dr. Leos The CT scanner at [facility] is accredited by the [employer] and the scans are performed using protocols designed to limit radiation exposure to as low as reasonably achievable to attain images of sufficient resolution adequate for diagnostic evaluation.
--- NOTE | 2020-02-15 19:15 | Surgery Progress Note ---
Surgery Progress Note Subjective Additional Comments ill appearing labs noted CT reviewed urology input noted Objective Last 24 Hour Vital Signs Date Time Temp Pulse Resp B/P (MAP) Pulse Ox O2 Delivery O2 Flow Rate FiO2 02/15/20 12:00 98.4 102 20 128/76 (93) 97 02/15/20 12:00 101 02/15/20 09:53 108 125/66 02/15/20 08:00 98.3 108 20 125/66 (85) 99 02/15/20 08:00 108 02/15/20 04:00 98.8 111 20 143/72 (95) 98 02/15/20 04:00 105 02/15/20 00:00 99.0 81 18 131/72 (91) 99 02/15/20 00:00 101 02/14/20 20:37 95 115/60 02/14/20 20:00 92 02/14/20 20:00 97.9 95 20 115/60 (78) 96 I&O Intake and Output 02/14/20 02/15/20 19:00 07:00 Intake Total 985 ml 957.50 ml Balance 985 ml 957.50 ml Free Water 250 ml IV Total 75 ml 957.50 ml Tube Feeding 660 ml # Bowel Movements 1 2 Dressing: saturated Wound: other Drains: other Cardiovascular: RSR Respiratory: decreased breath sounds Abdomen: soft, non-tender, present bowel sounds Extremities: no cyanosis Laboratory Tests Test 02/15/20 02:00 02/15/20 06:22 02/15/20 06:27 02/15/20 17:00 Urine Color Pale yellow Urine Appearance Clear Urine pH 7 (4.5-8.0) Urine Specific [place] 1.005 (1.005-1.035) Urine Protein 2+ (NEGATIVE) H Urine Glucose (UA) Negative (NEGATIVE) Urine Ketones Negative (NEGATIVE) Urine Blood 1+ (NEGATIVE) H Urine Nitrite Negative (NEGATIVE) Urine Bilirubin Negative (NEGATIVE) Urine Urobilinogen Normal MG/DL (0.0-1.0) Urine Leukocyte Esterase Negative (NEGATIVE) Urine RBC 0-2 /HPF (0 - 2) Urine WBC 0 /HPF (0 - 2) Urine Squamous Epithelial Cells Few /LPF (NONE/OCC) Urine Bacteria None /HPF (NONE) Troponin I 2.269 ng/mL (0.000-0.056) White Blood Count 27.4 K/UL (4.8-10.8) *H Red Blood Count 3.10 M/UL (4.20-5.40) L Hemoglobin 8.7 G/DL (12.0-16.0) L Hematocrit 25.8 % (37.0-47.0) L Mean Corpuscular Volume 83 FL (80-99) Mean Corpuscular Hemoglobin 28.2 PG (27.0-31.0) Mean Corpuscular Hemoglobin Concent 33.9 G/DL (32.0-36.0) Red Cell Distribution Width 14.0 % (11.6-14.8) Platelet Count 455 K/UL (150-450) H Mean Platelet Volume 5.8 FL (6.5-10.1) L Neutrophils (%) (Auto) % (45.0-75.0) Lymphocytes (%) (Auto) % (20.0-45.0) Monocytes (%) (Auto) % (1.0-10.0) Eosinophils (%) (Auto) % (0.0-3.0) Basophils (%) (Auto) % (0.0-2.0) Differential Total Cells Counted 100 Neutrophils % (Manual) 95 % (45-75) H Lymphocytes % (Manual) 1 % (20-45) L Monocytes % (Manual) 4 % (1-10) Eosinophils % (Manual) 0 % (0-3) Basophils % (Manual) 0 % (0-2) Band Neutrophils 0 % (0-8) Platelet Estimate Increased H Platelet Morphology Normal Sodium Level 133 MMOL/L (136-145) L Potassium Level 3.5 MMOL/L (3.5-5.1) Chloride Level 100 MMOL/L (98-107) Carbon Dioxide Level 25 MMOL/L (21-32) Anion Gap 8 mmol/L (5-15) Blood Urea Nitrogen 20 mg/dL (7-18) H Creatinine 0.8 MG/DL (0.55-1.30) Estimat Glomerular Filtration Rate > 60 mL/min (>60) Glucose Level 138 MG/DL (74-106) H Calcium Level 8.1 MG/DL (8.5-10.1) L Activated Partial Thromboplast Time 33 SEC (23-33) Plan Problems: (1) Septic shock Assessment & Plan: Patient presented to emergency department with sepsis hypotension tachycardia lactic acidosis leukocytosis. On IV antibiotics Labs improving IV hydration Continue tube feeds advance goal as tolerated Abdominal exam does elicit patient to retract a bit but she is not tender peritonitis or without rebound or significant guarding. exam improved Likely startle effect rather than intra-abdominal pathology will follow with serial exams continue with current care plan thank you for let me participate in patient's care leukocytosis. c diff negative. blood cultures noted abx as per ID Severe left hydronephrosis versus parapelvic cysts. No definite obstructing stone. Mild bladder wall thickening with small gas foci in the bladder, concerning for cystitis. Please correlate with urinalysis. Acute NSTEMI with peak troponin 31 as per cardiology wbc fever micro worsening leukocytosis -Small bilateral pleural effusions with passive atelectasis and lung base motion artifact. -Pacer device leads in the heart. -Tovar catheter in the decompressed urinary bladder. - No urolithiasis seen. -Consider left renal collecting system infection/UTI/pyelonephritis in the proper context given moderate left perinephric stranding which is asymmetric compared with the right. -Similar to prior study left inferior renal moiety moderate hydronephrosis without visualized cause. 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 -If there is further desire to evaluate collecting system dilation, consider repeating the study with CT hematuria protocol. -Sacral decubitus ulcer, correlate with presentation. - Rapid transit of contrast through the GI tract could be incidental or could be seen with an infectious or inflammatory enteritis. -Indeterminate left adrenal 2.1 cm enhancing nodule, if felt to alter clinical management consider additional evaluation adrenal gland. CONSIDER correlation with prior imaging studies. -Right renal cortical scarring due to old infectious or ischemic insults. -Atherosclerotic vascular disease. - Hysterectomy. -Unchanged osteopenia and degenerative spine findings. Unchanged old right possible lesser trochanter fracture versus extensive right hip capsular calcifications. (2) Decubitus skin ulcer Assessment & Plan: 84-year-old female presented on admission with multiple decubitus skin ulcers and skin concerns. Patient identified to have a unstageable sacral lower back decubitus ulcer, periwound maceration, area of necrotic eschar soft, no drainage, no abscess, no foul odor Pt presented on admission with contractures, Multiple Pressure injuries.open DTPI sacrum.Wound is open at sacrococcygeal area(40%), with soft necrotic base ( L)5.5cm x (W)4.5cm. Surrounding base of wound is maroon and indurated. Total area of sacral DTPI measures(L) 12.5cm x (W)15cm. Non-blanching erythema periwound.In addition several small partial thickness wounds noted along Perineum.` Areas of hyperpigmentation noted to L and R trochanteric. Full thickness wound R knee.(L)1.1cm x (W)1.5cm.1 Base of wound 90% pink granulation,10% slough noted in center of wound. Borders are macerated.small amt serous exudate. No odor noted. No erythema or fluctuance noted periwound. Non-blanching erythema with fluctuance R heel. Unstageable pressure injury R hallux. Base of wound is 100% soft necrosis. Edges adherent and dry.No odor or exudate noted.Surrounding darker skin tone without erythema or fluctuance(L)2.6cm x (W)3cm. DTPI R Ankle(L)0.9cm x (W)1.6cm. Base of wound is fluctuant, maroon with marginal erythema. Periwound without erythema or fluctuance. Unstageable pressure injury distal/lateral R foot. Base of wound 100% soft necrosis with surrounding non-blanching erythema with fluctuance.(L)2cm x (W) 0.9cm. Stable dry eschar medial/lateral R foot (L)0.4cm x (W)0.8cm. Stable dry eschar lateral L heel.(L)1.9cm x (W)2.2cm. No erythema or fluctuance periwound. Unstable pressure injury medial/lateral L foot. Base of wound is 100% necrotic but dry.(L)0.7cm x (W)0.8cm. Unstageable pressure injury distal/lateral L foot. Base of wound is 100% necrotic but dry. (L)1.2cm x (W)1.6cm.non-blanching erythema without fluctuance periwound. Non-blanching erythema without fluctuance lateral L 5th metatarsal.(L)1.5cm x (W )0.5cm. Open DTPI L Hallux.Base of wound has mixed necrosis and slough with surrounding base of wound maroon with fluctuance. Non-blanching erythema without elevation in skin temp,or fluctuance periwound. Tx.plan: Cleanse Sacral wound with Saline. Apply TheraHoney. Apply Moisture Barrier Paste Periwound. Cover with Optifoam drsg. Change Daily and prn. Swab R nee with Betadine. Cover with Optifoam drsg every 3 days and prn. Swab wounds R foot with Betadine. Cover each wound with Optifoam drsg. Change every 3 days and prn. Swab wounds L foot with Betadine. Cover each wound with Optifoam drsg. Change every 3 days and prn. Reposition at least every 2hours or as tolerated. Place pillow between knees. Off-load heels with Pillow. APM/ARIEL Mattress. DAILY ESTIMATED NEEDS: Needs based on Wounds, underweight 50kg 30-35 kcals/kg 5773-4881 total kcals 1.25-2 g protein/kg 63-100 g total protein 25-30 mL/kg 9947-9148 total fluid mLs NUTRITION DIAGNOSIS: Increased kcal and pro needs r/t underweight status and wound healing as evidenced by pt @85% [place] Body Weight w/ multiple wounds, eval pending, pt is PEG dep. CURRENT TF:Glucerna 1.5 @60ml x20 hrs ENTERAL NUTRITION RECOMMENDATIONS: Maintain current TF as tolerated: Glucerna 1.5 @60ml/hr x20 hrs to provide 1200ml, 1800 kcal, 99g pro, 911ml free H2o -> Monitor for hypoglycemia and need to change to non carb control formula -> Flush per MD. HOB over 30 degrees ADDITIONAL RECOMMENDATIONS: 1) On iso, per SNF pt is: 65 inches + 110#/50kg 2) Wound care: add MATT in 4oz H2O BID via GT F/up w/ WC eval 3) Maintain calibrated bed scale wts 4) Monitor for continued hypoglycemic events, need for D5 or TF change Luther Mercedes Feb 15, 2020 19:15
[2020-02-15 20:00] VITALS: BP 123/86
[2020-02-15] MEDS: Atorvastatin 20mg tab ORAL SCH (20:46)
[2020-02-15] MEDS: Iron Sucrose 100 MG in NS 55 ML IV SCH (20:51)
[2020-02-16] VITALS: BP 124/76
[2020-02-16] MEDS: Meropenem 1 GM in NS 55 ML IVPB SCH ×2 (02:33→13:18)
[2020-02-16 04:00] VITALS: BP 113/59
[2020-02-16] MEDS: Levothyroxine 25mcg tab ORAL SCH (05:32)
--- NOTE | 2020-02-16 07:35 | General Progress Note ---
Assessment/Plan Problem List: (1) Diarrhea ICD Codes: R19.7 - Diarrhea, unspecified SNOMED: 18037063 (2) GI (gastrointestinal bleed) ICD Codes: K92.2 - Gastrointestinal hemorrhage, unspecified SNOMED: 94496207 (3) Elevated troponin ICD Codes: R79.89 - Other specified abnormal findings of blood chemistry; R65.21 - Severe sepsis with septic shock SNOMED: 874896605, 018440497, 458753846 (4) Anemia ICD Codes: D64.9 - Anemia, unspecified SNOMED: 617874422 (5) Septic shock ICD Codes: A41.9 - Sepsis, unspecified organism; R65.21 - Severe sepsis with septic shock SNOMED: 94507098 Status: stable Assessment/Plan: diarrhea is better with Lomotil and Imodium neg stool C.diff ppi>>> will dc TF , Glucerna 1.2 s/p blood transfusion last week COVID >>> neg given active DC and stable H&H will hold GI procedures for now repeat stool ob>>> neg repeat CBC fu ID regarding ABX treatment of Pylo fu repeat CT>>> reviewed>>>fu ID recs Subjective ROS Limited/Unobtainable: No Allergies: Coded Allergies: No Known Allergies (Unverified , 01/30/20) Objective Last 24 Hour Vital Signs Date Time Temp Pulse Resp B/P (MAP) Pulse Ox O2 Delivery O2 Flow Rate FiO2 02/16/20 04:00 98.2 105 18 113/59 (77) 97 02/16/20 04:00 102 02/16/20 00:00 99.3 111 20 124/76 (92) 95 02/16/20 00:00 99 02/15/20 22:00 101 02/15/20 20:46 93 123/86 02/15/20 20:00 98.5 93 18 123/86 (98) 93 02/15/20 16:00 100 02/15/20 16:00 98.1 109 22 126/79 (95) 98 02/15/20 12:00 98.4 102 20 128/76 (93) 97 02/15/20 12:00 101 02/15/20 09:53 108 125/66 02/15/20 08:00 98.3 108 20 125/66 (85) 99 02/15/20 08:00 108 Intake and Output 02/15/20 02/16/20 19:00 07:00 Intake Total 60 ml Output Total 700 ml Balance 60 ml -700 ml Tube Feeding 60 ml Output Urine Total 700 ml # Bowel Movements 2 1 Laboratory Tests 02/15/20 17:00: Activated Partial Thromboplast Time 33 Height (Feet): 5 Height (Inches): 2.00 Weight (Pounds): 127 General Appearance: no apparent distress EENT: normal ENT inspection Neck: supple Cardiovascular: normal rate Respiratory/Chest: decreased breath sounds Abdomen: normal bowel sounds, non tender, soft Extremities: non-tender Herminio Rodriguez MD Feb 16, 2020 07:35
[2020-02-16 08:00] VITALS: BP 104/89
[2020-02-16] MEDS: Vancomycin oral 125mg/2.5ml ORAL SCH ×2 (09:10→13:17)
[2020-02-16] MEDS: Aspirin Baby 81mg GT SCH (09:11)
--- NOTE | 2020-02-16 10:08 | Cardiology Progress Note ---
Assessment/Plan Status: stable Assessment/Plan Assessment/Plan Assessment/Plan: CVA Non verbal DM COPD CKD CHF GERD Pacemaker Hypotension Sepsis -Troponin down trending -Monitor for arrhythmias -No indication for cath at this time. -Continue IV fluids -Continue aspirin/statin/metoprolol -PPM with normal function Subjective Cardiovascular: Reports: no symptoms Respiratory: Reports: no symptoms Gastrointestinal/Abdominal: Reports: no symptoms Genitourinary: Reports: no symptoms Subjective No acute events, Patient AAOx1 no distress tolerating tube feeds, WBC elevated, troponin down trending, tachycardic remains albeit mild, No shortness of breath or distress. CTA abdomen done with no kidney stones, small pleural effusions. Objective Last 24 Hour Vital Signs Date Time Temp Pulse Resp B/P (MAP) Pulse Ox O2 Delivery O2 Flow Rate FiO2 02/16/20 09:00 109 104/89 02/16/20 09:00 109 104/89 02/16/20 08:00 97.2 109 20 104/89 (94) 97 02/16/20 04:00 98.2 105 18 113/59 (77) 97 02/16/20 04:00 102 02/16/20 00:00 99.3 111 20 124/76 (92) 95 02/16/20 00:00 99 02/15/20 22:00 101 02/15/20 20:46 93 123/86 02/15/20 20:00 98.5 93 18 123/86 (98) 93 02/15/20 16:00 100 02/15/20 16:00 98.1 109 22 126/79 (95) 98 02/15/20 12:00 98.4 102 20 128/76 (93) 97 02/15/20 12:00 101 General Appearance: no apparent distress, alert EENT: PERRL/EOMI, normal ENT inspection, TMs normal, pharynx normal Neck: non-tender, normal alignment, supple, normal inspection, no JVD Rhythm: NSR Cardiovascular: normal peripheral pulses, normal rate, regular rhythm Respiratory/Chest: chest wall non-tender, lungs clear, normal breath sounds, no respiratory distress, no accessory muscle use Abdomen: normal bowel sounds, non tender, soft, no organomegaly, no mass Extremities: normal range of motion, non-tender, normal inspection, no calf tenderness, no swelling Neurologic: service order expediter II-XII grossly normal, no motor/sensory deficits Intake and Output 02/15/20 02/16/20 19:00 07:00 Intake Total 60 ml Output Total 700 ml Balance 60 ml -700 ml Tube Feeding 60 ml Output Urine Total 700 ml # Bowel Movements 2 1 Laboratory Tests Test 02/15/20 17:00 Activated Partial Thromboplast Time 33 SEC (23-33) Microbiology Date/Time Source Procedure Growth Status 02/14/20 21:00 Blood Blood Culture - Preliminary NO GROWTH AFTER 24 HOURS Resulted 02/14/20 20:45 Blood Blood Culture - Preliminary NO GROWTH AFTER 24 HOURS Resulted 02/15/20 06:00 Stool Clostridium difficile Toxin Assay - Final Complete Dennis Crain MD Feb 16, 2020 10:08
[2020-02-16] MEDS ORDERED: 1/2 NS 1000ml IV ONE (10:33)
[2020-02-16] MEDS ORDERED: NS 275ml ONE (10:33)
[2020-02-16] MEDS ORDERED: Tubing IV Secondary IV ONE (10:33)
--- NOTE | 2020-02-16 11:17 | General Progress Note ---
Assessment/Plan Status: stable Assessment/Plan: 84 year old woman with history of CVA, hemiplegia, DM, COPD, CKD, hyperlipidemia , hypothyroidism, GERD, unspecified CHF, S/p PPM brought in from SNF with hypotension, found to be septic with leukocytosis and minimal pyuria #Sepsis #Citrobacter bacteremia #Enterococcus UTI #Yeast UTI #Left Hydronephrosis #Leukocytosis - remains elevated #Hypotension - resolved #Elevated lactate - resolved #diarrhea - improved #Fever - resolved -continue inpatient level of care, cardiac monitoring -COVID 19 negative -01/29 BCx +citrobacter -02/02 BCx negative -pt w/fever on 02/10: BCx NGTD, UA + for UTI, UCx + enterococcus -c diff negative on 02/03, 02/14 -Cont.imodium, lomotil per ID -CT A/p showing possible hydro and cystitis -Renal US: Moderate to severe left hydronephrosis vs parapelvic cysts, atrophic right kidney -worsening leukocytosis on 02/13 -02/13 BCx NGTD -CT abd/pel w/contrast 02/14: Evidence of left renal infection/UTI/Mathew with perinephric stranding, left hydronephrosis, duplicated left renal collecting system, atrophic right kidney -d/w Dr. Leos and Dr. Jacobo, elevated WBCs likely due to renal source , patient may need nephrostomy vs stent -ID following: zyvox, fluconazole, merrem -d/w sonTerry, , updated on POC #NSTEMI #HTN #HLD #Elevated BNP #S/p PPM, [facility] DDD #Sinus tachycardia -Echo 02/10: EF 40-45% -PPM interrogated: sinus tach -trop peak 31>> 8 >> 2.23 -monitor closely for evidence of fluid overload -cont. home amlodipine 10 mg -cont. medical management ASA, lipitor, lopressor -EP, Dr. Corley, following -Cardio, Dr. Crain, following: no indication for cath at this time #Hypernatremia - resolved #Hyponatremia #Unspecified CKD #One Kidney -FWF 200 cc q6 hr -monitor renal function -Nephro following, appreciate recs #Thrombocytosis -likely /2 to infectious process -downtrending -cont. to monitor -Heme, Dr. 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 D/w Dr. Fuller, Dr. Jacobo, Dr. Leos. Additional 20 mins spent discussion POC w/son, Terry, all questions answered. Subjective ROS Limited/Unobtainable: Yes - pt aphasic Allergies: Coded Allergies: No Known Allergies (Unverified , 01/30/20) Subjective Follow up for NSTEMI, gram negative bacteremia, worsening leukocytosis. Pt aphasic, awake, alert, appears comfortable. Objective Last 24 Hour Vital Signs Date Time Temp Pulse Resp B/P (MAP) Pulse Ox O2 Delivery O2 Flow Rate FiO2 02/16/20 09:00 109 104/89 02/16/20 09:00 109 104/89 02/16/20 08:00 97.2 109 20 104/89 (94) 97 02/16/20 04:00 98.2 105 18 113/59 (77) 97 02/16/20 04:00 102 02/16/20 00:00 99.3 111 20 124/76 (92) 95 02/16/20 00:00 99 02/15/20 22:00 101 02/15/20 20:46 93 123/86 02/15/20 20:00 98.5 93 18 123/86 (98) 93 02/15/20 16:00 100 02/15/20 16:00 98.1 109 22 126/79 (95) 98 02/15/20 12:00 98.4 102 20 128/76 (93) 97 02/15/20 12:00 101 Intake and Output 02/15/20 02/16/20 19:00 07:00 Intake Total 60 ml Output Total 700 ml Balance 60 ml -700 ml Tube Feeding 60 ml Output Urine Total 700 ml # Bowel Movements 2 1 Laboratory Tests 02/15/20 17:00: Activated Partial Thromboplast Time 33 02/16/20 10:30: White Blood Count [Pending], Red Blood Count [Pending], Hemoglobin [Pending], Hematocrit [Pending], Mean Corpuscular Volume [Pending], Mean Corpuscular Hemoglobin [Pending], Mean Corpuscular Hemoglobin Concent [Pending], Red Cell Distribution Width [Pending], Platelet Count [Pending], Mean Platelet Volume [ Pending], Neutrophils (%) (Auto) [Pending], Lymphocytes (%) (Auto) [Pending], Monocytes (%) (Auto) [Pending], Eosinophils (%) (Auto) [Pending], Basophils (%) (Auto) [Pending], Sodium Level [Pending], Potassium Level [Pending], Chloride Level [Pending], Carbon Dioxide Level [Pending], Blood Urea Nitrogen [Pending], Creatinine [Pending], Estimat Glomerular Filtration Rate [Pending], Glucose Level [Pending], Calcium Level [Pending] Height (Feet): 5 Height (Inches): 2.00 Weight (Pounds): 127 Objective General Appearance: NAD, non-verbal, awake, alert, cachetic, appears comfortable in bed HEENT: NCAT, MMM, EOMi CV: RRR Respiratory: lungs clear, normal breath sounds, no respiratory distress Abdomen: non tender, soft, +PEG tube, c/d/i Ext: Contracted bilaterally, multiple abrasions wrapped in bandages C/D/I Lorna Uribe M.D. Feb 16, 2020 11:17
[2020-02-16 11:19] LABS: HEMATOCRIT 23.4 % (37.0-47.0); HEMOGLOBIN 7.8 G/DL (12.0-16.0); MEAN CORPUSCULAR VOLUME 82 FL (80-99); PLATELET COUNT 397 K/UL (150-450); RED BLOOD COUNT 2.87 M/UL (4.20-5.40); RED CELL DISTRIBUTION WIDTH 13.9 % (11.6-14.8); WHITE BLOOD COUNT 21.2 K/UL (4.8-10.8)
[2020-02-16 11:28] LABS: ANION GAP 9 mmol/L (5-15); BLOOD UREA NITROGEN 13 mg/dL (7-18); CALCIUM 7.9 MG/DL (8.5-10.1); CARBON DIOXIDE 24 MMOL/L (21-32); CHLORIDE 103 MMOL/L (98-107); CREATININE 0.9 MG/DL (0.55-1.30); POTASSIUM 3.4 MMOL/L (3.5-5.1); SODIUM 136 MMOL/L (136-145)
--- NOTE | 2020-02-16 11:44 | Urology Progress Note ---
Assessment/Plan Status: stable Assessment/Plan: 1. Possible left-sided hydronephrosis versus parapelvic cyst. 2. Urinary retention. 3. Neurogenic bladder. 4. Proteinuria. 5. Hematuria. 6. Pyuria. 7. Sepsis history. 8. Cystitis. monitor clinically john indwelling hand irrigated and do PRN monitor renal fxn and WBC cysto at some point on abx, per ID voiding trial later hydro likely chronic, no stones, poss UPJ obst will consider nephrostomy or ureteral stent f/u on last blood cx d/w Dr. Uribe Subjective Allergies: Coded Allergies: No Known Allergies (Unverified , 01/30/20) Subjective all noted Objective Last 24 Hour Vital Signs Date Time Temp Pulse Resp B/P (MAP) Pulse Ox O2 Delivery O2 Flow Rate FiO2 02/16/20 09:00 109 104/89 02/16/20 09:00 109 104/89 02/16/20 08:00 97.2 109 20 104/89 (94) 97 02/16/20 04:00 98.2 105 18 113/59 (77) 97 02/16/20 04:00 102 02/16/20 00:00 99.3 111 20 124/76 (92) 95 02/16/20 00:00 99 02/15/20 22:00 101 02/15/20 20:46 93 123/86 02/15/20 20:00 98.5 93 18 123/86 (98) 93 02/15/20 16:00 100 02/15/20 16:00 98.1 109 22 126/79 (95) 98 02/15/20 12:00 98.4 102 20 128/76 (93) 97 02/15/20 12:00 101 Intake and Output 02/15/20 02/16/20 19:00 07:00 Intake Total 60 ml Output Total 700 ml Balance 60 ml -700 ml Tube Feeding 60 ml Output Urine Total 700 ml # Bowel Movements 2 1 Microbiology Date/Time Source Procedure Growth Status 02/14/20 21:00 Blood Blood Culture - Preliminary NO GROWTH AFTER 24 HOURS Resulted 01/30/20 15:45 Nasal Nares MRSA Culture - Final NO METHICILLIN RESISTANT STAPH AUREUS... Complete 02/15/20 06:00 Stool Clostridium difficile Toxin Assay - Final Complete 02/11/20 14:30 Urine,Clean Catch Urine Culture - Final Enterococcus Faecium - Vre Complete 01/30/20 15:45 Rectum VRE Culture - Final NO VANCOMYCIN RESISTANT ENTEROCOCCUS ... Complete Current Medications Medications (Trade) Dose Ordered Sig/[place] Route PRN Reason Start Time Stop Time Status Last Admin Dose Admin Acetaminophen (Tylenol) 650 mg Q4H PRN GT Mild Pain/Temp > 100.5 02/09/20 14:30 03/08/20 10:29 02/10/20 22:07 Amlodipine Besylate (Norvasc) 10 mg DAILY ORAL 02/16/20 09:00 03/17/20 08:59 Aspirin (ASA) 81 mg DAILY GT 02/11/20 09:00 03/27/20 08:59 02/16/20 09:11 Atorvastatin Calcium (Lipitor) 40 mg BEDTIME ORAL 02/09/20 21:00 04/29/20 20:59 02/15/20 20:46 Barium Sulfate (Readi-Cat 2) 450 ml NOW PRN ORAL Radiology Procedure 02/15/20 09:45 02/17/20 09:38 Barium Sulfate (Varibar Honey) 250 ml NOW PRN MC RAD 02/13/20 13:45 02/16/20 13:34 Barium Sulfate (Varibar [place]) 240 ml NOW PRN MC RAD 02/13/20 13:45 02/16/20 13:34 Barium Sulfate (Varibar Pudding) 230 ml NOW PRN MC RAD 02/13/20 13:45 02/16/20 13:34 Dextrose (Dextrose 50%) 25 ml Q30M PRN IV Hypoglycemia 02/09/20 14:30 04/29/20 18:59 Dextrose (Dextrose 50%) 50 ml Q30M PRN IV Hypoglycemia 02/09/20 14:30 04/29/20 18:59 Diphenhydramine HCl (Benadryl) 25 mg Q6H PRN ORAL Itching/Pruritis 02/09/20 15:00 03/10/20 14:59 Diphenoxylate HCl/ Atropine (Lomotil) 2.5 mg Q4H PRN GT Diarrhea 02/09/20 15:00 03/08/20 14:59 Fluconazole/ Sodium Chloride 100 ml @ 100 mls/hr Q24H IV 02/14/20 22:00 02/21/20 21:59 02/15/20 22:31 Iohexol (OMNIPAQUE-300 100ml) 100 ml NOW PRN INJ Radiology Procedure 02/15/20 09:45 02/17/20 09:38 Iron Sucrose 100 mg/Sodium Chloride 60 ml @ 240 mls/hr BEDTIME IV 02/14/20 21:00 02/18/20 21:14 02/15/20 20:51 Levothyroxine Sodium (Synthroid) 25 mcg DAILY@0630 ORAL 02/10/20 06:30 03/01/20 06:29 02/16/20 05:32 Linezolid 300 ml @ 300 mls/hr EVERY 12 HOURS IVPB 02/14/20 19:30 02/21/20 19:29 02/16/20 09:10 Loperamide HCl (Imodium) 2 mg Q3H PRN NG Diarrhea 02/10/20 12:45 03/11/20 12:44 Meropenem 1 gm/ Sodium Chloride 55 ml @ 110 mls/hr Q12H IVPB 02/15/20 14:00 02/20/20 13:59 02/16/20 02:33 Metoprolol Tartrate (Lopressor) 37.5 mg Q12HR GT 02/15/20 21:00 05/13/20 08:59 02/15/20 20:46 Ondansetron HCl (Zofran) 4 mg Q6H PRN IVP Nausea & Vomiting 02/09/20 15:00 02/29/20 14:59 Vancomycin HCl (Firvanq) 125 mg FOUR TIMES A DAY ORAL 02/15/20 13:00 02/22/20 12:59 02/16/20 09:10 Laboratory Tests 02/15/20 17:00: Activated Partial Thromboplast Time 33 02/16/20 10:30: White Blood Count 21.2H, Red Blood Count 2.87L, Hemoglobin 7.8L, Hematocrit 23.4L, Mean Corpuscular Volume 82, Mean Corpuscular Hemoglobin 27.1, Mean Corpuscular Hemoglobin Concent 33.2, Red Cell Distribution Width 13.9, Platelet Count 397, Mean Platelet Volume 6.4L, Neutrophils (%) (Auto) , Lymphocytes (%) ( Auto) , Monocytes (%) (Auto) , Eosinophils (%) (Auto) , Basophils (%) (Auto) , Neutrophils % (Manual) [Pending], Lymphocytes % (Manual) [Pending], Platelet Estimate [Pending], Platelet Morphology [Pending], Sodium Level 136, Potassium Level 3.4L, Chloride Level 103, Carbon Dioxide Level 24, Anion Gap 9, Blood Urea Nitrogen 13, Creatinine 0.9, Estimat Glomerular Filtration Rate > 60, Glucose Level 188H, Calcium Level 7.9L Height (Feet): 5 Height (Inches): 2.00 Weight (Pounds): 127 Objective exam stable renal u/s (02/11) noted CT A/P with IV contrast (02/14) noted Timothy Leos MD Feb 16, 2020 11:43
[2020-02-16 12:00] VITALS: BP 132/76
--- NOTE | 2020-02-16 14:55 | Surgery Progress Note ---
Surgery Progress Note Subjective Additional Comments no acute evetns labs noted exam stable ill appearing Objective Last 24 Hour Vital Signs Date Time Temp Pulse Resp B/P (MAP) Pulse Ox O2 Delivery O2 Flow Rate FiO2 02/16/20 12:00 97.0 104 18 132/76 (94) 93 02/16/20 12:00 105 02/16/20 09:00 109 104/89 02/16/20 09:00 109 104/89 02/16/20 08:00 97.2 109 20 104/89 (94) 97 02/16/20 08:00 103 02/16/20 04:00 98.2 105 18 113/59 (77) 97 02/16/20 04:00 102 02/16/20 00:00 99.3 111 20 124/76 (92) 95 02/16/20 00:00 99 02/15/20 22:00 101 02/15/20 20:46 93 123/86 02/15/20 20:00 98.5 93 18 123/86 (98) 93 02/15/20 16:00 100 02/15/20 16:00 98.1 109 22 126/79 (95) 98 I&O Intake and Output 02/15/20 02/16/20 19:00 07:00 Intake Total 60 ml Output Total 700 ml Balance 60 ml -700 ml Tube Feeding 60 ml Output Urine Total 700 ml # Bowel Movements 2 1 Dressing: saturated Wound: other Drains: other Cardiovascular: RSR Respiratory: decreased breath sounds Abdomen: soft, non-tender, present bowel sounds Extremities: no cyanosis Laboratory Tests Test 02/15/20 17:00 02/16/20 10:30 Activated Partial Thromboplast Time 33 SEC (23-33) White Blood Count 21.2 K/UL (4.8-10.8) H Red Blood Count 2.87 M/UL (4.20-5.40) L Hemoglobin 7.8 G/DL (12.0-16.0) L Hematocrit 23.4 % (37.0-47.0) L Mean Corpuscular Volume 82 FL (80-99) Mean Corpuscular Hemoglobin 27.1 PG (27.0-31.0) Mean Corpuscular Hemoglobin Concent 33.2 G/DL (32.0-36.0) Red Cell Distribution Width 13.9 % (11.6-14.8) Platelet Count 397 K/UL (150-450) Mean Platelet Volume 6.4 FL (6.5-10.1) L Neutrophils (%) (Auto) % (45.0-75.0) Lymphocytes (%) (Auto) % (20.0-45.0) Monocytes (%) (Auto) % (1.0-10.0) Eosinophils (%) (Auto) % (0.0-3.0) Basophils (%) (Auto) % (0.0-2.0) Differential Total Cells Counted 100 Neutrophils % (Manual) 93 % (45-75) H Lymphocytes % (Manual) 5 % (20-45) L Monocytes % (Manual) 2 % (1-10) Eosinophils % (Manual) 0 % (0-3) Basophils % (Manual) 0 % (0-2) Band Neutrophils 0 % (0-8) Platelet Estimate Adequate Platelet Morphology Normal Hypochromasia 1+ Sodium Level 136 MMOL/L (136-145) Potassium Level 3.4 MMOL/L (3.5-5.1) L Chloride Level 103 MMOL/L (98-107) Carbon Dioxide Level 24 MMOL/L (21-32) Anion Gap 9 mmol/L (5-15) Blood Urea Nitrogen 13 mg/dL (7-18) Creatinine 0.9 MG/DL (0.55-1.30) Estimat Glomerular Filtration Rate > 60 mL/min (>60) Glucose Level 188 MG/DL (74-106) H Calcium Level 7.9 MG/DL (8.5-10.1) L Magnesium Level 1.8 MG/DL (1.8-2.4) Plan Problems: (1) Septic shock Assessment & Plan: Patient presented to emergency department with sepsis hypotension tachycardia lactic acidosis leukocytosis. On IV antibiotics Labs improving IV hydration Continue tube feeds advance goal as tolerated Abdominal exam does elicit patient to retract a bit but she is not tender peritonitis or without rebound or significant guarding. exam improved Likely startle effect rather than intra-abdominal pathology will follow with serial exams continue with current care plan thank you for let me participate in patient's care leukocytosis. c diff negative. blood cultures noted abx as per ID Severe left hydronephrosis versus parapelvic cysts. No definite obstructing stone. Mild bladder wall thickening with small gas foci in the bladder, concerning for cystitis. Please correlate with urinalysis. Acute NSTEMI with peak troponin 31 as per cardiology wbc fever micro worsening leukocytosis -Small bilateral pleural effusions with passive atelectasis and lung base motion artifact. -Pacer device leads in the heart. -Tovar catheter in the decompressed urinary bladder. - No urolithiasis seen. -Consider left renal collecting system infection/UTI/pyelonephritis in the proper context given moderate left perinephric stranding which is asymmetric compared with the right. -Similar to prior study left inferior renal moiety moderate hydronephrosis without visualized cause. 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 -If there is further desire to evaluate collecting system dilation, consider repeating the study with CT hematuria protocol. -Sacral decubitus ulcer, correlate with presentation. - Rapid transit of contrast through the GI tract could be incidental or could be seen with an infectious or inflammatory enteritis. -Indeterminate left adrenal 2.1 cm enhancing nodule, if felt to alter clinical management consider additional evaluation adrenal gland. CONSIDER correlation with prior imaging studies. -Right renal cortical scarring due to old infectious or ischemic insults. -Atherosclerotic vascular disease. - Hysterectomy. -Unchanged osteopenia and degenerative spine findings. Unchanged old right possible lesser trochanter fracture versus extensive right hip capsular calcifications. (2) Decubitus skin ulcer Assessment & Plan: 84-year-old female presented on admission with multiple decubitus skin ulcers and skin concerns. Patient identified to have a unstageable sacral lower back decubitus ulcer, periwound maceration, area of necrotic eschar soft, no drainage, no abscess, no foul odor Pt presented on admission with contractures, Multiple Pressure injuries.open DTPI sacrum.Wound is open at sacrococcygeal area(40%), with soft necrotic base ( L)5.5cm x (W)4.5cm. Surrounding base of wound is maroon and indurated. Total area of sacral DTPI measures(L) 12.5cm x (W)15cm. Non-blanching erythema periwound.In addition several small partial thickness wounds noted along Perineum.` Areas of hyperpigmentation noted to L and R trochanteric. Full thickness wound R knee.(L)1.1cm x (W)1.5cm.1 Base of wound 90% pink granulation,10% slough noted in center of wound. Borders are macerated.small amt serous exudate. No odor noted. No erythema or fluctuance noted periwound. Non-blanching erythema with fluctuance R heel. Unstageable pressure injury R hallux. Base of wound is 100% soft necrosis. Edges adherent and dry.No odor or exudate noted.Surrounding darker skin tone without erythema or fluctuance(L)2.6cm x (W)3cm. DTPI R Ankle(L)0.9cm x (W)1.6cm. Base of wound is fluctuant, maroon with marginal erythema. Periwound without erythema or fluctuance. Unstageable pressure injury distal/lateral R foot. Base of wound 100% soft necrosis with surrounding non-blanching erythema with fluctuance.(L)2cm x (W) 0.9cm. Stable dry eschar medial/lateral R foot (L)0.4cm x (W)0.8cm. Stable dry eschar lateral L heel.(L)1.9cm x (W)2.2cm. No erythema or fluctuance periwound. Unstable pressure injury medial/lateral L foot. Base of wound is 100% necrotic but dry.(L)0.7cm x (W)0.8cm. Unstageable pressure injury distal/lateral L foot. Base of wound is 100% necrotic but dry. (L)1.2cm x (W)1.6cm.non-blanching erythema without fluctuance periwound. Non-blanching erythema without fluctuance lateral L 5th metatarsal.(L)1.5cm x (W )0.5cm. Open DTPI L Hallux.Base of wound has mixed necrosis and slough with surrounding base of wound maroon with fluctuance. Non-blanching erythema without elevation in skin temp,or fluctuance periwound. Tx.plan: Cleanse Sacral wound with Saline. Apply TheraHoney. Apply Moisture Barrier Paste Periwound. Cover with Optifoam drsg. Change Daily and prn. Swab R nee with Betadine. Cover with Optifoam drsg every 3 days and prn. Swab wounds R foot with Betadine. Cover each wound with Optifoam drsg. Change every 3 days and prn. Swab wounds L foot with Betadine. Cover each wound with Optifoam drsg. Change every 3 days and prn. Reposition at least every 2hours or as tolerated. Place pillow between knees. Off-load heels with Pillow. APM/ARIEL Mattress. DAILY ESTIMATED NEEDS: Needs based on Wounds, underweight 50kg 30-35 kcals/kg 1113-0065 total kcals 1.25-2 g protein/kg 63-100 g total protein 25-30 mL/kg 2542-0867 total fluid mLs NUTRITION DIAGNOSIS: Increased kcal and pro needs r/t underweight status and wound healing as evidenced by pt @85% [place] Body Weight w/ multiple wounds, eval pending, pt is PEG dep. CURRENT TF:Glucerna 1.5 @60ml x20 hrs ENTERAL NUTRITION RECOMMENDATIONS: Maintain current TF as tolerated: Glucerna 1.5 @60ml/hr x20 hrs to provide 1200ml, 1800 kcal, 99g pro, 911ml free H2o -> Monitor for hypoglycemia and need to change to non carb control formula -> Flush per MD. HOB over 30 degrees ADDITIONAL RECOMMENDATIONS: 1) On iso, per SNF pt is: 65 inches + 110#/50kg 2) Wound care: add MATT in 4oz H2O BID via GT F/up w/ WC eval 3) Maintain calibrated bed scale wts 4) Monitor for continued hypoglycemic events, need for D5 or TF change Luther Mercedes Feb 16, 2020 14:55
--- NOTE | 2020-02-16 15:13 | Cardiac Electrophysiology PN ---
Assessment/Plan Assessment/Plan 1. Status post right-sided [facility] DDD pacer implantation. Interrogation showed No Pacer Mediated tachycardia Just sinus tach likely due to acute UT with peak troponin 31. Continue Lopressor 2. Acute NSTEMI with peak troponin 31. Down to 2. Non verbal. Continue aspirin, Lopressor and Lipitor. Repeat Echo on 02/11/20 EF 40-45% 3. Diabetes. 4. Hypertension, on Toprol 25 daily. 5. Status post septic shock. WBC increased to 27 K. On iv Abx per Dr Naylor 6. Severe anemia. Hemoglobin improved from 7.5 to 9.4. 7. Dementia. 8. CVA. 10. COPD. 11. ARF and possible hydrnephrosis, Cr now normal. 12. S/P PEG placement. LAKIA RN and Dr. Uribe Subjective Subjective Nonverbal responsive in sinus with V tracking at around 100-110. Comfortable in NAD.Troponin level down to 2. Objective Last 24 Hour Vital Signs Date Time Temp Pulse Resp B/P (MAP) Pulse Ox O2 Delivery O2 Flow Rate FiO2 02/16/20 12:00 97.0 104 18 132/76 (94) 93 02/16/20 12:00 105 02/16/20 09:00 109 104/89 02/16/20 09:00 109 104/89 02/16/20 08:00 97.2 109 20 104/89 (94) 97 02/16/20 08:00 103 02/16/20 04:00 98.2 105 18 113/59 (77) 97 02/16/20 04:00 102 02/16/20 00:00 99.3 111 20 124/76 (92) 95 02/16/20 00:00 99 02/15/20 22:00 101 02/15/20 20:46 93 123/86 02/15/20 20:00 98.5 93 18 123/86 (98) 93 02/15/20 16:00 100 02/15/20 16:00 98.1 109 22 126/79 (95) 98 Intake and Output 02/15/20 02/16/20 19:00 07:00 Intake Total 60 ml Output Total 700 ml Balance 60 ml -700 ml Tube Feeding 60 ml Output Urine Total 700 ml # Bowel Movements 2 1 Laboratory Tests Test 02/15/20 17:00 02/16/20 10:30 Activated Partial Thromboplast Time 33 SEC (23-33) White Blood Count 21.2 K/UL (4.8-10.8) H Red Blood Count 2.87 M/UL (4.20-5.40) L Hemoglobin 7.8 G/DL (12.0-16.0) L Hematocrit 23.4 % (37.0-47.0) L Mean Corpuscular Volume 82 FL (80-99) Mean Corpuscular Hemoglobin 27.1 PG (27.0-31.0) Mean Corpuscular Hemoglobin Concent 33.2 G/DL (32.0-36.0) Red Cell Distribution Width 13.9 % (11.6-14.8) Platelet Count 397 K/UL (150-450) Mean Platelet Volume 6.4 FL (6.5-10.1) L Neutrophils (%) (Auto) % (45.0-75.0) Lymphocytes (%) (Auto) % (20.0-45.0) Monocytes (%) (Auto) % (1.0-10.0) Eosinophils (%) (Auto) % (0.0-3.0) Basophils (%) (Auto) % (0.0-2.0) Differential Total Cells Counted 100 Neutrophils % (Manual) 93 % (45-75) H Lymphocytes % (Manual) 5 % (20-45) L Monocytes % (Manual) 2 % (1-10) Eosinophils % (Manual) 0 % (0-3) Basophils % (Manual) 0 % (0-2) Band Neutrophils 0 % (0-8) Platelet Estimate Adequate Platelet Morphology Normal Hypochromasia 1+ Sodium Level 136 MMOL/L (136-145) Potassium Level 3.4 MMOL/L (3.5-5.1) L Chloride Level 103 MMOL/L (98-107) Carbon Dioxide Level 24 MMOL/L (21-32) Anion Gap 9 mmol/L (5-15) Blood Urea Nitrogen 13 mg/dL (7-18) Creatinine 0.9 MG/DL (0.55-1.30) Estimat Glomerular Filtration Rate > 60 mL/min (>60) Glucose Level 188 MG/DL (74-106) H Calcium Level 7.9 MG/DL (8.5-10.1) L Magnesium Level 1.8 MG/DL (1.8-2.4) Microbiology Date/Time Source Procedure Growth Status 02/14/20 21:00 Blood Blood Culture - Preliminary NO GROWTH AFTER 24 HOURS Resulted 02/14/20 20:45 Blood Blood Culture - Preliminary NO GROWTH AFTER 24 HOURS Resulted 02/15/20 06:00 Stool Clostridium difficile Toxin Assay - Final Complete Objective HEAD AND NECK: Shows no JVD. LUNGS: Coarse rhonchi. CARDIOVASCULAR: Regular S1 and S2. Pacemaker is in the right subclavian. ABDOMEN: Soft.PEG in place EXTREMITIES: Contracted. Oscar Corley MD Feb 16, 2020 15:13
[2020-02-16 16:00] VITALS: BP 130/70
--- NOTE | 2020-02-16 16:18 | Infectious Diseases Prog Note ---
Assessment/Plan Assessment/Plan A) 1) citrobacter bacteremia, likely source, CT noted, sepsis, leukocytosis worse, vre/enterococcus uti, fungemia risk - f/u CT noted, c/w hydronephrosis and pyelonephritis - c.diff. - negative - leukocytosis better today - blood cultures - negative 2) covid testing - negative 3) dm, hyperlipidemia, ? htn, hypothyroidism, cva, anemia, hemiplegia, ckd, gerd , copd, chf, ppm 4) allergies - nkda, fh-nc, sh-negative, mar noted, notes and records noted 5) d/w RN P) 1) meropenem, zyvox, diflucan, d/c po vancomycin 2) recheck cultures for worsening leukocytosis 3) CT abdomen and pelvis - severe hydronephrosis and cystitis, no abscess 4) monitor labs, leukocytosis 5) c.diff. negative 6) urology f/u 7) will f/u 8) d/w Dr. Uribe Subjective Constitutional: Reports: fatigue; Denies: fever HEENT: Denies: congestion Respiratory: Denies: shortness of breath Cardiovascular: Denies: chest pain Gastrointestinal/Abdominal: Reports: diarrhea; Denies: nausea, vomiting Genitourinary: Reports: other - + john Neurologic: Denies: headache Psychiatric: Denies: depression Skin: Denies: rash Hematologic: Denies: bleeding Musculoskeletal: Denies: pain Allergies: Coded Allergies: No Known Allergies (Unverified , 01/30/20) Objective Vital Signs Last 24 Hour Vital Signs Date Time Temp Pulse Resp B/P (MAP) Pulse Ox O2 Delivery O2 Flow Rate FiO2 02/16/20 12:00 97.0 104 18 132/76 (94) 93 02/16/20 12:00 105 02/16/20 09:00 109 104/89 02/16/20 09:00 109 104/89 02/16/20 08:00 97.2 109 20 104/89 (94) 97 02/16/20 08:00 103 02/16/20 04:00 98.2 105 18 113/59 (77) 97 02/16/20 04:00 102 02/16/20 00:00 99.3 111 20 124/76 (92) 95 02/16/20 00:00 99 02/15/20 22:00 101 02/15/20 20:46 93 123/86 02/15/20 20:00 98.5 93 18 123/86 (98) 93 Height (Feet): 5 Height (Inches): 2.00 Weight (Pounds): 127 General Appearance: no acute distress HEENT: normocephalic, atraumatic, anicteric, mucous membranes moist Respiratory/Chest: crackles/rales, rhonchi - bilaterally Cardiovascular: normal rate, regular rhythm, no gallop/murmur, no JVD Abdomen: normal bowel sounds, soft, non tender, no organomegaly Genitourinary: other - + john Extremities: no cyanosis Skin: no rash 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 The heart size is normal. There is a right chest biventricular pacemaker Impression: No acute process CT abdomen and pelvis: IMPRESSION: 1. Examination is limited by motion artifact. 2. Trace left pleural effusion. 3. Severe left hydronephrosis versus parapelvic cysts. No definite obstructing stone. 4. Mild bladder wall thickening with small gas foci in the bladder, concerning for cystitis. Please correlate with urinalysis. CT ABDOMEN + PELVIS With Contrast: Prior 02/09/2020 Impression -Small bilateral pleural effusions with passive atelectasis and lung base motion artifact. -Pacer device leads in the heart. -John catheter in the decompressed urinary bladder. - No urolithiasis seen. -Consider left renal collecting system infection/UTI/pyelonephritis in the proper context given moderate left perinephric stranding which is asymmetric compared with the right. -Similar to prior study left inferior renal moiety moderate hydronephrosis without visualized cause. 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 -If there is further desire to evaluate collecting system dilation, consider repeating the study with CT hematuria protocol. -Sacral decubitus ulcer, correlate with presentation. - Rapid transit of contrast through the GI tract could be incidental or could be seen with an infectious or inflammatory enteritis. -Indeterminate left adrenal 2.1 cm enhancing nodule, if felt to alter clinical management consider additional evaluation adrenal gland. CONSIDER correlation with prior imaging studies. -Right renal cortical scarring due to old infectious or ischemic insults. -Atherosclerotic vascular disease. - Hysterectomy. -Unchanged osteopenia and degenerative spine findings. Unchanged old right possible lesser trochanter fracture versus extensive right hip capsular calcifications. Procedure: XRAY Chest 1v - 02/15/20- Indication: Dyspnea Comparison: 02/11/2020 A single view chest radiograph was obtained. Findings: No definite infiltrate or pulmonary vascular congestion identified. The heart is enlarged. The aorta is mildly enlarged consistent with atherosclerotic vascular disease. The bones are osteopenic. There are thoracic vertebral enthesophytes at multiple levels. Pacemaker noted on the right. Impression: No acute disease Microbiology Date/Time Source Procedure Growth Status 02/14/20 21:00 Blood Blood Culture - Preliminary NO GROWTH AFTER 24 HOURS Resulted 02/14/20 20:45 Blood Blood Culture - Preliminary NO GROWTH AFTER 24 HOURS Resulted 02/15/20 06:00 Stool Clostridium difficile Toxin Assay - Final Complete Laboratory Tests Test 02/15/20 17:00 02/16/20 10:30 Activated Partial Thromboplast Time 33 SEC (23-33) White Blood Count 21.2 K/UL (4.8-10.8) H Red Blood Count 2.87 M/UL (4.20-5.40) L Hemoglobin 7.8 G/DL (12.0-16.0) L Hematocrit 23.4 % (37.0-47.0) L Mean Corpuscular Volume 82 FL (80-99) Mean Corpuscular Hemoglobin 27.1 PG (27.0-31.0) Mean Corpuscular Hemoglobin Concent 33.2 G/DL (32.0-36.0) Red Cell Distribution Width 13.9 % (11.6-14.8) Platelet Count 397 K/UL (150-450) Mean Platelet Volume 6.4 FL (6.5-10.1) L Neutrophils (%) (Auto) % (45.0-75.0) Lymphocytes (%) (Auto) % (20.0-45.0) Monocytes (%) (Auto) % (1.0-10.0) Eosinophils (%) (Auto) % (0.0-3.0) Basophils (%) (Auto) % (0.0-2.0) Differential Total Cells Counted 100 Neutrophils % (Manual) 93 % (45-75) H Lymphocytes % (Manual) 5 % (20-45) L Monocytes % (Manual) 2 % (1-10) Eosinophils % (Manual) 0 % (0-3) Basophils % (Manual) 0 % (0-2) Band Neutrophils 0 % (0-8) Platelet Estimate Adequate Platelet Morphology Normal Hypochromasia 1+ Sodium Level 136 MMOL/L (136-145) Potassium Level 3.4 MMOL/L (3.5-5.1) L Chloride Level 103 MMOL/L (98-107) Carbon Dioxide Level 24 MMOL/L (21-32) Anion Gap 9 mmol/L (5-15) Blood Urea Nitrogen 13 mg/dL (7-18) Creatinine 0.9 MG/DL (0.55-1.30) Estimat Glomerular Filtration Rate > 60 mL/min (>60) Glucose Level 188 MG/DL (74-106) H Calcium Level 7.9 MG/DL (8.5-10.1) L Magnesium Level 1.8 MG/DL (1.8-2.4) Current Medications Medications (Trade) Dose Ordered Sig/More[place] Route PRN Reason Start Time Stop Time Status Last Admin Dose Admin Acetaminophen (Tylenol) 650 mg Q4H PRN GT Mild Pain/Temp > 100.5 02/09/20 14:30 03/08/20 10:29 02/10/20 22:07 Amlodipine Besylate (Norvasc) 10 mg DAILY ORAL 02/16/20 09:00 03/17/20 08:59 Aspirin (ASA) 81 mg DAILY GT 02/11/20 09:00 03/27/20 08:59 02/16/20 09:11 Atorvastatin Calcium (Lipitor) 40 mg BEDTIME ORAL 02/09/20 21:00 04/29/20 20:59 02/15/20 20:46 Barium Sulfate (Readi-Cat 2) 450 ml NOW PRN ORAL Radiology Procedure 02/15/20 09:45 02/17/20 09:38 Dextrose (Dextrose 50%) 25 ml Q30M PRN IV Hypoglycemia 02/09/20 14:30 04/29/20 18:59 Dextrose (Dextrose 50%) 50 ml Q30M PRN IV Hypoglycemia 02/09/20 14:30 04/29/20 18:59 Diphenhydramine HCl (Benadryl) 25 mg Q6H PRN ORAL Itching/Pruritis 02/09/20 15:00 03/10/20 14:59 Diphenoxylate HCl/ Atropine (Lomotil) 2.5 mg Q4H PRN GT Diarrhea 02/09/20 15:00 03/08/20 14:59 Fluconazole/ Sodium Chloride 100 ml @ 100 mls/hr Q24H IV 02/14/20 22:00 02/21/20 21:59 02/15/20 22:31 Iohexol (OMNIPAQUE-300 100ml) 100 ml NOW PRN INJ Radiology Procedure 02/15/20 09:45 02/17/20 09:38 Iron Sucrose 100 mg/Sodium Chloride 60 ml @ 240 mls/hr BEDTIME IV 02/14/20 21:00 02/18/20 21:14 02/15/20 20:51 Levothyroxine Sodium (Synthroid) 25 mcg DAILY@0630 ORAL 02/10/20 06:30 03/01/20 06:29 02/16/20 05:32 Linezolid 300 ml @ 300 mls/hr EVERY 12 HOURS IVPB 02/14/20 19:30 02/21/20 19:29 02/16/20 09:10 Loperamide HCl (Imodium) 2 mg Q3H PRN NG Diarrhea 02/10/20 12:45 03/11/20 12:44 Meropenem 1 gm/ Sodium Chloride 55 ml @ 110 mls/hr Q12H IVPB 02/15/20 14:00 02/20/20 13:59 02/16/20 13:18 Metoprolol Tartrate (Lopressor) 37.5 mg Q12HR GT 02/15/20 21:00 05/13/20 08:59 02/15/20 20:46 Ondansetron HCl (Zofran) 4 mg Q6H PRN IVP Nausea & Vomiting 02/09/20 15:00 02/29/20 14:59 Abiodun Jacobo MD Feb 16, 2020 16:18
[2020-02-16 20:00] VITALS: BP 134/73
--- NOTE | 2020-02-16 20:23 | Nephrology Progress Note ---
Assessment/Plan Plan #hypernatremia due to free water deficit of close to 3L-improved #sepsis due to Citrobacter bacteremia #h/o CVA with hemiplegia #DM #COPD # hyperlipidemia #hypothyroidism # GERD # unspecified CHF, S/p PPM # possible hydronephrosis on CT -> monitor off IVF -> monitor for ANGELICA - decreased free water flushes to 200 q6hr - K repleted - monitor bmp daily - continue abx - avoid nephrotoxins - strict I&Os - daily weights - monitor lytes - urology eval - consider CT with IV contrast - monitor Cr closely Subjective Subjective WBC 21 CT abd/pelvis w con done on 02/14 sodium 136 K 3.4 repleted Renal US: Impression: Moderate to severe left hydronephrosis versus parapelvic cysts mimicking hydronephrosis, versus combination of both. This also described on recent CT scan Atrophic right kidney. Mild right renal collecting system fullness, significance/etiology uncertain Objective Objective Last 24 Hour Vital Signs Date Time Temp Pulse Resp B/P (MAP) Pulse Ox O2 Delivery O2 Flow Rate FiO2 02/16/20 16:00 97.2 92 20 130/70 (90) 93 02/16/20 16:00 91 02/16/20 12:00 97.0 104 18 132/76 (94) 93 02/16/20 12:00 105 02/16/20 09:00 109 104/89 02/16/20 09:00 109 104/89 02/16/20 08:00 97.2 109 20 104/89 (94) 97 02/16/20 08:00 103 02/16/20 04:00 98.2 105 18 113/59 (77) 97 02/16/20 04:00 102 02/16/20 00:00 99.3 111 20 124/76 (92) 95 02/16/20 00:00 99 02/15/20 22:00 101 02/15/20 20:46 93 123/86 Intake and Output 02/15/20 02/16/20 19:00 07:00 Intake Total 60 ml Output Total 700 ml Balance 60 ml -700 ml Tube Feeding 60 ml Output Urine Total 700 ml # Bowel Movements 2 1 Laboratory Tests 02/16/20 10:30: White Blood Count 21.2H, Red Blood Count 2.87L, Hemoglobin 7.8L, Hematocrit 23.4L, Mean Corpuscular Volume 82, Mean Corpuscular Hemoglobin 27.1, Mean Corpuscular Hemoglobin Concent 33.2, Red Cell Distribution Width 13.9, Platelet Count 397, Mean Platelet Volume 6.4L, Neutrophils (%) (Auto) , Lymphocytes (%) ( Auto) , Monocytes (%) (Auto) , Eosinophils (%) (Auto) , Basophils (%) (Auto) , Differential Total Cells Counted 100, Neutrophils % (Manual) 93H, Lymphocytes % (Manual) 5L, Monocytes % (Manual) 2, Eosinophils % (Manual) 0, Basophils % ( Manual) 0, Band Neutrophils 0, Platelet Estimate Adequate, Platelet Morphology Normal, Hypochromasia 1+, Sodium Level 136, Potassium Level 3.4L, Chloride Level 103, Carbon Dioxide Level 24, Anion Gap 9, Blood Urea Nitrogen 13, Creatinine 0.9, Estimat Glomerular Filtration Rate > 60, Glucose Level 188H, Calcium Level 7.9L, Magnesium Level 1.8 Height (Feet): 5 Height (Inches): 2.00 Weight (Pounds): 127 Objective General Appearance: NAD, otherwise awake, alert, confused Neck: normal alignment, supple CV: RRR Respiratory: lungs clear, normal breath sounds, no respiratory distress Abdomen: non tender, soft, +PEG tube, c/d/i Ext: Contracted bilaterally, multiple abrasions wrapped in bandages C/D/I Cathy Fuller M.D. Feb 16, 2020 20:23
[2020-02-16] MEDS: Atorvastatin 20mg tab ORAL SCH (20:55)
[2020-02-16] MEDS: Iron Sucrose 100 MG in NS 55 ML IV SCH (21:00)
--- NOTE | 2020-02-16 21:00 | Neurology Progress Note ---
Interim History Interim History ROS Limited/Unobtainable: Yes - pt aphasic Interim History non verbal, worse wbc Objective Physical Exam Last Vital Signs Date Time Temp Pulse Resp B/P (MAP) Pulse Ox O2 Delivery O2 Flow Rate FiO2 02/16/20 20:56 94 134/73 02/16/20 16:00 97.2 20 93 02/13/20 21:00 Room Air 02/09/20 04:00 2.0 02/07/20 19:19 28 Laboratory Tests Test 02/16/20 10:30 White Blood Count 21.2 K/UL (4.8-10.8) H Red Blood Count 2.87 M/UL (4.20-5.40) L Hemoglobin 7.8 G/DL (12.0-16.0) L Hematocrit 23.4 % (37.0-47.0) L Mean Corpuscular Volume 82 FL (80-99) Mean Corpuscular Hemoglobin 27.1 PG (27.0-31.0) Mean Corpuscular Hemoglobin Concent 33.2 G/DL (32.0-36.0) Red Cell Distribution Width 13.9 % (11.6-14.8) Platelet Count 397 K/UL (150-450) Mean Platelet Volume 6.4 FL (6.5-10.1) L Neutrophils (%) (Auto) % (45.0-75.0) Lymphocytes (%) (Auto) % (20.0-45.0) Monocytes (%) (Auto) % (1.0-10.0) Eosinophils (%) (Auto) % (0.0-3.0) Basophils (%) (Auto) % (0.0-2.0) Differential Total Cells Counted 100 Neutrophils % (Manual) 93 % (45-75) H Lymphocytes % (Manual) 5 % (20-45) L Monocytes % (Manual) 2 % (1-10) Eosinophils % (Manual) 0 % (0-3) Basophils % (Manual) 0 % (0-2) Band Neutrophils 0 % (0-8) Platelet Estimate Adequate Platelet Morphology Normal Hypochromasia 1+ Sodium Level 136 MMOL/L (136-145) Potassium Level 3.4 MMOL/L (3.5-5.1) L Chloride Level 103 MMOL/L (98-107) Carbon Dioxide Level 24 MMOL/L (21-32) Anion Gap 9 mmol/L (5-15) Blood Urea Nitrogen 13 mg/dL (7-18) Creatinine 0.9 MG/DL (0.55-1.30) Estimat Glomerular Filtration Rate > 60 mL/min (>60) Glucose Level 188 MG/DL (74-106) H Calcium Level 7.9 MG/DL (8.5-10.1) L Magnesium Level 1.8 MG/DL (1.8-2.4) Head: normocophalic, atraumatic Neck: no rigidity EENT: benign Neurologic Exam Sensory: other - cc 35 min Objective lethargic, minimal withdraw in all 4 cc 35 min Impression/Recommendations Problems: (1) Septic shock (2) Anemia (3) Elevated troponin (4) Sepsis (5) Decubitus skin ulcer Status: stable Diagnostic Impression Acute encephalopathy in the context of sepsis Dementia, likely vascular Hx of strokes Monitor neuro exam Delirium precautions atb broad spectrum asa daily Luis Nash MD Feb 16, 2020 20:59
[2020-02-16 22:53] LABS: HEMATOCRIT 26.3 % (37.0-47.0); HEMOGLOBIN 8.6 G/DL (12.0-16.0); MEAN CORPUSCULAR VOLUME 85 FL (80-99); PLATELET COUNT 400 K/UL (150-450); RED CELL DISTRIBUTION WIDTH 15.4 % (11.6-14.8); WHITE BLOOD COUNT 21.1 K/UL (4.8-10.8)
[2020-02-17] VITALS: BP 130/87
[2020-02-17] MEDS: Meropenem 1 GM in NS 55 ML IVPB SCH ×2 (01:06→15:40)
[2020-02-17 04:00] VITALS: BP 137/90
[2020-02-17] MEDS: Levothyroxine 25mcg tab ORAL SCH (05:47)
[2020-02-17 08:00] VITALS: BP 158/74
--- NOTE | 2020-02-17 08:49 | Consultation ---
History of Present Illness General Chief Complaint: General Complaint Reason for Consultation: Hypernatremia Present Illness Allergies: Coded Allergies: No Known Allergies (Unverified , 01/30/20) Medication History Scheduled Amlodipine Besylate* (Amlodipine Besylate*), 10 MG ORAL DAILY, (Reported) Atorvastatin Calcium* (Atorvastatin Calcium*), 40 MG GT BEDTIME, (Reported) Bisacodyl (Bisacodyl), 10 MG RC DAILY, (Reported) Clonidine Hcl* (Catapres*), 0.1 MG GT EVERY 6 HOURS, (Reported) Docusate Sodium* (Docusate Sodium*), 100 MG ORAL DAILY, (Reported) Enoxaparin* (Lovenox*), 300 MG SUBQ DAILY, (Reported) Famotidine* (Pepcid 20mg tablet*), 20 MG ORAL DAILY, (Reported) Levothyroxine Sodium* (Levothyroxine Sodium*), 25 MCG GT DAILY, (Reported) Multivitamin With Minerals (Multivitamins With Minerals*), 1 TAB GT DAILY, ( Reported) Scheduled PRN Acetaminophen (Tylenol), 650 MG GT Q6H PRN for Prn Pain/Headache/Temp > 101, ( Reported) Ipratropium [place] 0.5MG/2.5ML (Ipratropium [place] 0.5MG/2.5ML), 0.5 MG HHN Q6H PRN for Shortness of Breath, (Reported) Miscellaneous Medications Lactulose (Lactulose*), 20 ML GT, (Reported) Patient History Healthcare decision maker N Resuscitation status Full Code Advanced Directive on File Physical Exam Last 24 Hour Vital Signs Date Time Temp Pulse Resp B/P (MAP) Pulse Ox O2 Delivery O2 Flow Rate FiO2 02/17/20 04:00 96 02/17/20 04:00 97.0 106 20 137/90 (106) 100 02/17/20 00:00 97.4 110 19 130/87 (101) 99 02/17/20 00:00 103 02/16/20 21:00 Room Air 02/16/20 20:56 94 134/73 02/16/20 20:00 93 02/16/20 20:00 98.4 94 19 134/73 (93) 96 02/16/20 16:00 97.2 92 20 130/70 (90) 93 02/16/20 16:00 91 02/16/20 12:00 97.0 104 18 132/76 (94) 93 02/16/20 12:00 105 02/16/20 09:00 109 104/89 02/16/20 09:00 109 104/89 Intake and Output 02/16/20 02/17/20 19:00 07:00 Intake Total 120 ml 1310 ml Output Total 500 ml 500 ml Balance -380 ml 810 ml Free Water 400 ml Tube Feeding 120 ml 660 ml Blood Product 250 ml Output Urine Total 500 ml 500 ml # Bowel Movements 3 2 Laboratory Tests Test 02/16/20 10:30 02/16/20 22:20 02/17/20 06:25 White Blood Count 21.2 K/UL (4.8-10.8) H 21.1 K/UL (4.8-10.8) H Pending Red Blood Count 2.87 M/UL (4.20-5.40) L 3.10 M/UL (4.20-5.40) L Pending Hemoglobin 7.8 G/DL (12.0-16.0) L 8.6 G/DL (12.0-16.0) L Pending Hematocrit 23.4 % (37.0-47.0) L 26.3 % (37.0-47.0) L Pending Mean Corpuscular Volume 82 FL (80-99) 85 FL (80-99) Pending Mean Corpuscular Hemoglobin 27.1 PG (27.0-31.0) 27.8 PG (27.0-31.0) Pending Mean Corpuscular Hemoglobin Concent 33.2 G/DL (32.0-36.0) 32.8 G/DL (32.0-36.0) Pending Red Cell Distribution Width 13.9 % (11.6-14.8) 15.4 % (11.6-14.8) H Pending Platelet Count 397 K/UL (150-450) 400 K/UL (150-450) Pending Mean Platelet Volume 6.4 FL (6.5-10.1) L 7.2 FL (6.5-10.1) Pending Neutrophils (%) (Auto) % (45.0-75.0) % (45.0-75.0) Pending Lymphocytes (%) (Auto) % (20.0-45.0) % (20.0-45.0) Pending Monocytes (%) (Auto) % (1.0-10.0) % (1.0-10.0) Pending Eosinophils (%) (Auto) % (0.0-3.0) % (0.0-3.0) Pending Basophils (%) (Auto) % (0.0-2.0) % (0.0-2.0) Pending Differential Total Cells Counted 100 100 Neutrophils % (Manual) 93 % (45-75) H 86 % (45-75) H Lymphocytes % (Manual) 5 % (20-45) L 7 % (20-45) L Monocytes % (Manual) 2 % (1-10) 4 % (1-10) Eosinophils % (Manual) 0 % (0-3) 0 % (0-3) Basophils % (Manual) 0 % (0-2) 0 % (0-2) Band Neutrophils 0 % (0-8) 3 % (0-8) Platelet Estimate Adequate Adequate Platelet Morphology Normal Normal Hypochromasia 1+ 1+ Sodium Level 136 MMOL/L (136-145) Pending Potassium Level 3.4 MMOL/L (3.5-5.1) L Pending Chloride Level 103 MMOL/L (98-107) Pending Carbon Dioxide Level 24 MMOL/L (21-32) Pending Anion Gap 9 mmol/L (5-15) Blood Urea Nitrogen 13 mg/dL (7-18) Pending Creatinine 0.9 MG/DL (0.55-1.30) Pending Estimat Glomerular Filtration Rate > 60 mL/min (>60) Pending Glucose Level 188 MG/DL (74-106) H Pending Calcium Level 7.9 MG/DL (8.5-10.1) L Pending Magnesium Level 1.8 MG/DL (1.8-2.4) Anisocytosis 1+ Total Bilirubin Pending Aspartate Amino Transf (AST/SGOT) Pending Alanine Aminotransferase (ALT/SGPT) Pending Alkaline Phosphatase Pending Total Protein Pending Albumin Pending Globulin Pending Height (Feet): 5 Height (Inches): 2.00 Weight (Pounds): 127 Medications Current Medications Medications (Trade) Dose Ordered Sig/[place] Route PRN Reason Start Time Stop Time Status Last Admin Dose Admin Acetaminophen (Tylenol) 650 mg Q4H PRN GT Mild Pain/Temp > 100.5 02/09/20 14:30 03/08/20 10:29 02/10/20 22:07 Amlodipine Besylate (Norvasc) 10 mg DAILY ORAL 02/16/20 09:00 03/17/20 08:59 Aspirin (ASA) 81 mg DAILY GT 02/11/20 09:00 03/27/20 08:59 02/16/20 09:11 Atorvastatin Calcium (Lipitor) 40 mg BEDTIME ORAL 02/09/20 21:00 04/29/20 20:59 02/16/20 20:55 Barium Sulfate (Readi-Cat 2) 450 ml NOW PRN ORAL Radiology Procedure 02/15/20 09:45 02/17/20 09:38 Dextrose (Dextrose 50%) 25 ml Q30M PRN IV Hypoglycemia 02/09/20 14:30 04/29/20 18:59 Dextrose (Dextrose 50%) 50 ml Q30M PRN IV Hypoglycemia 02/09/20 14:30 04/29/20 18:59 Diphenhydramine HCl (Benadryl) 25 mg Q6H PRN ORAL Itching/Pruritis 02/09/20 15:00 03/10/20 14:59 Diphenoxylate HCl/ Atropine (Lomotil) 2.5 mg Q4H PRN GT Diarrhea 02/09/20 15:00 03/08/20 14:59 Fluconazole/ Sodium Chloride 100 ml @ 100 mls/hr Q24H IV 02/14/20 22:00 02/21/20 21:59 02/16/20 22:19 Iohexol (OMNIPAQUE-300 100ml) 100 ml NOW PRN INJ Radiology Procedure 02/15/20 09:45 02/17/20 09:38 Iron Sucrose 100 mg/Sodium Chloride 60 ml @ 240 mls/hr BEDTIME IV 02/14/20 21:00 02/18/20 21:14 02/15/20 20:51 Levothyroxine Sodium (Synthroid) 25 mcg DAILY@0630 ORAL 02/10/20 06:30 03/01/20 06:29 02/17/20 05:47 Linezolid 300 ml @ 300 mls/hr EVERY 12 HOURS IVPB 02/14/20 19:30 02/21/20 19:29 02/16/20 21:10 Loperamide HCl (Imodium) 2 mg Q3H PRN NG Diarrhea 02/10/20 12:45 03/11/20 12:44 02/17/20 02:38 Meropenem 1 gm/ Sodium Chloride 55 ml @ 110 mls/hr Q12H IVPB 02/15/20 14:00 02/20/20 13:59 02/17/20 01:06 Metoprolol Tartrate (Lopressor) 37.5 mg Q12HR GT 02/15/20 21:00 05/13/20 08:59 02/16/20 20:56 Ondansetron HCl (Zofran) 4 mg Q6H PRN IVP Nausea & Vomiting 02/09/20 15:00 02/29/20 14:59 Assessment/Plan Assessment/Plan: Hematology Consultation DIPESH ROSEN: Deshaun Uribe RFC: Ongoing leukocytosis and anemia DOS: 02/15/2020 HPI 84-year-old female nonverbal brought in by EMS from her extended care facility past medical history of CVA, hemiplegia, diabetes, COPD, renal insufficiency, hyperlipidemia, hypothyroidism, GERD, CHF, and pacemaker in place who was brought into the ER for hypotension. Patient is nonverbal and therefore unable to obtain further history at this time. Patient given 300 cc of IV fluids by EMS. Patient now has blood pressure in the 90s. Since admitted, continues to display a elevated wbc and heme consulted for evaluation of blood dyscrasias. COVID-19 risk:Travel to affect: No Has patient experienced bliss: No Coronavirus symptoms experienc: Fever (T>100.4F or >38C) Coded Allergies: No Known Allergies (Unverified , 01/30/20) Patient History Reviewed Nursing Documentation: PMH: Agreed; PSxH: Agreed Social hx: no lyn Family hx: unobtainable Review of Systems All Other Systems: negative except mentioned in HPI Physical Exam Sp02 EP Interpretation: reviewed, normal General Appearance: other - Contracted elderly female nonverbal Head: normocephalic, atraumatic Neck: full range of motion, supple Resp: chest non-tender, lungs clear, normal breath sounds, speaking full sentences Cardiovascular: tachycardia Gi: non tender, soft, other - Tube in place Gu: Tovar catheter in place Psychiatric: nonverbal Skin: no rash Labs: noted Imaging: no bleeding Assessment and Recs: # Leukocytosis likely due to sepsi and citrobacter bacteremia, vre/enterococcus uti, fungemia risk --> imaging has since been reviewed --> peripheral smear is negative --> abx as per id, on meropenem, linezolid --> flow cytometry if doesn't improve by next week # Anemia likely due to iron deficiency --> ferritin is ordered, other anemia panel reviewed --> hgb trend 8.6->8.8 ==> no evidence of hemolysis is noted --> transfuse as needed # hypernatremia due to free water deficit of close to 3L-improved --> per renal # 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 Fermin Baum MD Feb 17, 2020 08:49
[2020-02-17 08:57] LABS: ALANINE AMINOTRANSFERASE 29 U/L (12-78); ALBUMIN 1.3 G/DL (3.4-5.0); ALBUMIN/GLOBULIN RATIO 0.2 (1.0-2.7); ALKALINE PHOSPHATASE 126 U/L (46-116); ANION GAP 13 mmol/L (5-15); ASPARTATE AMINO TRANSFERASE 25 U/L (15-37); BILIRUBIN,TOTAL 0.2 MG/DL (0.2-1.0); BLOOD UREA NITROGEN 17 mg/dL (7-18); CALCIUM 8.2 MG/DL (8.5-10.1); CARBON DIOXIDE 20 MMOL/L (21-32); CHLORIDE 102 MMOL/L (98-107); CREATININE 0.9 MG/DL (0.55-1.30); SODIUM 135 MMOL/L (136-145)
[2020-02-17 09:03] LABS: HEMATOCRIT 27.2 % (37.0-47.0); HEMOGLOBIN 9.3 G/DL (12.0-16.0); MEAN CORPUSCULAR VOLUME 83 FL (80-99); PLATELET COUNT 409 K/UL (150-450); RED BLOOD COUNT 3.28 M/UL (4.20-5.40); RED CELL DISTRIBUTION WIDTH 13.7 % (11.6-14.8); WHITE BLOOD COUNT 21.9 K/UL (4.8-10.8)
[2020-02-17] MEDS: Aspirin Baby 81mg GT SCH (09:13)
--- NOTE | 2020-02-17 09:36 | General Progress Note ---
Assessment/Plan Status: stable Assessment/Plan: 84 year old woman with history of CVA, hemiplegia, DM, COPD, CKD, hyperlipidemia , hypothyroidism, GERD, unspecified CHF, S/p PPM brought in from SNF with hypotension, found to be septic with leukocytosis and minimal pyuria #Sepsis #Citrobacter bacteremia #Enterococcus UTI #Yeast UTI #Left Hydronephrosis, likely chronic #Leukocytosis - remains elevated #Hypotension - resolved #Elevated lactate - resolved #diarrhea - improved #Fever - resolved -continue inpatient level of care, cardiac monitoring -COVID 19 negative -01/29 BCx +citrobacter, repeat on 02/02 BCx negative -pt w/fever on 02/10: BCx NGTD, UA + for UTI, UCx + enterococcus -c diff negative on 02/03, 02/14 -Cont.imodium, lomotil per ID -CT A/p showing possible hydro and cystitis -Renal US: Moderate to severe left hydronephrosis vs parapelvic cysts, atrophic right kidney -02/13 BCx prelim w/GPC in pairs -CT abd/pel w/contrast 02/14: Evidence of left renal infection/UTI/Mathew with perinephric stranding, left hydronephrosis, duplicated left renal collecting system, atrophic right kidney -d/w Dr. Leos: patient may need nephrostomy vs stent -ID following: zyvox, fluconazole, merrem -d/w sonTerry, , updated on POC on 02/15 #NSTEMI #HTN #HLD #Elevated BNP #S/p PPM, [facility] DDD #Sinus tachycardia -Echo 02/10: EF 40-45% -PPM interrogated: sinus tach -trop peak 31>> 8 >> 2.23 -monitor closely for evidence of fluid overload -cont. home amlodipine 10 mg -cont. medical management ASA, lipitor -increase lopressor from 37.5 to 50 BID w/hold parameters -EP, Dr. Corley, following -Cardio, Dr. Crain, following: no indication for cath at this time #Hypernatremia - resolved #Hyponatremia #Unspecified CKD #One Kidney -monitor renal function -FWF per nephro -Nephro following, recs appreciated #anemia #Thrombocytosis -downtrending, likely 2/2 to infectious process -cont. to monitor -no signs of bleeding -s/p 1 U PRBC on 02/16/20 -Heme, Dr. 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 Subjective Allergies: Coded Allergies: No Known Allergies (Unverified , 01/30/20) Subjective Follow up for NSTEMI, gram negative bacteremia, worsening leukocytosis. Pt w/decreasing hgb yesterday, no signs of bleeding, 1 U PRBC ordered. Pt aphasic, awake, alert, appears comfortable. Objective Last 24 Hour Vital Signs Date Time Temp Pulse Resp B/P (MAP) Pulse Ox O2 Delivery O2 Flow Rate FiO2 02/17/20 09:14 106 158/74 02/17/20 09:12 106 158/74 02/17/20 08:00 98.2 106 22 158/74 (102) 96 02/17/20 04:00 96 02/17/20 04:00 97.0 106 20 137/90 (106) 100 02/17/20 00:00 97.4 110 19 130/87 (101) 99 02/17/20 00:00 103 02/16/20 21:00 Room Air 02/16/20 20:56 94 134/73 02/16/20 20:00 93 02/16/20 20:00 98.4 94 19 134/73 (93) 96 02/16/20 16:00 97.2 92 20 130/70 (90) 93 02/16/20 16:00 91 02/16/20 12:00 97.0 104 18 132/76 (94) 93 02/16/20 12:00 105 Intake and Output 02/16/20 02/17/20 19:00 07:00 Intake Total 120 ml 1310 ml Output Total 500 ml 500 ml Balance -380 ml 810 ml Free Water 400 ml Tube Feeding 120 ml 660 ml Blood Product 250 ml Output Urine Total 500 ml 500 ml # Bowel Movements 3 2 Laboratory Tests 02/16/20 10:30: White Blood Count 21.2H, Red Blood Count 2.87L, Hemoglobin 7.8L, Hematocrit 23.4L, Mean Corpuscular Volume 82, Mean Corpuscular Hemoglobin 27.1, Mean Corpuscular Hemoglobin Concent 33.2, Red Cell Distribution Width 13.9, Platelet Count 397, Mean Platelet Volume 6.4L, Neutrophils (%) (Auto) , Lymphocytes (%) ( Auto) , Monocytes (%) (Auto) , Eosinophils (%) (Auto) , Basophils (%) (Auto) , Differential Total Cells Counted 100, Neutrophils % (Manual) 93H, Lymphocytes % (Manual) 5L, Monocytes % (Manual) 2, Eosinophils % (Manual) 0, Basophils % ( Manual) 0, Band Neutrophils 0, Platelet Estimate Adequate, Platelet Morphology Normal, Hypochromasia 1+, Sodium Level 136, Potassium Level 3.4L, Chloride Level 103, Carbon Dioxide Level 24, Anion Gap 9, Blood Urea Nitrogen 13, Creatinine 0.9, Estimat Glomerular Filtration Rate > 60, Glucose Level 188H, Calcium Level 7.9L, Magnesium Level 1.8 02/16/20 22:20: White Blood Count 21.1H, Red Blood Count 3.10L, Hemoglobin 8.6L, Hematocrit 26.3L, Mean Corpuscular Volume 85, Mean Corpuscular Hemoglobin 27.8, Mean Corpuscular Hemoglobin Concent 32.8, Red Cell Distribution Width 15.4H, Platelet Count 400, Mean Platelet Volume 7.2, Neutrophils (%) (Auto) , Lymphocytes (%) (Auto) , Monocytes (%) (Auto) , Eosinophils (%) (Auto) , Basophils (%) (Auto) , Differential Total Cells Counted 100, Neutrophils % ( Manual) 86H, Lymphocytes % (Manual) 7L, Monocytes % (Manual) 4, Eosinophils % ( Manual) 0, Basophils % (Manual) 0, Band Neutrophils 3, Platelet Estimate Adequate, Platelet Morphology Normal, Hypochromasia 1+, Anisocytosis 1+ 02/17/20 06:10: Ferritin [Pending] 02/17/20 06:25: White Blood Count 21.9H, Red Blood Count 3.28L, Hemoglobin 9.3L, Hematocrit 27.2L, Mean Corpuscular Volume 83, Mean Corpuscular Hemoglobin 28.5, Mean Corpuscular Hemoglobin Concent 34.3, Red Cell Distribution Width 13.7, Platelet Count 409, Mean Platelet Volume 5.8L, Neutrophils (%) (Auto) , Lymphocytes (%) ( Auto) , Monocytes (%) (Auto) , Eosinophils (%) (Auto) , Basophils (%) (Auto) , Neutrophils % (Manual) [Pending], Lymphocytes % (Manual) [Pending], Platelet Estimate [Pending], Platelet Morphology [Pending], Sodium Level 135L, Potassium Level 4.0, Chloride Level 102, Carbon Dioxide Level 20L, Anion Gap 13, Blood Urea Nitrogen 17, Creatinine 0.9, Estimat Glomerular Filtration Rate > 60, Glucose Level 131H, Calcium Level 8.2L, Total Bilirubin 0.2, Aspartate Amino Transf (AST/SGOT) 25, Alanine Aminotransferase (ALT/SGPT) 29, Alkaline Phosphatase 126H, Total Protein 6.6, Albumin 1.3L, Globulin 5.3, Albumin/ Globulin Ratio 0.2L Height (Feet): 5 Height (Inches): 2.00 Weight (Pounds): 127 Objective General Appearance: NAD, non-verbal, awake, alert, cachetic, appears comfortable in bed HEENT: NCAT, MMM, EOMi CV: RRR Respiratory: lungs clear, normal breath sounds, no respiratory distress Abdomen: non tender, soft, +PEG tube, c/d/i Ext: Contracted bilaterally, multiple abrasions wrapped in bandages C/D/I Lorna Uribe M.D. Feb 17, 2020 09:36
--- NOTE | 2020-02-17 09:47 | Urology Progress Note ---
Assessment/Plan Status: stable Assessment/Plan: 1. Possible left-sided hydronephrosis versus parapelvic cyst. 2. Urinary retention. 3. Neurogenic bladder. 4. Proteinuria. 5. Hematuria. 6. Pyuria. 7. Sepsis history. 8. Cystitis. monitor clinically john indwelling hand irrigated and do PRN monitor renal fxn and WBC cysto at some point on abx, per ID voiding trial later hydro likely chronic, no stones, poss UPJ obst will consider nephrostomy or ureteral stent f/u on last blood cx d/w ID d/w pt's family Subjective Allergies: Coded Allergies: No Known Allergies (Unverified , 01/30/20) Subjective all noted Objective Last 24 Hour Vital Signs Date Time Temp Pulse Resp B/P (MAP) Pulse Ox O2 Delivery O2 Flow Rate FiO2 02/17/20 09:14 106 158/74 02/17/20 09:12 106 158/74 02/17/20 08:00 98.2 106 22 158/74 (102) 96 02/17/20 04:00 96 02/17/20 04:00 97.0 106 20 137/90 (106) 100 02/17/20 00:00 97.4 110 19 130/87 (101) 99 02/17/20 00:00 103 02/16/20 21:00 Room Air 02/16/20 20:56 94 134/73 02/16/20 20:00 93 02/16/20 20:00 98.4 94 19 134/73 (93) 96 02/16/20 16:00 97.2 92 20 130/70 (90) 93 02/16/20 16:00 91 02/16/20 12:00 97.0 104 18 132/76 (94) 93 02/16/20 12:00 105 Intake and Output 02/16/20 02/17/20 19:00 07:00 Intake Total 120 ml 1310 ml Output Total 500 ml 500 ml Balance -380 ml 810 ml Free Water 400 ml Tube Feeding 120 ml 660 ml Blood Product 250 ml Output Urine Total 500 ml 500 ml # Bowel Movements 3 2 Microbiology Date/Time Source Procedure Growth Status 02/14/20 21:00 Blood Blood Culture - Preliminary NO GROWTH AFTER 48 HOURS Resulted 01/30/20 15:45 Nasal Nares MRSA Culture - Final NO METHICILLIN RESISTANT STAPH AUREUS... Complete 02/15/20 06:00 Stool Clostridium difficile Toxin Assay - Final Complete 02/11/20 14:30 Urine,Clean Catch Urine Culture - Final Enterococcus Faecium - Vre Complete 01/30/20 15:45 Rectum VRE Culture - Final NO VANCOMYCIN RESISTANT ENTEROCOCCUS ... Complete Current Medications Medications (Trade) Dose Ordered Sig/Moreno Route PRN Reason Start Time Stop Time Status Last Admin Dose Admin Acetaminophen (Tylenol) 650 mg Q4H PRN GT Mild Pain/Temp > 100.5 02/09/20 14:30 03/08/20 10:29 02/10/20 22:07 Amlodipine Besylate (Norvasc) 10 mg DAILY ORAL 02/16/20 09:00 03/17/20 08:59 02/17/20 09:12 Aspirin (ASA) 81 mg DAILY GT 02/11/20 09:00 03/27/20 08:59 02/17/20 09:13 Atorvastatin Calcium (Lipitor) 40 mg BEDTIME ORAL 02/09/20 21:00 04/29/20 20:59 02/16/20 20:55 Dextrose (Dextrose 50%) 25 ml Q30M PRN IV Hypoglycemia 02/09/20 14:30 04/29/20 18:59 Dextrose (Dextrose 50%) 50 ml Q30M PRN IV Hypoglycemia 02/09/20 14:30 04/29/20 18:59 Diphenhydramine HCl (Benadryl) 25 mg Q6H PRN ORAL Itching/Pruritis 02/09/20 15:00 03/10/20 14:59 Diphenoxylate HCl/ Atropine (Lomotil) 2.5 mg Q4H PRN GT Diarrhea 02/09/20 15:00 03/08/20 14:59 Fluconazole/ Sodium Chloride 100 ml @ 100 mls/hr Q24H IV 02/14/20 22:00 02/21/20 21:59 02/16/20 22:19 Iron Sucrose 100 mg/Sodium Chloride 60 ml @ 240 mls/hr BEDTIME IV 02/14/20 21:00 02/18/20 21:14 02/15/20 20:51 Levothyroxine Sodium (Synthroid) 25 mcg DAILY@0630 ORAL 02/10/20 06:30 03/01/20 06:29 02/17/20 05:47 Linezolid 300 ml @ 300 mls/hr EVERY 12 HOURS IVPB 02/14/20 19:30 02/21/20 19:29 02/17/20 09:14 Loperamide HCl (Imodium) 2 mg Q3H PRN NG Diarrhea 02/10/20 12:45 03/11/20 12:44 02/17/20 02:38 Meropenem 1 gm/ Sodium Chloride 55 ml @ 110 mls/hr Q12H IVPB 02/15/20 14:00 02/20/20 13:59 02/17/20 01:06 Metoprolol Tartrate (Lopressor) 37.5 mg Q12HR GT 02/15/20 21:00 05/13/20 08:59 02/17/20 09:14 Ondansetron HCl (Zofran) 4 mg Q6H PRN IVP Nausea & Vomiting 02/09/20 15:00 02/29/20 14:59 Laboratory Tests 02/16/20 10:30: White Blood Count 21.2H, Red Blood Count 2.87L, Hemoglobin 7.8L, Hematocrit 23.4L, Mean Corpuscular Volume 82, Mean Corpuscular Hemoglobin 27.1, Mean Corpuscular Hemoglobin Concent 33.2, Red Cell Distribution Width 13.9, Platelet Count 397, Mean Platelet Volume 6.4L, Neutrophils (%) (Auto) , Lymphocytes (%) ( Auto) , Monocytes (%) (Auto) , Eosinophils (%) (Auto) , Basophils (%) (Auto) , Differential Total Cells Counted 100, Neutrophils % (Manual) 93H, Lymphocytes % (Manual) 5L, Monocytes % (Manual) 2, Eosinophils % (Manual) 0, Basophils % ( Manual) 0, Band Neutrophils 0, Platelet Estimate Adequate, Platelet Morphology Normal, Hypochromasia 1+, Sodium Level 136, Potassium Level 3.4L, Chloride Level 103, Carbon Dioxide Level 24, Anion Gap 9, Blood Urea Nitrogen 13, Creatinine 0.9, Estimat Glomerular Filtration Rate > 60, Glucose Level 188H, Calcium Level 7.9L, Magnesium Level 1.8 02/16/20 22:20: White Blood Count 21.1H, Red Blood Count 3.10L, Hemoglobin 8.6L, Hematocrit 26.3L, Mean Corpuscular Volume 85, Mean Corpuscular Hemoglobin 27.8, Mean Corpuscular Hemoglobin Concent 32.8, Red Cell Distribution Width 15.4H, Platelet Count 400, Mean Platelet Volume 7.2, Neutrophils (%) (Auto) , Lymphocytes (%) (Auto) , Monocytes (%) (Auto) , Eosinophils (%) (Auto) , Basophils (%) (Auto) , Differential Total Cells Counted 100, Neutrophils % ( Manual) 86H, Lymphocytes % (Manual) 7L, Monocytes % (Manual) 4, Eosinophils % ( Manual) 0, Basophils % (Manual) 0, Band Neutrophils 3, Platelet Estimate Adequate, Platelet Morphology Normal, Hypochromasia 1+, Anisocytosis 1+ 02/17/20 06:10: Ferritin [Pending] 02/17/20 06:25: White Blood Count 21.9H, Red Blood Count 3.28L, Hemoglobin 9.3L, Hematocrit 27.2L, Mean Corpuscular Volume 83, Mean Corpuscular Hemoglobin 28.5, Mean Corpuscular Hemoglobin Concent 34.3, Red Cell Distribution Width 13.7, Platelet Count 409, Mean Platelet Volume 5.8L, Neutrophils (%) (Auto) , Lymphocytes (%) ( Auto) , Monocytes (%) (Auto) , Eosinophils (%) (Auto) , Basophils (%) (Auto) , Neutrophils % (Manual) [Pending], Lymphocytes % (Manual) [Pending], Platelet Estimate [Pending], Platelet Morphology [Pending], Sodium Level 135L, Potassium Level 4.0, Chloride Level 102, Carbon Dioxide Level 20L, Anion Gap 13, Blood Urea Nitrogen 17, Creatinine 0.9, Estimat Glomerular Filtration Rate > 60, Glucose Level 131H, Calcium Level 8.2L, Total Bilirubin 0.2, Aspartate Amino Transf (AST/SGOT) 25, Alanine Aminotransferase (ALT/SGPT) 29, Alkaline Phosphatase 126H, Total Protein 6.6, Albumin 1.3L, Globulin 5.3, Albumin/ Globulin Ratio 0.2L Height (Feet): 5 Height (Inches): 2.00 Weight (Pounds): 127 Objective exam stable renal u/s (02/11) noted CT A/P with IV contrast (02/14) noted Timothy Leos MD Feb 17, 2020 09:47
--- NOTE | 2020-02-17 10:26 | General Progress Note ---
Assessment/Plan Problem List: (1) Diarrhea ICD Codes: R19.7 - Diarrhea, unspecified SNOMED: 75456135 (2) GI (gastrointestinal bleed) ICD Codes: K92.2 - Gastrointestinal hemorrhage, unspecified SNOMED: 16146821 (3) Elevated troponin ICD Codes: R79.89 - Other specified abnormal findings of blood chemistry; R65.21 - Severe sepsis with septic shock SNOMED: 877899294, 378538514, 903122128 (4) Anemia ICD Codes: D64.9 - Anemia, unspecified SNOMED: 020054184 (5) Septic shock ICD Codes: A41.9 - Sepsis, unspecified organism; R65.21 - Severe sepsis with septic shock SNOMED: 56801093 Status: stable Assessment/Plan: diarrhea is better with Lomotil and Imodium neg stool C.diff ppi>>> will dc TF , Glucerna 1.2 s/p blood transfusion last week COVID >>> neg given active [facility] and stable H&H will hold GI procedures for now repeat stool ob>>> neg repeat CBC fu ID regarding ABX treatment of Pyl[place] fu repeat CT>>> reviewed>>>fu ID recs Subjective ROS Limited/Unobtainable: No Allergies: Coded Allergies: No Known Allergies (Unverified , 01/30/20) Objective Last 24 Hour Vital Signs Date Time Temp Pulse Resp B/P (MAP) Pulse Ox O2 Delivery O2 Flow Rate FiO2 02/17/20 09:14 106 158/74 02/17/20 09:12 106 158/74 02/17/20 08:00 98.2 106 22 158/74 (102) 96 02/17/20 04:00 96 02/17/20 04:00 97.0 106 20 137/90 (106) 100 02/17/20 00:00 97.4 110 19 130/87 (101) 99 02/17/20 00:00 103 02/16/20 21:00 Room Air 02/16/20 20:56 94 134/73 02/16/20 20:00 93 02/16/20 20:00 98.4 94 19 134/73 (93) 96 02/16/20 16:00 97.2 92 20 130/70 (90) 93 02/16/20 16:00 91 02/16/20 12:00 97.0 104 18 132/76 (94) 93 02/16/20 12:00 105 Intake and Output 02/16/20 02/17/20 19:00 07:00 Intake Total 120 ml 1310 ml Output Total 500 ml 500 ml Balance -380 ml 810 ml Free Water 400 ml Tube Feeding 120 ml 660 ml Blood Product 250 ml Output Urine Total 500 ml 500 ml # Bowel Movements 3 2 Laboratory Tests 02/16/20 10:30: White Blood Count 21.2H, Red Blood Count 2.87L, Hemoglobin 7.8L, Hematocrit 23.4L, Mean Corpuscular Volume 82, Mean Corpuscular Hemoglobin 27.1, Mean Corpuscular Hemoglobin Concent 33.2, Red Cell Distribution Width 13.9, Platelet Count 397, Mean Platelet Volume 6.4L, Neutrophils (%) (Auto) , Lymphocytes (%) ( Auto) , Monocytes (%) (Auto) , Eosinophils (%) (Auto) , Basophils (%) (Auto) , Differential Total Cells Counted 100, Neutrophils % (Manual) 93H, Lymphocytes % (Manual) 5L, Monocytes % (Manual) 2, Eosinophils % (Manual) 0, Basophils % ( Manual) 0, Band Neutrophils 0, Platelet Estimate Adequate, Platelet Morphology Normal, Hypochromasia 1+, Sodium Level 136, Potassium Level 3.4L, Chloride Level 103, Carbon Dioxide Level 24, Anion Gap 9, Blood Urea Nitrogen 13, Creatinine 0.9, Estimat Glomerular Filtration Rate > 60, Glucose Level 188H, Calcium Level 7.9L, Magnesium Level 1.8 02/16/20 22:20: White Blood Count 21.1H, Red Blood Count 3.10L, Hemoglobin 8.6L, Hematocrit 26.3L, Mean Corpuscular Volume 85, Mean Corpuscular Hemoglobin 27.8, Mean Corpuscular Hemoglobin Concent 32.8, Red Cell Distribution Width 15.4H, Platelet Count 400, Mean Platelet Volume 7.2, Neutrophils (%) (Auto) , Lymphocytes (%) (Auto) , Monocytes (%) (Auto) , Eosinophils (%) (Auto) , Basophils (%) (Auto) , Differential Total Cells Counted 100, Neutrophils % ( Manual) 86H, Lymphocytes % (Manual) 7L, Monocytes % (Manual) 4, Eosinophils % ( Manual) 0, Basophils % (Manual) 0, Band Neutrophils 3, Platelet Estimate Adequate, Platelet Morphology Normal, Hypochromasia 1+, Anisocytosis 1+ 02/17/20 06:10: Ferritin [Pending] 02/17/20 06:25: White Blood Count 21.9H, Red Blood Count 3.28L, Hemoglobin 9.3L, Hematocrit 27.2L, Mean Corpuscular Volume 83, Mean Corpuscular Hemoglobin 28.5, Mean Corpuscular Hemoglobin Concent 34.3, Red Cell Distribution Width 13.7, Platelet Count 409, Mean Platelet Volume 5.8L, Neutrophils (%) (Auto) , Lymphocytes (%) ( Auto) , Monocytes (%) (Auto) , Eosinophils (%) (Auto) , Basophils (%) (Auto) , Neutrophils % (Manual) [Pending], Lymphocytes % (Manual) [Pending], Platelet Estimate [Pending], Platelet Morphology [Pending], Sodium Level 135L, Potassium Level 4.0, Chloride Level 102, Carbon Dioxide Level 20L, Anion Gap 13, Blood Urea Nitrogen 17, Creatinine 0.9, Estimat Glomerular Filtration Rate > 60, Glucose Level 131H, Calcium Level 8.2L, Total Bilirubin 0.2, Aspartate Amino Transf (AST/SGOT) 25, Alanine Aminotransferase (ALT/SGPT) 29, Alkaline Phosphatase 126H, Total Protein 6.6, Albumin 1.3L, Globulin 5.3, Albumin/ Globulin Ratio 0.2L Height (Feet): 5 Height (Inches): 2.00 Weight (Pounds): 127 General Appearance: no apparent distress EENT: normal ENT inspection Neck: supple Cardiovascular: normal rate Respiratory/Chest: decreased breath sounds Abdomen: normal bowel sounds, non tender, soft Extremities: non-tender Herminio Rodriguez MD Feb 17, 2020 10:26
--- NOTE | 2020-02-17 11:53 | Nephrology Progress Note ---
Assessment/Plan Plan #hypernatremia due to free water deficit of close to 3L-improved #sepsis due to Citrobacter bacteremia #h/o CVA with hemiplegia #DM #COPD # hyperlipidemia #hypothyroidism # GERD # unspecified CHF, S/p PPM # possible hydronephrosis on CT -> monitor off IVF -> monitor for ANGELICA - amlodipine 10mg daily - decrease free water flushes to 150 q6hr - monitor bmp daily - continue abx - avoid nephrotoxins - strict I&Os - daily weights - monitor lytes - urology eval - CT with IV contrast noted - monitor Cr closely Subjective ROS Limited/Unobtainable: Yes Subjective WBC 21 CT abd/pelvis w con done on 02/14 sodium 136 K 3.4 repleted Renal US: Impression: Moderate to severe left hydronephrosis versus parapelvic cysts mimicking hydronephrosis, versus combination of both. This also described on recent CT scan Atrophic right kidney. Mild right renal collecting system fullness, significance/etiology uncertain Objective Objective Last 24 Hour Vital Signs Date Time Temp Pulse Resp B/P (MAP) Pulse Ox O2 Delivery O2 Flow Rate FiO2 02/17/20 09:14 106 158/74 02/17/20 09:12 106 158/74 02/17/20 08:00 98.2 106 22 158/74 (102) 96 02/17/20 04:00 96 02/17/20 04:00 97.0 106 20 137/90 (106) 100 02/17/20 00:00 97.4 110 19 130/87 (101) 99 02/17/20 00:00 103 02/16/20 21:00 Room Air 02/16/20 20:56 94 134/73 02/16/20 20:00 93 02/16/20 20:00 98.4 94 19 134/73 (93) 96 02/16/20 16:00 97.2 92 20 130/70 (90) 93 02/16/20 16:00 91 02/16/20 12:00 97.0 104 18 132/76 (94) 93 02/16/20 12:00 105 Intake and Output 02/16/20 02/17/20 19:00 07:00 Intake Total 120 ml 1310 ml Output Total 500 ml 500 ml Balance -380 ml 810 ml Free Water 400 ml Tube Feeding 120 ml 660 ml Blood Product 250 ml Output Urine Total 500 ml 500 ml # Bowel Movements 3 2 Laboratory Tests 02/16/20 22:20: White Blood Count 21.1H, Red Blood Count 3.10L, Hemoglobin 8.6L, Hematocrit 26.3L, Mean Corpuscular Volume 85, Mean Corpuscular Hemoglobin 27.8, Mean Corpuscular Hemoglobin Concent 32.8, Red Cell Distribution Width 15.4H, Platelet Count 400, Mean Platelet Volume 7.2, Neutrophils (%) (Auto) , Lymphocytes (%) (Auto) , Monocytes (%) (Auto) , Eosinophils (%) (Auto) , Basophils (%) (Auto) , Differential Total Cells Counted 100, Neutrophils % ( Manual) 86H, Lymphocytes % (Manual) 7L, Monocytes % (Manual) 4, Eosinophils % ( Manual) 0, Basophils % (Manual) 0, Band Neutrophils 3, Platelet Estimate Adequate, Platelet Morphology Normal, Hypochromasia 1+, Anisocytosis 1+ 02/17/20 06:10: Ferritin 1075H 02/17/20 06:25: White Blood Count 21.9H, Red Blood Count 3.28L, Hemoglobin 9.3L, Hematocrit 27.2L, Mean Corpuscular Volume 83, Mean Corpuscular Hemoglobin 28.5, Mean Corpuscular Hemoglobin Concent 34.3, Red Cell Distribution Width 13.7, Platelet Count 409, Mean Platelet Volume 5.8L, Neutrophils (%) (Auto) , Lymphocytes (%) ( Auto) , Monocytes (%) (Auto) , Eosinophils (%) (Auto) , Basophils (%) (Auto) , Neutrophils % (Manual) [Pending], Lymphocytes % (Manual) [Pending], Platelet Estimate [Pending], Platelet Morphology [Pending], Sodium Level 135L, Potassium Level 4.0, Chloride Level 102, Carbon Dioxide Level 20L, Anion Gap 13, Blood Urea Nitrogen 17, Creatinine 0.9, Estimat Glomerular Filtration Rate > 60, Glucose Level 131H, Calcium Level 8.2L, Total Bilirubin 0.2, Aspartate Amino Transf (AST/SGOT) 25, Alanine Aminotransferase (ALT/SGPT) 29, Alkaline Phosphatase 126H, Total Protein 6.6, Albumin 1.3L, Globulin 5.3, Albumin/ Globulin Ratio 0.2L Height (Feet): 5 Height (Inches): 2.00 Weight (Pounds): 127 Objective General Appearance: NAD, otherwise awake, alert, confused Neck: normal alignment, supple CV: RRR Respiratory: lungs clear, normal breath sounds, no respiratory distress Abdomen: non tender, soft, +PEG tube, c/d/i Ext: Contracted bilaterally, multiple abrasions wrapped in bandages C/D/I Cathy Fuller M.D. Feb 17, 2020 11:53
[2020-02-17 12:00] VITALS: BP 149/88
[2020-02-17 13:05] VITALS: BP 149/88
--- NOTE | 2020-02-17 13:25 | Hematology/Onc Progress Note ---
Assessment/Plan Assessment/Plan Assessment and Recs: # Leukocytosis likely due to sepsi and citrobacter bacteremia, vre/enterococcus uti, fungemia risk --> imaging has since been reviewed --> peripheral smear is negative --> abx as per id: meropenem/linezolid --> flow cytometry if doesn't improve by next week --> c diff and covid 19 negative --> wbc trend: 21.9 # Anemia likely due to iron deficiency --> ferritin is ordered, other anemia panel reviewed --> hgb trend 8.6-->8.8-->9.3 --> hgb goal greater than 7, transfuse as needed --> no evidence of hemolysis is noted --> prbc: 1 unit 02/16/2020 # hypernatremia due to free water deficit of close to 3L-improved --> per renal # 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 Subjective Allergies: Coded Allergies: No Known Allergies (Unverified , 01/30/20) Subjective 4/5 s/p 1 unit rbc, hgb 9.3, on iv iron, covid 19 negative Objective Objective Current Medications Medications (Trade) Dose Ordered Sig/[place] Route PRN Reason Start Time Stop Time Status Last Admin Dose Admin Acetaminophen (Tylenol) 650 mg Q4H PRN GT Mild Pain/Temp > 100.5 02/09/20 14:30 03/08/20 10:29 02/10/20 22:07 Amlodipine Besylate (Norvasc) 10 mg DAILY ORAL 02/16/20 09:00 03/17/20 08:59 02/17/20 09:12 Aspirin (ASA) 81 mg DAILY GT 02/11/20 09:00 03/27/20 08:59 02/17/20 09:13 Atorvastatin Calcium (Lipitor) 40 mg BEDTIME ORAL 02/09/20 21:00 04/29/20 20:59 02/16/20 20:55 Dextrose (Dextrose 50%) 25 ml Q30M PRN IV Hypoglycemia 02/09/20 14:30 04/29/20 18:59 Dextrose (Dextrose 50%) 50 ml Q30M PRN IV Hypoglycemia 02/09/20 14:30 04/29/20 18:59 Diphenhydramine HCl (Benadryl) 25 mg Q6H PRN ORAL Itching/Pruritis 02/09/20 15:00 03/10/20 14:59 Diphenoxylate HCl/ Atropine (Lomotil) 2.5 mg Q4H PRN GT Diarrhea 02/09/20 15:00 03/08/20 14:59 Fluconazole/ Sodium Chloride 100 ml @ 100 mls/hr Q24H IV 02/14/20 22:00 02/21/20 21:59 02/16/20 22:19 Iron Sucrose 100 mg/Sodium Chloride 60 ml @ 240 mls/hr BEDTIME IV 02/14/20 21:00 02/18/20 21:14 02/15/20 20:51 Levothyroxine Sodium (Synthroid) 25 mcg DAILY@0630 ORAL 02/10/20 06:30 03/01/20 06:29 02/17/20 05:47 Linezolid 300 ml @ 300 mls/hr EVERY 12 HOURS IVPB 02/14/20 19:30 02/21/20 19:29 02/17/20 09:14 Loperamide HCl (Imodium) 2 mg Q3H PRN NG Diarrhea 02/10/20 12:45 03/11/20 12:44 02/17/20 02:38 Meropenem 1 gm/ Sodium Chloride 55 ml @ 110 mls/hr Q12H IVPB 02/15/20 14:00 02/20/20 13:59 02/17/20 01:06 Metoprolol Tartrate (Lopressor) 50 mg Q12HR GT 02/17/20 21:00 05/13/20 08:59 Ondansetron HCl (Zofran) 4 mg Q6H PRN IVP Nausea & Vomiting 02/09/20 15:00 02/29/20 14:59 Last 24 Hour Vital Signs Date Time Temp Pulse Resp B/P (MAP) Pulse Ox O2 Delivery O2 Flow Rate FiO2 02/17/20 13:05 98.3 105 22 149/88 (108) 95 02/17/20 12:00 105 02/17/20 12:00 98.3 105 22 149/88 (108) 95 02/17/20 09:14 106 158/74 02/17/20 09:12 106 158/74 02/17/20 09:00 Room Air 02/17/20 08:00 98.2 106 22 158/74 (102) 96 02/17/20 08:00 92 02/17/20 04:00 96 02/17/20 04:00 97.0 106 20 137/90 (106) 100 02/17/20 00:00 97.4 110 19 130/87 (101) 99 02/17/20 00:00 103 02/16/20 21:00 Room Air 02/16/20 20:56 94 134/73 02/16/20 20:00 93 02/16/20 20:00 98.4 94 19 134/73 (93) 96 02/16/20 16:00 97.2 92 20 130/70 (90) 93 02/16/20 16:00 91 02/16/20 12:00 97.0 104 18 132/76 (94) 93 02/16/20 12:00 105 02/16/20 09:00 109 104/89 02/16/20 09:00 109 104/89 02/16/20 08:00 97.2 109 20 104/89 (94) 97 02/16/20 08:00 103 02/16/20 04:00 98.2 105 18 113/59 (77) 97 02/16/20 04:00 102 02/16/20 00:00 99.3 111 20 124/76 (92) 95 02/16/20 00:00 99 02/15/20 22:00 101 02/15/20 20:46 93 123/86 02/15/20 20:00 98.5 93 18 123/86 (98) 93 02/15/20 16:00 100 02/15/20 16:00 98.1 109 22 126/79 (95) 98 Intake and Output 02/16/20 02/17/20 19:00 07:00 Intake Total 120 ml 1310 ml Output Total 500 ml 500 ml Balance -380 ml 810 ml Free Water 400 ml Tube Feeding 120 ml 660 ml Blood Product 250 ml Output Urine Total 500 ml 500 ml # Bowel Movements 3 2 Labs Test 02/15/20 02:00 02/15/20 06:22 02/15/20 06:27 02/15/20 17:00 Urine Color Pale yellow Urine Appearance Clear Urine pH 7 (4.5-8.0) Urine Specific [place] 1.005 (1.005-1.035) Urine Protein 2+ (NEGATIVE) Urine Glucose (UA) Negative (NEGATIVE) Urine Ketones Negative (NEGATIVE) Urine Blood 1+ (NEGATIVE) Urine Nitrite Negative (NEGATIVE) Urine Bilirubin Negative (NEGATIVE) Urine Urobilinogen Normal MG/DL (0.0-1.0) Urine Leukocyte Esterase Negative (NEGATIVE) Urine RBC 0-2 /HPF (0 - 2) Urine WBC 0 /HPF (0 - 2) Urine Squamous Epithelial Cells Few /LPF (NONE/OCC) Urine Bacteria None /HPF (NONE) Troponin I 2.269 ng/mL (0.000-0.056) White Blood Count 27.4 K/UL (4.8-10.8) Red Blood Count 3.10 M/UL (4.20-5.40) Hemoglobin 8.7 G/DL (12.0-16.0) Hematocrit 25.8 % (37.0-47.0) Mean Corpuscular Volume 83 FL (80-99) Mean Corpuscular Hemoglobin 28.2 PG (27.0-31.0) Mean Corpuscular Hemoglobin Concent 33.9 G/DL (32.0-36.0) Red Cell Distribution Width 14.0 % (11.6-14.8) Platelet Count 455 K/UL (150-450) Mean Platelet Volume 5.8 FL (6.5-10.1) Neutrophils (%) (Auto) % (45.0-75.0) Lymphocytes (%) (Auto) % (20.0-45.0) Monocytes (%) (Auto) % (1.0-10.0) Eosinophils (%) (Auto) % (0.0-3.0) Basophils (%) (Auto) % (0.0-2.0) Differential Total Cells Counted 100 Neutrophils % (Manual) 95 % (45-75) Lymphocytes % (Manual) 1 % (20-45) Monocytes % (Manual) 4 % (1-10) Eosinophils % (Manual) 0 % (0-3) Basophils % (Manual) 0 % (0-2) Band Neutrophils 0 % (0-8) Platelet Estimate Increased Platelet Morphology Normal Sodium Level 133 MMOL/L (136-145) Potassium Level 3.5 MMOL/L (3.5-5.1) Chloride Level 100 MMOL/L (98-107) Carbon Dioxide Level 25 MMOL/L (21-32) Anion Gap 8 mmol/L (5-15) Blood Urea Nitrogen 20 mg/dL (7-18) Creatinine 0.8 MG/DL (0.55-1.30) Estimat Glomerular Filtration Rate > 60 mL/min (>60) Glucose Level 138 MG/DL (74-106) Calcium Level 8.1 MG/DL (8.5-10.1) Activated Partial Thromboplast Time 33 SEC (23-33) Test 02/16/20 10:30 02/16/20 22:20 02/17/20 06:10 02/17/20 06:25 White Blood Count 21.2 K/UL (4.8-10.8) 21.1 K/UL (4.8-10.8) 21.9 K/UL (4.8-10.8) Red Blood Count 2.87 M/UL (4.20-5.40) 3.10 M/UL (4.20-5.40) 3.28 M/UL (4.20-5.40) Hemoglobin 7.8 G/DL (12.0-16.0) 8.6 G/DL (12.0-16.0) 9.3 G/DL (12.0-16.0) Hematocrit 23.4 % (37.0-47.0) 26.3 % (37.0-47.0) 27.2 % (37.0-47.0) Mean Corpuscular Volume 82 FL (80-99) 85 FL (80-99) 83 FL (80-99) Mean Corpuscular Hemoglobin 27.1 PG (27.0-31.0) 27.8 PG (27.0-31.0) 28.5 PG (27.0-31.0) Mean Corpuscular Hemoglobin Concent 33.2 G/DL (32.0-36.0) 32.8 G/DL (32.0-36.0) 34.3 G/DL (32.0-36.0) Red Cell Distribution Width 13.9 % (11.6-14.8) 15.4 % (11.6-14.8) 13.7 % (11.6-14.8) Platelet Count 397 K/UL (150-450) 400 K/UL (150-450) 409 K/UL (150-450) Mean Platelet Volume 6.4 FL (6.5-10.1) 7.2 FL (6.5-10.1) 5.8 FL (6.5-10.1) Neutrophils (%) (Auto) % (45.0-75.0) % (45.0-75.0) % (45.0-75.0) Lymphocytes (%) (Auto) % (20.0-45.0) % (20.0-45.0) % (20.0-45.0) Monocytes (%) (Auto) % (1.0-10.0) % (1.0-10.0) % (1.0-10.0) Eosinophils (%) (Auto) % (0.0-3.0) % (0.0-3.0) % (0.0-3.0) Basophils (%) (Auto) % (0.0-2.0) % (0.0-2.0) % (0.0-2.0) Differential Total Cells Counted 100 100 Neutrophils % (Manual) 93 % (45-75) 86 % (45-75) Lymphocytes % (Manual) 5 % (20-45) 7 % (20-45) Monocytes % (Manual) 2 % (1-10) 4 % (1-10) Eosinophils % (Manual) 0 % (0-3) 0 % (0-3) Basophils % (Manual) 0 % (0-2) 0 % (0-2) Band Neutrophils 0 % (0-8) 3 % (0-8) Platelet Estimate Adequate Adequate Platelet Morphology Normal Normal Hypochromasia 1+ 1+ Sodium Level 136 MMOL/L (136-145) 135 MMOL/L (136-145) Potassium Level 3.4 MMOL/L (3.5-5.1) 4.0 MMOL/L (3.5-5.1) Chloride Level 103 MMOL/L (98-107) 102 MMOL/L (98-107) Carbon Dioxide Level 24 MMOL/L (21-32) 20 MMOL/L (21-32) Anion Gap 9 mmol/L (5-15) 13 mmol/L (5-15) Blood Urea Nitrogen 13 mg/dL (7-18) 17 mg/dL (7-18) Creatinine 0.9 MG/DL (0.55-1.30) 0.9 MG/DL (0.55-1.30) Estimat Glomerular Filtration Rate > 60 mL/min (>60) > 60 mL/min (>60) Glucose Level 188 MG/DL (74-106) 131 MG/DL (74-106) Calcium Level 7.9 MG/DL (8.5-10.1) 8.2 MG/DL (8.5-10.1) Magnesium Level 1.8 MG/DL (1.8-2.4) Anisocytosis 1+ Ferritin 1075 NG/ML (8-388) Total Bilirubin 0.2 MG/DL (0.2-1.0) Aspartate Amino Transf (AST/SGOT) 25 U/L (15-37) Alanine Aminotransferase (ALT/SGPT) 29 U/L (12-78) Alkaline Phosphatase 126 U/L (46-116) Total Protein 6.6 G/DL (6.4-8.2) Albumin 1.3 G/DL (3.4-5.0) Globulin 5.3 g/dL Albumin/Globulin Ratio 0.2 (1.0-2.7) Height (Feet): 5 Height (Inches): 2.00 Weight (Pounds): 127 Objective Review of Systems All Other Systems: negative except mentioned in HPI Physical Exam Sp02 EP Interpretation: reviewed, normal General Appearance: other - Contracted elderly female nonverbal Head: normocephalic, atraumatic Neck: full range of motion, supple Resp: chest non-tender, lungs clear, normal breath sounds, speaking full sentences Cardiovascular: tachycardia Gi: non tender, soft, GT+ Gu: Tovar catheter in place Psychiatric: nonverbal Skin: no rash Fermin Baum MD Feb 17, 2020 13:25
--- NOTE | 2020-02-17 16:58 | Cardiology Progress Note ---
Assessment/Plan Status: stable Assessment/Plan Assessment/Plan Assessment/Plan: CVA Non verbal DM COPD CKD CHF GERD Pacemaker Hypotension Sepsis -Troponin down trending -Monitor for arrhythmias -No indication for cath at this time. -Continue IV fluids -Continue aspirin/statin/metoprolol -PPM with normal function Subjective Cardiovascular: Reports: no symptoms Respiratory: Reports: no symptoms Gastrointestinal/Abdominal: Reports: no symptoms Subjective No acute events, Patient AAOx1 no distress tolerating tube feeds, WBC elevated, troponin down trending, tachycardic remains albeit mild, No shortness of breath or distress. CTA abdomen done with no kidney stones, small pleural effusions. Objective Last 24 Hour Vital Signs Date Time Temp Pulse Resp B/P (MAP) Pulse Ox O2 Delivery O2 Flow Rate FiO2 02/17/20 13:05 98.3 105 22 149/88 (108) 95 02/17/20 12:00 105 02/17/20 12:00 98.3 105 22 149/88 (108) 95 02/17/20 09:14 106 158/74 02/17/20 09:12 106 158/74 02/17/20 09:00 Room Air 02/17/20 08:00 98.2 106 22 158/74 (102) 96 02/17/20 08:00 92 02/17/20 04:00 96 02/17/20 04:00 97.0 106 20 137/90 (106) 100 02/17/20 00:00 97.4 110 19 130/87 (101) 99 02/17/20 00:00 103 02/16/20 21:00 Room Air 02/16/20 20:56 94 134/73 02/16/20 20:00 93 02/16/20 20:00 98.4 94 19 134/73 (93) 96 General Appearance: no apparent distress, lethargic EENT: PERRL/EOMI, normal ENT inspection, TMs normal, pharynx normal Neck: non-tender, normal alignment, supple, normal inspection, no JVD Rhythm: NSR Cardiovascular: normal peripheral pulses, normal rate, regular rhythm Respiratory/Chest: chest wall non-tender, lungs clear, normal breath sounds, no respiratory distress, no accessory muscle use Abdomen: normal bowel sounds, non tender, soft, no organomegaly, no mass Extremities: normal range of motion, non-tender, normal inspection, no calf tenderness, no swelling 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, no motor/sensory deficits Intake and Output 02/16/20 02/17/20 19:00 07:00 Intake Total 120 ml 1310 ml Output Total 500 ml 500 ml Balance -380 ml 810 ml Free Water 400 ml Tube Feeding 120 ml 660 ml Blood Product 250 ml Output Urine Total 500 ml 500 ml # Bowel Movements 3 2 Laboratory Tests Test 02/16/20 22:20 02/17/20 06:10 02/17/20 06:25 02/17/20 11:30 White Blood Count 21.1 K/UL (4.8-10.8) H 21.9 K/UL (4.8-10.8) H Red Blood Count 3.10 M/UL (4.20-5.40) L 3.28 M/UL (4.20-5.40) L Hemoglobin 8.6 G/DL (12.0-16.0) L 9.3 G/DL (12.0-16.0) L Hematocrit 26.3 % (37.0-47.0) L 27.2 % (37.0-47.0) L Mean Corpuscular Volume 85 FL (80-99) 83 FL (80-99) Mean Corpuscular Hemoglobin 27.8 PG (27.0-31.0) 28.5 PG (27.0-31.0) Mean Corpuscular Hemoglobin Concent 32.8 G/DL (32.0-36.0) 34.3 G/DL (32.0-36.0) Red Cell Distribution Width 15.4 % (11.6-14.8) H 13.7 % (11.6-14.8) Platelet Count 400 K/UL (150-450) 409 K/UL (150-450) Mean Platelet Volume 7.2 FL (6.5-10.1) 5.8 FL (6.5-10.1) L Neutrophils (%) (Auto) % (45.0-75.0) % (45.0-75.0) Lymphocytes (%) (Auto) % (20.0-45.0) % (20.0-45.0) Monocytes (%) (Auto) % (1.0-10.0) % (1.0-10.0) Eosinophils (%) (Auto) % (0.0-3.0) % (0.0-3.0) Basophils (%) (Auto) % (0.0-2.0) % (0.0-2.0) Differential Total Cells Counted 100 100 Neutrophils % (Manual) 86 % (45-75) H 93 % (45-75) H Lymphocytes % (Manual) 7 % (20-45) L 4 % (20-45) L Monocytes % (Manual) 4 % (1-10) 3 % (1-10) Eosinophils % (Manual) 0 % (0-3) 0 % (0-3) Basophils % (Manual) 0 % (0-2) 0 % (0-2) Band Neutrophils 3 % (0-8) 0 % (0-8) Platelet Estimate Adequate Adequate Platelet Morphology Normal Normal Hypochromasia 1+ Anisocytosis 1+ Ferritin 1075 NG/ML (8-388) H Red Blood Cell Morphology Normal Sodium Level 135 MMOL/L (136-145) L Potassium Level 4.0 MMOL/L (3.5-5.1) Chloride Level 102 MMOL/L (98-107) Carbon Dioxide Level 20 MMOL/L (21-32) L Anion Gap 13 mmol/L (5-15) Blood Urea Nitrogen 17 mg/dL (7-18) Creatinine 0.9 MG/DL (0.55-1.30) Estimat Glomerular Filtration Rate > 60 mL/min (>60) Glucose Level 131 MG/DL (74-106) H Calcium Level 8.2 MG/DL (8.5-10.1) L Total Bilirubin 0.2 MG/DL (0.2-1.0) Aspartate Amino Transf (AST/SGOT) 25 U/L (15-37) Alanine Aminotransferase (ALT/SGPT) 29 U/L (12-78) Alkaline Phosphatase 126 U/L (46-116) H Total Protein 6.6 G/DL (6.4-8.2) Albumin 1.3 G/DL (3.4-5.0) L Globulin 5.3 g/dL Albumin/Globulin Ratio 0.2 (1.0-2.7) L Stool Occult Blood Pending Microbiology Date/Time Source Procedure Growth Status 02/14/20 21:00 Blood Blood Culture - Preliminary Resulted 02/14/20 20:45 Blood Blood Culture - Preliminary NO GROWTH AFTER 48 HOURS Resulted 02/15/20 06:00 Stool Clostridium difficile Toxin Assay - Final Complete Dennis Crain MD Feb 17, 2020 16:58
--- NOTE | 2020-02-17 17:06 | Cardiac Electrophysiology PN ---
Assessment/Plan Assessment/Plan 1. Status post right-sided [facility] DDD pacer implantation. Interrogation showed No Pacer Mediated tachycardia Just sinus tach likely due to acute [place] with peak troponin 31. Continue Lopressor 2. Acute NSTEMI with peak troponin 31. Down to 2. Non verbal. Continue aspirin, Lopressor and Lipitor. Repeat Echo on 02/11/20 EF 40-45% 3. Diabetes. 4. Hypertension, on Toprol 25 daily. 5. Status post septic shock. WBC increased to 27 K. On iv Abx per Dr. Naylor Now WBC 22K 6. Severe anemia. Hemoglobin improved from 7.5 to 9.4. 7. Dementia. 8. CVA. 10. COPD. 11. ARF and possible hydronephrosis, Cr now normal. 12. S/P PEG placement. DW RN Subjective Subjective Nonverbal responsive in sinus with V tracking at around 100-110. Comfortable in NAD. Objective Last 24 Hour Vital Signs Date Time Temp Pulse Resp B/P (MAP) Pulse Ox O2 Delivery O2 Flow Rate FiO2 02/17/20 13:05 98.3 105 22 149/88 (108) 95 02/17/20 12:00 105 02/17/20 12:00 98.3 105 22 149/88 (108) 95 02/17/20 09:14 106 158/74 02/17/20 09:12 106 158/74 02/17/20 09:00 Room Air 02/17/20 08:00 98.2 106 22 158/74 (102) 96 02/17/20 08:00 92 02/17/20 04:00 96 02/17/20 04:00 97.0 106 20 137/90 (106) 100 02/17/20 00:00 97.4 110 19 130/87 (101) 99 02/17/20 00:00 103 02/16/20 21:00 Room Air 02/16/20 20:56 94 134/73 02/16/20 20:00 93 02/16/20 20:00 98.4 94 19 134/73 (93) 96 Intake and Output 02/16/20 02/17/20 19:00 07:00 Intake Total 120 ml 1310 ml Output Total 500 ml 500 ml Balance -380 ml 810 ml Free Water 400 ml Tube Feeding 120 ml 660 ml Blood Product 250 ml Output Urine Total 500 ml 500 ml # Bowel Movements 3 2 Laboratory Tests Test 02/16/20 22:20 02/17/20 06:10 02/17/20 06:25 02/17/20 11:30 White Blood Count 21.1 K/UL (4.8-10.8) H 21.9 K/UL (4.8-10.8) H Red Blood Count 3.10 M/UL (4.20-5.40) L 3.28 M/UL (4.20-5.40) L Hemoglobin 8.6 G/DL (12.0-16.0) L 9.3 G/DL (12.0-16.0) L Hematocrit 26.3 % (37.0-47.0) L 27.2 % (37.0-47.0) L Mean Corpuscular Volume 85 FL (80-99) 83 FL (80-99) Mean Corpuscular Hemoglobin 27.8 PG (27.0-31.0) 28.5 PG (27.0-31.0) Mean Corpuscular Hemoglobin Concent 32.8 G/DL (32.0-36.0) 34.3 G/DL (32.0-36.0) Red Cell Distribution Width 15.4 % (11.6-14.8) H 13.7 % (11.6-14.8) Platelet Count 400 K/UL (150-450) 409 K/UL (150-450) Mean Platelet Volume 7.2 FL (6.5-10.1) 5.8 FL (6.5-10.1) L Neutrophils (%) (Auto) % (45.0-75.0) % (45.0-75.0) Lymphocytes (%) (Auto) % (20.0-45.0) % (20.0-45.0) Monocytes (%) (Auto) % (1.0-10.0) % (1.0-10.0) Eosinophils (%) (Auto) % (0.0-3.0) % (0.0-3.0) Basophils (%) (Auto) % (0.0-2.0) % (0.0-2.0) Differential Total Cells Counted 100 100 Neutrophils % (Manual) 86 % (45-75) H 93 % (45-75) H Lymphocytes % (Manual) 7 % (20-45) L 4 % (20-45) L Monocytes % (Manual) 4 % (1-10) 3 % (1-10) Eosinophils % (Manual) 0 % (0-3) 0 % (0-3) Basophils % (Manual) 0 % (0-2) 0 % (0-2) Band Neutrophils 3 % (0-8) 0 % (0-8) Platelet Estimate Adequate Adequate Platelet Morphology Normal Normal Hypochromasia 1+ Anisocytosis 1+ Ferritin 1075 NG/ML (8-388) H Red Blood Cell Morphology Normal Sodium Level 135 MMOL/L (136-145) L Potassium Level 4.0 MMOL/L (3.5-5.1) Chloride Level 102 MMOL/L (98-107) Carbon Dioxide Level 20 MMOL/L (21-32) L Anion Gap 13 mmol/L (5-15) Blood Urea Nitrogen 17 mg/dL (7-18) Creatinine 0.9 MG/DL (0.55-1.30) Estimat Glomerular Filtration Rate > 60 mL/min (>60) Glucose Level 131 MG/DL (74-106) H Calcium Level 8.2 MG/DL (8.5-10.1) L Total Bilirubin 0.2 MG/DL (0.2-1.0) Aspartate Amino Transf (AST/SGOT) 25 U/L (15-37) Alanine Aminotransferase (ALT/SGPT) 29 U/L (12-78) Alkaline Phosphatase 126 U/L (46-116) H Total Protein 6.6 G/DL (6.4-8.2) Albumin 1.3 G/DL (3.4-5.0) L Globulin 5.3 g/dL Albumin/Globulin Ratio 0.2 (1.0-2.7) L Stool Occult Blood Pending Microbiology Date/Time Source Procedure Growth Status 02/14/20 21:00 Blood Blood Culture - Preliminary Resulted 02/14/20 20:45 Blood Blood Culture - Preliminary NO GROWTH AFTER 48 HOURS Resulted 02/15/20 06:00 Stool Clostridium difficile Toxin Assay - Final Complete Objective HEAD AND NECK: Shows no JVD. LUNGS: Coarse rhonchi. CARDIOVASCULAR: Regular S1 and S2. Pacemaker is in the right subclavian. ABDOMEN: Soft.PEG in place EXTREMITIES: Contracted. Oscar Corley MD Feb 17, 2020 17:06
--- NOTE | 2020-02-17 18:14 | Surgery Progress Note ---
Surgery Progress Note Subjective Symptoms: improved, tolerating diet, passing flatus, BM Objective Last 24 Hour Vital Signs Date Time Temp Pulse Resp B/P (MAP) Pulse Ox O2 Delivery O2 Flow Rate FiO2 02/17/20 13:05 98.3 105 22 149/88 (108) 95 02/17/20 12:00 105 02/17/20 12:00 98.3 105 22 149/88 (108) 95 02/17/20 09:14 106 158/74 02/17/20 09:12 106 158/74 02/17/20 09:00 Room Air 02/17/20 08:00 98.2 106 22 158/74 (102) 96 02/17/20 08:00 92 02/17/20 04:00 96 02/17/20 04:00 97.0 106 20 137/90 (106) 100 02/17/20 00:00 97.4 110 19 130/87 (101) 99 02/17/20 00:00 103 02/16/20 21:00 Room Air 02/16/20 20:56 94 134/73 02/16/20 20:00 93 02/16/20 20:00 98.4 94 19 134/73 (93) 96 I&O Intake and Output 02/16/20 02/17/20 19:00 07:00 Intake Total 120 ml 1310 ml Output Total 500 ml 500 ml Balance -380 ml 810 ml Free Water 400 ml Tube Feeding 120 ml 660 ml Blood Product 250 ml Output Urine Total 500 ml 500 ml # Bowel Movements 3 2 Dressing: other Wound: other Drains: other Cardiovascular: RSR Respiratory: decreased breath sounds Abdomen: soft, non-tender, present bowel sounds Extremities: no tenderness, no cyanosis Laboratory Tests Test 02/16/20 22:20 02/17/20 06:10 02/17/20 06:25 02/17/20 11:30 White Blood Count 21.1 K/UL (4.8-10.8) H 21.9 K/UL (4.8-10.8) H Red Blood Count 3.10 M/UL (4.20-5.40) L 3.28 M/UL (4.20-5.40) L Hemoglobin 8.6 G/DL (12.0-16.0) L 9.3 G/DL (12.0-16.0) L Hematocrit 26.3 % (37.0-47.0) L 27.2 % (37.0-47.0) L Mean Corpuscular Volume 85 FL (80-99) 83 FL (80-99) Mean Corpuscular Hemoglobin 27.8 PG (27.0-31.0) 28.5 PG (27.0-31.0) Mean Corpuscular Hemoglobin Concent 32.8 G/DL (32.0-36.0) 34.3 G/DL (32.0-36.0) Red Cell Distribution Width 15.4 % (11.6-14.8) H 13.7 % (11.6-14.8) Platelet Count 400 K/UL (150-450) 409 K/UL (150-450) Mean Platelet Volume 7.2 FL (6.5-10.1) 5.8 FL (6.5-10.1) L Neutrophils (%) (Auto) % (45.0-75.0) % (45.0-75.0) Lymphocytes (%) (Auto) % (20.0-45.0) % (20.0-45.0) Monocytes (%) (Auto) % (1.0-10.0) % (1.0-10.0) Eosinophils (%) (Auto) % (0.0-3.0) % (0.0-3.0) Basophils (%) (Auto) % (0.0-2.0) % (0.0-2.0) Differential Total Cells Counted 100 100 Neutrophils % (Manual) 86 % (45-75) H 93 % (45-75) H Lymphocytes % (Manual) 7 % (20-45) L 4 % (20-45) L Monocytes % (Manual) 4 % (1-10) 3 % (1-10) Eosinophils % (Manual) 0 % (0-3) 0 % (0-3) Basophils % (Manual) 0 % (0-2) 0 % (0-2) Band Neutrophils 3 % (0-8) 0 % (0-8) Platelet Estimate Adequate Adequate Platelet Morphology Normal Normal Hypochromasia 1+ Anisocytosis 1+ Ferritin 1075 NG/ML (8-388) H Red Blood Cell Morphology Normal Sodium Level 135 MMOL/L (136-145) L Potassium Level 4.0 MMOL/L (3.5-5.1) Chloride Level 102 MMOL/L (98-107) Carbon Dioxide Level 20 MMOL/L (21-32) L Anion Gap 13 mmol/L (5-15) Blood Urea Nitrogen 17 mg/dL (7-18) Creatinine 0.9 MG/DL (0.55-1.30) Estimat Glomerular Filtration Rate > 60 mL/min (>60) Glucose Level 131 MG/DL (74-106) H Calcium Level 8.2 MG/DL (8.5-10.1) L Total Bilirubin 0.2 MG/DL (0.2-1.0) Aspartate Amino Transf (AST/SGOT) 25 U/L (15-37) Alanine Aminotransferase (ALT/SGPT) 29 U/L (12-78) Alkaline Phosphatase 126 U/L (46-116) H Total Protein 6.6 G/DL (6.4-8.2) Albumin 1.3 G/DL (3.4-5.0) L Globulin 5.3 g/dL Albumin/Globulin Ratio 0.2 (1.0-2.7) L Stool Occult Blood Pending Plan Problems: (1) Septic shock Assessment & Plan: Patient presented to emergency department with sepsis hypotension tachycardia lactic acidosis leukocytosis. On IV antibiotics Labs improving IV hydration Continue tube feeds advance goal as tolerated Abdominal exam does elicit patient to retract a bit but she is not tender peritonitis or without rebound or significant guarding. exam improved Likely startle effect rather than intra-abdominal pathology will follow with serial exams continue with current care plan thank you for let me participate in patient's care leukocytosis. c diff negative. blood cultures noted abx as per ID Severe left hydronephrosis versus parapelvic cysts. No definite obstructing stone. Mild bladder wall thickening with small gas foci in the bladder, concerning for cystitis. Please correlate with urinalysis. Acute NSTEMI with peak troponin 31 as per cardiology wbc fever micro worsening leukocytosis -Small bilateral pleural effusions with passive atelectasis and lung base motion artifact. -Pacer device leads in the heart. -Tovar catheter in the decompressed urinary bladder. - No urolithiasis seen. -Consider left renal collecting system infection/UTI/pyelonephritis in the proper context given moderate left perinephric stranding which is asymmetric compared with the right. -Similar to prior study left inferior renal moiety moderate hydronephrosis without visualized cause. 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 -If there is further desire to evaluate collecting system dilation, consider repeating the study with CT hematuria protocol. -Sacral decubitus ulcer, correlate with presentation. - Rapid transit of contrast through the GI tract could be incidental or could be seen with an infectious or inflammatory enteritis. -Indeterminate left adrenal 2.1 cm enhancing nodule, if felt to alter clinical management consider additional evaluation adrenal gland. CONSIDER correlation with prior imaging studies. -Right renal cortical scarring due to old infectious or ischemic insults. -Atherosclerotic vascular disease. - Hysterectomy. -Unchanged osteopenia and degenerative spine findings. Unchanged old right possible lesser trochanter fracture versus extensive right hip capsular calcifications. (2) Decubitus skin ulcer Assessment & Plan: 84-year-old female presented on admission with multiple decubitus skin ulcers and skin concerns. Patient identified to have a unstageable sacral lower back decubitus ulcer, periwound maceration, area of necrotic eschar soft, no drainage, no abscess, no foul odor Pt presented on admission with contractures, Multiple Pressure injuries.open DTPI sacrum.Wound is open at sacrococcygeal area(40%), with soft necrotic base ( L)5.5cm x (W)4.5cm. Surrounding base of wound is maroon and indurated. Total area of sacral DTPI measures(L) 12.5cm x (W)15cm. Non-blanching erythema periwound.In addition several small partial thickness wounds noted along Perineum.` Areas of hyperpigmentation noted to L and R trochanteric. Full thickness wound R knee.(L)1.1cm x (W)1.5cm.1 Base of wound 90% pink granulation,10% slough noted in center of wound. Borders are macerated.small amt serous exudate. No odor noted. No erythema or fluctuance noted periwound. Non-blanching erythema with fluctuance R heel. Unstageable pressure injury R hallux. Base of wound is 100% soft necrosis. Edges adherent and dry.No odor or exudate noted.Surrounding darker skin tone without erythema or fluctuance(L)2.6cm x (W)3cm. DTPI R Ankle(L)0.9cm x (W)1.6cm. Base of wound is fluctuant, maroon with marginal erythema. Periwound without erythema or fluctuance. Unstageable pressure injury distal/lateral R foot. Base of wound 100% soft necrosis with surrounding non-blanching erythema with fluctuance.(L)2cm x (W) 0.9cm. Stable dry eschar medial/lateral R foot (L)0.4cm x (W)0.8cm. Stable dry eschar lateral L heel.(L)1.9cm x (W)2.2cm. No erythema or fluctuance periwound. Unstable pressure injury medial/lateral L foot. Base of wound is 100% necrotic but dry.(L)0.7cm x (W)0.8cm. Unstageable pressure injury distal/lateral L foot. Base of wound is 100% necrotic but dry. (L)1.2cm x (W)1.6cm.non-blanching erythema without fluctuance periwound. Non-blanching erythema without fluctuance lateral L 5th metatarsal.(L)1.5cm x (W )0.5cm. Open DTPI L Hallux.Base of wound has mixed necrosis and slough with surrounding base of wound maroon with fluctuance. Non-blanching erythema without elevation in skin temp,or fluctuance periwound. Tx.plan: Cleanse Sacral wound with Saline. Apply TheraHoney. Apply Moisture Barrier Paste Periwound. Cover with Optifoam drsg. Change Daily and prn. Swab R nee with Betadine. Cover with Optifoam drsg every 3 days and prn. Swab wounds R foot with Betadine. Cover each wound with Optifoam drsg. Change every 3 days and prn. Swab wounds L foot with Betadine. Cover each wound with Optifoam drsg. Change every 3 days and prn. Reposition at least every 2hours or as tolerated. Place pillow between knees. Off-load heels with Pillow. APM/ARIEL Mattress. DAILY ESTIMATED NEEDS: Needs based on Wounds, underweight 50kg 30-35 kcals/kg 0519-6281 total kcals 1.25-2 g protein/kg 63-100 g total protein 25-30 mL/kg 1222-4773 total fluid mLs NUTRITION DIAGNOSIS: Increased kcal and pro needs r/t underweight status and wound healing as evidenced by pt @85% Foster Body Weight w/ multiple wounds, eval pending, pt is PEG dep. CURRENT TF:Glucerna 1.5 @60ml x20 hrs ENTERAL NUTRITION RECOMMENDATIONS: Maintain current TF as tolerated: Glucerna 1.5 @60ml/hr x20 hrs to provide 1200ml, 1800 kcal, 99g pro, 911ml free H2o -> Monitor for hypoglycemia and need to change to non carb control formula -> Flush per MD. HOB over 30 degrees ADDITIONAL RECOMMENDATIONS: 1) On iso, per SNF pt is: 65 inches + 110#/50kg 2) Wound care: add MATT in 4oz H2O BID via GT F/up w/ WC eval 3) Maintain calibrated bed scale wts 4) Monitor for continued hypoglycemic events, need for D5 or TF change Luther Mercedes Feb 17, 2020 18:14
--- NOTE | 2020-02-17 19:57 | Neurology Progress Note ---
Interim History Interim History ROS Limited/Unobtainable: Yes Interim History no new neuro changes Objective Physical Exam Last Vital Signs Date Time Temp Pulse Resp B/P (MAP) Pulse Ox O2 Delivery O2 Flow Rate FiO2 02/17/20 13:05 98.3 105 22 149/88 (108) 95 02/17/20 09:00 Room Air 02/09/20 04:00 2.0 Laboratory Tests Test 02/16/20 22:20 02/17/20 06:10 02/17/20 06:25 02/17/20 11:30 White Blood Count 21.1 K/UL (4.8-10.8) H 21.9 K/UL (4.8-10.8) H Red Blood Count 3.10 M/UL (4.20-5.40) L 3.28 M/UL (4.20-5.40) L Hemoglobin 8.6 G/DL (12.0-16.0) L 9.3 G/DL (12.0-16.0) L Hematocrit 26.3 % (37.0-47.0) L 27.2 % (37.0-47.0) L Mean Corpuscular Volume 85 FL (80-99) 83 FL (80-99) Mean Corpuscular Hemoglobin 27.8 PG (27.0-31.0) 28.5 PG (27.0-31.0) Mean Corpuscular Hemoglobin Concent 32.8 G/DL (32.0-36.0) 34.3 G/DL (32.0-36.0) Red Cell Distribution Width 15.4 % (11.6-14.8) H 13.7 % (11.6-14.8) Platelet Count 400 K/UL (150-450) 409 K/UL (150-450) Mean Platelet Volume 7.2 FL (6.5-10.1) 5.8 FL (6.5-10.1) L Neutrophils (%) (Auto) % (45.0-75.0) % (45.0-75.0) Lymphocytes (%) (Auto) % (20.0-45.0) % (20.0-45.0) Monocytes (%) (Auto) % (1.0-10.0) % (1.0-10.0) Eosinophils (%) (Auto) % (0.0-3.0) % (0.0-3.0) Basophils (%) (Auto) % (0.0-2.0) % (0.0-2.0) Differential Total Cells Counted 100 100 Neutrophils % (Manual) 86 % (45-75) H 93 % (45-75) H Lymphocytes % (Manual) 7 % (20-45) L 4 % (20-45) L Monocytes % (Manual) 4 % (1-10) 3 % (1-10) Eosinophils % (Manual) 0 % (0-3) 0 % (0-3) Basophils % (Manual) 0 % (0-2) 0 % (0-2) Band Neutrophils 3 % (0-8) 0 % (0-8) Platelet Estimate Adequate Adequate Platelet Morphology Normal Normal Hypochromasia 1+ Anisocytosis 1+ Ferritin 1075 NG/ML (8-388) H Red Blood Cell Morphology Normal Sodium Level 135 MMOL/L (136-145) L Potassium Level 4.0 MMOL/L (3.5-5.1) Chloride Level 102 MMOL/L (98-107) Carbon Dioxide Level 20 MMOL/L (21-32) L Anion Gap 13 mmol/L (5-15) Blood Urea Nitrogen 17 mg/dL (7-18) Creatinine 0.9 MG/DL (0.55-1.30) Estimat Glomerular Filtration Rate > 60 mL/min (>60) Glucose Level 131 MG/DL (74-106) H Calcium Level 8.2 MG/DL (8.5-10.1) L Total Bilirubin 0.2 MG/DL (0.2-1.0) Aspartate Amino Transf (AST/SGOT) 25 U/L (15-37) Alanine Aminotransferase (ALT/SGPT) 29 U/L (12-78) Alkaline Phosphatase 126 U/L (46-116) H Total Protein 6.6 G/DL (6.4-8.2) Albumin 1.3 G/DL (3.4-5.0) L Globulin 5.3 g/dL Albumin/Globulin Ratio 0.2 (1.0-2.7) L Stool Occult Blood Pending Head: normocophalic, atraumatic Neck: no rigidity EENT: benign Neurologic Exam Sensory: other - cc 35 min Objective lethargic, minimal withdraw in all 4 cc 35 min Impression/Recommendations Problems: (1) Septic shock (2) Anemia (3) Elevated troponin (4) Sepsis (5) Decubitus skin ulcer Status: stable Diagnostic Impression Acute encephalopathy in the context of sepsis Dementia, likely vascular Hx of strokes Monitor neuro exam Delirium precautions atb broad spectrum asa daily Luis Nash MD Feb 17, 2020 19:57
[2020-02-17 20:00] VITALS: BP 128/72
[2020-02-17] MEDS: Atorvastatin 20mg tab ORAL SCH (21:39)
[2020-02-17] MEDS: Metoprolol Tartrate 50mg tab GT SCH (21:39)
[2020-02-17] MEDS: Iron Sucrose 100 MG in NS 55 ML IV SCH (21:40)
[2020-02-18] VITALS (14 sets, daily range): BP systolic 94–146; BP diastolic 48–91
[2020-02-18] MEDS: Meropenem 1 GM in NS 55 ML IVPB SCH ×2 (01:45→13:21)
[2020-02-18] MEDS: Levothyroxine 25mcg tab ORAL SCH (06:32)
--- NOTE | 2020-02-18 08:42 | General Progress Note ---
Assessment/Plan Problem List: (1) Diarrhea ICD Codes: R19.7 - Diarrhea, unspecified SNOMED: 05272896 (2) GI (gastrointestinal bleed) ICD Codes: K92.2 - Gastrointestinal hemorrhage, unspecified SNOMED: 90778175 (3) Elevated troponin ICD Codes: R79.89 - Other specified abnormal findings of blood chemistry; R65.21 - Severe sepsis with septic shock SNOMED: 591303087, 098303024, 211467849 (4) Anemia ICD Codes: D64.9 - Anemia, unspecified SNOMED: 688126794 (5) Septic shock ICD Codes: A41.9 - Sepsis, unspecified organism; R65.21 - Severe sepsis with septic shock SNOMED: 21001324 Status: stable Assessment/Plan: diarrhea is better with Lomotil and Imodium neg stool C.diff ppi>>> will dc TF , Glucerna 1.2 s/p blood transfusion last week COVID >>> neg given active MN and stable H&H will hold GI procedures for now repeat stool ob>>> neg repeat CBC fu ID regarding ABX treatment of Pylo fu repeat CT>>> reviewed>>>fu ID recs Subjective ROS Limited/Unobtainable: No Allergies: Coded Allergies: No Known Allergies (Unverified , 01/30/20) Objective Last 24 Hour Vital Signs Date Time Temp Pulse Resp B/P (MAP) Pulse Ox O2 Delivery O2 Flow Rate FiO2 02/18/20 04:00 98.6 105 20 139/74 (95) 95 02/18/20 03:39 101 02/18/20 00:00 98.4 104 20 141/91 (108) 96 02/17/20 23:32 100 02/17/20 21:39 107 128/72 02/17/20 21:00 Room Air 02/17/20 20:00 98.8 107 20 128/72 (90) 96 02/17/20 20:00 102 02/17/20 16:00 116 02/17/20 13:05 98.3 105 22 149/88 (108) 95 02/17/20 12:00 105 02/17/20 12:00 98.3 105 22 149/88 (108) 95 02/17/20 09:14 106 158/74 02/17/20 09:12 106 158/74 02/17/20 09:00 Room Air Intake and Output 02/17/20 02/18/20 19:00 07:00 Intake Total 320 ml 960 ml Output Total 1100 ml 1200 ml Balance -780 ml -240 ml Free Water 200 ml 300 ml Tube Feeding 120 ml 660 ml Output Urine Total 1100 ml 1200 ml # Voids 1 # Bowel Movements 2 2 Laboratory Tests 02/17/20 11:30: Stool Occult Blood [Pending] Height (Feet): 5 Height (Inches): 2.00 Weight (Pounds): 127 General Appearance: no apparent distress EENT: normal ENT inspection Neck: supple Cardiovascular: normal rate Respiratory/Chest: decreased breath sounds Abdomen: normal bowel sounds, non tender, soft Extremities: non-tender Herminio Rodriguez MD Feb 18, 2020 08:42
--- NOTE | 2020-02-18 09:07 | Neurology Progress Note ---
Interim History Interim History ROS Limited/Unobtainable: No Interim History non verbal, tracks with eyes, right sided weaker Objective Physical Exam Last Vital Signs Date Time Temp Pulse Resp B/P (MAP) Pulse Ox O2 Delivery O2 Flow Rate FiO2 02/18/20 08:00 98.6 101 18 146/79 (101) 98 02/17/20 21:00 Room Air Laboratory Tests Test 02/17/20 11:30 Stool Occult Blood Pending Head: normocophalic, atraumatic Neck: no rigidity EENT: benign Neurologic Exam Sensory: other - cc 35 min Objective alert, tracks with eyes, Right sided weaker than left Impression/Recommendations Problems: (1) Septic shock (2) Anemia (3) Elevated troponin (4) Sepsis (5) Decubitus skin ulcer Status: stable Diagnostic Impression Acute encephalopathy in the context of sepsis Dementia, likely vascular Hx of strokes Monitor neuro exam Delirium precautions atb per primary asa daily PT OT Luis Nash MD Feb 18, 2020 09:07
--- NOTE | 2020-02-18 09:16 | Hematology/Onc Progress Note ---
Assessment/Plan Assessment/Plan Assessment and Recs: # Leukocytosis likely due to sepsi and citrobacter bacteremia, vre/enterococcus uti, fungemia risk --> imaging has since been reviewed --> peripheral smear is negative --> abx as per id: meropenem/linezolid --> flow cytometry if doesn't improve by next week --> c diff and covid 19 negative --> wbc trend: 21.9-->21.9 # Anemia likely due to iron deficiency --> ferritin is ordered, other anemia panel reviewed --> hgb trend 8.6-->8.8-->9.3 -->9 --> hgb goal greater than 7, transfuse as needed --> no evidence of hemolysis is noted --> prbc: 1 unit 02/16/2020 # hypernatremia due to free water deficit of close to 3L-improved --> per renal --> on ivfs # 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 Subjective Constitutional: Denies: no symptoms, chills, fever, malaise, weakness, other HEENT: Denies: no symptoms, eye pain, blurred vision, tearing, double vision, ear pain, ear discharge, nose pain, nose congestion, throat pain, throat swelling, mouth pain, mouth swelling, other Cardiovascular: Denies: no symptoms, chest pain, edema, irregular heart rate, lightheadedness, palpitations, syncope, other Respiratory: Denies: no symptoms, cough, shortness of breath, SOB with excertion, SOB at rest, sputum, wheezing, other Gastrointestinal/Abdominal: Denies: no symptoms, abdomen distended, abdominal pain, black stools, tarry stools, blood in stool, constipated, diarrhea, difficulty swallowing, nausea, poor appetite, poor fluid intake, rectal bleeding , vomiting, other Genitourinary: Denies: no symptoms, burning, discharge, frequency, flank pain, hematuria, incontinence, pain, urgency, other Neurologic/Psychiatric: Denies: no symptoms, anxiety, depressed, emotional problems, headache, numbness, paresthesia, pre-existing deficit, seizure, tingling, tremors, weakness, other Endocrine: Denies: no symptoms, excessive sweating, flushing, intolerance to cold, intolerance to heat, increased hunger, increased thirst, increased urine, unexplained weight gain, unexplained weight loss, other Allergies: Coded Allergies: No Known Allergies (Unverified , 01/30/20) Subjective 02/16 s/p 1 unit rbc, hgb 9.3, on iv iron, covid 19 negative 02/17 no events, this am, right sided weakness, labs are noted, reviewed, dw gi Objective Objective Current Medications Medications (Trade) Dose Ordered Sig/Moreno Route PRN Reason Start Time Stop Time Status Last Admin Dose Admin Acetaminophen (Tylenol) 650 mg Q4H PRN GT Mild Pain/Temp > 100.5 02/09/20 14:30 03/08/20 10:29 02/10/20 22:07 Amlodipine Besylate (Norvasc) 10 mg DAILY ORAL 02/16/20 09:00 03/17/20 08:59 02/17/20 09:12 Aspirin (ASA) 81 mg DAILY GT 02/11/20 09:00 03/27/20 08:59 02/17/20 09:13 Atorvastatin Calcium (Lipitor) 40 mg BEDTIME ORAL 02/09/20 21:00 04/29/20 20:59 02/17/20 21:39 Dextrose (Dextrose 50%) 25 ml Q30M PRN IV Hypoglycemia 02/09/20 14:30 04/29/20 18:59 Dextrose (Dextrose 50%) 50 ml Q30M PRN IV Hypoglycemia 02/09/20 14:30 04/29/20 18:59 Diphenhydramine HCl (Benadryl) 25 mg Q6H PRN ORAL Itching/Pruritis 02/09/20 15:00 03/10/20 14:59 Diphenoxylate HCl/ Atropine (Lomotil) 2.5 mg Q4H PRN GT Diarrhea 02/09/20 15:00 03/08/20 14:59 Fluconazole/ Sodium Chloride 100 ml @ 100 mls/hr Q24H IV 02/14/20 22:00 02/21/20 21:59 02/17/20 21:58 Iron Sucrose 100 mg/Sodium Chloride 60 ml @ 240 mls/hr BEDTIME IV 02/14/20 21:00 02/18/20 21:14 02/17/20 21:40 Levothyroxine Sodium (Synthroid) 25 mcg DAILY@0630 ORAL 02/10/20 06:30 03/01/20 06:29 02/18/20 06:32 Linezolid 300 ml @ 300 mls/hr EVERY 12 HOURS IVPB 02/14/20 19:30 02/21/20 19:29 02/17/20 21:41 Loperamide HCl (Imodium) 2 mg Q3H PRN NG Diarrhea 02/10/20 12:45 03/11/20 12:44 02/18/20 06:32 Meropenem 1 gm/ Sodium Chloride 55 ml @ 110 mls/hr Q12H IVPB 02/15/20 14:00 02/20/20 13:59 02/18/20 01:45 Metoprolol Tartrate (Lopressor) 50 mg Q12HR GT 02/17/20 21:00 05/13/20 08:59 02/17/20 21:39 Ondansetron HCl (Zofran) 4 mg Q6H PRN IVP Nausea & Vomiting 02/09/20 15:00 02/29/20 14:59 Last 24 Hour Vital Signs Date Time Temp Pulse Resp B/P (MAP) Pulse Ox O2 Delivery O2 Flow Rate FiO2 02/18/20 08:00 98.6 101 18 146/79 (101) 98 02/18/20 04:00 98.6 105 20 139/74 (95) 95 02/18/20 03:39 101 02/18/20 00:00 98.4 104 20 141/91 (108) 96 02/17/20 23:32 100 02/17/20 21:39 107 128/72 02/17/20 21:00 Room Air 02/17/20 20:00 98.8 107 20 128/72 (90) 96 02/17/20 20:00 102 02/17/20 16:00 116 02/17/20 13:05 98.3 105 22 149/88 (108) 95 02/17/20 12:00 105 02/17/20 12:00 98.3 105 22 149/88 (108) 95 02/17/20 09:14 106 158/74 02/17/20 09:12 106 158/74 02/17/20 09:00 Room Air 02/17/20 08:00 98.2 106 22 158/74 (102) 96 02/17/20 08:00 92 02/17/20 04:00 96 02/17/20 04:00 97.0 106 20 137/90 (106) 100 02/17/20 00:00 97.4 110 19 130/87 (101) 99 02/17/20 00:00 103 02/16/20 21:00 Room Air 02/16/20 20:56 94 134/73 02/16/20 20:00 93 02/16/20 20:00 98.4 94 19 134/73 (93) 96 02/16/20 16:00 97.2 92 20 130/70 (90) 93 02/16/20 16:00 91 02/16/20 12:00 97.0 104 18 132/76 (94) 93 02/16/20 12:00 105 Intake and Output 02/17/20 02/18/20 19:00 07:00 Intake Total 320 ml 960 ml Output Total 1100 ml 1200 ml Balance -780 ml -240 ml Free Water 200 ml 300 ml Tube Feeding 120 ml 660 ml Output Urine Total 1100 ml 1200 ml # Voids 1 # Bowel Movements 2 2 Labs Test 02/15/20 17:00 02/16/20 10:30 02/16/20 22:20 02/17/20 06:10 Activated Partial Thromboplast Time 33 SEC (23-33) White Blood Count 21.2 K/UL (4.8-10.8) 21.1 K/UL (4.8-10.8) Red Blood Count 2.87 M/UL (4.20-5.40) 3.10 M/UL (4.20-5.40) Hemoglobin 7.8 G/DL (12.0-16.0) 8.6 G/DL (12.0-16.0) Hematocrit 23.4 % (37.0-47.0) 26.3 % (37.0-47.0) Mean Corpuscular Volume 82 FL (80-99) 85 FL (80-99) Mean Corpuscular Hemoglobin 27.1 PG (27.0-31.0) 27.8 PG (27.0-31.0) Mean Corpuscular Hemoglobin Concent 33.2 G/DL (32.0-36.0) 32.8 G/DL (32.0-36.0) Red Cell Distribution Width 13.9 % (11.6-14.8) 15.4 % (11.6-14.8) Platelet Count 397 K/UL (150-450) 400 K/UL (150-450) Mean Platelet Volume 6.4 FL (6.5-10.1) 7.2 FL (6.5-10.1) Neutrophils (%) (Auto) % (45.0-75.0) % (45.0-75.0) Lymphocytes (%) (Auto) % (20.0-45.0) % (20.0-45.0) Monocytes (%) (Auto) % (1.0-10.0) % (1.0-10.0) Eosinophils (%) (Auto) % (0.0-3.0) % (0.0-3.0) Basophils (%) (Auto) % (0.0-2.0) % (0.0-2.0) Differential Total Cells Counted 100 100 Neutrophils % (Manual) 93 % (45-75) 86 % (45-75) Lymphocytes % (Manual) 5 % (20-45) 7 % (20-45) Monocytes % (Manual) 2 % (1-10) 4 % (1-10) Eosinophils % (Manual) 0 % (0-3) 0 % (0-3) Basophils % (Manual) 0 % (0-2) 0 % (0-2) Band Neutrophils 0 % (0-8) 3 % (0-8) Platelet Estimate Adequate Adequate Platelet Morphology Normal Normal Hypochromasia 1+ 1+ Sodium Level 136 MMOL/L (136-145) Potassium Level 3.4 MMOL/L (3.5-5.1) Chloride Level 103 MMOL/L (98-107) Carbon Dioxide Level 24 MMOL/L (21-32) Anion Gap 9 mmol/L (5-15) Blood Urea Nitrogen 13 mg/dL (7-18) Creatinine 0.9 MG/DL (0.55-1.30) Estimat Glomerular Filtration Rate > 60 mL/min (>60) Glucose Level 188 MG/DL (74-106) Calcium Level 7.9 MG/DL (8.5-10.1) Magnesium Level 1.8 MG/DL (1.8-2.4) Anisocytosis 1+ Ferritin 1075 NG/ML (8-388) Test 02/17/20 06:25 02/17/20 11:30 White Blood Count 21.9 K/UL (4.8-10.8) Red Blood Count 3.28 M/UL (4.20-5.40) Hemoglobin 9.3 G/DL (12.0-16.0) Hematocrit 27.2 % (37.0-47.0) Mean Corpuscular Volume 83 FL (80-99) Mean Corpuscular Hemoglobin 28.5 PG (27.0-31.0) Mean Corpuscular Hemoglobin Concent 34.3 G/DL (32.0-36.0) Red Cell Distribution Width 13.7 % (11.6-14.8) Platelet Count 409 K/UL (150-450) Mean Platelet Volume 5.8 FL (6.5-10.1) Neutrophils (%) (Auto) % (45.0-75.0) Lymphocytes (%) (Auto) % (20.0-45.0) Monocytes (%) (Auto) % (1.0-10.0) Eosinophils (%) (Auto) % (0.0-3.0) Basophils (%) (Auto) % (0.0-2.0) Differential Total Cells Counted 100 Neutrophils % (Manual) 93 % (45-75) Lymphocytes % (Manual) 4 % (20-45) Monocytes % (Manual) 3 % (1-10) Eosinophils % (Manual) 0 % (0-3) Basophils % (Manual) 0 % (0-2) Band Neutrophils 0 % (0-8) Platelet Estimate Adequate Platelet Morphology Normal Red Blood Cell Morphology Normal Sodium Level 135 MMOL/L (136-145) Potassium Level 4.0 MMOL/L (3.5-5.1) Chloride Level 102 MMOL/L (98-107) Carbon Dioxide Level 20 MMOL/L (21-32) Anion Gap 13 mmol/L (5-15) Blood Urea Nitrogen 17 mg/dL (7-18) Creatinine 0.9 MG/DL (0.55-1.30) Estimat Glomerular Filtration Rate > 60 mL/min (>60) Glucose Level 131 MG/DL (74-106) Calcium Level 8.2 MG/DL (8.5-10.1) Total Bilirubin 0.2 MG/DL (0.2-1.0) Aspartate Amino Transf (AST/SGOT) 25 U/L (15-37) Alanine Aminotransferase (ALT/SGPT) 29 U/L (12-78) Alkaline Phosphatase 126 U/L (46-116) Total Protein 6.6 G/DL (6.4-8.2) Albumin 1.3 G/DL (3.4-5.0) Globulin 5.3 g/dL Albumin/Globulin Ratio 0.2 (1.0-2.7) Height (Feet): 5 Height (Inches): 2.00 Weight (Pounds): 127 Objective Review of Systems All Other Systems: negative except mentioned in HPI Physical Exam Sp02 EP Interpretation: reviewed, normal General Appearance: other - Contracted elderly female nonverbal Head: normocephalic, atraumatic Neck: full range of motion, supple Resp: chest non-tender, lungs clear, speaking full sentences Cardiovascular: tachycardia Gi: non tender, soft, GT+ Gu: Tovar catheter in place Psychiatric: nonverbal Skin: no rash Fermin Baum MD Feb 18, 2020 09:16
[2020-02-18] MEDS: Metoprolol Tartrate 50mg tab GT SCH ×3 (09:46→21:21)
[2020-02-18] MEDS: Aspirin Baby 81mg GT SCH (09:46)
--- NOTE | 2020-02-18 09:58 | Nephrology Progress Note ---
Assessment/Plan Plan #hypernatremia due to free water deficit of close to 3L-improved #sepsis due to Citrobacter bacteremia #h/o CVA with hemiplegia #DM #COPD # hyperlipidemia #hypothyroidism # GERD # unspecified CHF, S/p PPM # possible hydronephrosis on CT -> monitor off IVF -> monitor for ANGELICA _> CT abd/pelvis w con done on 02/14- plan fro stent and nephrostomy - amlodipine 10mg daily - decrease free water flushes to 150 q6hr - monitor bmp daily - continue abx - avoid nephrotoxins - strict I&Os - daily weights - monitor lytes - urology eval -CT abd/pelvis w con done on 02/14- plan fro stent and nephrostomy - monitor Cr closely Subjective Subjective WBC 21 CT abd/pelvis w con done on 02/14- plan fro stent and nephrostomy Renal US: Impression: Moderate to severe left hydronephrosis versus parapelvic cysts mimicking hydronephrosis, versus combination of both. This also described on recent CT scan Atrophic right kidney. Mild right renal collecting system fullness, significance/etiology uncertain Objective Objective Last 24 Hour Vital Signs Date Time Temp Pulse Resp B/P (MAP) Pulse Ox O2 Delivery O2 Flow Rate FiO2 02/18/20 09:46 101 146/79 02/18/20 09:46 101 146/79 02/18/20 08:00 98.6 101 18 146/79 (101) 98 02/18/20 04:00 98.6 105 20 139/74 (95) 95 02/18/20 03:39 101 02/18/20 00:00 98.4 104 20 141/91 (108) 96 02/17/20 23:32 100 02/17/20 21:39 107 128/72 02/17/20 21:00 Room Air 02/17/20 20:00 98.8 107 20 128/72 (90) 96 02/17/20 20:00 102 02/17/20 16:00 116 02/17/20 13:05 98.3 105 22 149/88 (108) 95 02/17/20 12:00 105 02/17/20 12:00 98.3 105 22 149/88 (108) 95 Intake and Output 02/17/20 02/18/20 19:00 07:00 Intake Total 320 ml 960 ml Output Total 1100 ml 1200 ml Balance -780 ml -240 ml Free Water 200 ml 300 ml Tube Feeding 120 ml 660 ml Output Urine Total 1100 ml 1200 ml # Voids 1 # Bowel Movements 2 2 Laboratory Tests 02/17/20 11:30: Stool Occult Blood [Pending] Height (Feet): 5 Height (Inches): 2.00 Weight (Pounds): 127 Objective General Appearance: NAD, otherwise awake, alert, confused Neck: normal alignment, supple CV: RRR Respiratory: lungs clear, normal breath sounds, no respiratory distress Abdomen: non tender, soft, +PEG tube, c/d/i Ext: Contracted bilaterally, multiple abrasions wrapped in bandages C/D/I Cathy Fuller M.D. Feb 18, 2020 09:58
--- NOTE | 2020-02-18 10:07 | Urology Progress Note ---
Assessment/Plan Status: stable Assessment/Plan: 1. Left-sided hydronephrosis. 2. Urinary retention. 3. Neurogenic bladder. 4. Proteinuria. 5. Hematuria. 6. Pyuria. 7. Sepsis history. 8. Cystitis. 9. likely renal cyst. monitor clinically john indwelling hand irrigated and do PRN monitor renal fxn and WBC on abx, per ID voiding trial later hydro likely chronic, no stones, poss UPJ obst no other obvious source for leukocytosis plan to proceed with ureteral stent f/u on last blood cx d/w ID d/w Dr. Uribe d/w radiologist d/w pt's family Subjective Allergies: Coded Allergies: No Known Allergies (Unverified , 01/30/20) Subjective all noted Objective Last 24 Hour Vital Signs Date Time Temp Pulse Resp B/P (MAP) Pulse Ox O2 Delivery O2 Flow Rate FiO2 02/18/20 09:46 101 146/79 02/18/20 09:46 101 146/79 02/18/20 09:00 Room Air 02/18/20 08:00 98.6 101 18 146/79 (101) 98 02/18/20 04:00 98.6 105 20 139/74 (95) 95 02/18/20 03:39 101 02/18/20 00:00 98.4 104 20 141/91 (108) 96 02/17/20 23:32 100 02/17/20 21:39 107 128/72 02/17/20 21:00 Room Air 02/17/20 20:00 98.8 107 20 128/72 (90) 96 02/17/20 20:00 102 02/17/20 16:00 116 02/17/20 13:05 98.3 105 22 149/88 (108) 95 02/17/20 12:00 105 02/17/20 12:00 98.3 105 22 149/88 (108) 95 Intake and Output 02/17/20 02/18/20 19:00 07:00 Intake Total 320 ml 960 ml Output Total 1100 ml 1200 ml Balance -780 ml -240 ml Free Water 200 ml 300 ml Tube Feeding 120 ml 660 ml Output Urine Total 1100 ml 1200 ml # Voids 1 # Bowel Movements 2 2 Microbiology Date/Time Source Procedure Growth Status 02/14/20 21:00 Blood Blood Culture - Preliminary Strep Species, Gamma-Hemolytic Resulted 01/30/20 15:45 Nasal Nares MRSA Culture - Final NO METHICILLIN RESISTANT STAPH AUREUS... Complete 02/15/20 06:00 Stool Clostridium difficile Toxin Assay - Final Complete 02/11/20 14:30 Urine,Clean Catch Urine Culture - Final Enterococcus Faecium - Vre Complete 01/30/20 15:45 Rectum VRE Culture - Final NO VANCOMYCIN RESISTANT ENTEROCOCCUS ... Complete Current Medications Medications (Trade) Dose Ordered Sig/Moreno Route PRN Reason Start Time Stop Time Status Last Admin Dose Admin Acetaminophen (Tylenol) 650 mg Q4H PRN GT Mild Pain/Temp > 100.5 02/09/20 14:30 03/08/20 10:29 02/10/20 22:07 Amlodipine Besylate (Norvasc) 10 mg DAILY ORAL 02/16/20 09:00 03/17/20 08:59 02/18/20 09:46 Aspirin (ASA) 81 mg DAILY GT 02/11/20 09:00 03/27/20 08:59 02/18/20 09:46 Atorvastatin Calcium (Lipitor) 40 mg BEDTIME ORAL 02/09/20 21:00 04/29/20 20:59 02/17/20 21:39 Dextrose (Dextrose 50%) 25 ml Q30M PRN IV Hypoglycemia 02/09/20 14:30 04/29/20 18:59 Dextrose (Dextrose 50%) 50 ml Q30M PRN IV Hypoglycemia 02/09/20 14:30 04/29/20 18:59 Diphenhydramine HCl (Benadryl) 25 mg Q6H PRN ORAL Itching/Pruritis 02/09/20 15:00 03/10/20 14:59 Diphenoxylate HCl/ Atropine (Lomotil) 2.5 mg Q4H PRN GT Diarrhea 02/09/20 15:00 03/08/20 14:59 Fluconazole/ Sodium Chloride 100 ml @ 100 mls/hr Q24H IV 02/14/20 22:00 02/21/20 21:59 02/17/20 21:58 Iron Sucrose 100 mg/Sodium Chloride 60 ml @ 240 mls/hr BEDTIME IV 02/14/20 21:00 02/18/20 21:14 02/17/20 21:40 Levothyroxine Sodium (Synthroid) 25 mcg DAILY@0630 ORAL 02/10/20 06:30 03/01/20 06:29 02/18/20 06:32 Linezolid 300 ml @ 300 mls/hr EVERY 12 HOURS IVPB 02/14/20 19:30 02/21/20 19:29 02/18/20 09:47 Loperamide HCl (Imodium) 2 mg Q3H PRN NG Diarrhea 02/10/20 12:45 03/11/20 12:44 02/18/20 06:32 Meropenem 1 gm/ Sodium Chloride 55 ml @ 110 mls/hr Q12H IVPB 02/15/20 14:00 02/20/20 13:59 02/18/20 01:45 Metoprolol Tartrate (Lopressor) 50 mg Q12HR GT 02/17/20 21:00 05/13/20 08:59 02/18/20 09:46 Ondansetron HCl (Zofran) 4 mg Q6H PRN IVP Nausea & Vomiting 02/09/20 15:00 02/29/20 14:59 Laboratory Tests 02/17/20 11:30: Stool Occult Blood [Pending] Height (Feet): 5 Height (Inches): 2.00 Weight (Pounds): 127 Objective exam stable renal u/s (02/11) noted CT A/P with IV contrast (02/14) noted Timothy Leos MD Feb 18, 2020 10:07
--- NOTE | 2020-02-18 10:10 | General Progress Note ---
Assessment/Plan Status: stable Assessment/Plan: 84 year old woman with history of CVA, hemiplegia, DM, COPD, CKD, hyperlipidemia , hypothyroidism, GERD, unspecified CHF, S/p PPM brought in from SNF with hypotension, found to be septic with leukocytosis and minimal pyuria #Sepsis #Citrobacter bacteremia #Enterococcus/VRE UTI #Yeast UTI #Left Hydronephrosis #Leukocytosis - remains elevated #Hypotension - resolved #Elevated lactate - resolved #diarrhea - improved #Fever - resolved -continue inpatient level of care, cardiac monitoring -COVID 19 negative -01/29 BCx +citrobacter, repeat on 02/02 BCx negative -c diff negative on 02/03, 02/14 -Cont.imodium, lomotil per ID -pt w/fever on 02/10: BCx NGTD -02/10: UCx + enterococcus/VRE -02/13 BCx w/GPC in pairs -CT A/p and renal US reviewed -CT abd/pel w/contrast 02/14: Evidence of left renal infection/UTI/Mathew with perinephric stranding, left hydronephrosis, duplicated left renal collecting system, atrophic right kidney -ID following: zyvox, fluconazole, merrem -d/w Terry 02/17, explained risks and benefits of left uretal stent placement, pt at potential risk of worsening condition/OH/cardiac arrest however if infection source not addressed then infection may worsen which could lead to , son expressed understanding and stated he would like to proceed with the procedure. All questions were answered. Son stated he d/w Dr. Leos as well. -Dr. Leos: plan for stent today -d/w cardiology, Dr. Corley and Dr. Crain, pt is cleared from cardiac stand point for procedure #NSTEMI #HTN #HLD #Elevated BNP #S/p PPM, [facility] DDD #Sinus tachycardia -Echo 02/10: EF 40-45% -PPM interrogated: sinus tach -trop peak 31>> 8 >> 2.23 -monitor closely for evidence of fluid overload -cont. home amlodipine 10 mg -cont. medical management ASA, lipitor -lopressor 50 BID w/hold parameters -EP, Dr. Corley, following -Cardio, Dr. Crain, following: no indication for cath at this time #Hypernatremia - resolved #Hyponatremia #Unspecified CKD #One Kidney -monitor renal function -FWF per nephro -Nephro following, recs appreciated #anemia #Thrombocytosis -downtrending, likely 2/2 to infectious process -cont. to monitor -no signs of bleeding -s/p 1 U PRBC on 02/16/20 -Heme, Dr. 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 Additional 25 mins spent w/family counseling. Subjective ROS Limited/Unobtainable: Yes - Patient a phasic Allergies: Coded Allergies: No Known Allergies (Unverified , 01/30/20) Subjective Follow up for left hydronephrosis, worsening leukocytosis, NSTEMI, gram negative bacteremia. D/w Urology and son who is agreeable to stent placement. Plan for stent today. Pt awake, alert, appears comfortable, non-verbal/aphasic at b/l. Objective Last 24 Hour Vital Signs Date Time Temp Pulse Resp B/P (MAP) Pulse Ox O2 Delivery O2 Flow Rate FiO2 02/18/20 09:46 101 146/79 02/18/20 09:46 101 146/79 02/18/20 09:00 Room Air 02/18/20 08:00 98.6 101 18 146/79 (101) 98 02/18/20 04:00 98.6 105 20 139/74 (95) 95 02/18/20 03:39 101 02/18/20 00:00 98.4 104 20 141/91 (108) 96 02/17/20 23:32 100 02/17/20 21:39 107 128/72 02/17/20 21:00 Room Air 02/17/20 20:00 98.8 107 20 128/72 (90) 96 02/17/20 20:00 102 02/17/20 16:00 116 02/17/20 13:05 98.3 105 22 149/88 (108) 95 02/17/20 12:00 105 02/17/20 12:00 98.3 105 22 149/88 (108) 95 Intake and Output 02/17/20 02/18/20 19:00 07:00 Intake Total 320 ml 960 ml Output Total 1100 ml 1200 ml Balance -780 ml -240 ml Free Water 200 ml 300 ml Tube Feeding 120 ml 660 ml Output Urine Total 1100 ml 1200 ml # Voids 1 # Bowel Movements 2 2 Laboratory Tests 02/17/20 11:30: Stool Occult Blood [Pending] Height (Feet): 5 Height (Inches): 2.00 Weight (Pounds): 127 Objective General Appearance: NAD, non-verbal, awake, alert, cachetic, appears comfortable in bed HEENT: NCAT, MMM, EOMi CV: RRR Respiratory: lungs clear, normal breath sounds, no respiratory distress Abdomen: non tender, soft, +PEG tube, c/d/i Ext: Contracted bilaterally, multiple abrasions wrapped in bandages C/D/I Skin: PPM in right upper chest wall Lorna Uribe M.D. Feb 18, 2020 10:10
[2020-02-18 11:05] LABS: HEMATOCRIT 27.7 % (37.0-47.0); HEMOGLOBIN 9.5 G/DL (12.0-16.0); MEAN CORPUSCULAR VOLUME 82 FL (80-99); PLATELET COUNT 399 K/UL (150-450); RED BLOOD COUNT 3.36 M/UL (4.20-5.40); RED CELL DISTRIBUTION WIDTH 13.7 % (11.6-14.8)
[2020-02-18 11:09] LABS: ANION GAP 11 mmol/L (5-15); BLOOD UREA NITROGEN 17 mg/dL (7-18); CALCIUM 8.2 MG/DL (8.5-10.1); CARBON DIOXIDE 22 MMOL/L (21-32); CHLORIDE 102 MMOL/L (98-107); CREATININE 0.8 MG/DL (0.55-1.30); SODIUM 135 MMOL/L (136-145)
--- NOTE | 2020-02-18 11:22 | Cardiology Progress Note ---
Assessment/Plan Status: stable Assessment/Plan Assessment/Plan Assessment/Plan: CVA Non verbal DM COPD CKD CHF GERD Pacemaker Hypotension Sepsis -Troponin down trending -Monitor for arrhythmias -No indication for cath at this time. -Continue IV fluids -Continue aspirin/statin/metoprolol -PPM with normal function -Clear to proceed with ureteral stent Subjective Cardiovascular: Reports: no symptoms Respiratory: Reports: no symptoms Gastrointestinal/Abdominal: Reports: no symptoms Genitourinary: Reports: no symptoms Subjective No acute events, Patient AAOx1 no distress tolerating tube feeds, WBC elevated, troponin down trending, tachycardic remains albeit mild, No shortness of breath or distress. CTA abdomen done with no kidney stones, small pleural effusions. Planning on placing ureteral stent for hydronephrosis Objective Last 24 Hour Vital Signs Date Time Temp Pulse Resp B/P (MAP) Pulse Ox O2 Delivery O2 Flow Rate FiO2 02/18/20 09:46 101 146/79 02/18/20 09:46 101 146/79 02/18/20 09:00 Room Air 02/18/20 08:00 98 02/18/20 08:00 98.6 101 18 146/79 (101) 98 02/18/20 04:00 98.6 105 20 139/74 (95) 95 02/18/20 03:39 101 02/18/20 00:00 98.4 104 20 141/91 (108) 96 02/17/20 23:32 100 02/17/20 21:39 107 128/72 02/17/20 21:00 Room Air 02/17/20 20:00 98.8 107 20 128/72 (90) 96 02/17/20 20:00 102 02/17/20 16:00 116 02/17/20 13:05 98.3 105 22 149/88 (108) 95 02/17/20 12:00 105 02/17/20 12:00 98.3 105 22 149/88 (108) 95 General Appearance: no apparent distress, alert EENT: PERRL/EOMI, normal ENT inspection, TMs normal, pharynx normal Neck: non-tender, normal alignment, supple, normal inspection, no JVD Rhythm: NSR Cardiovascular: normal peripheral pulses, normal rate, regular rhythm Respiratory/Chest: chest wall non-tender, lungs clear, normal breath sounds, no respiratory distress Abdomen: normal bowel sounds, soft, no organomegaly Extremities: normal range of motion, non-tender, normal inspection, no calf tenderness, no swelling 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, no motor/sensory deficits Intake and Output 02/17/20 02/18/20 19:00 07:00 Intake Total 320 ml 960 ml Output Total 1100 ml 1200 ml Balance -780 ml -240 ml Free Water 200 ml 300 ml Tube Feeding 120 ml 660 ml Output Urine Total 1100 ml 1200 ml # Voids 1 # Bowel Movements 2 2 Laboratory Tests Test 02/17/20 11:30 02/18/20 10:40 Stool Occult Blood Pending White Blood Count 20.0 K/UL (4.8-10.8) H Red Blood Count 3.36 M/UL (4.20-5.40) L Hemoglobin 9.5 G/DL (12.0-16.0) L Hematocrit 27.7 % (37.0-47.0) L Mean Corpuscular Volume 82 FL (80-99) Mean Corpuscular Hemoglobin 28.2 PG (27.0-31.0) Mean Corpuscular Hemoglobin Concent 34.2 G/DL (32.0-36.0) Red Cell Distribution Width 13.7 % (11.6-14.8) Platelet Count 399 K/UL (150-450) Mean Platelet Volume 5.9 FL (6.5-10.1) L Neutrophils (%) (Auto) % (45.0-75.0) Lymphocytes (%) (Auto) % (20.0-45.0) Monocytes (%) (Auto) % (1.0-10.0) Eosinophils (%) (Auto) % (0.0-3.0) Basophils (%) (Auto) % (0.0-2.0) Neutrophils % (Manual) Pending Lymphocytes % (Manual) Pending Platelet Estimate Pending Platelet Morphology Pending Sodium Level 135 MMOL/L (136-145) L Potassium Level 4.0 MMOL/L (3.5-5.1) Chloride Level 102 MMOL/L (98-107) Carbon Dioxide Level 22 MMOL/L (21-32) Anion Gap 11 mmol/L (5-15) Blood Urea Nitrogen 17 mg/dL (7-18) Creatinine 0.8 MG/DL (0.55-1.30) Estimat Glomerular Filtration Rate > 60 mL/min (>60) Glucose Level 186 MG/DL (74-106) H Calcium Level 8.2 MG/DL (8.5-10.1) L Dennis Crain MD Feb 18, 2020 11:22
--- NOTE | 2020-02-18 12:25 | Cardiac Electrophysiology PN ---
Assessment/Plan Assessment/Plan 1. Status post right-sided [facility] DDD pacer implantation. Interrogation showed No Pacer Mediated tachycardia Just sinus tach likely due to acute SD with peak troponin 31. Continue Lopressor. 2. Acute NSTEMI with peak troponin 31. Down to 2. Non verbal. Continue aspirin, Lopressor and Lipitor. Repeat Echo on 02/11/20 EF 40-45% FU Dr. Crain 3. Diabetes. 4. Hypertension, on Toprol 25 daily. 5. Status post septic shock with WBC 27 K. On iv Abx per Dr. Naylor Now WBC 22K 6. Severe anemia. Hemoglobin improved from 7.5 to 9.4. 7. Dementia. 8. CVA. 10. COPD. 11. ARF and hydronephrosis, Cr now normal. Patient was cleared by Dr Crain from Cardiac stand point. Stable from EP stand point for the ureteral stent placement if has to be done. 12. S/P PEG placement. DW RN Subjective Subjective Nonverbal responsive in sinus with V tracking at around 100-110. Comfortable in NAD. NPO for ureteral stent and is already cleared by Dr. Crain Objective Last 24 Hour Vital Signs Date Time Temp Pulse Resp B/P (MAP) Pulse Ox O2 Delivery O2 Flow Rate FiO2 02/18/20 09:46 101 146/79 02/18/20 09:46 101 146/79 02/18/20 09:00 Room Air 02/18/20 08:00 98 02/18/20 08:00 98.6 101 18 146/79 (101) 98 02/18/20 04:00 98.6 105 20 139/74 (95) 95 02/18/20 03:39 101 02/18/20 00:00 98.4 104 20 141/91 (108) 96 02/17/20 23:32 100 02/17/20 21:39 107 128/72 02/17/20 21:00 Room Air 02/17/20 20:00 98.8 107 20 128/72 (90) 96 02/17/20 20:00 102 02/17/20 16:00 116 02/17/20 13:05 98.3 105 22 149/88 (108) 95 Intake and Output 02/17/20 02/18/20 19:00 07:00 Intake Total 320 ml 960 ml Output Total 1100 ml 1200 ml Balance -780 ml -240 ml Free Water 200 ml 300 ml Tube Feeding 120 ml 660 ml Output Urine Total 1100 ml 1200 ml # Voids 1 # Bowel Movements 2 2 Laboratory Tests Test 02/18/20 10:40 White Blood Count 20.0 K/UL (4.8-10.8) H Red Blood Count 3.36 M/UL (4.20-5.40) L Hemoglobin 9.5 G/DL (12.0-16.0) L Hematocrit 27.7 % (37.0-47.0) L Mean Corpuscular Volume 82 FL (80-99) Mean Corpuscular Hemoglobin 28.2 PG (27.0-31.0) Mean Corpuscular Hemoglobin Concent 34.2 G/DL (32.0-36.0) Red Cell Distribution Width 13.7 % (11.6-14.8) Platelet Count 399 K/UL (150-450) Mean Platelet Volume 5.9 FL (6.5-10.1) L Neutrophils (%) (Auto) % (45.0-75.0) Lymphocytes (%) (Auto) % (20.0-45.0) Monocytes (%) (Auto) % (1.0-10.0) Eosinophils (%) (Auto) % (0.0-3.0) Basophils (%) (Auto) % (0.0-2.0) Differential Total Cells Counted 100 Neutrophils % (Manual) 97 % (45-75) H Lymphocytes % (Manual) 2 % (20-45) L Monocytes % (Manual) 1 % (1-10) Eosinophils % (Manual) 0 % (0-3) Basophils % (Manual) 0 % (0-2) Band Neutrophils 0 % (0-8) Platelet Estimate Adequate Platelet Morphology Normal Hypochromasia 2+ Anisocytosis 1+ Sodium Level 135 MMOL/L (136-145) L Potassium Level 4.0 MMOL/L (3.5-5.1) Chloride Level 102 MMOL/L (98-107) Carbon Dioxide Level 22 MMOL/L (21-32) Anion Gap 11 mmol/L (5-15) Blood Urea Nitrogen 17 mg/dL (7-18) Creatinine 0.8 MG/DL (0.55-1.30) Estimat Glomerular Filtration Rate > 60 mL/min (>60) Glucose Level 186 MG/DL (74-106) H Calcium Level 8.2 MG/DL (8.5-10.1) L Objective HEAD AND NECK: Shows no JVD. LUNGS: Coarse rhonchi. CARDIOVASCULAR: Regular S1 and S2. Pacemaker is in the right subclavian. ABDOMEN: Soft.PEG in place EXTREMITIES: Contracted. Oscar Corley MD Feb 18, 2020 12:25
[2020-02-18] MEDS ORDERED: fentaNYL 100 mcg/2 mL IV ONE (12:41)
[2020-02-18] MEDS ORDERED: Midazolam 2mg/2ml Inj ONE (12:42)
[2020-02-18] MEDS ORDERED: LR 1000ml 1,000 ML IVLG SCH (12:48)
--- NOTE | 2020-02-18 12:52 | Immediate Post-Op Evaluation ---
Immediate Post-Op Evalulation Immediate Post-Op Evalulation Procedure: Cystoscopy, L Ureteral StenT Placement Date of Evaluation: Feb 18, 2020 Time of Evaluation: 16:05 IV Fluids: 300 LR Blood Products: 0 Estimated Blood Loss: 10 Urinary Output: 0 Blood Pressure Systolic: 99 Blood Pressure Diastolic: 58 Pulse Rate: 99 Respiratory Rate: 16 O2 Sat by Pulse Oximetry: 100 Temperature (Fahrenheit): 97.1 Pain Score (1-10): 1 Nausea: No Vomiting: No Complications 0 Patient Status: awake, reacts, patent, none Hydration Status: adequate Dru Gram Ancef IV Given Within 1 Hr of Incision: Yes Time Given: 14:51 Danish Ortega MD Feb 18, 2020 12:52
[2020-02-18] MEDS ORDERED: DiphenhydrAMINE 50mg/ml Inj IVP PRN (13:00)
[2020-02-18] MEDS ORDERED: oxyCODONE HCL/Acetaminophen 5/325mg ORAL PRN (13:00)
[2020-02-18] MEDS ORDERED: HYDROcodone/Acetamin 7.5/325 tab ORAL PRN (13:00)
[2020-02-18] MEDS ORDERED: Ketorolac 30mg Inj IV PRN ×2 (13:00)
[2020-02-18] MEDS ORDERED: Metoclopramide 10mg/2ml Inj IVP PRN (13:00)
[2020-02-18] MEDS ORDERED: fentaNYL 100 mcg/2 mL IV PRN (13:00)
[2020-02-18] MEDS ORDERED: Midazolam 2mg/2ml Inj IVP PRN (13:00)
[2020-02-18] MEDS ORDERED: Atropine Sulfate 0.4mg/ml inj IVP PRN (13:00)
[2020-02-18] MEDS ORDERED: LORazepam Inj 2mg/ml 1ml IV PRN (13:00)
[2020-02-18] MEDS ORDERED: Hydromorphone 0.5mg/0.5ml inj IVP PRN (13:00)
[2020-02-18] MEDS ORDERED: HYDROcodone/Acetamin 5/325 tab ORAL PRN (13:00)
[2020-02-18] MEDS ORDERED: Meperidine 25mg/0.5ml Inj (FOR RIGORS ONLY) IV PRN (13:00)
[2020-02-18] MEDS ORDERED: Labetalol 5mg/ml 20ml vial IV PRN (13:00)
--- NOTE | 2020-02-18 13:00 | Anethesia Preoperative Eval ---
Anesthesia Pre-op PMH/ROS General Date of Evaluation: Feb 18, 2020 Time of Evaluation: 12:23 Anesthesiologist: Jordan ASA Score: ASA 4 - Emergency Mallampati Score Class I : Soft palate, uvula, fauces, pillars visible Class II: Soft palate, uvula, fauces visible Class III: Soft palate, base of uvula visible Class IV: Only hard plate visible Mallampati Classification: Class II Surgeon: Dafne Diagnosis: L Hydronephrosis Surgical Procedure: Cystoscopy, L Ureteral Stent Placement Anesthesia History: none Social History: smoking Family History: no anesthesia problems Allergies: Coded Allergies: No Known Allergies (Unverified , 01/30/20) Medications: see eMAR Patient NPO?: Yes NPO Date: Feb 18, 2020 NPO Time: 914 Past Medical History Cardiovascular: Reports: HTN, [place] - Acute Stemi, Troponin Peak=31, arrhythmia - Pacemmaker Pulmonary: Reports: COPD Gastrointestinal/Genitourinary: Reports: ESRD - ARF with L Hydronephrosis Neurologic/Psychiatric: Reports: dementia, CVA Endocrine: Reports: DM Hematology/Immune: Reports: anemia, other - Sedtic Shock Musculoskeletal/Integumentary: Reports: other - Contracted PSxH Narrative: Pacemaker, PEG placement Anesthesia Pre-op Phys. Exam Physician Exam Last Vital Signs Date Time Temp Pulse Resp B/P (MAP) Pulse Ox O2 Delivery O2 Flow Rate FiO2 02/18/20 09:46 101 146/79 02/18/20 09:00 Room Air 02/18/20 08:00 98.6 18 98 Constitutional: NAD Neurologic: CN 2-12 intact Cardiovascular: RRR Respiratory: CTA Gastrointestinal: S/NT/ND Airway Exam Mallampati Score: Class II MO: limited ROM: limited Teeth: missing Anesthesia Pre-op A/P Labs Hematology Test 02/18/20 10:40 White Blood Count 20.0 K/UL (4.8-10.8) H Red Blood Count 3.36 M/UL (4.20-5.40) L Hemoglobin 9.5 G/DL (12.0-16.0) L Hematocrit 27.7 % (37.0-47.0) L Mean Corpuscular Volume 82 FL (80-99) Mean Corpuscular Hemoglobin 28.2 PG (27.0-31.0) Mean Corpuscular Hemoglobin Concent 34.2 G/DL (32.0-36.0) Red Cell Distribution Width 13.7 % (11.6-14.8) Platelet Count 399 K/UL (150-450) Mean Platelet Volume 5.9 FL (6.5-10.1) L Neutrophils (%) (Auto) % (45.0-75.0) Lymphocytes (%) (Auto) % (20.0-45.0) Monocytes (%) (Auto) % (1.0-10.0) Eosinophils (%) (Auto) % (0.0-3.0) Basophils (%) (Auto) % (0.0-2.0) Differential Total Cells Counted 100 Neutrophils % (Manual) 97 % (45-75) H Lymphocytes % (Manual) 2 % (20-45) L Monocytes % (Manual) 1 % (1-10) Eosinophils % (Manual) 0 % (0-3) Basophils % (Manual) 0 % (0-2) Band Neutrophils 0 % (0-8) Platelet Estimate Adequate Platelet Morphology Normal Hypochromasia 2+ Anisocytosis 1+ Chemistry Test 02/18/20 10:40 Sodium Level 135 MMOL/L (136-145) L Potassium Level 4.0 MMOL/L (3.5-5.1) Chloride Level 102 MMOL/L (98-107) Carbon Dioxide Level 22 MMOL/L (21-32) Anion Gap 11 mmol/L (5-15) Blood Urea Nitrogen 17 mg/dL (7-18) Creatinine 0.8 MG/DL (0.55-1.30) Estimat Glomerular Filtration Rate > 60 mL/min (>60) Glucose Level 186 MG/DL (74-106) H Calcium Level 8.2 MG/DL (8.5-10.1) L Risk Assessment & Plan Assessment: ASA 4E Plan: GA, SED Status Change Before Surgery: No Pre-Antibiotics Dru Gram Ancef IV Given Within 1 Hr of Incision: Yes Time Given: 14:51 Danish Ortega MD Feb 18, 2020 13:00
--- NOTE | 2020-02-18 13:01 | 48 Hour Post Anesthesia Eval ---
Post Anesthesia Evaluation Procedure: Cystoscopy, L Ureteral StenT Placement Date of Evaluation: Feb 18, 2020 Time of Evaluation: 18:12 Blood Pressure Systolic: 154 0: 98 Pulse Rate: 102 Respiratory Rate: 18 Temperature (Fahrenheit): 98 O2 Sat by Pulse Oximetry: 96 Airway: patent Nausea: No Vomiting: No Pain Intensity: 1 Hydration Status: adequate Cardiopulmonary Status: Stable Mental Status/LOC: patient returned to baseline Follow-up Care/Observations: 0 Post-Anesthesia Complications: 0 Follow-up care needed: N/A Danish Ortega MD Feb 18, 2020 13:01
[2020-02-18] MEDS ORDERED: Lidocaine 1% MPF 10mg/ml 5ml ONE (13:28)
[2020-02-18] MEDS ORDERED: Sodium Chloride 10ml vial INJ ONE (13:28)
[2020-02-18] MEDS ORDERED: Iothalamate Meglumine 60% 50ML INJ ONE (13:29)
[2020-02-18] MEDS ORDERED: Ketamine 500mg/10ml vial ONE (14:02)
--- NOTE | 2020-02-18 14:28 | Diagnostic Imaging Report ---
Indications: Dysphagia Technique: Patient ingested multiple substances under the supervision of speech pathology. Video fluoroscopic recording performed. Total fluoroscopy time 198 seconds. Total dose area product 0.60862 mGycm2 Total number of images-5 Comparison: none Findings: With ingestion of thin liquid barium, there is delayed initiation of deglutition, and considerable early pooling of contrast within the piriform sinuses. There is aspiration of contrast prior to swallowing. This and nectar thick liquid barium demonstrates delayed initiation of deglutition, pooling of contrast within the piriform sinuses prior to swallowing, and passive contrast aspiration prior to entering swallowing. Impression: Positive for aspiration of thin and nectar thick liquid barium Please refer to speech pathology report for more detailed analysis
[2020-02-18] MEDS ORDERED: LR 1000ml ONE (14:30)
[2020-02-18] MEDS ORDERED: Propofol 200mg/20ml IV ONE (14:30)
[2020-02-18] MEDS ORDERED: NS Irrig 1000ml ONE (14:30)
[2020-02-18] MEDS ORDERED: Sterile Water Irrig 1000ml IRRIG ONE (14:30)
[2020-02-18] MEDS ORDERED: Sterile Water Irrig 2000ml IRRIG ONE ×2 (14:30→15:15)
--- NOTE | 2020-02-18 14:46 | Pre-Procedure Note/Attestation ---
Pre-Procedure Note/Attestation Complete Prior to Procedure Planned Procedure: left Procedure Narrative: cysto, RPG, ureteroscopy with dilation, ureteral stent Indications for Procedure Pre-Operative Diagnosis: hydro, pyelo Attestation I attest that I discussed the nature of the procedure; its benefits; risks and complications; and alternatives (and the risks and benefits of such alternatives ), prior to the procedure, with the patient (or the patient's legal malt liquors sales representative). I attest that, if there was a reasonable possibility of needing a blood transfusion, the patient (or the patient's legal malt liquors sales representative) was given the [facility] standardized written summary, pursuant to the [place] Blood Safety Act ([place] Health and Safety Code # 1645, as amended). I attest that I re-evaluated the patient just prior to the surgery and that there has been no change in the patient's H&P, except as documented below: Timothy Leos MD Feb 18, 2020 14:46
--- NOTE | 2020-02-18 14:58 | Surgery Progress Note ---
Surgery Progress Note Subjective Additional Comments no acute events labs reviewed imaging reviewed exam stable Objective Last 24 Hour Vital Signs Date Time Temp Pulse Resp B/P (MAP) Pulse Ox O2 Delivery O2 Flow Rate FiO2 02/18/20 12:00 98.1 95 18 126/87 (100) 95 02/18/20 12:00 96 02/18/20 09:46 101 146/79 02/18/20 09:46 101 146/79 02/18/20 09:00 Room Air 02/18/20 08:00 98 02/18/20 08:00 98.6 101 18 146/79 (101) 98 02/18/20 04:00 98.6 105 20 139/74 (95) 95 02/18/20 03:39 101 02/18/20 00:00 98.4 104 20 141/91 (108) 96 02/17/20 23:32 100 02/17/20 21:39 107 128/72 02/17/20 21:00 Room Air 02/17/20 20:00 98.8 107 20 128/72 (90) 96 02/17/20 20:00 102 02/17/20 16:00 116 I&O Intake and Output 02/17/20 02/18/20 19:00 07:00 Intake Total 320 ml 960 ml Output Total 1100 ml 1200 ml Balance -780 ml -240 ml Free Water 200 ml 300 ml Tube Feeding 120 ml 660 ml Output Urine Total 1100 ml 1200 ml # Voids 1 # Bowel Movements 2 2 Dressing: saturated Wound: clean Cardiovascular: RSR Respiratory: clear, decreased breath sounds Abdomen: soft, non-tender, present bowel sounds Extremities: edema, no tenderness, no cyanosis Laboratory Tests Test 02/18/20 10:40 White Blood Count 20.0 K/UL (4.8-10.8) H Red Blood Count 3.36 M/UL (4.20-5.40) L Hemoglobin 9.5 G/DL (12.0-16.0) L Hematocrit 27.7 % (37.0-47.0) L Mean Corpuscular Volume 82 FL (80-99) Mean Corpuscular Hemoglobin 28.2 PG (27.0-31.0) Mean Corpuscular Hemoglobin Concent 34.2 G/DL (32.0-36.0) Red Cell Distribution Width 13.7 % (11.6-14.8) Platelet Count 399 K/UL (150-450) Mean Platelet Volume 5.9 FL (6.5-10.1) L Neutrophils (%) (Auto) % (45.0-75.0) Lymphocytes (%) (Auto) % (20.0-45.0) Monocytes (%) (Auto) % (1.0-10.0) Eosinophils (%) (Auto) % (0.0-3.0) Basophils (%) (Auto) % (0.0-2.0) Differential Total Cells Counted 100 Neutrophils % (Manual) 97 % (45-75) H Lymphocytes % (Manual) 2 % (20-45) L Monocytes % (Manual) 1 % (1-10) Eosinophils % (Manual) 0 % (0-3) Basophils % (Manual) 0 % (0-2) Band Neutrophils 0 % (0-8) Platelet Estimate Adequate Platelet Morphology Normal Hypochromasia 2+ Anisocytosis 1+ Sodium Level 135 MMOL/L (136-145) L Potassium Level 4.0 MMOL/L (3.5-5.1) Chloride Level 102 MMOL/L (98-107) Carbon Dioxide Level 22 MMOL/L (21-32) Anion Gap 11 mmol/L (5-15) Blood Urea Nitrogen 17 mg/dL (7-18) Creatinine 0.8 MG/DL (0.55-1.30) Estimat Glomerular Filtration Rate > 60 mL/min (>60) Glucose Level 186 MG/DL (74-106) H Calcium Level 8.2 MG/DL (8.5-10.1) L Plan Problems: (1) Septic shock Assessment & Plan: Patient presented to emergency department with sepsis hypotension tachycardia lactic acidosis leukocytosis. On IV antibiotics Labs improving IV hydration Continue tube feeds advance goal as tolerated Abdominal exam does elicit patient to retract a bit but she is not tender peritonitis or without rebound or significant guarding. exam improved Likely startle effect rather than intra-abdominal pathology will follow with serial exams continue with current care plan thank you for let me participate in patient's care leukocytosis. c diff negative. blood cultures noted abx as per ID Severe left hydronephrosis versus parapelvic cysts. No definite obstructing stone. Mild bladder wall thickening with small gas foci in the bladder, concerning for cystitis. Please correlate with urinalysis. Acute NSTEMI with peak troponin 31 as per cardiology wbc fever micro worsening leukocytosis -Small bilateral pleural effusions with passive atelectasis and lung base motion artifact. -Pacer device leads in the heart. -Tovar catheter in the decompressed urinary bladder. - No urolithiasis seen. -Consider left renal collecting system infection/UTI/pyelonephritis in the proper context given moderate left perinephric stranding which is asymmetric compared with the right. -Similar to prior study left inferior renal moiety moderate hydronephrosis without visualized cause. 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 -If there is further desire to evaluate collecting system dilation, consider repeating the study with CT hematuria protocol. -Sacral decubitus ulcer, correlate with presentation. - Rapid transit of contrast through the GI tract could be incidental or could be seen with an infectious or inflammatory enteritis. -Indeterminate left adrenal 2.1 cm enhancing nodule, if felt to alter clinical management consider additional evaluation adrenal gland. CONSIDER correlation with prior imaging studies. -Right renal cortical scarring due to old infectious or ischemic insults. -Atherosclerotic vascular disease. - Hysterectomy. -Unchanged osteopenia and degenerative spine findings. Unchanged old right possible lesser trochanter fracture versus extensive right hip capsular calcifications. 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 The lower pole collecting system is markedly hydronephrotic. The upper pole collecting system is normal in appearance. There is inflammatory change surrounding the lower pole of the left kidney, with some fluid tracking caudad along Gerota's fascia. There is either a cyst or dilated calyx in the left lower pole, suspect the latter as this appears to communicate with the collecting system along the anterior border of the kidney, best visualized on the sagittal reconstructed images. No obstructing stone or mass is demonstrated. There is no hydroureter. The upper pole collecting system is nondilated. There is probably only a single left ureter, but this cannot be stated for certain. The right kidney demonstrates subcentimeter low-attenuation lesions which are too small to characterize, most likely benign simple cysts. There is a Tovar catheter within the bladder, which contains some gas presumably related to the Tovar catheterization. There are retrococcygeal decubitus changes and suspicion for some ulceration. This is more evident than on the prior exam. No definite osseous destruction. The liver, gallbladder, bile ducts, pancreas, spleen, adrenals are unremarkable. No retroperitoneal or mesenteric mass or adenopathy. No pelvic mass or adenopathy. The uterus is absent. Ingested contrast has reached the distal colon, and there is some evidence of rectal fecal incontinence. No evidence of colonic diverticulosis or diverticulitis. The appendix is normal. No small bowel distention. No small bowel wall thickening. There is a small amount of free pelvic fluid. Distal esophagus is unremarkable. The stomach contains a gastrostomy which appears to be well positioned. Fairly extensive chronic degenerative changes are seen about both hips. There is some infiltration of the subcutaneous fat in the bilateral neck regions which is nonspecific. There are degenerative changes of the lumbar spine Included lung bases demonstrate small bilateral pleural effusions. Hazy parenchymal disease is seen in the bilateral lower lobes. 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 Inflammatory change is seen surrounding the lower pole left kidney. This is new since the prior exam, could inflammation secondary to acute obstruction versus infection, suspect the latter. Etiology of obstruction not demonstrated, could a congenital ureteropelvic junction obstruction Retrococcygeal decubitus changes and possibly ulceration. Correlate with clinical findings Bilateral pleural effusions. This is new since the previous study. 1.6 cm left adrenal mass, much more clearly demonstrated on the previous exam. Consider follow-up with adrenal protocol CT if this would affect management Gastrostomy, Tovar catheter, pacemaker incidentally noted Evidence of prior hysterectomy Incidental findings of degenerative disc disease, bilateral hip degenerative changes (2) Decubitus skin ulcer Assessment & Plan: 84-year-old female presented on admission with multiple decubitus skin ulcers and skin concerns. Patient identified to have a unstageable sacral lower back decubitus ulcer, periwound maceration, area of necrotic eschar soft, no drainage, no abscess, no foul odor Pt presented on admission with contractures, Multiple Pressure injuries.open DTPI sacrum.Wound is open at sacrococcygeal area(40%), with soft necrotic base ( L)5.5cm x (W)4.5cm. Surrounding base of wound is maroon and indurated. Total area of sacral DTPI measures(L) 12.5cm x (W)15cm. Non-blanching erythema periwound.In addition several small partial thickness wounds noted along Perineum.` Areas of hyperpigmentation noted to L and R trochanteric. Full thickness wound R knee.(L)1.1cm x (W)1.5cm.1 Base of wound 90% pink granulation,10% slough noted in center of wound. Borders are macerated.small amt serous exudate. No odor noted. No erythema or fluctuance noted periwound. Non-blanching erythema with fluctuance R heel. Unstageable pressure injury R hallux. Base of wound is 100% soft necrosis. Edges adherent and dry.No odor or exudate noted.Surrounding darker skin tone without erythema or fluctuance(L)2.6cm x (W)3cm. DTPI R Ankle(L)0.9cm x (W)1.6cm. Base of wound is fluctuant, maroon with marginal erythema. Periwound without erythema or fluctuance. Unstageable pressure injury distal/lateral R foot. Base of wound 100% soft necrosis with surrounding non-blanching erythema with fluctuance.(L)2cm x (W) 0.9cm. Stable dry eschar medial/lateral R foot (L)0.4cm x (W)0.8cm. Stable dry eschar lateral L heel.(L)1.9cm x (W)2.2cm. No erythema or fluctuance periwound. Unstable pressure injury medial/lateral L foot. Base of wound is 100% necrotic but dry.(L)0.7cm x (W)0.8cm. Unstageable pressure injury distal/lateral L foot. Base of wound is 100% necrotic but dry. (L)1.2cm x (W)1.6cm.non-blanching erythema without fluctuance periwound. Non-blanching erythema without fluctuance lateral L 5th metatarsal.(L)1.5cm x (W )0.5cm. Open DTPI L Hallux.Base of wound has mixed necrosis and slough with surrounding base of wound maroon with fluctuance. Non-blanching erythema without elevation in skin temp,or fluctuance periwound. Tx.plan: Cleanse Sacral wound with Saline. Apply TheraHoney. Apply Moisture Barrier Paste Periwound. Cover with Optifoam drsg. Change Daily and prn. Swab R nee with Betadine. Cover with Optifoam drsg every 3 days and prn. Swab wounds R foot with Betadine. Cover each wound with Optifoam drsg. Change every 3 days and prn. Swab wounds L foot with Betadine. Cover each wound with Optifoam drsg. Change every 3 days and prn. Reposition at least every 2hours or as tolerated. Place pillow between knees. Off-load heels with Pillow. APM/ARIEL Mattress. DAILY ESTIMATED NEEDS: Needs based on Wounds, underweight 50kg 30-35 kcals/kg 2811-4985 total kcals 1.25-2 g protein/kg 63-100 g total protein 25-30 mL/kg 8102-3289 total fluid mLs NUTRITION DIAGNOSIS: Increased kcal and pro needs r/t underweight status and wound healing as evidenced by pt @85% [place] Body Weight w/ multiple wounds, eval pending, pt is PEG dep. CURRENT TF:Glucerna 1.5 @60ml x20 hrs ENTERAL NUTRITION RECOMMENDATIONS: Maintain current TF as tolerated: Glucerna 1.5 @60ml/hr x20 hrs to provide 1200ml, 1800 kcal, 99g pro, 911ml free H2o -> Monitor for hypoglycemia and need to change to non carb control formula -> Flush per MD. HOB over 30 degrees ADDITIONAL RECOMMENDATIONS: 1) On iso, per SNF pt is: 65 inches + 110#/50kg 2) Wound care: add MATT in 4oz H2O BID via GT F/up w/ WC eval 3) Maintain calibrated bed scale wts 4) Monitor for continued hypoglycemic events, need for D5 or TF change Luther Mercedes Feb 18, 2020 14:57
[2020-02-18] MEDS ORDERED: ePHEDrine 50mg/ml Inj ONE (15:22)
[2020-02-18] MEDS ORDERED: NS Irrig 2000ml IRRIG ONE (15:25)
--- NOTE | 2020-02-18 15:42 | Brief Operative Note ---
Immediate Post Operative Note Operative Note Pre-op Diagnosis: hydro, pyelo Procedure: cysto, left RPG, ureteroscopy with dilation, ureteral stent Post-op Diagnosis: same as pre-op Surgeon: monico Anesthesiologist: Jayesh Anesthesia: general Specimen: yes - urine from left kidney for C+S Complications: none Condition: stable Fluids: NS Estimated Blood Loss: none Implant(s) used?: Yes - 7f x 24 cm left ureteral JJ stent Timothy Leos MD Feb 18, 2020 15:42
--- NOTE | 2020-02-18 16:38 | Diagnostic Imaging Report ---
INDICATION: Pain, intraoperative TECHNIQUE: Intraoperative imaging Fluoroscopy time: 79 seconds Total dose: 0.23221 mGym2 Total number of images: 11 COMPARISON: Reference made to CT scan dated 02/15/2020 FINDINGS: Intraoperative images demonstrate opacification of the left ureter which is normal in caliber. This opacifies the left renal collecting system, which, as demonstrated on recent CT scan is markedly dilated. The hypoattenuating lower pole structure demonstrated on recent CT is opacified, demonstrated to represent a calyx and not a cyst. Subsequent images document placement of a nephroureteral stent in good position IMPRESSION: Intraoperative imaging, as described
--- NOTE | 2020-02-18 18:00 | Operative Note - Dictated ---
DATE OF OPERATION: 02/18/2020 PREOPERATIVE DIAGNOSES: Left-sided hydronephrosis and pyelonephritis. 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 PROCEDURE PERFORMED: Cystoscopy with left retrograde pyelogram, left ureteroscopy, dilation of ureter, placement of double-J stent. OPERATING SURGEON: Timothy Leos M.D. ANESTHESIOLOGIST: Danish Ortega M.D. ANESTHESIA: General by laryngeal mask. INDICATION FOR PROCEDURE: This is a pleasant 84-year-old female. She has been hospital for an extended course. She has had persistent leukocytosis and had extensive workup and was found to have what appeared to be left-sided hydronephrosis versus parapelvic cyst. She eventually had a CT scan with IV contrast, which showed it to be more likely hydronephrosis without an obvious stone. The patient has had positive blood cultures and positive urine cultures before and she has had persistent leukocytosis and after discussion with the primary service and Infectious Diseases doctor we felt that the most likely source was the kidney and the decision was made to place a stent to see if this will help with her condition. The nature of the procedure was discussed with the patient's family who are decision makers, possible risks and complications discussed and consent was obtained. No guarantees were given or implied. FINDINGS: The patient had hydronephrosis of the left kidney presumably secondary to UPJ obstruction. There appeared to be some cloudy urine in the kidney. Stent was placed. PROCEDURE IN DETAIL: Informed consent was obtained from the patient's family. The patient was then brought to the operative room and placed in supine position. After successful general anesthesia was induced, the patient was then placed in the modified dorsal lithotomy position and genitalia was then prepped and draped in the usual fashion. The patient was slightly contracted. Care was taken not to over extend abduct the legs. Preoperative IV antibiotics had been given on the floor. Time-out was performed. Cystoscopy was then performed. The bladder was inspected. There was some bullous changes from the Tovar. No tumors. The left ureteral orifice was identified with an open-ended catheter. Retrograde pyelogram was done. There appeared to be normal caliber of the left ureter; however at UPJ area there was some stricture jetting into the dilated collecting system. The wire was then passed up. I then did a rigid ureteroscopy. However, the ureter appeared to be tight and it was difficult to visualize well. The ureteroscope was removed. Dilation was done and at this time, a 7-Hebrew x 24 cm double-J stent was then passed up in the collecting system under fluoroscopic and visual guidance. Upon passage of the stent, I could see whitish debris coming through. It should be noted that I did pass an open-ended catheter up to the kidney to get some urine culture prior to the stent placement. Once the stent was in good position, there was good curl in the kidney as well as bladder. It appeared that the collecting system was drained well. Tovar catheter was placed. The patient was awakened and was taken to the recovery room in stable condition. Blood loss is none. No complications. Timothy Leos M.D. DR: Arlene JOB#: [id number] CC: ___ ___ KEHINDE BURNETTE M.D. ; FAX#: [phone]
--- NOTE | 2020-02-18 20:54 | Infectious Diseases Prog Note ---
Assessment/Plan Assessment/Plan A) 1) citrobacter bacteremia, likely source, CT noted, sepsis, leukocytosis worse, vre/enterococcus uti, fungemia risk streptococcus bacteremia - rule out vre - f/u CT noted, c/w hydronephrosis and pyelonephritis - s/p stent placement - c.diff. - negative - leukocytosis slowly better 2) covid testing - negative 3) dm, hyperlipidemia, ? htn, hypothyroidism, cva, anemia, hemiplegia, ckd, gerd , copd, chf, ppm 4) allergies - nkda, fh-nc, sh-negative, mar noted, notes and records noted 5) d/w RN P) 1) meropenem, zyvox, diflucan 2) monitor labs 3) s/p stent 4) d/w Dr. Uribe 5) will f/u Subjective Constitutional: Denies: fever HEENT: Denies: congestion Respiratory: Denies: shortness of breath Cardiovascular: Denies: chest pain Gastrointestinal/Abdominal: Denies: nausea, vomiting Genitourinary: Reports: other - + john Psychiatric: Reports: other - NA Skin: Denies: rash Hematologic: Denies: bleeding Musculoskeletal: Denies: pain Allergies: Coded Allergies: No Known Allergies (Unverified , 01/30/20) Objective Vital Signs Last 24 Hour Vital Signs Date Time Temp Pulse Resp B/P (MAP) Pulse Ox O2 Delivery O2 Flow Rate FiO2 02/18/20 20:00 97.5 95 23 105/66 (79) 99 02/18/20 16:56 97 02/18/20 16:43 97.2 98 22 110/68 (82) 98 02/18/20 16:20 97.3 95 5 106/62 100 Nasal Cannula 3 02/18/20 16:15 96 14 102/59 100 Simple Mask 6 02/18/20 16:05 96 15 104/60 100 Simple Mask 6 02/18/20 16:00 97 14 98/56 100 Simple Mask 6 02/18/20 15:55 98 13 96/53 100 Simple Mask 6 02/18/20 15:50 100 14 97/55 100 Simple Mask 6 02/18/20 15:48 102 18 96 02/18/20 15:45 97.5 114 16 94/48 100 Simple Mask 6 02/18/20 12:00 98.1 95 18 126/87 (100) 95 02/18/20 12:00 96 02/18/20 09:46 101 146/79 02/18/20 09:46 101 146/79 02/18/20 09:00 Room Air 02/18/20 08:00 98 02/18/20 08:00 98.6 101 18 146/79 (101) 98 02/18/20 04:00 98.6 105 20 139/74 (95) 95 02/18/20 03:39 101 02/18/20 00:00 98.4 104 20 141/91 (108) 96 02/17/20 23:32 100 02/17/20 21:39 107 128/72 02/17/20 21:00 Room Air Height (Feet): 5 Height (Inches): 1.00 Weight (Pounds): 142 General Appearance: no acute distress HEENT: normocephalic, atraumatic, anicteric, mucous membranes moist Respiratory/Chest: normal breath sounds, no respiratory distress, no accessory muscle use, rhonchi - bilaterally Cardiovascular: normal rate, regular rhythm, no gallop/murmur Abdomen: normal bowel sounds, soft, non tender, no organomegaly, non distended Genitourinary: other - + john - urine slt cloudy Extremities: no cyanosis Skin: no rash 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 The heart size is normal. There is a right chest biventricular pacemaker Impression: No acute process CT abdomen and pelvis: IMPRESSION: 1. Examination is limited by motion artifact. 2. Trace left pleural effusion. 3. Severe left hydronephrosis versus parapelvic cysts. No definite obstructing stone. 4. Mild bladder wall thickening with small gas foci in the bladder, concerning for cystitis. Please correlate with urinalysis. CT ABDOMEN + PELVIS With Contrast: Prior 02/09/2020 Impression -Small bilateral pleural effusions with passive atelectasis and lung base motion artifact. -Pacer device leads in the heart. -John catheter in the decompressed urinary bladder. - No urolithiasis seen. -Consider left renal collecting system infection/UTI/pyelonephritis in the proper context given moderate left perinephric stranding which is asymmetric compared with the right. -Similar to prior study left inferior renal moiety moderate hydronephrosis without visualized cause. 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 -If there is further desire to evaluate collecting system dilation, consider repeating the study with CT hematuria protocol. -Sacral decubitus ulcer, correlate with presentation. - Rapid transit of contrast through the GI tract could be incidental or could be seen with an infectious or inflammatory enteritis. -Indeterminate left adrenal 2.1 cm enhancing nodule, if felt to alter clinical management consider additional evaluation adrenal gland. CONSIDER correlation with prior imaging studies. -Right renal cortical scarring due to old infectious or ischemic insults. -Atherosclerotic vascular disease. - Hysterectomy. -Unchanged osteopenia and degenerative spine findings. Unchanged old right possible lesser trochanter fracture versus extensive right hip capsular calcifications. Procedure: XRAY Chest 1v - 02/15/20- Indication: Dyspnea Comparison: 02/11/2020 A single view chest radiograph was obtained. Findings: No definite infiltrate or pulmonary vascular congestion identified. The heart is enlarged. The aorta is mildly enlarged consistent with atherosclerotic vascular disease. The bones are osteopenic. There are thoracic vertebral enthesophytes at multiple levels. Pacemaker noted on the right. Impression: No acute disease Microbiology Date/Time Source Procedure Growth Status 02/14/20 21:00 Blood Blood Culture - Preliminary Strep Species, Gamma-Hemolytic Resulted 01/30/20 15:45 Nasal Nares MRSA Culture - Final NO METHICILLIN RESISTANT STAPH AUREUS... Complete 02/15/20 06:00 Stool Clostridium difficile Toxin Assay - Final Complete 02/11/20 14:30 Urine,Clean Catch Urine Culture - Final Enterococcus Faecium - Vre Complete 01/30/20 15:45 Rectum VRE Culture - Final NO VANCOMYCIN RESISTANT ENTEROCOCCUS ... Complete Laboratory Tests Test 02/18/20 10:40 White Blood Count 20.0 K/UL (4.8-10.8) H Red Blood Count 3.36 M/UL (4.20-5.40) L Hemoglobin 9.5 G/DL (12.0-16.0) L Hematocrit 27.7 % (37.0-47.0) L Mean Corpuscular Volume 82 FL (80-99) Mean Corpuscular Hemoglobin 28.2 PG (27.0-31.0) Mean Corpuscular Hemoglobin Concent 34.2 G/DL (32.0-36.0) Red Cell Distribution Width 13.7 % (11.6-14.8) Platelet Count 399 K/UL (150-450) Mean Platelet Volume 5.9 FL (6.5-10.1) L Neutrophils (%) (Auto) % (45.0-75.0) Lymphocytes (%) (Auto) % (20.0-45.0) Monocytes (%) (Auto) % (1.0-10.0) Eosinophils (%) (Auto) % (0.0-3.0) Basophils (%) (Auto) % (0.0-2.0) Differential Total Cells Counted 100 Neutrophils % (Manual) 97 % (45-75) H Lymphocytes % (Manual) 2 % (20-45) L Monocytes % (Manual) 1 % (1-10) Eosinophils % (Manual) 0 % (0-3) Basophils % (Manual) 0 % (0-2) Band Neutrophils 0 % (0-8) Platelet Estimate Adequate Platelet Morphology Normal Hypochromasia 2+ Anisocytosis 1+ Sodium Level 135 MMOL/L (136-145) L Potassium Level 4.0 MMOL/L (3.5-5.1) Chloride Level 102 MMOL/L (98-107) Carbon Dioxide Level 22 MMOL/L (21-32) Anion Gap 11 mmol/L (5-15) Blood Urea Nitrogen 17 mg/dL (7-18) Creatinine 0.8 MG/DL (0.55-1.30) Estimat Glomerular Filtration Rate > 60 mL/min (>60) Glucose Level 186 MG/DL (74-106) H Calcium Level 8.2 MG/DL (8.5-10.1) L Current Medications Medications (Trade) Dose Ordered Sig/Moreno Route PRN Reason Start Time Stop Time Status Last Admin Dose Admin Acetaminophen (Tylenol) 650 mg Q4H PRN GT Mild Pain/Temp > 100.5 02/09/20 14:30 03/08/20 10:29 02/10/20 22:07 Acetaminophen/ Hydrocodone Bitart ([place] 5/325) 1 tab Q1H PRN ORAL Mild Pain (Pain Scale 1-3) 02/18/20 13:00 4/6/20 21:00 Acetaminophen/ Hydrocodone Bitart ([place] 7.5/325) 1 tab Q1H PRN ORAL Moderate Pain (Pain Scale 4-6) 02/18/20 13:00 02/18/20 21:00 Al Hydroxide/Mg Hydroxide (Mylanta) 15 ml Q1H PRN ORAL gi upset 02/18/20 13:00 02/18/20 21:00 Amlodipine Besylate (Norvasc) 10 mg DAILY ORAL 02/16/20 09:00 03/17/20 08:59 02/18/20 09:46 Aspirin (ASA) 81 mg DAILY GT 02/11/20 09:00 03/27/20 08:59 02/18/20 09:46 Atorvastatin Calcium (Lipitor) 40 mg BEDTIME ORAL 02/09/20 21:00 04/29/20 20:59 02/17/20 21:39 Dextrose (Dextrose 50%) 25 ml Q30M PRN IV Hypoglycemia 02/09/20 14:30 04/29/20 18:59 Dextrose (Dextrose 50%) 50 ml Q30M PRN IV Hypoglycemia 02/09/20 14:30 04/29/20 18:59 Diphenhydramine HCl (Benadryl) 25 mg Q15M PRN IVP Itching 02/18/20 13:00 02/18/20 21:00 Diphenhydramine HCl (Benadryl) 25 mg Q6H PRN ORAL Itching/Pruritis 02/09/20 15:00 03/10/20 14:59 Diphenoxylate HCl/ Atropine (Lomotil) 2.5 mg Q4H PRN GT Diarrhea 02/09/20 15:00 03/08/20 14:59 Fentanyl Citrate (Sublimaze 100 mcg/2 mL) 25 mcg Q10M PRN IV Moderate Pain (Pain Scale 4-6) 02/18/20 13:00 02/18/20 21:00 Fluconazole/ Sodium Chloride 100 ml @ 100 mls/hr Q24H IV 02/14/20 22:00 02/21/20 21:59 02/17/20 21:58 Hydralazine HCl (Apresoline) 5 mg Q30M PRN IV SBP>160 / DBP>90 02/18/20 13:00 02/18/20 21:00 Hydromorphone HCl (Dilaudid) 0.5 mg Q15M PRN IVP Severe Pain (Pain Scale 7-10) 02/18/20 13:00 02/18/20 21:00 Iron Sucrose 100 mg/Sodium Chloride 60 ml @ 240 mls/hr BEDTIME IV 02/14/20 21:00 02/18/20 21:14 02/17/20 21:40 Ketorolac Tromethamine (Toradol 30mg) 15 mg Q1H PRN IV Moderate Breakthru Pain (5-7) 02/18/20 13:00 02/18/20 21:00 Ketorolac Tromethamine (Toradol 30mg) 30 mg Q1H PRN IV Severe Breakthru Pain (>7) 02/18/20 13:00 02/18/20 21:00 Labetalol HCl (Normodyne) 5 mg Q10M PRN IV SBP>160 / DBP>90 02/18/20 13:00 02/18/20 21:00 Levothyroxine Sodium (Synthroid) 25 mcg DAILY@0630 ORAL 02/10/20 06:30 03/01/20 06:29 02/18/20 06:32 Linezolid 300 ml @ 300 mls/hr EVERY 12 HOURS IVPB 02/14/20 19:30 02/21/20 19:29 02/18/20 09:47 Loperamide HCl (Imodium) 2 mg Q3H PRN NG Diarrhea 02/10/20 12:45 03/11/20 12:44 02/18/20 06:32 Lorazepam (Ativan 2mg/ml 1ml) 1 mg Q15M PRN IV For Anxiety 02/18/20 13:00 02/18/20 21:00 Meropenem 1 gm/ Sodium Chloride 55 ml @ 110 mls/hr Q12H IVPB 02/15/20 14:00 02/20/20 13:59 02/18/20 13:21 Metoclopramide HCl (Reglan) 10 mg Q1H PRN IVP Nausea & Vomiting 02/18/20 13:00 02/18/20 21:00 Metoprolol Tartrate (Lopressor) 50 mg Q12HR GT 02/17/20 21:00 05/13/20 08:59 02/18/20 09:46 Midazolam HCl (Versed 2mg/2ml vial) 1 mg Q15M PRN IVP For Anxiety 02/18/20 13:00 02/18/20 21:00 Ondansetron HCl (Zofran) 4 mg Q1H PRN IVP Nausea & Vomiting 02/18/20 13:00 02/18/20 21:00 Ondansetron HCl (Zofran) 4 mg Q6H PRN IVP Nausea & Vomiting 02/09/20 15:00 02/29/20 14:59 Oxycodone/ Acetaminophen (Percocet 5-325) 1 tab Q1H PRN ORAL Severe Pain (Pain Scale 7-10) 02/18/20 13:00 02/18/20 21:00 Abiodun Jacobo MD Feb 18, 2020 20:54
[2020-02-18] MEDS: Iron Sucrose 100 MG in NS 55 ML IV SCH (21:17)
[2020-02-18] MEDS: Atorvastatin 20mg tab ORAL SCH (21:21)
[2020-02-19] MEDS: Meropenem 1 GM in NS 55 ML IVPB SCH ×2 (02:00→14:06)
[2020-02-19 04:00] VITALS: BP 109/69
[2020-02-19] MEDS: Levothyroxine 25mcg tab ORAL SCH (06:33)
[2020-02-19 07:23] LABS: BASOPHILS % (AUTO) 1.2 % (0.0-2.0); EOSINOPHILS % (AUTO) 2.6 % (0.0-3.0); HEMATOCRIT 26.1 % (37.0-47.0); HEMOGLOBIN 8.9 G/DL (12.0-16.0); LYMPHOCYTES % (AUTO) 5.1 % (20.0-45.0); MEAN CORPUSCULAR VOLUME 83 FL (80-99); MONOCYTES % (AUTO) 6.4 % (1.0-10.0); NEUTROPHILS % (AUTO) 84.7 % (45.0-75.0); PLATELET COUNT 346 K/UL (150-450); RED BLOOD COUNT 3.16 M/UL (4.20-5.40); RED CELL DISTRIBUTION WIDTH 14.1 % (11.6-14.8); WHITE BLOOD COUNT 14.8 K/UL (4.8-10.8)
[2020-02-19 07:39] LABS: ANION GAP 9 mmol/L (5-15); BLOOD UREA NITROGEN 18 mg/dL (7-18); CALCIUM 8.1 MG/DL (8.5-10.1); CARBON DIOXIDE 25 MMOL/L (21-32); CHLORIDE 104 MMOL/L (98-107); CREATININE 0.9 MG/DL (0.55-1.30); POTASSIUM 4.1 MMOL/L (3.5-5.1); SODIUM 138 MMOL/L (136-145)
[2020-02-19 08:00] VITALS: BP 133/67
--- NOTE | 2020-02-19 08:55 | Urology Progress Note ---
Assessment/Plan Status: stable Assessment/Plan: 1. Left-sided hydronephrosis. 2. Urinary retention. 3. Neurogenic bladder. 4. Proteinuria. 5. Hematuria. 6. Pyuria. 7. Sepsis history. 8. Cystitis. 9. likely renal cyst. 10. POD # 1, left ureteral stent monitor clinically john indwelling hand irrigated and do PRN monitor renal fxn and WBC on abx, per ID voiding trial later hydro likely chronic, no stones, likely UPJ obst no other obvious source for leukocytosis stent placed f/u on last urine cx Subjective Allergies: Coded Allergies: No Known Allergies (Unverified , 01/30/20) Subjective all noted, appears a bit more alert Objective Last 24 Hour Vital Signs Date Time Temp Pulse Resp B/P (MAP) Pulse Ox O2 Delivery O2 Flow Rate FiO2 02/19/20 04:00 98.1 103 18 109/69 (82) 99 02/19/20 04:00 100 02/19/20 00:00 97 02/18/20 23:32 97.6 100 20 136/66 (89) 97 02/18/20 21:00 82 105/66 02/18/20 21:00 Room Air 02/18/20 20:00 97.5 95 23 105/66 (79) 99 02/18/20 20:00 93 02/18/20 16:56 97 02/18/20 16:43 97.2 98 22 110/68 (82) 98 02/18/20 16:20 97.3 95 5 106/62 100 Nasal Cannula 3 02/18/20 16:15 96 14 102/59 100 Simple Mask 6 02/18/20 16:05 96 15 104/60 100 Simple Mask 6 02/18/20 16:00 97 14 98/56 100 Simple Mask 6 02/18/20 15:55 98 13 96/53 100 Simple Mask 6 02/18/20 15:50 100 14 97/55 100 Simple Mask 6 02/18/20 15:48 102 18 96 02/18/20 15:45 97.5 114 16 94/48 100 Simple Mask 6 02/18/20 12:00 98.1 95 18 126/87 (100) 95 02/18/20 12:00 96 02/18/20 09:46 101 146/79 02/18/20 09:46 101 146/79 02/18/20 09:00 Room Air Intake and Output 02/18/20 02/19/20 19:00 07:00 Intake Total 400 ml Output Total 10 ml 700 ml Balance 390 ml -700 ml IV Total 300 ml Hemodialysis 100 ml Output Urine Total 700 ml Estimated Blood Loss 10 ml # Voids 1 # Bowel Movements 2 Microbiology Date/Time Source Procedure Growth Status 02/14/20 21:00 Blood Blood Culture - Final Enterococcus Faecium - Vre Complete 01/30/20 15:45 Nasal Nares MRSA Culture - Final NO METHICILLIN RESISTANT STAPH AUREUS... Complete 02/15/20 06:00 Stool Clostridium difficile Toxin Assay - Final Complete 02/18/20 14:51 Urine,Ureter/Kidney Urine Culture - Preliminary NO GROWTH Resulted 01/30/20 15:45 Rectum VRE Culture - Final NO VANCOMYCIN RESISTANT ENTEROCOCCUS ... Complete Current Medications Medications (Trade) Dose Ordered Sig/Moreno Route PRN Reason Start Time Stop Time Status Last Admin Dose Admin Acetaminophen (Tylenol) 650 mg Q4H PRN GT Mild Pain/Temp > 100.5 02/09/20 14:30 03/08/20 10:29 02/10/20 22:07 Amlodipine Besylate (Norvasc) 10 mg DAILY ORAL 02/16/20 09:00 03/17/20 08:59 02/18/20 09:46 Aspirin (ASA) 81 mg DAILY GT 02/11/20 09:00 03/27/20 08:59 02/18/20 09:46 Atorvastatin Calcium (Lipitor) 40 mg BEDTIME ORAL 02/09/20 21:00 04/29/20 20:59 02/18/20 21:21 Dextrose (Dextrose 50%) 25 ml Q30M PRN IV Hypoglycemia 02/09/20 14:30 04/29/20 18:59 Dextrose (Dextrose 50%) 50 ml Q30M PRN IV Hypoglycemia 02/09/20 14:30 04/29/20 18:59 Diphenhydramine HCl (Benadryl) 25 mg Q6H PRN ORAL Itching/Pruritis 02/09/20 15:00 03/10/20 14:59 Diphenoxylate HCl/ Atropine (Lomotil) 2.5 mg Q4H PRN GT Diarrhea 02/09/20 15:00 03/08/20 14:59 Fluconazole/ Sodium Chloride 100 ml @ 100 mls/hr Q24H IV 02/14/20 22:00 02/21/20 21:59 02/18/20 21:20 Levothyroxine Sodium (Synthroid) 25 mcg DAILY@0630 ORAL 02/10/20 06:30 03/01/20 06:29 02/19/20 06:33 Linezolid 300 ml @ 300 mls/hr EVERY 12 HOURS IVPB 02/14/20 19:30 02/21/20 19:29 02/18/20 21:18 Loperamide HCl (Imodium) 2 mg Q3H PRN NG Diarrhea 02/10/20 12:45 03/11/20 12:44 02/18/20 06:32 Meropenem 1 gm/ Sodium Chloride 55 ml @ 110 mls/hr Q12H IVPB 02/19/20 02:00 02/24/20 01:59 02/19/20 02:00 Metoprolol Tartrate (Lopressor) 50 mg Q12HR GT 02/17/20 21:00 05/13/20 08:59 02/18/20 09:46 Ondansetron HCl (Zofran) 4 mg Q6H PRN IVP Nausea & Vomiting 02/09/20 15:00 02/29/20 14:59 Laboratory Tests 02/18/20 10:40: White Blood Count 20.0H, Red Blood Count 3.36L, Hemoglobin 9.5L, Hematocrit 27.7L, Mean Corpuscular Volume 82, Mean Corpuscular Hemoglobin 28.2, Mean Corpuscular Hemoglobin Concent 34.2, Red Cell Distribution Width 13.7, Platelet Count 399, Mean Platelet Volume 5.9L, Neutrophils (%) (Auto) , Lymphocytes (%) ( Auto) , Monocytes (%) (Auto) , Eosinophils (%) (Auto) , Basophils (%) (Auto) , Differential Total Cells Counted 100, Neutrophils % (Manual) 97H, Lymphocytes % (Manual) 2L, Monocytes % (Manual) 1, Eosinophils % (Manual) 0, Basophils % ( Manual) 0, Band Neutrophils 0, Platelet Estimate Adequate, Platelet Morphology Normal, Hypochromasia 2+, Anisocytosis 1+, Sodium Level 135L, Potassium Level 4.0, Chloride Level 102, Carbon Dioxide Level 22, Anion Gap 11, Blood Urea Nitrogen 17, Creatinine 0.8, Estimat Glomerular Filtration Rate > 60, Glucose Level 186H, Calcium Level 8.2L 02/19/20 05:54: White Blood Count 14.8H, Red Blood Count 3.16L, Hemoglobin 8.9L, Hematocrit 26.1L, Mean Corpuscular Volume 83, Mean Corpuscular Hemoglobin 28.2, Mean Corpuscular Hemoglobin Concent 34.0, Red Cell Distribution Width 14.1, Platelet Count 346, Mean Platelet Volume 6.0L, Neutrophils (%) (Auto) 84.7H, Lymphocytes (%) (Auto) 5.1L, Monocytes (%) (Auto) 6.4, Eosinophils (%) (Auto) 2.6, Basophils (%) (Auto) 1.2, Sodium Level 138, Potassium Level 4.1, Chloride Level 104, Carbon Dioxide Level 25, Anion Gap 9, Blood Urea Nitrogen 18, Creatinine 0.9, Estimat Glomerular Filtration Rate > 60, Glucose Level 113H, Calcium Level 8.1L Height (Feet): 5 Height (Inches): 1.00 Weight (Pounds): 142 Objective exam stable john indwelling, evangelina urine with some debris renal u/s (02/11) noted CT A/P with IV contrast (02/14) noted Timothy Leos MD Feb 19, 2020 08:55
--- NOTE | 2020-02-19 09:24 | Cardiac Electrophysiology PN ---
Assessment/Plan Assessment/Plan 1. Status post right-sided [facility] DDD pacer implantation. Interrogation showed No PMT and just sinus tach due to acute HI with peak troponin 31. Continue Lopressor 50 bid. 2. Acute NSTEMI with peak troponin 31. Down to 2. Non verbal. Continue aspirin, Lopressor and Lipitor. Echo on 02/11/20 EF 40-45% 3. Diabetes. 4. Hypertension, on Toprol 50 bid and Norvasc 10 daily 5. Status post septic shock with WBC 27 K. On iv Abx per Dr. Naylor Now WBC 14.8 K 6. Severe anemia. Hemoglobin improved from 7.5 to 9.4. 7. Dementia. 8. CVA. 10. COPD. 11. ARF and hydronephrosis, Cr now normal. S/P ureteral stent placement on 02/18/20 12. S/P PEG placement. LAKIA RN Subjective Subjective Nonverbal but responsive in NAD. In sinus with V tracking at around 90s S/P ureteral stent placement by Dr Leos 02/18/20. Objective Last 24 Hour Vital Signs Date Time Temp Pulse Resp B/P (MAP) Pulse Ox O2 Delivery O2 Flow Rate FiO2 02/19/20 04:00 98.1 103 18 109/69 (82) 99 02/19/20 04:00 100 02/19/20 00:00 97 02/18/20 23:32 97.6 100 20 136/66 (89) 97 02/18/20 21:00 82 105/66 02/18/20 21:00 Room Air 02/18/20 20:00 97.5 95 23 105/66 (79) 99 02/18/20 20:00 93 02/18/20 16:56 97 02/18/20 16:43 97.2 98 22 110/68 (82) 98 02/18/20 16:20 97.3 95 5 106/62 100 Nasal Cannula 3 02/18/20 16:15 96 14 102/59 100 Simple Mask 6 02/18/20 16:05 96 15 104/60 100 Simple Mask 6 02/18/20 16:00 97 14 98/56 100 Simple Mask 6 02/18/20 15:55 98 13 96/53 100 Simple Mask 6 02/18/20 15:50 100 14 97/55 100 Simple Mask 6 02/18/20 15:48 102 18 96 02/18/20 15:45 97.5 114 16 94/48 100 Simple Mask 6 02/18/20 12:00 98.1 95 18 126/87 (100) 95 02/18/20 12:00 96 02/18/20 09:46 101 146/79 02/18/20 09:46 101 146/79 Intake and Output 02/18/20 02/19/20 19:00 07:00 Intake Total 400 ml Output Total 10 ml 700 ml Balance 390 ml -700 ml IV Total 300 ml Hemodialysis 100 ml Output Urine Total 700 ml Estimated Blood Loss 10 ml # Voids 1 # Bowel Movements 2 Laboratory Tests Test 02/18/20 10:40 02/19/20 05:54 White Blood Count 20.0 K/UL (4.8-10.8) H 14.8 K/UL (4.8-10.8) H Red Blood Count 3.36 M/UL (4.20-5.40) L 3.16 M/UL (4.20-5.40) L Hemoglobin 9.5 G/DL (12.0-16.0) L 8.9 G/DL (12.0-16.0) L Hematocrit 27.7 % (37.0-47.0) L 26.1 % (37.0-47.0) L Mean Corpuscular Volume 82 FL (80-99) 83 FL (80-99) Mean Corpuscular Hemoglobin 28.2 PG (27.0-31.0) 28.2 PG (27.0-31.0) Mean Corpuscular Hemoglobin Concent 34.2 G/DL (32.0-36.0) 34.0 G/DL (32.0-36.0) Red Cell Distribution Width 13.7 % (11.6-14.8) 14.1 % (11.6-14.8) Platelet Count 399 K/UL (150-450) 346 K/UL (150-450) Mean Platelet Volume 5.9 FL (6.5-10.1) L 6.0 FL (6.5-10.1) L Neutrophils (%) (Auto) % (45.0-75.0) 84.7 % (45.0-75.0) H Lymphocytes (%) (Auto) % (20.0-45.0) 5.1 % (20.0-45.0) L Monocytes (%) (Auto) % (1.0-10.0) 6.4 % (1.0-10.0) Eosinophils (%) (Auto) % (0.0-3.0) 2.6 % (0.0-3.0) Basophils (%) (Auto) % (0.0-2.0) 1.2 % (0.0-2.0) Differential Total Cells Counted 100 Neutrophils % (Manual) 97 % (45-75) H Lymphocytes % (Manual) 2 % (20-45) L Monocytes % (Manual) 1 % (1-10) Eosinophils % (Manual) 0 % (0-3) Basophils % (Manual) 0 % (0-2) Band Neutrophils 0 % (0-8) Platelet Estimate Adequate Platelet Morphology Normal Hypochromasia 2+ Anisocytosis 1+ Sodium Level 135 MMOL/L (136-145) L 138 MMOL/L (136-145) Potassium Level 4.0 MMOL/L (3.5-5.1) 4.1 MMOL/L (3.5-5.1) Chloride Level 102 MMOL/L (98-107) 104 MMOL/L (98-107) Carbon Dioxide Level 22 MMOL/L (21-32) 25 MMOL/L (21-32) Anion Gap 11 mmol/L (5-15) 9 mmol/L (5-15) Blood Urea Nitrogen 17 mg/dL (7-18) 18 mg/dL (7-18) Creatinine 0.8 MG/DL (0.55-1.30) 0.9 MG/DL (0.55-1.30) Estimat Glomerular Filtration Rate > 60 mL/min (>60) > 60 mL/min (>60) Glucose Level 186 MG/DL (74-106) H 113 MG/DL (74-106) H Calcium Level 8.2 MG/DL (8.5-10.1) L 8.1 MG/DL (8.5-10.1) L Microbiology Date/Time Source Procedure Growth Status 02/18/20 14:51 Urine,Ureter/Kidney Urine Culture - Preliminary NO GROWTH Resulted Objective HEAD AND NECK: Shows no JVD. LUNGS: Coarse rhonchi. CARDIOVASCULAR: Regular S1 and S2. Pacemaker is in the right subclavian. ABDOMEN: Soft.PEG in place. Has john EXTREMITIES: Contracted. Oscar Corley MD Feb 19, 2020 09:24
--- NOTE | 2020-02-19 09:29 | General Progress Note ---
Assessment/Plan Problem List: (1) Diarrhea ICD Codes: R19.7 - Diarrhea, unspecified SNOMED: 85825984 (2) GI (gastrointestinal bleed) ICD Codes: K92.2 - Gastrointestinal hemorrhage, unspecified SNOMED: 22946018 (3) Elevated troponin ICD Codes: R79.89 - Other specified abnormal findings of blood chemistry; R65.21 - Severe sepsis with septic shock SNOMED: 663145848, 507613044, 950262837 (4) Anemia ICD Codes: D64.9 - Anemia, unspecified SNOMED: 605794226 (5) Septic shock ICD Codes: A41.9 - Sepsis, unspecified organism; R65.21 - Severe sepsis with septic shock SNOMED: 22350368 Status: stable Assessment/Plan: diarrhea is better with Lomotil and Imodium neg stool C.diff ppi>>> will dc TF , Glucerna 1.2 s/p blood transfusion last week COVID >>> neg given active CA and stable H&H will hold GI procedures for now repeat stool ob>>> neg repeat CBC fu ID regarding ABX treatment of Pylo fu repeat CT>>> reviewed>>>fu ID recs fu urology recs for hematuria Subjective ROS Limited/Unobtainable: No Allergies: Coded Allergies: No Known Allergies (Unverified , 01/30/20) Objective Last 24 Hour Vital Signs Date Time Temp Pulse Resp B/P (MAP) Pulse Ox O2 Delivery O2 Flow Rate FiO2 02/19/20 04:00 98.1 103 18 109/69 (82) 99 02/19/20 04:00 100 02/19/20 00:00 97 02/18/20 23:32 97.6 100 20 136/66 (89) 97 02/18/20 21:00 82 105/66 02/18/20 21:00 Room Air 02/18/20 20:00 97.5 95 23 105/66 (79) 99 02/18/20 20:00 93 02/18/20 16:56 97 02/18/20 16:43 97.2 98 22 110/68 (82) 98 02/18/20 16:20 97.3 95 5 106/62 100 Nasal Cannula 3 02/18/20 16:15 96 14 102/59 100 Simple Mask 6 02/18/20 16:05 96 15 104/60 100 Simple Mask 6 02/18/20 16:00 97 14 98/56 100 Simple Mask 6 02/18/20 15:55 98 13 96/53 100 Simple Mask 6 02/18/20 15:50 100 14 97/55 100 Simple Mask 6 02/18/20 15:48 102 18 96 02/18/20 15:45 97.5 114 16 94/48 100 Simple Mask 6 02/18/20 12:00 98.1 95 18 126/87 (100) 95 02/18/20 12:00 96 02/18/20 09:46 101 146/79 02/18/20 09:46 101 146/79 Intake and Output 02/18/20 02/19/20 19:00 07:00 Intake Total 400 ml Output Total 10 ml 700 ml Balance 390 ml -700 ml IV Total 300 ml Hemodialysis 100 ml Output Urine Total 700 ml Estimated Blood Loss 10 ml # Voids 1 # Bowel Movements 2 Laboratory Tests 02/18/20 10:40: White Blood Count 20.0H, Red Blood Count 3.36L, Hemoglobin 9.5L, Hematocrit 27.7L, Mean Corpuscular Volume 82, Mean Corpuscular Hemoglobin 28.2, Mean Corpuscular Hemoglobin Concent 34.2, Red Cell Distribution Width 13.7, Platelet Count 399, Mean Platelet Volume 5.9L, Neutrophils (%) (Auto) , Lymphocytes (%) ( Auto) , Monocytes (%) (Auto) , Eosinophils (%) (Auto) , Basophils (%) (Auto) , Differential Total Cells Counted 100, Neutrophils % (Manual) 97H, Lymphocytes % (Manual) 2L, Monocytes % (Manual) 1, Eosinophils % (Manual) 0, Basophils % ( Manual) 0, Band Neutrophils 0, Platelet Estimate Adequate, Platelet Morphology Normal, Hypochromasia 2+, Anisocytosis 1+, Sodium Level 135L, Potassium Level 4.0, Chloride Level 102, Carbon Dioxide Level 22, Anion Gap 11, Blood Urea Nitrogen 17, Creatinine 0.8, Estimat Glomerular Filtration Rate > 60, Glucose Level 186H, Calcium Level 8.2L 02/19/20 05:54: White Blood Count 14.8H, Red Blood Count 3.16L, Hemoglobin 8.9L, Hematocrit 26.1L, Mean Corpuscular Volume 83, Mean Corpuscular Hemoglobin 28.2, Mean Corpuscular Hemoglobin Concent 34.0, Red Cell Distribution Width 14.1, Platelet Count 346, Mean Platelet Volume 6.0L, Neutrophils (%) (Auto) 84.7H, Lymphocytes (%) (Auto) 5.1L, Monocytes (%) (Auto) 6.4, Eosinophils (%) (Auto) 2.6, Basophils (%) (Auto) 1.2, Sodium Level 138, Potassium Level 4.1, Chloride Level 104, Carbon Dioxide Level 25, Anion Gap 9, Blood Urea Nitrogen 18, Creatinine 0.9, Estimat Glomerular Filtration Rate > 60, Glucose Level 113H, Calcium Level 8.1L Height (Feet): 5 Height (Inches): 1.00 Weight (Pounds): 142 General Appearance: no apparent distress EENT: normal ENT inspection Neck: supple Cardiovascular: normal rate Respiratory/Chest: decreased breath sounds Abdomen: normal bowel sounds, non tender, soft Extremities: non-tender Herminio Rodriguez MD Feb 19, 2020 09:29
[2020-02-19] MEDS: Metoprolol Tartrate 50mg tab GT SCH ×2 (09:38→20:32)
[2020-02-19] MEDS: Aspirin Baby 81mg GT SCH (09:38)
--- NOTE | 2020-02-19 11:40 | General Progress Note ---
Assessment/Plan Status: stable Assessment/Plan: 84 year old woman with history of CVA, hemiplegia, DM, COPD, CKD, hyperlipidemia , hypothyroidism, GERD, unspecified CHF, S/p PPM brought in from SNF with hypotension, found to be septic with leukocytosis and minimal pyuria 84 year old woman with history of CVA, hemiplegia, DM, COPD, CKD, hyperlipidemia , hypothyroidism, GERD, unspecified CHF, S/p PPM brought in from SNF with hypotension, found to be septic with leukocytosis and minimal pyuria #Sepsis #Citrobacter bacteremia #Enterococcus/VRE UTI #Yeast UTI #Left Hydronephrosis #Leukocytosis - remains elevated #Hypotension - resolved #Elevated lactate - resolved #diarrhea - improved #Fever - resolved -continue inpatient level of care, cardiac monitoring -COVID 19 negative -01/29 BCx +citrobacter, repeat on 02/02 BCx negative -c diff negative on 02/03, 02/14 -Cont.imodium, lomotil per ID -pt w/fever on 02/10: BCx NGTD -02/10: UCx + enterococcus/VRE -02/13 BCx w/GPC in pairs -CT A/p and renal US reviewed -CT abd/pel w/contrast 02/14: Evidence of left renal infection/UTI/Mathew with perinephric stranding, left hydronephrosis, duplicated left renal collecting system, atrophic right kidney -ID following: continue current antibiotics -S/p cysto with left sided ureteral stent placement 02/17 #NSTEMI #HTN #HLD #Elevated BNP #S/p PPM, [facility] DDD #Sinus tachycardia -Echo 02/10: EF 40-45% -PPM interrogated: sinus tach -trop peak 31>> 8 >> 2.23 -monitor closely for evidence of fluid overload -cont. home amlodipine 10 mg -cont. medical management ASA, lipitor -lopressor 50 BID w/hold parameters -EP, Dr. Corley, following -Cardio, Dr. Crain, following: no indication for cath at this time #Hypernatremia - resolved #Hyponatremia #Unspecified CKD #One Kidney -monitor renal function -FWF per nephro -Nephro following, recs appreciated #anemia #Thrombocytosis -downtrending, likely 2/2 to infectious process -cont. to monitor -no signs of bleeding -s/p 1 U PRBC on 02/16/20 -Heme, Dr. 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 Subjective Date patient seen: Feb 19, 2020 Time patient seen: 11:36 ROS Limited/Unobtainable: Yes Allergies: Coded Allergies: No Known Allergies (Unverified , 01/30/20) Subjective Follow up for sepsis, Citrobacter bacteremia, pyelonephritis Underwent cystoscopy with left sided ureteral stent placement on 02/17 Leukocytosis improved. Objective Last 24 Hour Vital Signs Date Time Temp Pulse Resp B/P (MAP) Pulse Ox O2 Delivery O2 Flow Rate FiO2 02/19/20 09:38 109 133/67 02/19/20 09:38 109 133/67 02/19/20 09:00 Room Air 02/19/20 08:00 97.9 109 18 133/67 (89) 99 02/19/20 08:00 110 02/19/20 04:00 98.1 103 18 109/69 (82) 99 02/19/20 04:00 100 02/19/20 00:00 97 02/18/20 23:32 97.6 100 20 136/66 (89) 97 02/18/20 21:00 82 105/66 02/18/20 21:00 Room Air 02/18/20 20:00 97.5 95 23 105/66 (79) 99 02/18/20 20:00 93 02/18/20 16:56 97 02/18/20 16:43 97.2 98 22 110/68 (82) 98 02/18/20 16:20 97.3 95 5 106/62 100 Nasal Cannula 3 02/18/20 16:15 96 14 102/59 100 Simple Mask 6 02/18/20 16:05 96 15 104/60 100 Simple Mask 6 02/18/20 16:00 97 14 98/56 100 Simple Mask 6 02/18/20 15:55 98 13 96/53 100 Simple Mask 6 02/18/20 15:50 100 14 97/55 100 Simple Mask 6 02/18/20 15:48 102 18 96 02/18/20 15:45 97.5 114 16 94/48 100 Simple Mask 6 02/18/20 12:00 98.1 95 18 126/87 (100) 95 02/18/20 12:00 96 Intake and Output 02/18/20 02/19/20 19:00 07:00 Intake Total 400 ml Output Total 10 ml 700 ml Balance 390 ml -700 ml IV Total 300 ml Hemodialysis 100 ml Output Urine Total 700 ml Estimated Blood Loss 10 ml # Voids 1 # Bowel Movements 2 Laboratory Tests 02/19/20 05:54: White Blood Count 14.8H, Red Blood Count 3.16L, Hemoglobin 8.9L, Hematocrit 26.1L, Mean Corpuscular Volume 83, Mean Corpuscular Hemoglobin 28.2, Mean Corpuscular Hemoglobin Concent 34.0, Red Cell Distribution Width 14.1, Platelet Count 346, Mean Platelet Volume 6.0L, Neutrophils (%) (Auto) 84.7H, Lymphocytes (%) (Auto) 5.1L, Monocytes (%) (Auto) 6.4, Eosinophils (%) (Auto) 2.6, Basophils (%) (Auto) 1.2, Sodium Level 138, Potassium Level 4.1, Chloride Level 104, Carbon Dioxide Level 25, Anion Gap 9, Blood Urea Nitrogen 18, Creatinine 0.9, Estimat Glomerular Filtration Rate > 60, Glucose Level 113H, Calcium Level 8.1L Height (Feet): 5 Height (Inches): 1.00 Weight (Pounds): 142 General Appearance: alert, confused Cardiovascular: normal rate, regular rhythm Respiratory/Chest: lungs clear, normal breath sounds Abdomen: non tender, soft Carmine Major MD Feb 19, 2020 11:40
--- NOTE | 2020-02-19 11:42 | Nephrology Progress Note ---
Assessment/Plan Plan #hypernatremia due to free water deficit of close to 3L-improved #sepsis due to Citrobacter bacteremia #h/o CVA with hemiplegia #DM #COPD # hyperlipidemia #hypothyroidism # GERD # unspecified CHF, S/p PPM # possible hydronephrosis on CT -> monitor off IVF -> monitor for ANGELICA _> CT abd/pelvis w con done on 02/14- plan fro stent and nephrostomy - amlodipine 10mg daily - decrease free water flushes to 150 q6hr - monitor bmp daily - continue abx - avoid nephrotoxins - strict I&Os - daily weights - monitor lytes - urology eval -CT abd/pelvis w con done on 02/14- plan fro stent and nephrostomy - monitor Cr closely Subjective Subjective WBC 21 CT abd/pelvis w con done on 02/14- plan fro stent and nephrostomy Renal US: Impression: Moderate to severe left hydronephrosis versus parapelvic cysts mimicking hydronephrosis, versus combination of both. This also described on recent CT scan Atrophic right kidney. Mild right renal collecting system fullness, significance/etiology uncertain Objective Objective Last 24 Hour Vital Signs Date Time Temp Pulse Resp B/P (MAP) Pulse Ox O2 Delivery O2 Flow Rate FiO2 02/19/20 09:38 109 133/67 02/19/20 09:38 109 133/67 02/19/20 09:00 Room Air 02/19/20 08:00 97.9 109 18 133/67 (89) 99 02/19/20 08:00 110 02/19/20 04:00 98.1 103 18 109/69 (82) 99 02/19/20 04:00 100 02/19/20 00:00 97 02/18/20 23:32 97.6 100 20 136/66 (89) 97 02/18/20 21:00 82 105/66 02/18/20 21:00 Room Air 02/18/20 20:00 97.5 95 23 105/66 (79) 99 02/18/20 20:00 93 02/18/20 16:56 97 02/18/20 16:43 97.2 98 22 110/68 (82) 98 02/18/20 16:20 97.3 95 5 106/62 100 Nasal Cannula 3 02/18/20 16:15 96 14 102/59 100 Simple Mask 6 02/18/20 16:05 96 15 104/60 100 Simple Mask 6 02/18/20 16:00 97 14 98/56 100 Simple Mask 6 02/18/20 15:55 98 13 96/53 100 Simple Mask 6 02/18/20 15:50 100 14 97/55 100 Simple Mask 6 02/18/20 15:48 102 18 96 02/18/20 15:45 97.5 114 16 94/48 100 Simple Mask 6 02/18/20 12:00 98.1 95 18 126/87 (100) 95 02/18/20 12:00 96 Intake and Output 02/18/20 02/19/20 19:00 07:00 Intake Total 400 ml Output Total 10 ml 700 ml Balance 390 ml -700 ml IV Total 300 ml Hemodialysis 100 ml Output Urine Total 700 ml Estimated Blood Loss 10 ml # Voids 1 # Bowel Movements 2 Laboratory Tests 02/19/20 05:54: White Blood Count 14.8H, Red Blood Count 3.16L, Hemoglobin 8.9L, Hematocrit 26.1L, Mean Corpuscular Volume 83, Mean Corpuscular Hemoglobin 28.2, Mean Corpuscular Hemoglobin Concent 34.0, Red Cell Distribution Width 14.1, Platelet Count 346, Mean Platelet Volume 6.0L, Neutrophils (%) (Auto) 84.7H, Lymphocytes (%) (Auto) 5.1L, Monocytes (%) (Auto) 6.4, Eosinophils (%) (Auto) 2.6, Basophils (%) (Auto) 1.2, Sodium Level 138, Potassium Level 4.1, Chloride Level 104, Carbon Dioxide Level 25, Anion Gap 9, Blood Urea Nitrogen 18, Creatinine 0.9, Estimat Glomerular Filtration Rate > 60, Glucose Level 113H, Calcium Level 8.1L Height (Feet): 5 Height (Inches): 1.00 Weight (Pounds): 142 Objective General Appearance: NAD, otherwise awake, alert, confused Neck: normal alignment, supple CV: RRR Respiratory: lungs clear, normal breath sounds, no respiratory distress Abdomen: non tender, soft, +PEG tube, c/d/i Ext: Contracted bilaterally, multiple abrasions wrapped in bandages C/D/I Cathy Fuller M.D. Feb 19, 2020 11:42
[2020-02-19 12:00] VITALS: BP 117/71
--- NOTE | 2020-02-19 12:49 | Surgery Progress Note ---
Surgery Progress Note Subjective Additional Comments no acute events eaxm stable comfortable appearing Objective Last 24 Hour Vital Signs Date Time Temp Pulse Resp B/P (MAP) Pulse Ox O2 Delivery O2 Flow Rate FiO2 02/19/20 09:38 109 133/67 02/19/20 09:38 109 133/67 02/19/20 09:00 Room Air 02/19/20 08:00 97.9 109 18 133/67 (89) 99 02/19/20 08:00 110 02/19/20 04:00 98.1 103 18 109/69 (82) 99 02/19/20 04:00 100 02/19/20 00:00 97 02/18/20 23:32 97.6 100 20 136/66 (89) 97 02/18/20 21:00 82 105/66 02/18/20 21:00 Room Air 02/18/20 20:00 97.5 95 23 105/66 (79) 99 02/18/20 20:00 93 02/18/20 16:56 97 02/18/20 16:43 97.2 98 22 110/68 (82) 98 02/18/20 16:20 97.3 95 5 106/62 100 Nasal Cannula 3 02/18/20 16:15 96 14 102/59 100 Simple Mask 6 02/18/20 16:05 96 15 104/60 100 Simple Mask 6 02/18/20 16:00 97 14 98/56 100 Simple Mask 6 02/18/20 15:55 98 13 96/53 100 Simple Mask 6 02/18/20 15:50 100 14 97/55 100 Simple Mask 6 02/18/20 15:48 102 18 96 02/18/20 15:45 97.5 114 16 94/48 100 Simple Mask 6 I&O Intake and Output 02/18/20 02/19/20 19:00 07:00 Intake Total 400 ml Output Total 10 ml 700 ml Balance 390 ml -700 ml IV Total 300 ml Hemodialysis 100 ml Output Urine Total 700 ml Estimated Blood Loss 10 ml # Voids 1 # Bowel Movements 2 Dressing: saturated Cardiovascular: RSR Respiratory: decreased breath sounds Abdomen: soft, non-tender, present bowel sounds Extremities: no cyanosis Laboratory Tests Test 02/19/20 05:54 White Blood Count 14.8 K/UL (4.8-10.8) H Red Blood Count 3.16 M/UL (4.20-5.40) L Hemoglobin 8.9 G/DL (12.0-16.0) L Hematocrit 26.1 % (37.0-47.0) L Mean Corpuscular Volume 83 FL (80-99) Mean Corpuscular Hemoglobin 28.2 PG (27.0-31.0) Mean Corpuscular Hemoglobin Concent 34.0 G/DL (32.0-36.0) Red Cell Distribution Width 14.1 % (11.6-14.8) Platelet Count 346 K/UL (150-450) Mean Platelet Volume 6.0 FL (6.5-10.1) L Neutrophils (%) (Auto) 84.7 % (45.0-75.0) H Lymphocytes (%) (Auto) 5.1 % (20.0-45.0) L Monocytes (%) (Auto) 6.4 % (1.0-10.0) Eosinophils (%) (Auto) 2.6 % (0.0-3.0) Basophils (%) (Auto) 1.2 % (0.0-2.0) Sodium Level 138 MMOL/L (136-145) Potassium Level 4.1 MMOL/L (3.5-5.1) Chloride Level 104 MMOL/L (98-107) Carbon Dioxide Level 25 MMOL/L (21-32) Anion Gap 9 mmol/L (5-15) Blood Urea Nitrogen 18 mg/dL (7-18) Creatinine 0.9 MG/DL (0.55-1.30) Estimat Glomerular Filtration Rate > 60 mL/min (>60) Glucose Level 113 MG/DL (74-106) H Calcium Level 8.1 MG/DL (8.5-10.1) L Plan Problems: (1) Septic shock Assessment & Plan: Patient presented to emergency department with sepsis hypotension tachycardia lactic acidosis leukocytosis. On IV antibiotics Labs improving IV hydration Continue tube feeds advance goal as tolerated Abdominal exam does elicit patient to retract a bit but she is not tender peritonitis or without rebound or significant guarding. exam improved Likely startle effect rather than intra-abdominal pathology will follow with serial exams continue with current care plan thank you for let me participate in patient's care leukocytosis. c diff negative. blood cultures noted abx as per ID Severe left hydronephrosis versus parapelvic cysts. No definite obstructing stone. Mild bladder wall thickening with small gas foci in the bladder, concerning for cystitis. Please correlate with urinalysis. Acute NSTEMI with peak troponin 31 as per cardiology wbc fever micro worsening leukocytosis -Small bilateral pleural effusions with passive atelectasis and lung base motion artifact. -Pacer device leads in the heart. -Tovar catheter in the decompressed urinary bladder. - No urolithiasis seen. -Consider left renal collecting system infection/UTI/pyelonephritis in the proper context given moderate left perinephric stranding which is asymmetric compared with the right. -Similar to prior study left inferior renal moiety moderate hydronephrosis without visualized cause. 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 -If there is further desire to evaluate collecting system dilation, consider repeating the study with CT hematuria protocol. -Sacral decubitus ulcer, correlate with presentation. - Rapid transit of contrast through the GI tract could be incidental or could be seen with an infectious or inflammatory enteritis. -Indeterminate left adrenal 2.1 cm enhancing nodule, if felt to alter clinical management consider additional evaluation adrenal gland. CONSIDER correlation with prior imaging studies. -Right renal cortical scarring due to old infectious or ischemic insults. -Atherosclerotic vascular disease. - Hysterectomy. -Unchanged osteopenia and degenerative spine findings. Unchanged old right possible lesser trochanter fracture versus extensive right hip capsular calcifications. 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 The lower pole collecting system is markedly hydronephrotic. The upper pole collecting system is normal in appearance. There is inflammatory change surrounding the lower pole of the left kidney, with some fluid tracking caudad along Gerota's fascia. There is either a cyst or dilated calyx in the left lower pole, suspect the latter as this appears to communicate with the collecting system along the anterior border of the kidney, best visualized on the sagittal reconstructed images. No obstructing stone or mass is demonstrated. There is no hydroureter. The upper pole collecting system is nondilated. There is probably only a single left ureter, but this cannot be stated for certain. The right kidney demonstrates subcentimeter low-attenuation lesions which are too small to characterize, most likely benign simple cysts. There is a Tovar catheter within the bladder, which contains some gas presumably related to the Tovar catheterization. There are retrococcygeal decubitus changes and suspicion for some ulceration. This is more evident than on the prior exam. No definite osseous destruction. The liver, gallbladder, bile ducts, pancreas, spleen, adrenals are unremarkable. No retroperitoneal or mesenteric mass or adenopathy. No pelvic mass or adenopathy. The uterus is absent. Ingested contrast has reached the distal colon, and there is some evidence of rectal fecal incontinence. No evidence of colonic diverticulosis or diverticulitis. The appendix is normal. No small bowel distention. No small bowel wall thickening. There is a small amount of free pelvic fluid. Distal esophagus is unremarkable. The stomach contains a gastrostomy which appears to be well positioned. Fairly extensive chronic degenerative changes are seen about both hips. There is some infiltration of the subcutaneous fat in the bilateral neck regions which is nonspecific. There are degenerative changes of the lumbar spine Included lung bases demonstrate small bilateral pleural effusions. Hazy parenchymal disease is seen in the bilateral lower lobes. 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 Inflammatory change is seen surrounding the lower pole left kidney. This is new since the prior exam, could inflammation secondary to acute obstruction versus infection, suspect the latter. Etiology of obstruction not demonstrated, could a congenital ureteropelvic junction obstruction Retrococcygeal decubitus changes and possibly ulceration. Correlate with clinical findings Bilateral pleural effusions. This is new since the previous study. 1.6 cm left adrenal mass, much more clearly demonstrated on the previous exam. Consider follow-up with adrenal protocol CT if this would affect management Gastrostomy, Tovar catheter, pacemaker incidentally noted Evidence of prior hysterectomy Incidental findings of degenerative disc disease, bilateral hip degenerative changes (2) Decubitus skin ulcer Assessment & Plan: 84-year-old female presented on admission with multiple decubitus skin ulcers and skin concerns. Patient identified to have a unstageable sacral lower back decubitus ulcer, periwound maceration, area of necrotic eschar soft, no drainage, no abscess, no foul odor Pt presented on admission with contractures, Multiple Pressure injuries.open DTPI sacrum.Wound is open at sacrococcygeal area(40%), with soft necrotic base ( L)5.5cm x (W)4.5cm. Surrounding base of wound is maroon and indurated. Total area of sacral DTPI measures(L) 12.5cm x (W)15cm. Non-blanching erythema periwound.In addition several small partial thickness wounds noted along Perineum.` Areas of hyperpigmentation noted to L and R trochanteric. Full thickness wound R knee.(L)1.1cm x (W)1.5cm.1 Base of wound 90% pink granulation,10% slough noted in center of wound. Borders are macerated.small amt serous exudate. No odor noted. No erythema or fluctuance noted periwound. Non-blanching erythema with fluctuance R heel. Unstageable pressure injury R hallux. Base of wound is 100% soft necrosis. Edges adherent and dry.No odor or exudate noted.Surrounding darker skin tone without erythema or fluctuance(L)2.6cm x (W)3cm. DTPI R Ankle(L)0.9cm x (W)1.6cm. Base of wound is fluctuant, maroon with marginal erythema. Periwound without erythema or fluctuance. Unstageable pressure injury distal/lateral R foot. Base of wound 100% soft necrosis with surrounding non-blanching erythema with fluctuance.(L)2cm x (W) 0.9cm. Stable dry eschar medial/lateral R foot (L)0.4cm x (W)0.8cm. Stable dry eschar lateral L heel.(L)1.9cm x (W)2.2cm. No erythema or fluctuance periwound. Unstable pressure injury medial/lateral L foot. Base of wound is 100% necrotic but dry.(L)0.7cm x (W)0.8cm. Unstageable pressure injury distal/lateral L foot. Base of wound is 100% necrotic but dry. (L)1.2cm x (W)1.6cm.non-blanching erythema without fluctuance periwound. Non-blanching erythema without fluctuance lateral L 5th metatarsal.(L)1.5cm x (W )0.5cm. Open DTPI L Hallux.Base of wound has mixed necrosis and slough with surrounding base of wound maroon with fluctuance. Non-blanching erythema without elevation in skin temp,or fluctuance periwound. Tx.plan: Cleanse Sacral wound with Saline. Apply TheraHoney. Apply Moisture Barrier Paste Periwound. Cover with Optifoam drsg. Change Daily and prn. Swab R nee with Betadine. Cover with Optifoam drsg every 3 days and prn. Swab wounds R foot with Betadine. Cover each wound with Optifoam drsg. Change every 3 days and prn. Swab wounds L foot with Betadine. Cover each wound with Optifoam drsg. Change every 3 days and prn. Reposition at least every 2hours or as tolerated. Place pillow between knees. Off-load heels with Pillow. APM/ARIEL Mattress. DAILY ESTIMATED NEEDS: Needs based on Wounds, underweight 50kg 30-35 kcals/kg [id number] total kcals 1.25-2 g protein/kg 63-100 g total protein 25-30 mL/kg 4242-6059 total fluid mLs NUTRITION DIAGNOSIS: Increased kcal and pro needs r/t underweight status and wound healing as evidenced by pt @85% [place] Body Weight w/ multiple wounds, eval pending, pt is PEG dep. CURRENT TF:Glucerna 1.5 @60ml x20 hrs ENTERAL NUTRITION RECOMMENDATIONS: Maintain current TF as tolerated: Glucerna 1.5 @60ml/hr x20 hrs to provide 1200ml, 1800 kcal, 99g pro, 911ml free H2o -> Monitor for hypoglycemia and need to change to non carb control formula -> Flush per MD. HOB over 30 degrees ADDITIONAL RECOMMENDATIONS: 1) On iso, per SNF pt is: 65 inches + 110#/50kg 2) Wound care: add MATT in 4oz H2O BID via GT F/up w/ WC eval 3) Maintain calibrated bed scale wts 4) Monitor for continued hypoglycemic events, need for D5 or TF change Luther Mercedes Feb 19, 2020 12:48
--- NOTE | 2020-02-19 13:59 | Hematology/Onc Progress Note ---
Assessment/Plan Assessment/Plan Assessment and Recs: # Leukocytosis likely due to sepsi and citrobacter bacteremia, vre/enterococcus uti, fungemia risk --> imaging has since been reviewed --> peripheral smear is negative --> abx as per id: meropenem/linezolid --> flow cytometry if doesn't improve by next week --> c diff and covid 19 negative --> wbc trend: 21.9-->21.9-->14.8 # Anemia likely due to iron deficiency --> ferritin is ordered, other anemia panel reviewed --> hgb trend 8.6-->8.8-->9.3 -->9-->8.9 --> hgb goal greater than 7, transfuse as needed --> no evidence of hemolysis is noted --> prbc: 1 unit 02/16/2020 # hypernatremia due to free water deficit of close to 3L-improved --> per renal --> on ivfs # 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 Subjective Allergies: Coded Allergies: No Known Allergies (Unverified , 01/30/20) Subjective 02/16 s/p 1 unit rbc, hgb 9.3, on iv iron, covid 19 negative 02/17 no events, this am, right sided weakness, labs are noted, reviewed, dw gi 02/18 s/p cysto, stool ob negative, labs reviewed, on room air Objective Objective Current Medications Medications (Trade) Dose Ordered Sig/Moreno Route PRN Reason Start Time Stop Time Status Last Admin Dose Admin Acetaminophen (Tylenol) 650 mg Q4H PRN GT Mild Pain/Temp > 100.5 02/09/20 14:30 03/08/20 10:29 02/10/20 22:07 Amlodipine Besylate (Norvasc) 10 mg DAILY ORAL 02/16/20 09:00 03/17/20 08:59 02/19/20 09:38 Aspirin (ASA) 81 mg DAILY GT 02/11/20 09:00 03/27/20 08:59 02/19/20 09:38 Atorvastatin Calcium (Lipitor) 40 mg BEDTIME ORAL 02/09/20 21:00 04/29/20 20:59 02/18/20 21:21 Dextrose (Dextrose 50%) 25 ml Q30M PRN IV Hypoglycemia 02/09/20 14:30 04/29/20 18:59 Dextrose (Dextrose 50%) 50 ml Q30M PRN IV Hypoglycemia 02/09/20 14:30 04/29/20 18:59 Diphenhydramine HCl (Benadryl) 25 mg Q6H PRN ORAL Itching/Pruritis 02/09/20 15:00 03/10/20 14:59 Diphenoxylate HCl/ Atropine (Lomotil) 2.5 mg Q4H PRN GT Diarrhea 02/09/20 15:00 03/08/20 14:59 Fluconazole/ Sodium Chloride 100 ml @ 100 mls/hr Q24H IV 02/14/20 22:00 02/21/20 21:59 02/18/20 21:20 Levothyroxine Sodium (Synthroid) 25 mcg DAILY@0630 ORAL 02/10/20 06:30 03/01/20 06:29 02/19/20 06:33 Linezolid 300 ml @ 300 mls/hr EVERY 12 HOURS IVPB 02/14/20 19:30 02/21/20 19:29 02/19/20 09:38 Loperamide HCl (Imodium) 2 mg Q3H PRN NG Diarrhea 02/10/20 12:45 03/11/20 12:44 02/18/20 06:32 Meropenem 1 gm/ Sodium Chloride 55 ml @ 110 mls/hr Q12H IVPB 02/19/20 02:00 02/24/20 01:59 02/19/20 02:00 Metoprolol Tartrate (Lopressor) 50 mg Q12HR GT 02/17/20 21:00 05/13/20 08:59 02/19/20 09:38 Ondansetron HCl (Zofran) 4 mg Q6H PRN IVP Nausea & Vomiting 02/09/20 15:00 02/29/20 14:59 Last 24 Hour Vital Signs Date Time Temp Pulse Resp B/P (MAP) Pulse Ox O2 Delivery O2 Flow Rate FiO2 02/19/20 12:00 91 02/19/20 12:00 97.9 94 18 117/71 (86) 97 02/19/20 09:38 109 133/67 02/19/20 09:38 109 133/67 02/19/20 09:00 Room Air 02/19/20 08:00 97.9 109 18 133/67 (89) 99 02/19/20 08:00 110 02/19/20 04:00 98.1 103 18 109/69 (82) 99 02/19/20 04:00 100 02/19/20 00:00 97 02/18/20 23:32 97.6 100 20 136/66 (89) 97 02/18/20 21:00 82 105/66 02/18/20 21:00 Room Air 02/18/20 20:00 97.5 95 23 105/66 (79) 99 02/18/20 20:00 93 02/18/20 16:56 97 02/18/20 16:43 97.2 98 22 110/68 (82) 98 02/18/20 16:20 97.3 95 5 106/62 100 Nasal Cannula 3 02/18/20 16:15 96 14 102/59 100 Simple Mask 6 02/18/20 16:05 96 15 104/60 100 Simple Mask 6 02/18/20 16:00 97 14 98/56 100 Simple Mask 6 02/18/20 15:55 98 13 96/53 100 Simple Mask 6 02/18/20 15:50 100 14 97/55 100 Simple Mask 6 02/18/20 15:48 102 18 96 02/18/20 15:45 97.5 114 16 94/48 100 Simple Mask 6 02/18/20 12:00 98.1 95 18 126/87 (100) 95 02/18/20 12:00 96 02/18/20 09:46 101 146/79 02/18/20 09:46 101 146/79 02/18/20 09:00 Room Air 02/18/20 08:00 98 02/18/20 08:00 98.6 101 18 146/79 (101) 98 02/18/20 04:00 98.6 105 20 139/74 (95) 95 02/18/20 03:39 101 02/18/20 00:00 98.4 104 20 141/91 (108) 96 02/17/20 23:32 100 02/17/20 21:39 107 128/72 02/17/20 21:00 Room Air 02/17/20 20:00 98.8 107 20 128/72 (90) 96 02/17/20 20:00 102 02/17/20 16:00 116 Intake and Output 02/18/20 02/19/20 19:00 07:00 Intake Total 400 ml Output Total 10 ml 700 ml Balance 390 ml -700 ml IV Total 300 ml Hemodialysis 100 ml Output Urine Total 700 ml Estimated Blood Loss 10 ml # Voids 1 # Bowel Movements 2 Labs Test 02/16/20 22:20 02/17/20 06:10 02/17/20 06:25 02/17/20 11:30 White Blood Count 21.1 K/UL (4.8-10.8) 21.9 K/UL (4.8-10.8) Red Blood Count 3.10 M/UL (4.20-5.40) 3.28 M/UL (4.20-5.40) Hemoglobin 8.6 G/DL (12.0-16.0) 9.3 G/DL (12.0-16.0) Hematocrit 26.3 % (37.0-47.0) 27.2 % (37.0-47.0) Mean Corpuscular Volume 85 FL (80-99) 83 FL (80-99) Mean Corpuscular Hemoglobin 27.8 PG (27.0-31.0) 28.5 PG (27.0-31.0) Mean Corpuscular Hemoglobin Concent 32.8 G/DL (32.0-36.0) 34.3 G/DL (32.0-36.0) Red Cell Distribution Width 15.4 % (11.6-14.8) 13.7 % (11.6-14.8) Platelet Count 400 K/UL (150-450) 409 K/UL (150-450) Mean Platelet Volume 7.2 FL (6.5-10.1) 5.8 FL (6.5-10.1) Neutrophils (%) (Auto) % (45.0-75.0) % (45.0-75.0) Lymphocytes (%) (Auto) % (20.0-45.0) % (20.0-45.0) Monocytes (%) (Auto) % (1.0-10.0) % (1.0-10.0) Eosinophils (%) (Auto) % (0.0-3.0) % (0.0-3.0) Basophils (%) (Auto) % (0.0-2.0) % (0.0-2.0) Differential Total Cells Counted 100 100 Neutrophils % (Manual) 86 % (45-75) 93 % (45-75) Lymphocytes % (Manual) 7 % (20-45) 4 % (20-45) Monocytes % (Manual) 4 % (1-10) 3 % (1-10) Eosinophils % (Manual) 0 % (0-3) 0 % (0-3) Basophils % (Manual) 0 % (0-2) 0 % (0-2) Band Neutrophils 3 % (0-8) 0 % (0-8) Platelet Estimate Adequate Adequate Platelet Morphology Normal Normal Hypochromasia 1+ Anisocytosis 1+ Ferritin 1075 NG/ML (8-388) Red Blood Cell Morphology Normal Sodium Level 135 MMOL/L (136-145) Potassium Level 4.0 MMOL/L (3.5-5.1) Chloride Level 102 MMOL/L (98-107) Carbon Dioxide Level 20 MMOL/L (21-32) Anion Gap 13 mmol/L (5-15) Blood Urea Nitrogen 17 mg/dL (7-18) Creatinine 0.9 MG/DL (0.55-1.30) Estimat Glomerular Filtration Rate > 60 mL/min (>60) Glucose Level 131 MG/DL (74-106) Calcium Level 8.2 MG/DL (8.5-10.1) Total Bilirubin 0.2 MG/DL (0.2-1.0) Aspartate Amino Transf (AST/SGOT) 25 U/L (15-37) Alanine Aminotransferase (ALT/SGPT) 29 U/L (12-78) Alkaline Phosphatase 126 U/L (46-116) Total Protein 6.6 G/DL (6.4-8.2) Albumin 1.3 G/DL (3.4-5.0) Globulin 5.3 g/dL Albumin/Globulin Ratio 0.2 (1.0-2.7) Stool Occult Blood Negative (NEGATIVE) Test 4/6/20 10:40 02/19/20 05:54 White Blood Count 20.0 K/UL (4.8-10.8) 14.8 K/UL (4.8-10.8) Red Blood Count 3.36 M/UL (4.20-5.40) 3.16 M/UL (4.20-5.40) Hemoglobin 9.5 G/DL (12.0-16.0) 8.9 G/DL (12.0-16.0) Hematocrit 27.7 % (37.0-47.0) 26.1 % (37.0-47.0) Mean Corpuscular Volume 82 FL (80-99) 83 FL (80-99) Mean Corpuscular Hemoglobin 28.2 PG (27.0-31.0) 28.2 PG (27.0-31.0) Mean Corpuscular Hemoglobin Concent 34.2 G/DL (32.0-36.0) 34.0 G/DL (32.0-36.0) Red Cell Distribution Width 13.7 % (11.6-14.8) 14.1 % (11.6-14.8) Platelet Count 399 K/UL (150-450) 346 K/UL (150-450) Mean Platelet Volume 5.9 FL (6.5-10.1) 6.0 FL (6.5-10.1) Neutrophils (%) (Auto) % (45.0-75.0) 84.7 % (45.0-75.0) Lymphocytes (%) (Auto) % (20.0-45.0) 5.1 % (20.0-45.0) Monocytes (%) (Auto) % (1.0-10.0) 6.4 % (1.0-10.0) Eosinophils (%) (Auto) % (0.0-3.0) 2.6 % (0.0-3.0) Basophils (%) (Auto) % (0.0-2.0) 1.2 % (0.0-2.0) Differential Total Cells Counted 100 Neutrophils % (Manual) 97 % (45-75) Lymphocytes % (Manual) 2 % (20-45) Monocytes % (Manual) 1 % (1-10) Eosinophils % (Manual) 0 % (0-3) Basophils % (Manual) 0 % (0-2) Band Neutrophils 0 % (0-8) Platelet Estimate Adequate Platelet Morphology Normal Hypochromasia 2+ Anisocytosis 1+ Sodium Level 135 MMOL/L (136-145) 138 MMOL/L (136-145) Potassium Level 4.0 MMOL/L (3.5-5.1) 4.1 MMOL/L (3.5-5.1) Chloride Level 102 MMOL/L (98-107) 104 MMOL/L (98-107) Carbon Dioxide Level 22 MMOL/L (21-32) 25 MMOL/L (21-32) Anion Gap 11 mmol/L (5-15) 9 mmol/L (5-15) Blood Urea Nitrogen 17 mg/dL (7-18) 18 mg/dL (7-18) Creatinine 0.8 MG/DL (0.55-1.30) 0.9 MG/DL (0.55-1.30) Estimat Glomerular Filtration Rate > 60 mL/min (>60) > 60 mL/min (>60) Glucose Level 186 MG/DL (74-106) 113 MG/DL (74-106) Calcium Level 8.2 MG/DL (8.5-10.1) 8.1 MG/DL (8.5-10.1) Micro Microbiology Date/Time Source Procedure Growth Status 02/18/20 14:51 Urine,Ureter/Kidney Urine Culture - Preliminary NO GROWTH Resulted Height (Feet): 5 Height (Inches): 1.00 Weight (Pounds): 142 Objective Review of Systems: negative Physical Exam Vitals: reviewed General Appearance: other - Contracted elderly female nonverbal Head: normocephalic, atraumatic Neck: full range of motion, supple Resp: chest non-tender, lungs clear, speaking full sentences Cardiovascular: tachycardia Gi: non tender, soft, GT+ Gu: Tovar catheter in place Psychiatric: nonverbal Skin: no rash Fermin Baum MD Feb 19, 2020 13:58
[2020-02-19 16:00] VITALS: BP 149/82
--- NOTE | 2020-02-19 18:38 | Neurology Progress Note ---
Interim History Interim History ROS Limited/Unobtainable: Yes Interim History tracking with eyes more alert Objective Physical Exam Last Vital Signs Date Time Temp Pulse Resp B/P (MAP) Pulse Ox O2 Delivery O2 Flow Rate FiO2 02/19/20 16:00 97 02/19/20 16:00 97.5 18 149/82 (104) 97 02/19/20 09:00 Room Air 02/18/20 16:20 3 Laboratory Tests Test 02/19/20 05:54 White Blood Count 14.8 K/UL (4.8-10.8) H Red Blood Count 3.16 M/UL (4.20-5.40) L Hemoglobin 8.9 G/DL (12.0-16.0) L Hematocrit 26.1 % (37.0-47.0) L Mean Corpuscular Volume 83 FL (80-99) Mean Corpuscular Hemoglobin 28.2 PG (27.0-31.0) Mean Corpuscular Hemoglobin Concent 34.0 G/DL (32.0-36.0) Red Cell Distribution Width 14.1 % (11.6-14.8) Platelet Count 346 K/UL (150-450) Mean Platelet Volume 6.0 FL (6.5-10.1) L Neutrophils (%) (Auto) 84.7 % (45.0-75.0) H Lymphocytes (%) (Auto) 5.1 % (20.0-45.0) L Monocytes (%) (Auto) 6.4 % (1.0-10.0) Eosinophils (%) (Auto) 2.6 % (0.0-3.0) Basophils (%) (Auto) 1.2 % (0.0-2.0) Sodium Level 138 MMOL/L (136-145) Potassium Level 4.1 MMOL/L (3.5-5.1) Chloride Level 104 MMOL/L (98-107) Carbon Dioxide Level 25 MMOL/L (21-32) Anion Gap 9 mmol/L (5-15) Blood Urea Nitrogen 18 mg/dL (7-18) Creatinine 0.9 MG/DL (0.55-1.30) Estimat Glomerular Filtration Rate > 60 mL/min (>60) Glucose Level 113 MG/DL (74-106) H Calcium Level 8.1 MG/DL (8.5-10.1) L Head: normocophalic, atraumatic Neck: no rigidity EENT: benign Neurologic Exam Sensory: other - cc 35 min Objective alert, tracks with eyes, Right sided weaker than left Impression/Recommendations Problems: (1) Septic shock (2) Anemia (3) Elevated troponin (4) Sepsis (5) Decubitus skin ulcer Status: stable Diagnostic Impression Acute encephalopathy in the context of sepsis Dementia, likely vascular Hx of strokes Monitor neuro exam Delirium precautions atb per primary asa daily PT OT Luis Nash MD Feb 19, 2020 18:38
[2020-02-19] MEDS: Atorvastatin 20mg tab ORAL SCH (20:32)
[2020-02-19 20:38] VITALS: BP 124/71
[2020-02-20] VITALS: BP_SYST 107; BP_SYST 116; BP_DIAS 92
[2020-02-20] MEDS: Meropenem 1 GM in NS 55 ML IVPB SCH ×2 (02:06→14:00)
[2020-02-20 04:00] VITALS: BP 109/74
[2020-02-20] MEDS: Levothyroxine 25mcg tab ORAL SCH (05:56)
[2020-02-20 07:57] LABS: ANION GAP 8 mmol/L (5-15); BLOOD UREA NITROGEN 19 mg/dL (7-18); CALCIUM 8.2 MG/DL (8.5-10.1); CARBON DIOXIDE 25 MMOL/L (21-32); CHLORIDE 106 MMOL/L (98-107); CREATININE 0.9 MG/DL (0.55-1.30); POTASSIUM 4.2 MMOL/L (3.5-5.1); SODIUM 139 MMOL/L (136-145)
[2020-02-20 08:00] VITALS: BP 130/82
[2020-02-20 08:25] LABS: EOSINOPHILS % (AUTO) 5.6 % (0.0-3.0); HEMOGLOBIN 8.4 G/DL (12.0-16.0); LYMPHOCYTES % (AUTO) 5.9 % (20.0-45.0); MEAN CORPUSCULAR VOLUME 84 FL (80-99); MONOCYTES % (AUTO) 6.1 % (1.0-10.0); NEUTROPHILS % (AUTO) 81.4 % (45.0-75.0); PLATELET COUNT 308 K/UL (150-450); RED BLOOD COUNT 2.99 M/UL (4.20-5.40); RED CELL DISTRIBUTION WIDTH 14.3 % (11.6-14.8); WHITE BLOOD COUNT 11.9 K/UL (4.8-10.8)
--- NOTE | 2020-02-20 08:53 | Neurology Progress Note ---
Interim History Interim History ROS Limited/Unobtainable: Yes Interim History no new neuro deficits Objective Physical Exam Last Vital Signs Date Time Temp Pulse Resp B/P (MAP) Pulse Ox O2 Delivery O2 Flow Rate FiO2 02/20/20 04:00 97.5 96 18 109/74 (86) 97 02/19/20 21:00 Room Air 02/18/20 16:20 3 Laboratory Tests Test 02/20/20 06:19 White Blood Count 11.9 K/UL (4.8-10.8) H Red Blood Count 2.99 M/UL (4.20-5.40) L Hemoglobin 8.4 G/DL (12.0-16.0) L Hematocrit 25.0 % (37.0-47.0) L Mean Corpuscular Volume 84 FL (80-99) Mean Corpuscular Hemoglobin 28.3 PG (27.0-31.0) Mean Corpuscular Hemoglobin Concent 33.8 G/DL (32.0-36.0) Red Cell Distribution Width 14.3 % (11.6-14.8) Platelet Count 308 K/UL (150-450) Mean Platelet Volume 5.9 FL (6.5-10.1) L Neutrophils (%) (Auto) 81.4 % (45.0-75.0) H Lymphocytes (%) (Auto) 5.9 % (20.0-45.0) L Monocytes (%) (Auto) 6.1 % (1.0-10.0) Eosinophils (%) (Auto) 5.6 % (0.0-3.0) H Basophils (%) (Auto) 1.0 % (0.0-2.0) Sodium Level 139 MMOL/L (136-145) Potassium Level 4.2 MMOL/L (3.5-5.1) Chloride Level 106 MMOL/L (98-107) Carbon Dioxide Level 25 MMOL/L (21-32) Anion Gap 8 mmol/L (5-15) Blood Urea Nitrogen 19 mg/dL (7-18) H Creatinine 0.9 MG/DL (0.55-1.30) Estimat Glomerular Filtration Rate > 60 mL/min (>60) Glucose Level 107 MG/DL (74-106) H Calcium Level 8.2 MG/DL (8.5-10.1) L Head: normocophalic, atraumatic Neck: no rigidity EENT: benign Neurologic Exam Sensory: other - cc 35 min Objective alert, tracks with eyes, Right sided weaker than left Impression/Recommendations Problems: (1) Septic shock (2) Anemia (3) Elevated troponin (4) Sepsis (5) Decubitus skin ulcer Status: stable Diagnostic Impression Acute encephalopathy in the context of sepsis Dementia, likely vascular Hx of strokes Monitor neuro exam Delirium precautions atb per primary asa daily PT OT Luis Nash MD Feb 20, 2020 08:53
[2020-02-20] MEDS: Aspirin Baby 81mg GT SCH (09:11)
[2020-02-20] MEDS: Metoprolol Tartrate 50mg tab GT SCH ×2 (09:12→20:34)
--- NOTE | 2020-02-20 09:22 | Hematology/Onc Progress Note ---
Assessment/Plan Assessment/Plan Assessment and Recs: # Leukocytosis likely due to sepsi and citrobacter bacteremia, vre/enterococcus uti, fungemia risk --> imaging has since been reviewed --> peripheral smear is negative --> abx as per id: meropenem/linezolid --> flow cytometry if doesn't improve by next week --> c diff and covid 19 negative --> wbc trend: 21.9-->21.9-->14.8 ->12 # Anemia likely due to iron deficiency --> ferritin is ordered, other anemia panel reviewed --> hgb trend 8.6-->8.8-->9.3 -->9-->8.9-->8.4 --> hgb goal greater than 7, transfuse as needed --> no evidence of hemolysis is noted --> prbc: 1 unit 02/16/2020 # hypernatremia due to free water deficit of close to 3L-improved --> per renal --> on ivfs # 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 Subjective Allergies: Coded Allergies: No Known Allergies (Unverified , 01/30/20) All Systems: reviewed and negative except above Subjective 02/16 s/p 1 unit rbc, hgb 9.3, on iv iron, covid 19 negative 02/17 no events, this am, right sided weakness, labs are noted, reviewed, dw gi 02/18 s/p cysto, stool ob negative, labs reviewed, on room air 02/19 remains same, labs noted, nonverbal, unable to do ros hgb 8.4 Objective Objective Current Medications Medications (Trade) Dose Ordered Sig/Moreno Route PRN Reason Start Time Stop Time Status Last Admin Dose Admin Acetaminophen (Tylenol) 650 mg Q4H PRN GT Mild Pain/Temp > 100.5 02/09/20 14:30 03/08/20 10:29 02/10/20 22:07 Amlodipine Besylate (Norvasc) 10 mg DAILY ORAL 02/16/20 09:00 03/17/20 08:59 02/20/20 09:11 Aspirin (ASA) 81 mg DAILY GT 02/11/20 09:00 03/27/20 08:59 02/20/20 09:11 Atorvastatin Calcium (Lipitor) 40 mg BEDTIME ORAL 02/09/20 21:00 04/29/20 20:59 02/19/20 20:32 Dextrose (Dextrose 50%) 25 ml Q30M PRN IV Hypoglycemia 02/09/20 14:30 04/29/20 18:59 Dextrose (Dextrose 50%) 50 ml Q30M PRN IV Hypoglycemia 02/09/20 14:30 04/29/20 18:59 Diphenhydramine HCl (Benadryl) 25 mg Q6H PRN ORAL Itching/Pruritis 02/09/20 15:00 03/10/20 14:59 Diphenoxylate HCl/ Atropine (Lomotil) 2.5 mg Q4H PRN GT Diarrhea 02/09/20 15:00 03/08/20 14:59 Fluconazole/ Sodium Chloride 100 ml @ 100 mls/hr Q24H IV 02/14/20 22:00 02/21/20 21:59 02/19/20 22:12 Levothyroxine Sodium (Synthroid) 25 mcg DAILY@0630 ORAL 02/10/20 06:30 03/01/20 06:29 02/20/20 05:56 Linezolid 300 ml @ 300 mls/hr EVERY 12 HOURS IVPB 02/14/20 19:30 02/21/20 19:29 02/20/20 09:11 Loperamide HCl (Imodium) 2 mg Q3H PRN NG Diarrhea 02/10/20 12:45 03/11/20 12:44 02/18/20 06:32 Meropenem 1 gm/ Sodium Chloride 55 ml @ 110 mls/hr Q12H IVPB 02/19/20 02:00 02/24/20 01:59 02/20/20 02:06 Metoprolol Tartrate (Lopressor) 50 mg Q12HR GT 02/17/20 21:00 05/13/20 08:59 02/20/20 09:12 Ondansetron HCl (Zofran) 4 mg Q6H PRN IVP Nausea & Vomiting 02/09/20 15:00 02/29/20 14:59 Last 24 Hour Vital Signs Date Time Temp Pulse Resp B/P (MAP) Pulse Ox O2 Delivery O2 Flow Rate FiO2 02/20/20 09:12 98 130/82 02/20/20 09:11 98 130/82 02/20/20 08:00 97.2 98 18 130/82 (98) 100 02/20/20 04:00 97.5 96 18 109/74 (86) 97 02/20/20 03:44 94 02/20/20 00:00 97.5 90 18 107/92 (97) 97 02/19/20 23:31 89 02/19/20 21:00 Room Air 02/19/20 20:38 97.5 110 18 124/71 (88) 97 02/19/20 20:32 110 124/71 02/19/20 19:52 105 02/19/20 16:00 97 02/19/20 16:00 97.5 104 18 149/82 (104) 97 02/19/20 12:00 91 02/19/20 12:00 97.9 94 18 117/71 (86) 97 02/19/20 09:38 109 133/67 02/19/20 09:38 109 133/67 02/19/20 09:00 Room Air 02/19/20 08:00 97.9 109 18 133/67 (89) 99 02/19/20 08:00 110 02/19/20 04:00 98.1 103 18 109/69 (82) 99 02/19/20 04:00 100 02/19/20 00:00 97 02/18/20 23:32 97.6 100 20 136/66 (89) 97 02/18/20 21:00 82 105/66 02/18/20 21:00 Room Air 02/18/20 20:00 97.5 95 23 105/66 (79) 99 02/18/20 20:00 93 02/18/20 16:56 97 02/18/20 16:43 97.2 98 22 110/68 (82) 98 02/18/20 16:20 97.3 95 5 106/62 100 Nasal Cannula 3 02/18/20 16:15 96 14 102/59 100 Simple Mask 6 02/18/20 16:05 96 15 104/60 100 Simple Mask 6 02/18/20 16:00 97 14 98/56 100 Simple Mask 6 02/18/20 15:55 98 13 96/53 100 Simple Mask 6 02/18/20 15:50 100 14 97/55 100 Simple Mask 6 02/18/20 15:48 102 18 96 02/18/20 15:45 97.5 114 16 94/48 100 Simple Mask 6 02/18/20 12:00 98.1 95 18 126/87 (100) 95 02/18/20 12:00 96 02/18/20 09:46 101 146/79 02/18/20 09:46 101 146/79 Intake and Output 02/19/20 02/20/20 19:00 07:00 Intake Total 260 ml 1370 ml Output Total 350 ml 700 ml Balance -90 ml 670 ml Free Water 200 ml 200 ml IV Total 510 ml Tube Feeding 60 ml 660 ml Output Urine Total 350 ml 700 ml # Bowel Movements 2 2 Labs Test 02/17/20 11:30 02/18/20 10:40 02/19/20 05:54 02/20/20 06:19 Stool Occult Blood Negative (NEGATIVE) White Blood Count 20.0 K/UL (4.8-10.8) 14.8 K/UL (4.8-10.8) 11.9 K/UL (4.8-10.8) Red Blood Count 3.36 M/UL (4.20-5.40) 3.16 M/UL (4.20-5.40) 2.99 M/UL (4.20-5.40) Hemoglobin 9.5 G/DL (12.0-16.0) 8.9 G/DL (12.0-16.0) 8.4 G/DL (12.0-16.0) Hematocrit 27.7 % (37.0-47.0) 26.1 % (37.0-47.0) 25.0 % (37.0-47.0) Mean Corpuscular Volume 82 FL (80-99) 83 FL (80-99) 84 FL (80-99) Mean Corpuscular Hemoglobin 28.2 PG (27.0-31.0) 28.2 PG (27.0-31.0) 28.3 PG (27.0-31.0) Mean Corpuscular Hemoglobin Concent 34.2 G/DL (32.0-36.0) 34.0 G/DL (32.0-36.0) 33.8 G/DL (32.0-36.0) Red Cell Distribution Width 13.7 % (11.6-14.8) 14.1 % (11.6-14.8) 14.3 % (11.6-14.8) Platelet Count 399 K/UL (150-450) 346 K/UL (150-450) 308 K/UL (150-450) Mean Platelet Volume 5.9 FL (6.5-10.1) 6.0 FL (6.5-10.1) 5.9 FL (6.5-10.1) Neutrophils (%) (Auto) % (45.0-75.0) 84.7 % (45.0-75.0) 81.4 % (45.0-75.0) Lymphocytes (%) (Auto) % (20.0-45.0) 5.1 % (20.0-45.0) 5.9 % (20.0-45.0) Monocytes (%) (Auto) % (1.0-10.0) 6.4 % (1.0-10.0) 6.1 % (1.0-10.0) Eosinophils (%) (Auto) % (0.0-3.0) 2.6 % (0.0-3.0) 5.6 % (0.0-3.0) Basophils (%) (Auto) % (0.0-2.0) 1.2 % (0.0-2.0) 1.0 % (0.0-2.0) Differential Total Cells Counted 100 Neutrophils % (Manual) 97 % (45-75) Lymphocytes % (Manual) 2 % (20-45) Monocytes % (Manual) 1 % (1-10) Eosinophils % (Manual) 0 % (0-3) Basophils % (Manual) 0 % (0-2) Band Neutrophils 0 % (0-8) Platelet Estimate Adequate Platelet Morphology Normal Hypochromasia 2+ Anisocytosis 1+ Sodium Level 135 MMOL/L (136-145) 138 MMOL/L (136-145) 139 MMOL/L (136-145) Potassium Level 4.0 MMOL/L (3.5-5.1) 4.1 MMOL/L (3.5-5.1) 4.2 MMOL/L (3.5-5.1) Chloride Level 102 MMOL/L (98-107) 104 MMOL/L (98-107) 106 MMOL/L (98-107) Carbon Dioxide Level 22 MMOL/L (21-32) 25 MMOL/L (21-32) 25 MMOL/L (21-32) Anion Gap 11 mmol/L (5-15) 9 mmol/L (5-15) 8 mmol/L (5-15) Blood Urea Nitrogen 17 mg/dL (7-18) 18 mg/dL (7-18) 19 mg/dL (7-18) Creatinine 0.8 MG/DL (0.55-1.30) 0.9 MG/DL (0.55-1.30) 0.9 MG/DL (0.55-1.30) Estimat Glomerular Filtration Rate > 60 mL/min (>60) > 60 mL/min (>60) > 60 mL/min (>60) Glucose Level 186 MG/DL (74-106) 113 MG/DL (74-106) 107 MG/DL (74-106) Calcium Level 8.2 MG/DL (8.5-10.1) 8.1 MG/DL (8.5-10.1) 8.2 MG/DL (8.5-10.1) Height (Feet): 5 Height (Inches): 1.00 Weight (Pounds): 127 Objective Review of Systems: negative Physical Exam Vitals: reviewed General Appearance: other - Contracted elderly female nonverbal Head: normocephalic, atraumatic Neck: full range of motion, supple Resp: chest non-tender, lungs clear, speaking full sentences Cardiovascular: tachycardia Gi: non tender, soft, GT+ Gu: Tovar catheter in place Psychiatric: nonverbal Skin: no rash Fermin Baum MD Feb 20, 2020 09:22
--- NOTE | 2020-02-20 09:29 | General Progress Note ---
Assessment/Plan Problem List: (1) Diarrhea ICD Codes: R19.7 - Diarrhea, unspecified SNOMED: 34384905 (2) GI (gastrointestinal bleed) ICD Codes: K92.2 - Gastrointestinal hemorrhage, unspecified SNOMED: 25353707 (3) Elevated troponin ICD Codes: R79.89 - Other specified abnormal findings of blood chemistry; R65.21 - Severe sepsis with septic shock SNOMED: 644629738, 971597495, 897247443 (4) Anemia ICD Codes: D64.9 - Anemia, unspecified SNOMED: 382042345 (5) Septic shock ICD Codes: A41.9 - Sepsis, unspecified organism; R65.21 - Severe sepsis with septic shock SNOMED: 92964561 Status: stable Assessment/Plan: diarrhea is better with Lomotil and Imodium neg stool C.diff ppi>>> will dc TF , Glucerna 1.2 s/p blood transfusion last week COVID >>> neg given active FL and stable H&H will hold GI procedures for now repeat stool ob>>> neg repeat CBC fu ID regarding ABX treatment of Pylo fu repeat CT>>> reviewed>>>fu ID recs fu urology recs for hematuria Subjective ROS Limited/Unobtainable: No Allergies: Coded Allergies: No Known Allergies (Unverified , 01/30/20) Objective Last 24 Hour Vital Signs Date Time Temp Pulse Resp B/P (MAP) Pulse Ox O2 Delivery O2 Flow Rate FiO2 02/20/20 09:12 98 130/82 02/20/20 09:11 98 130/82 02/20/20 08:00 97.2 98 18 130/82 (98) 100 02/20/20 04:00 97.5 96 18 109/74 (86) 97 02/20/20 03:44 94 02/20/20 00:00 97.5 90 18 107/92 (97) 97 02/19/20 23:31 89 02/19/20 21:00 Room Air 02/19/20 20:38 97.5 110 18 124/71 (88) 97 02/19/20 20:32 110 124/71 02/19/20 19:52 105 02/19/20 16:00 97 02/19/20 16:00 97.5 104 18 149/82 (104) 97 02/19/20 12:00 91 02/19/20 12:00 97.9 94 18 117/71 (86) 97 02/19/20 09:38 109 133/67 02/19/20 09:38 109 133/67 Intake and Output 02/19/20 02/20/20 19:00 07:00 Intake Total 260 ml 1370 ml Output Total 350 ml 700 ml Balance -90 ml 670 ml Free Water 200 ml 200 ml IV Total 510 ml Tube Feeding 60 ml 660 ml Output Urine Total 350 ml 700 ml # Bowel Movements 2 2 Laboratory Tests 02/20/20 06:19: White Blood Count 11.9H, Red Blood Count 2.99L, Hemoglobin 8.4L, Hematocrit 25.0L, Mean Corpuscular Volume 84, Mean Corpuscular Hemoglobin 28.3, Mean Corpuscular Hemoglobin Concent 33.8, Red Cell Distribution Width 14.3, Platelet Count 308, Mean Platelet Volume 5.9L, Neutrophils (%) (Auto) 81.4H, Lymphocytes (%) (Auto) 5.9L, Monocytes (%) (Auto) 6.1, Eosinophils (%) (Auto) 5.6H, Basophils (%) (Auto) 1.0, Sodium Level 139, Potassium Level 4.2, Chloride Level 106, Carbon Dioxide Level 25, Anion Gap 8, Blood Urea Nitrogen 19H, Creatinine 0.9, Estimat Glomerular Filtration Rate > 60, Glucose Level 107H, Calcium Level 8.2L Height (Feet): 5 Height (Inches): 1.00 Weight (Pounds): 127 General Appearance: no apparent distress EENT: normal ENT inspection Neck: supple Cardiovascular: normal rate Respiratory/Chest: decreased breath sounds Abdomen: normal bowel sounds, non tender, soft Extremities: non-tender Herminio Rodriguez MD Feb 20, 2020 09:29
--- NOTE | 2020-02-20 10:59 | Nephrology Progress Note ---
Assessment/Plan Plan #hypernatremia due to free water deficit of close to 3L-improved #sepsis due to Citrobacter bacteremia #h/o CVA with hemiplegia #DM #COPD # hyperlipidemia #hypothyroidism # GERD # unspecified CHF, S/p PPM # possible hydronephrosis on CT -> monitor off IVF -> monitor for ANGELICA _> CT abd/pelvis w con done on 02/14- left ureteral stent 02/18 - amlodipine 10mg daily - decreased free water flushes to 150 q6hr - monitor bmp daily - continue abx - avoid nephrotoxins - strict I&Os - daily weights - monitor lytes - urology eval -CT abd/pelvis w con done on 02/14- plan fro stent and nephrostomy - monitor Cr closely Subjective Subjective CT abd/pelvis w con done on 02/14- POD # 1, left ureteral stent Renal US: Impression: Moderate to severe left hydronephrosis versus parapelvic cysts mimicking hydronephrosis, versus combination of both. This also described on recent CT scan Atrophic right kidney. Mild right renal collecting system fullness, significance/etiology uncertain Objective Objective Last 24 Hour Vital Signs Date Time Temp Pulse Resp B/P (MAP) Pulse Ox O2 Delivery O2 Flow Rate FiO2 02/20/20 09:12 98 130/82 02/20/20 09:11 98 130/82 02/20/20 08:00 97.2 98 18 130/82 (98) 100 02/20/20 04:00 97.5 96 18 109/74 (86) 97 02/20/20 03:44 94 02/20/20 00:00 97.5 90 18 107/92 (97) 97 02/19/20 23:31 89 02/19/20 21:00 Room Air 02/19/20 20:38 97.5 110 18 124/71 (88) 97 02/19/20 20:32 110 124/71 02/19/20 19:52 105 02/19/20 16:00 97 02/19/20 16:00 97.5 104 18 149/82 (104) 97 02/19/20 12:00 91 02/19/20 12:00 97.9 94 18 117/71 (86) 97 Intake and Output 02/19/20 02/20/20 19:00 07:00 Intake Total 260 ml 1370 ml Output Total 350 ml 700 ml Balance -90 ml 670 ml Free Water 200 ml 200 ml IV Total 510 ml Tube Feeding 60 ml 660 ml Output Urine Total 350 ml 700 ml # Bowel Movements 2 2 Laboratory Tests 02/20/20 06:19: White Blood Count 11.9H, Red Blood Count 2.99L, Hemoglobin 8.4L, Hematocrit 25.0L, Mean Corpuscular Volume 84, Mean Corpuscular Hemoglobin 28.3, Mean Corpuscular Hemoglobin Concent 33.8, Red Cell Distribution Width 14.3, Platelet Count 308, Mean Platelet Volume 5.9L, Neutrophils (%) (Auto) 81.4H, Lymphocytes (%) (Auto) 5.9L, Monocytes (%) (Auto) 6.1, Eosinophils (%) (Auto) 5.6H, Basophils (%) (Auto) 1.0, Sodium Level 139, Potassium Level 4.2, Chloride Level 106, Carbon Dioxide Level 25, Anion Gap 8, Blood Urea Nitrogen 19H, Creatinine 0.9, Estimat Glomerular Filtration Rate > 60, Glucose Level 107H, Calcium Level 8.2L Height (Feet): 5 Height (Inches): 1.00 Weight (Pounds): 127 Objective General Appearance: NAD, otherwise awake, alert, confused Neck: normal alignment, supple CV: RRR Respiratory: lungs clear, normal breath sounds, no respiratory distress Abdomen: non tender, soft, +PEG tube, c/d/i Ext: Contracted bilaterally, multiple abrasions wrapped in bandages C/D/I Cathy Fuller M.D. Feb 20, 2020 10:59
--- NOTE | 2020-02-20 10:59 | Urology Progress Note ---
Assessment/Plan Status: stable Assessment/Plan: 1. Left-sided hydronephrosis. 2. Urinary retention. 3. Neurogenic bladder. 4. Proteinuria. 5. Hematuria. 6. Pyuria. 7. Sepsis history. 8. Cystitis. 9. likely renal cyst. 10. POD # 2, left ureteral stent monitor clinically john indwelling hand irrigated and do PRN monitor renal fxn and WBC, improving on abx, per ID voiding trial later hydro likely chronic, no stones, likely UPJ obst stent placed f/u on last urine cx Subjective Allergies: Coded Allergies: No Known Allergies (Unverified , 01/30/20) Subjective all noted, more alert Objective Last 24 Hour Vital Signs Date Time Temp Pulse Resp B/P (MAP) Pulse Ox O2 Delivery O2 Flow Rate FiO2 02/20/20 09:12 98 130/82 02/20/20 09:11 98 130/82 02/20/20 08:00 97.2 98 18 130/82 (98) 100 02/20/20 04:00 97.5 96 18 109/74 (86) 97 02/20/20 03:44 94 02/20/20 00:00 97.5 90 18 107/92 (97) 97 02/19/20 23:31 89 02/19/20 21:00 Room Air 02/19/20 20:38 97.5 110 18 124/71 (88) 97 02/19/20 20:32 110 124/71 02/19/20 19:52 105 02/19/20 16:00 97 02/19/20 16:00 97.5 104 18 149/82 (104) 97 02/19/20 12:00 91 02/19/20 12:00 97.9 94 18 117/71 (86) 97 Intake and Output 02/19/20 02/20/20 19:00 07:00 Intake Total 260 ml 1370 ml Output Total 350 ml 700 ml Balance -90 ml 670 ml Free Water 200 ml 200 ml IV Total 510 ml Tube Feeding 60 ml 660 ml Output Urine Total 350 ml 700 ml # Bowel Movements 2 2 Microbiology Date/Time Source Procedure Growth Status 02/14/20 21:00 Blood Blood Culture - Final Enterococcus Faecium - Vre Complete 01/30/20 15:45 Nasal Nares MRSA Culture - Final NO METHICILLIN RESISTANT STAPH AUREUS... Complete 02/15/20 06:00 Stool Clostridium difficile Toxin Assay - Final Complete 02/18/20 14:51 Urine,Ureter/Kidney Urine Culture - Preliminary NO GROWTH AFTER 24 HOURS Resulted 01/30/20 15:45 Rectum VRE Culture - Final NO VANCOMYCIN RESISTANT ENTEROCOCCUS ... Complete Current Medications Medications (Trade) Dose Ordered Sig/Moreno Route PRN Reason Start Time Stop Time Status Last Admin Dose Admin Acetaminophen (Tylenol) 650 mg Q4H PRN GT Mild Pain/Temp > 100.5 02/09/20 14:30 03/08/20 10:29 02/10/20 22:07 Amlodipine Besylate (Norvasc) 10 mg DAILY ORAL 02/16/20 09:00 03/17/20 08:59 02/20/20 09:11 Aspirin (ASA) 81 mg DAILY GT 02/11/20 09:00 03/27/20 08:59 02/20/20 09:11 Atorvastatin Calcium (Lipitor) 40 mg BEDTIME ORAL 02/09/20 21:00 04/29/20 20:59 02/19/20 20:32 Dextrose (Dextrose 50%) 25 ml Q30M PRN IV Hypoglycemia 02/09/20 14:30 04/29/20 18:59 Dextrose (Dextrose 50%) 50 ml Q30M PRN IV Hypoglycemia 02/09/20 14:30 04/29/20 18:59 Diphenhydramine HCl (Benadryl) 25 mg Q6H PRN ORAL Itching/Pruritis 02/09/20 15:00 03/10/20 14:59 Diphenoxylate HCl/ Atropine (Lomotil) 2.5 mg Q4H PRN GT Diarrhea 02/09/20 15:00 03/08/20 14:59 Fluconazole/ Sodium Chloride 100 ml @ 100 mls/hr Q24H IV 02/14/20 22:00 02/21/20 21:59 02/19/20 22:12 Levothyroxine Sodium (Synthroid) 25 mcg DAILY@0630 ORAL 02/10/20 06:30 03/01/20 06:29 02/20/20 05:56 Linezolid 300 ml @ 300 mls/hr EVERY 12 HOURS IVPB 02/14/20 19:30 02/21/20 19:29 02/20/20 09:11 Loperamide HCl (Imodium) 2 mg Q3H PRN NG Diarrhea 02/10/20 12:45 03/11/20 12:44 02/18/20 06:32 Meropenem 1 gm/ Sodium Chloride 55 ml @ 110 mls/hr Q12H IVPB 02/19/20 02:00 02/24/20 01:59 02/20/20 02:06 Metoprolol Tartrate (Lopressor) 50 mg Q12HR GT 02/17/20 21:00 05/13/20 08:59 02/20/20 09:12 Ondansetron HCl (Zofran) 4 mg Q6H PRN IVP Nausea & Vomiting 02/09/20 15:00 02/29/20 14:59 Laboratory Tests 02/20/20 06:19: White Blood Count 11.9H, Red Blood Count 2.99L, Hemoglobin 8.4L, Hematocrit 25.0L, Mean Corpuscular Volume 84, Mean Corpuscular Hemoglobin 28.3, Mean Corpuscular Hemoglobin Concent 33.8, Red Cell Distribution Width 14.3, Platelet Count 308, Mean Platelet Volume 5.9L, Neutrophils (%) (Auto) 81.4H, Lymphocytes (%) (Auto) 5.9L, Monocytes (%) (Auto) 6.1, Eosinophils (%) (Auto) 5.6H, Basophils (%) (Auto) 1.0, Sodium Level 139, Potassium Level 4.2, Chloride Level 106, Carbon Dioxide Level 25, Anion Gap 8, Blood Urea Nitrogen 19H, Creatinine 0.9, Estimat Glomerular Filtration Rate > 60, Glucose Level 107H, Calcium Level 8.2L Height (Feet): 5 Height (Inches): 1.00 Weight (Pounds): 127 Objective exam stable john indwelling, evangelina urine with some debris renal u/s (02/11) noted CT A/P with IV contrast (02/14) noted Timothy Leos MD Feb 20, 2020 10:59
--- NOTE | 2020-02-20 11:20 | General Progress Note ---
Assessment/Plan Status: stable Assessment/Plan: 84 year old woman with history of CVA, hemiplegia, DM, COPD, CKD, hyperlipidemia , hypothyroidism, GERD, unspecified CHF, S/p PPM brought in from SNF with hypotension, found to be septic with leukocytosis and minimal pyuria #Sepsis #Citrobacter bacteremia #Enterococcus/VRE UTI #Yeast UTI #Left Hydronephrosis #Leukocytosis - remains elevated #Hypotension - resolved #Elevated lactate - resolved #diarrhea - improved #Fever - resolved -continue inpatient level of care, cardiac monitoring -COVID 19 negative -01/29 BCx +citrobacter, repeat on 02/02 BCx negative -c diff negative on 02/03, 02/14 -Cont.imodium, lomotil per ID -pt w/fever on 02/10: BCx NGTD -02/10: UCx + enterococcus/VRE -02/13 BCx w/GPC in pairs -CT A/p and renal US reviewed -CT abd/pel w/contrast 02/14: Evidence of left renal infection/UTI/Mathew with perinephric stranding, left hydronephrosis, duplicated left renal collecting system, atrophic right kidney -ID following: continue current antibiotics, will discuss duration of antibiotics in preparation for discharge back to SNF this week. -S/p cysto with left sided ureteral stent placement 02/17 #NSTEMI #HTN #HLD #Elevated BNP #S/p PPM, [facility] DDD #Sinus tachycardia -Echo 02/10: EF 40-45% -PPM interrogated: sinus tach -trop peak 31>> 8 >> 2.23 -monitor closely for evidence of fluid overload -cont. home amlodipine 10 mg -cont. medical management ASA, lipitor -lopressor 50 BID w/hold parameters -EP, Dr. Corley, following -Cardio, Dr. Crain, following: no indication for cath at this time #Hypernatremia - resolved #Hyponatremia #Unspecified CKD #One Kidney -monitor renal function -FWF per nephro -Nephro following, recs appreciated #anemia #Thrombocytosis -downtrending, likely 2/2 to infectious process -cont. to monitor -no signs of bleeding -s/p 1 U PRBC on 02/16/20 -Heme, Dr. Baum, following, recs appreciated #Hypothyroidism -TSH normal -cont levothyroxine #Decubitus Ulcer -Wound care following, appreciate recs #Dementia #h/o CVA -AOx1 at b/l -supportive care, monitor mentation -fall precautions, aspiration precautions -PT/OT/HAND PROFILER -Frequent orienting -Neurology following: recs appreciated I spent 35 minutes on this patient's case, and >50% was dedicated to counseling and/or care coordination. Subjective Date patient seen: Feb 20, 2020 Time patient seen: 09:40 ROS Limited/Unobtainable: Yes Allergies: Coded Allergies: No Known Allergies (Unverified , 01/30/20) Subjective Follow up for sepsis, Citrobacter bacteremia, pyelonephritis Underwent cystoscopy with left sided ureteral stent placement on 02/17 No acute events overnight. Objective Last 24 Hour Vital Signs Date Time Temp Pulse Resp B/P (MAP) Pulse Ox O2 Delivery O2 Flow Rate FiO2 02/20/20 09:12 98 130/82 02/20/20 09:11 98 130/82 02/20/20 08:00 97.2 98 18 130/82 (98) 100 02/20/20 08:00 98 02/20/20 04:00 97.5 96 18 109/74 (86) 97 02/20/20 03:44 94 02/20/20 00:00 97.5 90 18 107/92 (97) 97 02/19/20 23:31 89 02/19/20 21:00 Room Air 02/19/20 20:38 97.5 110 18 124/71 (88) 97 02/19/20 20:32 110 124/71 02/19/20 19:52 105 02/19/20 16:00 97 02/19/20 16:00 97.5 104 18 149/82 (104) 97 02/19/20 12:00 91 02/19/20 12:00 97.9 94 18 117/71 (86) 97 Intake and Output 02/19/20 02/20/20 19:00 07:00 Intake Total 260 ml 1370 ml Output Total 350 ml 700 ml Balance -90 ml 670 ml Free Water 200 ml 200 ml IV Total 510 ml Tube Feeding 60 ml 660 ml Output Urine Total 350 ml 700 ml # Bowel Movements 2 2 Laboratory Tests 02/20/20 06:19: White Blood Count 11.9H, Red Blood Count 2.99L, Hemoglobin 8.4L, Hematocrit 25.0L, Mean Corpuscular Volume 84, Mean Corpuscular Hemoglobin 28.3, Mean Corpuscular Hemoglobin Concent 33.8, Red Cell Distribution Width 14.3, Platelet Count 308, Mean Platelet Volume 5.9L, Neutrophils (%) (Auto) 81.4H, Lymphocytes (%) (Auto) 5.9L, Monocytes (%) (Auto) 6.1, Eosinophils (%) (Auto) 5.6H, Basophils (%) (Auto) 1.0, Sodium Level 139, Potassium Level 4.2, Chloride Level 106, Carbon Dioxide Level 25, Anion Gap 8, Blood Urea Nitrogen 19H, Creatinine 0.9, Estimat Glomerular Filtration Rate > 60, Glucose Level 107H, Calcium Level 8.2L Height (Feet): 5 Height (Inches): 1.00 Weight (Pounds): 127 General Appearance: no apparent distress, alert, confused Cardiovascular: normal rate, regular rhythm Respiratory/Chest: lungs clear, normal breath sounds Abdomen: non tender, soft Carmine Major MD Feb 20, 2020 11:20
--- NOTE | 2020-02-20 13:42 | Surgery Progress Note ---
Surgery Progress Note Subjective Additional Comments wbc improved 11k stable otherwise no acute events Objective Last 24 Hour Vital Signs Date Time Temp Pulse Resp B/P (MAP) Pulse Ox O2 Delivery O2 Flow Rate FiO2 02/20/20 09:12 98 130/82 02/20/20 09:11 98 130/82 02/20/20 08:00 97.2 98 18 130/82 (98) 100 02/20/20 08:00 98 02/20/20 04:00 97.5 96 18 109/74 (86) 97 02/20/20 03:44 94 02/20/20 00:00 97.5 90 18 107/92 (97) 97 02/19/20 23:31 89 02/19/20 21:00 Room Air 02/19/20 20:38 97.5 110 18 124/71 (88) 97 02/19/20 20:32 110 124/71 02/19/20 19:52 105 02/19/20 16:00 97 02/19/20 16:00 97.5 104 18 149/82 (104) 97 I&O Intake and Output 02/19/20 02/20/20 19:00 07:00 Intake Total 260 ml 1370 ml Output Total 350 ml 700 ml Balance -90 ml 670 ml Free Water 200 ml 200 ml IV Total 510 ml Tube Feeding 60 ml 660 ml Output Urine Total 350 ml 700 ml # Bowel Movements 2 2 Dressing: other Wound: other Drains: other Cardiovascular: RSR Respiratory: decreased breath sounds Abdomen: soft, non-tender, present bowel sounds Extremities: no cyanosis Laboratory Tests Test 02/20/20 06:19 White Blood Count 11.9 K/UL (4.8-10.8) H Red Blood Count 2.99 M/UL (4.20-5.40) L Hemoglobin 8.4 G/DL (12.0-16.0) L Hematocrit 25.0 % (37.0-47.0) L Mean Corpuscular Volume 84 FL (80-99) Mean Corpuscular Hemoglobin 28.3 PG (27.0-31.0) Mean Corpuscular Hemoglobin Concent 33.8 G/DL (32.0-36.0) Red Cell Distribution Width 14.3 % (11.6-14.8) Platelet Count 308 K/UL (150-450) Mean Platelet Volume 5.9 FL (6.5-10.1) L Neutrophils (%) (Auto) 81.4 % (45.0-75.0) H Lymphocytes (%) (Auto) 5.9 % (20.0-45.0) L Monocytes (%) (Auto) 6.1 % (1.0-10.0) Eosinophils (%) (Auto) 5.6 % (0.0-3.0) H Basophils (%) (Auto) 1.0 % (0.0-2.0) Sodium Level 139 MMOL/L (136-145) Potassium Level 4.2 MMOL/L (3.5-5.1) Chloride Level 106 MMOL/L (98-107) Carbon Dioxide Level 25 MMOL/L (21-32) Anion Gap 8 mmol/L (5-15) Blood Urea Nitrogen 19 mg/dL (7-18) H Creatinine 0.9 MG/DL (0.55-1.30) Estimat Glomerular Filtration Rate > 60 mL/min (>60) Glucose Level 107 MG/DL (74-106) H Calcium Level 8.2 MG/DL (8.5-10.1) L Plan Problems: (1) Septic shock Assessment & Plan: Patient presented to emergency department with sepsis hypotension tachycardia lactic acidosis leukocytosis. On IV antibiotics Labs improving IV hydration Continue tube feeds advance goal as tolerated Abdominal exam does elicit patient to retract a bit but she is not tender peritonitis or without rebound or significant guarding. exam improved Likely startle effect rather than intra-abdominal pathology will follow with serial exams continue with current care plan thank you for let me participate in patient's care leukocytosis. c diff negative. blood cultures noted abx as per ID Severe left hydronephrosis versus parapelvic cysts. No definite obstructing stone. Mild bladder wall thickening with small gas foci in the bladder, concerning for cystitis. Please correlate with urinalysis. Acute NSTEMI with peak troponin 31 as per cardiology wbc fever micro worsening leukocytosis improving labs improved downgraded exam stable labs ordered -Small bilateral pleural effusions with passive atelectasis and lung base motion artifact. -Pacer device leads in the heart. -Tovar catheter in the decompressed urinary bladder. - No urolithiasis seen. -Consider left renal collecting system infection/UTI/pyelonephritis in the proper context given moderate left perinephric stranding which is asymmetric compared with the right. -Similar to prior study left inferior renal moiety moderate hydronephrosis without visualized cause. 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 -If there is further desire to evaluate collecting system dilation, consider repeating the study with CT hematuria protocol. -Sacral decubitus ulcer, correlate with presentation. - Rapid transit of contrast through the GI tract could be incidental or could be seen with an infectious or inflammatory enteritis. -Indeterminate left adrenal 2.1 cm enhancing nodule, if felt to alter clinical management consider additional evaluation adrenal gland. CONSIDER correlation with prior imaging studies. -Right renal cortical scarring due to old infectious or ischemic insults. -Atherosclerotic vascular disease. - Hysterectomy. -Unchanged osteopenia and degenerative spine findings. Unchanged old right possible lesser trochanter fracture versus extensive right hip capsular calcifications. 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 The lower pole collecting system is markedly hydronephrotic. The upper pole collecting system is normal in appearance. There is inflammatory change surrounding the lower pole of the left kidney, with some fluid tracking caudad along Gerota's fascia. There is either a cyst or dilated calyx in the left lower pole, suspect the latter as this appears to communicate with the collecting system along the anterior border of the kidney, best visualized on the sagittal reconstructed images. No obstructing stone or mass is demonstrated. There is no hydroureter. The upper pole collecting system is nondilated. There is probably only a single left ureter, but this cannot be stated for certain. The right kidney demonstrates subcentimeter low-attenuation lesions which are too small to characterize, most likely benign simple cysts. There is a Tovar catheter within the bladder, which contains some gas presumably related to the Tovar catheterization. There are retrococcygeal decubitus changes and suspicion for some ulceration. This is more evident than on the prior exam. No definite osseous destruction. The liver, gallbladder, bile ducts, pancreas, spleen, adrenals are unremarkable. No retroperitoneal or mesenteric mass or adenopathy. No pelvic mass or adenopathy. The uterus is absent. Ingested contrast has reached the distal colon, and there is some evidence of rectal fecal incontinence. No evidence of colonic diverticulosis or diverticulitis. The appendix is normal. No small bowel distention. No small bowel wall thickening. There is a small amount of free pelvic fluid. Distal esophagus is unremarkable. The stomach contains a gastrostomy which appears to be well positioned. Fairly extensive chronic degenerative changes are seen about both hips. There is some infiltration of the subcutaneous fat in the bilateral neck regions which is nonspecific. There are degenerative changes of the lumbar spine Included lung bases demonstrate small bilateral pleural effusions. Hazy parenchymal disease is seen in the bilateral lower lobes. 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 Inflammatory change is seen surrounding the lower pole left kidney. This is new since the prior exam, could inflammation secondary to acute obstruction versus infection, suspect the latter. Etiology of obstruction not demonstrated, could a congenital ureteropelvic junction obstruction Retrococcygeal decubitus changes and possibly ulceration. Correlate with clinical findings Bilateral pleural effusions. This is new since the previous study. 1.6 cm left adrenal mass, much more clearly demonstrated on the previous exam. Consider follow-up with adrenal protocol CT if this would affect management Gastrostomy, Tovar catheter, pacemaker incidentally noted Evidence of prior hysterectomy Incidental findings of degenerative disc disease, bilateral hip degenerative changes (2) Decubitus skin ulcer Assessment & Plan: 84-year-old female presented on admission with multiple decubitus skin ulcers and skin concerns. Patient identified to have a unstageable sacral lower back decubitus ulcer, periwound maceration, area of necrotic eschar soft, no drainage, no abscess, no foul odor Pt presented on admission with contractures, Multiple Pressure injuries.open DTPI sacrum.Wound is open at sacrococcygeal area(40%), with soft necrotic base ( L)5.5cm x (W)4.5cm. Surrounding base of wound is maroon and indurated. Total area of sacral DTPI measures(L) 12.5cm x (W)15cm. Non-blanching erythema periwound.In addition several small partial thickness wounds noted along Perineum.` Areas of hyperpigmentation noted to L and R trochanteric. Full thickness wound R knee.(L)1.1cm x (W)1.5cm.1 Base of wound 90% pink granulation,10% slough noted in center of wound. Borders are macerated.small amt serous exudate. No odor noted. No erythema or fluctuance noted periwound. Non-blanching erythema with fluctuance R heel. Unstageable pressure injury R hallux. Base of wound is 100% soft necrosis. Edges adherent and dry.No odor or exudate noted.Surrounding darker skin tone without erythema or fluctuance(L)2.6cm x (W)3cm. DTPI R Ankle(L)0.9cm x (W)1.6cm. Base of wound is fluctuant, maroon with marginal erythema. Periwound without erythema or fluctuance. Unstageable pressure injury distal/lateral R foot. Base of wound 100% soft necrosis with surrounding non-blanching erythema with fluctuance.(L)2cm x (W) 0.9cm. Stable dry eschar medial/lateral R foot (L)0.4cm x (W)0.8cm. Stable dry eschar lateral L heel.(L)1.9cm x (W)2.2cm. No erythema or fluctuance periwound. Unstable pressure injury medial/lateral L foot. Base of wound is 100% necrotic but dry.(L)0.7cm x (W)0.8cm. Unstageable pressure injury distal/lateral L foot. Base of wound is 100% necrotic but dry. (L)1.2cm x (W)1.6cm.non-blanching erythema without fluctuance periwound. Non-blanching erythema without fluctuance lateral L 5th metatarsal.(L)1.5cm x (W )0.5cm. Open DTPI L Hallux.Base of wound has mixed necrosis and slough with surrounding base of wound maroon with fluctuance. Non-blanching erythema without elevation in skin temp,or fluctuance periwound. Tx.plan: Cleanse Sacral wound with Saline. Apply TheraHoney. Apply Moisture Barrier Paste Periwound. Cover with Optifoam drsg. Change Daily and prn. Swab R nee with Betadine. Cover with Optifoam drsg every 3 days and prn. Swab wounds R foot with Betadine. Cover each wound with Optifoam drsg. Change every 3 days and prn. Swab wounds L foot with Betadine. Cover each wound with Optifoam drsg. Change every 3 days and prn. Reposition at least every 2hours or as tolerated. Place pillow between knees. Off-load heels with Pillow. APM/ARIEL Mattress. DAILY ESTIMATED NEEDS: Needs based on Wounds, underweight 50kg 30-35 kcals/kg 7764-8560 total kcals 1.25-2 g protein/kg 63-100 g total protein 25-30 mL/kg [id number] total fluid mLs NUTRITION DIAGNOSIS: Increased kcal and pro needs r/t underweight status and wound healing as evidenced by pt @85% [address] Body Weight w/ multiple wounds, eval pending, pt is PEG dep. CURRENT TF:Glucerna 1.5 @60ml x20 hrs ENTERAL NUTRITION RECOMMENDATIONS: Maintain current TF as tolerated: Glucerna 1.5 @60ml/hr x20 hrs to provide 1200ml, 1800 kcal, 99g pro, 911ml free H2o -> Monitor for hypoglycemia and need to change to non carb control formula -> Flush per MD. HOB over 30 degrees ADDITIONAL RECOMMENDATIONS: 1) On iso, per SNF pt is: 65 inches + 110#/50kg 2) Wound care: add MATT in 4oz H2O BID via GT F/up w/ WC eval 3) Maintain calibrated bed scale wts 4) Monitor for continued hypoglycemic events, need for D5 or TF change Luther Mercedes Feb 20, 2020 13:42
--- NOTE | 2020-02-20 13:42 | Cardiac Electrophysiology PN ---
Assessment/Plan Assessment/Plan 1. Status post right-sided [facility] DDD pacer implantation with Nl Fx by Interrogation Continue Lopressor 50 bid. 2. Acute NSTEMI with peak troponin 31. Down to 2. Non verbal. Continue aspirin, Lopressor and Lipitor. Echo on 02/11/20 EF 40-45% 3. Diabetes. 4. Hypertension, on Toprol 50 bid and Norvasc 10 daily 5. Status post septic shock with WBC 27 K. On iv Abx per Dr. Naylor Now WBC 11 K 6. Severe anemia. Hemoglobin improved from 7.5 to 9.4. 7. Dementia. 8. CVA. 10. COPD. 11. ARF and hydronephrosis, Cr now normal. S/P ureteral stent placement on 02/18/20 12. S/P PEG placement. LAKIA RN Subjective Subjective Nonverbal but responsive in NAD. V pacing at around 90s S/P ureteral stent placement by Dr Leos on 02/18/20. Objective Last 24 Hour Vital Signs Date Time Temp Pulse Resp B/P (MAP) Pulse Ox O2 Delivery O2 Flow Rate FiO2 02/20/20 09:12 98 130/82 02/20/20 09:11 98 130/82 02/20/20 08:00 97.2 98 18 130/82 (98) 100 02/20/20 08:00 98 02/20/20 04:00 97.5 96 18 109/74 (86) 97 02/20/20 03:44 94 02/20/20 00:00 97.5 90 18 107/92 (97) 97 02/19/20 23:31 89 02/19/20 21:00 Room Air 02/19/20 20:38 97.5 110 18 124/71 (88) 97 02/19/20 20:32 110 124/71 02/19/20 19:52 105 02/19/20 16:00 97 02/19/20 16:00 97.5 104 18 149/82 (104) 97 Intake and Output 02/19/20 02/20/20 19:00 07:00 Intake Total 260 ml 1370 ml Output Total 350 ml 700 ml Balance -90 ml 670 ml Free Water 200 ml 200 ml IV Total 510 ml Tube Feeding 60 ml 660 ml Output Urine Total 350 ml 700 ml # Bowel Movements 2 2 Laboratory Tests Test 02/20/20 06:19 White Blood Count 11.9 K/UL (4.8-10.8) H Red Blood Count 2.99 M/UL (4.20-5.40) L Hemoglobin 8.4 G/DL (12.0-16.0) L Hematocrit 25.0 % (37.0-47.0) L Mean Corpuscular Volume 84 FL (80-99) Mean Corpuscular Hemoglobin 28.3 PG (27.0-31.0) Mean Corpuscular Hemoglobin Concent 33.8 G/DL (32.0-36.0) Red Cell Distribution Width 14.3 % (11.6-14.8) Platelet Count 308 K/UL (150-450) Mean Platelet Volume 5.9 FL (6.5-10.1) L Neutrophils (%) (Auto) 81.4 % (45.0-75.0) H Lymphocytes (%) (Auto) 5.9 % (20.0-45.0) L Monocytes (%) (Auto) 6.1 % (1.0-10.0) Eosinophils (%) (Auto) 5.6 % (0.0-3.0) H Basophils (%) (Auto) 1.0 % (0.0-2.0) Sodium Level 139 MMOL/L (136-145) Potassium Level 4.2 MMOL/L (3.5-5.1) Chloride Level 106 MMOL/L (98-107) Carbon Dioxide Level 25 MMOL/L (21-32) Anion Gap 8 mmol/L (5-15) Blood Urea Nitrogen 19 mg/dL (7-18) H Creatinine 0.9 MG/DL (0.55-1.30) Estimat Glomerular Filtration Rate > 60 mL/min (>60) Glucose Level 107 MG/DL (74-106) H Calcium Level 8.2 MG/DL (8.5-10.1) L Microbiology Date/Time Source Procedure Growth Status 02/18/20 14:51 Urine,Ureter/Kidney Urine Culture - Preliminary NO GROWTH AFTER 24 HOURS Resulted Objective HEAD AND NECK: Shows no JVD. LUNGS: Coarse rhonchi. CARDIOVASCULAR: Regular S1 and S2. Pacemaker is in the right subclavian. ABDOMEN: Soft.PEG in place. Has john EXTREMITIES: Contracted. Oscar Corley MD Feb 20, 2020 13:42
--- NOTE | 2020-02-20 17:20 | Infectious Diseases Prog Note ---
Assessment/Plan Assessment/Plan A) 1) citrobacter bacteremia, vre/enterococcus uti with enterococcus/vre bacteremia , source, sepsis, leukocytosis fungemia risk - f/u CT noted, c/w hydronephrosis and pyelonephritis - s/p stent placement - c.diff. - negative - leukocytosis slowly better 2) covid testing - negative 3) dm, hyperlipidemia, ? htn, hypothyroidism, cva, anemia, hemiplegia, ckd, gerd , copd, chf, ppm 4) allergies - nkda, fh-nc, sh-negative, mar noted, notes and records noted 5) d/w RN P) 1) rocephin, diflucan and zyvox x 5 days 2) monitor labs 3) s/p stent 4) leukocytosis better 5) will f/u Subjective Constitutional: Reports: fatigue; Denies: fever HEENT: Denies: congestion Respiratory: Denies: shortness of breath Cardiovascular: Denies: chest pain Gastrointestinal/Abdominal: Denies: nausea, vomiting, diarrhea Genitourinary: Reports: other - + john Neurologic: Denies: headache Psychiatric: Denies: depression Skin: Denies: rash Hematologic: Denies: bleeding Musculoskeletal: Denies: pain Allergies: Coded Allergies: No Known Allergies (Unverified , 01/30/20) Objective Vital Signs Last 24 Hour Vital Signs Date Time Temp Pulse Resp B/P (MAP) Pulse Ox O2 Delivery O2 Flow Rate FiO2 02/20/20 09:12 98 130/82 02/20/20 09:11 98 130/82 02/20/20 09:00 Room Air 02/20/20 08:00 97.2 98 18 130/82 (98) 100 02/20/20 08:00 98 02/20/20 04:00 97.5 96 18 109/74 (86) 97 02/20/20 03:44 94 02/20/20 00:00 97.5 90 18 107/92 (97) 97 02/19/20 23:31 89 02/19/20 21:00 Room Air 02/19/20 20:38 97.5 110 18 124/71 (88) 97 02/19/20 20:32 110 124/71 02/19/20 19:52 105 Height (Feet): 5 Height (Inches): 1.00 Weight (Pounds): 127 General Appearance: no acute distress HEENT: normocephalic, atraumatic, anicteric, mucous membranes moist Respiratory/Chest: lungs clear, normal breath sounds, no respiratory distress, no accessory muscle use Cardiovascular: normal rate, regular rhythm, no gallop/murmur, no JVD Abdomen: normal bowel sounds, soft, non tender, no organomegaly, non distended , tender - no john Genitourinary: other Extremities: no cyanosis Skin: no rash 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 The heart size is normal. There is a right chest biventricular pacemaker Impression: No acute process CT abdomen and pelvis: IMPRESSION: 1. Examination is limited by motion artifact. 2. Trace left pleural effusion. 3. Severe left hydronephrosis versus parapelvic cysts. No definite obstructing stone. 4. Mild bladder wall thickening with small gas foci in the bladder, concerning for cystitis. Please correlate with urinalysis. CT ABDOMEN + PELVIS With Contrast: Prior 02/09/2020 Impression -Small bilateral pleural effusions with passive atelectasis and lung base motion artifact. -Pacer device leads in the heart. -John catheter in the decompressed urinary bladder. - No urolithiasis seen. -Consider left renal collecting system infection/UTI/pyelonephritis in the proper context given moderate left perinephric stranding which is asymmetric compared with the right. -Similar to prior study left inferior renal moiety moderate hydronephrosis without visualized cause. 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 -If there is further desire to evaluate collecting system dilation, consider repeating the study with CT hematuria protocol. -Sacral decubitus ulcer, correlate with presentation. - Rapid transit of contrast through the GI tract could be incidental or could be seen with an infectious or inflammatory enteritis. -Indeterminate left adrenal 2.1 cm enhancing nodule, if felt to alter clinical management consider additional evaluation adrenal gland. CONSIDER correlation with prior imaging studies. -Right renal cortical scarring due to old infectious or ischemic insults. -Atherosclerotic vascular disease. - Hysterectomy. -Unchanged osteopenia and degenerative spine findings. Unchanged old right possible lesser trochanter fracture versus extensive right hip capsular calcifications. Procedure: XRAY Chest 1v - 02/15/20- Indication: Dyspnea Comparison: 02/11/2020 A single view chest radiograph was obtained. Findings: No definite infiltrate or pulmonary vascular congestion identified. The heart is enlarged. The aorta is mildly enlarged consistent with atherosclerotic vascular disease. The bones are osteopenic. There are thoracic vertebral enthesophytes at multiple levels. Pacemaker noted on the right. Impression: No acute disease Microbiology Date/Time Source Procedure Growth Status 02/14/20 21:00 Blood Blood Culture - Final Enterococcus Faecium - Vre Complete 01/30/20 15:45 Nasal Nares MRSA Culture - Final NO METHICILLIN RESISTANT STAPH AUREUS... Complete 02/15/20 06:00 Stool Clostridium difficile Toxin Assay - Final Complete 02/18/20 14:51 Urine,Ureter/Kidney Urine Culture - Preliminary NO GROWTH AFTER 24 HOURS Resulted 01/30/20 15:45 Rectum VRE Culture - Final NO VANCOMYCIN RESISTANT ENTEROCOCCUS ... Complete Microbiology Date/Time Source Procedure Growth Status 02/18/20 14:51 Urine,Ureter/Kidney Urine Culture - Preliminary NO GROWTH AFTER 24 HOURS Resulted Laboratory Tests Test 02/20/20 06:19 White Blood Count 11.9 K/UL (4.8-10.8) H Red Blood Count 2.99 M/UL (4.20-5.40) L Hemoglobin 8.4 G/DL (12.0-16.0) L Hematocrit 25.0 % (37.0-47.0) L Mean Corpuscular Volume 84 FL (80-99) Mean Corpuscular Hemoglobin 28.3 PG (27.0-31.0) Mean Corpuscular Hemoglobin Concent 33.8 G/DL (32.0-36.0) Red Cell Distribution Width 14.3 % (11.6-14.8) Platelet Count 308 K/UL (150-450) Mean Platelet Volume 5.9 FL (6.5-10.1) L Neutrophils (%) (Auto) 81.4 % (45.0-75.0) H Lymphocytes (%) (Auto) 5.9 % (20.0-45.0) L Monocytes (%) (Auto) 6.1 % (1.0-10.0) Eosinophils (%) (Auto) 5.6 % (0.0-3.0) H Basophils (%) (Auto) 1.0 % (0.0-2.0) Sodium Level 139 MMOL/L (136-145) Potassium Level 4.2 MMOL/L (3.5-5.1) Chloride Level 106 MMOL/L (98-107) Carbon Dioxide Level 25 MMOL/L (21-32) Anion Gap 8 mmol/L (5-15) Blood Urea Nitrogen 19 mg/dL (7-18) H Creatinine 0.9 MG/DL (0.55-1.30) Estimat Glomerular Filtration Rate > 60 mL/min (>60) Glucose Level 107 MG/DL (74-106) H Calcium Level 8.2 MG/DL (8.5-10.1) L Current Medications Medications (Trade) Dose Ordered Sig/Moreno Route PRN Reason Start Time Stop Time Status Last Admin Dose Admin Acetaminophen (Tylenol) 650 mg Q4H PRN GT Mild Pain/Temp > 100.5 02/09/20 14:30 03/08/20 10:29 02/10/20 22:07 Amlodipine Besylate (Norvasc) 10 mg DAILY ORAL 02/16/20 09:00 03/17/20 08:59 02/20/20 09:11 Aspirin (ASA) 81 mg DAILY GT 02/11/20 09:00 03/27/20 08:59 02/20/20 09:11 Atorvastatin Calcium (Lipitor) 40 mg BEDTIME ORAL 02/09/20 21:00 04/29/20 20:59 02/19/20 20:32 Dextrose (Dextrose 50%) 25 ml Q30M PRN IV Hypoglycemia 02/09/20 14:30 04/29/20 18:59 Dextrose (Dextrose 50%) 50 ml Q30M PRN IV Hypoglycemia 02/09/20 14:30 04/29/20 18:59 Diphenhydramine HCl (Benadryl) 25 mg Q6H PRN ORAL Itching/Pruritis 02/09/20 15:00 03/10/20 14:59 Diphenoxylate HCl/ Atropine (Lomotil) 2.5 mg Q4H PRN GT Diarrhea 02/09/20 15:00 03/08/20 14:59 Fluconazole/ Sodium Chloride 100 ml @ 100 mls/hr Q24H IV 02/14/20 22:00 02/21/20 21:59 02/19/20 22:12 Levothyroxine Sodium (Synthroid) 25 mcg DAILY@0630 ORAL 02/10/20 06:30 03/01/20 06:29 02/20/20 05:56 Linezolid 300 ml @ 300 mls/hr EVERY 12 HOURS IVPB 02/14/20 19:30 02/21/20 19:29 02/20/20 09:11 Loperamide HCl (Imodium) 2 mg Q3H PRN NG Diarrhea 02/10/20 12:45 03/11/20 12:44 02/18/20 06:32 Meropenem 1 gm/ Sodium Chloride 55 ml @ 110 mls/hr Q12H IVPB 02/19/20 02:00 02/24/20 01:59 02/20/20 14:00 Metoprolol Tartrate (Lopressor) 50 mg Q12HR GT 02/17/20 21:00 05/13/20 08:59 02/20/20 09:12 Ondansetron HCl (Zofran) 4 mg Q6H PRN IVP Nausea & Vomiting 02/09/20 15:00 02/29/20 14:59 Abiodun Jacobo MD Feb 20, 2020 17:20
[2020-02-20] MEDS ORDERED: Acetaminophen 650mg/20.3ml GT PRN (17:24)
[2020-02-20] MEDS ORDERED: DiphenhydrAMINE 25mg Tab ORAL PRN (17:27)
[2020-02-20] MEDS ORDERED: Lomotil 2.5mg tab GT PRN (17:28)
[2020-02-20 20:00] VITALS: BP 121/67
[2020-02-20] MEDS: Atorvastatin 20mg tab ORAL SCH (20:34)
[2020-02-20] MEDS: cefTRIAXone 1 GM in D5W 50 ML IVPB SCH (20:44)
[2020-02-20 23:18] VITALS: BP 128/68
[2020-02-21] MEDS ORDERED: Meropenem 1 GM in NS 55 ML IVPB SCH (02:00)
[2020-02-21 04:00] VITALS: BP 131/76
[2020-02-21] MEDS: Levothyroxine 25mcg tab ORAL SCH (05:44)
[2020-02-21 06:11] LABS: HEMATOCRIT 33.4 % (37.0-47.0); HEMOGLOBIN 11.2 G/DL (12.0-16.0); MEAN CORPUSCULAR VOLUME 83 FL (80-99); PLATELET COUNT 423 K/UL (150-450); RED BLOOD COUNT 4.02 M/UL (4.20-5.40); RED CELL DISTRIBUTION WIDTH 14.4 % (11.6-14.8); WHITE BLOOD COUNT 17.4 K/UL (4.8-10.8)
[2020-02-21 06:34] LABS: ALANINE AMINOTRANSFERASE 21 U/L (12-78); ALBUMIN 1.5 G/DL (3.4-5.0); ALBUMIN/GLOBULIN RATIO 0.3 (1.0-2.7); ALKALINE PHOSPHATASE 152 U/L (46-116); ANION GAP 10 mmol/L (5-15); ASPARTATE AMINO TRANSFERASE 28 U/L (15-37); BILIRUBIN,TOTAL 0.2 MG/DL (0.2-1.0); BLOOD UREA NITROGEN 19 mg/dL (7-18); CALCIUM 8.7 MG/DL (8.5-10.1); CARBON DIOXIDE 28 MMOL/L (21-32); CHLORIDE 103 MMOL/L (98-107); CREATININE 0.8 MG/DL (0.55-1.30); POTASSIUM 4.1 MMOL/L (3.5-5.1); SODIUM 140 MMOL/L (136-145)
[2020-02-21 08:00] VITALS: BP 155/82
--- NOTE | 2020-02-21 08:42 | Urology Progress Note ---
Assessment/Plan Status: stable Assessment/Plan: 1. Left-sided hydronephrosis. 2. Urinary retention. 3. Neurogenic bladder. 4. Proteinuria. 5. Hematuria. 6. Pyuria. 7. Sepsis history. 8. Cystitis. 9. likely renal cyst. 10. POD # 3, left ureteral stent monitor clinically john indwelling hand irrigated and do PRN monitor renal fxn and WBC, fluctuating on abx, per ID voiding trial later hydro likely chronic, no stones, likely UPJ obst stent placed d/w primary service Subjective Allergies: Coded Allergies: No Known Allergies (Unverified , 01/30/20) Subjective all noted, more alert Objective Last 24 Hour Vital Signs Date Time Temp Pulse Resp B/P (MAP) Pulse Ox O2 Delivery O2 Flow Rate FiO2 02/21/20 08:00 97.9 109 20 155/82 (106) 96 02/21/20 04:00 98.6 96 20 131/76 (94) 93 02/20/20 23:18 98.9 94 20 128/68 (88) 94 02/20/20 21:00 Room Air 02/20/20 20:34 100 121/67 02/20/20 20:00 98.4 100 20 121/67 (85) 100 02/20/20 16:00 97 02/20/20 12:00 93 02/20/20 09:12 98 130/82 02/20/20 09:11 98 130/82 02/20/20 09:00 Room Air Intake and Output 02/20/20 02/21/20 19:00 07:00 Intake Total 890 ml 800 ml Output Total 1000 ml 1000 ml Balance -110 ml -200 ml Free Water 230 ml 200 ml Tube Feeding 660 ml 600 ml Output Urine Total 1000 ml 1000 ml # Bowel Movements 2 2 Microbiology Date/Time Source Procedure Growth Status 02/14/20 21:00 Blood Blood Culture - Final Enterococcus Faecium - Vre Complete 01/30/20 15:45 Nasal Nares MRSA Culture - Final NO METHICILLIN RESISTANT STAPH AUREUS... Complete 02/15/20 06:00 Stool Clostridium difficile Toxin Assay - Final Complete 02/18/20 14:51 Urine,Ureter/Kidney Urine Culture - Final NO GROWTH AFTER 48 HOURS Complete 01/30/20 15:45 Rectum VRE Culture - Final NO VANCOMYCIN RESISTANT ENTEROCOCCUS ... Complete Current Medications Medications (Trade) Dose Ordered Sig/Moreno Route PRN Reason Start Time Stop Time Status Last Admin Dose Admin Acetaminophen (Tylenol) 650 mg Q4H PRN GT MILD/TEMP 02/20/20 17:24 03/08/20 17:23 Amlodipine Besylate (Norvasc) 10 mg DAILY ORAL 02/21/20 09:00 03/17/20 08:59 Aspirin (ASA) 81 mg DAILY GT 02/21/20 09:00 03/27/20 08:59 Atorvastatin Calcium (Lipitor) 40 mg BEDTIME ORAL 02/20/20 21:00 04/29/20 20:59 02/20/20 20:34 Ceftriaxone Sodium 1 gm/ Dextrose 50 ml @ 100 mls/hr Q24H IVPB 02/20/20 17:30 02/27/20 17:29 02/20/20 20:44 Dextrose (Dextrose 50%) 25 ml Q30M PRN IV Hypoglycemia 02/20/20 17:30 04/29/20 18:59 Dextrose (Dextrose 50%) 50 ml Q30M PRN IV Hypoglycemia 02/20/20 17:30 04/29/20 18:59 Diphenhydramine HCl (Benadryl) 25 mg Q6H PRN ORAL Itching/Pruritis 02/20/20 17:27 03/10/20 17:26 Diphenoxylate HCl/ Atropine (Lomotil) 2.5 mg Q4H PRN GT Diarrhea 02/20/20 17:28 03/08/20 17:27 Fluconazole (Diflucan) 200 mg DAILY ORAL 02/21/20 09:00 02/28/20 08:59 Levothyroxine Sodium (Synthroid) 25 mcg DAILY@0630 ORAL 02/21/20 06:30 03/01/20 06:29 02/21/20 05:44 Linezolid (Zyvox) 600 mg EVERY 12 HOURS ORAL 02/20/20 21:00 02/25/20 20:59 02/20/20 20:34 Loperamide HCl (Imodium) 2 mg Q3H PRN NG Diarrhea 02/20/20 18:45 03/11/20 12:44 Metoprolol Tartrate (Lopressor) 50 mg Q12HR GT 02/20/20 21:00 05/13/20 08:59 02/20/20 20:34 Ondansetron HCl (Zofran) 4 mg Q6H PRN IVP Nausea & Vomiting 02/20/20 21:00 02/29/20 14:59 Laboratory Tests 02/21/20 05:45: White Blood Count 17.4H, Red Blood Count 4.02L, Hemoglobin 11.2#L, Hematocrit 33.4#L, Mean Corpuscular Volume 83, Mean Corpuscular Hemoglobin 27.8, Mean Corpuscular Hemoglobin Concent 33.4, Red Cell Distribution Width 14.4, Platelet Count 423, Mean Platelet Volume 5.8L, Neutrophils (%) (Auto) , Lymphocytes (%) ( Auto) , Monocytes (%) (Auto) , Eosinophils (%) (Auto) , Basophils (%) (Auto) , Neutrophils % (Manual) [Pending], Lymphocytes % (Manual) [Pending], Platelet Estimate [Pending], Platelet Morphology [Pending], Erythrocyte Sedimentation Rate 98H, Sodium Level 140, Potassium Level 4.1, Chloride Level 103, Carbon Dioxide Level 28, Anion Gap 10, Blood Urea Nitrogen 19H, Creatinine 0.8, Estimat Glomerular Filtration Rate > 60, Glucose Level 129H, Calcium Level 8.7, Total Bilirubin 0.2, Aspartate Amino Transf (AST/SGOT) 28, Alanine Aminotransferase (ALT/SGPT) 21, Alkaline Phosphatase 152H, C-Reactive Protein, Quantitative 10.6H, Total Protein 7.2, Albumin 1.5L, Globulin 5.7, Albumin/ Globulin Ratio 0.3L Height (Feet): 5 Height (Inches): 1.00 Weight (Pounds): 127 Objective exam stable john indwelling, evangelina urine with some debris renal u/s (02/11) noted CT A/P with IV contrast (02/14) noted Timothy Leos MD Feb 21, 2020 08:42
[2020-02-21] MEDS: Aspirin Baby 81mg GT SCH (09:10)
[2020-02-21] MEDS: Metoprolol Tartrate 50mg tab GT SCH ×2 (09:10→22:20)
[2020-02-21] MEDS: Fluconazole 100mg tab ORAL SCH (09:10)
--- NOTE | 2020-02-21 10:09 | Hematology/Onc Progress Note ---
Assessment/Plan Assessment/Plan Assessment and Recs: # Leukocytosis likely due to sepsi and citrobacter bacteremia, vre/enterococcus uti, fungemia risk --> imaging has since been reviewed --> peripheral smear is negative --> abx as per id: meropenem/linezolid --> flow cytometry if doesn't improve by next week --> c diff and covid 19 negative --> wbc trend: 21.9-->21.9-->14.8 ->12->17 # Anemia likely due to iron deficiency --> ferritin is ordered, other anemia panel reviewed --> hgb trend 8.6-->8.8-->9.3 -->9-->8.9-->8.4-->11 --> hgb goal greater than 7, transfuse as needed --> no evidence of hemolysis is noted --> prbc: 1 unit 02/16/2020 # hypernatremia due to free water deficit of close to 3L-improved --> per renal --> on ivfs # 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 Subjective Constitutional: Denies: no symptoms, chills, fever, malaise, weakness, other HEENT: Denies: no symptoms, eye pain, blurred vision, tearing, double vision, ear pain, ear discharge, nose pain, nose congestion, throat pain, throat swelling, mouth pain, mouth swelling, other Respiratory: Denies: no symptoms, cough, shortness of breath, SOB with excertion, SOB at rest, sputum, wheezing, other Gastrointestinal/Abdominal: Denies: no symptoms, abdomen distended, abdominal pain, black stools, tarry stools, blood in stool, constipated, diarrhea, difficulty swallowing, nausea, poor appetite, poor fluid intake, rectal bleeding , vomiting, other Genitourinary: Denies: no symptoms, burning, discharge, frequency, flank pain, hematuria, incontinence, pain, urgency, other Neurologic/Psychiatric: Denies: no symptoms, anxiety, depressed, emotional problems, headache, numbness, paresthesia, pre-existing deficit, seizure, tingling, tremors, weakness, other Endocrine: Denies: no symptoms, excessive sweating, flushing, intolerance to cold, intolerance to heat, increased hunger, increased thirst, increased urine, unexplained weight gain, unexplained weight loss, other Allergies: Coded Allergies: No Known Allergies (Unverified , 01/30/20) Subjective 02/16 s/p 1 unit rbc, hgb 9.3, on iv iron, covid 19 negative 02/17 no events, this am, right sided weakness, labs are noted, reviewed, dw gi 02/18 s/p cysto, stool ob negative, labs reviewed, on room air 02/19 remains same, labs noted, nonverbal, unable to do ros hgb 8.4 02/20 no events, no bleeding, no chills, no labs, no night sweats Objective Objective Current Medications Medications (Trade) Dose Ordered Sig/Moreno Route PRN Reason Start Time Stop Time Status Last Admin Dose Admin Acetaminophen (Tylenol) 650 mg Q4H PRN GT MILD/TEMP 02/20/20 17:24 03/08/20 17:23 Amlodipine Besylate (Norvasc) 10 mg DAILY ORAL 02/21/20 09:00 03/17/20 08:59 02/21/20 09:11 Aspirin (ASA) 81 mg DAILY GT 02/21/20 09:00 03/27/20 08:59 02/21/20 09:10 Atorvastatin Calcium (Lipitor) 40 mg BEDTIME ORAL 02/20/20 21:00 04/29/20 20:59 02/20/20 20:34 Ceftriaxone Sodium 1 gm/ Dextrose 50 ml @ 100 mls/hr Q24H IVPB 02/20/20 17:30 02/27/20 17:29 02/20/20 20:44 Dextrose (Dextrose 50%) 25 ml Q30M PRN IV Hypoglycemia 02/20/20 17:30 04/29/20 18:59 Dextrose (Dextrose 50%) 50 ml Q30M PRN IV Hypoglycemia 02/20/20 17:30 04/29/20 18:59 Diphenhydramine HCl (Benadryl) 25 mg Q6H PRN ORAL Itching/Pruritis 02/20/20 17:27 03/10/20 17:26 Diphenoxylate HCl/ Atropine (Lomotil) 2.5 mg Q4H PRN GT Diarrhea 02/20/20 17:28 03/08/20 17:27 Fluconazole (Diflucan) 200 mg DAILY ORAL 02/21/20 09:00 02/28/20 08:59 02/21/20 09:10 Levothyroxine Sodium (Synthroid) 25 mcg DAILY@0630 ORAL 02/21/20 06:30 03/01/20 06:29 02/21/20 05:44 Linezolid (Zyvox) 600 mg EVERY 12 HOURS ORAL 02/20/20 21:00 02/25/20 20:59 02/21/20 09:10 Loperamide HCl (Imodium) 2 mg Q3H PRN NG Diarrhea 02/20/20 18:45 03/11/20 12:44 Metoprolol Tartrate (Lopressor) 50 mg Q12HR GT 02/20/20 21:00 05/13/20 08:59 02/21/20 09:10 Ondansetron HCl (Zofran) 4 mg Q6H PRN IVP Nausea & Vomiting 02/20/20 21:00 02/29/20 14:59 Last 24 Hour Vital Signs Date Time Temp Pulse Resp B/P (MAP) Pulse Ox O2 Delivery O2 Flow Rate FiO2 02/21/20 09:11 109 155/82 02/21/20 09:10 109 155/82 02/21/20 08:00 97.9 109 20 155/82 (106) 96 02/21/20 04:00 98.6 96 20 131/76 (94) 93 02/20/20 23:18 98.9 94 20 128/68 (88) 94 02/20/20 21:00 Room Air 02/20/20 20:34 100 121/67 02/20/20 20:00 98.4 100 20 121/67 (85) 100 02/20/20 16:00 97 02/20/20 12:00 93 02/20/20 09:12 98 130/82 02/20/20 09:11 98 130/82 02/20/20 09:00 Room Air 02/20/20 08:00 97.2 98 18 130/82 (98) 100 02/20/20 08:00 98 02/20/20 04:00 97.5 96 18 109/74 (86) 97 02/20/20 03:44 94 02/20/20 00:00 97.5 90 18 107/92 (97) 97 02/19/20 23:31 89 02/19/20 21:00 Room Air 02/19/20 20:38 97.5 110 18 124/71 (88) 97 02/19/20 20:32 110 124/71 02/19/20 19:52 105 02/19/20 16:00 97 02/19/20 16:00 97.5 104 18 149/82 (104) 97 02/19/20 12:00 91 02/19/20 12:00 97.9 94 18 117/71 (86) 97 Intake and Output 02/20/20 02/21/20 19:00 07:00 Intake Total 890 ml 800 ml Output Total 1000 ml 1000 ml Balance -110 ml -200 ml Free Water 230 ml 200 ml Tube Feeding 660 ml 600 ml Output Urine Total 1000 ml 1000 ml # Bowel Movements 2 2 Labs Test 02/18/20 10:40 02/19/20 05:54 02/20/20 06:19 02/21/20 05:45 White Blood Count 20.0 K/UL (4.8-10.8) 14.8 K/UL (4.8-10.8) 11.9 K/UL (4.8-10.8) 17.4 K/UL (4.8-10.8) Red Blood Count 3.36 M/UL (4.20-5.40) 3.16 M/UL (4.20-5.40) 2.99 M/UL (4.20-5.40) 4.02 M/UL (4.20-5.40) Hemoglobin 9.5 G/DL (12.0-16.0) 8.9 G/DL (12.0-16.0) 8.4 G/DL (12.0-16.0) 11.2 G/DL (12.0-16.0) Hematocrit 27.7 % (37.0-47.0) 26.1 % (37.0-47.0) 25.0 % (37.0-47.0) 33.4 % (37.0-47.0) Mean Corpuscular Volume 82 FL (80-99) 83 FL (80-99) 84 FL (80-99) 83 FL (80- 99) Mean Corpuscular Hemoglobin 28.2 PG (27.0-31.0) 28.2 PG (27.0-31.0) 28.3 PG (27.0-31.0) 27.8 PG (27.0-31.0) Mean Corpuscular Hemoglobin Concent 34.2 G/DL (32.0-36.0) 34.0 G/DL (32.0-36.0) 33.8 G/DL (32.0-36.0) 33.4 G/DL (32.0-36.0) Red Cell Distribution Width 13.7 % (11.6-14.8) 14.1 % (11.6-14.8) 14.3 % (11.6-14.8) 14.4 % (11.6-14.8) Platelet Count 399 K/UL (150-450) 346 K/UL (150-450) 308 K/UL (150-450) 423 K/UL (150-450) Mean Platelet Volume 5.9 FL (6.5-10.1) 6.0 FL (6.5-10.1) 5.9 FL (6.5-10.1) 5.8 FL (6.5-10.1) Neutrophils (%) (Auto) % (45.0-75.0) 84.7 % (45.0-75.0) 81.4 % (45.0-75.0) % (45.0-75.0) Lymphocytes (%) (Auto) % (20.0-45.0) 5.1 % (20.0-45.0) 5.9 % (20.0-45.0) % (20.0-45.0) Monocytes (%) (Auto) % (1.0-10.0) 6.4 % (1.0-10.0) 6.1 % (1.0-10.0) % (1.0-10.0) Eosinophils (%) (Auto) % (0.0-3.0) 2.6 % (0.0-3.0) 5.6 % (0.0-3.0) % (0.0-3.0) Basophils (%) (Auto) % (0.0-2.0) 1.2 % (0.0-2.0) 1.0 % (0.0-2.0) % (0.0-2.0) Differential Total Cells Counted 100 100 Neutrophils % (Manual) 97 % (45-75) 89 % (45-75) Lymphocytes % (Manual) 2 % (20-45) 5 % (20-45) Monocytes % (Manual) 1 % (1-10) 4 % (1-10) Eosinophils % (Manual) 0 % (0-3) 2 % (0-3) Basophils % (Manual) 0 % (0-2) 0 % (0-2) Band Neutrophils 0 % (0-8) 0 % (0-8) Platelet Estimate Adequate Adequate Platelet Morphology Normal Normal Hypochromasia 2+ 1+ Anisocytosis 1+ 1+ Sodium Level 135 MMOL/L (136-145) 138 MMOL/L (136-145) 139 MMOL/L (136-145) 140 MMOL/L (136-145) Potassium Level 4.0 MMOL/L (3.5-5.1) 4.1 MMOL/L (3.5-5.1) 4.2 MMOL/L (3.5-5.1) 4.1 MMOL/L (3.5-5.1) Chloride Level 102 MMOL/L (98-107) 104 MMOL/L (98-107) 106 MMOL/L (98-107) 103 MMOL/L (98-107) Carbon Dioxide Level 22 MMOL/L (21-32) 25 MMOL/L (21-32) 25 MMOL/L (21-32) 28 MMOL/L (21-32) Anion Gap 11 mmol/L (5-15) 9 mmol/L (5-15) 8 mmol/L (5-15) 10 mmol/L (5-15) Blood Urea Nitrogen 17 mg/dL (7-18) 18 mg/dL (7-18) 19 mg/dL (7-18) 19 mg/dL (7-18) Creatinine 0.8 MG/DL (0.55-1.30) 0.9 MG/DL (0.55-1.30) 0.9 MG/DL (0.55-1.30) 0.8 MG/DL (0.55-1.30) Estimat Glomerular Filtration Rate > 60 mL/min (>60) > 60 mL/min (>60) > 60 mL/min (>60) > 60 mL/min (>60) Glucose Level 186 MG/DL (74-106) 113 MG/DL (74-106) 107 MG/DL (74-106) 129 MG/DL (74-106) Calcium Level 8.2 MG/DL (8.5-10.1) 8.1 MG/DL (8.5-10.1) 8.2 MG/DL (8.5-10.1) 8.7 MG/DL (8.5-10.1) Nucleated Red Blood Cells 1 /100 WBC Erythrocyte Sedimentation Rate 98 MM/HR (0-30) Total Bilirubin 0.2 MG/DL (0.2-1.0) Aspartate Amino Transf (AST/SGOT) 28 U/L (15-37) Alanine Aminotransferase (ALT/SGPT) 21 U/L (12-78) Alkaline Phosphatase 152 U/L (46-116) C-Reactive Protein, Quantitative 10.6 mg/dL (0.00-0.90) Total Protein 7.2 G/DL (6.4-8.2) Albumin 1.5 G/DL (3.4-5.0) Globulin 5.7 g/dL Albumin/Globulin Ratio 0.3 (1.0-2.7) Height (Feet): 5 Height (Inches): 1.00 Weight (Pounds): 127 Objective Review of Systems: negative Physical Exam Vitals: reviewed General Appearance: other - Contracted elderly female nonverbal Head: normocephalic, atraumatic Neck: full range of motion, supple Resp: chest non-tender, lungs clear, speaking full sentences Cardiovascular: tachycardia Gi: non tender, soft, GT+ Gu: Tovar catheter in place Psychiatric: nonverbal Skin: no rash Fermin Baum MD Feb 21, 2020 10:09
--- NOTE | 2020-02-21 10:41 | General Progress Note ---
Assessment/Plan Problem List: (1) Diarrhea ICD Codes: R19.7 - Diarrhea, unspecified SNOMED: 19601058 (2) GI (gastrointestinal bleed) ICD Codes: K92.2 - Gastrointestinal hemorrhage, unspecified SNOMED: 28270630 (3) Elevated troponin ICD Codes: R79.89 - Other specified abnormal findings of blood chemistry; R65.21 - Severe sepsis with septic shock SNOMED: 501449949, 015973878, 280244931 (4) Anemia ICD Codes: D64.9 - Anemia, unspecified SNOMED: 186636633 (5) Septic shock ICD Codes: A41.9 - Sepsis, unspecified organism; R65.21 - Severe sepsis with septic shock SNOMED: 24925036 Status: stable Assessment/Plan: diarrhea is better with Lomotil and Imodium neg stool C.diff TF , Glucerna 1.2 COVID >>> neg given active OK and stable H&H will hold GI procedures for now repeat stool ob>>> neg x2 repeat CBC fu ID regarding ABX treatment of Pylo fu repeat CT>>> reviewed>>>fu ID recs fu urology recs for hematuria Subjective ROS Limited/Unobtainable: No Allergies: Coded Allergies: No Known Allergies (Unverified , 01/30/20) Objective Last 24 Hour Vital Signs Date Time Temp Pulse Resp B/P (MAP) Pulse Ox O2 Delivery O2 Flow Rate FiO2 02/21/20 09:11 109 155/82 02/21/20 09:10 109 155/82 02/21/20 08:00 97.9 109 20 155/82 (106) 96 02/21/20 04:00 98.6 96 20 131/76 (94) 93 02/20/20 23:18 98.9 94 20 128/68 (88) 94 02/20/20 21:00 Room Air 02/20/20 20:34 100 121/67 02/20/20 20:00 98.4 100 20 121/67 (85) 100 02/20/20 16:00 97 02/20/20 12:00 93 Intake and Output 02/20/20 02/21/20 19:00 07:00 Intake Total 890 ml 800 ml Output Total 1000 ml 1000 ml Balance -110 ml -200 ml Free Water 230 ml 200 ml Tube Feeding 660 ml 600 ml Output Urine Total 1000 ml 1000 ml # Bowel Movements 2 2 Laboratory Tests 02/21/20 05:45: White Blood Count 17.4H, Red Blood Count 4.02L, Hemoglobin 11.2#L, Hematocrit 33.4#L, Mean Corpuscular Volume 83, Mean Corpuscular Hemoglobin 27.8, Mean Corpuscular Hemoglobin Concent 33.4, Red Cell Distribution Width 14.4, Platelet Count 423, Mean Platelet Volume 5.8L, Neutrophils (%) (Auto) , Lymphocytes (%) ( Auto) , Monocytes (%) (Auto) , Eosinophils (%) (Auto) , Basophils (%) (Auto) , Differential Total Cells Counted 100, Neutrophils % (Manual) 89H, Lymphocytes % (Manual) 5L, Monocytes % (Manual) 4, Eosinophils % (Manual) 2, Basophils % ( Manual) 0, Band Neutrophils 0, Nucleated Red Blood Cells 1, Platelet Estimate Adequate, Platelet Morphology Normal, Hypochromasia 1+, Anisocytosis 1+, Erythrocyte Sedimentation Rate 98H, Sodium Level 140, Potassium Level 4.1, Chloride Level 103, Carbon Dioxide Level 28, Anion Gap 10, Blood Urea Nitrogen 19H, Creatinine 0.8, Estimat Glomerular Filtration Rate > 60, Glucose Level 129H , Calcium Level 8.7, Total Bilirubin 0.2, Aspartate Amino Transf (AST/SGOT) 28, Alanine Aminotransferase (ALT/SGPT) 21, Alkaline Phosphatase 152H, C-Reactive Protein, Quantitative 10.6H, Total Protein 7.2, Albumin 1.5L, Globulin 5.7, Albumin/Globulin Ratio 0.3L Height (Feet): 5 Height (Inches): 1.00 Weight (Pounds): 127 General Appearance: alert EENT: normal ENT inspection Neck: supple Cardiovascular: normal rate Respiratory/Chest: decreased breath sounds Abdomen: normal bowel sounds, non tender, soft Extremities: non-tender Herminio Rodriguez MD Feb 21, 2020 10:41
--- NOTE | 2020-02-21 11:18 | Nephrology Progress Note ---
Assessment/Plan Plan #hypernatremia due to free water deficit of close to 3L-improved #sepsis due to Citrobacter bacteremia #h/o CVA with hemiplegia #DM #COPD # hyperlipidemia #hypothyroidism # GERD # unspecified CHF, S/p PPM # possible hydronephrosis on CT -> monitor off IVF -> monitor for ANGELICA _> CT abd/pelvis w con done on 02/14- left ureteral stent 02/18 - amlodipine 10mg daily - decreased free water flushes to 150 q6hr - monitor bmp daily - continue abx - avoid nephrotoxins - strict I&Os - daily weights - monitor lytes - urology eval -CT abd/pelvis w con done on 02/14- plan fro stent and nephrostomy - monitor Cr closely Subjective Subjective CT abd/pelvis w con done on 02/14- s/p left ureteral stent 02/18 WBC uptrending renal function and electrolytes stable Renal US: Impression: Moderate to severe left hydronephrosis versus parapelvic cysts mimicking hydronephrosis, versus combination of both. This also described on recent CT scan Atrophic right kidney. Mild right renal collecting system fullness, significance/etiology uncertain Objective Objective Last 24 Hour Vital Signs Date Time Temp Pulse Resp B/P (MAP) Pulse Ox O2 Delivery O2 Flow Rate FiO2 02/21/20 09:11 109 155/82 02/21/20 09:10 109 155/82 02/21/20 08:00 97.9 109 20 155/82 (106) 96 02/21/20 04:00 98.6 96 20 131/76 (94) 93 02/20/20 23:18 98.9 94 20 128/68 (88) 94 02/20/20 21:00 Room Air 02/20/20 20:34 100 121/67 02/20/20 20:00 98.4 100 20 121/67 (85) 100 02/20/20 16:00 97 02/20/20 12:00 93 Intake and Output 02/20/20 02/21/20 19:00 07:00 Intake Total 890 ml 800 ml Output Total 1000 ml 1000 ml Balance -110 ml -200 ml Free Water 230 ml 200 ml Tube Feeding 660 ml 600 ml Output Urine Total 1000 ml 1000 ml # Bowel Movements 2 2 Laboratory Tests 02/21/20 05:45: White Blood Count 17.4H, Red Blood Count 4.02L, Hemoglobin 11.2#L, Hematocrit 33.4#L, Mean Corpuscular Volume 83, Mean Corpuscular Hemoglobin 27.8, Mean Corpuscular Hemoglobin Concent 33.4, Red Cell Distribution Width 14.4, Platelet Count 423, Mean Platelet Volume 5.8L, Neutrophils (%) (Auto) , Lymphocytes (%) ( Auto) , Monocytes (%) (Auto) , Eosinophils (%) (Auto) , Basophils (%) (Auto) , Differential Total Cells Counted 100, Neutrophils % (Manual) 89H, Lymphocytes % (Manual) 5L, Monocytes % (Manual) 4, Eosinophils % (Manual) 2, Basophils % ( Manual) 0, Band Neutrophils 0, Nucleated Red Blood Cells 1, Platelet Estimate Adequate, Platelet Morphology Normal, Hypochromasia 1+, Anisocytosis 1+, Erythrocyte Sedimentation Rate 98H, Sodium Level 140, Potassium Level 4.1, Chloride Level 103, Carbon Dioxide Level 28, Anion Gap 10, Blood Urea Nitrogen 19H, Creatinine 0.8, Estimat Glomerular Filtration Rate > 60, Glucose Level 129H , Calcium Level 8.7, Total Bilirubin 0.2, Aspartate Amino Transf (AST/SGOT) 28, Alanine Aminotransferase (ALT/SGPT) 21, Alkaline Phosphatase 152H, C-Reactive Protein, Quantitative 10.6H, Total Protein 7.2, Albumin 1.5L, Globulin 5.7, Albumin/Globulin Ratio 0.3L Height (Feet): 5 Height (Inches): 1.00 Weight (Pounds): 127 Objective General Appearance: NAD, otherwise awake, alert, confused Neck: normal alignment, supple CV: RRR Respiratory: lungs clear, normal breath sounds, no respiratory distress Abdomen: non tender, soft, +PEG tube, c/d/i Ext: Contracted bilaterally, multiple abrasions wrapped in bandages C/D/I Cathy Fuller M.D. Feb 21, 2020 11:18
[2020-02-21 12:00] VITALS: BP 134/82
--- NOTE | 2020-02-21 13:01 | General Progress Note ---
Assessment/Plan Status: stable Assessment/Plan: 84 year old woman with history of CVA, hemiplegia, DM, COPD, CKD, hyperlipidemia , hypothyroidism, GERD, unspecified CHF, S/p PPM brought in from SNF with hypotension, found to be septic with leukocytosis and minimal pyuria #Sepsis #Citrobacter bacteremia #Enterococcus/VRE UTI #Yeast UTI #Left Hydronephrosis #Leukocytosis - WBC 17K today #Hypotension - resolved #Elevated lactate - resolved #diarrhea - improved #Fever - resolved -continue inpatient level of care, cardiac monitoring -COVID 19 negative -01/29 BCx +citrobacter, repeat on 02/02 BCx negative -c diff negative on 02/03, 02/14 -Cont.imodium, lomotil per ID -pt w/fever on 02/10: BCx NGTD -02/10: UCx + enterococcus/VRE -02/13 BCx w/GPC in pairs -CT A/p and renal US reviewed -CT abd/pel w/contrast 02/14: Evidence of left renal infection/UTI/Mathew with perinephric stranding, left hydronephrosis, duplicated left renal collecting system, atrophic right kidney -Continue IV abx as per ID recs x 5 days -Repeat CBC on 02/21 -S/p cysto with left sided ureteral stent placement 02/17 #NSTEMI #HTN #HLD #Elevated BNP #S/p PPM, [facility] DDD #Sinus tachycardia -Echo 02/10: EF 40-45% -PPM interrogated: sinus tach -trop peak 31>> 8 >> 2.23 -monitor closely for evidence of fluid overload -cont. home amlodipine 10 mg -cont. medical management ASA, lipitor -lopressor 50 BID w/hold parameters -EP, Dr. Corley, following -Cardio, Dr. Crain, following: no indication for cath at this time #Hypernatremia - resolved #Hyponatremia #Unspecified CKD #One Kidney -monitor renal function -FWF per nephro -Nephro following, recs appreciated #anemia #Thrombocytosis -downtrending, likely 2/2 to infectious process -cont. to monitor -no signs of bleeding -s/p 1 U PRBC on 02/16/20 -Heme, Dr. Baum, following, recs appreciated #Hypothyroidism -TSH normal -cont levothyroxine #Decubitus Ulcer -Wound care following, appreciate recs #Dementia #h/o CVA -AOx1 at b/l -supportive care, monitor mentation -fall precautions, aspiration precautions -PT/OT/TOWEL HEMMER -Frequent orienting -Neurology following: recs appreciated I spent 35 minutes on this patient's case, and >50% was dedicated to counseling and/or care coordination. Subjective Date patient seen: Feb 21, 2020 Time patient seen: 13:00 ROS Limited/Unobtainable: Yes Allergies: Coded Allergies: No Known Allergies (Unverified , 01/30/20) Subjective Follow up for sepsis, Citrobacter bacteremia, pyelonephritis Underwent cystoscopy with left sided ureteral stent placement on 02/17 WBC elevated to 17K again today. Objective Last 24 Hour Vital Signs Date Time Temp Pulse Resp B/P (MAP) Pulse Ox O2 Delivery O2 Flow Rate FiO2 02/21/20 09:11 109 155/82 02/21/20 09:10 109 155/82 02/21/20 09:00 Room Air 02/21/20 08:00 97.9 109 20 155/82 (106) 96 02/21/20 04:00 98.6 96 20 131/76 (94) 93 02/20/20 23:18 98.9 94 20 128/68 (88) 94 02/20/20 21:00 Room Air 02/20/20 20:34 100 121/67 02/20/20 20:00 98.4 100 20 121/67 (85) 100 02/20/20 16:00 97 Intake and Output 02/20/20 02/21/20 19:00 07:00 Intake Total 890 ml 800 ml Output Total 1000 ml 1000 ml Balance -110 ml -200 ml Free Water 230 ml 200 ml Tube Feeding 660 ml 600 ml Output Urine Total 1000 ml 1000 ml # Bowel Movements 2 2 Laboratory Tests 02/21/20 05:45: White Blood Count 17.4H, Red Blood Count 4.02L, Hemoglobin 11.2#L, Hematocrit 33.4#L, Mean Corpuscular Volume 83, Mean Corpuscular Hemoglobin 27.8, Mean Corpuscular Hemoglobin Concent 33.4, Red Cell Distribution Width 14.4, Platelet Count 423, Mean Platelet Volume 5.8L, Neutrophils (%) (Auto) , Lymphocytes (%) ( Auto) , Monocytes (%) (Auto) , Eosinophils (%) (Auto) , Basophils (%) (Auto) , Differential Total Cells Counted 100, Neutrophils % (Manual) 89H, Lymphocytes % (Manual) 5L, Monocytes % (Manual) 4, Eosinophils % (Manual) 2, Basophils % ( Manual) 0, Band Neutrophils 0, Nucleated Red Blood Cells 1, Platelet Estimate Adequate, Platelet Morphology Normal, Hypochromasia 1+, Anisocytosis 1+, Erythrocyte Sedimentation Rate 98H, Sodium Level 140, Potassium Level 4.1, Chloride Level 103, Carbon Dioxide Level 28, Anion Gap 10, Blood Urea Nitrogen 19H, Creatinine 0.8, Estimat Glomerular Filtration Rate > 60, Glucose Level 129H , Calcium Level 8.7, Total Bilirubin 0.2, Aspartate Amino Transf (AST/SGOT) 28, Alanine Aminotransferase (ALT/SGPT) 21, Alkaline Phosphatase 152H, C-Reactive Protein, Quantitative 10.6H, Total Protein 7.2, Albumin 1.5L, Globulin 5.7, Albumin/Globulin Ratio 0.3L Height (Feet): 5 Height (Inches): 1.00 Weight (Pounds): 127 General Appearance: alert, confused Cardiovascular: normal rate, regular rhythm Respiratory/Chest: lungs clear, no respiratory distress Abdomen: non tender, soft Carmine Major MD Feb 21, 2020 13:01
--- NOTE | 2020-02-21 14:36 | Cardiac Electrophysiology PN ---
Assessment/Plan Assessment/Plan 1. Status post right-sided [facility] DDD pacer implantation with Nl Fx by Interrogation Continue Lopressor 50 bid. 2. Acute NSTEMI with peak troponin 31. Down to 2. Non verbal. Continue aspirin, Lopressor and Lipitor. Echo on 02/11/20 EF 40-45% 3. Diabetes. 4. Hypertension, on Toprol 50 bid and Norvasc 10 daily 5. Status post septic shock with WBC 27 K. Improved on iv Abx per Dr. Naylor 6. Severe anemia. Hemoglobin improved from 7.5 to 9.4. 7. Dementia. 8. CVA. 10. COPD. 11. ARF and hydronephrosis, Cr now normal. S/P ureteral stent placement on 02/18/20 12. S/P PEG placement. LAKIA RN Subjective Subjective Nonverbal but alert and responsive in NAD. Now off tele S/P ureteral stent placement by Dr Leos on 02/18/20. Objective Last 24 Hour Vital Signs Date Time Temp Pulse Resp B/P (MAP) Pulse Ox O2 Delivery O2 Flow Rate FiO2 02/21/20 09:11 109 155/82 02/21/20 09:10 109 155/82 02/21/20 09:00 Room Air 02/21/20 08:00 97.9 109 20 155/82 (106) 96 02/21/20 04:00 98.6 96 20 131/76 (94) 93 02/20/20 23:18 98.9 94 20 128/68 (88) 94 02/20/20 21:00 Room Air 02/20/20 20:34 100 121/67 02/20/20 20:00 98.4 100 20 121/67 (85) 100 02/20/20 16:00 97 Intake and Output 02/20/20 02/21/20 19:00 07:00 Intake Total 890 ml 800 ml Output Total 1000 ml 1000 ml Balance -110 ml -200 ml Free Water 230 ml 200 ml Tube Feeding 660 ml 600 ml Output Urine Total 1000 ml 1000 ml # Bowel Movements 2 2 Laboratory Tests Test 02/21/20 05:45 White Blood Count 17.4 K/UL (4.8-10.8) H Red Blood Count 4.02 M/UL (4.20-5.40) L Hemoglobin 11.2 G/DL (12.0-16.0) #L Hematocrit 33.4 % (37.0-47.0) #L Mean Corpuscular Volume 83 FL (80-99) Mean Corpuscular Hemoglobin 27.8 PG (27.0-31.0) Mean Corpuscular Hemoglobin Concent 33.4 G/DL (32.0-36.0) Red Cell Distribution Width 14.4 % (11.6-14.8) Platelet Count 423 K/UL (150-450) Mean Platelet Volume 5.8 FL (6.5-10.1) L Neutrophils (%) (Auto) % (45.0-75.0) Lymphocytes (%) (Auto) % (20.0-45.0) Monocytes (%) (Auto) % (1.0-10.0) Eosinophils (%) (Auto) % (0.0-3.0) Basophils (%) (Auto) % (0.0-2.0) Differential Total Cells Counted 100 Neutrophils % (Manual) 89 % (45-75) H Lymphocytes % (Manual) 5 % (20-45) L Monocytes % (Manual) 4 % (1-10) Eosinophils % (Manual) 2 % (0-3) Basophils % (Manual) 0 % (0-2) Band Neutrophils 0 % (0-8) Nucleated Red Blood Cells 1 /100 WBC Platelet Estimate Adequate Platelet Morphology Normal Hypochromasia 1+ Anisocytosis 1+ Erythrocyte Sedimentation Rate 98 MM/HR (0-30) H Sodium Level 140 MMOL/L (136-145) Potassium Level 4.1 MMOL/L (3.5-5.1) Chloride Level 103 MMOL/L (98-107) Carbon Dioxide Level 28 MMOL/L (21-32) Anion Gap 10 mmol/L (5-15) Blood Urea Nitrogen 19 mg/dL (7-18) H Creatinine 0.8 MG/DL (0.55-1.30) Estimat Glomerular Filtration Rate > 60 mL/min (>60) Glucose Level 129 MG/DL (74-106) H Calcium Level 8.7 MG/DL (8.5-10.1) Total Bilirubin 0.2 MG/DL (0.2-1.0) Aspartate Amino Transf (AST/SGOT) 28 U/L (15-37) Alanine Aminotransferase (ALT/SGPT) 21 U/L (12-78) Alkaline Phosphatase 152 U/L (46-116) H C-Reactive Protein, Quantitative 10.6 mg/dL (0.00-0.90) H Total Protein 7.2 G/DL (6.4-8.2) Albumin 1.5 G/DL (3.4-5.0) L Globulin 5.7 g/dL Albumin/Globulin Ratio 0.3 (1.0-2.7) L Microbiology Date/Time Source Procedure Growth Status 02/18/20 14:51 Urine,Ureter/Kidney Urine Culture - Final NO GROWTH AFTER 48 HOURS Complete Objective HEAD AND NECK: Shows no JVD. LUNGS: Coarse rhonchi. CARDIOVASCULAR: Regular S1 and S2. Pacemaker is in the right subclavian. ABDOMEN: Soft.PEG in place. Has john EXTREMITIES: Contracted. Oscar Corley MD Feb 21, 2020 14:36
--- NOTE | 2020-02-21 14:46 | Surgery Progress Note ---
Surgery Progress Note Subjective Additional Comments stable no acute events labs reviewed exam unchanged Objective Last 24 Hour Vital Signs Date Time Temp Pulse Resp B/P (MAP) Pulse Ox O2 Delivery O2 Flow Rate FiO2 02/21/20 12:00 97.5 98 18 134/82 (99) 99 02/21/20 09:11 109 155/82 02/21/20 09:10 109 155/82 02/21/20 09:00 Room Air 02/21/20 08:00 97.9 109 20 155/82 (106) 96 02/21/20 04:00 98.6 96 20 131/76 (94) 93 02/20/20 23:18 98.9 94 20 128/68 (88) 94 02/20/20 21:00 Room Air 02/20/20 20:34 100 121/67 02/20/20 20:00 98.4 100 20 121/67 (85) 100 02/20/20 16:00 97 I&O Intake and Output 02/20/20 02/21/20 19:00 07:00 Intake Total 890 ml 800 ml Output Total 1000 ml 1000 ml Balance -110 ml -200 ml Free Water 230 ml 200 ml Tube Feeding 660 ml 600 ml Output Urine Total 1000 ml 1000 ml # Bowel Movements 2 2 Dressing: saturated Wound: other Drains: other Cardiovascular: RSR Respiratory: decreased breath sounds Abdomen: soft, non-tender, present bowel sounds Extremities: no cyanosis Laboratory Tests Test 02/21/20 05:45 White Blood Count 17.4 K/UL (4.8-10.8) H Red Blood Count 4.02 M/UL (4.20-5.40) L Hemoglobin 11.2 G/DL (12.0-16.0) #L Hematocrit 33.4 % (37.0-47.0) #L Mean Corpuscular Volume 83 FL (80-99) Mean Corpuscular Hemoglobin 27.8 PG (27.0-31.0) Mean Corpuscular Hemoglobin Concent 33.4 G/DL (32.0-36.0) Red Cell Distribution Width 14.4 % (11.6-14.8) Platelet Count 423 K/UL (150-450) Mean Platelet Volume 5.8 FL (6.5-10.1) L Neutrophils (%) (Auto) % (45.0-75.0) Lymphocytes (%) (Auto) % (20.0-45.0) Monocytes (%) (Auto) % (1.0-10.0) Eosinophils (%) (Auto) % (0.0-3.0) Basophils (%) (Auto) % (0.0-2.0) Differential Total Cells Counted 100 Neutrophils % (Manual) 89 % (45-75) H Lymphocytes % (Manual) 5 % (20-45) L Monocytes % (Manual) 4 % (1-10) Eosinophils % (Manual) 2 % (0-3) Basophils % (Manual) 0 % (0-2) Band Neutrophils 0 % (0-8) Nucleated Red Blood Cells 1 /100 WBC Platelet Estimate Adequate Platelet Morphology Normal Hypochromasia 1+ Anisocytosis 1+ Erythrocyte Sedimentation Rate 98 MM/HR (0-30) H Sodium Level 140 MMOL/L (136-145) Potassium Level 4.1 MMOL/L (3.5-5.1) Chloride Level 103 MMOL/L (98-107) Carbon Dioxide Level 28 MMOL/L (21-32) Anion Gap 10 mmol/L (5-15) Blood Urea Nitrogen 19 mg/dL (7-18) H Creatinine 0.8 MG/DL (0.55-1.30) Estimat Glomerular Filtration Rate > 60 mL/min (>60) Glucose Level 129 MG/DL (74-106) H Calcium Level 8.7 MG/DL (8.5-10.1) Total Bilirubin 0.2 MG/DL (0.2-1.0) Aspartate Amino Transf (AST/SGOT) 28 U/L (15-37) Alanine Aminotransferase (ALT/SGPT) 21 U/L (12-78) Alkaline Phosphatase 152 U/L (46-116) H C-Reactive Protein, Quantitative 10.6 mg/dL (0.00-0.90) H Total Protein 7.2 G/DL (6.4-8.2) Albumin 1.5 G/DL (3.4-5.0) L Globulin 5.7 g/dL Albumin/Globulin Ratio 0.3 (1.0-2.7) L Plan Problems: (1) Septic shock Assessment & Plan: Patient presented to emergency department with sepsis hypotension tachycardia lactic acidosis leukocytosis. On IV antibiotics Labs improving IV hydration Continue tube feeds advance goal as tolerated Abdominal exam does elicit patient to retract a bit but she is not tender peritonitis or without rebound or significant guarding. exam improved Likely startle effect rather than intra-abdominal pathology will follow with serial exams continue with current care plan thank you for let me participate in patient's care leukocytosis. c diff negative. blood cultures noted abx as per ID Severe left hydronephrosis versus parapelvic cysts. No definite obstructing stone. Mild bladder wall thickening with small gas foci in the bladder, concerning for cystitis. Please correlate with urinalysis. Acute NSTEMI with peak troponin 31 as per cardiology wbc fever micro worsening leukocytosis improving labs improved downgraded exam stable labs ordered -Small bilateral pleural effusions with passive atelectasis and lung base motion artifact. -Pacer device leads in the heart. -Tovar catheter in the decompressed urinary bladder. - No urolithiasis seen. -Consider left renal collecting system infection/UTI/pyelonephritis in the proper context given moderate left perinephric stranding which is asymmetric compared with the right. -Similar to prior study left inferior renal moiety moderate hydronephrosis without visualized cause. 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 -If there is further desire to evaluate collecting system dilation, consider repeating the study with CT hematuria protocol. -Sacral decubitus ulcer, correlate with presentation. - Rapid transit of contrast through the GI tract could be incidental or could be seen with an infectious or inflammatory enteritis. -Indeterminate left adrenal 2.1 cm enhancing nodule, if felt to alter clinical management consider additional evaluation adrenal gland. CONSIDER correlation with prior imaging studies. -Right renal cortical scarring due to old infectious or ischemic insults. -Atherosclerotic vascular disease. - Hysterectomy. -Unchanged osteopenia and degenerative spine findings. Unchanged old right possible lesser trochanter fracture versus extensive right hip capsular calcifications. 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 The lower pole collecting system is markedly hydronephrotic. The upper pole collecting system is normal in appearance. There is inflammatory change surrounding the lower pole of the left kidney, with some fluid tracking caudad along Gerota's fascia. There is either a cyst or dilated calyx in the left lower pole, suspect the latter as this appears to communicate with the collecting system along the anterior border of the kidney, best visualized on the sagittal reconstructed images. No obstructing stone or mass is demonstrated. There is no hydroureter. The upper pole collecting system is nondilated. There is probably only a single left ureter, but this cannot be stated for certain. The right kidney demonstrates subcentimeter low-attenuation lesions which are too small to characterize, most likely benign simple cysts. There is a Tovar catheter within the bladder, which contains some gas presumably related to the Tovar catheterization. There are retrococcygeal decubitus changes and suspicion for some ulceration. This is more evident than on the prior exam. No definite osseous destruction. The liver, gallbladder, bile ducts, pancreas, spleen, adrenals are unremarkable. No retroperitoneal or mesenteric mass or adenopathy. No pelvic mass or adenopathy. The uterus is absent. Ingested contrast has reached the distal colon, and there is some evidence of rectal fecal incontinence. No evidence of colonic diverticulosis or diverticulitis. The appendix is normal. No small bowel distention. No small bowel wall thickening. There is a small amount of free pelvic fluid. Distal esophagus is unremarkable. The stomach contains a gastrostomy which appears to be well positioned. Fairly extensive chronic degenerative changes are seen about both hips. There is some infiltration of the subcutaneous fat in the bilateral neck regions which is nonspecific. There are degenerative changes of the lumbar spine Included lung bases demonstrate small bilateral pleural effusions. Hazy parenchymal disease is seen in the bilateral lower lobes. 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 Inflammatory change is seen surrounding the lower pole left kidney. This is new since the prior exam, could inflammation secondary to acute obstruction versus infection, suspect the latter. Etiology of obstruction not demonstrated, could a congenital ureteropelvic junction obstruction Retrococcygeal decubitus changes and possibly ulceration. Correlate with clinical findings Bilateral pleural effusions. This is new since the previous study. 1.6 cm left adrenal mass, much more clearly demonstrated on the previous exam. Consider follow-up with adrenal protocol CT if this would affect management Gastrostomy, Tovar catheter, pacemaker incidentally noted Evidence of prior hysterectomy Incidental findings of degenerative disc disease, bilateral hip degenerative changes (2) Decubitus skin ulcer Assessment & Plan: 84-year-old female presented on admission with multiple decubitus skin ulcers and skin concerns. Patient identified to have a unstageable sacral lower back decubitus ulcer, periwound maceration, area of necrotic eschar soft, no drainage, no abscess, no foul odor Pt presented on admission with contractures, Multiple Pressure injuries.open DTPI sacrum.Wound is open at sacrococcygeal area(40%), with soft necrotic base ( L)5.5cm x (W)4.5cm. Surrounding base of wound is maroon and indurated. Total area of sacral DTPI measures(L) 12.5cm x (W)15cm. Non-blanching erythema periwound.In addition several small partial thickness wounds noted along Perineum.` Areas of hyperpigmentation noted to L and R trochanteric. Full thickness wound R knee.(L)1.1cm x (W)1.5cm.1 Base of wound 90% pink granulation,10% slough noted in center of wound. Borders are macerated.small amt serous exudate. No odor noted. No erythema or fluctuance noted periwound. Non-blanching erythema with fluctuance R heel. Unstageable pressure injury R hallux. Base of wound is 100% soft necrosis. Edges adherent and dry.No odor or exudate noted.Surrounding darker skin tone without erythema or fluctuance(L)2.6cm x (W)3cm. DTPI R Ankle(L)0.9cm x (W)1.6cm. Base of wound is fluctuant, maroon with marginal erythema. Periwound without erythema or fluctuance. Unstageable pressure injury distal/lateral R foot. Base of wound 100% soft necrosis with surrounding non-blanching erythema with fluctuance.(L)2cm x (W) 0.9cm. Stable dry eschar medial/lateral R foot (L)0.4cm x (W)0.8cm. Stable dry eschar lateral L heel.(L)1.9cm x (W)2.2cm. No erythema or fluctuance periwound. Unstable pressure injury medial/lateral L foot. Base of wound is 100% necrotic but dry.(L)0.7cm x (W)0.8cm. Unstageable pressure injury distal/lateral L foot. Base of wound is 100% necrotic but dry. (L)1.2cm x (W)1.6cm.non-blanching erythema without fluctuance periwound. Non-blanching erythema without fluctuance lateral L 5th metatarsal.(L)1.5cm x (W )0.5cm. Open DTPI L Hallux.Base of wound has mixed necrosis and slough with surrounding base of wound maroon with fluctuance. Non-blanching erythema without elevation in skin temp,or fluctuance periwound. Tx.plan: Cleanse Sacral wound with Saline. Apply TheraHoney. Apply Moisture Barrier Paste Periwound. Cover with Optifoam drsg. Change Daily and prn. Swab R nee with Betadine. Cover with Optifoam drsg every 3 days and prn. Swab wounds R foot with Betadine. Cover each wound with Optifoam drsg. Change every 3 days and prn. Swab wounds L foot with Betadine. Cover each wound with Optifoam drsg. Change every 3 days and prn. Reposition at least every 2hours or as tolerated. Place pillow between knees. Off-load heels with Pillow. APM/ARIEL Mattress. DAILY ESTIMATED NEEDS: Needs based on Wounds, underweight 50kg 30-35 kcals/kg 5707-0665 total kcals 1.25-2 g protein/kg 63-100 g total protein 25-30 mL/kg 7985-1777 total fluid mLs NUTRITION DIAGNOSIS: Increased kcal and pro needs r/t underweight status and wound healing as evidenced by pt @85% [place] Body Weight w/ multiple wounds, eval pending, pt is PEG dep. CURRENT TF:Glucerna 1.5 @60ml x20 hrs ENTERAL NUTRITION RECOMMENDATIONS: Maintain current TF as tolerated: Glucerna 1.5 @60ml/hr x20 hrs to provide 1200ml, 1800 kcal, 99g pro, 911ml free H2o -> Monitor for hypoglycemia and need to change to non carb control formula -> Flush per MD. HOB over 30 degrees ADDITIONAL RECOMMENDATIONS: 1) On iso, per SNF pt is: 65 inches + 110#/50kg 2) Wound care: add MATT in 4oz H2O BID via GT F/up w/ WC eval 3) Maintain calibrated bed scale wts 4) Monitor for continued hypoglycemic events, need for D5 or TF change Luther Mercedes Feb 21, 2020 14:46
[2020-02-21 16:00] VITALS: BP 128/71
[2020-02-21] MEDS: cefTRIAXone 1 GM in D5W 50 ML IVPB SCH (17:25)
[2020-02-21 20:00] VITALS: BP 148/84
--- NOTE | 2020-02-21 22:19 | Neurology Progress Note ---
Interim History Interim History ROS Limited/Unobtainable: Yes Interim History no new neuro deficits Objective Physical Exam Last Vital Signs Date Time Temp Pulse Resp B/P (MAP) Pulse Ox O2 Delivery O2 Flow Rate FiO2 02/21/20 16:00 97.7 105 20 128/71 (90) 96 02/21/20 09:00 Room Air 02/18/20 16:20 3 Laboratory Tests Test 02/21/20 05:45 White Blood Count 17.4 K/UL (4.8-10.8) H Red Blood Count 4.02 M/UL (4.20-5.40) L Hemoglobin 11.2 G/DL (12.0-16.0) #L Hematocrit 33.4 % (37.0-47.0) #L Mean Corpuscular Volume 83 FL (80-99) Mean Corpuscular Hemoglobin 27.8 PG (27.0-31.0) Mean Corpuscular Hemoglobin Concent 33.4 G/DL (32.0-36.0) Red Cell Distribution Width 14.4 % (11.6-14.8) Platelet Count 423 K/UL (150-450) Mean Platelet Volume 5.8 FL (6.5-10.1) L Neutrophils (%) (Auto) % (45.0-75.0) Lymphocytes (%) (Auto) % (20.0-45.0) Monocytes (%) (Auto) % (1.0-10.0) Eosinophils (%) (Auto) % (0.0-3.0) Basophils (%) (Auto) % (0.0-2.0) Differential Total Cells Counted 100 Neutrophils % (Manual) 89 % (45-75) H Lymphocytes % (Manual) 5 % (20-45) L Monocytes % (Manual) 4 % (1-10) Eosinophils % (Manual) 2 % (0-3) Basophils % (Manual) 0 % (0-2) Band Neutrophils 0 % (0-8) Nucleated Red Blood Cells 1 /100 WBC Platelet Estimate Adequate Platelet Morphology Normal Hypochromasia 1+ Anisocytosis 1+ Erythrocyte Sedimentation Rate 98 MM/HR (0-30) H Sodium Level 140 MMOL/L (136-145) Potassium Level 4.1 MMOL/L (3.5-5.1) Chloride Level 103 MMOL/L (98-107) Carbon Dioxide Level 28 MMOL/L (21-32) Anion Gap 10 mmol/L (5-15) Blood Urea Nitrogen 19 mg/dL (7-18) H Creatinine 0.8 MG/DL (0.55-1.30) Estimat Glomerular Filtration Rate > 60 mL/min (>60) Glucose Level 129 MG/DL (74-106) H Calcium Level 8.7 MG/DL (8.5-10.1) Total Bilirubin 0.2 MG/DL (0.2-1.0) Aspartate Amino Transf (AST/SGOT) 28 U/L (15-37) Alanine Aminotransferase (ALT/SGPT) 21 U/L (12-78) Alkaline Phosphatase 152 U/L (46-116) H C-Reactive Protein, Quantitative 10.6 mg/dL (0.00-0.90) H Total Protein 7.2 G/DL (6.4-8.2) Albumin 1.5 G/DL (3.4-5.0) L Globulin 5.7 g/dL Albumin/Globulin Ratio 0.3 (1.0-2.7) L Head: normocophalic, atraumatic Neck: no rigidity EENT: benign Neurologic Exam Sensory: other - cc 35 min Objective alert, tracks with eyes, Right sided weaker than left Impression/Recommendations Problems: (1) Septic shock (2) Anemia (3) Elevated troponin (4) Sepsis (5) Decubitus skin ulcer Status: stable Diagnostic Impression Acute encephalopathy in the context of sepsis Dementia, likely vascular Hx of strokes Monitor neuro exam Delirium precautions atb per primary asa daily PT OT Luis Nash MD Feb 21, 2020 22:19
[2020-02-21] MEDS: Atorvastatin 20mg tab ORAL SCH (22:21)
[2020-02-22] VITALS: BP 140/86
[2020-02-22 04:00] VITALS: BP 126/91
[2020-02-22] MEDS: Levothyroxine 25mcg tab ORAL SCH (06:26)
[2020-02-22 07:26] LABS: HEMATOCRIT 30.8 % (37.0-47.0); HEMOGLOBIN 10.4 G/DL (12.0-16.0); MEAN CORPUSCULAR VOLUME 83 FL (80-99); PLATELET COUNT 393 K/UL (150-450); RED BLOOD COUNT 3.72 M/UL (4.20-5.40); RED CELL DISTRIBUTION WIDTH 17.4 % (11.6-14.8); WHITE BLOOD COUNT 16.9 K/UL (4.8-10.8)
[2020-02-22 08:00] VITALS: BP 133/79
--- NOTE | 2020-02-22 08:54 | Urology Progress Note ---
Assessment/Plan Status: stable Assessment/Plan: 1. Left-sided hydronephrosis. 2. Urinary retention. 3. Neurogenic bladder. 4. Proteinuria. 5. Hematuria. 6. Pyuria. 7. Sepsis history. 8. Cystitis. 9. likely renal cyst. 10. POD # 4, left ureteral stent monitor clinically john indwelling hand irrigated and do PRN monitor renal fxn and WBC, fluctuating on abx, per ID voiding trial later hydro likely chronic, no stones, likely UPJ obst stent placed f/u on last blood cx d/w primary service Subjective Allergies: Coded Allergies: No Known Allergies (Unverified , 01/30/20) Subjective all noted, doing fair Objective Last 24 Hour Vital Signs Date Time Temp Pulse Resp B/P (MAP) Pulse Ox O2 Delivery O2 Flow Rate FiO2 02/22/20 08:00 97.6 104 18 133/79 (97) 99 02/22/20 04:00 98.7 100 20 126/91 (103) 94 02/22/20 00:00 98.5 99 20 140/86 (104) 94 02/21/20 22:20 105 148/84 02/21/20 21:00 Room Air 02/21/20 20:00 98.6 110 20 148/84 (105) 95 02/21/20 16:00 97.7 105 20 128/71 (90) 96 02/21/20 12:00 97.5 98 18 134/82 (99) 99 02/21/20 09:11 109 155/82 02/21/20 09:10 109 155/82 02/21/20 09:00 Room Air Intake and Output 02/21/20 02/22/20 19:00 07:00 Intake Total 1440 ml 1000 ml Output Total 1400 ml 800 ml Balance 40 ml 200 ml Intake Oral 120 ml Free Water 600 ml 400 ml Tube Feeding 720 ml 600 ml Output Urine Total 1400 ml 800 ml # Voids 1 # Bowel Movements 2 3 Microbiology Date/Time Source Procedure Growth Status 02/20/20 18:10 Blood Blood Culture - Preliminary NO GROWTH AFTER 24 HOURS Resulted 01/30/20 15:45 Nasal Nares MRSA Culture - Final NO METHICILLIN RESISTANT STAPH AUREUS... Complete 02/15/20 06:00 Stool Clostridium difficile Toxin Assay - Final Complete 02/18/20 14:51 Urine,Ureter/Kidney Urine Culture - Final NO GROWTH AFTER 48 HOURS Complete 01/30/20 15:45 Rectum VRE Culture - Final NO VANCOMYCIN RESISTANT ENTEROCOCCUS ... Complete Current Medications Medications (Trade) Dose Ordered Sig/[place] Route PRN Reason Start Time Stop Time Status Last Admin Dose Admin Acetaminophen (Tylenol) 650 mg Q4H PRN GT MILD/TEMP 02/20/20 17:24 03/08/20 17:23 Amlodipine Besylate (Norvasc) 10 mg DAILY ORAL 02/21/20 09:00 03/17/20 08:59 02/21/20 09:11 Aspirin (ASA) 81 mg DAILY GT 02/21/20 09:00 03/27/20 08:59 02/21/20 09:10 Atorvastatin Calcium (Lipitor) 40 mg BEDTIME ORAL 02/20/20 21:00 04/29/20 20:59 02/21/20 22:21 Ceftriaxone Sodium 1 gm/ Dextrose 50 ml @ 100 mls/hr Q24H IVPB 02/20/20 17:30 02/27/20 17:29 02/21/20 17:25 Dextrose (Dextrose 50%) 25 ml Q30M PRN IV Hypoglycemia 02/20/20 17:30 04/29/20 18:59 Dextrose (Dextrose 50%) 50 ml Q30M PRN IV Hypoglycemia 02/20/20 17:30 04/29/20 18:59 Diphenhydramine HCl (Benadryl) 25 mg Q6H PRN ORAL Itching/Pruritis 02/20/20 17:27 03/10/20 17:26 Diphenoxylate HCl/ Atropine (Lomotil) 2.5 mg Q4H PRN GT Diarrhea 02/20/20 17:28 03/08/20 17:27 Fluconazole (Diflucan) 200 mg DAILY ORAL 02/21/20 09:00 02/28/20 08:59 02/21/20 09:10 Levothyroxine Sodium (Synthroid) 25 mcg DAILY@0630 ORAL 02/21/20 06:30 03/01/20 06:29 02/22/20 06:26 Linezolid (Zyvox) 600 mg EVERY 12 HOURS ORAL 02/20/20 21:00 02/25/20 20:59 02/21/20 22:20 Loperamide HCl (Imodium) 2 mg Q3H PRN NG Diarrhea 02/20/20 18:45 03/11/20 12:44 Metoprolol Tartrate (Lopressor) 50 mg Q12HR GT 02/20/20 21:00 05/13/20 08:59 02/21/20 22:20 Ondansetron HCl (Zofran) 4 mg Q6H PRN IVP Nausea & Vomiting 02/20/20 21:00 02/29/20 14:59 Laboratory Tests 02/22/20 05:25: White Blood Count 16.9H, Red Blood Count 3.72L, Hemoglobin 10.4L, Hematocrit 30.8L, Mean Corpuscular Volume 83, Mean Corpuscular Hemoglobin 27.8, Mean Corpuscular Hemoglobin Concent 33.6, Red Cell Distribution Width 17.4H, Platelet Count 393, Mean Platelet Volume 6.4L, Neutrophils (%) (Auto) , Lymphocytes (%) (Auto) , Monocytes (%) (Auto) , Eosinophils (%) (Auto) , Basophils (%) (Auto) , Neutrophils % (Manual) [Pending], Lymphocytes % (Manual) [Pending], Platelet Estimate [Pending], Platelet Morphology [Pending] Height (Feet): 5 Height (Inches): 1.00 Weight (Pounds): 127 Objective exam stable john indwelling, yellow/evangelina urine with occasional debris renal u/s (02/11) noted CT A/P with IV contrast (02/14) noted Timothy Leos MD Feb 22, 2020 08:54
[2020-02-22] MEDS: Fluconazole 100mg tab ORAL SCH (09:37)
[2020-02-22] MEDS: Aspirin Baby 81mg GT SCH (09:37)
[2020-02-22] MEDS: Metoprolol Tartrate 50mg tab GT SCH ×2 (09:38→20:55)
--- NOTE | 2020-02-22 09:45 | General Progress Note ---
Assessment/Plan Problem List: (1) Diarrhea ICD Codes: R19.7 - Diarrhea, unspecified SNOMED: 78280975 (2) GI (gastrointestinal bleed) ICD Codes: K92.2 - Gastrointestinal hemorrhage, unspecified SNOMED: 52992896 (3) Elevated troponin ICD Codes: R79.89 - Other specified abnormal findings of blood chemistry; R65.21 - Severe sepsis with septic shock SNOMED: 766708460, 466022260, 787094819 (4) Anemia ICD Codes: D64.9 - Anemia, unspecified SNOMED: 352980082 (5) Septic shock ICD Codes: A41.9 - Sepsis, unspecified organism; R65.21 - Severe sepsis with septic shock SNOMED: 66802907 Status: stable Assessment/Plan: diarrhea is better with Lomotil and Imodium neg stool C.diff TF , Glucerna 1.2 COVID >>> neg given active OH and stable H&H will hold GI procedures for now repeat stool ob>>> neg x2 repeat CBC fu ID regarding ABX treatment of Pylo fu repeat CT>>> reviewed>>>fu ID recs fu urology recs for hematuria Subjective ROS Limited/Unobtainable: No Allergies: Coded Allergies: No Known Allergies (Unverified , 01/30/20) Objective Last 24 Hour Vital Signs Date Time Temp Pulse Resp B/P (MAP) Pulse Ox O2 Delivery O2 Flow Rate FiO2 02/22/20 09:38 104 133/79 02/22/20 09:37 104 133/79 02/22/20 08:00 97.6 104 18 133/79 (97) 99 02/22/20 04:00 98.7 100 20 126/91 (103) 94 02/22/20 00:00 98.5 99 20 140/86 (104) 94 02/21/20 22:20 105 148/84 02/21/20 21:00 Room Air 02/21/20 20:00 98.6 110 20 148/84 (105) 95 02/21/20 16:00 97.7 105 20 128/71 (90) 96 02/21/20 12:00 97.5 98 18 134/82 (99) 99 Intake and Output 02/21/20 02/22/20 19:00 07:00 Intake Total 1440 ml 1000 ml Output Total 1400 ml 800 ml Balance 40 ml 200 ml Intake Oral 120 ml Free Water 600 ml 400 ml Tube Feeding 720 ml 600 ml Output Urine Total 1400 ml 800 ml # Voids 1 # Bowel Movements 2 3 Laboratory Tests 02/22/20 05:25: White Blood Count 16.9H, Red Blood Count 3.72L, Hemoglobin 10.4L, Hematocrit 30.8L, Mean Corpuscular Volume 83, Mean Corpuscular Hemoglobin 27.8, Mean Corpuscular Hemoglobin Concent 33.6, Red Cell Distribution Width 17.4H, Platelet Count 393, Mean Platelet Volume 6.4L, Neutrophils (%) (Auto) , Lymphocytes (%) (Auto) , Monocytes (%) (Auto) , Eosinophils (%) (Auto) , Basophils (%) (Auto) , Neutrophils % (Manual) [Pending], Lymphocytes % (Manual) [Pending], Platelet Estimate [Pending], Platelet Morphology [Pending] Height (Feet): 5 Height (Inches): 1.00 Weight (Pounds): 127 General Appearance: no apparent distress EENT: normal ENT inspection Neck: supple Cardiovascular: normal rate Respiratory/Chest: decreased breath sounds Abdomen: normal bowel sounds, non tender, soft Extremities: non-tender Herminio Rodriguez MD Feb 22, 2020 09:45
--- NOTE | 2020-02-22 11:10 | Hematology/Onc Progress Note ---
Assessment/Plan Assessment/Plan Assessment and Recs: # Leukocytosis likely due to sepsi and citrobacter bacteremia, vre/enterococcus uti, fungemia risk --> imaging has since been reviewed --> peripheral smear is negative --> abx as per id: meropenem/linezolid --> flow cytometry if doesn't improve by next week --> c diff and covid 19 negative --> wbc trend: 21.9-->21.9-->14.8 ->12->17 # Anemia likely due to iron deficiency --> ferritin is ordered, other anemia panel reviewed --> hgb trend 8.6-->8.8-->9.3 -->9-->8.9-->8.4-->11->10 --> hgb goal greater than 7, transfuse as needed --> no evidence of hemolysis is noted --> prbc: 1 unit 02/16/2020 # hypernatremia due to free water deficit of close to 3L-improved --> per renal --> on ivfs # 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 Subjective Constitutional: Denies: no symptoms, chills, fever, malaise, weakness, other HEENT: Denies: no symptoms, eye pain, blurred vision, tearing, double vision, ear pain, ear discharge, nose pain, nose congestion, throat pain, throat swelling, mouth pain, mouth swelling, other Cardiovascular: Denies: no symptoms, chest pain, edema, irregular heart rate, lightheadedness, palpitations, syncope, other Respiratory: Denies: no symptoms, cough, shortness of breath, SOB with excertion, SOB at rest, sputum, wheezing, other Gastrointestinal/Abdominal: Denies: no symptoms, abdomen distended, abdominal pain, black stools, tarry stools, blood in stool, constipated, diarrhea, difficulty swallowing, nausea, poor appetite, poor fluid intake, rectal bleeding , vomiting, other Genitourinary: Denies: no symptoms, burning, discharge, frequency, flank pain, hematuria, incontinence, pain, urgency, other Neurologic/Psychiatric: Denies: no symptoms, anxiety, depressed, emotional problems, headache, numbness, paresthesia, pre-existing deficit, seizure, tingling, tremors, weakness, other Endocrine: Denies: no symptoms, excessive sweating, flushing, intolerance to cold, intolerance to heat, increased hunger, increased thirst, increased urine, unexplained weight gain, unexplained weight loss, other Allergies: Coded Allergies: No Known Allergies (Unverified , 01/30/20) Subjective 02/16 s/p 1 unit rbc, hgb 9.3, on iv iron, covid 19 negative 02/17 no events, this am, right sided weakness, labs are noted, reviewed, dw gi 02/18 s/p cysto, stool ob negative, labs reviewed, on room air 02/19 remains same, labs noted, nonverbal, unable to do ros hgb 8.4 02/20 no events, no bleeding, no chills, no labs, no night sweats 02/21 no events, no bleeding, labs reviewed, no night sweats, no fc hgb 10 Objective Objective Current Medications Medications (Trade) Dose Ordered Sig/Moreno Route PRN Reason Start Time Stop Time Status Last Admin Dose Admin Acetaminophen (Tylenol) 650 mg Q4H PRN GT MILD/TEMP 02/20/20 17:24 03/08/20 17:23 Amlodipine Besylate (Norvasc) 10 mg DAILY ORAL 02/21/20 09:00 03/17/20 08:59 02/22/20 09:37 Aspirin (ASA) 81 mg DAILY GT 02/21/20 09:00 03/27/20 08:59 02/22/20 09:37 Atorvastatin Calcium (Lipitor) 40 mg BEDTIME ORAL 02/20/20 21:00 04/29/20 20:59 02/21/20 22:21 Ceftriaxone Sodium 1 gm/ Dextrose 50 ml @ 100 mls/hr Q24H IVPB 02/20/20 17:30 02/27/20 17:29 02/21/20 17:25 Dextrose (Dextrose 50%) 25 ml Q30M PRN IV Hypoglycemia 02/20/20 17:30 04/29/20 18:59 Dextrose (Dextrose 50%) 50 ml Q30M PRN IV Hypoglycemia 02/20/20 17:30 04/29/20 18:59 Diphenhydramine HCl (Benadryl) 25 mg Q6H PRN ORAL Itching/Pruritis 02/20/20 17:27 03/10/20 17:26 Diphenoxylate HCl/ Atropine (Lomotil) 2.5 mg Q4H PRN GT Diarrhea 02/20/20 17:28 03/08/20 17:27 Fluconazole (Diflucan) 200 mg DAILY ORAL 02/21/20 09:00 02/28/20 08:59 02/22/20 09:37 Levothyroxine Sodium (Synthroid) 25 mcg DAILY@0630 ORAL 02/21/20 06:30 03/01/20 06:29 02/22/20 06:26 Linezolid (Zyvox) 600 mg EVERY 12 HOURS ORAL 02/20/20 21:00 02/25/20 20:59 02/22/20 09:37 Loperamide HCl (Imodium) 2 mg Q3H PRN NG Diarrhea 02/20/20 18:45 03/11/20 12:44 Metoprolol Tartrate (Lopressor) 50 mg Q12HR GT 02/20/20 21:00 05/13/20 08:59 02/22/20 09:38 Ondansetron HCl (Zofran) 4 mg Q6H PRN IVP Nausea & Vomiting 02/20/20 21:00 02/29/20 14:59 Last 24 Hour Vital Signs Date Time Temp Pulse Resp B/P (MAP) Pulse Ox O2 Delivery O2 Flow Rate FiO2 02/22/20 09:38 104 133/79 02/22/20 09:37 104 133/79 02/22/20 08:00 97.6 104 18 133/79 (97) 99 02/22/20 04:00 98.7 100 20 126/91 (103) 94 02/22/20 00:00 98.5 99 20 140/86 (104) 94 02/21/20 22:20 105 148/84 02/21/20 21:00 Room Air 02/21/20 20:00 98.6 110 20 148/84 (105) 95 02/21/20 16:00 97.7 105 20 128/71 (90) 96 02/21/20 12:00 97.5 98 18 134/82 (99) 99 02/21/20 09:11 109 155/82 02/21/20 09:10 109 155/82 02/21/20 09:00 Room Air 02/21/20 08:00 97.9 109 20 155/82 (106) 96 02/21/20 04:00 98.6 96 20 131/76 (94) 93 02/20/20 23:18 98.9 94 20 128/68 (88) 94 02/20/20 21:00 Room Air 02/20/20 20:34 100 121/67 02/20/20 20:00 98.4 100 20 121/67 (85) 100 02/20/20 16:00 97 02/20/20 12:00 93 Intake and Output 02/21/20 02/22/20 19:00 07:00 Intake Total 1440 ml 1000 ml Output Total 1400 ml 800 ml Balance 40 ml 200 ml Intake Oral 120 ml Free Water 600 ml 400 ml Tube Feeding 720 ml 600 ml Output Urine Total 1400 ml 800 ml # Voids 1 # Bowel Movements 2 3 Labs Test 02/20/20 06:19 02/21/20 05:45 02/22/20 05:25 White Blood Count 11.9 K/UL (4.8-10.8) 17.4 K/UL (4.8-10.8) 16.9 K/UL (4.8-10.8) Red Blood Count 2.99 M/UL (4.20-5.40) 4.02 M/UL (4.20-5.40) 3.72 M/UL (4.20-5.40) Hemoglobin 8.4 G/DL (12.0-16.0) 11.2 G/DL (12.0-16.0) 10.4 G/DL (12.0-16.0) Hematocrit 25.0 % (37.0-47.0) 33.4 % (37.0-47.0) 30.8 % (37.0-47.0) Mean Corpuscular Volume 84 FL (80-99) 83 FL (80-99) 83 FL (80-99) Mean Corpuscular Hemoglobin 28.3 PG (27.0-31.0) 27.8 PG (27.0-31.0) 27.8 PG (27.0-31.0) Mean Corpuscular Hemoglobin Concent 33.8 G/DL (32.0-36.0) 33.4 G/DL (32.0-36.0) 33.6 G/DL (32.0-36.0) Red Cell Distribution Width 14.3 % (11.6-14.8) 14.4 % (11.6-14.8) 17.4 % (11.6-14.8) Platelet Count 308 K/UL (150-450) 423 K/UL (150-450) 393 K/UL (150-450) Mean Platelet Volume 5.9 FL (6.5-10.1) 5.8 FL (6.5-10.1) 6.4 FL (6.5-10.1) Neutrophils (%) (Auto) 81.4 % (45.0-75.0) % (45.0-75.0) % (45.0-75.0) Lymphocytes (%) (Auto) 5.9 % (20.0-45.0) % (20.0-45.0) % (20.0-45.0) Monocytes (%) (Auto) 6.1 % (1.0-10.0) % (1.0-10.0) % (1.0-10.0) Eosinophils (%) (Auto) 5.6 % (0.0-3.0) % (0.0-3.0) % (0.0-3.0) Basophils (%) (Auto) 1.0 % (0.0-2.0) % (0.0-2.0) % (0.0-2.0) Sodium Level 139 MMOL/L (136-145) 140 MMOL/L (136-145) Potassium Level 4.2 MMOL/L (3.5-5.1) 4.1 MMOL/L (3.5-5.1) Chloride Level 106 MMOL/L (98-107) 103 MMOL/L (98-107) Carbon Dioxide Level 25 MMOL/L (21-32) 28 MMOL/L (21-32) Anion Gap 8 mmol/L (5-15) 10 mmol/L (5-15) Blood Urea Nitrogen 19 mg/dL (7-18) 19 mg/dL (7-18) Creatinine 0.9 MG/DL (0.55-1.30) 0.8 MG/DL (0.55-1.30) Estimat Glomerular Filtration Rate > 60 mL/min (>60) > 60 mL/min (>60) Glucose Level 107 MG/DL (74-106) 129 MG/DL (74-106) Calcium Level 8.2 MG/DL (8.5-10.1) 8.7 MG/DL (8.5-10.1) Differential Total Cells Counted 100 100 Neutrophils % (Manual) 89 % (45-75) 86 % (45-75) Lymphocytes % (Manual) 5 % (20-45) 10 % (20-45) Monocytes % (Manual) 4 % (1-10) 3 % (1-10) Eosinophils % (Manual) 2 % (0-3) 1 % (0-3) Basophils % (Manual) 0 % (0-2) 0 % (0-2) Band Neutrophils 0 % (0-8) 0 % (0-8) Nucleated Red Blood Cells 1 /100 WBC Platelet Estimate Adequate Adequate Platelet Morphology Normal Normal Hypochromasia 1+ Anisocytosis 1+ 1+ Erythrocyte Sedimentation Rate 98 MM/HR (0-30) Total Bilirubin 0.2 MG/DL (0.2-1.0) Aspartate Amino Transf (AST/SGOT) 28 U/L (15-37) Alanine Aminotransferase (ALT/SGPT) 21 U/L (12-78) Alkaline Phosphatase 152 U/L (46-116) C-Reactive Protein, Quantitative 10.6 mg/dL (0.00-0.90) Total Protein 7.2 G/DL (6.4-8.2) Albumin 1.5 G/DL (3.4-5.0) Globulin 5.7 g/dL Albumin/Globulin Ratio 0.3 (1.0-2.7) Height (Feet): 5 Height (Inches): 1.00 Weight (Pounds): 127 Objective Review of Systems: negative Physical Exam Vitals: reviewed General Appearance: other - Contracted elderly female nonverbal Head: normocephalic, atraumatic Neck: full range of motion, supple Resp: chest non-tender, lungs clear, speaking full sentences Cardiovascular: tachycardia Gi: non tender, soft, GT+ Gu: Tovar catheter in place Psychiatric: nonverbal Skin: no rash Fermin Baum MD Feb 22, 2020 11:10
[2020-02-22 12:00] VITALS: BP 130/75
--- NOTE | 2020-02-22 12:08 | Nephrology Progress Note ---
Assessment/Plan Plan #hypernatremia due to free water deficit of close to 3L-improved #sepsis due to Citrobacter bacteremia and pyelonephritis #h/o CVA with hemiplegia #DM #COPD # hyperlipidemia #hypothyroidism # GERD # unspecified CHF, S/p PPM # possible hydronephrosis on CT -> monitor off IVF -> monitor for ANGELICA _> CT abd/pelvis w con done on 02/14- s/p left ureteral stent 02/18 - amlodipine 10mg daily - decreased free water flushes to 150 q6hr - monitor bmp daily - continue abx - avoid nephrotoxins - strict I&Os - daily weights - monitor lytes - urology eval -CT abd/pelvis w con done on 02/14- - monitor Cr closely Subjective Subjective CT abd/pelvis w con done on 02/14- s/p left ureteral stent 02/18 WBC remains elevated renal function and electrolytes stable Renal US: Impression: Moderate to severe left hydronephrosis versus parapelvic cysts mimicking hydronephrosis, versus combination of both. This also described on recent CT scan Atrophic right kidney. Mild right renal collecting system fullness, significance/etiology uncertain Objective Objective Last 24 Hour Vital Signs Date Time Temp Pulse Resp B/P (MAP) Pulse Ox O2 Delivery O2 Flow Rate FiO2 02/22/20 09:38 104 133/79 02/22/20 09:37 104 133/79 02/22/20 08:00 97.6 104 18 133/79 (97) 99 02/22/20 04:00 98.7 100 20 126/91 (103) 94 02/22/20 00:00 98.5 99 20 140/86 (104) 94 02/21/20 22:20 105 148/84 02/21/20 21:00 Room Air 02/21/20 20:00 98.6 110 20 148/84 (105) 95 02/21/20 16:00 97.7 105 20 128/71 (90) 96 Intake and Output 02/21/20 02/22/20 19:00 07:00 Intake Total 1440 ml 1000 ml Output Total 1400 ml 800 ml Balance 40 ml 200 ml Intake Oral 120 ml Free Water 600 ml 400 ml Tube Feeding 720 ml 600 ml Output Urine Total 1400 ml 800 ml # Voids 1 # Bowel Movements 2 3 Laboratory Tests 02/22/20 05:25: White Blood Count 16.9H, Red Blood Count 3.72L, Hemoglobin 10.4L, Hematocrit 30.8L, Mean Corpuscular Volume 83, Mean Corpuscular Hemoglobin 27.8, Mean Corpuscular Hemoglobin Concent 33.6, Red Cell Distribution Width 17.4H, Platelet Count 393, Mean Platelet Volume 6.4L, Neutrophils (%) (Auto) , Lymphocytes (%) (Auto) , Monocytes (%) (Auto) , Eosinophils (%) (Auto) , Basophils (%) (Auto) , Differential Total Cells Counted 100, Neutrophils % ( Manual) 86H, Lymphocytes % (Manual) 10L, Monocytes % (Manual) 3, Eosinophils % ( Manual) 1, Basophils % (Manual) 0, Band Neutrophils 0, Platelet Estimate Adequate, Platelet Morphology Normal, Anisocytosis 1+ Height (Feet): 5 Height (Inches): 1.00 Weight (Pounds): 127 Objective General Appearance: NAD, otherwise awake, alert, confused Neck: normal alignment, supple CV: RRR Respiratory: lungs clear, normal breath sounds, no respiratory distress Abdomen: non tender, soft, +PEG tube, c/d/i Ext: Contracted bilaterally, multiple abrasions wrapped in bandages C/D/I Cathy Fuller M.D. Feb 22, 2020 12:08
--- NOTE | 2020-02-22 12:16 | General Progress Note ---
Assessment/Plan Status: stable Assessment/Plan: 84 year old woman with history of CVA, hemiplegia, DM, COPD, CKD, hyperlipidemia , hypothyroidism, GERD, unspecified CHF, S/p PPM brought in from SNF with hypotension, found to be septic with leukocytosis and minimal pyuria #Sepsis #Citrobacter bacteremia #Enterococcus/VRE UTI #Yeast UTI #Left Hydronephrosis #Leukocytosis - WBC remains 17K today #Hypotension - resolved #Elevated lactate - resolved #diarrhea - improved #Fever - resolved -continue inpatient level of care, cardiac monitoring -COVID 19 negative -01/29 BCx +citrobacter, repeat on 02/02 BCx negative -c diff negative on 02/03, 02/14 -Cont.imodium, lomotil per ID -pt w/fever on 02/10: BCx NGTD -02/10: UCx + enterococcus/VRE -02/13 BCx w/GPC in pairs -CT A/p and renal US reviewed -CT abd/pel w/contrast 02/14: Evidence of left renal infection/UTI/Mathew with perinephric stranding, left hydronephrosis, duplicated left renal collecting system, atrophic right kidney -Continue IV abx as per ID recs x 3 more days -Repeat CBC tomorrow -S/p cysto with left sided ureteral stent placement 02/17 #NSTEMI #HTN #HLD #Elevated BNP #S/p PPM, [facility] DDD #Sinus tachycardia -Echo 02/10: EF 40-45% -PPM interrogated: sinus tach -trop peak 31>> 8 >> 2.23 -monitor closely for evidence of fluid overload -cont. home amlodipine 10 mg -cont. medical management ASA, lipitor -lopressor 50 BID w/hold parameters -EP, Dr. Corley, following -Cardio, Dr. Crain, following: no indication for cath at this time #Hypernatremia - resolved #Hyponatremia #Unspecified CKD #One Kidney -monitor renal function -FWF per nephro -Nephro following, recs appreciated #anemia #Thrombocytosis -downtrending, likely 2/2 to infectious process -cont. to monitor -no signs of bleeding -s/p 1 U PRBC on 02/16/20 -Heme, Dr. Baum, following, recs appreciated #Hypothyroidism -TSH normal -cont levothyroxine #Decubitus Ulcer -Wound care following, appreciate recs #Dementia #h/o CVA -AOx1 at b/l -supportive care, monitor mentation -fall precautions, aspiration precautions -PT/OT/STREET [employer] -Frequent orienting -Neurology following: recs appreciated I spent 35 minutes on this patient's case, and >50% was dedicated to counseling and/or care coordination which includes discussions with ID physician, RN and case management associate. Subjective Date patient seen: Feb 22, 2020 Time patient seen: 12:12 ROS Limited/Unobtainable: Yes Allergies: Coded Allergies: No Known Allergies (Unverified , 01/30/20) Subjective Follow up for sepsis, Citrobacter bacteremia, pyelonephritis Underwent cystoscopy with left sided ureteral stent placement on 02/17 WBC remains elevated at 17K Objective Last 24 Hour Vital Signs Date Time Temp Pulse Resp B/P (MAP) Pulse Ox O2 Delivery O2 Flow Rate FiO2 02/22/20 09:38 104 133/79 02/22/20 09:37 104 133/79 02/22/20 08:00 97.6 104 18 133/79 (97) 99 02/22/20 04:00 98.7 100 20 126/91 (103) 94 02/22/20 00:00 98.5 99 20 140/86 (104) 94 02/21/20 22:20 105 148/84 02/21/20 21:00 Room Air 02/21/20 20:00 98.6 110 20 148/84 (105) 95 02/21/20 16:00 97.7 105 20 128/71 (90) 96 Intake and Output 02/21/20 02/22/20 19:00 07:00 Intake Total 1440 ml 1000 ml Output Total 1400 ml 800 ml Balance 40 ml 200 ml Intake Oral 120 ml Free Water 600 ml 400 ml Tube Feeding 720 ml 600 ml Output Urine Total 1400 ml 800 ml # Voids 1 # Bowel Movements 2 3 Laboratory Tests 02/22/20 05:25: White Blood Count 16.9H, Red Blood Count 3.72L, Hemoglobin 10.4L, Hematocrit 30.8L, Mean Corpuscular Volume 83, Mean Corpuscular Hemoglobin 27.8, Mean Corpuscular Hemoglobin Concent 33.6, Red Cell Distribution Width 17.4H, Platelet Count 393, Mean Platelet Volume 6.4L, Neutrophils (%) (Auto) , Lymphocytes (%) (Auto) , Monocytes (%) (Auto) , Eosinophils (%) (Auto) , Basophils (%) (Auto) , Differential Total Cells Counted 100, Neutrophils % ( Manual) 86H, Lymphocytes % (Manual) 10L, Monocytes % (Manual) 3, Eosinophils % ( Manual) 1, Basophils % (Manual) 0, Band Neutrophils 0, Platelet Estimate Adequate, Platelet Morphology Normal, Anisocytosis 1+ Height (Feet): 5 Height (Inches): 1.00 Weight (Pounds): 127 General Appearance: alert, confused Neck: supple Cardiovascular: normal rate, regular rhythm Respiratory/Chest: lungs clear, normal breath sounds Abdomen: non tender, soft Carmine Major MD Feb 22, 2020 12:16
--- NOTE | 2020-02-22 14:19 | Cardiac Electrophysiology PN ---
Assessment/Plan Assessment/Plan 1. Status post R. [facility] DDD pacer implantation with Nl Fx 2. Acute NSTEMI with peak troponin 31. Down to 2. Non verbal. Continue aspirin, Lopressor 50 nid and Lipitor. Echo on 02/11/20 EF 40-45% 3. Diabetes. 4. Hypertension, on Toprol 50 bid and Norvasc 10 daily 5. Status post septic shock with WBC 27 K. Improved on iv Abx per Dr. Naylor 6. Severe anemia. Hemoglobin improved from 7.5 to 9.4. 7. Dementia. 8. CVA. 10. COPD. 11. ARF and hydronephrosis, Cr now normal. S/P ureteral stent placement on 02/18/20 12. S/P PEG placement. LAKIA RN Subjective Subjective Nonverbal but alert and responsive in NAD. No events S/P ureteral stent placement by Dr. Leos on 02/18/20. Objective Last 24 Hour Vital Signs Date Time Temp Pulse Resp B/P (MAP) Pulse Ox O2 Delivery O2 Flow Rate FiO2 02/22/20 12:00 97.9 92 17 130/75 (93) 93 02/22/20 09:38 104 133/79 02/22/20 09:37 104 133/79 02/22/20 08:00 97.6 104 18 133/79 (97) 99 02/22/20 04:00 98.7 100 20 126/91 (103) 94 02/22/20 00:00 98.5 99 20 140/86 (104) 94 02/21/20 22:20 105 148/84 02/21/20 21:00 Room Air 02/21/20 20:00 98.6 110 20 148/84 (105) 95 02/21/20 16:00 97.7 105 20 128/71 (90) 96 Intake and Output 02/21/20 02/22/20 19:00 07:00 Intake Total 1440 ml 1000 ml Output Total 1400 ml 800 ml Balance 40 ml 200 ml Intake Oral 120 ml Free Water 600 ml 400 ml Tube Feeding 720 ml 600 ml Output Urine Total 1400 ml 800 ml # Voids 1 # Bowel Movements 2 3 Laboratory Tests Test 02/22/20 05:25 White Blood Count 16.9 K/UL (4.8-10.8) H Red Blood Count 3.72 M/UL (4.20-5.40) L Hemoglobin 10.4 G/DL (12.0-16.0) L Hematocrit 30.8 % (37.0-47.0) L Mean Corpuscular Volume 83 FL (80-99) Mean Corpuscular Hemoglobin 27.8 PG (27.0-31.0) Mean Corpuscular Hemoglobin Concent 33.6 G/DL (32.0-36.0) Red Cell Distribution Width 17.4 % (11.6-14.8) H Platelet Count 393 K/UL (150-450) Mean Platelet Volume 6.4 FL (6.5-10.1) L Neutrophils (%) (Auto) % (45.0-75.0) Lymphocytes (%) (Auto) % (20.0-45.0) Monocytes (%) (Auto) % (1.0-10.0) Eosinophils (%) (Auto) % (0.0-3.0) Basophils (%) (Auto) % (0.0-2.0) Differential Total Cells Counted 100 Neutrophils % (Manual) 86 % (45-75) H Lymphocytes % (Manual) 10 % (20-45) L Monocytes % (Manual) 3 % (1-10) Eosinophils % (Manual) 1 % (0-3) Basophils % (Manual) 0 % (0-2) Band Neutrophils 0 % (0-8) Platelet Estimate Adequate Platelet Morphology Normal Anisocytosis 1+ Microbiology Date/Time Source Procedure Growth Status 02/20/20 18:10 Blood Blood Culture - Preliminary NO GROWTH AFTER 24 HOURS Resulted 02/20/20 18:00 Blood Blood Culture - Preliminary NO GROWTH AFTER 24 HOURS Resulted Objective HEAD AND NECK: Shows no JVD. LUNGS: Coarse rhonchi. CARDIOVASCULAR: Regular S1 and S2. Pacemaker is in the right subclavian. ABDOMEN: Soft.PEG in place. Has john EXTREMITIES: Contracted. Oscar Corley MD Feb 22, 2020 14:19
--- NOTE | 2020-02-22 14:38 | Infectious Diseases Prog Note ---
Assessment/Plan Assessment/Plan A) 1) citrobacter bacteremia, vre/enterococcus uti with enterococcus/vre bacteremia , source, sepsis, leukocytosis fungemia risk - f/u CT noted, c/w hydronephrosis and pyelonephritis - s/p stent placement - c.diff. - negative - leukocytosis worse overall 2) covid testing - negative 3) dm, hyperlipidemia, ? htn, hypothyroidism, cva, anemia, hemiplegia, ckd, gerd , copd, chf, ppm 4) allergies - nkda, fh-nc, sh-negative, mar noted, notes and records noted 5) d/w RN P) 1) rocephin, diflucan and zyvox x 3 days 2) monitor labs, reculture patient secondary to worsening leukocytosis, check f/ u chest x-ray 3) s/p stent 4) leukocytosis better 5) will f/u Subjective Constitutional: Denies: fever HEENT: Denies: congestion Respiratory: Denies: shortness of breath Cardiovascular: Denies: chest pain Gastrointestinal/Abdominal: Denies: nausea, vomiting, diarrhea Genitourinary: Reports: other - + john - urine slt cloudy Neurologic: Denies: headache Psychiatric: Denies: depression Skin: Denies: rash Hematologic: Denies: bleeding Musculoskeletal: Denies: pain Allergies: Coded Allergies: No Known Allergies (Unverified , 01/30/20) Objective Vital Signs Last 24 Hour Vital Signs Date Time Temp Pulse Resp B/P (MAP) Pulse Ox O2 Delivery O2 Flow Rate FiO2 02/22/20 12:00 97.9 92 17 130/75 (93) 93 02/22/20 09:38 104 133/79 02/22/20 09:37 104 133/79 02/22/20 08:00 97.6 104 18 133/79 (97) 99 02/22/20 04:00 98.7 100 20 126/91 (103) 94 02/22/20 00:00 98.5 99 20 140/86 (104) 94 02/21/20 22:20 105 148/84 02/21/20 21:00 Room Air 02/21/20 20:00 98.6 110 20 148/84 (105) 95 02/21/20 16:00 97.7 105 20 128/71 (90) 96 Height (Feet): 5 Height (Inches): 1.00 Weight (Pounds): 127 General Appearance: no acute distress HEENT: normocephalic, atraumatic, anicteric, mucous membranes moist Respiratory/Chest: lungs clear, normal breath sounds, no respiratory distress, no accessory muscle use Cardiovascular: normal rate, regular rhythm, no gallop/murmur, no JVD Abdomen: normal bowel sounds, no organomegaly, non distended Genitourinary: other - + john - urine slt cloudy Extremities: no cyanosis Skin: no rash 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 The heart size is normal. There is a right chest biventricular pacemaker Impression: No acute process CT abdomen and pelvis: IMPRESSION: 1. Examination is limited by motion artifact. 2. Trace left pleural effusion. 3. Severe left hydronephrosis versus parapelvic cysts. No definite obstructing stone. 4. Mild bladder wall thickening with small gas foci in the bladder, concerning for cystitis. Please correlate with urinalysis. CT ABDOMEN + PELVIS With Contrast: Prior 02/09/2020 Impression -Small bilateral pleural effusions with passive atelectasis and lung base motion artifact. -Pacer device leads in the heart. -John catheter in the decompressed urinary bladder. - No urolithiasis seen. -Consider left renal collecting system infection/UTI/pyelonephritis in the proper context given moderate left perinephric stranding which is asymmetric compared with the right. -Similar to prior study left inferior renal moiety moderate hydronephrosis without visualized cause. 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 -If there is further desire to evaluate collecting system dilation, consider repeating the study with CT hematuria protocol. -Sacral decubitus ulcer, correlate with presentation. - Rapid transit of contrast through the GI tract could be incidental or could be seen with an infectious or inflammatory enteritis. -Indeterminate left adrenal 2.1 cm enhancing nodule, if felt to alter clinical management consider additional evaluation adrenal gland. CONSIDER correlation with prior imaging studies. -Right renal cortical scarring due to old infectious or ischemic insults. -Atherosclerotic vascular disease. - Hysterectomy. -Unchanged osteopenia and degenerative spine findings. Unchanged old right possible lesser trochanter fracture versus extensive right hip capsular calcifications. Procedure: XRAY Chest 1v - 02/15/20- Indication: Dyspnea Comparison: 02/11/2020 A single view chest radiograph was obtained. Findings: No definite infiltrate or pulmonary vascular congestion identified. The heart is enlarged. The aorta is mildly enlarged consistent with atherosclerotic vascular disease. The bones are osteopenic. There are thoracic vertebral enthesophytes at multiple levels. Pacemaker noted on the right. Impression: No acute disease Microbiology Date/Time Source Procedure Growth Status 02/20/20 18:10 Blood Blood Culture - Preliminary NO GROWTH AFTER 24 HOURS Resulted 01/30/20 15:45 Nasal Nares MRSA Culture - Final NO METHICILLIN RESISTANT STAPH AUREUS... Complete 02/15/20 06:00 Stool Clostridium difficile Toxin Assay - Final Complete 02/18/20 14:51 Urine,Ureter/Kidney Urine Culture - Final NO GROWTH AFTER 48 HOURS Complete 01/30/20 15:45 Rectum VRE Culture - Final NO VANCOMYCIN RESISTANT ENTEROCOCCUS ... Complete Microbiology Date/Time Source Procedure Growth Status 02/20/20 18:10 Blood Blood Culture - Preliminary NO GROWTH AFTER 24 HOURS Resulted 02/20/20 18:00 Blood Blood Culture - Preliminary NO GROWTH AFTER 24 HOURS Resulted Labs Test 02/20/20 06:19 02/21/20 05:45 02/22/20 05:25 White Blood Count 11.9 K/UL (4.8-10.8) 17.4 K/UL (4.8-10.8) 16.9 K/UL (4.8-10.8) Red Blood Count 2.99 M/UL (4.20-5.40) 4.02 M/UL (4.20-5.40) 3.72 M/UL (4.20-5.40) Hemoglobin 8.4 G/DL (12.0-16.0) 11.2 G/DL (12.0-16.0) 10.4 G/DL (12.0-16.0) Hematocrit 25.0 % (37.0-47.0) 33.4 % (37.0-47.0) 30.8 % (37.0-47.0) Mean Corpuscular Volume 84 FL (80-99) 83 FL (80-99) 83 FL (80-99) Mean Corpuscular Hemoglobin 28.3 PG (27.0-31.0) 27.8 PG (27.0-31.0) 27.8 PG (27.0-31.0) Mean Corpuscular Hemoglobin Concent 33.8 G/DL (32.0-36.0) 33.4 G/DL (32.0-36.0) 33.6 G/DL (32.0-36.0) Red Cell Distribution Width 14.3 % (11.6-14.8) 14.4 % (11.6-14.8) 17.4 % (11.6-14.8) Platelet Count 308 K/UL (150-450) 423 K/UL (150-450) 393 K/UL (150-450) Mean Platelet Volume 5.9 FL (6.5-10.1) 5.8 FL (6.5-10.1) 6.4 FL (6.5-10.1) Neutrophils (%) (Auto) 81.4 % (45.0-75.0) % (45.0-75.0) % (45.0-75.0) Lymphocytes (%) (Auto) 5.9 % (20.0-45.0) % (20.0-45.0) % (20.0-45.0) Monocytes (%) (Auto) 6.1 % (1.0-10.0) % (1.0-10.0) % (1.0-10.0) Eosinophils (%) (Auto) 5.6 % (0.0-3.0) % (0.0-3.0) % (0.0-3.0) Basophils (%) (Auto) 1.0 % (0.0-2.0) % (0.0-2.0) % (0.0-2.0) Sodium Level 139 MMOL/L (136-145) 140 MMOL/L (136-145) Potassium Level 4.2 MMOL/L (3.5-5.1) 4.1 MMOL/L (3.5-5.1) Chloride Level 106 MMOL/L (98-107) 103 MMOL/L (98-107) Carbon Dioxide Level 25 MMOL/L (21-32) 28 MMOL/L (21-32) Anion Gap 8 mmol/L (5-15) 10 mmol/L (5-15) Blood Urea Nitrogen 19 mg/dL (7-18) 19 mg/dL (7-18) Creatinine 0.9 MG/DL (0.55-1.30) 0.8 MG/DL (0.55-1.30) Estimat Glomerular Filtration Rate > 60 mL/min (>60) > 60 mL/min (>60) Glucose Level 107 MG/DL (74-106) 129 MG/DL (74-106) Calcium Level 8.2 MG/DL (8.5-10.1) 8.7 MG/DL (8.5-10.1) Differential Total Cells Counted 100 100 Neutrophils % (Manual) 89 % (45-75) 86 % (45-75) Lymphocytes % (Manual) 5 % (20-45) 10 % (20-45) Monocytes % (Manual) 4 % (1-10) 3 % (1-10) Eosinophils % (Manual) 2 % (0-3) 1 % (0-3) Basophils % (Manual) 0 % (0-2) 0 % (0-2) Band Neutrophils 0 % (0-8) 0 % (0-8) Nucleated Red Blood Cells 1 /100 WBC Platelet Estimate Adequate Adequate Platelet Morphology Normal Normal Hypochromasia 1+ Anisocytosis 1+ 1+ Erythrocyte Sedimentation Rate 98 MM/HR (0-30) Total Bilirubin 0.2 MG/DL (0.2-1.0) Aspartate Amino Transf (AST/SGOT) 28 U/L (15-37) Alanine Aminotransferase (ALT/SGPT) 21 U/L (12-78) Alkaline Phosphatase 152 U/L (46-116) C-Reactive Protein, Quantitative 10.6 mg/dL (0.00-0.90) Total Protein 7.2 G/DL (6.4-8.2) Albumin 1.5 G/DL (3.4-5.0) Globulin 5.7 g/dL Albumin/Globulin Ratio 0.3 (1.0-2.7) Laboratory Tests Test 02/22/20 05:25 White Blood Count 16.9 K/UL (4.8-10.8) H Red Blood Count 3.72 M/UL (4.20-5.40) L Hemoglobin 10.4 G/DL (12.0-16.0) L Hematocrit 30.8 % (37.0-47.0) L Mean Corpuscular Volume 83 FL (80-99) Mean Corpuscular Hemoglobin 27.8 PG (27.0-31.0) Mean Corpuscular Hemoglobin Concent 33.6 G/DL (32.0-36.0) Red Cell Distribution Width 17.4 % (11.6-14.8) H Platelet Count 393 K/UL (150-450) Mean Platelet Volume 6.4 FL (6.5-10.1) L Neutrophils (%) (Auto) % (45.0-75.0) Lymphocytes (%) (Auto) % (20.0-45.0) Monocytes (%) (Auto) % (1.0-10.0) Eosinophils (%) (Auto) % (0.0-3.0) Basophils (%) (Auto) % (0.0-2.0) Differential Total Cells Counted 100 Neutrophils % (Manual) 86 % (45-75) H Lymphocytes % (Manual) 10 % (20-45) L Monocytes % (Manual) 3 % (1-10) Eosinophils % (Manual) 1 % (0-3) Basophils % (Manual) 0 % (0-2) Band Neutrophils 0 % (0-8) Platelet Estimate Adequate Platelet Morphology Normal Anisocytosis 1+ Current Medications Medications (Trade) Dose Ordered Sig/Moreno Route PRN Reason Start Time Stop Time Status Last Admin Dose Admin Acetaminophen (Tylenol) 650 mg Q4H PRN GT MILD/TEMP 02/20/20 17:24 03/08/20 17:23 Amlodipine Besylate (Norvasc) 10 mg DAILY ORAL 02/21/20 09:00 03/17/20 08:59 02/22/20 09:37 Aspirin (ASA) 81 mg DAILY GT 02/21/20 09:00 03/27/20 08:59 02/22/20 09:37 Atorvastatin Calcium (Lipitor) 40 mg BEDTIME ORAL 02/20/20 21:00 04/29/20 20:59 02/21/20 22:21 Ceftriaxone Sodium 1 gm/ Dextrose 50 ml @ 100 mls/hr Q24H IVPB 02/20/20 17:30 02/27/20 17:29 02/21/20 17:25 Dextrose (Dextrose 50%) 25 ml Q30M PRN IV Hypoglycemia 02/20/20 17:30 04/29/20 18:59 Dextrose (Dextrose 50%) 50 ml Q30M PRN IV Hypoglycemia 02/20/20 17:30 04/29/20 18:59 Diphenhydramine HCl (Benadryl) 25 mg Q6H PRN ORAL Itching/Pruritis 02/20/20 17:27 03/10/20 17:26 Diphenoxylate HCl/ Atropine (Lomotil) 2.5 mg Q4H PRN GT Diarrhea 02/20/20 17:28 03/08/20 17:27 Fluconazole (Diflucan) 200 mg DAILY ORAL 02/21/20 09:00 02/28/20 08:59 02/22/20 09:37 Levothyroxine Sodium (Synthroid) 25 mcg DAILY@0630 ORAL 02/21/20 06:30 03/01/20 06:29 02/22/20 06:26 Linezolid (Zyvox) 600 mg EVERY 12 HOURS ORAL 02/20/20 21:00 02/25/20 20:59 02/22/20 09:37 Loperamide HCl (Imodium) 2 mg Q3H PRN NG Diarrhea 02/20/20 18:45 03/11/20 12:44 Metoprolol Tartrate (Lopressor) 50 mg Q12HR GT 02/20/20 21:00 05/13/20 08:59 02/22/20 09:38 Ondansetron HCl (Zofran) 4 mg Q6H PRN IVP Nausea & Vomiting 02/20/20 21:00 02/29/20 14:59 Abiodun Jacobo MD Feb 22, 2020 14:38
[2020-02-22 16:00] VITALS: BP 130/75
[2020-02-22 16:09] LABS: ALANINE AMINOTRANSFERASE 27 U/L (12-78); ALBUMIN 1.7 G/DL (3.4-5.0); ALBUMIN/GLOBULIN RATIO 0.3 (1.0-2.7); ALKALINE PHOSPHATASE 159 U/L (46-116); ANION GAP 10 mmol/L (5-15); ASPARTATE AMINO TRANSFERASE 34 U/L (15-37); BILIRUBIN,TOTAL 0.2 MG/DL (0.2-1.0); BLOOD UREA NITROGEN 23 mg/dL (7-18); CALCIUM 8.5 MG/DL (8.5-10.1); CARBON DIOXIDE 27 MMOL/L (21-32); CHLORIDE 103 MMOL/L (98-107); CREATININE 0.8 MG/DL (0.55-1.30); POTASSIUM 4.8 MMOL/L (3.5-5.1); SODIUM 140 MMOL/L (136-145)
[2020-02-22 16:14] LABS: BASOPHILS % (AUTO) 0.8 % (0.0-2.0); HEMATOCRIT 34.9 % (37.0-47.0); HEMOGLOBIN 11.4 G/DL (12.0-16.0); LYMPHOCYTES % (AUTO) 9.6 % (20.0-45.0); MEAN CORPUSCULAR VOLUME 85 FL (80-99); MONOCYTES % (AUTO) 3.3 % (1.0-10.0); NEUTROPHILS % (AUTO) 84.3 % (45.0-75.0); PLATELET COUNT 314 K/UL (150-450); RED CELL DISTRIBUTION WIDTH 16.3 % (11.6-14.8); WHITE BLOOD COUNT 15.9 K/UL (4.8-10.8)
--- NOTE | 2020-02-22 16:32 | Surgery Progress Note ---
Surgery Progress Note Subjective Additional Comments wbc trending down h/h stable no acute events dressing changes going well comfortable appearing Objective Last 24 Hour Vital Signs Date Time Temp Pulse Resp B/P (MAP) Pulse Ox O2 Delivery O2 Flow Rate FiO2 02/22/20 12:00 97.9 92 17 130/75 (93) 93 02/22/20 09:38 104 133/79 02/22/20 09:37 104 133/79 02/22/20 08:00 97.6 104 18 133/79 (97) 99 02/22/20 04:00 98.7 100 20 126/91 (103) 94 02/22/20 00:00 98.5 99 20 140/86 (104) 94 02/21/20 22:20 105 148/84 02/21/20 21:00 Room Air 02/21/20 20:00 98.6 110 20 148/84 (105) 95 I&O Intake and Output 02/21/20 02/22/20 18:59 06:59 Intake Total 1440 ml 1060 ml Output Total 1400 ml 800 ml Balance 40 ml 260 ml Intake Oral 120 ml Free Water 600 ml 400 ml Tube Feeding 720 ml 660 ml Output Urine Total 1400 ml 800 ml # Voids 1 # Bowel Movements 2 3 Dressing: saturated Wound: clean Cardiovascular: RSR Respiratory: decreased breath sounds Abdomen: soft, non-tender, present bowel sounds Extremities: no tenderness, no cyanosis Laboratory Tests Test 02/22/20 05:25 02/22/20 15:35 White Blood Count 16.9 K/UL (4.8-10.8) H 15.9 K/UL (4.8-10.8) H Red Blood Count 3.72 M/UL (4.20-5.40) L 4.10 M/UL (4.20-5.40) L Hemoglobin 10.4 G/DL (12.0-16.0) L 11.4 G/DL (12.0-16.0) L Hematocrit 30.8 % (37.0-47.0) L 34.9 % (37.0-47.0) L Mean Corpuscular Volume 83 FL (80-99) 85 FL (80-99) Mean Corpuscular Hemoglobin 27.8 PG (27.0-31.0) 27.7 PG (27.0-31.0) Mean Corpuscular Hemoglobin Concent 33.6 G/DL (32.0-36.0) 32.6 G/DL (32.0-36.0) Red Cell Distribution Width 17.4 % (11.6-14.8) H 16.3 % (11.6-14.8) H Platelet Count 393 K/UL (150-450) 314 K/UL (150-450) Mean Platelet Volume 6.4 FL (6.5-10.1) L 7.1 FL (6.5-10.1) Neutrophils (%) (Auto) % (45.0-75.0) 84.3 % (45.0-75.0) H Lymphocytes (%) (Auto) % (20.0-45.0) 9.6 % (20.0-45.0) L Monocytes (%) (Auto) % (1.0-10.0) 3.3 % (1.0-10.0) Eosinophils (%) (Auto) % (0.0-3.0) 2.0 % (0.0-3.0) Basophils (%) (Auto) % (0.0-2.0) 0.8 % (0.0-2.0) Differential Total Cells Counted 100 Neutrophils % (Manual) 86 % (45-75) H Lymphocytes % (Manual) 10 % (20-45) L Monocytes % (Manual) 3 % (1-10) Eosinophils % (Manual) 1 % (0-3) Basophils % (Manual) 0 % (0-2) Band Neutrophils 0 % (0-8) Platelet Estimate Adequate Platelet Morphology Normal Anisocytosis 1+ Sodium Level 140 MMOL/L (136-145) Potassium Level 4.8 MMOL/L (3.5-5.1) Chloride Level 103 MMOL/L (98-107) Carbon Dioxide Level 27 MMOL/L (21-32) Anion Gap 10 mmol/L (5-15) Blood Urea Nitrogen 23 mg/dL (7-18) H Creatinine 0.8 MG/DL (0.55-1.30) Estimat Glomerular Filtration Rate > 60 mL/min (>60) Glucose Level 120 MG/DL (74-106) H Calcium Level 8.5 MG/DL (8.5-10.1) Total Bilirubin 0.2 MG/DL (0.2-1.0) Aspartate Amino Transf (AST/SGOT) 34 U/L (15-37) Alanine Aminotransferase (ALT/SGPT) 27 U/L (12-78) Alkaline Phosphatase 159 U/L (46-116) H Total Protein 6.8 G/DL (6.4-8.2) Albumin 1.7 G/DL (3.4-5.0) L Globulin 5.1 g/dL Albumin/Globulin Ratio 0.3 (1.0-2.7) L Plan Problems: (1) Septic shock Assessment & Plan: Patient presented to emergency department with sepsis hypotension tachycardia lactic acidosis leukocytosis. On IV antibiotics Labs improving IV hydration Continue tube feeds advance goal as tolerated Abdominal exam does elicit patient to retract a bit but she is not tender peritonitis or without rebound or significant guarding. exam improved Likely startle effect rather than intra-abdominal pathology will follow with serial exams continue with current care plan thank you for let me participate in patient's care leukocytosis. c diff negative. blood cultures noted abx as per ID Severe left hydronephrosis versus parapelvic cysts. No definite obstructing stone. Mild bladder wall thickening with small gas foci in the bladder, concerning for cystitis. Please correlate with urinalysis. Acute NSTEMI with peak troponin 31 as per cardiology wbc fever micro worsening leukocytosis improving labs improved downgraded exam stable labs ordered -Small bilateral pleural effusions with passive atelectasis and lung base motion artifact. -Pacer device leads in the heart. -Tovar catheter in the decompressed urinary bladder. - No urolithiasis seen. -Consider left renal collecting system infection/UTI/pyelonephritis in the proper context given moderate left perinephric stranding which is asymmetric compared with the right. -Similar to prior study left inferior renal moiety moderate hydronephrosis without visualized cause. 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 -If there is further desire to evaluate collecting system dilation, consider repeating the study with CT hematuria protocol. -Sacral decubitus ulcer, correlate with presentation. - Rapid transit of contrast through the GI tract could be incidental or could be seen with an infectious or inflammatory enteritis. -Indeterminate left adrenal 2.1 cm enhancing nodule, if felt to alter clinical management consider additional evaluation adrenal gland. CONSIDER correlation with prior imaging studies. -Right renal cortical scarring due to old infectious or ischemic insults. -Atherosclerotic vascular disease. - Hysterectomy. -Unchanged osteopenia and degenerative spine findings. Unchanged old right possible lesser trochanter fracture versus extensive right hip capsular calcifications. 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 The lower pole collecting system is markedly hydronephrotic. The upper pole collecting system is normal in appearance. There is inflammatory change surrounding the lower pole of the left kidney, with some fluid tracking caudad along Gerota's fascia. There is either a cyst or dilated calyx in the left lower pole, suspect the latter as this appears to communicate with the collecting system along the anterior border of the kidney, best visualized on the sagittal reconstructed images. No obstructing stone or mass is demonstrated. There is no hydroureter. The upper pole collecting system is nondilated. There is probably only a single left ureter, but this cannot be stated for certain. The right kidney demonstrates subcentimeter low-attenuation lesions which are too small to characterize, most likely benign simple cysts. There is a Tovar catheter within the bladder, which contains some gas presumably related to the Tovar catheterization. There are retrococcygeal decubitus changes and suspicion for some ulceration. This is more evident than on the prior exam. No definite osseous destruction. The liver, gallbladder, bile ducts, pancreas, spleen, adrenals are unremarkable. No retroperitoneal or mesenteric mass or adenopathy. No pelvic mass or adenopathy. The uterus is absent. Ingested contrast has reached the distal colon, and there is some evidence of rectal fecal incontinence. No evidence of colonic diverticulosis or diverticulitis. The appendix is normal. No small bowel distention. No small bowel wall thickening. There is a small amount of free pelvic fluid. Distal esophagus is unremarkable. The stomach contains a gastrostomy which appears to be well positioned. Fairly extensive chronic degenerative changes are seen about both hips. There is some infiltration of the subcutaneous fat in the bilateral neck regions which is nonspecific. There are degenerative changes of the lumbar spine Included lung bases demonstrate small bilateral pleural effusions. Hazy parenchymal disease is seen in the bilateral lower lobes. 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 Inflammatory change is seen surrounding the lower pole left kidney. This is new since the prior exam, could inflammation secondary to acute obstruction versus infection, suspect the latter. Etiology of obstruction not demonstrated, could a congenital ureteropelvic junction obstruction Retrococcygeal decubitus changes and possibly ulceration. Correlate with clinical findings Bilateral pleural effusions. This is new since the previous study. 1.6 cm left adrenal mass, much more clearly demonstrated on the previous exam. Consider follow-up with adrenal protocol CT if this would affect management Gastrostomy, Tovar catheter, pacemaker incidentally noted Evidence of prior hysterectomy Incidental findings of degenerative disc disease, bilateral hip degenerative changes (2) Decubitus skin ulcer Assessment & Plan: 84-year-old female presented on admission with multiple decubitus skin ulcers and skin concerns. Patient identified to have a unstageable sacral lower back decubitus ulcer, periwound maceration, area of necrotic eschar soft, no drainage, no abscess, no foul odor Pt presented on admission with contractures, Multiple Pressure injuries.open DTPI sacrum.Wound is open at sacrococcygeal area(40%), with soft necrotic base ( L)5.5cm x (W)4.5cm. Surrounding base of wound is maroon and indurated. Total area of sacral DTPI measures(L) 12.5cm x (W)15cm. Non-blanching erythema periwound.In addition several small partial thickness wounds noted along Perineum.` Areas of hyperpigmentation noted to L and R trochanteric. Full thickness wound R knee.(L)1.1cm x (W)1.5cm.1 Base of wound 90% pink granulation,10% slough noted in center of wound. Borders are macerated.small amt serous exudate. No odor noted. No erythema or fluctuance noted periwound. Non-blanching erythema with fluctuance R heel. Unstageable pressure injury R hallux. Base of wound is 100% soft necrosis. Edges adherent and dry.No odor or exudate noted.Surrounding darker skin tone without erythema or fluctuance(L)2.6cm x (W)3cm. DTPI R Ankle(L)0.9cm x (W)1.6cm. Base of wound is fluctuant, maroon with marginal erythema. Periwound without erythema or fluctuance. Unstageable pressure injury distal/lateral R foot. Base of wound 100% soft necrosis with surrounding non-blanching erythema with fluctuance.(L)2cm x (W) 0.9cm. Stable dry eschar medial/lateral R foot (L)0.4cm x (W)0.8cm. Stable dry eschar lateral L heel.(L)1.9cm x (W)2.2cm. No erythema or fluctuance periwound. Unstable pressure injury medial/lateral L foot. Base of wound is 100% necrotic but dry.(L)0.7cm x (W)0.8cm. Unstageable pressure injury distal/lateral L foot. Base of wound is 100% necrotic but dry. (L)1.2cm x (W)1.6cm.non-blanching erythema without fluctuance periwound. Non-blanching erythema without fluctuance lateral L 5th metatarsal.(L)1.5cm x (W )0.5cm. Open DTPI L Hallux.Base of wound has mixed necrosis and slough with surrounding base of wound maroon with fluctuance. Non-blanching erythema without elevation in skin temp,or fluctuance periwound. Tx.plan: Cleanse Sacral wound with Saline. Apply TheraHoney. Apply Moisture Barrier Paste Periwound. Cover with Optifoam drsg. Change Daily and prn. Swab R nee with Betadine. Cover with Optifoam drsg every 3 days and prn. Swab wounds R foot with Betadine. Cover each wound with Optifoam drsg. Change every 3 days and prn. Swab wounds L foot with Betadine. Cover each wound with Optifoam drsg. Change every 3 days and prn. Reposition at least every 2hours or as tolerated. Place pillow between knees. Off-load heels with Pillow. APM/ARIEL Mattress. DAILY ESTIMATED NEEDS: Needs based on Wounds, underweight 50kg 30-35 kcals/kg 5860-9240 total kcals 1.25-2 g protein/kg 63-100 g total protein 25-30 mL/kg 2646-0835 total fluid mLs NUTRITION DIAGNOSIS: Increased kcal and pro needs r/t underweight status and wound healing as evidenced by pt @85% Mascot Body Weight w/ multiple wounds, eval pending, pt is PEG dep. CURRENT TF:Glucerna 1.5 @60ml x20 hrs ENTERAL NUTRITION RECOMMENDATIONS: Maintain current TF as tolerated: Glucerna 1.5 @60ml/hr x20 hrs to provide 1200ml, 1800 kcal, 99g pro, 911ml free H2o -> Monitor for hypoglycemia and need to change to non carb control formula -> Flush per MD. HOB over 30 degrees ADDITIONAL RECOMMENDATIONS: 1) On iso, per SNF pt is: 65 inches + 110#/50kg 2) Wound care: add MATT in 4oz H2O BID via GT F/up w/ WC eval 3) Maintain calibrated bed scale wts 4) Monitor for continued hypoglycemic events, need for D5 or TF change Luther Merceeds Feb 22, 2020 16:32
[2020-02-22 17:35] LABS: APPEARANCE,URINE CLEAR; BILIRUBIN, URINE NEGATIVE (NEGATIVE); COLOR,URINE PALE YELLOW; GLUCOSE, URINE (UA) NEGATIVE (NEGATIVE); KETONES,URINE NEGATIVE (NEGATIVE); LEUKOCYTE ESTERASE ,URINE 1+ (NEGATIVE); NITRITE,URINE NEGATIVE (NEGATIVE); PH,URINE 8 (4.5-8.0); PROTEIN,URINE 3+ (NEGATIVE); UROBILINOGEN,URINE NORMAL MG/DL (0.0-1.0)
[2020-02-22] MEDS: cefTRIAXone 1 GM in D5W 55 ML IVPB SCH (18:05)
[2020-02-22 20:00] VITALS: BP 136/82
[2020-02-22] MEDS: Atorvastatin 20mg tab ORAL SCH (20:55)
--- NOTE | 2020-02-22 21:25 | Neurology Progress Note ---
Interim History Interim History ROS Limited/Unobtainable: Yes Interim History no new neuro deficits Objective Physical Exam Last Vital Signs Date Time Temp Pulse Resp B/P (MAP) Pulse Ox O2 Delivery O2 Flow Rate FiO2 02/22/20 20:55 108 136/82 02/22/20 20:00 98.0 22 96 02/22/20 09:00 Room Air 02/18/20 16:20 3 Laboratory Tests Test 02/22/20 05:25 02/22/20 15:35 02/22/20 16:03 White Blood Count 16.9 K/UL (4.8-10.8) H 15.9 K/UL (4.8-10.8) H Red Blood Count 3.72 M/UL (4.20-5.40) L 4.10 M/UL (4.20-5.40) L Hemoglobin 10.4 G/DL (12.0-16.0) L 11.4 G/DL (12.0-16.0) L Hematocrit 30.8 % (37.0-47.0) L 34.9 % (37.0-47.0) L Mean Corpuscular Volume 83 FL (80-99) 85 FL (80-99) Mean Corpuscular Hemoglobin 27.8 PG (27.0-31.0) 27.7 PG (27.0-31.0) Mean Corpuscular Hemoglobin Concent 33.6 G/DL (32.0-36.0) 32.6 G/DL (32.0-36.0) Red Cell Distribution Width 17.4 % (11.6-14.8) H 16.3 % (11.6-14.8) H Platelet Count 393 K/UL (150-450) 314 K/UL (150-450) Mean Platelet Volume 6.4 FL (6.5-10.1) L 7.1 FL (6.5-10.1) Neutrophils (%) (Auto) % (45.0-75.0) 84.3 % (45.0-75.0) H Lymphocytes (%) (Auto) % (20.0-45.0) 9.6 % (20.0-45.0) L Monocytes (%) (Auto) % (1.0-10.0) 3.3 % (1.0-10.0) Eosinophils (%) (Auto) % (0.0-3.0) 2.0 % (0.0-3.0) Basophils (%) (Auto) % (0.0-2.0) 0.8 % (0.0-2.0) Differential Total Cells Counted 100 Neutrophils % (Manual) 86 % (45-75) H Lymphocytes % (Manual) 10 % (20-45) L Monocytes % (Manual) 3 % (1-10) Eosinophils % (Manual) 1 % (0-3) Basophils % (Manual) 0 % (0-2) Band Neutrophils 0 % (0-8) Platelet Estimate Adequate Platelet Morphology Normal Anisocytosis 1+ Sodium Level 140 MMOL/L (136-145) Potassium Level 4.8 MMOL/L (3.5-5.1) Chloride Level 103 MMOL/L (98-107) Carbon Dioxide Level 27 MMOL/L (21-32) Anion Gap 10 mmol/L (5-15) Blood Urea Nitrogen 23 mg/dL (7-18) H Creatinine 0.8 MG/DL (0.55-1.30) Estimat Glomerular Filtration Rate > 60 mL/min (>60) Glucose Level 120 MG/DL (74-106) H Calcium Level 8.5 MG/DL (8.5-10.1) Total Bilirubin 0.2 MG/DL (0.2-1.0) Aspartate Amino Transf (AST/SGOT) 34 U/L (15-37) Alanine Aminotransferase (ALT/SGPT) 27 U/L (12-78) Alkaline Phosphatase 159 U/L (46-116) H Total Protein 6.8 G/DL (6.4-8.2) Albumin 1.7 G/DL (3.4-5.0) L Globulin 5.1 g/dL Albumin/Globulin Ratio 0.3 (1.0-2.7) L Urine Color Pale yellow Urine Appearance Clear Urine pH 8 (4.5-8.0) Urine Specific [place] 1.010 (1.005-1.035) Urine Protein 3+ (NEGATIVE) H Urine Glucose (UA) Negative (NEGATIVE) Urine Ketones Negative (NEGATIVE) Urine Blood 5+ (NEGATIVE) H Urine Nitrite Negative (NEGATIVE) Urine Bilirubin Negative (NEGATIVE) Urine Urobilinogen Normal MG/DL (0.0-1.0) Urine Leukocyte Esterase 1+ (NEGATIVE) H Urine RBC 10-15 /HPF (0 - 2) H Urine WBC 0-2 /HPF (0 - 2) Urine Squamous Epithelial Cells None /LPF (NONE/OCC) Urine Bacteria None /HPF (NONE) Head: normocophalic, atraumatic Neck: no rigidity EENT: benign Neurologic Exam Sensory: other - cc 35 min Objective alert, tracks with eyes, Right sided weaker than left Impression/Recommendations Problems: (1) Septic shock (2) Anemia (3) Elevated troponin (4) Sepsis (5) Decubitus skin ulcer Status: stable Diagnostic Impression Acute encephalopathy in the context of sepsis Dementia, likely vascular Hx of strokes Monitor neuro exam Delirium precautions atb per primary asa daily PT OT Luis Nash MD Feb 22, 2020 21:25
[2020-02-23] VITALS: BP 123/71
[2020-02-23 04:00] VITALS: BP 128/76
[2020-02-23] MEDS: Levothyroxine 25mcg tab ORAL SCH (05:47)
--- NOTE | 2020-02-23 06:52 | General Progress Note ---
Assessment/Plan Problem List: (1) Diarrhea ICD Codes: R19.7 - Diarrhea, unspecified SNOMED: 01386645 (2) GI (gastrointestinal bleed) ICD Codes: K92.2 - Gastrointestinal hemorrhage, unspecified SNOMED: 61903651 (3) Elevated troponin ICD Codes: R79.89 - Other specified abnormal findings of blood chemistry; R65.21 - Severe sepsis with septic shock SNOMED: 393961883, 411472262, 978818141 (4) Anemia ICD Codes: D64.9 - Anemia, unspecified SNOMED: 800237506 (5) Septic shock ICD Codes: A41.9 - Sepsis, unspecified organism; R65.21 - Severe sepsis with septic shock SNOMED: 65977894 (6) Decubitus skin ulcer ICD Codes: L89.90 - Pressure ulcer of unspecified site, unspecified stage SNOMED: 532785132 Status: stable Assessment/Plan: diarrhea is better with Lomotil and Imodium neg stool C.diff TF , Glucerna 1.2 COVID >>> neg given active MS and stable H&H will hold GI procedures for now repeat stool ob>>> neg x2 repeat CBC fu ID regarding ABX treatment of Pyl[place] fu repeat CT>>> reviewed>>>fu ID recs fu urology recs for hematuria wound care abx per ID Subjective ROS Limited/Unobtainable: No Allergies: Coded Allergies: No Known Allergies (Unverified , 01/30/20) Objective Last 24 Hour Vital Signs Date Time Temp Pulse Resp B/P (MAP) Pulse Ox O2 Delivery O2 Flow Rate FiO2 02/23/20 04:00 98.1 105 20 128/76 (93) 99 02/23/20 00:00 97.9 97 18 123/71 (88) 99 02/22/20 21:00 Room Air 02/22/20 20:55 108 136/82 02/22/20 20:00 98.0 108 22 136/82 (100) 96 02/22/20 16:00 98.2 105 18 130/75 (93) 95 02/22/20 12:00 97.9 92 17 130/75 (93) 93 02/22/20 09:38 104 133/79 02/22/20 09:37 104 133/79 02/22/20 09:00 Room Air 02/22/20 08:00 97.6 104 18 133/79 (97) 99 Intake and Output 02/22/20 02/23/20 19:00 07:00 Intake Total 315 ml 860 ml Output Total 1450 ml 1200 ml Balance -1135 ml -340 ml Free Water 200 ml 200 ml IV Total 55 ml Tube Feeding 60 ml 660 ml Output Urine Total 1450 ml 1200 ml # Voids 1 # Bowel Movements 6 1 Laboratory Tests 02/22/20 15:35: White Blood Count 15.9H, Red Blood Count 4.10L, Hemoglobin 11.4L, Hematocrit 34.9L, Mean Corpuscular Volume 85, Mean Corpuscular Hemoglobin 27.7, Mean Corpuscular Hemoglobin Concent 32.6, Red Cell Distribution Width 16.3H, Platelet Count 314, Mean Platelet Volume 7.1, Neutrophils (%) (Auto) 84.3H, Lymphocytes (%) (Auto) 9.6L, Monocytes (%) (Auto) 3.3, Eosinophils (%) (Auto) 2.0, Basophils (%) (Auto) 0.8, Sodium Level 140, Potassium Level 4.8, Chloride Level 103, Carbon Dioxide Level 27, Anion Gap 10, Blood Urea Nitrogen 23H, Creatinine 0.8, Estimat Glomerular Filtration Rate > 60, Glucose Level 120H, Calcium Level 8.5, Total Bilirubin 0.2, Aspartate Amino Transf (AST/SGOT) 34, Alanine Aminotransferase (ALT/SGPT) 27, Alkaline Phosphatase 159H, Total Protein 6.8, Albumin 1.7L, Globulin 5.1, Albumin/Globulin Ratio 0.3L 02/22/20 16:03: Urine Color Pale yellow, Urine Appearance Clear, Urine pH 8, Urine Specific [place] 1.010, Urine Protein 3+H, Urine Glucose (UA) Negative, Urine Ketones Negative, Urine Blood 5+H, Urine Nitrite Negative, Urine Bilirubin Negative, Urine Urobilinogen Normal, Urine Leukocyte Esterase 1+H, Urine RBC 10-15H, Urine WBC 0-2, Urine Squamous Epithelial Cells None, Urine Bacteria None Height (Feet): 5 Height (Inches): 1.00 Weight (Pounds): 127 General Appearance: no apparent distress EENT: normal ENT inspection Neck: supple Cardiovascular: normal rate Respiratory/Chest: decreased breath sounds Abdomen: normal bowel sounds, non tender, soft Extremities: non-tender Herminio Rodriguez MD Feb 23, 2020 06:52
[2020-02-23 08:00] VITALS: BP 124/74
[2020-02-23] MEDS: Aspirin Baby 81mg GT SCH (09:13)
[2020-02-23] MEDS: Metoprolol Tartrate 50mg tab GT SCH ×2 (09:13→21:59)
[2020-02-23] MEDS: Fluconazole 100mg tab ORAL SCH (09:13)
--- NOTE | 2020-02-23 09:52 | Diagnostic Imaging Report ---
EXAM: XR Chest, 1 View CLINICAL HISTORY: INFECT TECHNIQUE: Frontal view of the chest. COMPARISON: 02/15/20 FINDINGS: Lungs: There is been development of bilateral lower lobe infiltrates, left greater than right consistent with nonspecific pneumonia. Pleural space: There is been development of small bilateral pleural effusions. No pneumothorax. Heart: The heart size is at the upper limits of normal. Mediastinum: Unremarkable. Bones/joints: Unremarkable. Tubes, lines and devices: There right subclavian cardiac leads in unchanged position. IMPRESSION: There is been development of bilateral lower lobe infiltrates, left greater than right consistent with nonspecific pneumonia.
--- NOTE | 2020-02-23 10:15 | Nephrology Progress Note ---
Assessment/Plan Plan #hypernatremia due to free water deficit of close to 3L-improved #sepsis due to Citrobacter bacteremia and pyelonephritis #h/o CVA with hemiplegia #DM #COPD # hyperlipidemia #hypothyroidism # GERD # unspecified CHF, S/p PPM # possible hydronephrosis on CT -> monitor off IVF -> monitor for ANGELICA _> CT abd/pelvis w con done on 02/14- s/p left ureteral stent 02/18 - amlodipine 10mg daily - decreased free water flushes to 150 q6hr - monitor bmp daily - continue abx - avoid nephrotoxins - strict I&Os - daily weights - monitor lytes - urology eval -CT abd/pelvis w con done on 02/14- - monitor Cr closely Subjective Subjective CT abd/pelvis w con done on 02/14- s/p left ureteral stent 02/18 WBC remains elevated renal function and electrolytes stable Renal US: Impression: Moderate to severe left hydronephrosis versus parapelvic cysts mimicking hydronephrosis, versus combination of both. This also described on recent CT scan Atrophic right kidney. Mild right renal collecting system fullness, significance/etiology uncertain Objective Objective Last 24 Hour Vital Signs Date Time Temp Pulse Resp B/P (MAP) Pulse Ox O2 Delivery O2 Flow Rate FiO2 02/23/20 09:13 110 124/74 02/23/20 09:13 110 124/74 02/23/20 08:00 98.3 110 22 124/74 (91) 99 02/23/20 04:00 98.1 105 20 128/76 (93) 99 02/23/20 00:00 97.9 97 18 123/71 (88) 99 02/22/20 21:00 Room Air 02/22/20 20:55 108 136/82 02/22/20 20:00 98.0 108 22 136/82 (100) 96 02/22/20 16:00 98.2 105 18 130/75 (93) 95 02/22/20 12:00 97.9 92 17 130/75 (93) 93 Intake and Output 02/22/20 02/23/20 19:00 07:00 Intake Total 315 ml 860 ml Output Total 1450 ml 1200 ml Balance -1135 ml -340 ml Free Water 200 ml 200 ml IV Total 55 ml Tube Feeding 60 ml 660 ml Output Urine Total 1450 ml 1200 ml # Voids 1 # Bowel Movements 6 1 Laboratory Tests 02/22/20 15:35: White Blood Count 15.9H, Red Blood Count 4.10L, Hemoglobin 11.4L, Hematocrit 34.9L, Mean Corpuscular Volume 85, Mean Corpuscular Hemoglobin 27.7, Mean Corpuscular Hemoglobin Concent 32.6, Red Cell Distribution Width 16.3H, Platelet Count 314, Mean Platelet Volume 7.1, Neutrophils (%) (Auto) 84.3H, Lymphocytes (%) (Auto) 9.6L, Monocytes (%) (Auto) 3.3, Eosinophils (%) (Auto) 2.0, Basophils (%) (Auto) 0.8, Sodium Level 140, Potassium Level 4.8, Chloride Level 103, Carbon Dioxide Level 27, Anion Gap 10, Blood Urea Nitrogen 23H, Creatinine 0.8, Estimat Glomerular Filtration Rate > 60, Glucose Level 120H, Calcium Level 8.5, Total Bilirubin 0.2, Aspartate Amino Transf (AST/SGOT) 34, Alanine Aminotransferase (ALT/SGPT) 27, Alkaline Phosphatase 159H, Total Protein 6.8, Albumin 1.7L, Globulin 5.1, Albumin/Globulin Ratio 0.3L 02/22/20 16:03: Urine Color Pale yellow, Urine Appearance Clear, Urine pH 8, Urine Specific [place] 1.010, Urine Protein 3+H, Urine Glucose (UA) Negative, Urine Ketones Negative, Urine Blood 5+H, Urine Nitrite Negative, Urine Bilirubin Negative, Urine Urobilinogen Normal, Urine Leukocyte Esterase 1+H, Urine RBC 10-15H, Urine WBC 0-2, Urine Squamous Epithelial Cells None, Urine Bacteria None Height (Feet): 5 Height (Inches): 1.00 Weight (Pounds): 127 Objective General Appearance: NAD, otherwise awake, alert, confused Neck: normal alignment, supple CV: RRR Respiratory: lungs clear, normal breath sounds, no respiratory distress Abdomen: non tender, soft, +PEG tube, c/d/i Ext: Contracted bilaterally, multiple abrasions wrapped in bandages C/D/I Cathy Fuller M.D. Feb 23, 2020 10:15
--- NOTE | 2020-02-23 10:43 | Urology Progress Note ---
Assessment/Plan Status: stable Assessment/Plan: 1. Left-sided hydronephrosis. 2. Urinary retention. 3. Neurogenic bladder. 4. Proteinuria. 5. Hematuria. 6. Pyuria. 7. Sepsis history. 8. Cystitis. 9. likely renal cyst. 10. POD # 5, left ureteral stent monitor clinically john remains indwelling hand irrigated and do PRN monitor renal fxn and WBC, fluctuating on abx, per ID voiding trial later hydro likely chronic, no stones, likely UPJ obst stent placed f/u on last cx's voiding trial at some point? d/w primary service Subjective Allergies: Coded Allergies: No Known Allergies (Unverified , 01/30/20) Subjective all noted, doing fair Objective Last 24 Hour Vital Signs Date Time Temp Pulse Resp B/P (MAP) Pulse Ox O2 Delivery O2 Flow Rate FiO2 02/23/20 09:13 110 124/74 02/23/20 09:13 110 124/74 02/23/20 08:00 98.3 110 22 124/74 (91) 99 02/23/20 04:00 98.1 105 20 128/76 (93) 99 02/23/20 00:00 97.9 97 18 123/71 (88) 99 02/22/20 21:00 Room Air 02/22/20 20:55 108 136/82 02/22/20 20:00 98.0 108 22 136/82 (100) 96 02/22/20 16:00 98.2 105 18 130/75 (93) 95 02/22/20 12:00 97.9 92 17 130/75 (93) 93 Intake and Output 02/22/20 02/23/20 19:00 07:00 Intake Total 315 ml 860 ml Output Total 1450 ml 1200 ml Balance -1135 ml -340 ml Free Water 200 ml 200 ml IV Total 55 ml Tube Feeding 60 ml 660 ml Output Urine Total 1450 ml 1200 ml # Voids 1 # Bowel Movements 6 1 Microbiology Date/Time Source Procedure Growth Status 02/20/20 18:10 Blood Blood Culture - Preliminary NO GROWTH AFTER 48 HOURS Resulted 01/30/20 15:45 Nasal Nares MRSA Culture - Final NO METHICILLIN RESISTANT STAPH AUREUS... Complete 02/15/20 06:00 Stool Clostridium difficile Toxin Assay - Final Complete 02/22/20 16:03 Indwelling Cath Urine Culture - Preliminary NO GROWTH Resulted 01/30/20 15:45 Rectum VRE Culture - Final NO VANCOMYCIN RESISTANT ENTEROCOCCUS ... Complete Current Medications Medications (Trade) Dose Ordered Sig/[place] Route PRN Reason Start Time Stop Time Status Last Admin Dose Admin Acetaminophen (Tylenol) 650 mg Q4H PRN GT MILD/TEMP 02/20/20 17:24 03/08/20 17:23 Amlodipine Besylate (Norvasc) 10 mg DAILY ORAL 02/21/20 09:00 03/17/20 08:59 02/23/20 09:13 Aspirin (ASA) 81 mg DAILY GT 02/21/20 09:00 03/27/20 08:59 02/23/20 09:13 Atorvastatin Calcium (Lipitor) 40 mg BEDTIME ORAL 02/20/20 21:00 04/29/20 20:59 02/22/20 20:55 Ceftriaxone Sodium 1 gm/ Dextrose 55 ml @ 110 mls/hr Q24H IVPB 02/22/20 18:15 02/27/20 17:29 02/22/20 18:05 Dextrose (Dextrose 50%) 25 ml Q30M PRN IV Hypoglycemia 02/20/20 17:30 04/29/20 18:59 Dextrose (Dextrose 50%) 50 ml Q30M PRN IV Hypoglycemia 02/20/20 17:30 04/29/20 18:59 Diphenhydramine HCl (Benadryl) 25 mg Q6H PRN ORAL Itching/Pruritis 02/20/20 17:27 03/10/20 17:26 Diphenoxylate HCl/ Atropine (Lomotil) 2.5 mg Q4H PRN GT Diarrhea 02/20/20 17:28 03/08/20 17:27 Fluconazole (Diflucan) 200 mg DAILY ORAL 02/21/20 09:00 02/28/20 08:59 02/23/20 09:13 Levothyroxine Sodium (Synthroid) 25 mcg DAILY@0630 ORAL 02/21/20 06:30 03/01/20 06:29 02/23/20 05:47 Linezolid (Zyvox) 600 mg EVERY 12 HOURS ORAL 02/20/20 21:00 02/25/20 20:59 02/23/20 09:12 Loperamide HCl (Imodium) 2 mg Q3H PRN NG Diarrhea 02/20/20 18:45 03/11/20 12:44 Metoprolol Tartrate (Lopressor) 50 mg Q12HR GT 02/20/20 21:00 05/13/20 08:59 02/23/20 09:13 Ondansetron HCl (Zofran) 4 mg Q6H PRN IVP Nausea & Vomiting 02/20/20 21:00 02/29/20 14:59 Laboratory Tests 02/22/20 15:35: White Blood Count 15.9H, Red Blood Count 4.10L, Hemoglobin 11.4L, Hematocrit 34.9L, Mean Corpuscular Volume 85, Mean Corpuscular Hemoglobin 27.7, Mean Corpuscular Hemoglobin Concent 32.6, Red Cell Distribution Width 16.3H, Platelet Count 314, Mean Platelet Volume 7.1, Neutrophils (%) (Auto) 84.3H, Lymphocytes (%) (Auto) 9.6L, Monocytes (%) (Auto) 3.3, Eosinophils (%) (Auto) 2.0, Basophils (%) (Auto) 0.8, Sodium Level 140, Potassium Level 4.8, Chloride Level 103, Carbon Dioxide Level 27, Anion Gap 10, Blood Urea Nitrogen 23H, Creatinine 0.8, Estimat Glomerular Filtration Rate > 60, Glucose Level 120H, Calcium Level 8.5, Total Bilirubin 0.2, Aspartate Amino Transf (AST/SGOT) 34, Alanine Aminotransferase (ALT/SGPT) 27, Alkaline Phosphatase 159H, Total Protein 6.8, Albumin 1.7L, Globulin 5.1, Albumin/Globulin Ratio 0.3L 02/22/20 16:03: Urine Color Pale yellow, Urine Appearance Clear, Urine pH 8, Urine Specific [place] 1.010, Urine Protein 3+H, Urine Glucose (UA) Negative, Urine Ketones Negative, Urine Blood 5+H, Urine Nitrite Negative, Urine Bilirubin Negative, Urine Urobilinogen Normal, Urine Leukocyte Esterase 1+H, Urine RBC 10-15H, Urine WBC 0-2, Urine Squamous Epithelial Cells None, Urine Bacteria None Height (Feet): 5 Height (Inches): 1.00 Weight (Pounds): 127 Objective exam stable john indwelling, yellow/evangelina urine with occasional debris renal u/s (02/11) noted CT A/P with IV contrast (02/14) noted Timothy Leos MD Feb 23, 2020 10:42
[2020-02-23 12:00] VITALS: BP 114/75
--- NOTE | 2020-02-23 12:08 | General Progress Note ---
Assessment/Plan Status: stable Assessment/Plan: 84 year old woman with history of CVA, hemiplegia, DM, COPD, CKD, hyperlipidemia , hypothyroidism, GERD, unspecified CHF, S/p PPM brought in from SNF with hypotension, found to be septic with leukocytosis and minimal pyuria #Sepsis #Citrobacter bacteremia #Enterococcus/VRE UTI #Yeast UTI #Left Hydronephrosis #Leukocytosis - WBC remains 17K today #Hypotension - resolved #Elevated lactate - resolved #diarrhea - improved #Fever - resolved -continue inpatient level of care, cardiac monitoring -COVID 19 negative -01/29 BCx +citrobacter, repeat on 02/02 BCx negative -c diff negative on 02/03, 02/14 -Cont.imodium, lomotil per ID -pt w/fever on 02/10: BCx NGTD -02/10: UCx + enterococcus/VRE -02/13 BCx w/GPC in pairs -CT A/p and renal US reviewed -CT abd/pel w/contrast 02/14: left renal infection/UTI/Mathew with perinephric stranding, left hydronephrosis, duplicated left renal collecting system, atrophic right kidney -S/p cysto with left sided ureteral stent placement 02/17 02/19 BCx,UCx NGTD -Continue IV abx as per ID recs x 2 more days -Repeat CBC tomorrow #NSTEMI #HTN #HLD #Elevated BNP #S/p PPM, [facility] DDD #Sinus tachycardia -Echo 02/10: EF 40-45% -PPM interrogated: sinus tach -trop peak 31>> 8 >> 2.23 -monitor closely for evidence of fluid overload -cont. home amlodipine 10 mg -cont. medical management ASA, lipitor -lopressor 50 BID w/hold parameters -Cardio, Dr. Crain, following: no indication for cath at this time -EP, Dr. Corley, following #Hypernatremia - resolved #Hyponatremia - resolved #Unspecified CKD #One Kidney -monitor renal function -FWF per nephro -Nephro following, recs appreciated #anemia #Thrombocytosis -downtrending, likely 2/2 to infectious process -cont. to monitor -no signs of bleeding -s/p 1 U PRBC on 02/16/20 -Heme, Dr. Baum, following, recs appreciated #Hypothyroidism -TSH normal -cont levothyroxine #Decubitus Ulcer -Wound care following, appreciate recs #Dementia #h/o CVA -AOx1 at b/l -supportive care, monitor mentation -fall precautions, aspiration precautions -PT/OT/MANAGER WOUND CARE -Frequent orienting -Neurology following: recs appreciated I spent 35 minutes on this patient's case, and >50% was dedicated to counseling and/or care coordination which includes discussions with ID physician, RN and showcase maker. Subjective ROS Limited/Unobtainable: Yes - aphasic Allergies: Coded Allergies: No Known Allergies (Unverified , 01/30/20) Subjective Follow up for left hydronephrosis, leukocytosis, NSTEMI, gram negative bacteremia. Underwent cystoscopy with left sided ureteral stent placement on 02/17 WBC downtrending Pt non-verbal, appears comfortable. Objective Last 24 Hour Vital Signs Date Time Temp Pulse Resp B/P (MAP) Pulse Ox O2 Delivery O2 Flow Rate FiO2 02/23/20 09:13 110 124/74 02/23/20 09:13 110 124/74 02/23/20 08:00 98.3 110 22 124/74 (91) 99 02/23/20 04:00 98.1 105 20 128/76 (93) 99 02/23/20 00:00 97.9 97 18 123/71 (88) 99 02/22/20 21:00 Room Air 02/22/20 20:55 108 136/82 02/22/20 20:00 98.0 108 22 136/82 (100) 96 02/22/20 16:00 98.2 105 18 130/75 (93) 95 Intake and Output 02/22/20 02/23/20 19:00 07:00 Intake Total 315 ml 860 ml Output Total 1450 ml 1200 ml Balance -1135 ml -340 ml Free Water 200 ml 200 ml IV Total 55 ml Tube Feeding 60 ml 660 ml Output Urine Total 1450 ml 1200 ml # Voids 1 # Bowel Movements 6 1 Laboratory Tests 02/22/20 15:35: White Blood Count 15.9H, Red Blood Count 4.10L, Hemoglobin 11.4L, Hematocrit 34.9L, Mean Corpuscular Volume 85, Mean Corpuscular Hemoglobin 27.7, Mean Corpuscular Hemoglobin Concent 32.6, Red Cell Distribution Width 16.3H, Platelet Count 314, Mean Platelet Volume 7.1, Neutrophils (%) (Auto) 84.3H, Lymphocytes (%) (Auto) 9.6L, Monocytes (%) (Auto) 3.3, Eosinophils (%) (Auto) 2.0, Basophils (%) (Auto) 0.8, Sodium Level 140, Potassium Level 4.8, Chloride Level 103, Carbon Dioxide Level 27, Anion Gap 10, Blood Urea Nitrogen 23H, Creatinine 0.8, Estimat Glomerular Filtration Rate > 60, Glucose Level 120H, Calcium Level 8.5, Total Bilirubin 0.2, Aspartate Amino Transf (AST/SGOT) 34, Alanine Aminotransferase (ALT/SGPT) 27, Alkaline Phosphatase 159H, Total Protein 6.8, Albumin 1.7L, Globulin 5.1, Albumin/Globulin Ratio 0.3L 02/22/20 16:03: Urine Color Pale yellow, Urine Appearance Clear, Urine pH 8, Urine Specific [place] 1.010, Urine Protein 3+H, Urine Glucose (UA) Negative, Urine Ketones Negative, Urine Blood 5+H, Urine Nitrite Negative, Urine Bilirubin Negative, Urine Urobilinogen Normal, Urine Leukocyte Esterase 1+H, Urine RBC 10-15H, Urine WBC 0-2, Urine Squamous Epithelial Cells None, Urine Bacteria None Height (Feet): 5 Height (Inches): 1.00 Weight (Pounds): 127 Objective General Appearance: NAD, non-verbal, awake, alert, cachetic, appears comfortable in bed HEENT: NCAT, MMM, EOMi CV: RRR Respiratory: lungs clear, normal breath sounds, no respiratory distress Abdomen: non tender, soft, +PEG tube, c/d/i Ext: Contracted bilaterally, multiple abrasions wrapped in bandages C/D/I Skin: PPM in right upper chest wall Lorna Uribe M.D. Feb 23, 2020 12:08
[2020-02-23 16:00] VITALS: BP 136/72
[2020-02-23] MEDS ORDERED: Sterile Water Irrig 1000ml IRRIG ONE (16:58)
--- NOTE | 2020-02-23 17:20 | Cardiac Electrophysiology PN ---
Assessment/Plan Assessment/Plan 1. S/P R. [facility] DDD pacer implantation with Nl Fx 2. Acute NSTEMI with peak troponin 31. Down to 2. Non verbal. Continue aspirin, Lopressor 50 bid and Lipitor. Echo on 02/11/20 EF 40-45% 3. Diabetes. 4. Hypertension, on Toprol 50 bid and Norvasc 10 daily 5. Status post septic shock with WBC 27 K. Improved on iv Abx per Dr. Naylor 6. Severe anemia. Hemoglobin improved from 7.5 to 9.4. 7. Dementia. 8. CVA. 10. COPD. 11. ARF and hydronephrosis, Cr now normal. S/P ureteral stent placement on 02/18/20 12. S/P PEG placement. DW accessories repairer pending Subjective Subjective Nonverbal but alert and responsive in NAD. No events S/P ureteral stent placement by Dr. Leos on 02/18/20. Objective Last 24 Hour Vital Signs Date Time Temp Pulse Resp B/P (MAP) Pulse Ox O2 Delivery O2 Flow Rate FiO2 02/23/20 16:00 98.2 104 22 136/72 (93) 98 02/23/20 12:00 98.4 97 22 114/75 (88) 97 02/23/20 09:13 110 124/74 02/23/20 09:13 110 124/74 02/23/20 09:00 Room Air 02/23/20 08:00 98.3 110 22 124/74 (91) 99 02/23/20 04:00 98.1 105 20 128/76 (93) 99 02/23/20 00:00 97.9 97 18 123/71 (88) 99 02/22/20 21:00 Room Air 02/22/20 20:55 108 136/82 02/22/20 20:00 98.0 108 22 136/82 (100) 96 Intake and Output 02/22/20 02/23/20 19:00 07:00 Intake Total 315 ml 860 ml Output Total 1450 ml 1200 ml Balance -1135 ml -340 ml Free Water 200 ml 200 ml IV Total 55 ml Tube Feeding 60 ml 660 ml Output Urine Total 1450 ml 1200 ml # Voids 1 # Bowel Movements 6 1 Microbiology Date/Time Source Procedure Growth Status 02/20/20 18:10 Blood Blood Culture - Preliminary NO GROWTH AFTER 48 HOURS Resulted 02/20/20 18:00 Blood Blood Culture - Preliminary NO GROWTH AFTER 48 HOURS Resulted 02/22/20 16:03 Indwelling Cath Urine Culture - Preliminary NO GROWTH Resulted Objective HEAD AND NECK: Shows no JVD. LUNGS: Coarse rhonchi. CARDIOVASCULAR: Regular S1 and S2. Pacemaker is in the right subclavian. ABDOMEN: Soft.PEG in place. Has john EXTREMITIES: Contracted. Oscar Corley MD Feb 23, 2020 17:20
[2020-02-23] MEDS: cefTRIAXone 1 GM in D5W 55 ML IVPB SCH (17:29)
--- NOTE | 2020-02-23 19:06 | Neurology Progress Note ---
Interim History Interim History ROS Limited/Unobtainable: Yes - aphasic Review of Systems Neuro Review of Systems no new deficits Objective Physical Exam Last Vital Signs Date Time Temp Pulse Resp B/P (MAP) Pulse Ox O2 Delivery O2 Flow Rate FiO2 02/23/20 16:00 98.2 104 22 136/72 (93) 98 02/23/20 09:00 Room Air 02/18/20 16:20 3 Head: normocophalic, atraumatic Neck: no rigidity EENT: benign Neurologic Exam Sensory: other - cc 35 min Objective alert, tracks with eyes, Right sided weaker than left Impression/Recommendations Problems: (1) Septic shock (2) Anemia (3) Elevated troponin (4) Sepsis (5) Decubitus skin ulcer Status: stable Diagnostic Impression Acute encephalopathy in the context of sepsis Dementia, likely vascular Hx of strokes Monitor neuro exam Delirium precautions atb per primary asa daily PT OT Luis Nash MD Feb 23, 2020 19:06
--- NOTE | 2020-02-23 19:43 | Surgery Progress Note ---
Surgery Progress Note Subjective Additional Comments no acute events exam stable d/c planning Objective Last 24 Hour Vital Signs Date Time Temp Pulse Resp B/P (MAP) Pulse Ox O2 Delivery O2 Flow Rate FiO2 02/23/20 16:00 98.2 104 22 136/72 (93) 98 02/23/20 12:00 98.4 97 22 114/75 (88) 97 02/23/20 09:13 110 124/74 02/23/20 09:13 110 124/74 02/23/20 09:00 Room Air 02/23/20 08:00 98.3 110 22 124/74 (91) 99 02/23/20 04:00 98.1 105 20 128/76 (93) 99 02/23/20 00:00 97.9 97 18 123/71 (88) 99 02/22/20 21:00 Room Air 02/22/20 20:55 108 136/82 02/22/20 20:00 98.0 108 22 136/82 (100) 96 I&O Intake and Output 02/22/20 02/23/20 19:00 07:00 Intake Total 315 ml 860 ml Output Total 1450 ml 1200 ml Balance -1135 ml -340 ml Free Water 200 ml 200 ml IV Total 55 ml Tube Feeding 60 ml 660 ml Output Urine Total 1450 ml 1200 ml # Voids 1 # Bowel Movements 6 1 Dressing: saturated Wound: clean Cardiovascular: RSR Respiratory: clear, decreased breath sounds Abdomen: non-tender, present bowel sounds Extremities: no cyanosis Plan Problems: (1) Septic shock Assessment & Plan: Patient presented to emergency department with sepsis hypotension tachycardia lactic acidosis leukocytosis. On IV antibiotics Labs improving IV hydration Continue tube feeds advance goal as tolerated Abdominal exam does elicit patient to retract a bit but she is not tender peritonitis or without rebound or significant guarding. exam improved Likely startle effect rather than intra-abdominal pathology will follow with serial exams continue with current care plan thank you for let me participate in patient's care leukocytosis. c diff negative. blood cultures noted abx as per ID Severe left hydronephrosis versus parapelvic cysts. No definite obstructing stone. Mild bladder wall thickening with small gas foci in the bladder, concerning for cystitis. Please correlate with urinalysis. Acute NSTEMI with peak troponin 31 as per cardiology wbc fever micro worsening leukocytosis improving labs improved downgraded exam stable labs ordered -Small bilateral pleural effusions with passive atelectasis and lung base motion artifact. -Pacer device leads in the heart. -Tovar catheter in the decompressed urinary bladder. - No urolithiasis seen. -Consider left renal collecting system infection/UTI/pyelonephritis in the proper context given moderate left perinephric stranding which is asymmetric compared with the right. -Similar to prior study left inferior renal moiety moderate hydronephrosis without visualized cause. 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 -If there is further desire to evaluate collecting system dilation, consider repeating the study with CT hematuria protocol. -Sacral decubitus ulcer, correlate with presentation. - Rapid transit of contrast through the GI tract could be incidental or could be seen with an infectious or inflammatory enteritis. -Indeterminate left adrenal 2.1 cm enhancing nodule, if felt to alter clinical management consider additional evaluation adrenal gland. CONSIDER correlation with prior imaging studies. -Right renal cortical scarring due to old infectious or ischemic insults. -Atherosclerotic vascular disease. - Hysterectomy. -Unchanged osteopenia and degenerative spine findings. Unchanged old right possible lesser trochanter fracture versus extensive right hip capsular calcifications. 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 The lower pole collecting system is markedly hydronephrotic. The upper pole collecting system is normal in appearance. There is inflammatory change surrounding the lower pole of the left kidney, with some fluid tracking caudad along Gerota's fascia. There is either a cyst or dilated calyx in the left lower pole, suspect the latter as this appears to communicate with the collecting system along the anterior border of the kidney, best visualized on the sagittal reconstructed images. No obstructing stone or mass is demonstrated. There is no hydroureter. The upper pole collecting system is nondilated. There is probably only a single left ureter, but this cannot be stated for certain. The right kidney demonstrates subcentimeter low-attenuation lesions which are too small to characterize, most likely benign simple cysts. There is a Tovar catheter within the bladder, which contains some gas presumably related to the Tovar catheterization. There are retrococcygeal decubitus changes and suspicion for some ulceration. This is more evident than on the prior exam. No definite osseous destruction. The liver, gallbladder, bile ducts, pancreas, spleen, adrenals are unremarkable. No retroperitoneal or mesenteric mass or adenopathy. No pelvic mass or adenopathy. The uterus is absent. Ingested contrast has reached the distal colon, and there is some evidence of rectal fecal incontinence. No evidence of colonic diverticulosis or diverticulitis. The appendix is normal. No small bowel distention. No small bowel wall thickening. There is a small amount of free pelvic fluid. Distal esophagus is unremarkable. The stomach contains a gastrostomy which appears to be well positioned. Fairly extensive chronic degenerative changes are seen about both hips. There is some infiltration of the subcutaneous fat in the bilateral neck regions which is nonspecific. There are degenerative changes of the lumbar spine Included lung bases demonstrate small bilateral pleural effusions. Hazy parenchymal disease is seen in the bilateral lower lobes. 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 Inflammatory change is seen surrounding the lower pole left kidney. This is new since the prior exam, could inflammation secondary to acute obstruction versus infection, suspect the latter. Etiology of obstruction not demonstrated, could a congenital ureteropelvic junction obstruction Retrococcygeal decubitus changes and possibly ulceration. Correlate with clinical findings Bilateral pleural effusions. This is new since the previous study. 1.6 cm left adrenal mass, much more clearly demonstrated on the previous exam. Consider follow-up with adrenal protocol CT if this would affect management Gastrostomy, Tovar catheter, pacemaker incidentally noted Evidence of prior hysterectomy Incidental findings of degenerative disc disease, bilateral hip degenerative changes (2) Decubitus skin ulcer Assessment & Plan: 84-year-old female presented on admission with multiple decubitus skin ulcers and skin concerns. Patient identified to have a unstageable sacral lower back decubitus ulcer, periwound maceration, area of necrotic eschar soft, no drainage, no abscess, no foul odor Pt presented on admission with contractures, Multiple Pressure injuries.open DTPI sacrum.Wound is open at sacrococcygeal area(40%), with soft necrotic base ( L)5.5cm x (W)4.5cm. Surrounding base of wound is maroon and indurated. Total area of sacral DTPI measures(L) 12.5cm x (W)15cm. Non-blanching erythema periwound.In addition several small partial thickness wounds noted along Perineum.` Areas of hyperpigmentation noted to L and R trochanteric. Full thickness wound R knee.(L)1.1cm x (W)1.5cm.1 Base of wound 90% pink granulation,10% slough noted in center of wound. Borders are macerated.small amt serous exudate. No odor noted. No erythema or fluctuance noted periwound. Non-blanching erythema with fluctuance R heel. Unstageable pressure injury R hallux. Base of wound is 100% soft necrosis. Edges adherent and dry.No odor or exudate noted.Surrounding darker skin tone without erythema or fluctuance(L)2.6cm x (W)3cm. DTPI R Ankle(L)0.9cm x (W)1.6cm. Base of wound is fluctuant, maroon with marginal erythema. Periwound without erythema or fluctuance. Unstageable pressure injury distal/lateral R foot. Base of wound 100% soft necrosis with surrounding non-blanching erythema with fluctuance.(L)2cm x (W) 0.9cm. Stable dry eschar medial/lateral R foot (L)0.4cm x (W)0.8cm. Stable dry eschar lateral L heel.(L)1.9cm x (W)2.2cm. No erythema or fluctuance periwound. Unstable pressure injury medial/lateral L foot. Base of wound is 100% necrotic but dry.(L)0.7cm x (W)0.8cm. Unstageable pressure injury distal/lateral L foot. Base of wound is 100% necrotic but dry. (L)1.2cm x (W)1.6cm.non-blanching erythema without fluctuance periwound. Non-blanching erythema without fluctuance lateral L 5th metatarsal.(L)1.5cm x (W )0.5cm. Open DTPI L Hallux.Base of wound has mixed necrosis and slough with surrounding base of wound maroon with fluctuance. Non-blanching erythema without elevation in skin temp,or fluctuance periwound. Tx.plan: Cleanse Sacral wound with Saline. Apply TheraHoney. Apply Moisture Barrier Paste Periwound. Cover with Optifoam drsg. Change Daily and prn. Swab R nee with Betadine. Cover with Optifoam drsg every 3 days and prn. Swab wounds R foot with Betadine. Cover each wound with Optifoam drsg. Change every 3 days and prn. Swab wounds L foot with Betadine. Cover each wound with Optifoam drsg. Change every 3 days and prn. Reposition at least every 2hours or as tolerated. Place pillow between knees. Off-load heels with Pillow. APM/ARIEL Mattress. DAILY ESTIMATED NEEDS: Needs based on Wounds, underweight 50kg 30-35 kcals/kg 7360-2014 total kcals 1.25-2 g protein/kg 63-100 g total protein 25-30 mL/kg 1362-5106 total fluid mLs NUTRITION DIAGNOSIS: Increased kcal and pro needs r/t underweight status and wound healing as evidenced by pt @85% [place] Body Weight w/ multiple wounds, eval pending, pt is PEG dep. CURRENT TF:Glucerna 1.5 @60ml x20 hrs ENTERAL NUTRITION RECOMMENDATIONS: Maintain current TF as tolerated: Glucerna 1.5 @60ml/hr x20 hrs to provide 1200ml, 1800 kcal, 99g pro, 911ml free H2o -> Monitor for hypoglycemia and need to change to non carb control formula -> Flush per MD. HOB over 30 degrees ADDITIONAL RECOMMENDATIONS: 1) On iso, per SNF pt is: 65 inches + 110#/50kg 2) Wound care: add MATT in 4oz H2O BID via GT F/up w/ WC eval 3) Maintain calibrated bed scale wts 4) Monitor for continued hypoglycemic events, need for D5 or TF change Luther Mercedes Feb 23, 2020 19:43
[2020-02-23 20:00] VITALS: BP 109/71
[2020-02-23] MEDS ORDERED: Tubing IV Secondary IV ONE (21:03)
[2020-02-23] MEDS: Atorvastatin 20mg tab ORAL SCH (21:59)
[2020-02-24] VITALS: BP 122/71
[2020-02-24 04:00] VITALS: BP 133/78
[2020-02-24] MEDS: Levothyroxine 25mcg tab ORAL SCH (06:00)
--- NOTE | 2020-02-24 06:58 | General Progress Note ---
Assessment/Plan Problem List: (1) Diarrhea ICD Codes: R19.7 - Diarrhea, unspecified SNOMED: 57395596 (2) GI (gastrointestinal bleed) ICD Codes: K92.2 - Gastrointestinal hemorrhage, unspecified SNOMED: 54281577 (3) Elevated troponin ICD Codes: R79.89 - Other specified abnormal findings of blood chemistry; R65.21 - Severe sepsis with septic shock SNOMED: 141061637, 103599000, 643589299 (4) Anemia ICD Codes: D64.9 - Anemia, unspecified SNOMED: 005976921 (5) Septic shock ICD Codes: A41.9 - Sepsis, unspecified organism; R65.21 - Severe sepsis with septic shock SNOMED: 89906677 (6) Decubitus skin ulcer ICD Codes: L89.90 - Pressure ulcer of unspecified site, unspecified stage SNOMED: 181429407 Status: stable Assessment/Plan: diarrhea is better with Lomotil and Imodium neg stool C.diff TF , Glucerna 1.2 COVID >>> neg given active CT and stable H&H will hold GI procedures for now repeat stool ob>>> neg x2 repeat CBC fu ID regarding ABX treatment of Pylo fu repeat CT>>> reviewed>>>fu ID recs fu urology recs for hematuria wound care abx per ID Subjective ROS Limited/Unobtainable: No Allergies: Coded Allergies: No Known Allergies (Unverified , 01/30/20) Objective Last 24 Hour Vital Signs Date Time Temp Pulse Resp B/P (MAP) Pulse Ox O2 Delivery O2 Flow Rate FiO2 02/24/20 04:00 98.1 103 24 133/78 (96) 96 02/24/20 00:00 97.9 92 24 122/71 (88) 94 02/23/20 21:59 108 130/71 02/23/20 21:00 Room Air 02/23/20 20:00 98.4 111 24 109/71 (84) 97 02/23/20 16:00 98.2 104 22 136/72 (93) 98 02/23/20 12:00 98.4 97 22 114/75 (88) 97 02/23/20 09:13 110 124/74 02/23/20 09:13 110 124/74 02/23/20 09:00 Room Air 02/23/20 08:00 98.3 110 22 124/74 (91) 99 Intake and Output 02/23/20 02/24/20 19:00 07:00 Intake Total 315 ml 800 ml Output Total 950 ml 950 ml Balance -635 ml -150 ml Free Water 200 ml 200 ml IV Total 55 ml Tube Feeding 60 ml 600 ml Output Urine Total 950 ml 950 ml # Voids 2 # Bowel Movements 3 2 Height (Feet): 5 Height (Inches): 1.00 Weight (Pounds): 127 General Appearance: alert EENT: normal ENT inspection Neck: supple Cardiovascular: normal rate Respiratory/Chest: decreased breath sounds Abdomen: normal bowel sounds, non tender, soft Herminio Rodriguez MD Feb 24, 2020 06:58
[2020-02-24 08:00] VITALS: BP 133/79
[2020-02-24 08:42] LABS: HEMATOCRIT 29.3 % (37.0-47.0); HEMOGLOBIN 9.9 G/DL (12.0-16.0); MEAN CORPUSCULAR VOLUME 82 FL (80-99); PLATELET COUNT 304 K/UL (150-450); RED BLOOD COUNT 3.56 M/UL (4.20-5.40); RED CELL DISTRIBUTION WIDTH 13.9 % (11.6-14.8); WHITE BLOOD COUNT 15.1 K/UL (4.8-10.8)
[2020-02-24 09:05] LABS: ALANINE AMINOTRANSFERASE 25 U/L (12-78); ALBUMIN 1.6 G/DL (3.4-5.0); ALBUMIN/GLOBULIN RATIO 0.3 (1.0-2.7); ALKALINE PHOSPHATASE 129 U/L (46-116); ANION GAP 8 mmol/L (5-15); ASPARTATE AMINO TRANSFERASE 30 U/L (15-37); BILIRUBIN,TOTAL 0.2 MG/DL (0.2-1.0); BLOOD UREA NITROGEN 24 mg/dL (7-18); CALCIUM 8.6 MG/DL (8.5-10.1); CARBON DIOXIDE 29 MMOL/L (21-32); CHLORIDE 102 MMOL/L (98-107); CREATININE 0.8 MG/DL (0.55-1.30); POTASSIUM 4.2 MMOL/L (3.5-5.1); SODIUM 139 MMOL/L (136-145)
[2020-02-24] MEDS: Fluconazole 100mg tab ORAL SCH (10:07)
[2020-02-24] MEDS: Aspirin Baby 81mg GT SCH (10:08)
[2020-02-24] MEDS: Metoprolol Tartrate 50mg tab GT SCH ×2 (10:08→21:01)
--- NOTE | 2020-02-24 10:20 | Urology Progress Note ---
Assessment/Plan Status: stable Assessment/Plan: 1. Left-sided hydronephrosis. 2. Urinary retention. 3. Neurogenic bladder. 4. Proteinuria. 5. Hematuria. 6. Pyuria. 7. Sepsis history. 8. Cystitis. 9. likely renal cyst. 10. POD # 6, left ureteral stent monitor clinically john remains indwelling hand irrigated and do PRN monitor renal fxn and WBC, fluctuating on abx, per ID voiding trial later hydro likely chronic, no stones, likely UPJ obst stent placed f/u on last cx's voiding trial at some point? d/w primary service Subjective Allergies: Coded Allergies: No Known Allergies (Unverified , 01/30/20) Subjective all noted, doing fair Objective Last 24 Hour Vital Signs Date Time Temp Pulse Resp B/P (MAP) Pulse Ox O2 Delivery O2 Flow Rate FiO2 02/24/20 10:08 108 133/79 02/24/20 10:08 108 133/79 02/24/20 08:00 98.1 108 20 133/79 (97) 98 02/24/20 04:00 98.1 103 24 133/78 (96) 96 02/24/20 00:00 97.9 92 24 122/71 (88) 94 02/23/20 21:59 108 130/71 02/23/20 21:00 Room Air 02/23/20 20:00 98.4 111 24 109/71 (84) 97 02/23/20 16:00 98.2 104 22 136/72 (93) 98 02/23/20 12:00 98.4 97 22 114/75 (88) 97 Intake and Output 02/23/20 02/24/20 19:00 07:00 Intake Total 315 ml 800 ml Output Total 950 ml 950 ml Balance -635 ml -150 ml Free Water 200 ml 200 ml IV Total 55 ml Tube Feeding 60 ml 600 ml Output Urine Total 950 ml 950 ml # Voids 2 # Bowel Movements 3 2 Microbiology Date/Time Source Procedure Growth Status 02/22/20 14:45 Blood Blood Culture - Preliminary NO GROWTH AFTER 24 HOURS Resulted 01/30/20 15:45 Nasal Nares MRSA Culture - Final NO METHICILLIN RESISTANT STAPH AUREUS... Complete 02/15/20 06:00 Stool Clostridium difficile Toxin Assay - Final Complete 02/22/20 16:03 Indwelling Cath Urine Culture - Preliminary NO GROWTH AFTER 24 HOURS Resulted 01/30/20 15:45 Rectum VRE Culture - Final NO VANCOMYCIN RESISTANT ENTEROCOCCUS ... Complete Current Medications Medications (Trade) Dose Ordered Sig/Moreno Route PRN Reason Start Time Stop Time Status Last Admin Dose Admin Acetaminophen (Tylenol) 650 mg Q4H PRN GT MILD/TEMP 02/20/20 17:24 03/08/20 17:23 Amlodipine Besylate (Norvasc) 10 mg DAILY ORAL 02/21/20 09:00 03/17/20 08:59 02/24/20 10:08 Aspirin (ASA) 81 mg DAILY GT 02/21/20 09:00 03/27/20 08:59 02/24/20 10:08 Atorvastatin Calcium (Lipitor) 40 mg BEDTIME ORAL 02/20/20 21:00 04/29/20 20:59 02/23/20 21:59 Ceftriaxone Sodium 1 gm/ Dextrose 55 ml @ 110 mls/hr Q24H IVPB 02/22/20 18:15 02/27/20 17:29 02/23/20 17:29 Dextrose (Dextrose 50%) 25 ml Q30M PRN IV Hypoglycemia 02/20/20 17:30 04/29/20 18:59 Dextrose (Dextrose 50%) 50 ml Q30M PRN IV Hypoglycemia 02/20/20 17:30 04/29/20 18:59 Diphenhydramine HCl (Benadryl) 25 mg Q6H PRN ORAL Itching/Pruritis 02/20/20 17:27 03/10/20 17:26 Diphenoxylate HCl/ Atropine (Lomotil) 2.5 mg Q4H PRN GT Diarrhea 02/20/20 17:28 03/08/20 17:27 Fluconazole (Diflucan) 200 mg DAILY ORAL 02/21/20 09:00 02/28/20 08:59 02/24/20 10:07 Levothyroxine Sodium (Synthroid) 25 mcg DAILY@0630 ORAL 02/21/20 06:30 03/01/20 06:29 02/24/20 06:00 Linezolid (Zyvox) 600 mg EVERY 12 HOURS ORAL 02/20/20 21:00 02/25/20 20:59 02/24/20 10:08 Loperamide HCl (Imodium) 2 mg Q3H PRN NG Diarrhea 02/20/20 18:45 03/11/20 12:44 Metoprolol Tartrate (Lopressor) 50 mg Q12HR GT 02/20/20 21:00 05/13/20 08:59 02/24/20 10:08 Ondansetron HCl (Zofran) 4 mg Q6H PRN IVP Nausea & Vomiting 02/20/20 21:00 02/29/20 14:59 Laboratory Tests 02/24/20 08:10: White Blood Count 15.1H, Red Blood Count 3.56L, Hemoglobin 9.9L, Hematocrit 29.3L, Mean Corpuscular Volume 82, Mean Corpuscular Hemoglobin 27.8, Mean Corpuscular Hemoglobin Concent 33.8, Red Cell Distribution Width 13.9, Platelet Count 304, Mean Platelet Volume 5.5L, Neutrophils (%) (Auto) , Lymphocytes (%) ( Auto) , Monocytes (%) (Auto) , Eosinophils (%) (Auto) , Basophils (%) (Auto) , Differential Total Cells Counted 100, Neutrophils % (Manual) 81H, Lymphocytes % (Manual) 7L, Monocytes % (Manual) 8, Eosinophils % (Manual) 4H, Basophils % ( Manual) 0, Band Neutrophils 0, Platelet Estimate Adequate, Platelet Morphology Normal, Hypochromasia 1+, Sodium Level 139, Potassium Level 4.2, Chloride Level 102, Carbon Dioxide Level 29, Anion Gap 8, Blood Urea Nitrogen 24H, Creatinine 0.8, Estimat Glomerular Filtration Rate > 60, Glucose Level 106, Calcium Level 8.6, Total Bilirubin 0.2, Aspartate Amino Transf (AST/SGOT) 30, Alanine Aminotransferase (ALT/SGPT) 25, Alkaline Phosphatase 129H, Total Protein 6.7, Albumin 1.6L, Globulin 5.1, Albumin/Globulin Ratio 0.3L Height (Feet): 5 Height (Inches): 1.00 Weight (Pounds): 127 Objective exam stable john indwelling, yellow/evangelina urine with occasional debris renal u/s (02/11) noted CT A/P with IV contrast (02/14) noted Timothy Leos MD Feb 24, 2020 10:20
--- NOTE | 2020-02-24 10:25 | General Progress Note ---
Assessment/Plan Status: stable Assessment/Plan: 84 year old woman with history of CVA, hemiplegia, DM, COPD, CKD, hyperlipidemia , hypothyroidism, GERD, unspecified CHF, S/p PPM brought in from SNF with hypotension, found to be septic with leukocytosis and minimal pyuria #Sepsis #Citrobacter bacteremia #Enterococcus/VRE UTI #Yeast UTI #Left Hydronephrosis #Leukocytosis - WBC remains 15K today #Hypotension - resolved #Elevated lactate - resolved #diarrhea - improved #Fever - resolved -continue inpatient level of care, cardiac monitoring -COVID 19 negative -01/29 BCx +citrobacter, repeat on 02/02 BCx negative -c diff negative on 02/03, 02/14 -Cont.imodium, lomotil per ID -pt w/fever on 02/10: BCx NGTD -02/10: UCx + enterococcus/VRE -02/13 BCx w/GPC in pairs -CT A/p and renal US reviewed -CT abd/pel w/contrast 02/14: left renal infection/UTI/Mathew with perinephric stranding, left hydronephrosis, duplicated left renal collecting system, atrophic right kidney -S/p cysto with left sided ureteral stent placement 02/17 02/19 BCx,UCx NGTD -02/22 CXR w/b/l infilatrates, L>R -Continue IV abx as per ID recs x 1 more day -dispo planning if WBC <15 -d/w ID #NSTEMI #HTN #HLD #Elevated BNP #S/p PPM, [facility] DDD #Sinus tachycardia -Echo 02/10: EF 40-45% -PPM interrogated: sinus tach -trop peak 31>> 8 >> 2.23 -monitor closely for evidence of fluid overload -cont. home amlodipine 10 mg -cont. medical management ASA, lipitor -lopressor 50 BID w/hold parameters -Cardio, Dr. Crain, following: no indication for cath at this time -EP, Dr. Corley, following #Hypernatremia - resolved #Hyponatremia - resolved #Unspecified CKD #One Kidney -monitor renal function -FWF per nephro -Nephro following, recs appreciated #anemia #Thrombocytosis -downtrending, likely 2/2 to infectious process -cont. to monitor -no signs of bleeding -s/p 1 U PRBC on 02/16/20 -Heme, Dr. Baum, following, recs appreciated #Hypothyroidism -TSH normal -cont levothyroxine #Decubitus Ulcer -Wound care following, appreciate recs #Dementia #h/o CVA -AOx1 at b/l -supportive care, monitor mentation -fall precautions, aspiration precautions -PT/OT/NEUROLOGY TECH -Frequent orienting -Neurology following: recs appreciated I spent 35 minutes on this patient's case, and >50% was dedicated to counseling and/or care coordination which includes discussions with ID physician, RN and case loader operator. Subjective ROS Limited/Unobtainable: Yes - A phasic Allergies: Coded Allergies: No Known Allergies (Unverified , 01/30/20) Subjective Follow up for left hydronephrosis, leukocytosis, NSTEMI, gram negative bacteremia. Underwent cystoscopy with left sided ureteral stent placement on 02/17 WBC remains elevated Pt non-verbal, appears comfortable. Objective Last 24 Hour Vital Signs Date Time Temp Pulse Resp B/P (MAP) Pulse Ox O2 Delivery O2 Flow Rate FiO2 02/24/20 10:08 108 133/79 02/24/20 10:08 108 133/79 02/24/20 08:00 98.1 108 20 133/79 (97) 98 02/24/20 04:00 98.1 103 24 133/78 (96) 96 02/24/20 00:00 97.9 92 24 122/71 (88) 94 02/23/20 21:59 108 130/71 02/23/20 21:00 Room Air 02/23/20 20:00 98.4 111 24 109/71 (84) 97 02/23/20 16:00 98.2 104 22 136/72 (93) 98 02/23/20 12:00 98.4 97 22 114/75 (88) 97 Intake and Output 02/23/20 02/24/20 19:00 07:00 Intake Total 315 ml 800 ml Output Total 950 ml 950 ml Balance -635 ml -150 ml Free Water 200 ml 200 ml IV Total 55 ml Tube Feeding 60 ml 600 ml Output Urine Total 950 ml 950 ml # Voids 2 # Bowel Movements 3 2 Laboratory Tests 02/24/20 08:10: White Blood Count 15.1H, Red Blood Count 3.56L, Hemoglobin 9.9L, Hematocrit 29.3L, Mean Corpuscular Volume 82, Mean Corpuscular Hemoglobin 27.8, Mean Corpuscular Hemoglobin Concent 33.8, Red Cell Distribution Width 13.9, Platelet Count 304, Mean Platelet Volume 5.5L, Neutrophils (%) (Auto) , Lymphocytes (%) ( Auto) , Monocytes (%) (Auto) , Eosinophils (%) (Auto) , Basophils (%) (Auto) , Differential Total Cells Counted 100, Neutrophils % (Manual) 81H, Lymphocytes % (Manual) 7L, Monocytes % (Manual) 8, Eosinophils % (Manual) 4H, Basophils % ( Manual) 0, Band Neutrophils 0, Platelet Estimate Adequate, Platelet Morphology Normal, Hypochromasia 1+, Sodium Level 139, Potassium Level 4.2, Chloride Level 102, Carbon Dioxide Level 29, Anion Gap 8, Blood Urea Nitrogen 24H, Creatinine 0.8, Estimat Glomerular Filtration Rate > 60, Glucose Level 106, Calcium Level 8.6, Total Bilirubin 0.2, Aspartate Amino Transf (AST/SGOT) 30, Alanine Aminotransferase (ALT/SGPT) 25, Alkaline Phosphatase 129H, Total Protein 6.7, Albumin 1.6L, Globulin 5.1, Albumin/Globulin Ratio 0.3L Height (Feet): 5 Height (Inches): 1.00 Weight (Pounds): 127 Objective General Appearance: NAD, non-verbal, awake, alert, cachetic, appears comfortable in bed HEENT: NCAT, MMM, EOMi CV: RRR Respiratory: lungs clear, normal breath sounds, no respiratory distress Abdomen: non tender, soft, +PEG tube, c/d/i Ext: Contracted bilaterally, multiple abrasions wrapped in bandages C/D/I Skin: PPM in right upper chest wall Lorna Uribe M.D. Feb 24, 2020 10:25
[2020-02-24 12:00] VITALS: BP 117/69
--- NOTE | 2020-02-24 13:30 | Nephrology Progress Note ---
Assessment/Plan Plan #hypernatremia due to free water deficit of close to 3L-improved #sepsis due to Citrobacter bacteremia and pyelonephritis #h/o CVA with hemiplegia #DM #COPD # hyperlipidemia #hypothyroidism # GERD # unspecified CHF, S/p PPM # possible hydronephrosis on CT -> monitor off IVF -> monitor for ANGELICA _> CT abd/pelvis w con done on 02/14- s/p left ureteral stent 02/18 - amlodipine 10mg daily - decreased free water flushes to 150 q6hr - monitor bmp daily - continue abx - avoid nephrotoxins - strict I&Os - daily weights - monitor lytes - urology eval -CT abd/pelvis w con done on 02/14- - monitor Cr closely Subjective ROS Limited/Unobtainable: Yes Subjective CT abd/pelvis w con done on 02/14- s/p left ureteral stent 02/18 WBC 15 renal function and electrolytes stable Renal US: Impression: Moderate to severe left hydronephrosis versus parapelvic cysts mimicking hydronephrosis, versus combination of both. This also described on recent CT scan Atrophic right kidney. Mild right renal collecting system fullness, significance/etiology uncertain Objective Objective Last 24 Hour Vital Signs Date Time Temp Pulse Resp B/P (MAP) Pulse Ox O2 Delivery O2 Flow Rate FiO2 02/24/20 12:00 97.9 92 17 117/69 (85) 98 02/24/20 10:08 108 133/79 02/24/20 10:08 108 133/79 02/24/20 08:00 98.1 108 20 133/79 (97) 98 02/24/20 04:00 98.1 103 24 133/78 (96) 96 02/24/20 00:00 97.9 92 24 122/71 (88) 94 02/23/20 21:59 108 130/71 02/23/20 21:00 Room Air 02/23/20 20:00 98.4 111 24 109/71 (84) 97 02/23/20 16:00 98.2 104 22 136/72 (93) 98 Intake and Output 02/23/20 02/24/20 19:00 07:00 Intake Total 315 ml 800 ml Output Total 950 ml 950 ml Balance -635 ml -150 ml Free Water 200 ml 200 ml IV Total 55 ml Tube Feeding 60 ml 600 ml Output Urine Total 950 ml 950 ml # Voids 2 # Bowel Movements 3 2 Laboratory Tests 02/24/20 08:10: White Blood Count 15.1H, Red Blood Count 3.56L, Hemoglobin 9.9L, Hematocrit 29.3L, Mean Corpuscular Volume 82, Mean Corpuscular Hemoglobin 27.8, Mean Corpuscular Hemoglobin Concent 33.8, Red Cell Distribution Width 13.9, Platelet Count 304, Mean Platelet Volume 5.5L, Neutrophils (%) (Auto) , Lymphocytes (%) ( Auto) , Monocytes (%) (Auto) , Eosinophils (%) (Auto) , Basophils (%) (Auto) , Differential Total Cells Counted 100, Neutrophils % (Manual) 81H, Lymphocytes % (Manual) 7L, Monocytes % (Manual) 8, Eosinophils % (Manual) 4H, Basophils % ( Manual) 0, Band Neutrophils 0, Platelet Estimate Adequate, Platelet Morphology Normal, Hypochromasia 1+, Sodium Level 139, Potassium Level 4.2, Chloride Level 102, Carbon Dioxide Level 29, Anion Gap 8, Blood Urea Nitrogen 24H, Creatinine 0.8, Estimat Glomerular Filtration Rate > 60, Glucose Level 106, Calcium Level 8.6, Total Bilirubin 0.2, Aspartate Amino Transf (AST/SGOT) 30, Alanine Aminotransferase (ALT/SGPT) 25, Alkaline Phosphatase 129H, Total Protein 6.7, Albumin 1.6L, Globulin 5.1, Albumin/Globulin Ratio 0.3L Height (Feet): 5 Height (Inches): 1.00 Weight (Pounds): 127 Objective General Appearance: NAD, otherwise awake, alert, confused Neck: normal alignment, supple CV: RRR Respiratory: lungs clear, normal breath sounds, no respiratory distress Abdomen: non tender, soft, +PEG tube, c/d/i Ext: Contracted bilaterally, multiple abrasions wrapped in bandages C/D/I Cathy Fuller M.D. Feb 24, 2020 13:30
--- NOTE | 2020-02-24 15:12 | Surgery Progress Note ---
Surgery Progress Note Subjective Additional Comments no acute eveents wbc 15.1k wounds evaluated at bedside not worse but not getting much better unlikely etiology of leukocytosis Objective Last 24 Hour Vital Signs Date Time Temp Pulse Resp B/P (MAP) Pulse Ox O2 Delivery O2 Flow Rate FiO2 02/24/20 12:00 97.9 92 17 117/69 (85) 98 02/24/20 10:08 108 133/79 02/24/20 10:08 108 133/79 02/24/20 09:00 Room Air 02/24/20 08:00 98.1 108 20 133/79 (97) 98 02/24/20 04:00 98.1 103 24 133/78 (96) 96 02/24/20 00:00 97.9 92 24 122/71 (88) 94 02/23/20 21:59 108 130/71 02/23/20 21:00 Room Air 02/23/20 20:00 98.4 111 24 109/71 (84) 97 02/23/20 16:00 98.2 104 22 136/72 (93) 98 I&O Intake and Output 02/23/20 02/24/20 19:00 07:00 Intake Total 315 ml 800 ml Output Total 950 ml 950 ml Balance -635 ml -150 ml Free Water 200 ml 200 ml IV Total 55 ml Tube Feeding 60 ml 600 ml Output Urine Total 950 ml 950 ml # Voids 2 # Bowel Movements 3 2 Dressing: saturated Wound: other Drains: other Cardiovascular: RSR Respiratory: decreased breath sounds Abdomen: soft, non-tender, present bowel sounds Extremities: no cyanosis, other Laboratory Tests Test 02/24/20 08:10 White Blood Count 15.1 K/UL (4.8-10.8) H Red Blood Count 3.56 M/UL (4.20-5.40) L Hemoglobin 9.9 G/DL (12.0-16.0) L Hematocrit 29.3 % (37.0-47.0) L Mean Corpuscular Volume 82 FL (80-99) Mean Corpuscular Hemoglobin 27.8 PG (27.0-31.0) Mean Corpuscular Hemoglobin Concent 33.8 G/DL (32.0-36.0) Red Cell Distribution Width 13.9 % (11.6-14.8) Platelet Count 304 K/UL (150-450) Mean Platelet Volume 5.5 FL (6.5-10.1) L Neutrophils (%) (Auto) % (45.0-75.0) Lymphocytes (%) (Auto) % (20.0-45.0) Monocytes (%) (Auto) % (1.0-10.0) Eosinophils (%) (Auto) % (0.0-3.0) Basophils (%) (Auto) % (0.0-2.0) Differential Total Cells Counted 100 Neutrophils % (Manual) 81 % (45-75) H Lymphocytes % (Manual) 7 % (20-45) L Monocytes % (Manual) 8 % (1-10) Eosinophils % (Manual) 4 % (0-3) H Basophils % (Manual) 0 % (0-2) Band Neutrophils 0 % (0-8) Platelet Estimate Adequate Platelet Morphology Normal Hypochromasia 1+ Sodium Level 139 MMOL/L (136-145) Potassium Level 4.2 MMOL/L (3.5-5.1) Chloride Level 102 MMOL/L (98-107) Carbon Dioxide Level 29 MMOL/L (21-32) Anion Gap 8 mmol/L (5-15) Blood Urea Nitrogen 24 mg/dL (7-18) H Creatinine 0.8 MG/DL (0.55-1.30) Estimat Glomerular Filtration Rate > 60 mL/min (>60) Glucose Level 106 MG/DL (74-106) Calcium Level 8.6 MG/DL (8.5-10.1) Total Bilirubin 0.2 MG/DL (0.2-1.0) Aspartate Amino Transf (AST/SGOT) 30 U/L (15-37) Alanine Aminotransferase (ALT/SGPT) 25 U/L (12-78) Alkaline Phosphatase 129 U/L (46-116) H Total Protein 6.7 G/DL (6.4-8.2) Albumin 1.6 G/DL (3.4-5.0) L Globulin 5.1 g/dL Albumin/Globulin Ratio 0.3 (1.0-2.7) L Plan Problems: (1) Septic shock Assessment & Plan: Patient presented to emergency department with sepsis hypotension tachycardia lactic acidosis leukocytosis. On IV antibiotics Labs improving IV hydration Continue tube feeds advance goal as tolerated Abdominal exam does elicit patient to retract a bit but she is not tender peritonitis or without rebound or significant guarding. exam improved Likely startle effect rather than intra-abdominal pathology will follow with serial exams continue with current care plan thank you for let me participate in patient's care leukocytosis. c diff negative. blood cultures noted abx as per ID Severe left hydronephrosis versus parapelvic cysts. No definite obstructing stone. Mild bladder wall thickening with small gas foci in the bladder, concerning for cystitis. Please correlate with urinalysis. Acute NSTEMI with peak troponin 31 as per cardiology wbc fever micro worsening leukocytosis improving labs improved downgraded exam stable labs ordered -Small bilateral pleural effusions with passive atelectasis and lung base motion artifact. -Pacer device leads in the heart. -Tovar catheter in the decompressed urinary bladder. - No urolithiasis seen. -Consider left renal collecting system infection/UTI/pyelonephritis in the proper context given moderate left perinephric stranding which is asymmetric compared with the right. -Similar to prior study left inferior renal moiety moderate hydronephrosis without visualized cause. 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 -If there is further desire to evaluate collecting system dilation, consider repeating the study with CT hematuria protocol. -Sacral decubitus ulcer, correlate with presentation. - Rapid transit of contrast through the GI tract could be incidental or could be seen with an infectious or inflammatory enteritis. -Indeterminate left adrenal 2.1 cm enhancing nodule, if felt to alter clinical management consider additional evaluation adrenal gland. CONSIDER correlation with prior imaging studies. -Right renal cortical scarring due to old infectious or ischemic insults. -Atherosclerotic vascular disease. - Hysterectomy. -Unchanged osteopenia and degenerative spine findings. Unchanged old right possible lesser trochanter fracture versus extensive right hip capsular calcifications. 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 The lower pole collecting system is markedly hydronephrotic. The upper pole collecting system is normal in appearance. There is inflammatory change surrounding the lower pole of the left kidney, with some fluid tracking caudad along Gerota's fascia. There is either a cyst or dilated calyx in the left lower pole, suspect the latter as this appears to communicate with the collecting system along the anterior border of the kidney, best visualized on the sagittal reconstructed images. No obstructing stone or mass is demonstrated. There is no hydroureter. The upper pole collecting system is nondilated. There is probably only a single left ureter, but this cannot be stated for certain. The right kidney demonstrates subcentimeter low-attenuation lesions which are too small to characterize, most likely benign simple cysts. There is a Tovar catheter within the bladder, which contains some gas presumably related to the Tovar catheterization. There are retrococcygeal decubitus changes and suspicion for some ulceration. This is more evident than on the prior exam. No definite osseous destruction. The liver, gallbladder, bile ducts, pancreas, spleen, adrenals are unremarkable. No retroperitoneal or mesenteric mass or adenopathy. No pelvic mass or adenopathy. The uterus is absent. Ingested contrast has reached the distal colon, and there is some evidence of rectal fecal incontinence. No evidence of colonic diverticulosis or diverticulitis. The appendix is normal. No small bowel distention. No small bowel wall thickening. There is a small amount of free pelvic fluid. Distal esophagus is unremarkable. The stomach contains a gastrostomy which appears to be well positioned. Fairly extensive chronic degenerative changes are seen about both hips. There is some infiltration of the subcutaneous fat in the bilateral neck regions which is nonspecific. There are degenerative changes of the lumbar spine Included lung bases demonstrate small bilateral pleural effusions. Hazy parenchymal disease is seen in the bilateral lower lobes. 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 Inflammatory change is seen surrounding the lower pole left kidney. This is new since the prior exam, could inflammation secondary to acute obstruction versus infection, suspect the latter. Etiology of obstruction not demonstrated, could a congenital ureteropelvic junction obstruction Retrococcygeal decubitus changes and possibly ulceration. Correlate with clinical findings Bilateral pleural effusions. This is new since the previous study. 1.6 cm left adrenal mass, much more clearly demonstrated on the previous exam. Consider follow-up with adrenal protocol CT if this would affect management Gastrostomy, Tovar catheter, pacemaker incidentally noted Evidence of prior hysterectomy Incidental findings of degenerative disc disease, bilateral hip degenerative changes (2) Decubitus skin ulcer Assessment & Plan: 84-year-old female presented on admission with multiple decubitus skin ulcers and skin concerns. Patient identified to have a unstageable sacral lower back decubitus ulcer, periwound maceration, area of necrotic eschar soft, no drainage, no abscess, no foul odor Pt presented on admission with contractures, Multiple Pressure injuries.open DTPI sacrum.Wound is open at sacrococcygeal area(40%), with soft necrotic base ( L)5.5cm x (W)4.5cm. Surrounding base of wound is maroon and indurated. Total area of sacral DTPI measures(L) 12.5cm x (W)15cm. Non-blanching erythema periwound.In addition several small partial thickness wounds noted along Perineum.` Areas of hyperpigmentation noted to L and R trochanteric. Full thickness wound R knee.(L)1.1cm x (W)1.5cm.1 Base of wound 90% pink granulation,10% slough noted in center of wound. Borders are macerated.small amt serous exudate. No odor noted. No erythema or fluctuance noted periwound. Non-blanching erythema with fluctuance R heel. Unstageable pressure injury R hallux. Base of wound is 100% soft necrosis. Edges adherent and dry.No odor or exudate noted.Surrounding darker skin tone without erythema or fluctuance(L)2.6cm x (W)3cm. DTPI R Ankle(L)0.9cm x (W)1.6cm. Base of wound is fluctuant, maroon with marginal erythema. Periwound without erythema or fluctuance. Unstageable pressure injury distal/lateral R foot. Base of wound 100% soft necrosis with surrounding non-blanching erythema with fluctuance.(L)2cm x (W) 0.9cm. Stable dry eschar medial/lateral R foot (L)0.4cm x (W)0.8cm. Stable dry eschar lateral L heel.(L)1.9cm x (W)2.2cm. No erythema or fluctuance periwound. Unstable pressure injury medial/lateral L foot. Base of wound is 100% necrotic but dry.(L)0.7cm x (W)0.8cm. Unstageable pressure injury distal/lateral L foot. Base of wound is 100% necrotic but dry. (L)1.2cm x (W)1.6cm.non-blanching erythema without fluctuance periwound. Non-blanching erythema without fluctuance lateral L 5th metatarsal.(L)1.5cm x (W )0.5cm. Open DTPI L Hallux.Base of wound has mixed necrosis and slough with surrounding base of wound maroon with fluctuance. Non-blanching erythema without elevation in skin temp,or fluctuance periwound. Tx.plan: Cleanse Sacral wound with Saline. Apply TheraHoney. Apply Moisture Barrier Paste Periwound. Cover with Optifoam drsg. Change Daily and prn. Swab R nee with Betadine. Cover with Optifoam drsg every 3 days and prn. Swab wounds R foot with Betadine. Cover each wound with Optifoam drsg. Change every 3 days and prn. Swab wounds L foot with Betadine. Cover each wound with Optifoam drsg. Change every 3 days and prn. Reposition at least every 2hours or as tolerated. Place pillow between knees. Off-load heels with Pillow. APM/ARIEL Mattress. DAILY ESTIMATED NEEDS: Needs based on Wounds, underweight 50kg 30-35 kcals/kg 7517-7213 total kcals 1.25-2 g protein/kg 63-100 g total protein 25-30 mL/kg 6976-5827 total fluid mLs NUTRITION DIAGNOSIS: Increased kcal and pro needs r/t underweight status and wound healing as evidenced by pt @85% [place] Body Weight w/ multiple wounds, eval pending, pt is PEG dep. CURRENT TF:Glucerna 1.5 @60ml x20 hrs ENTERAL NUTRITION RECOMMENDATIONS: Maintain current TF as tolerated: Glucerna 1.5 @60ml/hr x20 hrs to provide 1200ml, 1800 kcal, 99g pro, 911ml free H2o -> Monitor for hypoglycemia and need to change to non carb control formula -> Flush per MD. HOB over 30 degrees ADDITIONAL RECOMMENDATIONS: 1) On iso, per SNF pt is: 65 inches + 110#/50kg 2) Wound care: add MATT in 4oz H2O BID via GT F/up w/ WC eval 3) Maintain calibrated bed scale wts 4) Monitor for continued hypoglycemic events, need for D5 or TF change Luther Mercedes Feb 24, 2020 15:12
[2020-02-24 16:00] VITALS: BP 116/72
[2020-02-24] MEDS: cefTRIAXone 1 GM in D5W 55 ML IVPB SCH (18:24)
--- NOTE | 2020-02-24 18:34 | Infectious Diseases Prog Note ---
Assessment/Plan Assessment/Plan A) 1) citrobacter bacteremia, vre/enterococcus uti with enterococcus/vre bacteremia , source, sepsis, leukocytosis fungemia risk new pna on chest x-ray - likely aspiration/hcap - f/u CT noted, c/w hydronephrosis and pyelonephritis - s/p stent placement - c.diff. - negative - leukocytosis slowly improving 2) covid testing - negative 3) dm, hyperlipidemia, ? htn, hypothyroidism, cva, anemia, hemiplegia, ckd, gerd , copd, chf, ppm 4) allergies - nkda, fh-nc, sh-negative, mar noted, notes and records noted 5) d/w RN P) 1) change to zosyn, zyvox and diflucan 2) f/u on sc, labs and chest x-ray 3) s/p stent 4) leukocytosis better slowly 5) will f/u Subjective Constitutional: Denies: fever HEENT: Denies: congestion Respiratory: Denies: shortness of breath Cardiovascular: Denies: chest pain Gastrointestinal/Abdominal: Denies: nausea, vomiting, diarrhea Genitourinary: Reports: other - + john Neurologic: Denies: headache Psychiatric: Denies: depression Skin: Denies: rash Hematologic: Denies: bleeding Musculoskeletal: Denies: pain Allergies: Coded Allergies: No Known Allergies (Unverified , 01/30/20) Objective Vital Signs Last 24 Hour Vital Signs Date Time Temp Pulse Resp B/P (MAP) Pulse Ox O2 Delivery O2 Flow Rate FiO2 02/24/20 12:00 97.9 92 17 117/69 (85) 98 02/24/20 10:08 108 133/79 02/24/20 10:08 108 133/79 02/24/20 09:00 Room Air 02/24/20 08:00 98.1 108 20 133/79 (97) 98 02/24/20 04:00 98.1 103 24 133/78 (96) 96 02/24/20 00:00 97.9 92 24 122/71 (88) 94 02/23/20 21:59 108 130/71 02/23/20 21:00 Room Air 02/23/20 20:00 98.4 111 24 109/71 (84) 97 Height (Feet): 5 Height (Inches): 1.00 Weight (Pounds): 127 General Appearance: no acute distress HEENT: normocephalic, atraumatic, anicteric, mucous membranes moist Respiratory/Chest: no accessory muscle use, crackles/rales, rhonchi - bilaterally Cardiovascular: normal rate, regular rhythm, no gallop/murmur, no JVD Abdomen: normal bowel sounds, soft, non tender, no organomegaly, non distended Genitourinary: other - + john - urine slt cloudy Extremities: no cyanosis Skin: no rash 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 The heart size is normal. There is a right chest biventricular pacemaker Impression: No acute process CT abdomen and pelvis: IMPRESSION: 1. Examination is limited by motion artifact. 2. Trace left pleural effusion. 3. Severe left hydronephrosis versus parapelvic cysts. No definite obstructing stone. 4. Mild bladder wall thickening with small gas foci in the bladder, concerning for cystitis. Please correlate with urinalysis. CT ABDOMEN + PELVIS With Contrast: Prior 02/09/2020 Impression -Small bilateral pleural effusions with passive atelectasis and lung base motion artifact. -Pacer device leads in the heart. -John catheter in the decompressed urinary bladder. - No urolithiasis seen. -Consider left renal collecting system infection/UTI/pyelonephritis in the proper context given moderate left perinephric stranding which is asymmetric compared with the right. -Similar to prior study left inferior renal moiety moderate hydronephrosis without visualized cause. 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 -If there is further desire to evaluate collecting system dilation, consider repeating the study with CT hematuria protocol. -Sacral decubitus ulcer, correlate with presentation. - Rapid transit of contrast through the GI tract could be incidental or could be seen with an infectious or inflammatory enteritis. -Indeterminate left adrenal 2.1 cm enhancing nodule, if felt to alter clinical management consider additional evaluation adrenal gland. CONSIDER correlation with prior imaging studies. -Right renal cortical scarring due to old infectious or ischemic insults. -Atherosclerotic vascular disease. - Hysterectomy. -Unchanged osteopenia and degenerative spine findings. Unchanged old right possible lesser trochanter fracture versus extensive right hip capsular calcifications. Procedure: XRAY Chest 1v - 02/15/20- Indication: Dyspnea Comparison: 02/11/2020 A single view chest radiograph was obtained. Findings: No definite infiltrate or pulmonary vascular congestion identified. The heart is enlarged. The aorta is mildly enlarged consistent with atherosclerotic vascular disease. The bones are osteopenic. There are thoracic vertebral enthesophytes at multiple levels. Pacemaker noted on the right. Impression: No acute disease Chest x-ray - 02/23/20 - Procedure: XRAY Chest 1v EXAM: XR Chest, 1 View CLINICAL HISTORY: INFECT TECHNIQUE: Frontal view of the chest. COMPARISON: 02/15/20 FINDINGS: Lungs: There is been development of bilateral lower lobe infiltrates, left greater than right consistent with nonspecific pneumonia. Pleural space: There is been development of small bilateral pleural effusions. No pneumothorax. Heart: The heart size is at the upper limits of normal. Mediastinum: Unremarkable. Bones/joints: Unremarkable. Tubes, lines and devices: There right subclavian cardiac leads in unchanged position. IMPRESSION: There is been development of bilateral lower lobe infiltrates, left greater than right consistent with nonspecific pneumonia. Microbiology Date/Time Source Procedure Growth Status 02/22/20 14:45 Blood Blood Culture - Preliminary NO GROWTH AFTER 24 HOURS Resulted 01/30/20 15:45 Nasal Nares MRSA Culture - Final NO METHICILLIN RESISTANT STAPH AUREUS... Complete 02/15/20 06:00 Stool Clostridium difficile Toxin Assay - Final Complete 02/22/20 16:03 Indwelling Cath Urine Culture - Preliminary NO GROWTH AFTER 24 HOURS Resulted 01/30/20 15:45 Rectum VRE Culture - Final NO VANCOMYCIN RESISTANT ENTEROCOCCUS ... Complete Microbiology Date/Time Source Procedure Growth Status 02/22/20 14:45 Blood Blood Culture - Preliminary NO GROWTH AFTER 24 HOURS Resulted 02/22/20 14:45 Blood Blood Culture - Preliminary NO GROWTH AFTER 24 HOURS Resulted 02/22/20 16:03 Indwelling Cath Urine Culture - Preliminary NO GROWTH AFTER 24 HOURS Resulted Laboratory Tests Test 02/24/20 08:10 White Blood Count 15.1 K/UL (4.8-10.8) H Red Blood Count 3.56 M/UL (4.20-5.40) L Hemoglobin 9.9 G/DL (12.0-16.0) L Hematocrit 29.3 % (37.0-47.0) L Mean Corpuscular Volume 82 FL (80-99) Mean Corpuscular Hemoglobin 27.8 PG (27.0-31.0) Mean Corpuscular Hemoglobin Concent 33.8 G/DL (32.0-36.0) Red Cell Distribution Width 13.9 % (11.6-14.8) Platelet Count 304 K/UL (150-450) Mean Platelet Volume 5.5 FL (6.5-10.1) L Neutrophils (%) (Auto) % (45.0-75.0) Lymphocytes (%) (Auto) % (20.0-45.0) Monocytes (%) (Auto) % (1.0-10.0) Eosinophils (%) (Auto) % (0.0-3.0) Basophils (%) (Auto) % (0.0-2.0) Differential Total Cells Counted 100 Neutrophils % (Manual) 81 % (45-75) H Lymphocytes % (Manual) 7 % (20-45) L Monocytes % (Manual) 8 % (1-10) Eosinophils % (Manual) 4 % (0-3) H Basophils % (Manual) 0 % (0-2) Band Neutrophils 0 % (0-8) Platelet Estimate Adequate Platelet Morphology Normal Hypochromasia 1+ Sodium Level 139 MMOL/L (136-145) Potassium Level 4.2 MMOL/L (3.5-5.1) Chloride Level 102 MMOL/L (98-107) Carbon Dioxide Level 29 MMOL/L (21-32) Anion Gap 8 mmol/L (5-15) Blood Urea Nitrogen 24 mg/dL (7-18) H Creatinine 0.8 MG/DL (0.55-1.30) Estimat Glomerular Filtration Rate > 60 mL/min (>60) Glucose Level 106 MG/DL (74-106) Calcium Level 8.6 MG/DL (8.5-10.1) Total Bilirubin 0.2 MG/DL (0.2-1.0) Aspartate Amino Transf (AST/SGOT) 30 U/L (15-37) Alanine Aminotransferase (ALT/SGPT) 25 U/L (12-78) Alkaline Phosphatase 129 U/L (46-116) H Total Protein 6.7 G/DL (6.4-8.2) Albumin 1.6 G/DL (3.4-5.0) L Globulin 5.1 g/dL Albumin/Globulin Ratio 0.3 (1.0-2.7) L Current Medications Medications (Trade) Dose Ordered Sig/Moreno Route PRN Reason Start Time Stop Time Status Last Admin Dose Admin Acetaminophen (Tylenol) 650 mg Q4H PRN GT MILD/TEMP 02/20/20 17:24 03/08/20 17:23 Amlodipine Besylate (Norvasc) 10 mg DAILY ORAL 02/21/20 09:00 03/17/20 08:59 02/24/20 10:08 Aspirin (ASA) 81 mg DAILY GT 02/21/20 09:00 03/27/20 08:59 02/24/20 10:08 Atorvastatin Calcium (Lipitor) 40 mg BEDTIME ORAL 02/20/20 21:00 04/29/20 20:59 02/23/20 21:59 Ceftriaxone Sodium 1 gm/ Dextrose 55 ml @ 110 mls/hr Q24H IVPB 02/22/20 18:15 02/27/20 17:29 02/23/20 17:29 Dextrose (Dextrose 50%) 25 ml Q30M PRN IV Hypoglycemia 02/20/20 17:30 04/29/20 18:59 Dextrose (Dextrose 50%) 50 ml Q30M PRN IV Hypoglycemia 02/20/20 17:30 04/29/20 18:59 Diphenhydramine HCl (Benadryl) 25 mg Q6H PRN ORAL Itching/Pruritis 02/20/20 17:27 03/10/20 17:26 Diphenoxylate HCl/ Atropine (Lomotil) 2.5 mg Q4H PRN GT Diarrhea 02/20/20 17:28 03/08/20 17:27 Fluconazole (Diflucan) 200 mg DAILY ORAL 02/21/20 09:00 02/28/20 08:59 02/24/20 10:07 Levothyroxine Sodium (Synthroid) 25 mcg DAILY@0630 ORAL 02/21/20 06:30 03/01/20 06:29 02/24/20 06:00 Linezolid (Zyvox) 600 mg EVERY 12 HOURS ORAL 02/20/20 21:00 02/25/20 20:59 02/24/20 10:08 Loperamide HCl (Imodium) 2 mg Q3H PRN NG Diarrhea 02/20/20 18:45 03/11/20 12:44 Metoprolol Tartrate (Lopressor) 50 mg Q12HR GT 02/20/20 21:00 05/13/20 08:59 02/24/20 10:08 Ondansetron HCl (Zofran) 4 mg Q6H PRN IVP Nausea & Vomiting 02/20/20 21:00 02/29/20 14:59 Abiodun Jacobo MD Feb 24, 2020 18:33
[2020-02-24 20:00] VITALS: BP 125/78
--- NOTE | 2020-02-24 20:45 | Neurology Progress Note ---
Interim History Interim History ROS Limited/Unobtainable: Yes Interim History no new deficits Objective Physical Exam Last Vital Signs Date Time Temp Pulse Resp B/P (MAP) Pulse Ox O2 Delivery O2 Flow Rate FiO2 02/24/20 16:00 97.8 98 19 116/72 (87) 98 02/24/20 09:00 Room Air 02/18/20 16:20 3 Laboratory Tests Test 02/24/20 08:10 White Blood Count 15.1 K/UL (4.8-10.8) H Red Blood Count 3.56 M/UL (4.20-5.40) L Hemoglobin 9.9 G/DL (12.0-16.0) L Hematocrit 29.3 % (37.0-47.0) L Mean Corpuscular Volume 82 FL (80-99) Mean Corpuscular Hemoglobin 27.8 PG (27.0-31.0) Mean Corpuscular Hemoglobin Concent 33.8 G/DL (32.0-36.0) Red Cell Distribution Width 13.9 % (11.6-14.8) Platelet Count 304 K/UL (150-450) Mean Platelet Volume 5.5 FL (6.5-10.1) L Neutrophils (%) (Auto) % (45.0-75.0) Lymphocytes (%) (Auto) % (20.0-45.0) Monocytes (%) (Auto) % (1.0-10.0) Eosinophils (%) (Auto) % (0.0-3.0) Basophils (%) (Auto) % (0.0-2.0) Differential Total Cells Counted 100 Neutrophils % (Manual) 81 % (45-75) H Lymphocytes % (Manual) 7 % (20-45) L Monocytes % (Manual) 8 % (1-10) Eosinophils % (Manual) 4 % (0-3) H Basophils % (Manual) 0 % (0-2) Band Neutrophils 0 % (0-8) Platelet Estimate Adequate Platelet Morphology Normal Hypochromasia 1+ Sodium Level 139 MMOL/L (136-145) Potassium Level 4.2 MMOL/L (3.5-5.1) Chloride Level 102 MMOL/L (98-107) Carbon Dioxide Level 29 MMOL/L (21-32) Anion Gap 8 mmol/L (5-15) Blood Urea Nitrogen 24 mg/dL (7-18) H Creatinine 0.8 MG/DL (0.55-1.30) Estimat Glomerular Filtration Rate > 60 mL/min (>60) Glucose Level 106 MG/DL (74-106) Calcium Level 8.6 MG/DL (8.5-10.1) Total Bilirubin 0.2 MG/DL (0.2-1.0) Aspartate Amino Transf (AST/SGOT) 30 U/L (15-37) Alanine Aminotransferase (ALT/SGPT) 25 U/L (12-78) Alkaline Phosphatase 129 U/L (46-116) H Total Protein 6.7 G/DL (6.4-8.2) Albumin 1.6 G/DL (3.4-5.0) L Globulin 5.1 g/dL Albumin/Globulin Ratio 0.3 (1.0-2.7) L Head: normocophalic, atraumatic Neck: no rigidity EENT: benign Neurologic Exam Sensory: other - cc 35 min Objective alert, tracks with eyes, Right sided weaker than left Impression/Recommendations Problems: (1) Septic shock (2) Anemia (3) Elevated troponin (4) Sepsis (5) Decubitus skin ulcer Status: stable Diagnostic Impression Acute encephalopathy in the context of sepsis Dementia, likely vascular Hx of strokes Monitor neuro exam Delirium precautions atb per primary asa daily PT OT Luis Nash MD Feb 24, 2020 20:45
[2020-02-24] MEDS: Atorvastatin 20mg tab ORAL SCH (21:01)
[2020-02-25] VITALS: BP 117/71
[2020-02-25 04:00] VITALS: BP 133/84
[2020-02-25] MEDS: Levothyroxine 25mcg tab ORAL SCH (05:59)
[2020-02-25 07:18] LABS: ALANINE AMINOTRANSFERASE 33 U/L (12-78); ALBUMIN 1.7 G/DL (3.4-5.0); ALBUMIN/GLOBULIN RATIO 0.3 (1.0-2.7); ALKALINE PHOSPHATASE 126 U/L (46-116); ANION GAP 12 mmol/L (5-15); ASPARTATE AMINO TRANSFERASE 34 U/L (15-37); BILIRUBIN,TOTAL 0.2 MG/DL (0.2-1.0); BLOOD UREA NITROGEN 24 mg/dL (7-18); CALCIUM 8.2 MG/DL (8.5-10.1); CARBON DIOXIDE 25 MMOL/L (21-32); CHLORIDE 104 MMOL/L (98-107); CREATININE 0.9 MG/DL (0.55-1.30); POTASSIUM 4.7 MMOL/L (3.5-5.1); SODIUM 141 MMOL/L (136-145)
[2020-02-25 07:20] LABS: BASOPHILS % (AUTO) 1.3 % (0.0-2.0); EOSINOPHILS % (AUTO) 1.4 % (0.0-3.0); HEMATOCRIT 30.2 % (37.0-47.0); HEMOGLOBIN 10.2 G/DL (12.0-16.0); LYMPHOCYTES % (AUTO) 9.1 % (20.0-45.0); MEAN CORPUSCULAR VOLUME 81 FL (80-99); MONOCYTES % (AUTO) 4.5 % (1.0-10.0); NEUTROPHILS % (AUTO) 83.7 % (45.0-75.0); PLATELET COUNT 301 K/UL (150-450); RED BLOOD COUNT 3.72 M/UL (4.20-5.40); RED CELL DISTRIBUTION WIDTH 14.9 % (11.6-14.8); WHITE BLOOD COUNT 15.3 K/UL (4.8-10.8)
[2020-02-25 08:00] VITALS: BP 127/80
--- NOTE | 2020-02-25 08:52 | Urology Progress Note ---
Assessment/Plan Status: stable Assessment/Plan: 1. Left-sided hydronephrosis. 2. Urinary retention. 3. Neurogenic bladder. 4. Proteinuria. 5. Hematuria. 6. Pyuria. 7. Sepsis history. 8. Cystitis. 9. likely renal cyst. 10. POD # 7, left ureteral stent monitor clinically john remains indwelling hand irrigated and do PRN monitor renal fxn and WBC, fluctuating on abx, per ID voiding trial? hydro likely chronic, no stones, likely UPJ obst stent placed f/u on last blood cx voiding trial at some point? d/w primary service Subjective Allergies: Coded Allergies: No Known Allergies (Unverified , 01/30/20) Subjective all noted, doing fair Objective Last 24 Hour Vital Signs Date Time Temp Pulse Resp B/P (MAP) Pulse Ox O2 Delivery O2 Flow Rate FiO2 02/25/20 08:00 97.6 104 20 127/80 (96) 95 02/25/20 04:00 97.8 104 20 133/84 (100) 95 02/25/20 00:00 97.8 95 21 117/71 (86) 95 02/24/20 21:01 105 130/78 02/24/20 21:00 Room Air 02/24/20 20:00 98.2 107 22 125/78 (94) 96 02/24/20 16:00 97.8 98 19 116/72 (87) 98 02/24/20 12:00 97.9 92 17 117/69 (85) 98 02/24/20 10:08 108 133/79 02/24/20 10:08 108 133/79 02/24/20 09:00 Room Air Intake and Output 02/24/20 02/25/20 19:00 07:00 Intake Total 60 ml 1160 ml Output Total 1300 ml Balance 60 ml -140 ml Free Water 400 ml IV Total 100 ml Tube Feeding 60 ml 660 ml Output Urine Total 1300 ml # Bowel Movements 2 Microbiology Date/Time Source Procedure Growth Status 02/22/20 14:45 Blood Blood Culture - Preliminary NO GROWTH AFTER 48 HOURS Resulted 02/24/20 22:15 Sputum Gram Stain - Final Resulted 02/24/20 22:15 Sputum Sputum Culture Pending Resulted 02/15/20 06:00 Stool Clostridium difficile Toxin Assay - Final Complete 02/22/20 16:03 Indwelling Cath Urine Culture - Final NO GROWTH AFTER 48 HOURS Complete 01/30/20 15:45 Rectum VRE Culture - Final NO VANCOMYCIN RESISTANT ENTEROCOCCUS ... Complete Current Medications Medications (Trade) Dose Ordered Sig/Moreno Route PRN Reason Start Time Stop Time Status Last Admin Dose Admin Acetaminophen (Tylenol) 650 mg Q4H PRN GT MILD/TEMP 02/20/20 17:24 03/08/20 17:23 Amlodipine Besylate (Norvasc) 10 mg DAILY ORAL 02/21/20 09:00 03/17/20 08:59 02/24/20 10:08 Aspirin (ASA) 81 mg DAILY GT 02/21/20 09:00 03/27/20 08:59 02/24/20 10:08 Atorvastatin Calcium (Lipitor) 40 mg BEDTIME ORAL 02/20/20 21:00 04/29/20 20:59 02/24/20 21:01 Dextrose (Dextrose 50%) 25 ml Q30M PRN IV Hypoglycemia 02/20/20 17:30 04/29/20 18:59 Dextrose (Dextrose 50%) 50 ml Q30M PRN IV Hypoglycemia 02/20/20 17:30 04/29/20 18:59 Diphenhydramine HCl (Benadryl) 25 mg Q6H PRN ORAL Itching/Pruritis 02/20/20 17:27 03/10/20 17:26 Diphenoxylate HCl/ Atropine (Lomotil) 2.5 mg Q4H PRN GT Diarrhea 02/20/20 17:28 03/08/20 17:27 Fluconazole (Diflucan) 200 mg DAILY ORAL 02/21/20 09:00 02/28/20 08:59 02/24/20 10:07 Levothyroxine Sodium (Synthroid) 25 mcg DAILY@0630 ORAL 02/21/20 06:30 03/01/20 06:29 02/25/20 05:59 Linezolid (Zyvox) 600 mg EVERY 12 HOURS ORAL 02/24/20 21:00 02/29/20 20:59 02/24/20 21:01 Loperamide HCl (Imodium) 2 mg Q3H PRN NG Diarrhea 02/20/20 18:45 03/11/20 12:44 Metoprolol Tartrate (Lopressor) 50 mg Q12HR GT 02/20/20 21:00 05/13/20 08:59 02/24/20 21:01 Ondansetron HCl (Zofran) 4 mg Q6H PRN IVP Nausea & Vomiting 02/20/20 21:00 02/29/20 14:59 Piperacillin Sod/ Tazobactam Sod 3.375 gm/Dextrose 100 ml @ 25 mls/hr EVERY 8 HOURS IVPB 02/24/20 22:00 02/29/20 21:59 02/25/20 05:59 Laboratory Tests 02/25/20 05:45: White Blood Count 15.3H, Red Blood Count 3.72L, Hemoglobin 10.2L, Hematocrit 30.2L, Mean Corpuscular Volume 81, Mean Corpuscular Hemoglobin 27.5, Mean Corpuscular Hemoglobin Concent 33.9, Red Cell Distribution Width 14.9H, Platelet Count 301, Mean Platelet Volume 5.8L, Neutrophils (%) (Auto) 83.7H, Lymphocytes (%) (Auto) 9.1L, Monocytes (%) (Auto) 4.5, Eosinophils (%) (Auto) 1.4, Basophils (%) (Auto) 1.3, Sodium Level 141, Potassium Level 4.7, Chloride Level 104, Carbon Dioxide Level 25, Anion Gap 12, Blood Urea Nitrogen 24H, Creatinine 0.9, Estimat Glomerular Filtration Rate > 60, Glucose Level 105, Calcium Level 8.2L, Total Bilirubin 0.2, Aspartate Amino Transf (AST/SGOT) 34, Alanine Aminotransferase (ALT/SGPT) 33, Alkaline Phosphatase 126H, Total Protein 6.9, Albumin 1.7L, Globulin 5.2, Albumin/Globulin Ratio 0.3L Height (Feet): 5 Height (Inches): 1.00 Weight (Pounds): 127 Objective exam stable john indwelling, yellow/evangelina urine with occasional debris renal u/s (02/11) noted CT A/P with IV contrast (02/14) noted Timothy Leos MD Feb 25, 2020 08:52
--- NOTE | 2020-02-25 09:34 | General Progress Note ---
Assessment/Plan Problem List: (1) Diarrhea ICD Codes: R19.7 - Diarrhea, unspecified SNOMED: 08018065 (2) GI (gastrointestinal bleed) ICD Codes: K92.2 - Gastrointestinal hemorrhage, unspecified SNOMED: 29795161 (3) Elevated troponin ICD Codes: R79.89 - Other specified abnormal findings of blood chemistry; R65.21 - Severe sepsis with septic shock SNOMED: 503063496, 831668119, 424169934 (4) Anemia ICD Codes: D64.9 - Anemia, unspecified SNOMED: 357705478 (5) Septic shock ICD Codes: A41.9 - Sepsis, unspecified organism; R65.21 - Severe sepsis with septic shock SNOMED: 58278785 (6) Decubitus skin ulcer ICD Codes: L89.90 - Pressure ulcer of unspecified site, unspecified stage SNOMED: 645749442 Status: stable Assessment/Plan: diarrhea is better with Lomotil and Imodium neg stool C.diff TF , Glucerna 1.2 COVID >>> neg given active MS and stable H&H will hold GI procedures for now repeat stool ob>>> neg x2 repeat CBC fu ID regarding ABX treatment of Pylo fu repeat CT>>> reviewed>>>fu ID recs fu urology recs for hematuria wound care abx per ID Subjective ROS Limited/Unobtainable: No Allergies: Coded Allergies: No Known Allergies (Unverified , 01/30/20) Objective Last 24 Hour Vital Signs Date Time Temp Pulse Resp B/P (MAP) Pulse Ox O2 Delivery O2 Flow Rate FiO2 02/25/20 08:00 97.6 104 20 127/80 (96) 95 02/25/20 04:00 97.8 104 20 133/84 (100) 95 02/25/20 00:00 97.8 95 21 117/71 (86) 95 02/24/20 21:01 105 130/78 02/24/20 21:00 Room Air 02/24/20 20:00 98.2 107 22 125/78 (94) 96 02/24/20 16:00 97.8 98 19 116/72 (87) 98 02/24/20 12:00 97.9 92 17 117/69 (85) 98 02/24/20 10:08 108 133/79 02/24/20 10:08 108 133/79 Intake and Output 02/24/20 02/25/20 19:00 07:00 Intake Total 60 ml 1160 ml Output Total 1300 ml Balance 60 ml -140 ml Free Water 400 ml IV Total 100 ml Tube Feeding 60 ml 660 ml Output Urine Total 1300 ml # Bowel Movements 2 Laboratory Tests 02/25/20 05:45: White Blood Count 15.3H, Red Blood Count 3.72L, Hemoglobin 10.2L, Hematocrit 30.2L, Mean Corpuscular Volume 81, Mean Corpuscular Hemoglobin 27.5, Mean Corpuscular Hemoglobin Concent 33.9, Red Cell Distribution Width 14.9H, Platelet Count 301, Mean Platelet Volume 5.8L, Neutrophils (%) (Auto) 83.7H, Lymphocytes (%) (Auto) 9.1L, Monocytes (%) (Auto) 4.5, Eosinophils (%) (Auto) 1.4, Basophils (%) (Auto) 1.3, Sodium Level 141, Potassium Level 4.7, Chloride Level 104, Carbon Dioxide Level 25, Anion Gap 12, Blood Urea Nitrogen 24H, Creatinine 0.9, Estimat Glomerular Filtration Rate > 60, Glucose Level 105, Calcium Level 8.2L, Total Bilirubin 0.2, Aspartate Amino Transf (AST/SGOT) 34, Alanine Aminotransferase (ALT/SGPT) 33, Alkaline Phosphatase 126H, Total Protein 6.9, Albumin 1.7L, Globulin 5.2, Albumin/Globulin Ratio 0.3L Height (Feet): 5 Height (Inches): 1.00 Weight (Pounds): 127 General Appearance: no apparent distress EENT: normal ENT inspection Neck: supple Cardiovascular: normal rate Respiratory/Chest: decreased breath sounds Abdomen: normal bowel sounds, non tender, soft Extremities: non-tender Herminio Rodriguez MD Feb 25, 2020 09:34
[2020-02-25] MEDS: Aspirin Baby 81mg GT SCH (09:43)
[2020-02-25] MEDS: Fluconazole 100mg tab ORAL SCH (09:43)
[2020-02-25] MEDS: Metoprolol Tartrate 50mg tab GT SCH ×2 (09:44→21:22)
--- NOTE | 2020-02-25 09:49 | Nephrology Progress Note ---
Assessment/Plan Plan #hypernatremia due to free water deficit of close to 3L-improved #sepsis due to Citrobacter bacteremia and pyelonephritis #h/o CVA with hemiplegia #DM #COPD # hyperlipidemia #hypothyroidism # GERD # unspecified CHF, S/p PPM # possible hydronephrosis on CT -> monitor off IVF -> monitor for ANGELICA _> CT abd/pelvis w con done on 02/14- s/p left ureteral stent 02/18 - amlodipine 10mg daily - decreased free water flushes to 150 q6hr - monitor bmp daily - continue abx - avoid nephrotoxins - strict I&Os - daily weights - monitor lytes - urology eval -CT abd/pelvis w con done on 02/14- - monitor Cr closely Subjective ROS Limited/Unobtainable: Yes Subjective CT abd/pelvis w con done on 02/14- s/p left ureteral stent 02/18 WBC 15 renal function and electrolytes stable Renal US: Impression: Moderate to severe left hydronephrosis versus parapelvic cysts mimicking hydronephrosis, versus combination of both. This also described on recent CT scan Atrophic right kidney. Mild right renal collecting system fullness, significance/etiology uncertain Objective Objective Last 24 Hour Vital Signs Date Time Temp Pulse Resp B/P (MAP) Pulse Ox O2 Delivery O2 Flow Rate FiO2 02/25/20 09:44 104 127/80 02/25/20 09:44 104 127/80 02/25/20 08:00 97.6 104 20 127/80 (96) 95 02/25/20 04:00 97.8 104 20 133/84 (100) 95 02/25/20 00:00 97.8 95 21 117/71 (86) 95 02/24/20 21:01 105 130/78 02/24/20 21:00 Room Air 02/24/20 20:00 98.2 107 22 125/78 (94) 96 02/24/20 16:00 97.8 98 19 116/72 (87) 98 02/24/20 12:00 97.9 92 17 117/69 (85) 98 02/24/20 10:08 108 133/79 02/24/20 10:08 108 133/79 Intake and Output 02/24/20 02/25/20 19:00 07:00 Intake Total 60 ml 1160 ml Output Total 1300 ml Balance 60 ml -140 ml Free Water 400 ml IV Total 100 ml Tube Feeding 60 ml 660 ml Output Urine Total 1300 ml # Bowel Movements 2 Laboratory Tests 02/25/20 05:45: White Blood Count 15.3H, Red Blood Count 3.72L, Hemoglobin 10.2L, Hematocrit 30.2L, Mean Corpuscular Volume 81, Mean Corpuscular Hemoglobin 27.5, Mean Corpuscular Hemoglobin Concent 33.9, Red Cell Distribution Width 14.9H, Platelet Count 301, Mean Platelet Volume 5.8L, Neutrophils (%) (Auto) 83.7H, Lymphocytes (%) (Auto) 9.1L, Monocytes (%) (Auto) 4.5, Eosinophils (%) (Auto) 1.4, Basophils (%) (Auto) 1.3, Sodium Level 141, Potassium Level 4.7, Chloride Level 104, Carbon Dioxide Level 25, Anion Gap 12, Blood Urea Nitrogen 24H, Creatinine 0.9, Estimat Glomerular Filtration Rate > 60, Glucose Level 105, Calcium Level 8.2L, Total Bilirubin 0.2, Aspartate Amino Transf (AST/SGOT) 34, Alanine Aminotransferase (ALT/SGPT) 33, Alkaline Phosphatase 126H, Total Protein 6.9, Albumin 1.7L, Globulin 5.2, Albumin/Globulin Ratio 0.3L Height (Feet): 5 Height (Inches): 1.00 Weight (Pounds): 127 Objective General Appearance: NAD, otherwise awake, alert, confused Neck: normal alignment, supple CV: RRR Respiratory: lungs clear, normal breath sounds, no respiratory distress Abdomen: non tender, soft, +PEG tube, c/d/i Ext: Contracted bilaterally, multiple abrasions wrapped in bandages C/D/I Cathy Fuller M.D. Feb 25, 2020 09:49
[2020-02-25 12:00] VITALS: BP 110/76
--- NOTE | 2020-02-25 12:15 | Surgery Progress Note ---
Surgery Progress Note Subjective Additional Comments Patient developing bilateral infiltrates noted on chest x-ray. Afebrile, hemodynamic stable, persistent leukocytosis. Labs reviewed. Micro reviewed. ID input appreciated. On antibiotics Objective Last 24 Hour Vital Signs Date Time Temp Pulse Resp B/P (MAP) Pulse Ox O2 Delivery O2 Flow Rate FiO2 02/25/20 09:44 104 127/80 02/25/20 09:44 104 127/80 02/25/20 09:00 Room Air 02/25/20 08:00 97.6 104 20 127/80 (96) 95 02/25/20 04:00 97.8 104 20 133/84 (100) 95 02/25/20 00:00 97.8 95 21 117/71 (86) 95 02/24/20 21:01 105 130/78 02/24/20 21:00 Room Air 02/24/20 20:00 98.2 107 22 125/78 (94) 96 02/24/20 16:00 97.8 98 19 116/72 (87) 98 I&O Intake and Output 02/24/20 02/25/20 19:00 07:00 Intake Total 60 ml 1160 ml Output Total 1300 ml Balance 60 ml -140 ml Free Water 400 ml IV Total 100 ml Tube Feeding 60 ml 660 ml Output Urine Total 1300 ml # Bowel Movements 2 Dressing: saturated Wound: clean Cardiovascular: RSR Respiratory: decreased breath sounds Abdomen: soft, non-tender, present bowel sounds Extremities: no tenderness, no cyanosis Laboratory Tests Test 02/25/20 05:45 White Blood Count 15.3 K/UL (4.8-10.8) H Red Blood Count 3.72 M/UL (4.20-5.40) L Hemoglobin 10.2 G/DL (12.0-16.0) L Hematocrit 30.2 % (37.0-47.0) L Mean Corpuscular Volume 81 FL (80-99) Mean Corpuscular Hemoglobin 27.5 PG (27.0-31.0) Mean Corpuscular Hemoglobin Concent 33.9 G/DL (32.0-36.0) Red Cell Distribution Width 14.9 % (11.6-14.8) H Platelet Count 301 K/UL (150-450) Mean Platelet Volume 5.8 FL (6.5-10.1) L Neutrophils (%) (Auto) 83.7 % (45.0-75.0) H Lymphocytes (%) (Auto) 9.1 % (20.0-45.0) L Monocytes (%) (Auto) 4.5 % (1.0-10.0) Eosinophils (%) (Auto) 1.4 % (0.0-3.0) Basophils (%) (Auto) 1.3 % (0.0-2.0) Sodium Level 141 MMOL/L (136-145) Potassium Level 4.7 MMOL/L (3.5-5.1) Chloride Level 104 MMOL/L (98-107) Carbon Dioxide Level 25 MMOL/L (21-32) Anion Gap 12 mmol/L (5-15) Blood Urea Nitrogen 24 mg/dL (7-18) H Creatinine 0.9 MG/DL (0.55-1.30) Estimat Glomerular Filtration Rate > 60 mL/min (>60) Glucose Level 105 MG/DL (74-106) Calcium Level 8.2 MG/DL (8.5-10.1) L Total Bilirubin 0.2 MG/DL (0.2-1.0) Aspartate Amino Transf (AST/SGOT) 34 U/L (15-37) Alanine Aminotransferase (ALT/SGPT) 33 U/L (12-78) Alkaline Phosphatase 126 U/L (46-116) H Total Protein 6.9 G/DL (6.4-8.2) Albumin 1.7 G/DL (3.4-5.0) L Globulin 5.2 g/dL Albumin/Globulin Ratio 0.3 (1.0-2.7) L Plan Problems: (1) Septic shock Assessment & Plan: Patient presented to emergency department with sepsis hypotension tachycardia lactic acidosis leukocytosis. On IV antibiotics Labs improving IV hydration Continue tube feeds advance goal as tolerated Abdominal exam does elicit patient to retract a bit but she is not tender peritonitis or without rebound or significant guarding. exam improved Likely startle effect rather than intra-abdominal pathology will follow with serial exams continue with current care plan thank you for let me participate in patient's care leukocytosis. c diff negative. blood cultures noted abx as per ID Severe left hydronephrosis versus parapelvic cysts. No definite obstructing stone. Mild bladder wall thickening with small gas foci in the bladder, concerning for cystitis. Please correlate with urinalysis. Acute NSTEMI with peak troponin 31 as per cardiology wbc fever micro worsening leukocytosis improving labs improved downgraded exam stable labs ordered persistent leukocytosis cxr with b/l infiltrates abx as per ID -Small bilateral pleural effusions with passive atelectasis and lung base motion artifact. -Pacer device leads in the heart. -Tovar catheter in the decompressed urinary bladder. - No urolithiasis seen. -Consider left renal collecting system infection/UTI/pyelonephritis in the proper context given moderate left perinephric stranding which is asymmetric compared with the right. -Similar to prior study left inferior renal moiety moderate hydronephrosis without visualized cause. 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 -If there is further desire to evaluate collecting system dilation, consider repeating the study with CT hematuria protocol. -Sacral decubitus ulcer, correlate with presentation. - Rapid transit of contrast through the GI tract could be incidental or could be seen with an infectious or inflammatory enteritis. -Indeterminate left adrenal 2.1 cm enhancing nodule, if felt to alter clinical management consider additional evaluation adrenal gland. CONSIDER correlation with prior imaging studies. -Right renal cortical scarring due to old infectious or ischemic insults. -Atherosclerotic vascular disease. - Hysterectomy. -Unchanged osteopenia and degenerative spine findings. Unchanged old right possible lesser trochanter fracture versus extensive right hip capsular calcifications. 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 The lower pole collecting system is markedly hydronephrotic. The upper pole collecting system is normal in appearance. There is inflammatory change surrounding the lower pole of the left kidney, with some fluid tracking caudad along Gerota's fascia. There is either a cyst or dilated calyx in the left lower pole, suspect the latter as this appears to communicate with the collecting system along the anterior border of the kidney, best visualized on the sagittal reconstructed images. No obstructing stone or mass is demonstrated. There is no hydroureter. The upper pole collecting system is nondilated. There is probably only a single left ureter, but this cannot be stated for certain. The right kidney demonstrates subcentimeter low-attenuation lesions which are too small to characterize, most likely benign simple cysts. There is a Tovar catheter within the bladder, which contains some gas presumably related to the Tovar catheterization. There are retrococcygeal decubitus changes and suspicion for some ulceration. This is more evident than on the prior exam. No definite osseous destruction. The liver, gallbladder, bile ducts, pancreas, spleen, adrenals are unremarkable. No retroperitoneal or mesenteric mass or adenopathy. No pelvic mass or adenopathy. The uterus is absent. Ingested contrast has reached the distal colon, and there is some evidence of rectal fecal incontinence. No evidence of colonic diverticulosis or diverticulitis. The appendix is normal. No small bowel distention. No small bowel wall thickening. There is a small amount of free pelvic fluid. Distal esophagus is unremarkable. The stomach contains a gastrostomy which appears to be well positioned. Fairly extensive chronic degenerative changes are seen about both hips. There is some infiltration of the subcutaneous fat in the bilateral neck regions which is nonspecific. There are degenerative changes of the lumbar spine Included lung bases demonstrate small bilateral pleural effusions. Hazy parenchymal disease is seen in the bilateral lower lobes. 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 Inflammatory change is seen surrounding the lower pole left kidney. This is new since the prior exam, could inflammation secondary to acute obstruction versus infection, suspect the latter. Etiology of obstruction not demonstrated, could a congenital ureteropelvic junction obstruction Retrococcygeal decubitus changes and possibly ulceration. Correlate with clinical findings Bilateral pleural effusions. This is new since the previous study. 1.6 cm left adrenal mass, much more clearly demonstrated on the previous exam. Consider follow-up with adrenal protocol CT if this would affect management Gastrostomy, Tovar catheter, pacemaker incidentally noted Evidence of prior hysterectomy Incidental findings of degenerative disc disease, bilateral hip degenerative changes (2) Decubitus skin ulcer Assessment & Plan: 84-year-old female presented on admission with multiple decubitus skin ulcers and skin concerns. Patient identified to have a unstageable sacral lower back decubitus ulcer, periwound maceration, area of necrotic eschar soft, no drainage, no abscess, no foul odor Pt presented on admission with contractures, Multiple Pressure injuries.open DTPI sacrum.Wound is open at sacrococcygeal area(40%), with soft necrotic base ( L)5.5cm x (W)4.5cm. Surrounding base of wound is maroon and indurated. Total area of sacral DTPI measures(L) 12.5cm x (W)15cm. Non-blanching erythema periwound.In addition several small partial thickness wounds noted along Perineum.` Areas of hyperpigmentation noted to L and R trochanteric. Full thickness wound R knee.(L)1.1cm x (W)1.5cm.1 Base of wound 90% pink granulation,10% slough noted in center of wound. Borders are macerated.small amt serous exudate. No odor noted. No erythema or fluctuance noted periwound. Non-blanching erythema with fluctuance R heel. Unstageable pressure injury R hallux. Base of wound is 100% soft necrosis. Edges adherent and dry.No odor or exudate noted.Surrounding darker skin tone without erythema or fluctuance(L)2.6cm x (W)3cm. DTPI R Ankle(L)0.9cm x (W)1.6cm. Base of wound is fluctuant, maroon with marginal erythema. Periwound without erythema or fluctuance. Unstageable pressure injury distal/lateral R foot. Base of wound 100% soft necrosis with surrounding non-blanching erythema with fluctuance.(L)2cm x (W) 0.9cm. Stable dry eschar medial/lateral R foot (L)0.4cm x (W)0.8cm. Stable dry eschar lateral L heel.(L)1.9cm x (W)2.2cm. No erythema or fluctuance periwound. Unstable pressure injury medial/lateral L foot. Base of wound is 100% necrotic but dry.(L)0.7cm x (W)0.8cm. Unstageable pressure injury distal/lateral L foot. Base of wound is 100% necrotic but dry. (L)1.2cm x (W)1.6cm.non-blanching erythema without fluctuance periwound. Non-blanching erythema without fluctuance lateral L 5th metatarsal.(L)1.5cm x (W )0.5cm. Open DTPI L Hallux.Base of wound has mixed necrosis and slough with surrounding base of wound maroon with fluctuance. Non-blanching erythema without elevation in skin temp,or fluctuance periwound. Tx.plan: Cleanse Sacral wound with Saline. Apply TheraHoney. Apply Moisture Barrier Paste Periwound. Cover with Optifoam drsg. Change Daily and prn. Swab R nee with Betadine. Cover with Optifoam drsg every 3 days and prn. Swab wounds R foot with Betadine. Cover each wound with Optifoam drsg. Change every 3 days and prn. Swab wounds L foot with Betadine. Cover each wound with Optifoam drsg. Change every 3 days and prn. Reposition at least every 2hours or as tolerated. Place pillow between knees. Off-load heels with Pillow. APM/ARIEL Mattress. DAILY ESTIMATED NEEDS: Needs based on Wounds, underweight 50kg 30-35 kcals/kg 9316-4412 total kcals 1.25-2 g protein/kg 63-100 g total protein 25-30 mL/kg 1390-1544 total fluid mLs NUTRITION DIAGNOSIS: Increased kcal and pro needs r/t underweight status and wound healing as evidenced by pt @85% [place] Body Weight w/ multiple wounds, eval pending, pt is PEG dep. CURRENT TF:Glucerna 1.5 @60ml x20 hrs ENTERAL NUTRITION RECOMMENDATIONS: Maintain current TF as tolerated: Glucerna 1.5 @60ml/hr x20 hrs to provide 1200ml, 1800 kcal, 99g pro, 911ml free H2o -> Monitor for hypoglycemia and need to change to non carb control formula -> Flush per MD. HOB over 30 degrees ADDITIONAL RECOMMENDATIONS: 1) On iso, per SNF pt is: 65 inches + 110#/50kg 2) Wound care: add MATT in 4oz H2O BID via GT F/up w/ WC eval 3) Maintain calibrated bed scale wts 4) Monitor for continued hypoglycemic events, need for D5 or TF change uLther Mercedes Feb 25, 2020 12:15
--- NOTE | 2020-02-25 12:42 | Cardiac Electrophysiology PN ---
Assessment/Plan Assessment/Plan 1. S/P R. [facility] DDD pacer implantation with Nl Fx 2. Acute NSTEMI with peak troponin 31. Down to 2. Non verbal. Continue aspirin, Lopressor 50 bid and Lipitor. Echo on 02/11/20 EF 40-45% 3. Diabetes. 4. Hypertension, on Toprol 50 bid and Norvasc 10 daily 5. Status post septic shock with WBC 27 K. Improved on iv Abx per Dr. Naylor 6. Severe anemia. Hemoglobin improved from 7.5 to 9.4. 7. Dementia. 8. CVA. 10. COPD. 11. ARF and hydronephrosis, Cr now normal. S/P ureteral stent placement on 02/18/20 12. S/P PEG placement. LAKIA RN Subjective Subjective Nonverbal but responsive in NAD. No events. DC planning today Objective Last 24 Hour Vital Signs Date Time Temp Pulse Resp B/P (MAP) Pulse Ox O2 Delivery O2 Flow Rate FiO2 02/25/20 12:00 97.0 93 18 110/76 (87) 100 02/25/20 09:44 104 127/80 02/25/20 09:44 104 127/80 02/25/20 09:00 Room Air 02/25/20 08:00 97.6 104 20 127/80 (96) 95 02/25/20 04:00 97.8 104 20 133/84 (100) 95 02/25/20 00:00 97.8 95 21 117/71 (86) 95 02/24/20 21:01 105 130/78 02/24/20 21:00 Room Air 02/24/20 20:00 98.2 107 22 125/78 (94) 96 02/24/20 16:00 97.8 98 19 116/72 (87) 98 Intake and Output 02/24/20 02/25/20 19:00 07:00 Intake Total 60 ml 1160 ml Output Total 1300 ml Balance 60 ml -140 ml Free Water 400 ml IV Total 100 ml Tube Feeding 60 ml 660 ml Output Urine Total 1300 ml # Bowel Movements 2 Laboratory Tests Test 02/25/20 05:45 White Blood Count 15.3 K/UL (4.8-10.8) H Red Blood Count 3.72 M/UL (4.20-5.40) L Hemoglobin 10.2 G/DL (12.0-16.0) L Hematocrit 30.2 % (37.0-47.0) L Mean Corpuscular Volume 81 FL (80-99) Mean Corpuscular Hemoglobin 27.5 PG (27.0-31.0) Mean Corpuscular Hemoglobin Concent 33.9 G/DL (32.0-36.0) Red Cell Distribution Width 14.9 % (11.6-14.8) H Platelet Count 301 K/UL (150-450) Mean Platelet Volume 5.8 FL (6.5-10.1) L Neutrophils (%) (Auto) 83.7 % (45.0-75.0) H Lymphocytes (%) (Auto) 9.1 % (20.0-45.0) L Monocytes (%) (Auto) 4.5 % (1.0-10.0) Eosinophils (%) (Auto) 1.4 % (0.0-3.0) Basophils (%) (Auto) 1.3 % (0.0-2.0) Sodium Level 141 MMOL/L (136-145) Potassium Level 4.7 MMOL/L (3.5-5.1) Chloride Level 104 MMOL/L (98-107) Carbon Dioxide Level 25 MMOL/L (21-32) Anion Gap 12 mmol/L (5-15) Blood Urea Nitrogen 24 mg/dL (7-18) H Creatinine 0.9 MG/DL (0.55-1.30) Estimat Glomerular Filtration Rate > 60 mL/min (>60) Glucose Level 105 MG/DL (74-106) Calcium Level 8.2 MG/DL (8.5-10.1) L Total Bilirubin 0.2 MG/DL (0.2-1.0) Aspartate Amino Transf (AST/SGOT) 34 U/L (15-37) Alanine Aminotransferase (ALT/SGPT) 33 U/L (12-78) Alkaline Phosphatase 126 U/L (46-116) H Total Protein 6.9 G/DL (6.4-8.2) Albumin 1.7 G/DL (3.4-5.0) L Globulin 5.2 g/dL Albumin/Globulin Ratio 0.3 (1.0-2.7) L Microbiology Date/Time Source Procedure Growth Status 02/22/20 14:45 Blood Blood Culture - Preliminary NO GROWTH AFTER 48 HOURS Resulted 02/22/20 14:45 Blood Blood Culture - Preliminary NO GROWTH AFTER 48 HOURS Resulted 02/24/20 22:15 Sputum Gram Stain - Final Resulted 02/24/20 22:15 Sputum Sputum Culture Pending Resulted 02/22/20 16:03 Indwelling Cath Urine Culture - Final NO GROWTH AFTER 48 HOURS Complete Objective HEAD AND NECK: Shows no JVD. LUNGS: Coarse rhonchi. CARDIOVASCULAR: Regular S1 and S2. Pacemaker is in the right subclavian. ABDOMEN: Soft.PEG in place. Has john EXTREMITIES: Contracted. Oscar Corley MD Feb 25, 2020 12:42
--- NOTE | 2020-02-25 14:20 | Hematology/Onc Progress Note ---
Assessment/Plan Assessment/Plan Assessment and Recs: # Leukocytosis likely due to sepsi and citrobacter bacteremia, vre/enterococcus uti, fungemia risk --> imaging has since been reviewed --> peripheral smear is negative --> abx as per id: meropenem/linezolid --> flow cytometry if doesn't improve by next week --> c diff and covid 19 negative --> wbc trend: 21.9-->21.9-->14.8 ->12->17->15 # Anemia likely due to iron deficiency --> ferritin is ordered, other anemia panel reviewed --> hgb trend 8.6-->8.8-->9.3 -->9-->8.9-->8.4-->11->10 --> hgb goal greater than 7, transfuse as needed --> no evidence of hemolysis is noted --> prbc: 1 unit 02/16/2020 # hypernatremia due to free water deficit of close to 3L-improved --> per renal --> on ivfs # 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 Subjective HEENT: Denies: no symptoms, eye pain, blurred vision, tearing, double vision, ear pain, ear discharge, nose pain, nose congestion, throat pain, throat swelling, mouth pain, mouth swelling, other Cardiovascular: Denies: no symptoms, chest pain, edema, irregular heart rate, lightheadedness, palpitations, syncope, other Respiratory: Denies: no symptoms, cough, shortness of breath, SOB with excertion, SOB at rest, sputum, wheezing, other Gastrointestinal/Abdominal: Denies: no symptoms, abdomen distended, abdominal pain, black stools, tarry stools, blood in stool, constipated, diarrhea, difficulty swallowing, nausea, poor appetite, poor fluid intake, rectal bleeding , vomiting, other Genitourinary: Denies: no symptoms, burning, discharge, frequency, flank pain, hematuria, incontinence, pain, urgency, other Neurologic/Psychiatric: Denies: no symptoms, anxiety, depressed, emotional problems, headache, numbness, paresthesia, pre-existing deficit, seizure, tingling, tremors, weakness, other Endocrine: Denies: no symptoms, excessive sweating, flushing, intolerance to cold, intolerance to heat, increased hunger, increased thirst, increased urine, unexplained weight gain, unexplained weight loss, other Allergies: Coded Allergies: No Known Allergies (Unverified , 01/30/20) Subjective 02/16 s/p 1 unit rbc, hgb 9.3, on iv iron, covid 19 negative 02/17 no events, this am, right sided weakness, labs are noted, reviewed, dw gi 02/18 s/p cysto, stool ob negative, labs reviewed, on room air 02/19 remains same, labs noted, nonverbal, unable to do ros hgb 8.4 02/20 no events, no bleeding, no chills, no labs, no night sweats 02/21 no events, no bleeding, labs reviewed, no night sweats, no fc hgb 10 02/24 on abx, remains nonverbal, cxr imaging noted, labs noted Objective Objective Current Medications Medications (Trade) Dose Ordered Sig/Moreno Route PRN Reason Start Time Stop Time Status Last Admin Dose Admin Acetaminophen (Tylenol) 650 mg Q4H PRN GT MILD/TEMP 02/20/20 17:24 03/08/20 17:23 Amlodipine Besylate (Norvasc) 10 mg DAILY ORAL 02/21/20 09:00 03/17/20 08:59 02/25/20 09:44 Aspirin (ASA) 81 mg DAILY GT 02/21/20 09:00 03/27/20 08:59 02/25/20 09:43 Atorvastatin Calcium (Lipitor) 40 mg BEDTIME ORAL 02/20/20 21:00 04/29/20 20:59 02/24/20 21:01 Dextrose (Dextrose 50%) 25 ml Q30M PRN IV Hypoglycemia 02/20/20 17:30 04/29/20 18:59 Dextrose (Dextrose 50%) 50 ml Q30M PRN IV Hypoglycemia 02/20/20 17:30 04/29/20 18:59 Diphenhydramine HCl (Benadryl) 25 mg Q6H PRN ORAL Itching/Pruritis 02/20/20 17:27 03/10/20 17:26 Diphenoxylate HCl/ Atropine (Lomotil) 2.5 mg Q4H PRN GT Diarrhea 02/20/20 17:28 03/08/20 17:27 Fluconazole (Diflucan) 200 mg DAILY ORAL 02/21/20 09:00 02/28/20 08:59 02/25/20 09:43 Levothyroxine Sodium (Synthroid) 25 mcg DAILY@0630 ORAL 02/21/20 06:30 03/01/20 06:29 02/25/20 05:59 Linezolid (Zyvox) 600 mg EVERY 12 HOURS ORAL 02/24/20 21:00 02/29/20 20:59 02/25/20 09:43 Loperamide HCl (Imodium) 2 mg Q3H PRN NG Diarrhea 02/20/20 18:45 03/11/20 12:44 Metoprolol Tartrate (Lopressor) 50 mg Q12HR GT 02/20/20 21:00 05/13/20 08:59 02/25/20 09:44 Ondansetron HCl (Zofran) 4 mg Q6H PRN IVP Nausea & Vomiting 02/20/20 21:00 02/29/20 14:59 Piperacillin Sod/ Tazobactam Sod 3.375 gm/Dextrose 100 ml @ 25 mls/hr EVERY 8 HOURS IVPB 02/24/20 22:00 02/29/20 21:59 02/25/20 05:59 Last 24 Hour Vital Signs Date Time Temp Pulse Resp B/P (MAP) Pulse Ox O2 Delivery O2 Flow Rate FiO2 02/25/20 12:00 97.0 93 18 110/76 (87) 100 02/25/20 09:44 104 127/80 02/25/20 09:44 104 127/80 02/25/20 09:00 Room Air 02/25/20 08:00 97.6 104 20 127/80 (96) 95 02/25/20 04:00 97.8 104 20 133/84 (100) 95 02/25/20 00:00 97.8 95 21 117/71 (86) 95 02/24/20 21:01 105 130/78 02/24/20 21:00 Room Air 02/24/20 20:00 98.2 107 22 125/78 (94) 96 02/24/20 16:00 97.8 98 19 116/72 (87) 98 02/24/20 12:00 97.9 92 17 117/69 (85) 98 02/24/20 10:08 108 133/79 02/24/20 10:08 108 133/79 02/24/20 09:00 Room Air 02/24/20 08:00 98.1 108 20 133/79 (97) 98 02/24/20 04:00 98.1 103 24 133/78 (96) 96 02/24/20 00:00 97.9 92 24 122/71 (88) 94 02/23/20 21:59 108 130/71 02/23/20 21:00 Room Air 02/23/20 20:00 98.4 111 24 109/71 (84) 97 02/23/20 16:00 98.2 104 22 136/72 (93) 98 Intake and Output 02/24/20 02/25/20 19:00 07:00 Intake Total 60 ml 1160 ml Output Total 1300 ml Balance 60 ml -140 ml Free Water 400 ml IV Total 100 ml Tube Feeding 60 ml 660 ml Output Urine Total 1300 ml # Bowel Movements 2 Labs Test 02/22/20 15:35 02/22/20 16:03 02/24/20 08:10 02/25/20 05:45 White Blood Count 15.9 K/UL (4.8-10.8) 15.1 K/UL (4.8-10.8) 15.3 K/UL (4.8-10.8) Red Blood Count 4.10 M/UL (4.20-5.40) 3.56 M/UL (4.20-5.40) 3.72 M/UL (4.20-5.40) Hemoglobin 11.4 G/DL (12.0-16.0) 9.9 G/DL (12.0-16.0) 10.2 G/DL (12.0-16.0) Hematocrit 34.9 % (37.0-47.0) 29.3 % (37.0-47.0) 30.2 % (37.0-47.0) Mean Corpuscular Volume 85 FL (80-99) 82 FL (80-99) 81 FL (80-99) Mean Corpuscular Hemoglobin 27.7 PG (27.0-31.0) 27.8 PG (27.0-31.0) 27.5 PG (27.0-31.0) Mean Corpuscular Hemoglobin Concent 32.6 G/DL (32.0-36.0) 33.8 G/DL (32.0-36.0) 33.9 G/DL (32.0-36.0) Red Cell Distribution Width 16.3 % (11.6-14.8) 13.9 % (11.6-14.8) 14.9 % (11.6-14.8) Platelet Count 314 K/UL (150-450) 304 K/UL (150-450) 301 K/UL (150-450) Mean Platelet Volume 7.1 FL (6.5-10.1) 5.5 FL (6.5-10.1) 5.8 FL (6.5-10.1) Neutrophils (%) (Auto) 84.3 % (45.0-75.0) % (45.0-75.0) 83.7 % (45.0-75.0) Lymphocytes (%) (Auto) 9.6 % (20.0-45.0) % (20.0-45.0) 9.1 % (20.0-45.0) Monocytes (%) (Auto) 3.3 % (1.0-10.0) % (1.0-10.0) 4.5 % (1.0-10.0) Eosinophils (%) (Auto) 2.0 % (0.0-3.0) % (0.0-3.0) 1.4 % (0.0-3.0) Basophils (%) (Auto) 0.8 % (0.0-2.0) % (0.0-2.0) 1.3 % (0.0-2.0) Sodium Level 140 MMOL/L (136-145) 139 MMOL/L (136-145) 141 MMOL/L (136-145) Potassium Level 4.8 MMOL/L (3.5-5.1) 4.2 MMOL/L (3.5-5.1) 4.7 MMOL/L (3.5-5.1) Chloride Level 103 MMOL/L (98-107) 102 MMOL/L (98-107) 104 MMOL/L (98-107) Carbon Dioxide Level 27 MMOL/L (21-32) 29 MMOL/L (21-32) 25 MMOL/L (21-32) Anion Gap 10 mmol/L (5-15) 8 mmol/L (5-15) 12 mmol/L (5-15) Blood Urea Nitrogen 23 mg/dL (7-18) 24 mg/dL (7-18) 24 mg/dL (7-18) Creatinine 0.8 MG/DL (0.55-1.30) 0.8 MG/DL (0.55-1.30) 0.9 MG/DL (0.55-1.30) Estimat Glomerular Filtration Rate > 60 mL/min (>60) > 60 mL/min (>60) > 60 mL/min (>60) Glucose Level 120 MG/DL (74-106) 106 MG/DL (74-106) 105 MG/DL (74-106) Calcium Level 8.5 MG/DL (8.5-10.1) 8.6 MG/DL (8.5-10.1) 8.2 MG/DL (8.5-10.1) Total Bilirubin 0.2 MG/DL (0.2-1.0) 0.2 MG/DL (0.2-1.0) 0.2 MG/DL (0.2-1.0) Aspartate Amino Transf (AST/SGOT) 34 U/L (15-37) 30 U/L (15-37) 34 U/L (15-37) Alanine Aminotransferase (ALT/SGPT) 27 U/L (12-78) 25 U/L (12-78) 33 U/L (12-78) Alkaline Phosphatase 159 U/L (46-116) 129 U/L (46-116) 126 U/L (46-116) Total Protein 6.8 G/DL (6.4-8.2) 6.7 G/DL (6.4-8.2) 6.9 G/DL (6.4-8.2) Albumin 1.7 G/DL (3.4-5.0) 1.6 G/DL (3.4-5.0) 1.7 G/DL (3.4-5.0) Globulin 5.1 g/dL 5.1 g/dL 5.2 g/dL Albumin/Globulin Ratio 0.3 (1.0-2.7) 0.3 (1.0-2.7) 0.3 (1.0-2.7) Urine Color Pale yellow Urine Appearance Clear Urine pH 8 (4.5-8.0) Urine Specific [place] 1.010 (1.005-1.035) Urine Protein 3+ (NEGATIVE) Urine Glucose (UA) Negative (NEGATIVE) Urine Ketones Negative (NEGATIVE) Urine Blood 5+ (NEGATIVE) Urine Nitrite Negative (NEGATIVE) Urine Bilirubin Negative (NEGATIVE) Urine Urobilinogen Normal MG/DL (0.0-1.0) Urine Leukocyte Esterase 1+ (NEGATIVE) Urine RBC 10-15 /HPF (0 - 2) Urine WBC 0-2 /HPF (0 - 2) Urine Squamous Epithelial Cells None /LPF (NONE/OCC) Urine Bacteria None /HPF (NONE) Differential Total Cells Counted 100 Neutrophils % (Manual) 81 % (45-75) Lymphocytes % (Manual) 7 % (20-45) Monocytes % (Manual) 8 % (1-10) Eosinophils % (Manual) 4 % (0-3) Basophils % (Manual) 0 % (0-2) Band Neutrophils 0 % (0-8) Platelet Estimate Adequate Platelet Morphology Normal Hypochromasia 1+ Micro Microbiology Date/Time Source Procedure Growth Status 02/24/20 22:15 Sputum Gram Stain - Final Resulted 02/24/20 22:15 Sputum Sputum Culture Pending Resulted Height (Feet): 5 Height (Inches): 1.00 Weight (Pounds): 127 Objective Review of Systems: negative Physical Exam Vitals: reviewed General Appearance: other - Contracted elderly female nonverbal Head: normocephalic, atraumatic Neck: full range of motion, supple Resp: chest non-tender, lungs clear, speaking full sentences Cardiovascular: tachycardia Gi: non tender, soft, GT+ Gu: Tovar catheter in place Psychiatric: nonverbal Skin: no rash Fermin Baum MD Feb 25, 2020 14:20
--- NOTE | 2020-02-25 15:41 | General Progress Note ---
Assessment/Plan Status: stable Assessment/Plan: 84 year old woman with history of CVA, hemiplegia, DM, COPD, CKD, hyperlipidemia , hypothyroidism, GERD, unspecified CHF, S/p PPM brought in from SNF with hypotension, found to be septic with leukocytosis and minimal pyuria #Sepsis #Citrobacter bacteremia #Enterococcus/VRE UTI #Yeast UTI #Left Hydronephrosis #Leukocytosis - WBC remains 15K today #Hypotension - resolved #Elevated lactate - resolved #diarrhea - improved #Fever - resolved -continue inpatient level of care, cardiac monitoring -COVID 19 negative -01/29 BCx +citrobacter, repeat on 02/02 BCx negative -c diff negative on 02/03, 02/14 -Cont.imodium, lomotil per ID -pt w/fever on 02/10: BCx NGTD -02/10: UCx + enterococcus/VRE -02/13 BCx w/GPC in pairs -CT A/p and renal US reviewed -CT abd/pel w/contrast 02/14: left renal infection/UTI/Mathew with perinephric stranding, left hydronephrosis, duplicated left renal collecting system, atrophic right kidney -S/p cysto with left sided ureteral stent placement 02/17 02/19 BCx,UCx NGTD -02/22 CXR w/b/l infilatrates, L>R -d/w ID, cont. abx Zosyn, Zyvox, Diflucan given infiltrates seen on CXR #NSTEMI #HTN #HLD #Elevated BNP #S/p PPM, [facility] DDD #Sinus tachycardia -Echo 02/10: EF 40-45% -PPM interrogated: sinus tach -trop peak 31>> 8 >> 2.23 -monitor closely for evidence of fluid overload -cont. home amlodipine 10 mg -cont. medical management ASA, lipitor -lopressor 50 BID w/hold parameters -Cardio, Dr. Crain, following: no indication for cath at this time -EP, Dr. Corley, following #Hypernatremia - resolved #Hyponatremia - resolved #Unspecified CKD #One Kidney -monitor renal function -FWF per nephro -Nephro following, recs appreciated #anemia #Thrombocytosis -downtrending, likely 2/2 to infectious process -cont. to monitor -no signs of bleeding -s/p 1 U PRBC on 02/16/20 -Heme, Dr. Baum, following, recs appreciated #Hypothyroidism -TSH normal -cont levothyroxine #Decubitus Ulcer -Wound care following, appreciate recs #Dementia #h/o CVA -AOx1 at b/l -supportive care, monitor mentation -fall precautions, aspiration precautions -PT/OT/[employer]ER -Frequent orienting -Neurology following: recs appreciated I spent 35 minutes on this patient's case, and >50% was dedicated to counseling and/or care coordination which includes discussions with ID physician, RN and case finishing machine adjuster. Time of note does not reflect time of encounter. Subjective ROS Limited/Unobtainable: Yes - A phasic Allergies: Coded Allergies: No Known Allergies (Unverified , 01/30/20) Subjective Follow up for left hydronephrosis, leukocytosis, NSTEMI, gram negative bacteremia, ureteral stent placement on 02/17. WBC remains elevated Pt non-verbal, appears comfortable. Objective Last 24 Hour Vital Signs Date Time Temp Pulse Resp B/P (MAP) Pulse Ox O2 Delivery O2 Flow Rate FiO2 02/25/20 12:00 97.0 93 18 110/76 (87) 100 02/25/20 09:44 104 127/80 02/25/20 09:44 104 127/80 02/25/20 09:00 Room Air 02/25/20 08:00 97.6 104 20 127/80 (96) 95 02/25/20 04:00 97.8 104 20 133/84 (100) 95 02/25/20 00:00 97.8 95 21 117/71 (86) 95 02/24/20 21:01 105 130/78 02/24/20 21:00 Room Air 02/24/20 20:00 98.2 107 22 125/78 (94) 96 02/24/20 16:00 97.8 98 19 116/72 (87) 98 Intake and Output 02/24/20 02/25/20 19:00 07:00 Intake Total 60 ml 1160 ml Output Total 1300 ml Balance 60 ml -140 ml Free Water 400 ml IV Total 100 ml Tube Feeding 60 ml 660 ml Output Urine Total 1300 ml # Bowel Movements 2 Laboratory Tests 02/25/20 05:45: White Blood Count 15.3H, Red Blood Count 3.72L, Hemoglobin 10.2L, Hematocrit 30.2L, Mean Corpuscular Volume 81, Mean Corpuscular Hemoglobin 27.5, Mean Corpuscular Hemoglobin Concent 33.9, Red Cell Distribution Width 14.9H, Platelet Count 301, Mean Platelet Volume 5.8L, Neutrophils (%) (Auto) 83.7H, Lymphocytes (%) (Auto) 9.1L, Monocytes (%) (Auto) 4.5, Eosinophils (%) (Auto) 1.4, Basophils (%) (Auto) 1.3, Sodium Level 141, Potassium Level 4.7, Chloride Level 104, Carbon Dioxide Level 25, Anion Gap 12, Blood Urea Nitrogen 24H, Creatinine 0.9, Estimat Glomerular Filtration Rate > 60, Glucose Level 105, Calcium Level 8.2L, Total Bilirubin 0.2, Aspartate Amino Transf (AST/SGOT) 34, Alanine Aminotransferase (ALT/SGPT) 33, Alkaline Phosphatase 126H, Total Protein 6.9, Albumin 1.7L, Globulin 5.2, Albumin/Globulin Ratio 0.3L Height (Feet): 5 Height (Inches): 1.00 Weight (Pounds): 127 Objective General Appearance: NAD, non-verbal, awake, alert, cachetic, appears comfortable in bed HEENT: NCAT, MMM, EOMi CV: RRR Respiratory: lungs clear, normal breath sounds, no respiratory distress Abdomen: non tender, soft, +PEG tube, c/d/i Ext: Contracted bilaterally, multiple abrasions wrapped in bandages C/D/I Skin: PPM in right upper chest wall Lorna Uribe M.D. Feb 25, 2020 15:41
[2020-02-25 16:00] VITALS: BP 120/72
[2020-02-25] MEDS ORDERED: NS 500ML ONE (17:31)
[2020-02-25] MEDS ORDERED: Tubing IV Secondary IV ONE (17:31)
[2020-02-25 20:00] VITALS: BP 124/76
[2020-02-25] MEDS: Atorvastatin 20mg tab ORAL SCH (21:22)
--- NOTE | 2020-02-25 22:32 | Neurology Progress Note ---
Interim History Interim History ROS Limited/Unobtainable: Yes - A phasic Interim History no new deficits Objective Physical Exam Last Vital Signs Date Time Temp Pulse Resp B/P (MAP) Pulse Ox O2 Delivery O2 Flow Rate FiO2 02/25/20 21:22 109 144/87 02/25/20 16:00 96.4 20 98 02/25/20 09:00 Room Air 02/18/20 16:20 3 Laboratory Tests Test 02/25/20 05:45 White Blood Count 15.3 K/UL (4.8-10.8) H Red Blood Count 3.72 M/UL (4.20-5.40) L Hemoglobin 10.2 G/DL (12.0-16.0) L Hematocrit 30.2 % (37.0-47.0) L Mean Corpuscular Volume 81 FL (80-99) Mean Corpuscular Hemoglobin 27.5 PG (27.0-31.0) Mean Corpuscular Hemoglobin Concent 33.9 G/DL (32.0-36.0) Red Cell Distribution Width 14.9 % (11.6-14.8) H Platelet Count 301 K/UL (150-450) Mean Platelet Volume 5.8 FL (6.5-10.1) L Neutrophils (%) (Auto) 83.7 % (45.0-75.0) H Lymphocytes (%) (Auto) 9.1 % (20.0-45.0) L Monocytes (%) (Auto) 4.5 % (1.0-10.0) Eosinophils (%) (Auto) 1.4 % (0.0-3.0) Basophils (%) (Auto) 1.3 % (0.0-2.0) Sodium Level 141 MMOL/L (136-145) Potassium Level 4.7 MMOL/L (3.5-5.1) Chloride Level 104 MMOL/L (98-107) Carbon Dioxide Level 25 MMOL/L (21-32) Anion Gap 12 mmol/L (5-15) Blood Urea Nitrogen 24 mg/dL (7-18) H Creatinine 0.9 MG/DL (0.55-1.30) Estimat Glomerular Filtration Rate > 60 mL/min (>60) Glucose Level 105 MG/DL (74-106) Calcium Level 8.2 MG/DL (8.5-10.1) L Total Bilirubin 0.2 MG/DL (0.2-1.0) Aspartate Amino Transf (AST/SGOT) 34 U/L (15-37) Alanine Aminotransferase (ALT/SGPT) 33 U/L (12-78) Alkaline Phosphatase 126 U/L (46-116) H Total Protein 6.9 G/DL (6.4-8.2) Albumin 1.7 G/DL (3.4-5.0) L Globulin 5.2 g/dL Albumin/Globulin Ratio 0.3 (1.0-2.7) L Head: normocophalic, atraumatic Neck: no rigidity EENT: benign Neurologic Exam Sensory: other - cc 35 min Objective alert, tracks with eyes, Right sided weaker than left Impression/Recommendations Problems: (1) Septic shock (2) Anemia (3) Elevated troponin (4) Sepsis (5) Decubitus skin ulcer Status: stable Diagnostic Impression Acute encephalopathy in the context of sepsis Dementia, likely vascular Hx of strokes Monitor neuro exam Delirium precautions atb per primary asa daily PT OT Luis Nash MD Feb 25, 2020 22:32
[2020-02-26] VITALS: BP 117/65
[2020-02-26 04:00] VITALS: BP 116/70
[2020-02-26] MEDS: Levothyroxine 25mcg tab ORAL SCH (05:59)
[2020-02-26 07:21] LABS: HEMATOCRIT 30.3 % (37.0-47.0); HEMOGLOBIN 10.1 G/DL (12.0-16.0); MEAN CORPUSCULAR VOLUME 82 FL (80-99); PLATELET COUNT 255 K/UL (150-450); RED BLOOD COUNT 3.67 M/UL (4.20-5.40); RED CELL DISTRIBUTION WIDTH 14.5 % (11.6-14.8); WHITE BLOOD COUNT 14.9 K/UL (4.8-10.8)
[2020-02-26 07:22] LABS: ALANINE AMINOTRANSFERASE 27 U/L (12-78); ALBUMIN 1.8 G/DL (3.4-5.0); ALBUMIN/GLOBULIN RATIO 0.4 (1.0-2.7); ALKALINE PHOSPHATASE 123 U/L (46-116); AMYLASE 33 U/L (25-115); ANION GAP 9 mmol/L (5-15); ASPARTATE AMINO TRANSFERASE 28 U/L (15-37); BILIRUBIN,TOTAL 0.3 MG/DL (0.2-1.0); BLOOD UREA NITROGEN 25 mg/dL (7-18); CALCIUM 8.6 MG/DL (8.5-10.1); CARBON DIOXIDE 27 MMOL/L (21-32); CHLORIDE 102 MMOL/L (98-107); CREATININE 0.9 MG/DL (0.55-1.30); POTASSIUM 4.6 MMOL/L (3.5-5.1); SODIUM 138 MMOL/L (136-145)
[2020-02-26 07:25] LABS: INR 1.1 (0.9-1.1)
[2020-02-26 08:00] VITALS: BP 123/72
--- NOTE | 2020-02-26 08:27 | Urology Progress Note ---
Assessment/Plan Status: stable Assessment/Plan: 1. Left-sided hydronephrosis. 2. Urinary retention. 3. Neurogenic bladder. 4. Proteinuria. 5. Hematuria. 6. Pyuria. 7. Sepsis history. 8. Cystitis. 9. likely renal cyst. 10. POD # 8, left ureteral stent monitor clinically john remains indwelling hand irrigated and do PRN monitor renal fxn and WBC, fluctuating on abx, per ID voiding trial? hydro likely chronic, no stones, likely UPJ obst stent placed f/u on last blood cx voiding trial at some point? d/w primary service Subjective Allergies: Coded Allergies: No Known Allergies (Unverified , 01/30/20) Subjective all noted, doing fair Objective Last 24 Hour Vital Signs Date Time Temp Pulse Resp B/P (MAP) Pulse Ox O2 Delivery O2 Flow Rate FiO2 02/26/20 04:00 97.3 96 18 116/70 (85) 97 02/26/20 00:00 98.6 91 18 117/65 (82) 96 02/25/20 21:22 109 144/87 02/25/20 21:00 Nasal Cannula 2.0 02/25/20 20:00 98.9 100 18 124/76 (92) 96 02/25/20 16:00 96.4 102 20 120/72 (88) 98 02/25/20 12:00 97.0 93 18 110/76 (87) 100 02/25/20 09:44 104 127/80 02/25/20 09:44 104 127/80 02/25/20 09:00 Room Air Intake and Output 02/25/20 02/26/20 19:00 07:00 Intake Total 920 ml 900 ml Output Total 1400 ml 600 ml Balance -480 ml 300 ml Free Water 200 ml 200 ml IV Total 100 ml Tube Feeding 720 ml 600 ml Output Urine Total 1400 ml 600 ml # Bowel Movements 4 2 Microbiology Date/Time Source Procedure Growth Status 02/22/20 14:45 Blood Blood Culture - Preliminary NO GROWTH AFTER 72 HOURS Resulted 02/24/20 22:15 Sputum Gram Stain - Final Resulted 02/24/20 22:15 Sputum Culture - Preliminary Gram Negative Bacillus 1 Resulted 02/15/20 06:00 Stool Clostridium difficile Toxin Assay - Final Complete 02/22/20 16:03 Indwelling Cath Urine Culture - Final NO GROWTH AFTER 48 HOURS Complete 01/30/20 15:45 Rectum VRE Culture - Final NO VANCOMYCIN RESISTANT ENTEROCOCCUS ... Complete Current Medications Medications (Trade) Dose Ordered Sig/Moreno Route PRN Reason Start Time Stop Time Status Last Admin Dose Admin Acetaminophen (Tylenol) 650 mg Q4H PRN GT MILD/TEMP 02/20/20 17:24 03/08/20 17:23 Amlodipine Besylate (Norvasc) 10 mg DAILY ORAL 02/21/20 09:00 03/17/20 08:59 02/25/20 09:44 Aspirin (ASA) 81 mg DAILY GT 02/21/20 09:00 03/27/20 08:59 02/25/20 09:43 Atorvastatin Calcium (Lipitor) 40 mg BEDTIME ORAL 02/20/20 21:00 04/29/20 20:59 02/25/20 21:22 Dextrose (Dextrose 50%) 25 ml Q30M PRN IV Hypoglycemia 02/20/20 17:30 04/29/20 18:59 Dextrose (Dextrose 50%) 50 ml Q30M PRN IV Hypoglycemia 02/20/20 17:30 04/29/20 18:59 Diphenhydramine HCl (Benadryl) 25 mg Q6H PRN ORAL Itching/Pruritis 02/20/20 17:27 03/10/20 17:26 Diphenoxylate HCl/ Atropine (Lomotil) 2.5 mg Q4H PRN GT Diarrhea 02/20/20 17:28 03/08/20 17:27 Fluconazole (Diflucan) 200 mg DAILY ORAL 02/21/20 09:00 02/28/20 08:59 02/25/20 09:43 Levothyroxine Sodium (Synthroid) 25 mcg DAILY@0630 ORAL 02/21/20 06:30 03/01/20 06:29 02/26/20 05:59 Linezolid (Zyvox) 600 mg EVERY 12 HOURS ORAL 02/24/20 21:00 02/29/20 20:59 02/25/20 21:22 Loperamide HCl (Imodium) 2 mg Q3H PRN NG Diarrhea 02/20/20 18:45 03/11/20 12:44 Metoprolol Tartrate (Lopressor) 50 mg Q12HR GT 02/20/20 21:00 6/30/20 08:59 02/25/20 21:22 Ondansetron HCl (Zofran) 4 mg Q6H PRN IVP Nausea & Vomiting 02/20/20 21:00 02/29/20 14:59 Piperacillin Sod/ Tazobactam Sod 3.375 gm/Dextrose 100 ml @ 25 mls/hr EVERY 8 HOURS IVPB 02/24/20 22:00 02/29/20 21:59 02/26/20 05:55 Laboratory Tests 02/26/20 06:00: White Blood Count 14.9H, Red Blood Count 3.67L, Hemoglobin 10.1L, Hematocrit 30.3L, Mean Corpuscular Volume 82, Mean Corpuscular Hemoglobin 27.6, Mean Corpuscular Hemoglobin Concent 33.5, Red Cell Distribution Width 14.5, Platelet Count 255, Mean Platelet Volume 5.7L, Neutrophils (%) (Auto) , Lymphocytes (%) ( Auto) , Monocytes (%) (Auto) , Eosinophils (%) (Auto) , Basophils (%) (Auto) , Neutrophils % (Manual) [Pending], Lymphocytes % (Manual) [Pending], Platelet Estimate [Pending], Platelet Morphology [Pending], Erythrocyte Sedimentation Rate 101H, Prothrombin Time 11.3, Prothromb Time International Ratio 1.1, Activated Partial Thromboplast Time 30, Sodium Level 138, Potassium Level 4.6, Chloride Level 102, Carbon Dioxide Level 27, Anion Gap 9, Blood Urea Nitrogen 25H, Creatinine 0.9, Estimat Glomerular Filtration Rate > 60, Glucose Level 104 , Calcium Level 8.6, Total Bilirubin 0.3, Aspartate Amino Transf (AST/SGOT) 28, Alanine Aminotransferase (ALT/SGPT) 27, Alkaline Phosphatase 123H, C-Reactive Protein, Quantitative 3.9H, Total Protein 6.9, Albumin 1.8L, Globulin 5.1, Albumin/Globulin Ratio 0.4L, Amylase Level 33, Lipase 208 Height (Feet): 5 Height (Inches): 1.00 Weight (Pounds): 127 Objective exam stable john indwelling, yellow/evangelina urine with occasional debris renal u/s (02/11) noted CT A/P with IV contrast (02/14) noted Timothy Leos MD Feb 26, 2020 08:27
[2020-02-26] MEDS: Aspirin Baby 81mg GT SCH (09:27)
[2020-02-26] MEDS: Metoprolol Tartrate 50mg tab GT SCH (09:28)
[2020-02-26] MEDS: Fluconazole 100mg tab ORAL SCH (09:34)
--- NOTE | 2020-02-26 09:35 | Hematology/Onc Progress Note ---
Assessment/Plan Assessment/Plan Assessment and Recs: # Leukocytosis likely due to sepsi and citrobacter bacteremia, vre/enterococcus uti, fungemia risk --> imaging has since been reviewed --> peripheral smear is negative --> abx as per id: meropenem/linezolid --> flow cytometry if doesn't improve by next week --> c diff and covid 19 negative --> wbc trend: 21.9-->21.9-->14.8 ->12->17->15->15 # Anemia likely due to iron deficiency --> ferritin is ordered, other anemia panel reviewed --> hgb trend 8.6-->8.8-->9.3 -->9-->8.9-->8.4-->11->10 --> hgb goal greater than 7, transfuse as needed --> no evidence of hemolysis is noted --> prbc: 1 unit 02/16/2020 # hypernatremia due to free water deficit of close to 3L-improved --> per renal --> on ivfs # 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 Subjective HEENT: Denies: no symptoms, eye pain, blurred vision, tearing, double vision, ear pain, ear discharge, nose pain, nose congestion, throat pain, throat swelling, mouth pain, mouth swelling, other Cardiovascular: Denies: no symptoms, chest pain, edema, irregular heart rate, lightheadedness, palpitations, syncope, other Respiratory: Denies: no symptoms, cough, shortness of breath, SOB with excertion, SOB at rest, sputum, wheezing, other Gastrointestinal/Abdominal: Denies: no symptoms, abdomen distended, abdominal pain, black stools, tarry stools, blood in stool, constipated, diarrhea, difficulty swallowing, nausea, poor appetite, poor fluid intake, rectal bleeding , vomiting, other Genitourinary: Denies: no symptoms, burning, discharge, frequency, flank pain, hematuria, incontinence, pain, urgency, other Neurologic/Psychiatric: Denies: no symptoms, anxiety, depressed, emotional problems, headache, numbness, paresthesia, pre-existing deficit, seizure, tingling, tremors, weakness, other Endocrine: Denies: no symptoms, excessive sweating, flushing, intolerance to cold, intolerance to heat, increased hunger, increased thirst, increased urine, unexplained weight gain, unexplained weight loss, other Allergies: Coded Allergies: No Known Allergies (Unverified , 01/30/20) Subjective 02/16 s/p 1 unit rbc, hgb 9.3, on iv iron, covid 19 negative 02/17 no events, this am, right sided weakness, labs are noted, reviewed, dw gi 02/18 s/p cysto, stool ob negative, labs reviewed, on room air 02/19 remains same, labs noted, nonverbal, unable to do ros hgb 8.4 02/20 no events, no bleeding, no chills, no labs, no night sweats 02/21 no events, no bleeding, labs reviewed, no night sweats, no fc hgb 10 02/24 on abx, remains nonverbal, cxr imaging noted, labs noted 02/25 labs have been reviewed, no major events, no bleeding, h/h noted hgb 10.1 Objective Objective Current Medications Medications (Trade) Dose Ordered Sig/Moreno Route PRN Reason Start Time Stop Time Status Last Admin Dose Admin Acetaminophen (Tylenol) 650 mg Q4H PRN GT MILD/TEMP 02/20/20 17:24 03/08/20 17:23 Amlodipine Besylate (Norvasc) 10 mg DAILY ORAL 02/21/20 09:00 03/17/20 08:59 02/25/20 09:44 Aspirin (ASA) 81 mg DAILY GT 02/21/20 09:00 03/27/20 08:59 02/25/20 09:43 Atorvastatin Calcium (Lipitor) 40 mg BEDTIME ORAL 02/20/20 21:00 04/29/20 20:59 02/25/20 21:22 Dextrose (Dextrose 50%) 25 ml Q30M PRN IV Hypoglycemia 02/20/20 17:30 04/29/20 18:59 Dextrose (Dextrose 50%) 50 ml Q30M PRN IV Hypoglycemia 02/20/20 17:30 04/29/20 18:59 Diphenhydramine HCl (Benadryl) 25 mg Q6H PRN ORAL Itching/Pruritis 02/20/20 17:27 03/10/20 17:26 Diphenoxylate HCl/ Atropine (Lomotil) 2.5 mg Q4H PRN GT Diarrhea 02/20/20 17:28 03/08/20 17:27 Fluconazole (Diflucan) 200 mg DAILY ORAL 02/21/20 09:00 02/28/20 08:59 02/25/20 09:43 Levothyroxine Sodium (Synthroid) 25 mcg DAILY@0630 ORAL 02/21/20 06:30 03/01/20 06:29 02/26/20 05:59 Linezolid (Zyvox) 600 mg EVERY 12 HOURS ORAL 02/24/20 21:00 02/29/20 20:59 02/25/20 21:22 Loperamide HCl (Imodium) 2 mg Q3H PRN NG Diarrhea 02/20/20 18:45 03/11/20 12:44 Metoprolol Tartrate (Lopressor) 50 mg Q12HR GT 02/20/20 21:00 05/13/20 08:59 02/25/20 21:22 Ondansetron HCl (Zofran) 4 mg Q6H PRN IVP Nausea & Vomiting 02/20/20 21:00 02/29/20 14:59 Piperacillin Sod/ Tazobactam Sod 3.375 gm/Dextrose 100 ml @ 25 mls/hr EVERY 8 HOURS IVPB 02/24/20 22:00 02/29/20 21:59 02/26/20 05:55 Last 24 Hour Vital Signs Date Time Temp Pulse Resp B/P (MAP) Pulse Ox O2 Delivery O2 Flow Rate FiO2 02/26/20 04:00 97.3 96 18 116/70 (85) 97 02/26/20 00:00 98.6 91 18 117/65 (82) 96 02/25/20 21:22 109 144/87 02/25/20 21:00 Nasal Cannula 2.0 02/25/20 20:00 98.9 100 18 124/76 (92) 96 02/25/20 16:00 96.4 102 20 120/72 (88) 98 02/25/20 12:00 97.0 93 18 110/76 (87) 100 02/25/20 09:44 104 127/80 02/25/20 09:44 104 127/80 02/25/20 09:00 Room Air 02/25/20 08:00 97.6 104 20 127/80 (96) 95 02/25/20 04:00 97.8 104 20 133/84 (100) 95 02/25/20 00:00 97.8 95 21 117/71 (86) 95 02/24/20 21:01 105 130/78 02/24/20 21:00 Nasal Cannula 2.0 02/24/20 20:00 98.2 107 22 125/78 (94) 96 02/24/20 16:00 97.8 98 19 116/72 (87) 98 02/24/20 12:00 97.9 92 17 117/69 (85) 98 02/24/20 10:08 108 133/79 02/24/20 10:08 108 133/79 Intake and Output 02/25/20 02/26/20 19:00 07:00 Intake Total 920 ml 900 ml Output Total 1400 ml 600 ml Balance -480 ml 300 ml Free Water 200 ml 200 ml IV Total 100 ml Tube Feeding 720 ml 600 ml Output Urine Total 1400 ml 600 ml # Bowel Movements 4 2 Labs Test 02/24/20 08:10 02/25/20 05:45 02/26/20 06:00 White Blood Count 15.1 K/UL (4.8-10.8) 15.3 K/UL (4.8-10.8) 14.9 K/UL (4.8-10.8) Red Blood Count 3.56 M/UL (4.20-5.40) 3.72 M/UL (4.20-5.40) 3.67 M/UL (4.20-5.40) Hemoglobin 9.9 G/DL (12.0-16.0) 10.2 G/DL (12.0-16.0) 10.1 G/DL (12.0-16.0) Hematocrit 29.3 % (37.0-47.0) 30.2 % (37.0-47.0) 30.3 % (37.0-47.0) Mean Corpuscular Volume 82 FL (80-99) 81 FL (80-99) 82 FL (80-99) Mean Corpuscular Hemoglobin 27.8 PG (27.0-31.0) 27.5 PG (27.0-31.0) 27.6 PG (27.0-31.0) Mean Corpuscular Hemoglobin Concent 33.8 G/DL (32.0-36.0) 33.9 G/DL (32.0-36.0) 33.5 G/DL (32.0-36.0) Red Cell Distribution Width 13.9 % (11.6-14.8) 14.9 % (11.6-14.8) 14.5 % (11.6-14.8) Platelet Count 304 K/UL (150-450) 301 K/UL (150-450) 255 K/UL (150-450) Mean Platelet Volume 5.5 FL (6.5-10.1) 5.8 FL (6.5-10.1) 5.7 FL (6.5-10.1) Neutrophils (%) (Auto) % (45.0-75.0) 83.7 % (45.0-75.0) % (45.0-75.0) Lymphocytes (%) (Auto) % (20.0-45.0) 9.1 % (20.0-45.0) % (20.0-45.0) Monocytes (%) (Auto) % (1.0-10.0) 4.5 % (1.0-10.0) % (1.0-10.0) Eosinophils (%) (Auto) % (0.0-3.0) 1.4 % (0.0-3.0) % (0.0-3.0) Basophils (%) (Auto) % (0.0-2.0) 1.3 % (0.0-2.0) % (0.0-2.0) Differential Total Cells Counted 100 Neutrophils % (Manual) 81 % (45-75) Lymphocytes % (Manual) 7 % (20-45) Monocytes % (Manual) 8 % (1-10) Eosinophils % (Manual) 4 % (0-3) Basophils % (Manual) 0 % (0-2) Band Neutrophils 0 % (0-8) Platelet Estimate Adequate Platelet Morphology Normal Hypochromasia 1+ Sodium Level 139 MMOL/L (136-145) 141 MMOL/L (136-145) 138 MMOL/L (136-145) Potassium Level 4.2 MMOL/L (3.5-5.1) 4.7 MMOL/L (3.5-5.1) 4.6 MMOL/L (3.5-5.1) Chloride Level 102 MMOL/L (98-107) 104 MMOL/L (98-107) 102 MMOL/L (98-107) Carbon Dioxide Level 29 MMOL/L (21-32) 25 MMOL/L (21-32) 27 MMOL/L (21-32) Anion Gap 8 mmol/L (5-15) 12 mmol/L (5-15) 9 mmol/L (5-15) Blood Urea Nitrogen 24 mg/dL (7-18) 24 mg/dL (7-18) 25 mg/dL (7-18) Creatinine 0.8 MG/DL (0.55-1.30) 0.9 MG/DL (0.55-1.30) 0.9 MG/DL (0.55-1.30) Estimat Glomerular Filtration Rate > 60 mL/min (>60) > 60 mL/min (>60) > 60 mL/min (>60) Glucose Level 106 MG/DL (74-106) 105 MG/DL (74-106) 104 MG/DL (74-106) Calcium Level 8.6 MG/DL (8.5-10.1) 8.2 MG/DL (8.5-10.1) 8.6 MG/DL (8.5-10.1) Total Bilirubin 0.2 MG/DL (0.2-1.0) 0.2 MG/DL (0.2-1.0) 0.3 MG/DL (0.2-1.0) Aspartate Amino Transf (AST/SGOT) 30 U/L (15-37) 34 U/L (15-37) 28 U/L (15-37) Alanine Aminotransferase (ALT/SGPT) 25 U/L (12-78) 33 U/L (12-78) 27 U/L (12-78) Alkaline Phosphatase 129 U/L (46-116) 126 U/L (46-116) 123 U/L (46-116) Total Protein 6.7 G/DL (6.4-8.2) 6.9 G/DL (6.4-8.2) 6.9 G/DL (6.4-8.2) Albumin 1.6 G/DL (3.4-5.0) 1.7 G/DL (3.4-5.0) 1.8 G/DL (3.4-5.0) Globulin 5.1 g/dL 5.2 g/dL 5.1 g/dL Albumin/Globulin Ratio 0.3 (1.0-2.7) 0.3 (1.0-2.7) 0.4 (1.0-2.7) Erythrocyte Sedimentation Rate 101 MM/HR (0-30) Prothrombin Time 11.3 SEC (9.30-11.50) Prothromb Time International Ratio 1.1 (0.9-1.1) Activated Partial Thromboplast Time 30 SEC (23-33) C-Reactive Protein, Quantitative 3.9 mg/dL (0.00-0.90) Amylase Level 33 U/L (25-115) Lipase 208 U/L (73-393) Height (Feet): 5 Height (Inches): 1.00 Weight (Pounds): 127 Objective Review of Systems: negative Physical Exam Vitals: reviewed General Appearance: other - Contracted elderly female nonverbal Head: normocephalic, atraumatic Neck: full range of motion, supple Resp: chest non-tender, lungs clear, speaking full sentences Cardiovascular: tachycardia Gi: non tender, soft, GT+ Gu: Tovar catheter in place Psychiatric: nonverbal Skin: no rash Fermin Baum MD Feb 26, 2020 09:35
--- NOTE | 2020-02-26 09:42 | Diagnostic Imaging Report ---
Indication: Abdominal pain Technique: Supine view of the abdomen Comparison: 02/01/2020 Findings: There is interim placement of a left nephroureteral stent, appearing to be in appropriate position. The bowel gas pattern is unremarkable. Again demonstrated is a triangular calcification in the right pelvis. Impression: No acute process
--- NOTE | 2020-02-26 09:45 | Diagnostic Imaging Report ---
Indication: Shortness of breath Technique: One view of the chest Comparison: 02/23/2020 Findings: Right chest pacemaker is again noted. There is increased pleural fluid on the right. Pleural fluid and basilar consolidation on the left is stable. There may be decreased infiltrate in the right lower lung. The heart size is normal. Impression: Increased right-sided pleural effusion but apparent decrease infrahilar infiltrate Stable left pleural effusion and basilar consolidation
[2020-02-26] MEDS ORDERED: MERREM1 GM IV (10:12)
[2020-02-26] MEDS ORDERED: ASPIRIN81 MG GT (10:12)
[2020-02-26] MEDS ORDERED: METOPROLOL TART50 MG GT (10:12)
--- NOTE | 2020-02-26 10:19 | Discharge Summary ---
Discharge Summary Hospital Course Date of Admission Jan 30, 2020 at 17:40 Date of Discharge Admitting Diagnosis hypotension, droplet HPI Nu Ness is a 84 year old female who was admitted on Jan 30, 2020 at 17: 40 for Hypotension. S: pt non-verbal, unable to obtain ROS. Appears comfortable. PE: General Appearance: NAD, non-verbal, awake, alert, cachetic, appears comfortable in bed HEENT: NCAT, MMM, EOMi CV: RRR Respiratory: lungs clear, normal breath sounds, no respiratory distress Abdomen: non tender, soft, +PEG tube, c/d/i Ext: Contracted bilaterally, multiple abrasions wrapped in bandages C/D/I Skin: PPM in right upper chest wall Hospital Course 84 year old woman with history of CVA, hemiplegia, DM, COPD, CKD, hyperlipidemia , hypothyroidism, GERD, unspecified CHF, S/p PPM brought in from SNF with hypotension, found to be septic with leukocytosis and minimal pyuria. Patient found to have Citrobacter bacteremia, enterococcus/VRE UTI, yeast UTI which she was treated for. COVID 19 was tested and NEGATIVE. Patient had multiple episodes of diarrhea, C. difficile negative and improved with Imodium. Patient throughout hospital stay had spiking fevers for which blood cultures/urine cultures were repeated, CT abdomen was performed which revealed left hydronephrosis. Urology, Dr. Green, was consulted and stent was placed on 02/17. Family was instructed that stent would need to be followed up on with possible removal, Dr. Leos informed son, Terry. Throughout hospital course, patient found to have NSTEMI, PPM was interrogated which revealed sinus tachycardia. Bankruptcy Paralegal, Dr. Corley, consulted, no intervention at this time , medical management with BB, ASA, statin. Echo on 02/10 revealed EF 40-45%. Patient with persistent leukocytosis, CXR on 02/22 revealed bilateral infiltrates. ID states pt stable for d/c to SNF w/Merrem x5 days. Pt to be d/c back to SNF in stable condition w/f/u w/ urologist and director immunology of choice. #Sepsis #Citrobacter bacteremia #Enterococcus/VRE UTI #Yeast UTI #Left Hydronephrosis #Leukocytosis - WBC remains 15K today #Hypotension - resolved #Elevated lactate - resolved #diarrhea - improved #Fever - resolved #NSTEMI #HTN #HLD #Elevated BNP #S/p PPM, [facility] DDD #Sinus tachycardia #Hypernatremia - resolved #Hyponatremia - resolved #Unspecified CKD #One Kidney #anemia #Thrombocytosis #Hypothyroidism #Decubitus Ulcer #Dementia #h/o CVA D/c planning >30 mins. Discharge Medications New Medications: Meropenem (Merrem) 1 Gm Vial 1 GM IV Q12HR for 5 Days, #10 VIAL 0 Refills Aspirin* (Aspirin*) 81 Mg Tab.chew 81 MG GT DAILY for 30 Days, #30 TAB 3 Refills Metoprolol Tartrate* (Metoprolol Tartrate*) 50 Mg Tablet 50 MG GT Q12HR for 30 Days, #60 TAB 3 Refills Continued Medications: Acetaminophen (Tylenol) 325 Mg Tablet 650 MG GT Q6H PRN for Prn Pain/Headache/Temp > 101, #30 TAB 0 Refills Amlodipine Besylate* (Amlodipine Besylate*) 10 Mg Tablet 10 MG ORAL DAILY for BP, TAB Atorvastatin Calcium* (Atorvastatin Calcium*) 40 Mg Tablet 40 MG GT BEDTIME for CHOLESTEROL, TAB Bisacodyl (Bisacodyl) 10 Mg Supp.rect 10 MG RC DAILY for CONSTIPATION, SUPP Docusate Sodium* (Docusate Sodium*) 100 Mg Capsule 100 MG ORAL DAILY for CONSTIPATION, CAP Enoxaparin* (Lovenox*) 100 Mg/Ml Inj 300 MG SUBQ DAILY for DVT, #30 EA 0 Refills Famotidine* (Pepcid 20mg tablet*) 20 Mg Tablet 20 MG ORAL DAILY for GERD, #30 TAB 0 Refills Ipratropium Burns 0.5MG/2.5ML (Ipratropium Burns 0.5MG/2.5ML) 0.2 Mg/1 Ml Solution 0.5 MG HHN Q6H PRN for Shortness of Breath, #28 EA Lactulose (Lactulose*) 20 Gm/30 Ml Solution 20 ML GT for CONSTIPATION, ML 0 Refills Levothyroxine Sodium* (Levothyroxine Sodium*) 75 Mcg Tablet 25 MCG GT DAILY for HYPOTHYROIDISM, TAB Take in the morning on an empty stomach, at least 30 minutes before food. Multivitamin With Minerals (Multivitamins With Minerals*) 1 Each Tablet 1 TAB GT DAILY for SUPPLEMENTAL, TAB Discontinued Medications: Clonidine Hcl* (Catapres*) 0.1 Mg Tablet 0.1 MG GT EVERY 6 HOURS for BP, TAB Discharge Condition Upon Discharge: stable Discharge Vital Signs Last Vital Signs Date Time Temp Pulse Resp B/P (MAP) Pulse Ox O2 Delivery O2 Flow Rate FiO2 02/26/20 09:28 105 118/70 02/26/20 04:00 97.3 18 97 02/25/20 21:00 Nasal Cannula 2.0 Discharge Disposition Patient was discharged to [facility] Lorna Uribe M.D. Feb 26, 2020 10:19
--- NOTE | 2020-02-26 10:19 | General Progress Note ---
Assessment/Plan Problem List: (1) Diarrhea ICD Codes: R19.7 - Diarrhea, unspecified SNOMED: 39530374 (2) GI (gastrointestinal bleed) ICD Codes: K92.2 - Gastrointestinal hemorrhage, unspecified SNOMED: 81640083 (3) Elevated troponin ICD Codes: R79.89 - Other specified abnormal findings of blood chemistry; R65.21 - Severe sepsis with septic shock SNOMED: 924001539, 139226338, 265748287 (4) Anemia ICD Codes: D64.9 - Anemia, unspecified SNOMED: 884280593 (5) Septic shock ICD Codes: A41.9 - Sepsis, unspecified organism; R65.21 - Severe sepsis with septic shock SNOMED: 17914467 (6) Decubitus skin ulcer ICD Codes: L89.90 - Pressure ulcer of unspecified site, unspecified stage SNOMED: 519307387 Status: stable Assessment/Plan: diarrhea is better with Lomotil and Imodium neg stool C.diff TF , Glucerna 1.2 COVID >>> neg given active AK and stable H&H will hold GI procedures for now repeat stool ob>>> neg x2 repeat CBC fu ID regarding ABX treatment of Pylo fu repeat CT>>> reviewed>>>fu ID recs fu urology recs for hematuria wound care abx per ID Subjective ROS Limited/Unobtainable: No Allergies: Coded Allergies: No Known Allergies (Unverified , 01/30/20) Objective Last 24 Hour Vital Signs Date Time Temp Pulse Resp B/P (MAP) Pulse Ox O2 Delivery O2 Flow Rate FiO2 02/26/20 09:28 105 118/70 02/26/20 04:00 97.3 96 18 116/70 (85) 97 02/26/20 00:00 98.6 91 18 117/65 (82) 96 02/25/20 21:22 109 144/87 02/25/20 21:00 Nasal Cannula 2.0 02/25/20 20:00 98.9 100 18 124/76 (92) 96 02/25/20 16:00 96.4 102 20 120/72 (88) 98 02/25/20 12:00 97.0 93 18 110/76 (87) 100 Intake and Output 02/25/20 02/26/20 19:00 07:00 Intake Total 920 ml 900 ml Output Total 1400 ml 600 ml Balance -480 ml 300 ml Free Water 200 ml 200 ml IV Total 100 ml Tube Feeding 720 ml 600 ml Output Urine Total 1400 ml 600 ml # Bowel Movements 4 2 Laboratory Tests 02/26/20 06:00: White Blood Count 14.9H, Red Blood Count 3.67L, Hemoglobin 10.1L, Hematocrit 30.3L, Mean Corpuscular Volume 82, Mean Corpuscular Hemoglobin 27.6, Mean Corpuscular Hemoglobin Concent 33.5, Red Cell Distribution Width 14.5, Platelet Count 255, Mean Platelet Volume 5.7L, Neutrophils (%) (Auto) , Lymphocytes (%) ( Auto) , Monocytes (%) (Auto) , Eosinophils (%) (Auto) , Basophils (%) (Auto) , Differential Total Cells Counted 100, Neutrophils % (Manual) 88H, Lymphocytes % (Manual) 7L, Monocytes % (Manual) 3, Eosinophils % (Manual) 2, Basophils % ( Manual) 0, Band Neutrophils 0, Platelet Estimate Adequate, Platelet Morphology Normal, Red Blood Cell Morphology Normal, Erythrocyte Sedimentation Rate 101H, Prothrombin Time 11.3, Prothromb Time International Ratio 1.1, Activated Partial Thromboplast Time 30, Sodium Level 138, Potassium Level 4.6, Chloride Level 102, Carbon Dioxide Level 27, Anion Gap 9, Blood Urea Nitrogen 25H, Creatinine 0.9, Estimat Glomerular Filtration Rate > 60, Glucose Level 104, Calcium Level 8.6, Total Bilirubin 0.3, Aspartate Amino Transf (AST/SGOT) 28, Alanine Aminotransferase (ALT/SGPT) 27, Alkaline Phosphatase 123H, C-Reactive Protein, Quantitative 3.9H, Total Protein 6.9, Albumin 1.8L, Globulin 5.1, Albumin/Globulin Ratio 0.4L, Amylase Level 33, Lipase 208 Height (Feet): 5 Height (Inches): 1.00 Weight (Pounds): 127 General Appearance: no apparent distress EENT: normal ENT inspection Neck: supple Cardiovascular: normal rate Respiratory/Chest: decreased breath sounds Abdomen: normal bowel sounds, non tender, soft Extremities: non-tender Herminio Rodriguez MD Feb 26, 2020 10:19
[2020-02-26] MEDS ORDERED: Lidocaine 1% Plain 30 ml INJ PRN (10:30)
[2020-02-26] MEDS ORDERED: Heparin1,000 units/500ml Premix(Conc:2 units/ml) IV PRN (10:30)
--- NOTE | 2020-02-26 10:53 | Nephrology Progress Note ---
Assessment/Plan Plan #hypernatremia due to free water deficit of close to 3L-improved #sepsis due to Citrobacter bacteremia and pyelonephritis #h/o CVA with hemiplegia #DM #COPD # hyperlipidemia #hypothyroidism # GERD # unspecified CHF, S/p PPM # possible hydronephrosis on CT -> monitor off IVF -> monitor for ANGELICA _> CT abd/pelvis w con done on 02/14- s/p left ureteral stent 02/18 - amlodipine 10mg daily - decreased free water flushes to 150 q6hr - monitor bmp daily - continue abx - avoid nephrotoxins - strict I&Os - daily weights - monitor lytes - urology eval -CT abd/pelvis w con done on 02/14- - monitor Cr closely Subjective ROS Limited/Unobtainable: Yes Subjective CT abd/pelvis w con done on 02/14- s/p left ureteral stent 02/18 WBC 15 renal function and electrolytes stable Renal US: Impression: Moderate to severe left hydronephrosis versus parapelvic cysts mimicking hydronephrosis, versus combination of both. This also described on recent CT scan Atrophic right kidney. Mild right renal collecting system fullness, significance/etiology uncertain Objective Objective Last 24 Hour Vital Signs Date Time Temp Pulse Resp B/P (MAP) Pulse Ox O2 Delivery O2 Flow Rate FiO2 02/26/20 09:28 105 118/70 02/26/20 04:00 97.3 96 18 116/70 (85) 97 02/26/20 00:00 98.6 91 18 117/65 (82) 96 02/25/20 21:22 109 144/87 02/25/20 21:00 Nasal Cannula 2.0 02/25/20 20:00 98.9 100 18 124/76 (92) 96 02/25/20 16:00 96.4 102 20 120/72 (88) 98 02/25/20 12:00 97.0 93 18 110/76 (87) 100 Intake and Output 02/25/20 02/26/20 19:00 07:00 Intake Total 920 ml 900 ml Output Total 1400 ml 600 ml Balance -480 ml 300 ml Free Water 200 ml 200 ml IV Total 100 ml Tube Feeding 720 ml 600 ml Output Urine Total 1400 ml 600 ml # Bowel Movements 4 2 Laboratory Tests 02/26/20 06:00: White Blood Count 14.9H, Red Blood Count 3.67L, Hemoglobin 10.1L, Hematocrit 30.3L, Mean Corpuscular Volume 82, Mean Corpuscular Hemoglobin 27.6, Mean Corpuscular Hemoglobin Concent 33.5, Red Cell Distribution Width 14.5, Platelet Count 255, Mean Platelet Volume 5.7L, Neutrophils (%) (Auto) , Lymphocytes (%) ( Auto) , Monocytes (%) (Auto) , Eosinophils (%) (Auto) , Basophils (%) (Auto) , Differential Total Cells Counted 100, Neutrophils % (Manual) 88H, Lymphocytes % (Manual) 7L, Monocytes % (Manual) 3, Eosinophils % (Manual) 2, Basophils % ( Manual) 0, Band Neutrophils 0, Platelet Estimate Adequate, Platelet Morphology Normal, Red Blood Cell Morphology Normal, Erythrocyte Sedimentation Rate 101H, Prothrombin Time 11.3, Prothromb Time International Ratio 1.1, Activated Partial Thromboplast Time 30, Sodium Level 138, Potassium Level 4.6, Chloride Level 102, Carbon Dioxide Level 27, Anion Gap 9, Blood Urea Nitrogen 25H, Creatinine 0.9, Estimat Glomerular Filtration Rate > 60, Glucose Level 104, Calcium Level 8.6, Total Bilirubin 0.3, Aspartate Amino Transf (AST/SGOT) 28, Alanine Aminotransferase (ALT/SGPT) 27, Alkaline Phosphatase 123H, C-Reactive Protein, Quantitative 3.9H, Total Protein 6.9, Albumin 1.8L, Globulin 5.1, Albumin/Globulin Ratio 0.4L, Amylase Level 33, Lipase 208 Height (Feet): 5 Height (Inches): 1.00 Weight (Pounds): 127 Objective General Appearance: NAD, otherwise awake, alert, confused Neck: normal alignment, supple CV: RRR Respiratory: lungs clear, normal breath sounds, no respiratory distress Abdomen: non tender, soft, +PEG tube, c/d/i Ext: Contracted bilaterally, multiple abrasions wrapped in bandages C/D/I Cathy Fuller M.D. Feb 26, 2020 10:53
[2020-02-26 12:00] VITALS: BP 107/67
--- NOTE | 2020-02-26 12:04 | Cardiac Electrophysiology PN ---
Assessment/Plan Assessment/Plan 1. S/P R. [facility] DDD pacer implantation with Nl Fx 2. Acute NSTEMI with peak troponin 31. Down to 2. Non verbal. Continue aspirin, Lopressor 50 bid and Lipitor. Echo on 02/11/20 EF 40-45% 3. Diabetes. 4. Hypertension, on Toprol 50 bid and Norvasc 10 daily 5. Status post septic shock with WBC 27 K. Improved on iv Abx per Dr. Naylor 6. Severe anemia. Hemoglobin improved from 7.5 to 9.4. 7. Dementia. 8. CVA. 10. COPD. 11. ARF and hydronephrosis, Cr now normal. S/P ureteral stent placement on 02/18/20 12. S/P PEG placement. LAKIA RN DC back to [facility] today Subjective Subjective Nonverbal in NAD. No events. DC today pending Objective Last 24 Hour Vital Signs Date Time Temp Pulse Resp B/P (MAP) Pulse Ox O2 Delivery O2 Flow Rate FiO2 02/26/20 09:28 105 118/70 02/26/20 09:00 92 107/67 02/26/20 08:00 97.3 98 20 123/72 (89) 98 02/26/20 04:00 97.3 96 18 116/70 (85) 97 02/26/20 00:00 98.6 91 18 117/65 (82) 96 02/25/20 21:22 109 144/87 02/25/20 21:00 Nasal Cannula 2.0 02/25/20 20:00 98.9 100 18 124/76 (92) 96 02/25/20 16:00 96.4 102 20 120/72 (88) 98 Intake and Output 02/25/20 02/26/20 19:00 07:00 Intake Total 920 ml 900 ml Output Total 1400 ml 600 ml Balance -480 ml 300 ml Free Water 200 ml 200 ml IV Total 100 ml Tube Feeding 720 ml 600 ml Output Urine Total 1400 ml 600 ml # Bowel Movements 4 2 Laboratory Tests Test 02/26/20 06:00 White Blood Count 14.9 K/UL (4.8-10.8) H Red Blood Count 3.67 M/UL (4.20-5.40) L Hemoglobin 10.1 G/DL (12.0-16.0) L Hematocrit 30.3 % (37.0-47.0) L Mean Corpuscular Volume 82 FL (80-99) Mean Corpuscular Hemoglobin 27.6 PG (27.0-31.0) Mean Corpuscular Hemoglobin Concent 33.5 G/DL (32.0-36.0) Red Cell Distribution Width 14.5 % (11.6-14.8) Platelet Count 255 K/UL (150-450) Mean Platelet Volume 5.7 FL (6.5-10.1) L Neutrophils (%) (Auto) % (45.0-75.0) Lymphocytes (%) (Auto) % (20.0-45.0) Monocytes (%) (Auto) % (1.0-10.0) Eosinophils (%) (Auto) % (0.0-3.0) Basophils (%) (Auto) % (0.0-2.0) Differential Total Cells Counted 100 Neutrophils % (Manual) 88 % (45-75) H Lymphocytes % (Manual) 7 % (20-45) L Monocytes % (Manual) 3 % (1-10) Eosinophils % (Manual) 2 % (0-3) Basophils % (Manual) 0 % (0-2) Band Neutrophils 0 % (0-8) Platelet Estimate Adequate Platelet Morphology Normal Red Blood Cell Morphology Normal Erythrocyte Sedimentation Rate 101 MM/HR (0-30) H Prothrombin Time 11.3 SEC (9.30-11.50) Prothromb Time International Ratio 1.1 (0.9-1.1) Activated Partial Thromboplast Time 30 SEC (23-33) Sodium Level 138 MMOL/L (136-145) Potassium Level 4.6 MMOL/L (3.5-5.1) Chloride Level 102 MMOL/L (98-107) Carbon Dioxide Level 27 MMOL/L (21-32) Anion Gap 9 mmol/L (5-15) Blood Urea Nitrogen 25 mg/dL (7-18) H Creatinine 0.9 MG/DL (0.55-1.30) Estimat Glomerular Filtration Rate > 60 mL/min (>60) Glucose Level 104 MG/DL (74-106) Calcium Level 8.6 MG/DL (8.5-10.1) Total Bilirubin 0.3 MG/DL (0.2-1.0) Aspartate Amino Transf (AST/SGOT) 28 U/L (15-37) Alanine Aminotransferase (ALT/SGPT) 27 U/L (12-78) Alkaline Phosphatase 123 U/L (46-116) H C-Reactive Protein, Quantitative 3.9 mg/dL (0.00-0.90) H Total Protein 6.9 G/DL (6.4-8.2) Albumin 1.8 G/DL (3.4-5.0) L Globulin 5.1 g/dL Albumin/Globulin Ratio 0.4 (1.0-2.7) L Amylase Level 33 U/L (25-115) Lipase 208 U/L (73-393) Microbiology Date/Time Source Procedure Growth Status 02/24/20 22:15 Sputum Gram Stain - Final Resulted 02/24/20 22:15 Sputum Culture - Preliminary Gram Negative Bacillus 1 Resulted Objective HEAD AND NECK: Shows no JVD. LUNGS: Coarse rhonchi. CARDIOVASCULAR: Regular S1 and S2. Pacemaker is in the right subclavian. ABDOMEN: Soft.PEG in place. Has john EXTREMITIES: Contracted. Oscar Corley MD Feb 26, 2020 12:04
--- NOTE | 2020-02-26 14:05 | Surgery Progress Note ---
Surgery Progress Note Subjective Additional Comments leukocytosis improved exam stable nio acute events Objective Last 24 Hour Vital Signs Date Time Temp Pulse Resp B/P (MAP) Pulse Ox O2 Delivery O2 Flow Rate FiO2 02/26/20 12:00 97.6 92 20 107/67 (80) 98 02/26/20 09:28 105 118/70 02/26/20 09:00 92 107/67 02/26/20 09:00 Nasal Cannula 2.0 02/26/20 08:00 97.3 98 20 123/72 (89) 98 02/26/20 04:00 97.3 96 18 116/70 (85) 97 02/26/20 00:00 98.6 91 18 117/65 (82) 96 02/25/20 21:22 109 144/87 02/25/20 21:00 Nasal Cannula 2.0 02/25/20 20:00 98.9 100 18 124/76 (92) 96 02/25/20 16:00 96.4 102 20 120/72 (88) 98 I&O Intake and Output 02/25/20 02/26/20 19:00 07:00 Intake Total 920 ml 900 ml Output Total 1400 ml 600 ml Balance -480 ml 300 ml Free Water 200 ml 200 ml IV Total 100 ml Tube Feeding 720 ml 600 ml Output Urine Total 1400 ml 600 ml # Bowel Movements 4 2 Dressing: saturated Wound: other Drains: other Cardiovascular: RSR Respiratory: decreased breath sounds Abdomen: soft, non-tender, present bowel sounds Extremities: no tenderness, no cyanosis Laboratory Tests Test 02/26/20 06:00 White Blood Count 14.9 K/UL (4.8-10.8) H Red Blood Count 3.67 M/UL (4.20-5.40) L Hemoglobin 10.1 G/DL (12.0-16.0) L Hematocrit 30.3 % (37.0-47.0) L Mean Corpuscular Volume 82 FL (80-99) Mean Corpuscular Hemoglobin 27.6 PG (27.0-31.0) Mean Corpuscular Hemoglobin Concent 33.5 G/DL (32.0-36.0) Red Cell Distribution Width 14.5 % (11.6-14.8) Platelet Count 255 K/UL (150-450) Mean Platelet Volume 5.7 FL (6.5-10.1) L Neutrophils (%) (Auto) % (45.0-75.0) Lymphocytes (%) (Auto) % (20.0-45.0) Monocytes (%) (Auto) % (1.0-10.0) Eosinophils (%) (Auto) % (0.0-3.0) Basophils (%) (Auto) % (0.0-2.0) Differential Total Cells Counted 100 Neutrophils % (Manual) 88 % (45-75) H Lymphocytes % (Manual) 7 % (20-45) L Monocytes % (Manual) 3 % (1-10) Eosinophils % (Manual) 2 % (0-3) Basophils % (Manual) 0 % (0-2) Band Neutrophils 0 % (0-8) Platelet Estimate Adequate Platelet Morphology Normal Red Blood Cell Morphology Normal Erythrocyte Sedimentation Rate 101 MM/HR (0-30) H Prothrombin Time 11.3 SEC (9.30-11.50) Prothromb Time International Ratio 1.1 (0.9-1.1) Activated Partial Thromboplast Time 30 SEC (23-33) Sodium Level 138 MMOL/L (136-145) Potassium Level 4.6 MMOL/L (3.5-5.1) Chloride Level 102 MMOL/L (98-107) Carbon Dioxide Level 27 MMOL/L (21-32) Anion Gap 9 mmol/L (5-15) Blood Urea Nitrogen 25 mg/dL (7-18) H Creatinine 0.9 MG/DL (0.55-1.30) Estimat Glomerular Filtration Rate > 60 mL/min (>60) Glucose Level 104 MG/DL (74-106) Calcium Level 8.6 MG/DL (8.5-10.1) Total Bilirubin 0.3 MG/DL (0.2-1.0) Aspartate Amino Transf (AST/SGOT) 28 U/L (15-37) Alanine Aminotransferase (ALT/SGPT) 27 U/L (12-78) Alkaline Phosphatase 123 U/L (46-116) H C-Reactive Protein, Quantitative 3.9 mg/dL (0.00-0.90) H Total Protein 6.9 G/DL (6.4-8.2) Albumin 1.8 G/DL (3.4-5.0) L Globulin 5.1 g/dL Albumin/Globulin Ratio 0.4 (1.0-2.7) L Amylase Level 33 U/L (25-115) Lipase 208 U/L (73-393) Plan Problems: (1) Septic shock Assessment & Plan: Patient presented to emergency department with sepsis hypotension tachycardia lactic acidosis leukocytosis. On IV antibiotics Labs improving IV hydration Continue tube feeds advance goal as tolerated Abdominal exam does elicit patient to retract a bit but she is not tender peritonitis or without rebound or significant guarding. exam improved Likely startle effect rather than intra-abdominal pathology will follow with serial exams continue with current care plan thank you for let me participate in patient's care leukocytosis. c diff negative. blood cultures noted abx as per ID Severe left hydronephrosis versus parapelvic cysts. No definite obstructing stone. Mild bladder wall thickening with small gas foci in the bladder, concerning for cystitis. Please correlate with urinalysis. Acute NSTEMI with peak troponin 31 as per cardiology wbc fever micro worsening leukocytosis improving labs improved downgraded exam stable labs ordered persistent leukocytosis cxr with b/l infiltrates abx as per ID -Small bilateral pleural effusions with passive atelectasis and lung base motion artifact. -Pacer device leads in the heart. -Tovar catheter in the decompressed urinary bladder. - No urolithiasis seen. -Consider left renal collecting system infection/UTI/pyelonephritis in the proper context given moderate left perinephric stranding which is asymmetric compared with the right. -Similar to prior study left inferior renal moiety moderate hydronephrosis without visualized cause. 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 -If there is further desire to evaluate collecting system dilation, consider repeating the study with CT hematuria protocol. -Sacral decubitus ulcer, correlate with presentation. - Rapid transit of contrast through the GI tract could be incidental or could be seen with an infectious or inflammatory enteritis. -Indeterminate left adrenal 2.1 cm enhancing nodule, if felt to alter clinical management consider additional evaluation adrenal gland. CONSIDER correlation with prior imaging studies. -Right renal cortical scarring due to old infectious or ischemic insults. -Atherosclerotic vascular disease. - Hysterectomy. -Unchanged osteopenia and degenerative spine findings. Unchanged old right possible lesser trochanter fracture versus extensive right hip capsular calcifications. 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 The lower pole collecting system is markedly hydronephrotic. The upper pole collecting system is normal in appearance. There is inflammatory change surrounding the lower pole of the left kidney, with some fluid tracking caudad along Gerota's fascia. There is either a cyst or dilated calyx in the left lower pole, suspect the latter as this appears to communicate with the collecting system along the anterior border of the kidney, best visualized on the sagittal reconstructed images. No obstructing stone or mass is demonstrated. There is no hydroureter. The upper pole collecting system is nondilated. There is probably only a single left ureter, but this cannot be stated for certain. The right kidney demonstrates subcentimeter low-attenuation lesions which are too small to characterize, most likely benign simple cysts. There is a Tovar catheter within the bladder, which contains some gas presumably related to the Tovar catheterization. There are retrococcygeal decubitus changes and suspicion for some ulceration. This is more evident than on the prior exam. No definite osseous destruction. The liver, gallbladder, bile ducts, pancreas, spleen, adrenals are unremarkable. No retroperitoneal or mesenteric mass or adenopathy. No pelvic mass or adenopathy. The uterus is absent. Ingested contrast has reached the distal colon, and there is some evidence of rectal fecal incontinence. No evidence of colonic diverticulosis or diverticulitis. The appendix is normal. No small bowel distention. No small bowel wall thickening. There is a small amount of free pelvic fluid. Distal esophagus is unremarkable. The stomach contains a gastrostomy which appears to be well positioned. Fairly extensive chronic degenerative changes are seen about both hips. There is some infiltration of the subcutaneous fat in the bilateral neck regions which is nonspecific. There are degenerative changes of the lumbar spine Included lung bases demonstrate small bilateral pleural effusions. Hazy parenchymal disease is seen in the bilateral lower lobes. 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 Inflammatory change is seen surrounding the lower pole left kidney. This is new since the prior exam, could inflammation secondary to acute obstruction versus infection, suspect the latter. Etiology of obstruction not demonstrated, could a congenital ureteropelvic junction obstruction Retrococcygeal decubitus changes and possibly ulceration. Correlate with clinical findings Bilateral pleural effusions. This is new since the previous study. 1.6 cm left adrenal mass, much more clearly demonstrated on the previous exam. Consider follow-up with adrenal protocol CT if this would affect management Gastrostomy, Tovar catheter, pacemaker incidentally noted Evidence of prior hysterectomy Incidental findings of degenerative disc disease, bilateral hip degenerative changes Findings: There is interim placement of a left nephroureteral stent, appearing to be in appropriate position. The bowel gas pattern is unremarkable. Again demonstrated is a triangular calcification in the right pelvis. Impression: No acute process KUB okay Findings: Right chest pacemaker is again noted. There is increased pleural fluid on the right. Pleural fluid and basilar consolidation on the left is stable. There may be decreased infiltrate in the right lower lung. The heart size is normal. Impression: Increased right-sided pleural effusion but apparent decrease infrahilar infiltrate Stable left pleural effusion and basilar consolidation (2) Decubitus skin ulcer Assessment & Plan: 84-year-old female presented on admission with multiple decubitus skin ulcers and skin concerns. Patient identified to have a unstageable sacral lower back decubitus ulcer, periwound maceration, area of necrotic eschar soft, no drainage, no abscess, no foul odor Pt presented on admission with contractures, Multiple Pressure injuries.open DTPI sacrum.Wound is open at sacrococcygeal area(40%), with soft necrotic base ( L)5.5cm x (W)4.5cm. Surrounding base of wound is maroon and indurated. Total area of sacral DTPI measures(L) 12.5cm x (W)15cm. Non-blanching erythema periwound.In addition several small partial thickness wounds noted along Perineum.` Areas of hyperpigmentation noted to L and R trochanteric. Full thickness wound R knee.(L)1.1cm x (W)1.5cm.1 Base of wound 90% pink granulation,10% slough noted in center of wound. Borders are macerated.small amt serous exudate. No odor noted. No erythema or fluctuance noted periwound. Non-blanching erythema with fluctuance R heel. Unstageable pressure injury R hallux. Base of wound is 100% soft necrosis. Edges adherent and dry.No odor or exudate noted.Surrounding darker skin tone without erythema or fluctuance(L)2.6cm x (W)3cm. DTPI R Ankle(L)0.9cm x (W)1.6cm. Base of wound is fluctuant, maroon with marginal erythema. Periwound without erythema or fluctuance. Unstageable pressure injury distal/lateral R foot. Base of wound 100% soft necrosis with surrounding non-blanching erythema with fluctuance.(L)2cm x (W) 0.9cm. Stable dry eschar medial/lateral R foot (L)0.4cm x (W)0.8cm. Stable dry eschar lateral L heel.(L)1.9cm x (W)2.2cm. No erythema or fluctuance periwound. Unstable pressure injury medial/lateral L foot. Base of wound is 100% necrotic but dry.(L)0.7cm x (W)0.8cm. Unstageable pressure injury distal/lateral L foot. Base of wound is 100% necrotic but dry. (L)1.2cm x (W)1.6cm.non-blanching erythema without fluctuance periwound. Non-blanching erythema without fluctuance lateral L 5th metatarsal.(L)1.5cm x (W )0.5cm. Open DTPI L Hallux.Base of wound has mixed necrosis and slough with surrounding base of wound maroon with fluctuance. Non-blanching erythema without elevation in skin temp,or fluctuance periwound. Tx.plan: Cleanse Sacral wound with Saline. Apply TheraHoney. Apply Moisture Barrier Paste Periwound. Cover with Optifoam drsg. Change Daily and prn. Swab R nee with Betadine. Cover with Optifoam drsg every 3 days and prn. Swab wounds R foot with Betadine. Cover each wound with Optifoam drsg. Change every 3 days and prn. Swab wounds L foot with Betadine. Cover each wound with Optifoam drsg. Change every 3 days and prn. Reposition at least every 2hours or as tolerated. Place pillow between knees. Off-load heels with Pillow. APM/ARIEL Mattress. DAILY ESTIMATED NEEDS: Needs based on Wounds, underweight 50kg 30-35 kcals/kg 0982-1685 total kcals 1.25-2 g protein/kg 63-100 g total protein 25-30 mL/kg 4219-9164 total fluid mLs NUTRITION DIAGNOSIS: Increased kcal and pro needs r/t underweight status and wound healing as evidenced by pt @85% [place] Body Weight w/ multiple wounds, eval pending, pt is PEG dep. CURRENT TF:Glucerna 1.5 @60ml x20 hrs ENTERAL NUTRITION RECOMMENDATIONS: Maintain current TF as tolerated: Glucerna 1.5 @60ml/hr x20 hrs to provide 1200ml, 1800 kcal, 99g pro, 911ml free H2o -> Monitor for hypoglycemia and need to change to non carb control formula -> Flush per MD. HOB over 30 degrees ADDITIONAL RECOMMENDATIONS: 1) On iso, per SNF pt is: 65 inches + 110#/50kg 2) Wound care: add MATT in 4oz H2O BID via GT F/up w/ WC eval 3) Maintain calibrated bed scale wts 4) Monitor for continued hypoglycemic events, need for D5 or TF change Luther Mercedes Feb 26, 2020 14:05
[2020-02-26 16:00] VITALS: BP 109/70
--- NOTE | 2020-02-26 17:24 | Infectious Diseases Prog Note ---
Assessment/Plan Assessment/Plan A) 1) citrobacter bacteremia, vre/enterococcus uti with enterococcus/vre bacteremia , source, sepsis, leukocytosis fungemia risk new pna on chest x-ray - sputum culture with gram negative organism, ID pending - f/u CT noted, c/w hydronephrosis and pyelonephritis - s/p stent placement - c.diff. - negative - leukocytosis slowly improving 2) covid testing - negative 3) dm, hyperlipidemia, ? htn, hypothyroidism, cva, anemia, hemiplegia, ckd, gerd , copd, chf, ppm 4) allergies - nkda, fh-nc, sh-negative, mar noted, notes and records noted 5) d/w RN P) 1) meropenem, finish zyvox and diflucan (s/p 7 days) 2) f/u on sputum culture ID of gram negative, blood and urine cultures are negative 3) s/p stent 4) leukocytosis better slowly 5) communicated with Dr. Uribe 6) stable from ID standpoint Subjective Constitutional: Reports: fatigue; Denies: fever HEENT: Denies: congestion Respiratory: Denies: shortness of breath Cardiovascular: Denies: chest pain Gastrointestinal/Abdominal: Denies: nausea, vomiting, diarrhea Genitourinary: Reports: other - + john Neurologic: Reports: weakness, other - alert Psychiatric: Reports: other - NA Skin: Denies: rash Hematologic: Denies: bleeding Musculoskeletal: Denies: pain Allergies: Coded Allergies: No Known Allergies (Unverified , 01/30/20) Objective Vital Signs Last 24 Hour Vital Signs Date Time Temp Pulse Resp B/P (MAP) Pulse Ox O2 Delivery O2 Flow Rate FiO2 02/26/20 16:00 97.8 103 21 109/70 (83) 98 02/26/20 12:00 97.6 92 20 107/67 (80) 98 02/26/20 09:28 105 118/70 02/26/20 09:00 92 107/67 02/26/20 09:00 Nasal Cannula 2.0 02/26/20 08:00 97.3 98 20 123/72 (89) 98 02/26/20 04:00 97.3 96 18 116/70 (85) 97 02/26/20 00:00 98.6 91 18 117/65 (82) 96 02/25/20 21:22 109 144/87 02/25/20 21:00 Nasal Cannula 2.0 02/25/20 20:00 98.9 100 18 124/76 (92) 96 Height (Feet): 5 Height (Inches): 1.00 Weight (Pounds): 127 General Appearance: no acute distress HEENT: normocephalic, atraumatic, anicteric Respiratory/Chest: crackles/rales, rhonchi - bilaterally Cardiovascular: normal rate, regular rhythm, no gallop/murmur, no JVD Abdomen: normal bowel sounds, soft, non tender, no organomegaly, non distended Genitourinary: other - + john - urine clear Extremities: no cyanosis Skin: no rash 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 The heart size is normal. There is a right chest biventricular pacemaker Impression: No acute process CT abdomen and pelvis: IMPRESSION: 1. Examination is limited by motion artifact. 2. Trace left pleural effusion. 3. Severe left hydronephrosis versus parapelvic cysts. No definite obstructing stone. 4. Mild bladder wall thickening with small gas foci in the bladder, concerning for cystitis. Please correlate with urinalysis. CT ABDOMEN + PELVIS With Contrast: Prior 02/09/2020 Impression -Small bilateral pleural effusions with passive atelectasis and lung base motion artifact. -Pacer device leads in the heart. -John catheter in the decompressed urinary bladder. - No urolithiasis seen. -Consider left renal collecting system infection/UTI/pyelonephritis in the proper context given moderate left perinephric stranding which is asymmetric compared with the right. -Similar to prior study left inferior renal moiety moderate hydronephrosis without visualized cause. 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 -If there is further desire to evaluate collecting system dilation, consider repeating the study with CT hematuria protocol. -Sacral decubitus ulcer, correlate with presentation. - Rapid transit of contrast through the GI tract could be incidental or could be seen with an infectious or inflammatory enteritis. -Indeterminate left adrenal 2.1 cm enhancing nodule, if felt to alter clinical management consider additional evaluation adrenal gland. CONSIDER correlation with prior imaging studies. -Right renal cortical scarring due to old infectious or ischemic insults. -Atherosclerotic vascular disease. - Hysterectomy. -Unchanged osteopenia and degenerative spine findings. Unchanged old right possible lesser trochanter fracture versus extensive right hip capsular calcifications. Procedure: XRAY Chest 1v - 02/15/20- Indication: Dyspnea Comparison: 02/11/2020 A single view chest radiograph was obtained. Findings: No definite infiltrate or pulmonary vascular congestion identified. The heart is enlarged. The aorta is mildly enlarged consistent with atherosclerotic vascular disease. The bones are osteopenic. There are thoracic vertebral enthesophytes at multiple levels. Pacemaker noted on the right. Impression: No acute disease Chest x-ray - 02/23/20 - Procedure: XRAY Chest 1v EXAM: XR Chest, 1 View CLINICAL HISTORY: INFECT TECHNIQUE: Frontal view of the chest. COMPARISON: 02/15/20 FINDINGS: Lungs: There is been development of bilateral lower lobe infiltrates, left greater than right consistent with nonspecific pneumonia. Pleural space: There is been development of small bilateral pleural effusions. No pneumothorax. Heart: The heart size is at the upper limits of normal. Mediastinum: Unremarkable. Bones/joints: Unremarkable. Tubes, lines and devices: There right subclavian cardiac leads in unchanged position. IMPRESSION: There is been development of bilateral lower lobe infiltrates, left greater than right consistent with nonspecific pneumonia. Chest x-ray - 02/26/20 - Procedure: XRAY Chest 1v Indication: Shortness of breath Technique: One view of the chest Comparison: 02/23/2020 Findings: Right chest pacemaker is again noted. There is increased pleural fluid on the right. Pleural fluid and basilar consolidation on the left is stable. There may be decreased infiltrate in the right lower lung. The heart size is normal. Impression: Increased right-sided pleural effusion but apparent decrease infrahilar infiltrate Stable left pleural effusion and basilar consolidation Microbiology Date/Time Source Procedure Growth Status 02/22/20 14:45 Blood Blood Culture - Preliminary NO GROWTH AFTER 72 HOURS Resulted 02/24/20 22:15 Sputum Gram Stain - Final Resulted 02/24/20 22:15 Sputum Culture - Preliminary Gram Negative Bacillus 1 Resulted 02/15/20 06:00 Stool Clostridium difficile Toxin Assay - Final Complete 02/22/20 16:03 Indwelling Cath Urine Culture - Final NO GROWTH AFTER 48 HOURS Complete 01/30/20 15:45 Rectum VRE Culture - Final NO VANCOMYCIN RESISTANT ENTEROCOCCUS ... Complete Microbiology Date/Time Source Procedure Growth Status 02/24/20 22:15 Sputum Gram Stain - Final Resulted 02/24/20 22:15 Sputum Culture - Preliminary Gram Negative Bacillus 1 Resulted Laboratory Tests Test 02/26/20 06:00 White Blood Count 14.9 K/UL (4.8-10.8) H Red Blood Count 3.67 M/UL (4.20-5.40) L Hemoglobin 10.1 G/DL (12.0-16.0) L Hematocrit 30.3 % (37.0-47.0) L Mean Corpuscular Volume 82 FL (80-99) Mean Corpuscular Hemoglobin 27.6 PG (27.0-31.0) Mean Corpuscular Hemoglobin Concent 33.5 G/DL (32.0-36.0) Red Cell Distribution Width 14.5 % (11.6-14.8) Platelet Count 255 K/UL (150-450) Mean Platelet Volume 5.7 FL (6.5-10.1) L Neutrophils (%) (Auto) % (45.0-75.0) Lymphocytes (%) (Auto) % (20.0-45.0) Monocytes (%) (Auto) % (1.0-10.0) Eosinophils (%) (Auto) % (0.0-3.0) Basophils (%) (Auto) % (0.0-2.0) Differential Total Cells Counted 100 Neutrophils % (Manual) 88 % (45-75) H Lymphocytes % (Manual) 7 % (20-45) L Monocytes % (Manual) 3 % (1-10) Eosinophils % (Manual) 2 % (0-3) Basophils % (Manual) 0 % (0-2) Band Neutrophils 0 % (0-8) Platelet Estimate Adequate Platelet Morphology Normal Red Blood Cell Morphology Normal Erythrocyte Sedimentation Rate 101 MM/HR (0-30) H Prothrombin Time 11.3 SEC (9.30-11.50) Prothromb Time International Ratio 1.1 (0.9-1.1) Activated Partial Thromboplast Time 30 SEC (23-33) Sodium Level 138 MMOL/L (136-145) Potassium Level 4.6 MMOL/L (3.5-5.1) Chloride Level 102 MMOL/L (98-107) Carbon Dioxide Level 27 MMOL/L (21-32) Anion Gap 9 mmol/L (5-15) Blood Urea Nitrogen 25 mg/dL (7-18) H Creatinine 0.9 MG/DL (0.55-1.30) Estimat Glomerular Filtration Rate > 60 mL/min (>60) Glucose Level 104 MG/DL (74-106) Calcium Level 8.6 MG/DL (8.5-10.1) Total Bilirubin 0.3 MG/DL (0.2-1.0) Aspartate Amino Transf (AST/SGOT) 28 U/L (15-37) Alanine Aminotransferase (ALT/SGPT) 27 U/L (12-78) Alkaline Phosphatase 123 U/L (46-116) H C-Reactive Protein, Quantitative 3.9 mg/dL (0.00-0.90) H Total Protein 6.9 G/DL (6.4-8.2) Albumin 1.8 G/DL (3.4-5.0) L Globulin 5.1 g/dL Albumin/Globulin Ratio 0.4 (1.0-2.7) L Amylase Level 33 U/L (25-115) Lipase 208 U/L (73-393) Current Medications Medications (Trade) Dose Ordered Sig/Moreno Route PRN Reason Start Time Stop Time Status Last Admin Dose Admin Acetaminophen (Tylenol) 650 mg Q4H PRN GT MILD/TEMP 02/20/20 17:24 03/08/20 17:23 Amlodipine Besylate (Norvasc) 10 mg DAILY ORAL 02/21/20 09:00 03/17/20 08:59 02/25/20 09:44 Aspirin (ASA) 81 mg DAILY GT 02/21/20 09:00 03/27/20 08:59 02/26/20 09:27 Atorvastatin Calcium (Lipitor) 40 mg BEDTIME ORAL 02/20/20 21:00 04/29/20 20:59 02/25/20 21:22 Chlorhexidine Gluconate (Inessa-Hex 2%) 1 applic DAILY@2000 TOPIC 02/26/20 20:00 05/26/20 19:59 Dextrose (Dextrose 50%) 25 ml Q30M PRN IV Hypoglycemia 02/20/20 17:30 04/29/20 18:59 Dextrose (Dextrose 50%) 50 ml Q30M PRN IV Hypoglycemia 02/20/20 17:30 04/29/20 18:59 Diphenhydramine HCl (Benadryl) 25 mg Q6H PRN ORAL Itching/Pruritis 02/20/20 17:27 03/10/20 17:26 Diphenoxylate HCl/ Atropine (Lomotil) 2.5 mg Q4H PRN GT Diarrhea 02/20/20 17:28 03/08/20 17:27 Fluconazole (Diflucan) 200 mg DAILY ORAL 02/21/20 09:00 02/28/20 08:59 02/26/20 09:34 Heparin Sodium/ Sodium Chloride (Heparin 1000 units/500ml Premix) 1,000 unit ONCE PRN IV PICC LINE PLACEMENT 02/26/20 10:30 02/28/20 10:29 Levothyroxine Sodium (Synthroid) 25 mcg DAILY@0630 ORAL 02/21/20 06:30 03/01/20 06:29 02/26/20 05:59 Lidocaine HCl (Xylocaine 1% 30ml) 30 ml ONCE PRN INJ PICC LINE PLACEMENT 02/26/20 10:30 02/28/20 10:29 Linezolid (Zyvox) 600 mg EVERY 12 HOURS ORAL 02/24/20 21:00 02/29/20 20:59 02/26/20 09:27 Loperamide HCl (Imodium) 2 mg Q3H PRN NG Diarrhea 02/20/20 18:45 03/11/20 12:44 Metoprolol Tartrate (Lopressor) 50 mg Q12HR GT 02/20/20 21:00 05/13/20 08:59 02/26/20 09:28 Ondansetron HCl (Zofran) 4 mg Q6H PRN IVP Nausea & Vomiting 02/20/20 21:00 02/29/20 14:59 Piperacillin Sod/ Tazobactam Sod 3.375 gm/Dextrose 100 ml @ 25 mls/hr EVERY 8 HOURS IVPB 02/24/20 22:00 02/29/20 21:59 02/26/20 14:37 Abiodun Jacobo MD Feb 26, 2020 17:24
[2020-02-26] MEDS ORDERED: Dyna-Hex 2% Top Sol 2oz TOPIC SCH (20:00)
--- NOTE | 2020-02-26 20:46 | Neurology Progress Note ---
Interim History Interim History ROS Limited/Unobtainable: No Interim History stable, planning dc to SNF Objective Physical Exam Last Vital Signs Date Time Temp Pulse Resp B/P (MAP) Pulse Ox O2 Delivery O2 Flow Rate FiO2 02/26/20 16:00 97.8 103 21 109/70 (83) 98 02/26/20 09:00 Nasal Cannula 2.0 Laboratory Tests Test 02/26/20 06:00 White Blood Count 14.9 K/UL (4.8-10.8) H Red Blood Count 3.67 M/UL (4.20-5.40) L Hemoglobin 10.1 G/DL (12.0-16.0) L Hematocrit 30.3 % (37.0-47.0) L Mean Corpuscular Volume 82 FL (80-99) Mean Corpuscular Hemoglobin 27.6 PG (27.0-31.0) Mean Corpuscular Hemoglobin Concent 33.5 G/DL (32.0-36.0) Red Cell Distribution Width 14.5 % (11.6-14.8) Platelet Count 255 K/UL (150-450) Mean Platelet Volume 5.7 FL (6.5-10.1) L Neutrophils (%) (Auto) % (45.0-75.0) Lymphocytes (%) (Auto) % (20.0-45.0) Monocytes (%) (Auto) % (1.0-10.0) Eosinophils (%) (Auto) % (0.0-3.0) Basophils (%) (Auto) % (0.0-2.0) Differential Total Cells Counted 100 Neutrophils % (Manual) 88 % (45-75) H Lymphocytes % (Manual) 7 % (20-45) L Monocytes % (Manual) 3 % (1-10) Eosinophils % (Manual) 2 % (0-3) Basophils % (Manual) 0 % (0-2) Band Neutrophils 0 % (0-8) Platelet Estimate Adequate Platelet Morphology Normal Red Blood Cell Morphology Normal Erythrocyte Sedimentation Rate 101 MM/HR (0-30) H Prothrombin Time 11.3 SEC (9.30-11.50) Prothromb Time International Ratio 1.1 (0.9-1.1) Activated Partial Thromboplast Time 30 SEC (23-33) Sodium Level 138 MMOL/L (136-145) Potassium Level 4.6 MMOL/L (3.5-5.1) Chloride Level 102 MMOL/L (98-107) Carbon Dioxide Level 27 MMOL/L (21-32) Anion Gap 9 mmol/L (5-15) Blood Urea Nitrogen 25 mg/dL (7-18) H Creatinine 0.9 MG/DL (0.55-1.30) Estimat Glomerular Filtration Rate > 60 mL/min (>60) Glucose Level 104 MG/DL (74-106) Calcium Level 8.6 MG/DL (8.5-10.1) Total Bilirubin 0.3 MG/DL (0.2-1.0) Aspartate Amino Transf (AST/SGOT) 28 U/L (15-37) Alanine Aminotransferase (ALT/SGPT) 27 U/L (12-78) Alkaline Phosphatase 123 U/L (46-116) H C-Reactive Protein, Quantitative 3.9 mg/dL (0.00-0.90) H Total Protein 6.9 G/DL (6.4-8.2) Albumin 1.8 G/DL (3.4-5.0) L Globulin 5.1 g/dL Albumin/Globulin Ratio 0.4 (1.0-2.7) L Amylase Level 33 U/L (25-115) Lipase 208 U/L (73-393) Head: normocophalic, atraumatic Neck: no rigidity EENT: benign Neurologic Exam Sensory: other - cc 35 min Objective alert, tracks with eyes, Right sided weaker than left Impression/Recommendations Problems: (1) Septic shock (2) Anemia (3) Elevated troponin (4) Sepsis (5) Decubitus skin ulcer Status: stable Diagnostic Impression Acute encephalopathy in the context of sepsis Dementia, likely vascular Hx of strokes Monitor neuro exam Delirium precautions atb per primary asa daily PT OT Luis Nash MD Feb 26, 2020 20:46
== END 2020-02-26 18:20 | DRG 853 ==
LOC: EDBD 13:42 → EMR 15:19 → EDBEDREQ 17:21 → 2W 17:40 → 2E 02-09 13:20 → 4E 02-20 17:54
PROC: BT1FZZZ Fluoroscopy of Left Kidney, Ureter and Bladder (ICD-10-PCS; principal; 2020-02-18 14:00)
PROC: 0T778DZ Dilation of Left Ureter with Intraluminal Device, Via Natural or Artificial Opening Endoscopic (ICD-10-PCS; principal; 2020-02-18 14:00)
DX: A41.59 Other Gram-negative sepsis (principal); G93.41 Metabolic encephalopathy; R65.21 Severe sepsis with septic shock; J18.9 Pneumonia, unspecified organism; I21.4 Non-ST elevation (NSTEMI) myocardial infarction; N39.0 Urinary tract infection, site not specified; N17.9 Acute kidney failure, unspecified; I69.959 Hemiplegia and hemiparesis following unspecified cerebrovascular disease affecting unspecified side; I13.0 Hypertensive heart and chronic kidney disease with heart failure and stage 1 through stage 4 chronic kidney disease, or unspecified chronic kidney disease; J44.0 Chronic obstructive pulmonary disease with (acute) lower respiratory infection; B37.49 Other urogenital candidiasis; N13.6 Pyonephrosis; E87.0 Hyperosmolality and hypernatremia; K92.2 Gastrointestinal hemorrhage, unspecified; E87.1 Hypo-osmolality and hyponatremia; B95.2 Enterococcus as the cause of diseases classified elsewhere; R31.9 Hematuria, unspecified; E11.22 Type 2 diabetes mellitus with diabetic chronic kidney disease; N18.9 Chronic kidney disease, unspecified; I50.9 Heart failure, unspecified; Z90.5 Acquired absence of kidney; E78.5 Hyperlipidemia, unspecified; E03.9 Hypothyroidism, unspecified; K21.9 Gastro-esophageal reflux disease without esophagitis; Z95.0 Presence of cardiac pacemaker; F01.50 Vascular dementia, unspecified severity, without behavioral disturbance, psychotic disturbance, mood disturbance, and anxiety; R19.7 Diarrhea, unspecified; L89.156 Pressure-induced deep tissue damage of sacral region; L89.526 Pressure-induced deep tissue damage of left ankle; L89.516 Pressure-induced deep tissue damage of right ankle; N31.9 Neuromuscular dysfunction of bladder, unspecified; R33.9 Retention of urine, unspecified; R13.10 Dysphagia, unspecified; Z93.1 Gastrostomy status; R00.0 Tachycardia, unspecified; D50.9 Iron deficiency anemia, unspecified; D47.3 Essential (hemorrhagic) thrombocythemia
CPT/HCPCS: 36415; 36600; 71045; 74018; 74176; 74177; 74230; 74420; 76000; 76770; 80048; 80053; 80202; 81003; 82150; 82270; 82728; 82803; 82962; 83540; 83550; 83605; 83690; 83735; 83880; 84100; 84484; 85007; 85025; 85610; 85651; 85730; 86140; 86710; 86850; 86900; 86901; 86920; 87040; 87070; 87081; 87086; 87181; 87205; 87324; 93005; 93306; 94003; 94150; 94664; 96361; 96365; 99291; J2250; J2405; J7030; J8499